=== PATIENT | female | born 1950 | race Caucasian/White ===

== ENCOUNTER 2017-03-11 16:59 | Inpatient (IN) ==
[2017-03-11] MEDS ORDERED: 0.9 % Sodium Chloride 1,000 ML IVC ONE ×3 (17:12→19:53)
--- NOTE | 2017-03-11 18:19 | Emergency Department Note ---
Disposition Clinical Impression: Neck pain, Elevated troponin I level Hypotension Qualifiers: Hypotension type: unspecified hypotension type Qualified Code(s): I95.9 - Hypotension, unspecified [id number] kidney injury Qualifiers: Acute renal failure type: unspecified Chronic kidney disease stage: unspecified stage Qualified Code(s): N17.9 - Acute kidney failure, unspecified; N18.9 - Chronic kidney disease, unspecified; N18.9 - Chronic kidney disease, unspecified Disposition: Admitted As Inpatient Condition: Serious Time of Disposition: 23:09 General Adult HPI - General Chief complaint: ED Altered Mental Status Stated complaint: vision changes Time Seen by Provider: 03/11/17 17:10 Source: EMS Nursing Notes Reviewed: Yes Vital Signs Reviewed: Yes - History of Present Illness HPI Narrative: 66-year-old female who presents after a presyncopal episode with bilateral blurry vision and generalized weakness. Patient also complains of exacerbation of her neck pain. Patient states she has chronic neck pain but it seems worse. Patient states she was driving at the time when her symptoms started. Patient denies any chest pain but is just weak all over. States neck pain is 10 /10 and denies headache. Patient denies any recent sick contacts. She has a history of [place] COPD, hypertension, hyperlipidemia, and renal disease but no history of CVA/TIA. Pain Scale: 4 - Related Data Home Medications Medication Instructions Recorded Confirmed Albuterol Sulfate [Albuterol 2 puff IH Q4H PRN 11/04/15 03/11/17 Inhaler] Fluticasone Propionate Nasal 2 spray NS BID 11/04/15 03/11/17 [Flonase] Zolpidem [Ambien] 10 mg PO HS PRN 11/04/15 03/11/17 Apixaban [Eliquis] 5 mg PO BID 03/11/17 03/11/17 Baclofen 20 mg PO TID 03/11/17 03/11/17 Metoprolol XL (24 HR) Succ [Toprol 50 mg PO DAILY 03/11/17 03/11/17 Xl] Nitroglycerin [Nitrostat] 0.4 mg SL Q5-6MIN PRN 03/11/17 03/11/17 Nystatin POWDER [Nystop] 1 appl TP BID 03/11/17 03/11/17 Oxycodone HCl/Acetaminophen 1 tab PO TID PRN MDD 3 03/11/17 03/11/17 [Percocet 7.5-325 mg Tablet] Spironolactone [Aldactone] 50 mg PO DAILY 03/11/17 03/11/17 Tizanidine HCl [Zanaflex] 4 mg PO Q8H PRN 03/11/17 03/11/17 Venlafaxine HCl [Venlafaxine HCl 75 mg PO QDPC 03/11/17 03/11/17 ER] Previous Rx's Medication Instructions Recorded Furosemide [Lasix] 40 mg PO BID #60 tablet 11/12/15 Lansoprazole [Prevacid] 30 mg PO DAILY #30 capsule. 11/12/15 Modafinil [Provigil] 200 mg PO BID #60 tablet 11/12/15 Pramipexole [Mirapex] 0.5 mg PO DAILY #30 tablet 11/12/15 RisperiDONE [Risperdal] 1 mg PO HS 30 Days tablet 11/12/15 Simvastatin [Zocor] 20 mg PO HS #30 tablet 11/12/15 Apixaban [Eliquis] 5 mg PO BID #60 tablet 05/27/16 Allergies Allergy/AdvReac Type Severity Reaction Status Date / Time aspirin Allergy Nausea Verified 03/23/16 21:09 adhesive tape AdvReac See Verified 03/23/16 21:09 Comments cephalexin [From Keflex] AdvReac See Verified 03/23/16 21:09 Comments codeine AdvReac Abdominal Verified 03/25/16 16:21 Pain Iodinated Contrast- Oral and AdvReac Hives Verified 03/23/16 21:09 IV Dye mannitol [From Reclast] AdvReac See Verified 03/23/16 21:09 Comments water for injection,sterile AdvReac See Verified 03/23/16 21:09 [From Reclast] Comments zoledronic acid AdvReac See Verified 03/23/16 21:09 [From Reclast] Comments All systems ED: reviewed and negative except as stated. Review of Systems: As Per HPI Constitutional: Reports: weakness. Denies: fever Eyes: Reports: vision change ENT ED: Denies: congestion Cardiovascular: Denies: chest pain, palpitations, dyspnea on exertion Respiratory: Denies: cough, dyspnea, wheezes, hemoptysis Gastrointestinal: Denies: abdominal pain, nausea, vomiting, diarrhea Genitourinary: Denies: urgency, dysuria Musculoskeletal: Reports: neck pain. Denies: back pain Integumentary: Denies: rash Neurological: Reports: weakness, confusion. Denies: headache, numbness, paresthesias Psychiatric: Reports: anxiety Endocrine: Reports: fatigue Past Medical History - Past Medical History Attestation: Yes The following information was validated with the patient. Source: patient Medical history: Reports: arthritis, COPD, DVT, GERD, hyperlipidemia, hypertension, migraine, myocardial infarction, RA, renal disease, other Surgical history: Reports: appendectomy, colectomy, orthopedic, other, pacemaker /AICD, other Psychiatric history: Reports: no psych history CHAIN CARRIER history: Reports: no CHAIN CARRIER history - Social History Smoking Status: Never smoker Smokeless Tobacco Status: No Alcohol use: Reports: none Drug use: Reports: none Physical Exam Vital Signs Temperature 97.6 F 03/11/17 17:08 Pulse Rate 107 03/11/17 17:08 Respiratory Rate 16 03/11/17 17:08 Blood Pressure 51/32 03/11/17 17:08 O2 Sat by Pulse Oximetry 92 03/11/17 17:08 Temperature 98.0 F 03/11/17 21:15 Pulse Rate 65 03/11/17 22:00 Respiratory Rate 18 03/11/17 22:00 Blood Pressure 82/63 03/11/17 22:00 O2 Sat by Pulse Oximetry 100 03/11/17 22:00 Oxygen Delivery Oxygen Delivery Nasal Cannula 66-year-old female who is alert and oriented 3 and GCS of 15 but appears pale and is generally weak all over and lethargic. Patient has no loss of sensation to the extremities. Patient has strength that equally at 3/5 bilaterally upper and lower extremities. Patient has no pronator drift. Patient has no facial droop or slurring of words. Patient presented hypotensive at 51/32 and is actively having any chest pain or shortness of breath. - General Limitations: physical limitation General appearance: alert, lethargic - Head Head exam: atraumatic, normocephalic, normal inspection - Eye Eye exam: Present: normal appearance, PERRL, EOMI - ENT ENT exam: normal exam, normal oropharynx, mucous membranes dry - Neck Neck exam: Present: normal inspection, full ROM, trachea midline, tenderness - Chest Chest inspection: Present: normal inspection, symmetric chest wall rise - Respiratory Respiratory exam: Present: normal lung sounds bilaterally. Absent: respiratory distress, wheezes - Cardiovascular Cardiovascular exam: Present: normal rhythm, irregular rhythm, normal heart sounds - Abdominal Exam Abdominal exam: Present: soft, Non-Tender. Absent: tenderness, distention, guarding, rebound, rigidity - Extremities Exam Extremities exam: Present: normal inspection, full ROM. Absent: tenderness, pedal edema Course - Consultations Consultation #1: Troponin 0.04 called by the lab Time: 18:46 Vital Signs Temperature 97.6 F 03/11/17 17:08 Pulse Rate 107 03/11/17 17:08 Respiratory Rate 16 03/11/17 17:08 Blood Pressure 51/32 03/11/17 17:08 O2 Sat by Pulse Oximetry 92 03/11/17 17:08 Temperature 98.0 F 03/11/17 21:15 Pulse Rate 65 03/11/17 22:00 Respiratory Rate 18 03/11/17 22:00 Blood Pressure 82/63 03/11/17 22:00 O2 Sat by Pulse Oximetry 100 03/11/17 22:00 Oxygen Delivery Oxygen Delivery Nasal Cannula Medical Decision Making - [facility] Narrative Medical decision making narrative: Patient presents with generalized weakness and hypertension and neck pain is concerning for carotid dissection/vertebrobasilar dissection, CVA/TIA, heart failure, ACS/ND, PE. Patient had negative or logic focal deficits, no chest pain or signs of ischemia on her EKG, pulses equal bilaterally. Tests a d-dimer which came back negative and patient is not symptomatically short of breath simply generally weak. Patient is anemic chronically and is around her baseline. Patient has one kidney and has slight worsening of BUN and creatinine which was already elevated and the rest of patient's chemistries show no abnormalities. Troponin mildly elevated at 0.04 which may be reactionary to the patient's hypotension. Patient is responding to fluid boluses and is currently on her third with a blood pressure 77/55. Patient's is no longer lethargic. Patient will receive another liter. Central line was placed in right IJ by Dr. Farris emergency medicine resident and patient tolerated the procedure well. Post chest x-ray shows proper placement and no pneumothorax. Patient now has vascular access in case she needs pressors to sustain her blood pressure. CT of head and neck were negative for any abnormalities. Chest x-ray showed no abnormalities. Current plans the patient to continue treatment and evaluation in ICU. After 4 L IV normal saline patient has a blood pressure systolic greater than 100. Patient was accepted to the ICU by Dr. Daniels. - Lab Data Lab results reviewed: Yes I reviewed the patient's lab results. Lab results narrative: Short CBC 03/11/17 Range/Units 18:09 WBC 6.3 (4.3-11.1) K/mcL Hgb 10.1 L (11.5-15.4) g/dL Hct 32.7 L (35.3-44.9) % Plt Count 184 (140-400) K/mcL Neutrophils # 4.0 (1.6-8.9) K/mcL BMP 03/11/17 Range/Units 18:03 Sodium 141 (136-145) mEq/L Potassium 4.5 (3.5-4.5) mEq/L Chloride 109 (98-109) mEq/L Carbon Dioxide 23 (19-29) mEq/L BUN 35 H (7-20) mg/dL Creatinine 1.77 H (0.57-1.11) mg/dL Glucose 80 (70-99) mg/dL Calcium 8.2 L (8.6-10.8) mg/dL Cardiac Enzymes 03/11/17 Range/Units 18:09 Troponin I 0.04 H* (0-0.03) ng/mL Liver Function 03/11/17 Range/Units 18:03 Total Bilirubin 0.4 (0.2-1.2) mg/dL Direct Bilirubin 0.2 (0.0-0.5) mg/dL AST 22 (5-34) Units/L ALT 12 (0-55) Units/L Alkaline Phosphatase 88 (38-126) Units/L Albumin 3.0 L (3.5-5.0) g/dL Urine 03/11/17 Range/Units 18:22 Urine Color Yellow (Yellow) Urine Clarity Clear (Clear) Urine pH 6.0 (5.0-8.0) pH Units Ur Specific [place] 1.015 (1.010-1.025) Urine Protein Negative (Neg-Trace) mg/dL Urine Glucose (UA) Normal (Normal) mg/dL Result diagrams: 03/11/17 18:09 12/14/17 18:03 Lab Results 03/11/17 03/11/17 03/11/17 Range/Units 18:03 18:03 18:09 WBC 6.3 (4.3-11.1) K/mcL RBC 3.49 L (3.82-4.97) M/mcL Hgb 10.1 L (11.5-15.4) g/dL Hct 32.7 L (35.3-44.9) % MCV 93.7 (83.0-100.0) fL MCH 28.9 (28.0-33.3) pg MCHC 30.9 L (31.6-35.5) g/dL RDW 15.9 H (11.5-14.5) % Plt Count 184 (140-400) K/mcL MPV 10.6 (9.4-12.4) fL Immature Gran % 0.5 (0-4) % Seg Neutrophils % 62.9 % Lymphocytes % 23.8 % Monocytes % 11.5 % Eosinophils % 0.8 % Basophils % 0.5 % Neutrophils # 4.0 (1.6-8.9) K/mcL Lymphocytes # 1.5 (0.6-4.6) K/mcL Monocytes # 0.7 (0.0-1.3) K/mcL Eosinophils # 0.1 (0.0-0.6) K/mcL Basophils # 0.0 (0.0-0.2) K/mcL APTT (26.0-36.0) Seconds D-Dimer (0-500) ng/mLFEU Sodium 141 (136-145) mEq/L Potassium 4.5 (3.5-4.5) mEq/L Chloride 109 (98-109) mEq/L Carbon Dioxide 23 (19-29) mEq/L BUN 35 H (7-20) mg/dL Creatinine 1.77 H (0.57-1.11) mg/dL Est GFR ( Amer) 35 L (> 60) Est GFR (Non-Af Amer) 29 L (> 60) BUN/Creatinine Ratio 20 (6-26) Glucose 80 (70-99) mg/dL Calculated Osmolality 299 (280-300) Lactic Acid (0.5-2.2) mmol/L Calcium 8.2 L (8.6-10.8) mg/dL Total Bilirubin 0.4 (0.2-1.2) mg/dL Direct Bilirubin 0.2 (0.0-0.5) mg/dL Indirect Bilirubin 0.2 (0.0-1.2) mg/dL AST 22 (5-34) Units/L ALT 12 (0-55) Units/L Alkaline Phosphatase 88 (38-126) Units/L Troponin I (0-0.03) ng/mL B-Natriuretic Peptide (0-100) pg/mL Serum Total Protein 6.4 (6.0-8.3) g/dL Albumin 3.0 L (3.5-5.0) g/dL Globulin 3.4 (2.4-3.5) g/dL Albumin/Globulin Ratio 0.9 L (1.1-2.2) Lipase 14 (8-78) Units/L Random Cortisol 10.3 mcg/dl Urine Color (Yellow) Urine Clarity (Clear) Urine pH (5.0-8.0) pH Units Ur Specific [place] (1.010-1.025) Urine Protein (Neg-Trace) mg/dL Urine Glucose (UA) (Normal) mg/dL Urine Ketones (Negative) mg/dL Urine Blood (Negative) Urine Nitrite (Negative) Urine Bilirubin (Negative) Urine Urobilinogen (Normal) mg/dL Ur Leukocyte Esterase (Negative) Ur Culture Indicated? (NO) Blood Type Antibody Screen 03/11/17 03/11/17 03/11/17 Range/Units 18:09 18:09 18:09 WBC (4.3-11.1) K/mcL RBC (3.82-4.97) M/mcL Hgb (11.5-15.4) g/dL Hct (35.3-44.9) % MCV (83.0-100.0) fL MCH (28.0-33.3) pg MCHC (31.6-35.5) g/dL RDW (11.5-14.5) % Plt Count (140-400) K/mcL MPV (9.4-12.4) fL Immature Gran % (0-4) % Seg Neutrophils % % Lymphocytes % % Monocytes % % Eosinophils % % Basophils % % Neutrophils # (1.6-8.9) K/mcL Lymphocytes # (0.6-4.6) K/mcL Monocytes # (0.0-1.3) K/mcL Eosinophils # (0.0-0.6) K/mcL Basophils # (0.0-0.2) K/mcL APTT 21.5 L (26.0-36.0) Seconds D-Dimer 358 (0-500) ng/mLFEU Sodium (136-145) mEq/L Potassium (3.5-4.5) mEq/L Chloride (98-109) mEq/L Carbon Dioxide (19-29) mEq/L BUN (7-20) mg/dL Creatinine (0.57-1.11) mg/dL Est GFR ( Amer) (> 60) Est GFR (Non-Af Amer) (> 60) BUN/Creatinine Ratio (6-26) Glucose (70-99) mg/dL Calculated Osmolality (280-300) Lactic Acid 1.6 (0.5-2.2) mmol/L Calcium (8.6-10.8) mg/dL Total Bilirubin (0.2-1.2) mg/dL Direct Bilirubin (0.0-0.5) mg/dL Indirect Bilirubin (0.0-1.2) mg/dL AST (5-34) Units/L ALT (0-55) Units/L Alkaline Phosphatase (38-126) Units/L Troponin I 0.04 H* (0-0.03) ng/mL B-Natriuretic Peptide (0-100) pg/mL Serum Total Protein (6.0-8.3) g/dL Albumin (3.5-5.0) g/dL Globulin (2.4-3.5) g/dL Albumin/Globulin Ratio (1.1-2.2) Lipase (8-78) Units/L Random Cortisol mcg/dl Urine Color (Yellow) Urine Clarity (Clear) Urine pH (5.0-8.0) pH Units Ur Specific [place] (1.010-1.025) Urine Protein (Neg-Trace) mg/dL Urine Glucose (UA) (Normal) mg/dL Urine Ketones (Negative) mg/dL Urine Blood (Negative) Urine Nitrite (Negative) Urine Bilirubin (Negative) Urine Urobilinogen (Normal) mg/dL Ur Leukocyte Esterase (Negative) Ur Culture Indicated? (NO) Blood Type Antibody Screen 03/11/17 03/11/17 03/11/17 Range/Units 18:09 18:09 18:22 WBC (4.3-11.1) K/mcL RBC (3.82-4.97) M/mcL Hgb (11.5-15.4) g/dL Hct (35.3-44.9) % MCV (83.0-100.0) fL MCH (28.0-33.3) pg MCHC (31.6-35.5) g/dL RDW (11.5-14.5) % Plt Count (140-400) K/mcL MPV (9.4-12.4) fL Immature Gran % (0-4) % Seg Neutrophils % % Lymphocytes % % Monocytes % % Eosinophils % % Basophils % % Neutrophils # (1.6-8.9) K/mcL Lymphocytes # (0.6-4.6) K/mcL Monocytes # (0.0-1.3) K/mcL Eosinophils # (0.0-0.6) K/mcL Basophils # (0.0-0.2) K/mcL APTT (26.0-36.0) Seconds D-Dimer (0-500) ng/mLFEU Sodium (136-145) mEq/L Potassium (3.5-4.5) mEq/L Chloride (98-109) mEq/L Carbon Dioxide (19-29) mEq/L BUN (7-20) mg/dL Creatinine (0.57-1.11) mg/dL Est GFR ( Amer) (> 60) Est GFR (Non-Af Amer) (> 60) BUN/Creatinine Ratio (6-26) Glucose (70-99) mg/dL Calculated Osmolality (280-300) Lactic Acid (0.5-2.2) mmol/L Calcium (8.6-10.8) mg/dL Total Bilirubin (0.2-1.2) mg/dL Direct Bilirubin (0.0-0.5) mg/dL Indirect Bilirubin (0.0-1.2) mg/dL AST (5-34) Units/L ALT (0-55) Units/L Alkaline Phosphatase (38-126) Units/L Troponin I (0-0.03) ng/mL B-Natriuretic Peptide 184 H (0-100) pg/mL Serum Total Protein (6.0-8.3) g/dL Albumin (3.5-5.0) g/dL Globulin (2.4-3.5) g/dL Albumin/Globulin Ratio (1.1-2.2) Lipase (8-78) Units/L Random Cortisol mcg/dl Urine Color Yellow (Yellow) Urine Clarity Clear (Clear) Urine pH 6.0 (5.0-8.0) pH Units Ur Specific [place] 1.015 (1.010-1.025) Urine Protein Negative (Neg-Trace) mg/dL Urine Glucose (UA) Normal (Normal) mg/dL Urine Ketones Negative (Negative) mg/dL Urine Blood Negative (Negative) Urine Nitrite Negative (Negative) Urine Bilirubin Negative (Negative) Urine Urobilinogen Normal (Normal) mg/dL Ur Leukocyte Esterase Negative (Negative) Ur Culture Indicated? NO (NO) Blood Type O POSITIVE Antibody Screen NEGATIVE - Radiology Data Radiology results reviewed: Yes I reviewed the patient's radiology results. Head CT 03/11/17 17:15 IMPRESSION: No acute intracranial abnormality. D/ / Marce Dumont Cha, MD / Marce Dumont Cha, MD Interpreting Provider: Marce Dumont Cha, MD Cervical Spine CT 03/11/17 19:24 IMPRESSION: No acute abnormality of the cervical spine. D/ / Marce Dumont Cha, MD / Marce Dumont Cha, MD Interpreting Provider: Marce Dumont Cha, MD Chest X-Ray 03/11/17 20:24 IMPRESSION: Line placement without complicating feature. D/ / Ti Pal MD / Ti Pal MD Interpreting Provider: Ti Pal MD - EKG Data EKG #1 EKG attestation: Yes I reviewed and interpreted this EKG. EKG results narrative: EKG taken 03/11/2017 at 1701 hrs. shows A. fib at a rate of [address] elevation or depressions noted. Slight QT prolongation. His EKG for comparison taken 05/27/2016 shows a ventricular paced rhythm at 65 beats a minute.
[2017-03-11 18:20] LABS: Basophils % 0.5 %; Eosinophils # 0.1 K/mcL (0.0-0.6); Eosinophils % 0.8 %; Hematocrit 32.7 % (35.3-44.9); Hemoglobin 10.1 g/dL (11.5-15.4); Immature Granulocytes % 0.5 % (0-4); Lymphocytes # 1.5 K/mcL (0.6-4.6); Lymphocytes % 23.8 %; Mean Corpuscular HGB Conc 30.9 g/dL (31.6-35.5); Mean Corpuscular Hemoglobin 28.9 pg (28.0-33.3); Mean Corpuscular Volume 93.7 fL (83.0-100.0); Mean Platelet Volume 10.6 fL (9.4-12.4); Monocytes # 0.7 K/mcL (0.0-1.3); Monocytes % 11.5 %; Platelet Count 184 K/mcL (140-400); Red Blood Count 3.49 M/mcL (3.82-4.97); Red Cell Distribution Width 15.9 % (11.5-14.5); Segmented Neutrophils % 62.9 %
[2017-03-11 18:29] LABS: Activated Partial Thrombo Time 21.5 Seconds (26.0-36.0)
[2017-03-11 18:35] LABS: Albumin/Globulin Ratio 0.9 (1.1-2.2); Bilirubin,Direct 0.2 mg/dL (0.0-0.5); Bilirubin,Indirect 0.2 mg/dL (0.0-1.2); Bilirubin,Total 0.4 mg/dL (0.2-1.2); Calcium 8.2 mg/dL (8.6-10.8); Globulin 3.4 g/dL (2.4-3.5); Potassium 4.5 mEq/L (3.5-4.5); Total Protein 6.4 g/dL (6.0-8.3)
[2017-03-11 19:10] LABS: Bilirubin,Urine Negative (Negative); Blood,Urine Negative (Negative); Clarity,Urine Clear (Clear); Color,Urine Yellow (Yellow); Glucose,Urine (UA) Normal (Normal); Ketones,Urine Negative (Negative); Leukocyte Esterase,Urine Negative (Negative); Nitrite,Urine Negative (Negative); Protein,Urine Negative (Neg-Trace); Specific Gravity,Urine 1.015 (1.010-1.025); Urobilinogen,Urine Normal (Normal)
[2017-03-11] MEDS ORDERED: *HR* LORazepam 2 MG/ML VIAL IVP ONE (19:53)
--- NOTE | 2017-03-11 20:37 | Emergency Department Note ---
Disposition Clinical Impression: Hypotension Qualifiers: Hypotension type: unspecified hypotension type Qualified Code(s): I95.9 - Hypotension, unspecified Disposition: Admitted As Inpatient Condition: Fair Referrals: Addy Fraire MD [Primary Care Provider] - Forms: ED Satisfaction Letter General Adult HPI - General Chief complaint: ED Neuro Symptoms/Deficit Stated complaint: vision changes Time Seen by Provider: 03/11/17 17:10 Source: EMS - History of Present Illness HPI Narrative: This note is just on for procedure note for central line please refer to Dr. Morris note for full history and physical. Pain Scale: 7 - Related Data Home Medications Medication Instructions Recorded Confirmed Albuterol Sulfate [Albuterol 2 puff IH Q4H PRN 11/04/15 03/23/16 Inhaler] Fluticasone Propionate Nasal 2 spray NS BID 11/04/15 03/23/16 [Flonase] Interferon Beta-1A/Albumin [Rebif 0.5 ml IM QWEEK 11/04/15 03/23/16 44 Mcg/0.5 ml Syringe] Zolpidem [Ambien] 5 mg PO HS PRN 11/04/15 03/23/16 Acetaminophen [Tylenol] 500 mg PO Q6HR PRN 11/11/15 03/23/16 PredniSONE [Albin] 10 mg PO Q48H 03/23/16 03/23/16 Previous Rx's Medication Instructions Recorded Furosemide [Lasix] 40 mg PO BID #60 tablet 11/12/15 Lansoprazole [Prevacid] 30 mg PO DAILY #30 capsule. 11/12/15 Lisinopril [Zestril] 20 mg PO BID #30 tablet 11/12/15 Metoprolol Succinate 100 mg PO DAILY 30 Days tab.er.24h 11/12/15 Modafinil [Provigil] 200 mg PO BID #60 tablet 11/12/15 Pramipexole [Mirapex] 0.5 mg PO DAILY #30 tablet 11/12/15 RisperiDONE [Risperdal] 1 mg PO HS 30 Days tablet 11/12/15 Simvastatin [Zocor] 20 mg PO HS #30 tablet 11/12/15 amLODIPine [Norvasc] 5 mg PO DAILY 30 Days tablet 11/12/15 Apixaban [Eliquis] 5 mg PO BID #60 tablet 03/26/16 Metoprolol XL (24 HR) Succ [Toprol 100 mg PO DAILY tab.er.24h 03/26/16 Xl] Apixaban [Eliquis] 5 mg PO BID #60 tablet 05/27/16 Allergies Allergy/AdvReac Type Severity Reaction Status Date / Time aspirin Allergy Nausea Verified 03/23/16 21:09 adhesive tape AdvReac See Verified 03/23/16 21:09 Comments cephalexin [From Keflex] AdvReac See Verified 03/23/16 21:09 Comments codeine AdvReac Abdominal Verified 03/25/16 16:21 Pain Iodinated Contrast- Oral and AdvReac Hives Verified 03/23/16 21:09 IV Dye mannitol [From Reclast] AdvReac See Verified 03/23/16 21:09 Comments water for injection,sterile AdvReac See Verified 03/23/16 21:09 [From Reclast] Comments zoledronic acid AdvReac See Verified 03/23/16 21:09 [From Reclast] Comments Past Medical History - Past Medical History Medical history: Reports: arthritis, COPD, DVT, GERD, hyperlipidemia, hypertension, migraine, myocardial infarction, RA, renal disease, other Surgical history: Reports: appendectomy, colectomy, orthopedic, other, pacemaker /AICD, other Psychiatric history: Reports: no psych history PATIENT RELATIONS COORDINATOR history: Reports: no PATIENT RELATIONS COORDINATOR history - Social History Smoking Status: Never smoker Smokeless Tobacco Status: No Alcohol use: Reports: none Drug use: Reports: none Physical Exam - General General appearance: lethargic Course Vital Signs Temperature 97.6 F 03/11/17 17:08 Pulse Rate 107 03/11/17 17:08 Respiratory Rate 16 03/11/17 17:08 Blood Pressure 51/32 03/11/17 17:08 O2 Sat by Pulse Oximetry 92 03/11/17 17:08 Temperature 97.6 F 03/11/17 17:08 Pulse Rate 65 03/11/17 18:58 Respiratory Rate 12 03/11/17 18:58 Blood Pressure 77/55 03/11/17 18:58 O2 Sat by Pulse Oximetry 89 03/11/17 18:58 Oxygen Delivery Oxygen Delivery Nasal Cannula Procedures - Central Line Placement Right IJ Central Line Inserted*: Yes Central Line Catheter Replacement*: Yes Central Line Insertion: elective Consent Obtained: written consent Procedural Pause: verify patient name and date of , timeout performed per policy, davon and assess the site, assemble equipment and verify supplies, perform hand hygiene Patient Placed on Monitor/Pulse Ox: Yes During the Procedure: clinician is wearing sterile gloves, cap, mask,& gown during insertion, sterile field and sterile technique are maintained, patient's face is covered with drape or mask and wearing a cap, everyone in room is wearing a mask Central Line Prep: Chlorhexidine scrub Prep the Procedure Site: apply chloraprep to the skin using a back and forth scrubbing motion, apply chloraprep for 30 seconds (upper body), 1-2 min ( femoral sites), allow prep to dry, drape the patient with a full body drape Local Anesthetic: lidocaine 1% Amount of anesthesia used (mL): 3 Ultrasound Used for Placement: Yes Central Line Lumen Inserted: triple Post Procedure: sutured in place, good blood return, all ports aspirated, flushed, capped, sterile dressing applied, guide wire removed and visualized Post Procedure X-Ray: tip of catheter in good position, no pneumothorax seen Patient Tolerated Procedure: well, no complications Complications: none Name of Clinician Inserting Central Line: Dr. Celso Farris Clinician Assisting/Completing Checklist: Dr. Ross Enrique Date: 03/11/17 Time: 20:38 Medical Decision Making - MDM Narrative Medical decision making narrative: This note is just on for procedure note for central line please refer to Dr. Morris note for full history and physical. - Lab Data Result diagrams: 03/11/17 18:09 03/11/17 18:03 Lab Results 03/11/17 03/11/17 03/11/17 Range/Units 18:03 18:09 18:09 WBC 6.3 (4.3-11.1) K/mcL RBC 3.49 L (3.82-4.97) M/mcL Hgb 10.1 L (11.5-15.4) g/dL Hct 32.7 L (35.3-44.9) % MCV 93.7 (83.0-100.0) fL MCH 28.9 (28.0-33.3) pg MCHC 30.9 L (31.6-35.5) g/dL RDW 15.9 H (11.5-14.5) % Plt Count 184 (140-400) K/mcL MPV 10.6 (9.4-12.4) fL Immature Gran % 0.5 (0-4) % Seg Neutrophils % 62.9 % Lymphocytes % 23.8 % Monocytes % 11.5 % Eosinophils % 0.8 % Basophils % 0.5 % Neutrophils # 4.0 (1.6-8.9) K/mcL Lymphocytes # 1.5 (0.6-4.6) K/mcL Monocytes # 0.7 (0.0-1.3) K/mcL Eosinophils # 0.1 (0.0-0.6) K/mcL Basophils # 0.0 (0.0-0.2) K/mcL APTT 21.5 L (26.0-36.0) Seconds D-Dimer 358 (0-500) ng/mLFEU Sodium 141 (136-145) mEq/L Potassium 4.5 (3.5-4.5) mEq/L Chloride 109 (98-109) mEq/L Carbon Dioxide 23 (19-29) mEq/L BUN 35 H (7-20) mg/dL Creatinine 1.77 H (0.57-1.11) mg/dL Est GFR ( Amer) 35 L (> 60) Est GFR (Non-Af Amer) 29 L (> 60) BUN/Creatinine Ratio 20 (6-26) Glucose 80 (70-99) mg/dL Calculated Osmolality 299 (280-300) Lactic Acid (0.5-2.2) mmol/L Calcium 8.2 L (8.6-10.8) mg/dL Total Bilirubin 0.4 (0.2-1.2) mg/dL Direct Bilirubin 0.2 (0.0-0.5) mg/dL Indirect Bilirubin 0.2 (0.0-1.2) mg/dL AST 22 (5-34) Units/L ALT 12 (0-55) Units/L Alkaline Phosphatase 88 (38-126) Units/L Troponin I (0-0.03) ng/mL B-Natriuretic Peptide (0-100) pg/mL Serum Total Protein 6.4 (6.0-8.3) g/dL Albumin 3.0 L (3.5-5.0) g/dL Globulin 3.4 (2.4-3.5) g/dL Albumin/Globulin Ratio 0.9 L (1.1-2.2) Lipase 14 (8-78) Units/L Urine Color (Yellow) Urine Clarity (Clear) Urine pH (5.0-8.0) pH Units Ur Specific [place] (1.010-1.025) Urine Protein (Neg-Trace) mg/dL Urine Glucose (UA) (Normal) mg/dL Urine Ketones (Negative) mg/dL Urine Blood (Negative) Urine Nitrite (Negative) Urine Bilirubin (Negative) Urine Urobilinogen (Normal) mg/dL Ur Leukocyte Esterase (Negative) Ur Culture Indicated? (NO) Blood Type Antibody Screen 03/11/17 03/11/17 03/11/17 Range/Units 18:09 18:09 18:09 WBC (4.3-11.1) K/mcL RBC (3.82-4.97) M/mcL Hgb (11.5-15.4) g/dL Hct (35.3-44.9) % MCV (83.0-100.0) fL MCH (28.0-33.3) pg MCHC (31.6-35.5) g/dL RDW (11.5-14.5) % Plt Count (140-400) K/mcL MPV (9.4-12.4) fL Immature Gran % (0-4) % Seg Neutrophils % % Lymphocytes % % Monocytes % % Eosinophils % % Basophils % % Neutrophils # (1.6-8.9) K/mcL Lymphocytes # (0.6-4.6) K/mcL Monocytes # (0.0-1.3) K/mcL Eosinophils # (0.0-0.6) K/mcL Basophils # (0.0-0.2) K/mcL APTT (26.0-36.0) Seconds D-Dimer (0-500) ng/mLFEU Sodium (136-145) mEq/L Potassium (3.5-4.5) mEq/L Chloride (98-109) mEq/L Carbon Dioxide (19-29) mEq/L BUN (7-20) mg/dL Creatinine (0.57-1.11) mg/dL Est GFR ( Amer) (> 60) Est GFR (Non-Af Amer) (> 60) BUN/Creatinine Ratio (6-26) Glucose (70-99) mg/dL Calculated Osmolality (280-300) Lactic Acid 1.6 (0.5-2.2) mmol/L Calcium (8.6-10.8) mg/dL Total Bilirubin (0.2-1.2) mg/dL Direct Bilirubin (0.0-0.5) mg/dL Indirect Bilirubin (0.0-1.2) mg/dL AST (5-34) Units/L ALT (0-55) Units/L Alkaline Phosphatase (38-126) Units/L Troponin I 0.04 H* (0-0.03) ng/mL B-Natriuretic Peptide 184 H (0-100) pg/mL Serum Total Protein (6.0-8.3) g/dL Albumin (3.5-5.0) g/dL Globulin (2.4-3.5) g/dL Albumin/Globulin Ratio (1.1-2.2) Lipase (8-78) Units/L Urine Color (Yellow) Urine Clarity (Clear) Urine pH (5.0-8.0) pH Units Ur Specific [place] (1.010-1.025) Urine Protein (Neg-Trace) mg/dL Urine Glucose (UA) (Normal) mg/dL Urine Ketones (Negative) mg/dL Urine Blood (Negative) Urine Nitrite (Negative) Urine Bilirubin (Negative) Urine Urobilinogen (Normal) mg/dL Ur Leukocyte Esterase (Negative) Ur Culture Indicated? (NO) Blood Type Antibody Screen 03/11/17 03/11/17 Range/Units 18:09 18:22 WBC (4.3-11.1) K/mcL RBC (3.82-4.97) M/mcL Hgb (11.5-15.4) g/dL Hct (35.3-44.9) % MCV (83.0-100.0) fL MCH (28.0-33.3) pg MCHC (31.6-35.5) g/dL RDW (11.5-14.5) % Plt Count (140-400) K/mcL MPV (9.4-12.4) fL Immature Gran % (0-4) % Seg Neutrophils % % Lymphocytes % % Monocytes % % Eosinophils % % Basophils % % Neutrophils # (1.6-8.9) K/mcL Lymphocytes # (0.6-4.6) K/mcL Monocytes # (0.0-1.3) K/mcL Eosinophils # (0.0-0.6) K/mcL Basophils # (0.0-0.2) K/mcL APTT (26.0-36.0) Seconds D-Dimer (0-500) ng/mLFEU Sodium (136-145) mEq/L Potassium (3.5-4.5) mEq/L Chloride (98-109) mEq/L Carbon Dioxide (19-29) mEq/L BUN (7-20) mg/dL Creatinine (0.57-1.11) mg/dL Est GFR ( Amer) (> 60) Est GFR (Non-Af Amer) (> 60) BUN/Creatinine Ratio (6-26) Glucose (70-99) mg/dL Calculated Osmolality (280-300) Lactic Acid (0.5-2.2) mmol/L Calcium (8.6-10.8) mg/dL Total Bilirubin (0.2-1.2) mg/dL Direct Bilirubin (0.0-0.5) mg/dL Indirect Bilirubin (0.0-1.2) mg/dL AST (5-34) Units/L ALT (0-55) Units/L Alkaline Phosphatase (38-126) Units/L Troponin I (0-0.03) ng/mL B-Natriuretic Peptide (0-100) pg/mL Serum Total Protein (6.0-8.3) g/dL Albumin (3.5-5.0) g/dL Globulin (2.4-3.5) g/dL Albumin/Globulin Ratio (1.1-2.2) Lipase (8-78) Units/L Urine Color Yellow (Yellow) Urine Clarity Clear (Clear) Urine pH 6.0 (5.0-8.0) pH Units Ur Specific [place] 1.015 (1.010-1.025) Urine Protein Negative (Neg-Trace) mg/dL Urine Glucose (UA) Normal (Normal) mg/dL Urine Ketones Negative (Negative) mg/dL Urine Blood Negative (Negative) Urine Nitrite Negative (Negative) Urine Bilirubin Negative (Negative) Urine Urobilinogen Normal (Normal) mg/dL Ur Leukocyte Esterase Negative (Negative) Ur Culture Indicated? NO (NO) Blood Type O POSITIVE Antibody Screen NEGATIVE
--- NOTE | 2017-03-11 20:48 | Emergency Department Note ---
START Narrative - START START: I examined this patient and my medical decision-making was reviewed with the Resident Physician. I agree with the documented findings, disposition and treatment plan as described except to the extent set forth below. 66-year-old female presents emergency room for weakness as well as neck pain and upper back and shoulder pain. She got up this morning and states she felt fine and then was going to her doctor's appointment for a scheduled routine visit. She started feeling weak on the way N when she thought she was losing her vision. She was leaving to go home and was sent over to the ER as she began to feel more weak and was hypotensive. Upon arrival patient was 42/20 to use as with her blood pressure. She denies any vomiting or diarrhea. She did eat today. No cough or sputum production. No chest pain. She does feel slightly short of breath. Workup in the ER did not reveal any significant lab abnormalities other than a slightly elevated creatinine. She does only have one kidney. We did a CT of her head due to her weakness and that was negative. She is complaining of diffuse neck pain. She states she has chronic neck pain but felt worse today. I elected to do a CT of the cervical spine to rule out any pathological fractures. That was interpreted by radiology as negative. Chest x-ray was unchanged from previous. Patient received a couple liters of fluid and she was still hypotensive. We then placed a right internal jugular central line without any complications. This was done by Dr. Farris. Follow-up chest x-ray revealed the line to be in appropriate position without any abnormalities. We spoke with the hospitalist. Patient will be admitted to the ICU. Critical care time was 50 minutes spent in medical management of hypotensive issues as well as workup of the neck pain.
[2017-03-11] MEDS ORDERED: 0.9 % Sodium Chloride 1,000 ML IVC SCH (22:30)
[2017-03-11] MEDS ORDERED: *HR* OxyCODONE/APAP 7.5/325 TABLET PO PRN (22:50)
[2017-03-11] MEDS ORDERED: tiZANidine 4 MG TABLET PO PRN (22:50)
[2017-03-11] MEDS ORDERED: Baclofen 10 MG TABLET PO SCH (23:00)
--- NOTE | 2017-03-12 | Internal Med History&Physical ---
<Lewis Mary - Last Filed: 03/12/17 01:24> Date of Encounter: 03/12/17 Time of Encounter: 20:30 Assessment and Plan (1) Hypovolemic shock Current visit: Yes Status: Acute Patient has a known history of CHF, however clinically she did not seem like she was fluid overload and her last echocardiogram (2015) shows an EF of 60-65% . She only admitted to two bouts of loose stools and denied any vomiting. She denies any chest pain. EKG on arrival showed no ST-elevations or sings of ischemia. Original EKG did show signs of A-fib, but repeat EKG showed a paced rhythm. No recent illness, fever, or suspected source of infection. WBC count was normal. Her low blood pressure seems likely to be due to a combination of dehydration, given that her creatinine is above her baseline, and the fact that she was taking her antihypertensive medications while she was dehydrated. Patient was given 3 L of NS bolus in the ER. Her BP afterwards was 89/70. MAP is currently 65. - maintenance IV fluids. - Monitor MAP. Keep above 55. IV fluid bolus as needed. - Echocardiogram. - Hold BP medications. (2) Fcuwn-oh-itycihm kidney injury Current visit: Yes Status: Acute Baseline 0.8 to 0.9. Creatinine currently at 1.77. Likely secondary to dehydration. - IV fluids. Qualifiers: Acute renal failure type: unspecified Chronic kidney disease stage: unspecified stage Qualified Code(s): N17.9 - Acute kidney failure, unspecified ; N18.9 - Chronic kidney disease, unspecified; N18.9 - Chronic kidney disease, unspecified (3) History of DVT (deep vein thrombosis) Current visit: Yes Status: Acute - On eliquis. (4) Elevated troponin I level Current visit: Yes Status: Acute Troponin level at 0.04. Likely due to tachycardia and demand ischemia. -Continue to trend troponin. (5) GERD (gastroesophageal reflux disease) Current visit: Yes Status: Acute - On lansoprazole. Qualifiers: Esophagitis presence: esophagitis presence not specified Qualified Code(s) : K21.9 - Gastro-esophageal reflux disease without esophagitis (6) History of nephrectomy, unilateral Current visit: Yes Status: Acute (7) History of hyperlipidemia Current visit: Yes Status: Acute - On simvistatin. (8) COPD (chronic obstructive pulmonary disease) Current visit: Yes Status: Acute - Albuterol PRN. Qualifiers: COPD type: chronic bronchitis Chronic bronchitis type: unspecified Qualified Code(s): J42 - Unspecified chronic bronchitis (9) History of CHF (congestive heart failure) Current visit: Yes Status: Acute Last echocardiogram in 2016 shows EF of 60-65%. - Repeat echocardiogram. (10) DVT prophylaxis Current visit: Yes Status: Acute -On eliquis. Internal Medicine - H&P: HPI Chief complaint: SOB, blurry vision, weakeness Admitted From: Emergency Dept History of present illness: Ms. Roberts is a 66 year old female with a PMHx of CKD, COPD, HTN, and ND with a PSHx of R nephrectomy, colectomy, and pacemaker/AICD that presents for SOB, vision blurriness, and weakness. Patient says that she has been SOB for the past 3 weeks and it has come about while at rest and with exertion. She says that she started feeling light-headed and SOB when she was driving to her doctor 's appointment this afternoon. After her appointment when she went to last picker her prescriptions, she started experiencing blurry vision and even more weakness. Shortly afterwards she was brought to the ED. She denies any LOC, fall or recent trauma. She denies fever or any recent illness. She does admit to a clear productive cough for the past 2 weeks. She denies any chest pain, but does admit to heart palpitations today. She admits to nausea for the past week, but denies any vomiting or abdominal pain. She admits to some mild diarrhea for the past 2 days. She denies any melena or hematochezia. She admits to hematuria for the past 3 weeks, but she says she oftens gets this due to her CKD She has been able to void normally and denies any dysuria. Past Med Surg Social Fam HX - Past Medical History Medical history: arthritis, COPD, DVT, GERD, hyperlipidemia, hypertension, migraine, myocardial infarction, RA, renal disease, other Psychiatric history: no psych history - Past Surgical History Surgical History: appendectomy, colectomy, orthopedic, other, pacemaker/AICD, other - Social History Smoking Status: Never smoker Smokeless Tobacco Status: No Alcohol use: none Drug use: none - Family History Father Hx Family Cancer: Yes Internal Medicine - H&P: Meds Albuterol Sulfate [Albuterol Inhaler] 2 puff IH Q4H PRN 11/04/15 [History] Fluticasone Propionate Nasal [Flonase] 2 spray NS BID 11/04/15 [History] Zolpidem [Ambien] 10 mg PO HS PRN 11/04/15 [History] Furosemide [Lasix] 40 mg PO BID #60 tablet 11/12/15 [Rx] Lansoprazole [Prevacid] 30 mg PO DAILY #30 capsule. 11/12/15 [Rx] Modafinil [Provigil] 200 mg PO BID #60 tablet 11/12/15 [Rx] Pramipexole [Mirapex] 0.5 mg PO DAILY #30 tablet 11/12/15 [Rx] RisperiDONE [Risperdal] 1 mg PO HS 30 Days tablet 11/12/15 [Rx] Simvastatin [Zocor] 20 mg PO HS #30 tablet 11/12/15 [Rx] Apixaban [Eliquis] 5 mg PO BID #60 tablet 05/27/16 [Rx] Apixaban [Eliquis] 5 mg PO BID 03/11/17 [History] Baclofen 20 mg PO TID 03/11/17 [History] Metoprolol XL (24 HR) Succ [Toprol Xl] 50 mg PO DAILY 03/11/17 [History] Nitroglycerin [Nitrostat] 0.4 mg SL Q5-6MIN PRN 03/11/17 [History] Nystatin POWDER [Nystop] 1 appl TP BID 03/11/17 [History] Oxycodone HCl/Acetaminophen [Percocet 7.5-325 mg Tablet] 1 tab PO TID PRN MDD 3 03/11/17 [History] Spironolactone [Aldactone] 50 mg PO DAILY 03/11/17 [History] Tizanidine HCl [Zanaflex] 4 mg PO Q8H PRN 03/11/17 [History] Venlafaxine HCl [Venlafaxine HCl ER] 75 mg PO QDPC 03/11/17 [History] 3 Allergy/AdvReac Type Severity Reaction Status Date / Time aspirin Allergy Nausea Verified 03/23/16 21:09 adhesive tape AdvReac See Verified 03/23/16 21:09 Comments cephalexin [From Keflex] AdvReac See Verified 03/23/16 21:09 Comments codeine AdvReac Abdominal Verified 03/25/16 16:21 Pain Iodinated Contrast- Oral and AdvReac Hives Verified 03/23/16 21:09 IV Dye mannitol [From Reclast] AdvReac See Verified 03/23/16 21:09 Comments water for injection,sterile AdvReac See Verified 03/23/16 21:09 [From Reclast] Comments zoledronic acid AdvReac See Verified 03/23/16 21:09 [From Reclast] Comments All Systems PM: A 10-system review of systems was performed and is negative for pertinent findings except as documented above in the HPI. Review of systems: As per HPI. - Constitutional Vitals: Temp Pulse Resp BP Pulse Ox 98.0 F 65 100 100/48 16 03/11/17 21:15 03/11/17 23:21 03/11/17 23:00 03/11/17 23:00 03/11/17 23:00 General appearance: Present: A&O X 3, pleasant, obese, answers questions appropriately - Eye Eye exam: Present: EOMI, PERRL Pupils: Present: PERRL - Respiratory Respiratory exam: Present: rales, wheezes (Minor wheezing in left lower posteior lung field. ) - Cardiovascular Cardiovascular exam: Present: RRR, +S1, +S2 - GI/Abdominal GI/Abdominal exam: Present: normal bowel sounds, soft. Absent: guarding, rebound, tenderness - Extremities Exam Extremities exam: Present: full ROM, normal capillary refill, radial pulses palpable and symmetrical. Absent: calf tenderness, pedal edema Additional comments: Pedal pulses intact and symmetrical bilaterally. Both feet were cool to otuch. Toes were slightly bluish in color bilaterally. - Neurological Exam Neurological exam: Present: alert, CN II-XII intact, oriented X3, reflexes normal, no focal deficits, strengths equal and symetr throughout. Absent: facial droop, speech deficit Internal Med - H&P Results - Labs CBC & Chem 7: 03/11/17 18:09 03/11/17 18:03 <Jeremiah Brenner - Last Filed: 03/12/17 03:16> Date of Encounter: 03/11/17 Internal Medicine - H&P: HPI History of present illness: Ms. Roberts is a 66 year old female All Systems PM: A 10-system review of systems was performed and is negative for pertinent findings except as documented above in the HPI. - Constitutional Vitals: Temp Pulse Resp BP Pulse Ox 98.0 F 65 12 84/52 100 03/11/17 21:15 03/12/17 02:00 03/12/17 02:00 03/12/17 02:00 03/12/17 02:00 Internal Med - H&P Results - Labs CBC & Chem 7: 03/11/17 18:09 03/11/17 18:03 - Attending Attestation I examined this patient and my medical decision-making was reviewed with the Resident Physician Dr. Guy. I agree with the documented findings, disposition and treatment plan as described except to the extent set forth below. Ms. Roberts is a 66 year old female with a PMHx of Diastolic CHF, COPD, HTN, Tachy elham syndrome s/p Pacemaker and ND with a PSHx of R nephrectomy, colectomy, pt presented to ER with generalized weakness and blurry vision. She happened to have severe hypotension with out any signs of infection. She denied any CP / SOB. Feels weak and lethargic. Her blurry vision improved now with IV hydration. Gen: A, A, O x 3 Chest: Diminished BS b/l, no crackles, No rales Heart : S1 S2 ++ RRR No murmurs Abd: Soft, NT A/P 1. Shock / Severe hypotension Mostly due to dehydration and BP medication side effect Held all her BP meds Aggressive IV hydration trend on troponins no signs of infection 2D Echo in AM 2. ADE with ?? CKD She does have prerenal ADE mostly due to dehdyration cont aggressive IV hydration avoid nephrotoxic meds
[2017-03-12] MEDS: Fluticasone Propionate Nasal 50 MCG/SPRAY BOTTLE NS SCH ×3 (02:51→20:38)
[2017-03-12] MEDS: Apixaban 5 MG TABLET PO SCH ×3 (02:51→20:37)
[2017-03-12] MEDS: Nystatin POWDER 30 GM BOTTLE TP SCH ×3 (02:52→20:39)
[2017-03-12] MEDS: 0.9 % Sodium Chloride 1,000 ML IVC SCH ×3 (02:52→16:24)
[2017-03-12] MEDS ORDERED: Venlafaxine XR (24 HR) 75 MG CAP.ER.24H PO SCH (09:00)
--- NOTE | 2017-03-12 09:10 | Internal Med Progress Note ---
<Denny Lowe - Last Filed: 03/12/17 09:07> Date of Encounter: 03/12/17 Time of Encounter: 09:07 - Assessment and plan (1) Hypovolemic shock Current Visit: Yes Status: Acute Assessment and plan: Patient presented with initial blood pressure 51/32. Patient also had taken blood pressure medications including metoprolol and spironolactone. Patient has received 3000 mL's normal saline with improvement of blood pressure to currently 93/71. MAP: 78. Patient has IJ and right neck. -Continue to monitor blood pressures - continue IV fluids and monitor for other sources. - Continue normal saline at a rate of 100 mL's per hour - Echocardiogram - Continue cardiac monitoring - Continue to hold BP medications - Flu swab (2) Ljsvw-fy-qjtbeun kidney injury Current Visit: Yes Status: Acute Assessment and plan: History of CKD stage III, baseline GFR in the upper 50s. Current GFR 29, creatinine 1.77. Likely secondary to hypovolemic shock. We will repeat renal function this morning. Plan: - Strict intake and output monitoring - Continue IV rehydration - Continue avoid nephrotoxic medications and renally dose antibiotics. Qualifiers: Acute renal failure type: unspecified Chronic kidney disease stage: unspecified stage Qualified Code(s): N17.9 - Acute kidney failure, unspecified ; N18.9 - Chronic kidney disease, unspecified; N18.9 - Chronic kidney disease, unspecified (3) History of DVT (deep vein thrombosis) Current Visit: Yes Status: Acute Assessment and plan: Patient has a history of right lower extremity DVT. - Continue Eliquis (4) GERD (gastroesophageal reflux disease) Current Visit: Yes Status: Acute Assessment and plan: Symptoms stable. Continue omeprazole 20 mg by mouth daily Qualifiers: Esophagitis presence: esophagitis presence not specified Qualified Code(s) : K21.9 - Gastro-esophageal reflux disease without esophagitis (5) History of CHF (congestive heart failure) Current Visit: Yes Status: Acute Assessment and plan: Echocardiogram from February 2016 demonstrates normal left ventricular systolic function with an LVEF of 6065%. Normal right ventricular structure and function. Mild asymmetric left ventricular septal hypertrophy. - Patient 100% ventricular paced. -Continue to hold beta raza, spironolactone - Hold simvastatin with recent hypovolemic shock for potential hepato- insufficiency - Echocardiogram repeated today. - Continue cardiac monitoring (6) Elevated troponin Current Visit: No Status: Resolved Assessment and plan: Patient has elevated troponins which are currently trending down. Troponin 0.04 , 0.47, 0.35. Elevation likely secondary to hypovolemic shock. Patient's blood pressure is improving. No current signs of active infection to meet sepsis criteria. Plan: - Repeat EKG. - Continue to monitor symptoms (7) Multiple sclerosis Current Visit: No Status: Chronic Assessment and plan: Patient is a history of MS diagnosed in 1980s. Continue current management. Autonomic dysfunction may be continuing to poor response to hypovolemic shock. (8) DVT prophylaxis Current Visit: Yes Status: Acute Assessment and plan: Subcutaneous heparin every 8 hours - Subjective Interval history: Mrs. Roberts 66-year-old female seen and evaluated patient bedside this morning. Patient is tired but answers questions appropriately on examination. She denies any pains, discomforts only feeling of tiredness and nasal congestion. She states at home that she had chills but denies any fevers, diaphoresis, weight loss. She did have nausea but denies vomiting or diarrhea. She did receive a flu shot yesterday. She denies any other discomforts at this time. She did take her blood pressure medications yesterday. - Constitutional Vitals: Temp Pulse Resp BP Pulse Ox 98.2 F 65 14 77/51 95 03/12/17 08:28 03/12/17 08:00 03/12/17 08:00 03/12/17 08:00 03/12/17 08:00 General appearance: Present: A&O X 3, pleasant, obese, answers questions appropriately Exam: General: Patient alert, awake, oriented 3, interactive, in no acute distress HEENT: Normocephalic, atraumatic, pupils equal reactive to light, bilateral swollen turbinates and erythematous mucosa, oral mucosa moist, neck supple trachea midline no palpable lymphadenopathy, no thyromegaly. Chest: Symmetric bilateral correlating with respiratory effort, effort nonlabored. Cardiac: Regular rate and rhythm, positive S1 and S2. no bruits appreciated bilateral carotids, Radial pulses 2+ bilateral, posterior tibial and dorsal pedal pulses 2+ bilateral. Respiratory: Clear to auscultation all lung frias Abdomen: Soft, nontender, positive bowel sounds, no palpable masses appreciated on examination Extremities: Symmetric bilateral, right hand demonstrates erythema and edema more so around the joints. Left hand has mild edema but right hand greater than left. moving all 4 extremities spontaneously. Neurologic: No focal deficits appreciated on examination. Face symmetric, muscle strength symmetric bilateral upper and lower extremities. Internal Medicine: Result - Labs CBC & Chem 7: 03/11/17 18:09 03/11/17 18:03 Labs: Cardiac Enzymes 03/12/17 03/12/17 Range/Units 02:45 08:24 Troponin I 0.47 H* 0.35 H* (0-0.03) ng/mL - ABG Interpretation ABG results: PT/INR, D-dimer D-Dimer 358 ng/mLFEU (0-500) 03/11/17 18:09 Consult Discharge Plan - Plan Referrals: Addy Fraire MD [Primary Care Provider] - <Serjio Ferguson - Last Filed: 03/12/17 15:57> Date of Encounter: 03/12/17 - Assessment and plan (1) Hypotension Current Visit: No Status: Resolved Qualifiers: Hypotension type: orthostatic hypotension Qualified Code(s): I95.1 - Orthostatic hypotension (2) Hypovolemic shock Current Visit: Yes Status: Acute (3) PAF (paroxysmal atrial fibrillation) Current Visit: No Status: Chronic (4) Multiple sclerosis Current Visit: No Status: Chronic (5) CAD (coronary artery disease) Current Visit: No Status: Chronic Qualifiers: Coronary Disease-Associated Artery/Lesion type: [place] artery [place] vs. transplanted heart: [place] heart Associated angina: without angina Qualified Code(s): I25.10 - Atherosclerotic heart disease of [place] coronary artery without angina pectoris (6) GERD (gastroesophageal reflux disease) Current Visit: Yes Status: Acute Qualifiers: Esophagitis presence: esophagitis presence not specified Qualified Code(s) : K21.9 - Gastro-esophageal reflux disease without esophagitis (7) Chronic diastolic (congestive) heart failure Current Visit: Yes Status: Chronic - Constitutional Vitals: Temp Pulse Resp BP Pulse Ox 98.6 F 65 16 100/54 100 03/12/17 12:10 03/12/17 14:00 03/12/17 14:00 03/12/17 14:00 03/12/17 14:00 Internal Medicine: Result - Labs CBC & Chem 7: 03/12/17 10:31 03/12/17 08:24 Labs: Short CBC 03/12/17 Range/Units 10:31 WBC 3.4 L (4.3-11.1) K/mcL Hgb 8.9 L (11.5-15.4) g/dL Hct 29.6 L (35.3-44.9) % Plt Count 130 L (140-400) K/mcL Neutrophils # 1.9 (1.6-8.9) K/mcL BMP 03/12/17 08:24 Sodium 142 Potassium 4.4 Chloride 112 H Carbon Dioxide 23 BUN 26 H Creatinine 1.12 H Glucose 86 Calcium 8.7 Cardiac Enzymes 03/12/17 03/12/17 Range/Units 02:45 08:24 Troponin I 0.47 H* 0.35 H* (0-0.03) ng/mL - ABG Interpretation ABG results: PT/INR, D-dimer D-Dimer 358 ng/mLFEU (0-500) 03/11/17 18:09 - Impressions Impressions Hand X-Ray 03/12/17 09:22 IMPRESSION: Questionable mild soft tissue edema about the wrist. No acute finding in the right hand. D/ / Marty Mcneil MD / Marty Mcneil MD Interpreting Provider: Marty Mcneil MD Echocardiogram 03/12/17 23:42 Impressions: LVEF 60-65%. Moderate left ventricular diastolic dysfunction. Asymmetric basal septal hypertrophy. No LVOT obstruction. Normal right ventricular structure and function. Mild tricuspid regurgitation. Mild pulmonary hypertension. Left Ventricular Wall Motion: Rest Echo Findings The mid inferior lateral and basal inferior lateral narayanan were not visualized. All other wall segments showed normal motion. Findings: Study Quality * Technically adequate exam. ECG Findings * Normal sinus rhythm. Left Ventricle * Moderate left ventricular diastolic dysfunction. * LVEF 60-65%. * Asymmetric basal septal hypertrophy. No LVOTO. Right Ventricle * Normal right ventricular structure and function. Left Atrium * Moderately dilated left atrium. Right Atrium * Normal right atrial size. Aortic Valve * No aortic regurgitation. * Trileaflet aortic valve. * No aortic stenosis. Mitral Valve * Normal mitral valve structure. * No mitral stenosis. * Trace mitral regurgitation. Tricuspid Valve * Tricuspid valve not well visualized. * Mild tricuspid regurgitation. * Estimated RA pressure is 8 mmHg. * Estimated RVSP is 39 mmHg. * Mild pulmonary hypertension. Pulmonic Valve * Pulmonic valve is not well visualized. * No pulmonic stenosis. * No pulmonic regurgitation. Pulmonary Artery * Pulmonary artery not well visualized. Aorta * Normally sized aortic root. Pericardium * There is no pericardial effusion present. Interatrial Septum * Interatrial septum not well evaluated. IVC * The IVC is not dilated. * < 50% respiratory change. Device lead * A device lead was visualized in the right atrium and right ventricle. - Attending Attestation I examined this patient and my medical decision-making was reviewed with the Resident Physician on 03/12/17. I agree with the documented findings, disposition and treatment plan as described except to the extent set forth below. Ms Roberts is currently admitted for acute hypovolemic shock. She has hx of MS. Her BP has improved some during the day with fluid resuscitation. Her R wrist/hand is swollen. She remains high risk due to potential for worsening blood pressure and clinical status. Ms Roberts feels a little better. Her BP was still low this AM and has been slowly improving. Her R hand is swollen and painful. No fever or chills. No diarrhea, chest pain or other symptoms. Exam Alert. Comfortable. Mucus membranes dry Heart reg No wheeze Abd soft R hand/wrist with some edema. Warm. Mild erythema. BP improving slowly with IV fluids. I/P 1. Hypovolemic shock 2. R hand pain 3. MS Further diagnoses and plan as above.
[2017-03-12 10:29] LABS: Calcium 8.7 mg/dL (8.6-10.8); Potassium 4.4 mEq/L (3.5-4.5)
[2017-03-12 10:49] LABS: Basophils % 0.6 %; Eosinophils # 0.1 K/mcL (0.0-0.6); Eosinophils % 1.5 %; Hematocrit 29.6 % (35.3-44.9); Hemoglobin 8.9 g/dL (11.5-15.4); Immature Granulocytes % 0.6 % (0-4); Lymphocytes # 1.1 K/mcL (0.6-4.6); Lymphocytes % 31.3 %; Mean Corpuscular HGB Conc 30.1 g/dL (31.6-35.5); Mean Corpuscular Hemoglobin 28.3 pg (28.0-33.3); Mean Corpuscular Volume 94.3 fL (83.0-100.0); Monocytes # 0.4 K/mcL (0.0-1.3); Monocytes % 11.1 %; Neutrophils # 1.9 K/mcL (1.6-8.9); Nucleated Red Blood Cells 0.6 /100 WBC (0); Platelet Count 130 K/mcL (140-400); Red Blood Count 3.14 M/mcL (3.82-4.97); Segmented Neutrophils % 54.9 %
[2017-03-12] MEDS ORDERED: *HR* Heparin 5,000 UNIT/ML VIAL SQ SCH (14:00)
--- NOTE | 2017-03-12 17:09 | Electrocardiograph Report ---
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
--- NOTE | 2017-03-12 17:16 | Electrocardiograph Report ---
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
[2017-03-12] MEDS: *HR* OxyCODONE/APAP 5/325 TABLET PO PRN (20:37)
[2017-03-13] MEDS: 0.9 % Sodium Chloride 1,000 ML IVC SCH ×3 (01:06→16:03)
[2017-03-13 06:33] LABS: Basophils % 0.6 %; Eosinophils # 0.1 K/mcL (0.0-0.6); Eosinophils % 1.7 %; Hematocrit 29.5 % (35.3-44.9); Immature Granulocytes % 0.3 % (0-4); Lymphocytes # 1.1 K/mcL (0.6-4.6); Lymphocytes % 29.9 %; Mean Corpuscular HGB Conc 30.5 g/dL (31.6-35.5); Mean Corpuscular Volume 95.2 fL (83.0-100.0); Monocytes # 0.4 K/mcL (0.0-1.3); Monocytes % 10.5 %; Neutrophils # 2.1 K/mcL (1.6-8.9); Platelet Count 121 K/mcL (140-400); Red Cell Distribution Width 16.2 % (11.5-14.5)
[2017-03-13] MEDS: Venlafaxine XR (24 HR) 75 MG CAP.ER.24H PO SCH (08:05)
[2017-03-13] MEDS: Apixaban 5 MG TABLET PO SCH ×2 (08:05→20:58)
[2017-03-13] MEDS: Fluticasone Propionate Nasal 50 MCG/SPRAY BOTTLE NS SCH ×2 (08:06→21:00)
[2017-03-13] MEDS: Nystatin POWDER 30 GM BOTTLE TP SCH ×2 (08:07→21:00)
[2017-03-13 08:35] LABS: Alanine Aminotransferase 9 Units/L (0-55); Albumin 2.7 g/dL (3.5-5.0); Albumin/Globulin Ratio 0.9 (1.1-2.2); Alkaline Phosphatase 85 Units/L (38-126); Aspartate Amino Transferase 17 Units/L (5-34); BUN/Creatinine Ratio 19 (6-26); Bilirubin,Total 0.4 mg/dL (0.2-1.2); Blood Urea Nitrogen 17 mg/dL (7-20); Calcium 8.5 mg/dL (8.6-10.8); Carbon Dioxide 22 mEq/L (19-29); Chloride 113 mEq/L (98-109); Glucose 98 mg/dL (70-99); Osmolality,Calculated 294 (280-300); Potassium 4.4 mEq/L (3.5-4.5); Sodium 141 mEq/L (136-145); Total Protein 5.7 g/dL (6.0-8.3); eGFR For African Americans > 60 (> 60); eGFR For Non-African Americans > 60 (> 60)
--- NOTE | 2017-03-13 11:48 | Internal Med Progress Note ---
<Denny Lowe - Last Filed: 03/13/17 14:44> Date of Encounter: 03/13/17 Time of Encounter: 11:48 - Assessment and plan (1) Hypovolemic shock Current Visit: Yes Status: Acute Assessment and plan: Stable, blood pressure has remained appropriate without hypotensive episodes or blood pressure support. She continues to be off her blood pressure medications at this time. No need to initiate BP medications. -Patient presented with initial blood pressure 51/32. Patient also had taken blood pressure medications including metoprolol and spironolactone. Patient has received 3000 mL's normal saline with improvement of blood pressure to currently 93/71. MAP: 78. Patient has IJ and right neck. -Flu swab negative - Echocardiogram LVEF of 65% no significant changes compared to previous. - Hypovolemic shock likely cause of patient's elevated troponins. Troponin level is trending down after correction of blood pressure. Patient denies any chest pain, chest pressure. Plan: - Continue cardiac monitoring - Continue to hold BP medications - Flu swab (2) Wjrwp-ep-aelbnwj kidney injury Current Visit: Yes Status: Acute Assessment and plan: History of CKD stage III, baseline GFR in the upper 50s. Acute kidney injury resolved. Plan: - Strict intake and output monitoring - Continue avoid nephrotoxic medications and renally dose antibiotics. Qualifiers: Acute renal failure type: unspecified Chronic kidney disease stage: unspecified stage Qualified Code(s): N17.9 - Acute kidney failure, unspecified ; N18.9 - Chronic kidney disease, unspecified; N18.9 - Chronic kidney disease, unspecified (3) History of DVT (deep vein thrombosis) Current Visit: Yes Status: Acute Assessment and plan: Patient has a history of right lower extremity DVT. - Continue Eliquis (4) GERD (gastroesophageal reflux disease) Current Visit: Yes Status: Acute Assessment and plan: Symptoms stable. Continue omeprazole 20 mg by mouth daily Qualifiers: Esophagitis presence: esophagitis presence not specified Qualified Code(s) : K21.9 - Gastro-esophageal reflux disease without esophagitis (5) History of CHF (congestive heart failure) Current Visit: Yes Status: Acute Assessment and plan: Echocardiogram from February 2016 demonstrates normal left ventricular systolic function with an LVEF of 6065%. Normal right ventricular structure and function. Mild asymmetric left ventricular septal hypertrophy. - Patient 100% ventricular paced. -Continue to hold beta raza, spironolactone - Restart simvastatin. - Continue cardiac monitoring (6) Multiple sclerosis Current Visit: No Status: Chronic Assessment and plan: Patient is a history of MS diagnosed in 1980s. Continue current management. Autonomic dysfunction may be continuing to poor response to hypovolemic shock. (7) DVT prophylaxis Current Visit: Yes Status: Acute Assessment and plan: Subcutaneous heparin every 8 hours - Subjective Interval history: Mrs. Roberts 66-year-old female seen and evaluated patient bedside this morning. She states that she is feeling much better since admission. She is still continuously having shakes and her extremities but says this is her baseline with her MS. She feels that the swelling in bilateral hands has improved greatly but she still has some trace edema denies any pain in any of her joints. Denies any fevers, chills, diaphoresis, chest pain, palpitations, shortness of breath abdominal pain nausea or vomiting. - Constitutional Vitals: Temp Pulse Resp BP Pulse Ox 98.5 F 68 18 116/68 95 03/13/17 09:28 03/13/17 09:28 03/13/17 09:28 03/13/17 09:28 03/13/17 09:28 General appearance: Present: A&O X 3, pleasant, obese, answers questions appropriately Exam: General: Patient alert, awake, oriented 3, interactive, in no acute distress HEENT: Normocephalic, atraumatic, pupils equal reactive to light, bilateral swollen turbinates and erythematous mucosa, oral mucosa moist, neck supple trachea midline no palpable lymphadenopathy, no thyromegaly. Chest: Symmetric bilateral correlating with respiratory effort, effort nonlabored. Cardiac: Regular rate and rhythm, positive S1 and S2. no bruits appreciated bilateral carotids, Radial pulses 2+ bilateral, posterior tibial and dorsal pedal pulses 2+ bilateral. Respiratory: Clear to auscultation all lung frias Abdomen: Soft, nontender, positive bowel sounds, no palpable masses appreciated on examination Extremities: Symmetric bilateral, Trace edema symmetric in bilateral hands. moving all 4 extremities spontaneously. Neurologic: No focal deficits appreciated on examination. Face symmetric, muscle strength symmetric bilateral upper and lower extremities. Internal Medicine: Result - Labs CBC & Chem 7: 03/13/17 05:45 03/13/17 08:10 Labs: Short CBC 12/16/17 Range/Units 05:45 WBC 3.6 L (4.3-11.1) K/mcL Hgb 9.0 L (11.5-15.4) g/dL Hct 29.5 L (35.3-44.9) % Plt Count 121 L (140-400) K/mcL Neutrophils # 2.1 (1.6-8.9) K/mcL BMP 03/13/17 08:10 Sodium 141 Potassium 4.4 Chloride 113 H Carbon Dioxide 22 BUN 17 Creatinine 0.91 Glucose 98 Calcium 8.5 L Liver Function 03/13/17 Range/Units 08:10 Total Bilirubin 0.4 (0.2-1.2) mg/dL AST 17 (5-34) Units/L ALT 9 (0-55) Units/L Alkaline Phosphatase 85 (38-126) Units/L Albumin 2.7 L (3.5-5.0) g/dL - ABG Interpretation ABG results: PT/INR, D-dimer D-Dimer 358 ng/mLFEU (0-500) 03/11/17 18:09 - Impressions Impressions Hand X-Ray 03/12/17 09:22 IMPRESSION: Questionable mild soft tissue edema about the wrist. No acute finding in the right hand. D/ / Marty Mcneil MD / Marty Mcneil MD Interpreting Provider: Marty Mcneil MD Echocardiogram 03/12/17 23:42 Impressions: LVEF 60-65%. Moderate left ventricular diastolic dysfunction. Asymmetric basal septal hypertrophy. No LVOT obstruction. Normal right ventricular structure and function. Mild tricuspid regurgitation. Mild pulmonary hypertension. Left Ventricular Wall Motion: Rest Echo Findings The mid inferior lateral and basal inferior lateral narayanan were not visualized. All other wall segments showed normal motion. Findings: Study Quality * Technically adequate exam. ECG Findings * Normal sinus rhythm. Left Ventricle * Moderate left ventricular diastolic dysfunction. * LVEF 60-65%. * Asymmetric basal septal hypertrophy. No LVOTO. Right Ventricle * Normal right ventricular structure and function. Left Atrium * Moderately dilated left atrium. Right Atrium * Normal right atrial size. Aortic Valve * No aortic regurgitation. * Trileaflet aortic valve. * No aortic stenosis. Mitral Valve * Normal mitral valve structure. * No mitral stenosis. * Trace mitral regurgitation. Tricuspid Valve * Tricuspid valve not well visualized. * Mild tricuspid regurgitation. * Estimated RA pressure is 8 mmHg. * Estimated RVSP is 39 mmHg. * Mild pulmonary hypertension. Pulmonic Valve * Pulmonic valve is not well visualized. * No pulmonic stenosis. * No pulmonic regurgitation. Pulmonary Artery * Pulmonary artery not well visualized. Aorta * Normally sized aortic root. Pericardium * There is no pericardial effusion present. Interatrial Septum * Interatrial septum not well evaluated. IVC * The IVC is not dilated. * < 50% respiratory change. Device lead * A device lead was visualized in the right atrium and right ventricle. Consult Discharge Plan - Plan Referrals: Addy Fraire MD [Primary Care Provider] - <Serjio Ferguson - Last Filed: 03/13/17 18:09> Date of Encounter: 03/13/17 - Assessment and plan (1) Hypotension Current Visit: No Status: Resolved Qualifiers: Hypotension type: orthostatic hypotension Qualified Code(s): I95.1 - Orthostatic hypotension (2) Hypovolemic shock Current Visit: Yes Status: Resolved (3) PAF (paroxysmal atrial fibrillation) Current Visit: No Status: Chronic (4) Multiple sclerosis Current Visit: No Status: Chronic (5) CAD (coronary artery disease) Current Visit: No Status: Chronic Qualifiers: Coronary Disease-Associated Artery/Lesion type: [place] artery [place] vs. transplanted heart: [place] heart Associated angina: without angina Qualified Code(s): I25.10 - Atherosclerotic heart disease of [place] coronary artery without angina pectoris (6) GERD (gastroesophageal reflux disease) Current Visit: Yes Status: Acute Qualifiers: Esophagitis presence: esophagitis presence not specified Qualified Code(s) : K21.9 - Gastro-esophageal reflux disease without esophagitis (7) Chronic diastolic (congestive) heart failure Current Visit: Yes Status: Chronic (8) COPD (chronic obstructive pulmonary disease) Current Visit: Yes Status: Chronic Qualifiers: COPD type: chronic bronchitis Chronic bronchitis type: simple Qualified Code(s): J41.0 - Simple chronic bronchitis (9) Gout Current Visit: Yes Status: Acute Qualifiers: Gout site: multiple sites Gout etiology: idiopathic Chronicity: chronic Presence of tophus: without tophus Qualified Code(s): M1A.09X0 - Idiopathic chronic gout, multiple sites, without tophus (tophi) - Constitutional Vitals: Temp Pulse Resp BP Pulse Ox 98.6 F 65 16 103/68 97 03/13/17 15:34 03/13/17 15:34 03/13/17 15:34 03/13/17 15:34 03/13/17 15:34 Internal Medicine: Result - Labs CBC & Chem 7: 03/13/17 05:45 03/13/17 08:10 Labs: Short CBC 03/13/17 Range/Units 05:45 WBC 3.6 L (4.3-11.1) K/mcL Hgb 9.0 L (11.5-15.4) g/dL Hct 29.5 L (35.3-44.9) % Plt Count 121 L (140-400) K/mcL Neutrophils # 2.1 (1.6-8.9) K/mcL BMP 03/13/17 08:10 Sodium 141 Potassium 4.4 Chloride 113 H Carbon Dioxide 22 BUN 17 Creatinine 0.91 Glucose 98 Calcium 8.5 L Liver Function 03/13/17 Range/Units 08:10 Total Bilirubin 0.4 (0.2-1.2) mg/dL AST 17 (5-34) Units/L ALT 9 (0-55) Units/L Alkaline Phosphatase 85 (38-126) Units/L Albumin 2.7 L (3.5-5.0) g/dL - ABG Interpretation ABG results: PT/INR, D-dimer D-Dimer 358 ng/mLFEU (0-500) 03/11/17 18:09 - Attending Attestation I examined this patient and my medical decision-making was reviewed with the Resident Physician on 03/13/17. I agree with the documented findings, disposition and treatment plan as described except to the extent set forth below. Ms Roberts is currently admitted for hypovolemic shock. She remains moderate to high risk due to potential for worsening clinical status. Ms Roberts is doing OK. Her BP overall has been increasing. All BP meds remain on hold. No fever or chills. Hand seems better. Uric acid high. Exam Alert. Comfortable Mucus membranes dry Heart reg No wheeze No edema I/P 1. Hypovolemic shock 2. Hypotension 3. Gout Further diagnoses and plan as above.
[2017-03-13] MEDS: *HR* OxyCODONE/APAP 5/325 TABLET PO PRN ×2 (13:22→20:58)
[2017-03-14 03:44] LABS: Basophils % 0.6 %; Eosinophils # 0.1 K/mcL (0.0-0.6); Eosinophils % 1.8 %; Hematocrit 28.2 % (35.3-44.9); Hemoglobin 8.7 g/dL (11.5-15.4); Immature Granulocytes % 0.3 % (0-4); Lymphocytes # 1.1 K/mcL (0.6-4.6); Lymphocytes % 33.9 %; Mean Corpuscular HGB Conc 30.9 g/dL (31.6-35.5); Mean Corpuscular Hemoglobin 29.1 pg (28.0-33.3); Mean Corpuscular Volume 94.3 fL (83.0-100.0); Mean Platelet Volume 10.5 fL (9.4-12.4); Monocytes # 0.4 K/mcL (0.0-1.3); Monocytes % 10.4 %; Neutrophils # 1.8 K/mcL (1.6-8.9); Platelet Count 108 K/mcL (140-400); Red Blood Count 2.99 M/mcL (3.82-4.97); Red Cell Distribution Width 15.9 % (11.5-14.5)
[2017-03-14 03:56] LABS: Alanine Aminotransferase 10 Units/L (0-55); Albumin 2.7 g/dL (3.5-5.0); Albumin/Globulin Ratio 0.9 (1.1-2.2); Alkaline Phosphatase 81 Units/L (38-126); Aspartate Amino Transferase 17 Units/L (5-34); BUN/Creatinine Ratio 13 (6-26); Bilirubin,Total 0.4 mg/dL (0.2-1.2); Blood Urea Nitrogen 11 mg/dL (7-20); Calcium 8.8 mg/dL (8.6-10.8); Carbon Dioxide 22 mEq/L (19-29); Chloride 110 mEq/L (98-109); Globulin 3.1 g/dL (2.4-3.5); Glucose 84 mg/dL (70-99); Osmolality,Calculated 287 (280-300); Potassium 4.1 mEq/L (3.5-4.5); Sodium 139 mEq/L (136-145); Total Protein 5.8 g/dL (6.0-8.3); eGFR For African Americans > 60 (> 60); eGFR For Non-African Americans > 60 (> 60)
--- NOTE | 2017-03-14 08:40 | Discharge Summary ---
<Denny Lowe - Last Filed: 03/14/17 16:53> Date of Encounter: 03/14/17 Time of Encounter: 08:38 - Discharge Diagnosis (1) Hypovolemic shock Priority: Primary Status: Resolved (2) Kdeul-or-hmluusk kidney injury Priority: Secondary Status: Acute Qualifiers: Acute renal failure type: unspecified Chronic kidney disease stage: unspecified stage Qualified Code(s): N17.9 - Acute kidney failure, unspecified ; N18.9 - Chronic kidney disease, unspecified; N18.9 - Chronic kidney disease, unspecified (3) History of DVT (deep vein thrombosis) Priority: Secondary Status: Acute (4) GERD (gastroesophageal reflux disease) Priority: Secondary Status: Acute Qualifiers: Esophagitis presence: esophagitis presence not specified Qualified Code(s) : K21.9 - Gastro-esophageal reflux disease without esophagitis (5) History of CHF (congestive heart failure) Priority: Secondary Status: Acute (6) Multiple sclerosis Priority: Secondary Status: Chronic (7) DVT prophylaxis Priority: Secondary Status: Acute - Discharge Medications Home Medications: Albuterol Sulfate [Albuterol Inhaler] 2 puff IH Q4H PRN 11/04/15 [History] Fluticasone Propionate Nasal [Flonase] 2 spray NS BID 11/04/15 [History] Zolpidem [Ambien] 10 mg PO HS PRN 11/04/15 [History] Lansoprazole [Prevacid] 30 mg PO DAILY #30 capsule. 11/12/15 [Rx] Modafinil [Provigil] 200 mg PO BID #60 tablet 11/12/15 [Rx] Pramipexole [Mirapex] 0.5 mg PO DAILY #30 tablet 11/12/15 [Rx] Simvastatin [Zocor] 20 mg PO HS #30 tablet 11/12/15 [Rx] Apixaban [Eliquis] 5 mg PO BID 03/11/17 [History] Nitroglycerin [Nitrostat] 0.4 mg SL Q5-6MIN PRN 03/11/17 [History] Nystatin POWDER [Nystop] 1 appl TP BID 03/11/17 [History] Oxycodone HCl/Acetaminophen [Percocet 7.5-325 mg Tablet] 1 tab PO TID PRN MDD 3 03/11/17 [History] Tizanidine HCl [Zanaflex] 4 mg PO Q8H PRN 03/11/17 [History] Venlafaxine HCl [Venlafaxine HCl ER] 75 mg PO QDPC 03/11/17 [History] Allergies/Adverse Reactions: 3 Allergy/AdvReac Type Severity Reaction Status Date / Time mannitol [From Reclast] Allergy Hives Verified 03/12/17 09:04 zoledronic acid Allergy Hives Verified 03/12/17 09:04 [From Reclast] adhesive tape AdvReac Rash Verified 03/12/17 09:04 aspirin AdvReac Nausea Verified 03/12/17 09:04 cephalexin [From Keflex] AdvReac STOMACH Verified 03/12/17 09:04 UPSET codeine AdvReac Abdominal Verified 03/12/17 09:04 Pain Iodinated Contrast- Oral and AdvReac Hives AND Verified 03/12/17 09:04 IV Dye BREATHING ISSUES Procedures/tests Complete & Pending: Procedures Performed prior 72 hours Category Date Time Status ECG 12 lead ECG [ECG] Routine Y 03/11/17 21:44 Completed EV echocardiogram Routine Y 03/12/17 23:42 Completed EV venous imaging UE RT Routine Y 03/12/17 09:06 Completed Date of admission: 03/11/17 20:44 Primary care physician: Addy Fraire MD Discharging clinician: Denny Lowe Anticipated date of discharge: 03/14/17 - Patient Status Disposition: Home, Self-Care Condition: Serious Functional capacity at discharge: independent ambulation Overall status at discharge: patient is progressing back to baseline - Discharge Instructions Follow Up With: Addy Fraire MD [Primary Care Provider] - Low Judd CNP [Advanced Practice Nurse] - Additional Instructions: 1. Follow-up with your primary care provider in the next 3-5 days 2. Take all prescriptions as prescribed, any concerns or questions contact her primary care provider. 3. Follow up with cardiology for Stress test and evaluation. - Diet and Activity Activity: increase activity as tolerated Diet: advance to your usual diet Interval History: Ms. Roberts is a 66 year old female with a PMHx of MS, Diastolic CHF, COPD, HTN , Tachy elham syndrome s/p Pacemaker and IL with a PSHx of R nephrectomy, colectomy, pt presented to ER with generalized weakness and blurry vision she was found to have a blood pressure of 50/32 and received emergent intervention with IV fluids which resulted improvement in her blood pressure. She happened to have severe hypotension with out any signs of infection. Nasal swab was negative for influenza. Imaging studies including chest x-ray, head CT, cervical spine CT WITHOUT significant findings. She received intrajugular line. She is admitted to the ICU for continued care and potential further interventions. While in the ICU she maintained blood pressures around 80-90 systolically. All blood pressure medications were held. She was evaluated following morning found that she had bilateral hand edema with nonpainful joints. Laboratory results demonstrated a uric acid of 7, patient admits to history of gout but no current joint pain or discomfort. Right upper extremity venous ultrasound negative for DVT. Her blood pressures remain stable for over 24 hours and she was transferred to the general medical floor for continued care and management. She continued therapy and underwent echocardiogram that demonstrated left ventricular ejection fraction 6065%, moderate left ventricular diastolic dysfunction, asymmetric basal septal hypertrophy, normal right ventricular structure and function. Mild tricuspid regurgitation. Mild pulmonary hypertension. Her blood pressures remained on the lower end of normal , no findings of infectious cause. On 03/14/2017 she was seen and evaluated denies any chest pain throughout her inpatient stay, EKGs without any significant findings, feels back to her normal self. She is seen and evaluated and underwent orthostatic blood pressures which were appropriate on 03/14/2017 and deemed stable for discharge home with follow-up with her primary care provider and cardiology. Recommend cardiology follow-up as upon initial evaluation she did have a slight elevation in her troponins, history of cardiac disease and was told prior that she was going to be scheduled for a outpatient stress test. The patient agreed with this plan. Hospital course: Ms. Roberts is a 66 year old female - Time Spent with Patient Total time spent providing and/or coordinating discharge services: - Constitutional Vitals: Temp Pulse Resp BP Pulse Ox 98.4 F 93 16 104/65 98 03/14/17 06:49 03/14/17 06:49 03/14/17 06:49 03/14/17 06:49 03/14/17 06:49 General appearance: Present: A&O X 3, pleasant, obese, answers questions appropriately - Head Head exam: Present: atraumatic, normocephalic - Eye Eye exam: Present: PERRL, conjuntiva pink, sclera anicteric Pupils: Present: PERRL - Neck Neck exam general surgery: Present: supple, trachea midline. Absent: lymphadenopathy - Respiratory Respiratory exam: Present: CTAB. Absent: accessory muscle use, rales, rhonchi, wheezes - Cardiovascular Cardiovascular exam: Present: RRR, +S1, +S2. Absent: diastolic murmur, gallop, rubs, systolic murmur - GI/Abdominal GI/Abdominal exam: Present: normal bowel sounds, soft, no peritoneal signs. Absent: distended, tenderness - Extremities Exam Extremities exam: Present: warm, radial pulses palpable and symmetrical. Absent : calf tenderness, cyanotic, pedal edema - Neurological Exam Neurological exam: Present: CN II-XII intact, oriented X3, no focal deficits. Absent: pronater drift, facial droop, speech deficit - Skin Skin exam: Present: dry, intact <Serjio Ferguson - Last Filed: 03/14/17 17:43> Date of Encounter: 03/14/17 - Discharge Diagnosis (1) Hypotension Priority: Primary Status: Resolved Qualifiers: Hypotension type: orthostatic hypotension Qualified Code(s): I95.1 - Orthostatic hypotension (2) Hypovolemic shock Status: Resolved (3) PAF (paroxysmal atrial fibrillation) Priority: Secondary Status: Chronic (4) Multiple sclerosis Status: Chronic (5) CAD (coronary artery disease) Priority: Secondary Status: Chronic Qualifiers: Coronary Disease-Associated Artery/Lesion type: [place] artery Crow vs. transplanted heart: atka heart Associated angina: without angina Qualified Code(s): I25.10 - Atherosclerotic heart disease of [place] coronary artery without angina pectoris (6) GERD (gastroesophageal reflux disease) Status: Acute Qualifiers: Esophagitis presence: esophagitis presence not specified Qualified Code(s) : K21.9 - Gastro-esophageal reflux disease without esophagitis (7) Chronic diastolic (congestive) heart failure Priority: Secondary Status: Chronic (8) COPD (chronic obstructive pulmonary disease) Priority: Secondary Status: Chronic Qualifiers: COPD type: chronic bronchitis Chronic bronchitis type: simple Qualified Code(s): J41.0 - Simple chronic bronchitis (9) Gout Priority: Secondary Status: Chronic Qualifiers: Gout site: multiple sites Gout etiology: idiopathic Chronicity: chronic Presence of tophus: without tophus Qualified Code(s): M1A.09X0 - Idiopathic chronic gout, multiple sites, without tophus (tophi) Procedures/tests Complete & Pending: Procedures Performed prior 72 hours Category Date Time Status ECG 12 lead ECG [ECG] Routine Y 03/11/17 21:44 Completed EV echocardiogram Routine Y 03/12/17 23:42 Completed EV venous imaging UE RT Routine Y 03/12/17 09:06 Completed Date of admission: 03/11/17 20:44 Primary care physician: Addy Fraire MD Hospital course: Ms. Roberts is a 66 year old female - Time Spent with Patient Total time spent providing and/or coordinating discharge services: 37min - Constitutional Vitals: Temp Pulse Resp BP Pulse Ox 98.4 F 93 16 117/67 98 03/14/17 06:49 03/14/17 06:49 03/14/17 06:49 03/14/17 09:44 03/14/17 06:49 - Attending Attestation I examined this patient and my medical decision-making was reviewed with the Resident Physician on 03/14/17. I agree with the documented findings, disposition and treatment plan as described except to the extent set forth below. Ms. Roberts has been admitted for hypovolemic shock. She has improved with fluids and holding meds. She is now afebrile with stable vitals and is ready for discharge home. Exam Alert. Comfortable Mucus membranes moist Heart reg No wheeze Plan D/C home Follow up with PCP. Hold BP meds till seen in office.
[2017-03-14 09:45] VITALS: BP 117/67
[2017-03-14] MEDS: Apixaban 5 MG TABLET PO SCH (13:37)
[2017-03-14] MEDS: Venlafaxine XR (24 HR) 75 MG CAP.ER.24H PO SCH (13:39)
[2017-03-14] MEDS: Fluticasone Propionate Nasal 50 MCG/SPRAY BOTTLE NS SCH (13:39)
[2017-03-14] MEDS: Nystatin POWDER 30 GM BOTTLE TP SCH (13:39)
== END 2017-03-14 15:00 | disposition home or self-care (01) | DRG 314 ==
LOC: EMEROO 16:59 → SUATTDRO 20:44 → ICNU 20:44 → 2ANU 03-13 09:24
PROVIDERS: ADMIT Family Medicine; ATTEND Internal Medicine

== ENCOUNTER 2017-03-17 14:21 | Inpatient (IN) ==
[2017-03-17] MEDS ORDERED: methylPREDNISolone 125 MG/2 ML VIAL IVP ONE (14:43)
[2017-03-17] MEDS ORDERED: Ipratropium/Albuterol Neb 3 ML IH ONE (14:43)
--- NOTE | 2017-03-17 14:43 | Emergency Department Note ---
Disposition Clinical Impression: Elevated troponin I level, Atrial fibrillation with RVR, Tachy-elham syndrome, Hypoxia Disposition: Admitted As Inpatient Condition: Fair Referrals: Addy Fraire MD [Primary Care Provider] - Forms: ED Satisfaction Letter Time of Disposition: 18:46 SOB HPI - General Chief Complaint: ED Shortness of Breath/Dyspnea Stated Complaint: sandra Time Seen by Provider: 03/17/17 14:42 Source: patient, EMS Limitations: no limitations Nursing Notes Reviewed: Yes Vital Signs Reviewed: Yes - History of Present Illness 66-year-old female history of atrial fibrillation on Eliquis tachybradycardia syndrome, pacemaker, recent admission for hypovolemic shock, presents with shortness of breath from home. Patient was just doing minimal exertion and she felt very short of breath. She stated that she was having trouble catching her breath, they placed oxygen on her and the ambulance and she felt better. She felt like her heart was racing the 130s. She normally is rate controlled but she does not have medication for rate and rhythm, she is on Eliquis anticoagulated for paroxysmal A. fib but normally she is paced. Patient reports mild chest discomfort and pressure, she has been having these symptoms for the last few days ever since she left the hospital on the . Patient reports that she is having worsening conversational dyspnea, and paroxysmal nocturnal dyspnea Pt Subjective Complaint: shortness of breath Onset (ago): day(s) Context: occurred during exertion Severity: moderate Consistency/Duration: intermittent Improves with: oxygen Worsens with: lying flat, exertion, coughing Known history of: asthma, congestive heart failure Associated symptoms: Reports: chest pain, wheezing. Denies: pain with inspiration, fever, cough, sputum production, orthopnea, polydipsia, parasthesias, hemoptysis Treatment prior to arrival: oxygen Cough present: Yes Cough Description: Voluntary Cough Frequency: Intermittent - Related Data Home Medications Medication Instructions Recorded Confirmed Albuterol Sulfate [Albuterol 2 puff IH Q4H PRN 11/04/15 03/17/17 Inhaler] Fluticasone Propionate Nasal 2 spray NS BID 11/04/15 03/17/17 [Flonase] Zolpidem [Ambien] 10 mg PO HS PRN 11/04/15 03/17/17 Apixaban [Eliquis] 5 mg PO BID 03/11/17 03/17/17 Nitroglycerin [Nitrostat] 0.4 mg SL Q5-6MIN PRN 03/11/17 03/17/17 Nystatin POWDER [Nystop] 1 appl TP BID 03/11/17 03/17/17 Oxycodone HCl/Acetaminophen 1 tab PO TID PRN MDD 3 03/11/17 03/17/17 [Percocet 7.5-325 mg Tablet] Acetaminophen [Tylenol] 325 mg PO Q6HR PRN 03/17/17 03/17/17 Metoprolol XL (24 HR) Succ [Toprol 50 mg PO DAILY 03/17/17 03/17/17 XL] Previous Rx's Medication Instructions Recorded Lansoprazole [Prevacid] 30 mg PO DAILY #30 capsule. 11/12/15 Modafinil [Provigil] 200 mg PO BID #60 tablet 11/12/15 Pramipexole [Mirapex] 0.5 mg PO DAILY #30 tablet 11/12/15 Simvastatin [Zocor] 20 mg PO HS #30 tablet 11/12/15 Allergies Allergy/AdvReac Type Severity Reaction Status Date / Time mannitol [From Reclast] Allergy Hives Verified 03/12/17 09:04 zoledronic acid Allergy Hives Verified 03/12/17 09:04 [From Reclast] adhesive tape AdvReac Rash Verified 03/12/17 09:04 aspirin AdvReac Nausea Verified 03/12/17 09:04 cephalexin [From Keflex] AdvReac STOMACH Verified 03/12/17 09:04 UPSET codeine AdvReac Abdominal Verified 03/12/17 09:04 Pain Iodinated Contrast- Oral and AdvReac Hives AND Verified 03/12/17 09:04 IV Dye BREATHING ISSUES All systems ED: reviewed and negative except as stated. Review of Systems: As Per HPI Constitutional: Denies: fever, chills Eyes: Denies: eye pain, eye discharge ENT ED: Denies: ear pain Cardiovascular: Reports: as per HPI, chest pain Respiratory: Reports: as per HPI, cough, dyspnea, wheezes. Denies: hemoptysis, sputum production Gastrointestinal: Denies: abdominal pain Genitourinary: Denies: urgency, dysuria Musculoskeletal: Denies: back pain Integumentary: Denies: rash, abrasion Past Medical History - Past Medical History Attestation: Yes The following information was validated with the patient. 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 Extremity: +2 bilateral radial and posterial tibial pulses, no pedal edema GI: normal inspection, Soft, NTND, no peritoneal signs, no palpable abdominal aortic aneurysm Back: normal inspection, no tenderness to palpation Neuro: A&O3, no gross motor or sensory deficits bilaterally MSK: normal inspection, bilateral UE and LE with normal ROM Skin: No rashes, skin warm, dry, intact - General Limitations: no limitations General appearance: alert, in no apparent distress Course Course Narrative: Mixed acute on chronic respiratory failure, not hypoxic at baseline normally does not need oxygen but she is hypoxic now, mixed CHF and COPD exacerbation in addition patient has some chest pain, and is having atrial fibrillation, she is already anti-coagulated, she was intermittently into paced rhythm and back into atrial fibrillation. We will try IV Lopressor, basic lab work and reassess. - Reevaluation(s) Reevaluation #1: I spoke with store shopper, will admit to the medicine service, her troponin was elevated at 0.19 no recommendation for heparin given that she is anticoagulated already, also patient will be placed on a Cardizem drip Reevaluation #2: Prior to going to floor Cardizem drip just arrived to the ER and the patient was back in a paced rhythm, at 74 without any respiratory distress, Cardizem was held at this time. - Consultations Consultation #1: Spoke with radha Arteaga for Cardizem drip, will see as inpatient. Time: 16:02 Vital Signs Temperature 98.2 F 03/17/17 14:23 Pulse Rate 65 03/17/17 14:23 Respiratory Rate 14 03/17/17 14:23 Blood Pressure 132/87 03/17/17 14:23 O2 Sat by Pulse Oximetry 99 03/17/17 14:23 Temperature 98.2 F 03/17/17 14:23 Pulse Rate 65 03/17/17 14:23 Respiratory Rate 20 03/17/17 15:18 Blood Pressure 132/87 03/17/17 14:23 O2 Sat by Pulse Oximetry 99 03/17/17 15:41 Oxygen Delivery Oxygen Delivery Nasal Cannula Shortness of Breath/Dyspnea - Differential Diagnosis Likely: acute exacerbation of chronic obstructive airways disease, congestive heart failure, pneumonia - Medical Records Medical records reviewed: Yes I reviewed the patient's medical records. - Lab Data Lab results reviewed: Yes I reviewed the patient's lab results. Result diagrams: 03/17/17 15:04 03/17/17 15:04 Lab Results 03/17/17 03/17/17 03/17/17 Range/Units 13:04 15:04 15:04 WBC 5.8 D (4.3-11.1) K/mcL RBC 3.44 L (3.82-4.97) M/mcL Hgb 10.1 L (11.5-15.4) g/dL Hct 32.0 L (35.3-44.9) % MCV 93.0 (83.0-100.0) fL MCH 29.4 (28.0-33.3) pg MCHC 31.6 (31.6-35.5) g/dL RDW 16.2 H (11.5-14.5) % Plt Count 156 (140-400) K/mcL MPV 10.7 (9.4-12.4) fL Immature Gran % 0.3 (0-4) % Seg Neutrophils % 72.1 % Lymphocytes % 17.0 % Monocytes % 8.7 % Eosinophils % 1.2 % Basophils % 0.7 % Neutrophils # 4.2 (1.6-8.9) K/mcL Lymphocytes # 1.0 (0.6-4.6) K/mcL Monocytes # 0.5 (0.0-1.3) K/mcL Eosinophils # 0.1 (0.0-0.6) K/mcL Basophils # 0.0 (0.0-0.2) K/mcL PT 14.7 H (9.4-12.1) Seconds INR 1.4 APTT 31.9 (26.0-36.0) Seconds Sodium 142 (136-145) mEq/L Potassium 3.6 (3.5-5.1) mEq/L Chloride 109 H (98-107) mEq/L Carbon Dioxide 25 (23-29) mEq/L BUN 12 (8-23) mg/dL Creatinine 1.00 (0.60-1.20) mg/dL Est GFR ( Amer) > 60 (> 60) Est GFR (Non-Af Amer) 55 L (> 60) BUN/Creatinine Ratio 12 (6-26) Glucose 95 (70-105) mg/dL POC Glucose (58-89) Calculated Osmolality 294 (280-300) Lactic Acid (0.5-2.2) mmol/L Calcium 9.3 (8.6-10.3) mg/dL Troponin I (< 0.04) ng/mL B-Natriuretic Peptide (Less than 100) pg/mL 03/17/17 03/17/17 03/17/17 Range/Units 15:04 15:04 15:04 WBC (4.3-11.1) K/mcL RBC (3.82-4.97) M/mcL Hgb (11.5-15.4) g/dL Hct (35.3-44.9) % MCV (83.0-100.0) fL MCH (28.0-33.3) pg MCHC (31.6-35.5) g/dL RDW (11.5-14.5) % Plt Count (140-400) K/mcL MPV (9.4-12.4) fL Immature Gran % (0-4) % Seg Neutrophils % % Lymphocytes % % Monocytes % % Eosinophils % % Basophils % % Neutrophils # (1.6-8.9) K/mcL Lymphocytes # (0.6-4.6) K/mcL Monocytes # (0.0-1.3) K/mcL Eosinophils # (0.0-0.6) K/mcL Basophils # (0.0-0.2) K/mcL PT (9.4-12.1) Seconds INR APTT (26.0-36.0) Seconds Sodium (136-145) mEq/L Potassium (3.5-5.1) mEq/L Chloride (98-107) mEq/L Carbon Dioxide (23-29) mEq/L BUN (8-23) mg/dL Creatinine (0.60-1.20) mg/dL Est GFR ( Amer) (> 60) Est GFR (Non-Af Amer) (> 60) BUN/Creatinine Ratio (6-26) Glucose (70-105) mg/dL POC Glucose (58-89) Calculated Osmolality (280-300) Lactic Acid 1.3 (0.5-2.2) mmol/L Calcium (8.6-10.3) mg/dL Troponin I 0.11 H* (< 0.04) ng/mL B-Natriuretic Peptide 1067 H (Less than 100) pg/mL 03/17/17 Range/Units 15:42 WBC (4.3-11.1) K/mcL RBC (3.82-4.97) M/mcL Hgb (11.5-15.4) g/dL Hct (35.3-44.9) % MCV (83.0-100.0) fL MCH (28.0-33.3) pg MCHC (31.6-35.5) g/dL RDW (11.5-14.5) % Plt Count (140-400) K/mcL MPV (9.4-12.4) fL Immature Gran % (0-4) % Seg Neutrophils % % Lymphocytes % % Monocytes % % Eosinophils % % Basophils % % Neutrophils # (1.6-8.9) K/mcL Lymphocytes # (0.6-4.6) K/mcL Monocytes # (0.0-1.3) K/mcL Eosinophils # (0.0-0.6) K/mcL Basophils # (0.0-0.2) K/mcL PT (9.4-12.1) Seconds INR APTT (26.0-36.0) Seconds Sodium (136-145) mEq/L Potassium (3.5-5.1) mEq/L Chloride (98-107) mEq/L Carbon Dioxide (23-29) mEq/L BUN (8-23) mg/dL Creatinine (0.60-1.20) mg/dL Est GFR ( Amer) (> 60) Est GFR (Non-Af Amer) (> 60) BUN/Creatinine Ratio (6-26) Glucose (70-105) mg/dL POC Glucose 102 H (58-89) Calculated Osmolality (280-300) Lactic Acid (0.5-2.2) mmol/L Calcium (8.6-10.3) mg/dL Troponin I (< 0.04) ng/mL B-Natriuretic Peptide (Less than 100) pg/mL - Radiology Data Radiology results reviewed: Yes I reviewed the patient's radiology results. Chest X-Ray 03/17/17 14:43 IMPRESSION: 1. Cardiomegaly without overt failure. D/ / Jorge Callejas MD / Jorge Callejas MD Interpreting Provider: Jorge Callejas MD - EKG Data EKG attestation: Yes I reviewed and interpreted this EKG. EKG shows normal: Reports: sinus rhythm Rate: Reports: tachycardia Rhythm: Reports: A.Fib (1 20 bpm QRS [address] segment depressions antique flipped T waves in V3 V4 V5 V6) When compared to previous EKG there are: other (EKG shows electrical ventricularly paced rhythm with a rate of 65 at 1443no ischemic changes appreciated)
[2017-03-17] MEDS ORDERED: Aspirin 81 MG TAB.CHEW PO ONE (15:03)
[2017-03-17 15:13] LABS: Basophils % 0.7 %; Eosinophils # 0.1 K/mcL (0.0-0.6); Eosinophils % 1.2 %; Hemoglobin 10.1 g/dL (11.5-15.4); Immature Granulocytes % 0.3 % (0-4); Mean Corpuscular HGB Conc 31.6 g/dL (31.6-35.5); Mean Corpuscular Hemoglobin 29.4 pg (28.0-33.3); Mean Platelet Volume 10.7 fL (9.4-12.4); Monocytes # 0.5 K/mcL (0.0-1.3); Monocytes % 8.7 %; Neutrophils # 4.2 K/mcL (1.6-8.9); Platelet Count 156 K/mcL (140-400); Red Blood Count 3.44 M/mcL (3.82-4.97); Red Cell Distribution Width 16.2 % (11.5-14.5); Segmented Neutrophils % 72.1 %
[2017-03-17 15:27] LABS: BUN/Creatinine Ratio 12 (6-26); Blood Urea Nitrogen 12 mg/dL (8-23); Calcium 9.3 mg/dL (8.6-10.3); Carbon Dioxide 25 mEq/L (23-29); Chloride 109 mEq/L (98-107); Glucose 95 mg/dL (70-105); Osmolality,Calculated 294 (280-300); Potassium 3.6 mEq/L (3.5-5.1); Sodium 142 mEq/L (136-145); eGFR For African Americans > 60 (> 60); eGFR For Non-African Americans 55 (> 60)
[2017-03-17] MEDS ORDERED: *HR* Metoprolol 5 MG/5 ML VIAL IVP ONE (15:42)
--- NOTE | 2017-03-17 15:44 | Emergency Department Note ---
START Narrative - START START: I examined this patient and my medical decision-making was reviewed with the Resident Physician. I agree with the documented findings, disposition and treatment plan as described except to the extent set forth below. 66-year-old female presented to the ER for shortness of breath. Patient has been in a tachyarrhythmia that, at times seems like she goes into A. fib with RVR and then goes back into a paced rhythm. Her troponins are elevated. Patient was seen here by myself last week for symptomatic hypotension and underwent central line placements and fluids and pressors. Patient still has an elevated troponin again today. She symptomatic with the tachycardia. Patient will need to be admitted. We will consult with cardiology as well.
[2017-03-17 16:09] LABS: INR 1.4; Prothrombin Time 14.7 Seconds (9.4-12.1)
[2017-03-17 16:12] LABS: Activated Partial Thrombo Time 31.9 Seconds (26.0-36.0)
[2017-03-17] MEDS ORDERED: 0.9 % Sodium Chloride 500 ML ONE (17:32)
[2017-03-17] MEDS: dilTIAZem HCl 100 MG in D5% in Water 50 ML IVC SCH (18:39)
--- NOTE | 2017-03-17 21:25 | Internal Med History&Physical ---
Date of Encounter: 03/17/17 Time of Encounter: 21:06 Assessment and Plan (1) Atrial fibrillation with RVR Current visit: Yes Status: Acute Continue Cardizem drip, Toprol XL, Eliquis. Appreciate Cardiology recs if modafinil should be continued. She states that she was told to stop taking this medication. (2) Elevated troponin Current visit: No Status: Resolved Cardiology consulted, recommendations appreciated. Continue Elquisis, cycle troponin. Nitro prn. (3) Hypertension Current visit: Yes Status: Acute Toprol XL and cardizem drip. Avoid any prn hydralazine for now because of potential for rebound tachycardia. Qualifiers: Hypertension type: essential hypertension Qualified Code(s): I10 - Essential (primary) hypertension (4) Chronic diastolic (congestive) heart failure Current visit: No Status: Chronic Continue current treatment, cardiac diet, Echocardiogram reviewed from previous admission. (5) Gout Current visit: No Status: Chronic Qualifiers: Gout site: multiple sites Gout etiology: idiopathic Chronicity: chronic Presence of tophus: without tophus Qualified Code(s): M1A.09X0 - Idiopathic chronic gout, multiple sites, without tophus (tophi) (6) Multiple sclerosis Current visit: No Status: Chronic (7) History of deep venous thrombosis (DVT) of distal vein of right lower extremity Current visit: No Status: Chronic (8) CAD (coronary artery disease) Current visit: No Status: Chronic Qualifiers: Coronary Disease-Associated Artery/Lesion type: [place] artery [place] vs. transplanted heart: [place] heart Associated angina: without angina Qualified Code(s): I25.10 - Atherosclerotic heart disease of [place] coronary artery without angina pectoris (9) COPD (chronic obstructive pulmonary disease) Current visit: No Status: Chronic If she needs aerosol therapy, should do ipratrorium alone to avoid tachycardia side effects of albuterol. Qualifiers: COPD type: chronic bronchitis Chronic bronchitis type: simple Qualified Code(s): J41.0 - Simple chronic bronchitis (10) Chronic kidney disease, stage 3 Current visit: Yes Status: Acute GFR 55, creatinine wnl Internal Medicine - H&P: HPI History of present illness: Ms. Roberts is a 66 year old female with history of atrial fibrillation on Eliquis and Toprol XL, tachy/elham syndrome s/p pacemaker and OR, recent hypovolemic shock, DVT presented for dyspnea and palpitations with heavy chest feelings\\. She was recently discharged 3 days ago for hypovolemic shock. She had echocardiogram done LVEF 60-65%, mod left ventricular diastolic dysfuntion, asymmetric basal septal hypertrophy, normal right ventricular structure and function. Also admits to conversational dyspnea and PND. She denies diaphoresis, numbness/tingling, radiation, n/v, fevers/chills. She was started Cardizem drip, HR now in 70s, dyspnea improving. Troponin 0.11, BNP elevated at 1067. Cardiology consulted in ED, per ED note no recommednations for heparin drip since she is already on Eliquis. She had edema yesterday and gave herself a dose of her Lasix though she was supposed to hold this because of her BP was low during prior hospital admission. Past Med Surg Social Fam HX - Past Medical History Medical history: arthritis, COPD, DVT, GERD, hyperlipidemia, hypertension, migraine, myocardial infarction, RA, renal disease, other Psychiatric history: no psych history - Past Surgical History Surgical History: appendectomy, colectomy, orthopedic, other, pacemaker/AICD, other - Social History Smoking Status: Never smoker Smokeless Tobacco Status: No Alcohol use: none Drug use: none - Family History Father Cause of : cancer Hx Family Cardiac Disorders: Yes Hx Family Respiratory Disorders: No Hx Family Cancer: No Hx Family GI Disorders: No Hx Family Genitourinary Disorders: No Hx Family Endocrine Disorder: No Hx Family Musculoskeletal Disorders: No Hx Family Neuromuscular Disorders: No Hx Family Neurologic Disorders: No Hx Family HEENT Disorders: No Hx Family Autoimmune Disorders: No Hx Family Reproductive Disorders: No Hx Family Psychosocial Disorders: No Hx Family Medical Disorders: No Internal Medicine - H&P: Meds Albuterol Sulfate [Albuterol Inhaler] 2 puff IH Q4H PRN 11/04/15 [History] Fluticasone Propionate Nasal [Flonase] 2 spray NS BID 11/04/15 [History] Zolpidem [Ambien] 10 mg PO HS PRN 11/04/15 [History] Lansoprazole [Prevacid] 30 mg PO DAILY #30 capsule.dr 11/12/15 [Rx] Modafinil [Provigil] 200 mg PO BID #60 tablet 08/16/16 [Rx] Pramipexole [Mirapex] 0.5 mg PO DAILY #30 tablet 11/12/15 [Rx] Simvastatin [Zocor] 20 mg PO HS #30 tablet 11/12/15 [Rx] Apixaban [Eliquis] 5 mg PO BID 03/11/17 [History] Nitroglycerin [Nitrostat] 0.4 mg SL Q5-6MIN PRN 03/11/17 [History] Nystatin POWDER [Nystop] 1 appl TP BID 03/11/17 [History] Oxycodone HCl/Acetaminophen [Percocet 7.5-325 mg Tablet] 1 tab PO TID PRN MDD 3 03/11/17 [History] Acetaminophen [Tylenol] 325 mg PO Q6HR PRN 03/17/17 [History] Metoprolol XL (24 HR) Succ [Toprol XL] 50 mg PO DAILY 03/17/17 [History] 3 Allergy/AdvReac Type Severity Reaction Status Date / Time mannitol [From Reclast] Allergy Hives Verified 03/12/17 09:04 zoledronic acid Allergy Hives Verified 03/12/17 09:04 [From Reclast] adhesive tape AdvReac Rash Verified 03/12/17 09:04 aspirin AdvReac Nausea Verified 03/12/17 09:04 cephalexin [From Keflex] AdvReac STOMACH Verified 03/12/17 09:04 UPSET codeine AdvReac Abdominal Verified 03/12/17 09:04 Pain Iodinated Contrast- Oral and AdvReac Hives AND Verified 03/12/17 09:04 IV Dye BREATHING ISSUES All Systems PM: A 10-system review of systems was performed and is negative for pertinent findings except as documented above in the HPI. - Constitutional Constitutional: no chills, no fever(s), no night sweats - EENT Eyes: no change in vision, no discharge, no pain, no photophobia Nose, mouth and throat: no dysphagia, no nasal discharge, no neck pain, no sore throat - Cardiovascular Cardiovascular ROS IM: chest pain ("discomfort"), dyspnea, edema, palpitations, paroxysmal nocturnal dyspnea, no diaphoresis, no lightheadedness, no orthopnea, no syncope, no other - Respiratory Respiratory: dyspnea, dyspnea on exertion, no wheezing, no stridor, no pain on inspiration, no excessive phlegm production - Gastrointestinal Gastrointestinal: no abdominal pain, no diarrhea, no hematemesis, no hematochezia, no melena, no nausea, no vomiting - Musculoskeletal Musculoskeletal ROS IM: no joint swelling, no numbness, no tingling - Constitutional Vitals: Temp Pulse Resp BP Pulse Ox 98.2 F 119 17 148/72 95 03/17/17 19:02 03/17/17 19:02 03/17/17 19:02 03/17/17 19:11 03/17/17 19:02 General appearance: Present: A&O X 3, no acute distress, answers questions appropriately - Head Head exam: Present: atraumatic, normocephalic - Respiratory Respiratory exam: Present: decreased breath sounds, CTAB. Absent: accessory muscle use, chest wall tenderness, prolonged expiratory phase, rales, respiratory distress - Cardiovascular Cardiovascular exam: Present: RRR, +S1, +S2. Absent: diastolic murmur, gallop, rubs, systolic murmur - Extremities Exam Extremities exam: Present: warm, radial pulses palpable and symmetrical. Absent : calf tenderness, cyanotic, pedal edema Internal Med - H&P Results - Labs CBC & Chem 7: 03/17/17 15:04 03/17/17 15:04
[2017-03-17] MEDS ORDERED: Nitroglycerin 0.4 MG TAB.SUBL SL PRN (21:30)
[2017-03-17] MEDS ORDERED: *HR* OxyCODONE/APAP 7.5/325 TABLET PO PRN (21:30)
[2017-03-17] MEDS ORDERED: Acetaminophen 325 MG TABLET PO PRN (21:30)
[2017-03-17] MEDS ORDERED: Naloxone 0.4 MG/ML INJ IVP PRN (21:37)
[2017-03-17] MEDS ORDERED: Ondansetron 4 MG/2 ML VIAL IVP PRN (21:37)
[2017-03-18] MEDS ORDERED: *HR* Metoprolol 5 MG/5 ML VIAL IVP PRN (00:30)
[2017-03-18 03:48] LABS: Hematocrit 30.3 % (35.3-44.9); Hemoglobin 9.4 g/dL (11.5-15.4); Immature Granulocytes % 0.8 % (0-4); Lymphocytes # 0.3 K/mcL (0.6-4.6); Lymphocytes % 9.9 %; Mean Corpuscular Volume 93.5 fL (83.0-100.0); Mean Platelet Volume 11.9 fL (9.4-12.4); Monocytes # 0.1 K/mcL (0.0-1.3); Monocytes % 3.4 %; Platelet Count 155 K/mcL (140-400); Red Blood Count 3.24 M/mcL (3.82-4.97); Red Cell Distribution Width 16.2 % (11.5-14.5); Segmented Neutrophils % 85.9 %
[2017-03-18 03:54] LABS: Neutrophils # 2.2 K/mcL (1.6-8.9)
[2017-03-18 04:14] LABS: BUN/Creatinine Ratio 19 (6-26); Blood Urea Nitrogen 18 mg/dL (8-23); Calcium 8.7 mg/dL (8.6-10.3); Carbon Dioxide 21 mEq/L (23-29); Chloride 110 mEq/L (98-107); Glucose 177 mg/dL (70-105); Osmolality,Calculated 304 (280-300); Potassium 3.9 mEq/L (3.5-5.1); Sodium 144 mEq/L (136-145); eGFR For African Americans > 60 (> 60); eGFR For Non-African Americans 57 (> 60)
[2017-03-18] MEDS: dilTIAZem HCl 100 MG in D5% in Water 50 ML IVC SCH (07:00)
[2017-03-18] MEDS ORDERED: Acetaminophen 325 MG TABLET PO PRN (07:58)
[2017-03-18] MEDS: APIXABAN 5 MG TABLET PO SCH ×2 (08:27→20:09)
[2017-03-18] MEDS: Fluticasone Propionate Nasal 50 MCG/SPRAY BOTTLE NS SCH (08:28)
[2017-03-18] MEDS: Nystatin POWDER 30 GM BOTTLE TP SCH ×2 (08:28→22:56)
[2017-03-18] MEDS ORDERED: Metoprolol XL (24 HR) Succ 50 MG TAB.ER.24H PO SCH (09:00)
--- NOTE | 2017-03-18 10:45 | Internal Med Progress Note ---
<TrooHusam - Last Filed: 03/18/17 11:02> Date of Encounter: 03/18/17 Time of Encounter: 09:00 - Assessment and plan (1) Atrial fibrillation with RVR Current Visit: Yes Status: Acute Assessment and plan: On cardizem drip, between 2.5 and 5.0. Has flipped back and forth between normal sinus and RVR a few times. Continue toprol and eliquis. Cardiology following. (2) Elevated troponin Current Visit: Yes Status: Acute Assessment and plan: Cardiology consulted. Troponin 0.11 > 0.08. Nitroglycerin as needed. (3) Hypertension Current Visit: Yes Status: Acute Assessment and plan: Controlled. Continue toprol and cardizem. Qualifiers: Hypertension type: essential hypertension Qualified Code(s): I10 - Essential (primary) hypertension (4) Chronic diastolic (congestive) heart failure Current Visit: No Status: Chronic Assessment and plan: Cardiac diet. Continue current treatment. (5) CAD (coronary artery disease) Current Visit: No Status: Chronic Qualifiers: Coronary Disease-Associated Artery/Lesion type: [place] artery [place] vs. transplanted heart: [place] heart Associated angina: without angina Qualified Code(s): I25.10 - Atherosclerotic heart disease of [place] coronary artery without angina pectoris (6) Gout Current Visit: No Status: Chronic Assessment and plan: Controlled. Qualifiers: Gout site: multiple sites Gout etiology: idiopathic Chronicity: chronic Presence of tophus: without tophus Qualified Code(s): M1A.09X0 - Idiopathic chronic gout, multiple sites, without tophus (tophi) (7) Chronic kidney disease, stage 3 Current Visit: Yes Status: Acute Assessment and plan: No elevation of Cr currently (8) COPD (chronic obstructive pulmonary disease) Current Visit: No Status: Chronic Assessment and plan: Albuterol changed from scheduled to as needed to reduce tachycardia effects Qualifiers: COPD type: chronic bronchitis Chronic bronchitis type: simple Qualified Code(s): J41.0 - Simple chronic bronchitis - Subjective Interval history: Patient states that she is feeling somewhat better since admission, but she still complains of chest heaviness, palpitations, and "feeling winded. She has switched from afib RVR to sinus rhythm and back several times. - Constitutional Vitals: Temp Pulse Resp BP Pulse Ox 98.2 F 65 18 111/69 97 12/21/17 06:42 03/18/17 06:42 03/18/17 06:42 03/18/17 06:42 03/18/17 06:42 General appearance: Present: A&O X 3, no acute distress, answers questions appropriately - Head Head exam: Present: atraumatic, normal inspection, normocephalic - ENT ENT exam: Present: mucous membranes moist - Neck Neck exam general surgery: Present: trachea midline - Respiratory Respiratory exam: Present: decreased breath sounds, CTAB. Absent: accessory muscle use, respiratory distress - Cardiovascular Cardiovascular exam: Present: RRR, +S1, +S2 - GI/Abdominal GI/Abdominal exam: Present: normal bowel sounds, soft, no peritoneal signs. Absent: tenderness - Neurological Exam Neurological exam: Present: alert, oriented X3 - Psychiatric Psychiatric exam: Present: normal affect, normal mood - Skin Skin exam: Present: dry, warm. Absent: diaphoretic Internal Medicine: Result - Labs CBC & Chem 7: 03/18/17 02:59 03/18/17 02:59 Labs: Short CBC 03/18/17 Range/Units 02:59 WBC 2.6 L D (4.3-11.1) K/mcL Hgb 9.4 L (11.5-15.4) g/dL Hct 30.3 L (35.3-44.9) % Plt Count 155 (140-400) K/mcL Neutrophils # 2.2 (1.6-8.9) K/mcL BMP 03/18/17 02:59 Sodium 144 Potassium 3.9 Chloride 110 H Carbon Dioxide 21 L BUN 18 Creatinine 0.97 Glucose 177 H Calcium 8.7 Cardiac Enzymes 03/17/17 Range/Units 21:53 Troponin I 0.08 H* (< 0.04) ng/mL - ABG Interpretation ABG results: PT/INR, D-dimer PT 14.7 Seconds (9.4-12.1) H 03/17/17 13:04 Consult Discharge Plan - Plan Referrals: Addy Fraire MD [Primary Care Provider] - (waiting on d/c needs) <Alfredito-Rg Thomason - Last Filed: 03/18/17 13:45> Date of Encounter: 03/18/17 - Constitutional Vitals: Temp Pulse Resp BP Pulse Ox 97.4 F L 65 18 119/75 97 03/18/17 10:45 03/18/17 10:45 03/18/17 10:45 03/18/17 10:45 03/18/17 10:45 Internal Medicine: Result - Labs CBC & Chem 7: 03/18/17 02:59 03/18/17 02:59 Labs: Short CBC 03/18/17 Range/Units 02:59 WBC 2.6 L D (4.3-11.1) K/mcL Hgb 9.4 L (11.5-15.4) g/dL Hct 30.3 L (35.3-44.9) % Plt Count 155 (140-400) K/mcL Neutrophils # 2.2 (1.6-8.9) K/mcL BMP 03/18/17 02:59 Sodium 144 Potassium 3.9 Chloride 110 H Carbon Dioxide 21 L BUN 18 Creatinine 0.97 Glucose 177 H Calcium 8.7 Cardiac Enzymes 03/17/17 Range/Units 21:53 Troponin I 0.08 H* (< 0.04) ng/mL - ABG Interpretation ABG results: PT/INR, D-dimer PT 14.7 Seconds (9.4-12.1) H 03/17/17 13:04 - Attending Attestation I examined this patient and my medical decision-making was reviewed with the Resident Physician. I agree with the documented findings, disposition and treatment plan as described except to the extent set forth below. I have seen and examined the patient. Patient has past medical history of COPD , DVT, atrial fibrillation, hypertension and hyperlipidemia. Admitted last night for A. fib with RVR. She was started on Cardizem drip and continued on Toprol-XL. Patient is on Eliquis for anticoagulation. Cardiology has evaluated the patient today. Advised to discontinue Cardizem drip. Patient has been started on Cardizem by mouth. On examination patient is awake and alert. Not in any distress. Denies chest pain or shortness of breath. No other acute events or complaints at this time.
[2017-03-18] MEDS: *HR* OxyCODONE/APAP 7.5/325 TABLET PO PRN ×2 (11:56→20:08)
--- NOTE | 2017-03-18 12:34 | Electrophysiology Consult Note ---
<Mervat Montalvo - Last Filed: 03/18/17 12:39> Date of Encounter: 03/18/17 Time of Encounter: 09:00 Assessment and Plan (1) Atrial fibrillation with RVR Current Visit: Yes Status: Acute Per cardiology: -Admitted with a.fib RVR. -Known history of PAF. -Was on cardizem drip at 2.5mg/hour. On beta raza -Had previously been on beta raza, however was stopped during last admission for hypotension. -Per review of outpaient records, pateint was seen by Dr.John Skinner who recommended patient stop beta raza and start low dose cardizem. However, patient did not follow these changes. -Currently SR. Average HR previous 12 hours noted to be 78. -On eliquis for anticoagulation. -Will stop beta blcoker and cardizem drip. -Will start cardizem CD 120gm daily tomorrow. (2) Pacemaker Current Visit: No Status: Chronic Per cardiology: -Know medtronic dual chamber pacemaker for tachybrady syndrome. -Of note, patient has no showed to her device checks. -Last known device check 08/2015. -Device checked inpatient and noted to have met MIGUEL ANGEL 02/2016. -Will discuss and review device check with Dr.John Skinner. (3) Elevated troponin Current Visit: No Status: Acute Per cardiology: -Troponin 0.11, 0.08 in the setting of a.fib RVR. -Denies chest pain. -ECG with no acute ischemic changes. -Recent TTE 03/12/17 with LVEF 60-65%, moderate diastolic dysufnction, no segmental wall motion abnormalities. -Stress 2013 negative for ischemia or infarct. -On statin. Not on asa due to allergy. -Troponins flat and adynamic in the setting of a.fib RVR. Do not suspect NSTEMI , suspect demand ischmia. NO cardiac rehab warranted at this time. Discussion w patient/family: The assessment and plan as outlined above was discussed with the patient who expressed understanding and agreement. All questions were answered. Thank you for involving us in the care of your patient. Please call with any questions. Discussed and reviewed with Dr.John Skinner. History of Present Illness Consult date: 03/17/17 Requesting physician: Christopher Case Consult reason: a.fib rvr Chief complaint: shortness of breath History of present illness: Ms. Roberts is a 66 year old female with a relevant past medical history of MS, narcolepsy, tachybrady syndrome s/p pacemaker, DVT, hyperlipidemia, CAD, [place], anemia, GERD, HTN, COPD, CVA, PAF. Patient presented to [facility] with complaints of increased shortness of breath. Patient reports associated palpitations and fluttering. Patient denies chest pain. Patient reports recent hospital admission for dehydration and hypotension and was discharged without her beta raza. Patient denies current palpitations or fluttering. States is still somewhat short of breath, however states is much improved. Past Med Surg Social Fam HX - Past Medical History Attestation: Yes The following information was validated with the patient. Source: patient, old records reviewed Medical history: arthritis, atrial fibrillation, CHF, COPD, coronary artery disease, CVA, DVT, GERD, hyperlipidemia, hypertension, migraine, myocardial infarction, RA, renal disease, other Psychiatric history: no psych history - Past Surgical History Surgical History: appendectomy, colectomy, orthopedic, other, pacemaker/AICD, other - Social History Smoking Status: Never smoker Smokeless Tobacco Status: No Alcohol use: none Drug use: none - Family History Father Cause of : cancer Hx Family Cardiac Disorders: Yes Hx Family Respiratory Disorders: No Hx Family Cancer: No Hx Family GI Disorders: No Hx Family Genitourinary Disorders: No Hx Family Endocrine Disorder: No Hx Family Musculoskeletal Disorders: No Hx Family Neuromuscular Disorders: No Hx Family Neurologic Disorders: No Hx Family HEENT Disorders: No Hx Family Autoimmune Disorders: No Hx Family Reproductive Disorders: No Hx Family Psychosocial Disorders: No Hx Family Medical Disorders: No Medications and Allergies Albuterol Sulfate [Albuterol Inhaler] 2 puff IH Q4H PRN 11/04/15 [History] Fluticasone Propionate Nasal [Flonase] 2 spray NS BID 11/04/15 [History] Zolpidem [Ambien] 10 mg PO HS PRN 11/04/15 [History] Lansoprazole [Prevacid] 30 mg PO DAILY #30 capsule. 11/12/15 [Rx] Modafinil [Provigil] 200 mg PO BID #60 tablet 11/12/15 [Rx] Pramipexole [Mirapex] 0.5 mg PO DAILY #30 tablet 11/12/15 [Rx] Simvastatin [Zocor] 20 mg PO HS #30 tablet 11/12/15 [Rx] Apixaban [Eliquis] 5 mg PO BID 03/11/17 [History] Nitroglycerin [Nitrostat] 0.4 mg SL Q5-6MIN PRN 03/11/17 [History] Nystatin POWDER [Nystop] 1 appl TP BID 03/11/17 [History] Oxycodone HCl/Acetaminophen [Percocet 7.5-325 mg Tablet] 1 tab PO TID PRN MDD 3 03/11/17 [History] Acetaminophen [Tylenol] 325 mg PO Q6HR PRN 03/17/17 [History] Metoprolol XL (24 HR) Succ [Toprol XL] 50 mg PO DAILY 03/17/17 [History] 3 Allergy/AdvReac Type Severity Reaction Status Date / Time mannitol [From Reclast] Allergy Hives Verified 03/12/17 09:04 zoledronic acid Allergy Hives Verified 03/12/17 09:04 [From Reclast] adhesive tape AdvReac Rash Verified 03/12/17 09:04 aspirin AdvReac Nausea Verified 03/12/17 09:04 cephalexin [From Keflex] AdvReac STOMACH Verified 03/12/17 09:04 UPSET codeine AdvReac Abdominal Verified 03/12/17 09:04 Pain Iodinated Contrast- Oral and AdvReac Hives AND Verified 03/12/17 09:04 IV Dye BREATHING ISSUES All Systems Review: A 10-system review of systems was performed and is negative for pertinent findings except as documented above in the HPI. - Cardiovascular Cardiovascular: as per HPI, dyspnea on exertion, palpitations, rapid heart rate Physical Examination Vital Signs, Last 4 Hours Temp Pulse Resp BP Pulse Ox 03/18/17 10:45 97.4 F L 65 18 119/75 97 General: Conversant, No Apparent Distress HEENT: Atraumatic, Normocephaly, Mucus Membranes Moist Neck: No JVD, Normal carotid pulses Cardiac: Reg Rate and Rhythm, Normal S1 and S2, No Murmur Lungs: Normal Breath Sounds, No Wheeze, Rales, Rhonchi Neuro: Alert and responsive, No focal deficits noted Abdomen: Soft, Non-Tender Skin: No rashes noted on visualized skin Musculoskeletal: No Chest Wall Tenderness Extremities: No Clubbing, No Cyanosis, Normal Pulses, Other (Mild bilateral pedal edema noted, non-pitting. ) Results 03/18/17 02:59 03/18/17 02:59 Lab Results Impressions Chest X-Ray 03/17/17 14:43 IMPRESSION: 1. Cardiomegaly without overt failure. D/ / Jorge Callejas MD / Jorge Callejas MD Interpreting Provider: Jorge Callejas MD Active Medications Acetaminophen (Tylenol) 325 mg PO Q6HR PRN PRN Reason: Mild Pain Stop: 09/16/17 21:31 Albuterol Sulfate (Albuterol Inhaler) 2 puff IH [id number] PRN PRN Reason: Shortness Of Breath/Wheezing Stop: 09/17/17 00:01 Apixaban (Eliquis) 5 mg PO BID [facility] Stop: 09/17/17 09:01 Last Admin: 03/18/17 08:27 Dose: 5 mg Diltiazem HCl (Cardizem Cd) 120 mg PO DAILY [facility] Stop: 09/18/17 09:01 Fluticasone Propionate (Flonase) 100 mcg NS BID [facility] PRN Reason: Protocol Stop: 09/17/17 09:01 Last Admin: 03/18/17 08:28 Dose: 100 mcg Metoprolol Tartrate (Lopressor) 5 mg IVP Q6HR PRN PRN Reason: HR>110 Stop: 09/17/17 00:31 Naloxone HCl (Narcan) 0.4 mg IVP Q2MIN PRN PRN Reason: Opioid Reversal Stop: 09/16/17 21:38 Nitroglycerin (Nitroglycerin) 0.4 mg SL Q5MIN PRN PRN Reason: CHEST PAIN Stop: 09/16/17 21:31 Nystatin (Nystop) 1 appl TP BID [facility] Stop: 09/17/17 09:01 Last Admin: 03/18/17 08:28 Dose: 1 appl Omeprazole (Prilosec) 20 mg PO DAILY [facility] PRN Reason: Protocol Stop: 09/17/17 09:01 Last Admin: 03/18/17 08:27 Dose: 20 mg Ondansetron HCl (Zofran) 4 mg IVP Q8HR PRN PRN Reason: Nausea And Vomiting Stop: 09/16/17 21:38 Oxycodone/Acetaminophen (Percocet 7.5/325) 1 each PO TID PRN PRN Reason: Moderate to Severe Pain Stop: 09/16/17 21:31 Last Admin: 03/18/17 11:56 Dose: 1 each Pramipexole Dihydrochloride (Mirapex) 0.5 mg PO DAILY [facility] Stop: 09/17/17 09:01 Last Admin: 03/18/17 08:27 Dose: 0.5 mg Simvastatin (Zocor) 20 mg PO HS [facility] PRN Reason: Protocol Stop: 09/17/17 21:01 Zolpidem Tartrate (Ambien) 10 mg PO HS PRN; Protocol PRN Reason: Insomnia Stop: 09/16/17 21:31 Last Admin: 03/17/17 22:14 Dose: 10 mg Laboratory Tests 03/17/17 03/17/17 03/18/17 15:04 21:53 02:59 WBC 2.6 L D Hgb 9.4 L Creatinine Troponin I 0.11 H* 0.08 H* 03/18/17 02:59 WBC Hgb Creatinine 0.97 Troponin I - Imaging and Cardiology Chest Xray: report reviewed Stress Test: report reviewed Echo: report reviewed - EKG Interpretation EKG results cardiology: personally reviewed (ECG with atrial fibrillation with RVR, HR 128.), other (Telemetry reviewed with average HR previous 12 hours noted to be 78. Intermittent SR, intermittent paced rhythm, intermittent atrial fibrillation. PVCS noted.) Consult Discharge Plan - Plan Referrals: Addy Fraire MD [Primary Care Provider] - (waiting on d/c needs) <Garland Skinner - Last Filed: 03/18/17 15:02> Date of Encounter: 03/18/17 - Attending Attestation I have personally performed a face to face evaluation on this patient. I have reviewed and agree with the care plan. History and Exam by me shows: Device is well past recommended replacement time due to pt. noncompliance. Also RV lead is likely fractured. Needs RV lead replacement and generator change arranged as outpt. She does not require pacemaker support. Assessment and Plan Discussion w patient/family: The assessment and plan as outlined above was discussed with the patient and/or family members who expressed understanding and agreement. All questions were answered. Thank you for involving us in the care of your patient. Please call with any questions. History of Present Illness History of present illness: Ms. Roberts is a 66 year old female All Systems Review: A 10-system review of systems was performed and is negative for pertinent findings except as documented above in the HPI. Physical Examination Vital Signs, Last 4 Hours Temp Pulse Resp BP Pulse Ox 03/18/17 14:52 97.5 F L 64 18 116/82 96 Results 03/18/17 02:59 03/18/17 02:59 Lab Results 03/17/17 03/18/17 03/18/17 21:53 02:59 02:59 WBC 2.6 L D Hgb 9.4 L Hct 30.3 L Plt Count 155 Sodium 144 Potassium 3.9 Chloride 110 H Carbon Dioxide 21 L BUN 18 Creatinine 0.97 Glucose 177 H Calcium 8.7 Troponin I 0.08 H*
--- NOTE | 2017-03-18 16:34 | Electrocardiograph Report ---
[address] [place], [place] [address] Test Date: 2017-03-17 Pat Name: Rocío Roberts Department: 103 Room: 2A13 Gender: F Office Support Associate: CHRIST : 1950 Requested By: Christopher Case Order Number: [id number] Reading MD: Grey Castellano MD Measurements Intervals [place] Rate: 128 P: FL: 0 QRS: 19 QRSD: 90 T: 244 QT: 380 QTc: 456 Interpretive Statements ATRIAL FIBRILLATION WITH RAPID VENTRICULAR RESPONSE MODERATE T-WAVE ABNORMALITY, CONSIDER ANTEROLATERAL ISCHEMIA Electronically Signed On 03-18-2017 16:33:00 EST by Grey Castellano MD
--- NOTE | 2017-03-18 16:35 | Electrocardiograph Report ---
[address] [place] [address] Test Date: 2017-03-17 Pat Name: Rocío Roberts Department: 103 Room: 2A13 Gender: F Radio Interference Supervisor: CHRIST : 1950 Requested By: Dilshad Mckeon Order Number: [id number] Reading MD: Grey Castellano MD Measurements Intervals [place] Rate: 65 P: SD: 0 QRS: -73 QRSD: 157 T: 81 QT: 499 QTc: 510 Interpretive Statements ELECTRONIC VENTRICULAR PACEMAKER Electronically Signed On 03-18-2017 16:34:04 EST by Grey Castellano MD
--- NOTE | 2017-03-18 18:30 | Electrocardiograph Report ---
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
[2017-03-19 04:29] LABS: Hematocrit 29.5 % (35.3-44.9); Mean Corpuscular HGB Conc 30.5 g/dL (31.6-35.5); Mean Corpuscular Hemoglobin 29.3 pg (28.0-33.3); Mean Corpuscular Volume 96.1 fL (83.0-100.0); Mean Platelet Volume 11.5 fL (9.4-12.4); Platelet Count 157 K/mcL (140-400); Red Blood Count 3.07 M/mcL (3.82-4.97); Red Cell Distribution Width 17.1 % (11.5-14.5)
[2017-03-19 04:42] LABS: BUN/Creatinine Ratio 22 (6-26); Blood Urea Nitrogen 24 mg/dL (8-23); Calcium 8.9 mg/dL (8.6-10.3); Carbon Dioxide 26 mEq/L (23-29); Chloride 109 mEq/L (98-107); Glucose 88 mg/dL (70-105); Osmolality,Calculated 297 (280-300); Potassium 3.7 mEq/L (3.5-5.1); Sodium 142 mEq/L (136-145); eGFR For African Americans > 60 (> 60); eGFR For Non-African Americans 51 (> 60)
--- NOTE | 2017-03-19 08:58 | Internal Med Progress Note ---
<Husam Engel - Last Filed: 03/19/17 08:53> Date of Encounter: 03/19/17 Time of Encounter: 08:55 - Assessment and plan (1) Atrial fibrillation with RVR Current Visit: Yes Status: Acute Assessment and plan: Appreciate electrophysiology consult. Rate controlled on oral cardizem and metoprolol. Sinus rhythm since midnight. Continue eliquis. Will monitor. (2) Elevated troponin Current Visit: Yes Status: Acute Assessment and plan: Demand ischemia. Continue statin. No aspirin due to allergy. (3) Hypertension Current Visit: Yes Status: Acute Assessment and plan: Controlled. Continue metoprolol and cardizem. Qualifiers: Hypertension type: essential hypertension Qualified Code(s): I10 - Essential (primary) hypertension (4) Chronic diastolic (congestive) heart failure Current Visit: No Status: Chronic Assessment and plan: Cardiac diet, fluid restriction. Continue current treatment. (5) CAD (coronary artery disease) Current Visit: No Status: Chronic Qualifiers: Coronary Disease-Associated Artery/Lesion type: [place] artery [place] vs. transplanted heart: [place] heart Associated angina: without angina Qualified Code(s): I25.10 - Atherosclerotic heart disease of [place] coronary artery without angina pectoris (6) Gout Current Visit: No Status: Chronic Assessment and plan: Controlled. Qualifiers: Gout site: multiple sites Gout etiology: idiopathic Chronicity: chronic Presence of tophus: without tophus Qualified Code(s): M1A.09X0 - Idiopathic chronic gout, multiple sites, without tophus (tophi) (7) Chronic kidney disease, stage 3 Current Visit: Yes Status: Chronic Assessment and plan: Mild elevation in BUN, 24 < 18 Otherwise stable (8) COPD (chronic obstructive pulmonary disease) Current Visit: Yes Status: Chronic Assessment and plan: Albuterol changed from scheduled to as needed to reduce tachycardia effects Qualifiers: COPD type: chronic bronchitis Chronic bronchitis type: simple Qualified Code(s): J41.0 - Simple chronic bronchitis - Subjective Interval history: Patient states that symptoms are continually improving, though she still does have some of the chest heaviness. She has maintained sinus rhythm since at least midnight. - Constitutional Vitals: Temp Pulse Resp BP Pulse Ox 97.7 F 65 18 118/78 96 03/19/17 06:51 03/19/17 06:51 03/19/17 06:51 03/19/17 06:51 03/19/17 06:51 General appearance: Present: A&O X 3, no acute distress, answers questions appropriately - Head Head exam: Present: atraumatic, normal inspection, normocephalic - ENT ENT exam: Present: mucous membranes moist - Neck Neck exam general surgery: Present: trachea midline - Respiratory Respiratory exam: Present: CTAB - Cardiovascular Cardiovascular exam: Present: RRR, +S1, +S2 - GI/Abdominal GI/Abdominal exam: Present: normal bowel sounds, soft, no peritoneal signs. Absent: tenderness - Neurological Exam Neurological exam: Present: alert, oriented X3 - Skin Skin exam: Present: dry, warm Internal Medicine: Result - Labs CBC & Chem 7: 03/19/17 03:32 03/19/17 03:32 Labs: Short CBC 03/19/17 Range/Units 03:32 WBC 5.1 D (4.3-11.1) K/mcL Hgb 9.0 L (11.5-15.4) g/dL Hct 29.5 L (35.3-44.9) % Plt Count 157 (140-400) K/mcL BMP 03/19/17 03:32 Sodium 142 Potassium 3.7 Chloride 109 H Carbon Dioxide 26 BUN 24 H Creatinine 1.08 Glucose 88 Calcium 8.9 - ABG Interpretation ABG results: PT/INR, D-dimer PT 14.7 Seconds (9.4-12.1) H 03/17/17 13:04 Consult Discharge Plan - Plan Referrals: Addy Fraire MD [Primary Care Provider] - (waiting on d/c needs) <Rg Randhawa - Last Filed: 03/19/17 10:45> Date of Encounter: 03/19/17 - Constitutional Vitals: Temp Pulse Resp BP Pulse Ox 97.7 F 65 18 118/78 96 03/19/17 06:51 03/19/17 06:51 03/19/17 06:51 03/19/17 06:51 03/19/17 06:51 Internal Medicine: Result - Labs CBC & Chem 7: 03/19/17 03:32 03/19/17 03:32 Labs: Short CBC 03/19/17 Range/Units 03:32 WBC 5.1 D (4.3-11.1) K/mcL Hgb 9.0 L (11.5-15.4) g/dL Hct 29.5 L (35.3-44.9) % Plt Count 157 (140-400) K/mcL [facility] 03/19/17 03:32 Sodium 142 Potassium 3.7 Chloride 109 H Carbon Dioxide 26 BUN 24 H Creatinine 1.08 Glucose 88 Calcium 8.9 - ABG Interpretation ABG results: PT/INR, D-dimer PT 14.7 Seconds (9.4-12.1) H 03/17/17 13:04 - Attending Attestation I examined this patient and my medical decision-making was reviewed with the Resident Physician. I agree with the documented findings, disposition and treatment plan as described except to the extent set forth below. I have seen and examined the patient. Patient is awake and alert. Not in any distress. Denies chest pain or shortness of breath. Heart rate is currently well-controlled on Cardizem. Cardiology is following patient. No new events or complaints. Heart S1-S2 positive. Lungs bilateral good entry no wheezes or crackles.
[2017-03-19] MEDS: Fluticasone Propionate Nasal 50 MCG/SPRAY BOTTLE NS SCH ×3 (09:19→20:15)
[2017-03-19] MEDS: Diltiazem CD (24hr) 120 MG CAPSULE PO SCH (09:22)
[2017-03-19] MEDS: Nystatin POWDER 30 GM BOTTLE TP SCH ×2 (09:22→20:11)
[2017-03-19] MEDS: APIXABAN 5 MG TABLET PO SCH ×2 (09:22→20:11)
[2017-03-19] MEDS: *HR* OxyCODONE/APAP 7.5/325 TABLET PO PRN ×2 (15:59→20:15)
[2017-03-20 04:23] LABS: Hematocrit 30.4 % (35.3-44.9); Hemoglobin 9.3 g/dL (11.5-15.4); Mean Corpuscular HGB Conc 30.6 g/dL (31.6-35.5); Mean Corpuscular Hemoglobin 29.2 pg (28.0-33.3); Mean Corpuscular Volume 95.3 fL (83.0-100.0); Platelet Count 163 K/mcL (140-400); Red Blood Count 3.19 M/mcL (3.82-4.97); Red Cell Distribution Width 16.7 % (11.5-14.5)
[2017-03-20 04:37] LABS: BUN/Creatinine Ratio 20 (6-26); Blood Urea Nitrogen 20 mg/dL (8-23); Calcium 8.7 mg/dL (8.6-10.3); Carbon Dioxide 26 mEq/L (23-29); Chloride 107 mEq/L (98-107); Glucose 100 mg/dL (70-105); Osmolality,Calculated 289 (280-300); Potassium 4.2 mEq/L (3.5-5.1); Sodium 138 mEq/L (136-145); eGFR For African Americans > 60 (> 60); eGFR For Non-African Americans 54 (> 60)
[2017-03-20] MEDS ORDERED: Furosemide 20 MG/2 ML VIAL IVP ONE (08:43)
[2017-03-20] MEDS: Diltiazem CD (24hr) 120 MG CAPSULE PO SCH (09:45)
[2017-03-20] MEDS: APIXABAN 5 MG TABLET PO SCH (09:45)
[2017-03-20] MEDS: Fluticasone Propionate Nasal 50 MCG/SPRAY BOTTLE NS SCH (09:46)
[2017-03-20] MEDS: Nystatin POWDER 30 GM BOTTLE TP SCH (09:46)
--- NOTE | 2017-03-20 10:06 | Discharge Summary ---
<Charles Lieberman - Last Filed: 03/20/17 10:00> Date of Encounter: 03/20/17 Time of Encounter: 10:00 - Discharge Diagnosis (1) Atrial fibrillation with RVR Priority: Primary Status: Acute (2) CAD (coronary artery disease) Priority: Secondary Status: Chronic Qualifiers: Coronary Disease-Associated Artery/Lesion type: [place] artery [place] vs. transplanted heart: [place] heart Associated angina: without angina Qualified Code(s): I25.10 - Atherosclerotic heart disease of [place] coronary artery without angina pectoris (3) Chronic diastolic (congestive) heart failure Priority: Secondary Status: Chronic (4) Chronic kidney disease, stage 3 Priority: Secondary Status: Chronic (5) COPD (chronic obstructive pulmonary disease) Priority: Secondary Status: Chronic Qualifiers: COPD type: chronic bronchitis Chronic bronchitis type: simple Qualified Code(s): J41.0 - Simple chronic bronchitis (6) Elevated troponin Priority: Secondary Status: Acute (7) Gout Priority: Secondary Status: Chronic Qualifiers: Gout site: multiple sites Gout etiology: idiopathic Chronicity: chronic Presence of tophus: without tophus Qualified Code(s): M1A.09X0 - Idiopathic chronic gout, multiple sites, without tophus (tophi) (8) Hypertension Priority: Secondary Status: Acute Qualifiers: Hypertension type: essential hypertension Qualified Code(s): I10 - Essential (primary) hypertension - Discharge Medications Prescriptions: RX: Diltiazem CD (24hr) [Cardizem CD] 120 mg PO DAILY #30 cap.er.24h Furosemide [Lasix] 20 mg PO DAILY PRN #30 tablet PRN Reason: fluid overload Home Medications: RX: Albuterol Sulfate [Albuterol Inhaler] 2 puff IH Q4H PRN 11/04/15 [History] RX: Fluticasone Propionate Nasal [Flonase] 2 spray NS BID 11/04/15 [History] RX: Zolpidem [Ambien] 10 mg PO HS PRN 11/04/15 [History] RX: Lansoprazole [Prevacid] 30 mg PO DAILY #30 capsule.dr 11/12/15 [Rx] RX: Modafinil [Provigil] 200 mg PO BID #60 tablet 11/12/15 [Rx] RX: Pramipexole [Mirapex] 0.5 mg PO DAILY #30 tablet 11/12/15 [Rx] RX: Simvastatin [Zocor] 20 mg PO HS #30 tablet 11/12/15 [Rx] RX: Apixaban [Eliquis] 5 mg PO BID 03/11/17 [History] RX: Nitroglycerin [Nitrostat] 0.4 mg SL Q5-6MIN PRN 03/11/17 [History] RX: Nystatin POWDER [Nystop] 1 appl TP BID 03/11/17 [History] RX: Oxycodone HCl/Acetaminophen [Percocet 7.5-325 mg Tablet] 1 tab PO TID PRN MDD 3 03/11/17 [History] RX: Acetaminophen [Tylenol] 325 mg PO Q6HR PRN 03/17/17 [History] Furosemide [Lasix] 20 mg PO DAILY PRN #30 tablet 03/20/17 [Rx] RX: Diltiazem CD (24hr) [Cardizem CD] 120 mg PO DAILY #30 cap.er.24h 03/20/17 [ Rx] Allergies/Adverse Reactions: 3 Allergy/AdvReac Type Severity Reaction Status Date / Time mannitol [From Reclast] Allergy Hives Verified 03/12/17 09:04 zoledronic acid Allergy Hives Verified 03/12/17 09:04 [From Reclast] adhesive tape AdvReac Rash Verified 03/12/17 09:04 aspirin AdvReac Nausea Verified 03/12/17 09:04 cephalexin [From Keflex] AdvReac STOMACH Verified 03/12/17 09:04 UPSET codeine AdvReac Abdominal Verified 03/12/17 09:04 Pain Iodinated Contrast- Oral and AdvReac Hives AND Verified 03/12/17 09:04 IV Dye BREATHING ISSUES Procedures/tests Complete & Pending: Procedures Performed prior 72 hours Category Date Time Status ECG 12 lead ECG [ECG] Routine Y 03/18/17 00:18 Completed Date of admission: 03/17/17 21:37 Primary care physician: Addy Fraire MD Consults: 03/18/17 12:51 Consult to Electrophysiology (EP) [CONS] Routine Consulting Provider: Electrophysiology Pina Reason for Consult: PPM MIGUEL ANGEL Call Completed: Yes Discharging clinician: Charles Lieberman Anticipated date of discharge: 03/20/17 - Patient Status Disposition: Home, Self-Care Condition: Good Functional capacity at discharge: independent ambulation Overall status at discharge: patient is progressing back to baseline - Discharge Instructions Instructions: Atrial Fibrillation (DC), Chronic Obstructive Pulmonary Disease ( DC), Chronic Hypertension (DC) Follow Up With: Addy Fraire MD [Primary Care Provider] - (Please follow up with pcp) - Diet and Activity Activity: as per physical therapy Diet: low fat, low cholesterol, low salt diet Hospital course: Ms. Roberts is a 66 year old female resented chief complaint shortness of breath. Patient was found to have A. fib RVR, elevated troponin. She was started on Cardizem drip and her home metoprolol was continued initially. Cardiology was consulted and beta raza was discontinued and patient was transitioned to by mouth Cardizem. Patient's A. fib RVR converted to sinus rhythm and her respirations improved. Patient is anticoagulated with liquids. 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 Only secondary to demand ischemia. Patient is able to tolerate diet, ambulate independently. Plan: Continue Cardizem outpatient. Discontinue metoprolol. Continue eliquis. Follow-up with cardiology outpatient. - Time Spent with Patient Total time spent providing and/or coordinating discharge services: - Constitutional Vitals: Temp Pulse Resp BP Pulse Ox 98.1 F 68 16 97/66 98 03/20/17 08:30 03/20/17 08:30 03/20/17 08:30 03/20/17 08:30 03/20/17 08:30 General appearance: Present: A&O X 3, no acute distress, answers questions appropriately - Other Additional findings: General: Pleasant without distress HEENT: Head atraumatic, normocephalic, EOMI, PERRL, neck nontender to palpation , absent lymphadenopathy, Moist Mucous Membranes, Heart: Regular rate and rhythm with no murmur Lungs: Mild right basilar crackles otherwise clear Abdomen: Soft nontender, nondistended positive bowel sounds Skin: warm and dry Extremities: Absent pedal edema, Neuro: Cranial nerves II through XII intact, UE and LE sensation equal bilaterally, UE and LEstrength 5/5, alert oriented 3, able to ambulate independently Vascular: Pedal and radial pulses 2 out of 4 <Glaser-Bezwada,Rg - Last Filed: 03/20/17 17:03> Date of Encounter: 03/20/17 Procedures/tests Complete & Pending: Procedures Performed prior 72 hours Category Date Time Status ECG 12 lead ECG [ECG] Routine Y 03/18/17 00:18 Completed Date of admission: 03/17/17 21:37 Primary care physician: Addy Fraire MD Consults: 03/18/17 12:51 Consult to Electrophysiology (EP) [CONS] Routine Consulting Provider: Electrophysiology [place] Reason for Consult: PPM MIGUEL ANGEL Call Completed: Yes Hospital course: Ms. Roberts is a 66 year old female - Time Spent with Patient Total time spent providing and/or coordinating discharge services: - Constitutional Vitals: Temp Pulse Resp BP Pulse Ox 98.0 F 65 17 137/77 99 03/20/17 12:30 03/20/17 12:30 03/20/17 12:30 03/20/17 12:30 03/20/17 12:30 - Attending Attestation I examined this patient and my medical decision-making was reviewed with the Resident Physician. I agree with the documented findings, disposition and treatment plan as described except to the extent set forth below. I have seen and examined the patient. Patient is awake and alert. Not in any distress. Denies chest pain or shortness of breath. States she feels better and wants to go home. No other acute events or complaints. Stable for discharge. Follow up with cardiology as outpatient. Heart - S1S+. Lungs - b/l good air entry, no wheezing, crackles. Abdomen - soft , non-tender, non-distended. Neuro - no deficits, awake and alert.
[2017-03-20 13:58] VITALS: BP 137/77
== END 2017-03-20 14:00 | disposition home or self-care (01) | DRG 308 ==
LOC: EMEROO 14:21 → 2ANU 14:21
PROVIDERS: ADMIT Internal Medicine; ATTEND Internal Medicine

== ENCOUNTER 2017-04-20 08:56 | Inpatient (IN) ==
[2017-04-20] MEDS ORDERED: Vancomycin 1,500 MG in D5% in Water 250 ML IVPB ONE (09:01)
[2017-04-20] MEDS ORDERED: Cefepime HCl 2,000 MG in Water for inj. (sterile) 20 ML IVP ONE (09:01)
[2017-04-20] MEDS ORDERED: Norepinephrine 4 MG in D5% in Water 250 ML IVC SCH (09:15)
[2017-04-20] MEDS ORDERED: 0.9 % Sodium Chloride 1,000 ML ONE ×2 (09:26→22:19)
[2017-04-20] MEDS ORDERED: Vancomycin 1,250 MG in D5% in Water 250 ML IVPB ONE (09:38)
[2017-04-20] MEDS ORDERED: Lidocaine 2% Syringe 100 MG/5 ML ONE (10:17)
[2017-04-20 10:59] LABS: Basophils % 0.7 %; Eosinophils # 0.1 K/mcL (0.0-0.6); Eosinophils % 1.3 %; Hematocrit 34.9 % (35.3-44.9); Hemoglobin 10.6 g/dL (11.5-15.4); Immature Granulocytes % 0.2 % (0-4); Lymphocytes # 1.2 K/mcL (0.6-4.6); Lymphocytes % 19.5 %; Mean Corpuscular HGB Conc 30.4 g/dL (31.6-35.5); Mean Corpuscular Hemoglobin 27.8 pg (28.0-33.3); Mean Corpuscular Volume 91.6 fL (83.0-100.0); Mean Platelet Volume 10.2 fL (9.4-12.4); Monocytes # 0.4 K/mcL (0.0-1.3); Monocytes % 7.2 %; Neutrophils # 4.4 K/mcL (1.6-8.9); Platelet Count 214 K/mcL (140-400); Red Blood Count 3.81 M/mcL (3.82-4.97); Segmented Neutrophils % 71.1 %
[2017-04-20 11:10] LABS: INR 0.9; Prothrombin Time 9.5 Seconds (9.4-12.1)
[2017-04-20 11:11] LABS: Albumin 3.9 g/dL (3.5-5.7); Albumin/Globulin Ratio 1.4 (1.1-2.2); Bilirubin,Indirect 0.4 mg/dL (0.0-1.2); Bilirubin,Total 0.4 mg/dL (0.3-1.0); Calcium 9.2 mg/dL (8.6-10.3); Globulin 2.8 g/dL (2.4-3.5); Magnesium 1.9 mg/dL (1.6-2.6); Phosphorous 3.4 mg/dL (2.7-4.5); Potassium 3.9 mEq/L (3.5-5.1); Total Protein 6.7 g/dL (6.4-8.9)
[2017-04-20 11:13] LABS: Activated Partial Thrombo Time 27.4 Seconds (26.0-36.0)
[2017-04-20] MEDS ORDERED: *HR* HYDROmorphone (PF) 1 MG/ML SYRINGE IVP ONE (11:21)
[2017-04-20] MEDS: 0.9 % Sodium Chloride 1,000 ML IVC SCH ×3 (11:30→22:31)
[2017-04-20] MEDS ORDERED: Hydrocortisone Sodium Succ 100 MG/2 ML VIAL IVP ONE ×2 (11:39→22:58)
[2017-04-20 11:45] LABS: Bilirubin,Urine Negative (Negative); Blood,Urine Negative (Negative); Clarity,Urine Cloudy (Clear); Color,Urine Dark Yellow (Yellow); Glucose,Urine (UA) Normal (Normal); Ketones,Urine Negative (Negative); Leukocyte Esterase,Urine Small (Negative); Nitrite,Urine Negative (Negative); PH,Urine 5.5 pH Units (5.0-8.0); Protein,Urine Negative (Neg-Trace); Specific Gravity,Urine 1.017 (1.010-1.025); Urobilinogen,Urine Normal (Normal)
[2017-04-20 11:46] LABS: Bacteria,Urine None Seen per hpf (None-Few); RBC,Urine 0-3 per hpf (0-3); Squamous Epithelial Cell,Urine Many per lpf (None-Few)
[2017-04-20 12:00] LABS: Hyaline Casts,Urine Few per lpf (None-Few)
--- NOTE | 2017-04-20 13:23 | Pulmonology History & Physical ---
<Sandro Ramirez - Last Filed: 04/20/17 16:39> Date of Encounter: 04/20/17 Time of Encounter: 13:23 Assessment and Plan (1) Hypotension Current visit: Yes Status: Acute Patient was noted to have a systolic of 50 and arrival to the ED 2 L bolus of NS and 100 mg of hydrocortisone were administered in the emergency department with great response in blood pressure with MAP above 65 Blood pressure is now 109/99 heart rate is 70 Patient is currently taking all medications as prescribed She does admit to adequate oral intake Patient does have bilateral peripheral IVs may discontinue left intraosseous access Differential includes cardiogenic versus hypovolemic versus adrenal versus infectious At this time, we are leaning towards hypovolemic combined with possible adrenal insufficiency Pressures discontinued Infectious - Blood cultures sent, ordered resp panel and stool culture Patient did receive 1 dose of vancomycin and cefepime in the ER; we will continue Flagyl and Cefepime with recent diarrhea as well Cardiac monitoring Patient will be high risk and we will continue to monitor throughout the night. 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 Skinner in outpatient Patient was noted to have a right ventricle lead that needs to be replaced and has a generator change scheduled for 04/26/17 Cardiology was consulted for further recommendations (4) Acute kidney injury Current visit: No Status: Acute Creatinine was 1.51 on admission and previously at 1 or below Likely due to hypotension Given 2L NS in ED Encourage fluid intake Avoid nephrotoxins Continue to trend creatinine in the morning (5) Chronic diastolic (congestive) heart failure Current visit: No Status: Chronic Echocardiogram on 03/12/17 demonstrating EF 60-65% with moderate LV diastolic dysfunction with asymmetric basal septal hypertrophy. Mild TR and pulmonary hypertension. Not all narayanan were visualized but otherwise no other abnormalities No evidence of acute exacerbation Patient was previously taking Lasix when necessary 20 mg at home for edema Holding Lasix at this time (6) COPD (chronic obstructive pulmonary disease) Current visit: No Status: Chronic Patient is not oxygen dependent and is only using albuterol inhaler at home Patient is satting well on percent on room air and no respiratory distress Lungs were clear to station bilaterally with no wheezing, crackles or rales Add on DuoNeb's as needed every 8 hours Qualifiers: COPD type: chronic bronchitis Chronic bronchitis type: simple Qualified Code(s): J41.0 - Simple chronic bronchitis (7) PAF (paroxysmal atrial fibrillation) Current visit: No Status: Chronic Patient was seen on Cardizem 120 CD with Elliquis EKG reviewed and noted to have a ventricular paced rhythm, heart rate in the 60s Cardiology consultation - appreciate recommendations Given her hypotension, we will hold her cardizem for now (8) Hypertension Current visit: No Status: Acute Qualifiers: Hypertension type: essential hypertension Qualified Code(s): I10 - Essential (primary) hypertension (9) GERD (gastroesophageal reflux disease) Current visit: No Status: Acute PPI therapy Qualifiers: Esophagitis presence: esophagitis presence not specified Qualified Code(s) : K21.9 - Gastro-esophageal reflux disease without esophagitis (10) CAD (coronary artery disease) Current visit: No Status: Chronic Qualifiers: Coronary Disease-Associated Artery/Lesion type: [place] artery [place] vs. transplanted heart: creek heart Associated angina: without angina Qualified Code(s): I25.10 - Atherosclerotic heart disease of creek coronary artery without angina pectoris (11) Multiple sclerosis Current visit: No Status: Chronic Patient apparently was previously weaned off steroids regimen. Suspecting tertiary adrenal insufficiency as patient responded to hydrocortisone and fluids (12) Gout Current visit: No Status: Chronic Well-controlled at this time Qualifiers: Gout site: multiple sites Gout etiology: idiopathic Chronicity: chronic Presence of tophus: without tophus Qualified Code(s): M1A.09X0 - Idiopathic chronic gout, multiple sites, without tophus (tophi) (13) DVT prophylaxis Current visit: No Status: Acute Holding Elliquis History of Present Illness HPI: Ms. Roberts is a very pleasant 66 year old female with a past medical history of multiple sclerosis, paroxysmal atrial fibrillation, tachybradycardia syndrome status post pacemaker, obstructive coronary artery disease, hyperlipidemia, anemia, GERD, COPD, CVA, gout, hypertension and chronic diastolic congestive heart failure who presents to the [facility] emergency emergency department with a chief complaint of hypotension and lethargy. Patient reports that earlier today she attempted to walk to the bathroom for bowel movement but became profoundly lightheaded return back to her bed to lie down. At the time, patient reports that she is going was incontinent of stool after lying down. Patient then placed a blood pressure cuff so that the reading kept saying error or low. She goes on to state that she is a chronic steroid user due to her multiple sclerosis and recently was weaned. Throughout this time, she denies any chest pain, limitations, headache , loss of vision, abdominal pain, nausea, vomiting or hematochezia or melena. No recent sick contacts. Paramedics were called and found her lethargic but no appreciable blood pressure on arrival. On route to the ED, her systolic blood pressure was 50 and multiple attempts for IV access. Ultrasound were unsuccessful and ultimately required left interosseous line access. 2 L of normal saline were given along with norepinephrine. PICC line was emergency consulted for placement and after the fluid bolus, bilateral 220-gauge midline catheters were inserted with subsequent norepinephrine infusion of low-dose. Central line placement was deferred due to body habitus and improvement of her perfusion. Hydrocortisone 100 mg was administered and her map remained over 65 after administration. Initial blood work demonstrates no leukocytosis, hemoglobin 10.6 and is above baseline, coags normal, no I abdomen allergies, creatinine 1.51 previously 1.02 on 03/20/17 with lactic acid 1.4. Urine negative. Chest x-ray demonstrated mild cardiomegaly with no acute process. Given the patient's hypotension and requirement for pressor support, pulmonary/ critical care team was consulted for admission to the intensive care unit. On evaluation, blood pressure is 109/99 and patient is in no acute distress with 99 % on room air. Pressure support was discontinued. Patient was recently admitted to [facility] for atrial fibrillation with RVR and elevated troponin. Patient was discharged on 03/20/17. Cardiology was consulted and saw patient at bedside. Most recent echocardiogram was on demonstrating EF 60-65% with moderate LV diastolic dysfunction with asymmetric basal septal hypertrophy. Mild TR and pulmonary hypertension. Not all narayanan were visualized but otherwise no other abnormalities. We will admit patient to the intensive care unit for hypotension and monitor closely throughout the night. Past Med Surg Social Fam HX - Past Medical History Medical history: arthritis, atrial fibrillation, CHF, COPD, coronary artery disease, CVA, DVT, GERD, hyperlipidemia, hypertension, migraine, myocardial infarction, RA, renal disease, other Psychiatric history: no psych history - Past Surgical History Surgical History: appendectomy, colectomy, orthopedic, other, pacemaker/AICD, other - Social History Smoking Status: Never smoker Smokeless Tobacco Status: No Alcohol use: none Drug use: none - Family History Father Hx Family Cardiac Disorders: Yes Hx Family Respiratory Disorders: No Hx Family Cancer: No Hx Family GI Disorders: No Hx Family Endocrine Disorder: No Hx Family Neuromuscular Disorders: No Hx Family Neurologic Disorders: No Hx Family HEENT Disorders: No Hx Family Autoimmune Disorders: No Medications and Allergies Albuterol Sulfate [Albuterol Inhaler] 2 puff IH Q4H PRN 11/04/15 [History] Fluticasone Propionate Nasal [Flonase] 2 spray NS BID 11/04/15 [History] Lansoprazole [Prevacid] 30 mg PO DAILY #30 capsule.dr 11/12/15 [Rx] Modafinil [Provigil] 200 mg PO BID #60 tablet 11/12/15 [Rx] Pramipexole [Mirapex] 0.5 mg PO DAILY #30 tablet 11/12/15 [Rx] Simvastatin [Zocor] 20 mg PO HS #30 tablet 11/12/15 [Rx] Apixaban [Eliquis] 5 mg PO BID 03/11/17 [History] Nitroglycerin [Nitrostat] 0.4 mg SL Q5-6MIN PRN 03/11/17 [History] Oxycodone HCl/Acetaminophen [Percocet 7.5-325 mg Tablet] 1 tab PO TID PRN MDD 3 03/11/17 [History] Acetaminophen [Tylenol] 325 mg PO Q6HR PRN 03/17/17 [History] Diltiazem CD (24hr) [Cardizem CD] 120 mg PO DAILY #30 cap.er.24h 03/20/17 [Rx] Furosemide [Lasix] 20 mg PO DAILY PRN #30 tablet 03/20/17 [Rx] Baclofen [Baclofen] 1 tab PO TID PRN 04/20/17 [History] Interferon Beta-1A/Albumin [Rebif 44 Mcg/0.5 ml Syringe] 1 each IJ AD 04/20/17 [ History] Tizanidine HCl [Tizanidine HCl] 2 tab PO BID 04/20/17 [History] 3 Allergy/AdvReac Type Severity Reaction Status Date / Time mannitol [From Reclast] Allergy Hives Verified 04/20/17 11:48 zoledronic acid Allergy Hives Verified 04/20/17 11:48 [From Reclast] adhesive tape AdvReac Rash Verified 04/20/17 11:48 aspirin AdvReac Nausea Verified 04/20/17 11:48 cephalexin [From Keflex] AdvReac STOMACH Verified 04/20/17 11:48 UPSET codeine AdvReac Abdominal Verified 04/20/17 11:48 Pain Iodinated Contrast- Oral and AdvReac Hives AND Verified 04/20/17 11:48 IV Dye BREATHING ISSUES All Systems: A 10-system review of systems was performed and is negative for pertinent findings except as documented above in the HPI. - Constitutional Constitutional: no fever(s) - EENT Nose, mouth and throat: no headache(s) - Cardiovascular Cardiovascular: as per HPI, lightheadedness, no chest pain, no palpitations - Respiratory Respiratory: no cough - Gastrointestinal Gastrointestinal: no abdominal pain - Genitourinary Genitourinary: no dysuria - Integumentary Integumentary: no rash - Neurological Neurological: no confusion - Endocrine Endocrine: no palpitations Physical Examination Vital Signs: Vital Signs, Last 4 Hours Pulse Resp BP Pulse Ox 04/20/17 12:50 70 12 109/99 99 04/20/17 11:34 65 18 94/63 99 04/20/17 11:01 64 18 79/25 98 General appearance: no acute distress Eyes: nonicteric ENT: oropharynx moist Neck: supple Cardiovascular: other (ventricular paced rhythm) Gastrointestinal: normoactive bowel sounds, non-distended Integumentary: normal Extremities: no cyanosis, no edema, no clubbing Musculoskeletal: no deformities normal mental status, non-focal exam mood appropriate, affect normal Results - Laboratory Findings CBC and BMP: 04/20/17 10:46 04/20/17 10:46 PT/INR, D-dimer PT 9.5 Seconds (9.4-12.1) 04/20/17 10:46 Abnormal lab findings: Abnormal lab results RBC 3.81 M/mcL (3.82-4.97) L 04/20/17 10:46 Hgb 10.6 g/dL (11.5-15.4) L 04/20/17 10:46 Hct 34.9 % (35.3-44.9) L 04/20/17 10:46 MCH 27.8 pg (28.0-33.3) L 04/20/17 10:46 MCHC 30.4 g/dL (31.6-35.5) L 04/20/17 10:46 RDW 16.0 % (11.5-14.5) H 04/20/17 10:46 BUN 28 mg/dL (8-23) H 04/20/17 10:46 Creatinine 1.51 mg/dL (0.60-1.20) H 04/20/17 10:46 Est GFR ( Amer) 42 (> 60) L 04/20/17 10:46 Est GFR (Non-Af Amer) 34 (> 60) L 04/20/17 10:46 B-Natriuretic Peptide 122 pg/mL (Less than 100) H 04/20/17 10:46 Lipase 7 Units/L (11-82) L 04/20/17 10:46 Urine Clarity Cloudy (Clear) A 04/20/17 11:35 Ur Leukocyte Esterase Small (Negative) H 04/20/17 11:35 Urine Microscopic WBC 5-15 per hpf (0-3) H 04/20/17 11:35 Ur Squamous Epith Cells Many per lpf (None-Few) H 04/20/17 11:35 <Glenn Farrell W - Last Filed: 04/20/17 17:18> Date of Encounter: 04/20/17 History of Present Illness HPI: Ms. Roberts is a 66 year old female All Systems: A 10-system review of systems was performed and is negative for pertinent findings except as documented above in the HPI. Physical Examination Vital Signs: Vital Signs, Last 4 Hours Pulse Resp BP Pulse Ox 04/20/17 16:14 90 15 94/58 97 Results - Laboratory Findings CBC and BMP: 04/20/17 10:46 04/20/17 10:46 PT/INR, D-dimer PT 9.5 Seconds (9.4-12.1) 04/20/17 10:46 Abnormal lab findings: Abnormal lab results RBC 3.81 M/mcL (3.82-4.97) L 04/20/17 10:46 Hgb 10.6 g/dL (11.5-15.4) L 04/20/17 10:46 Hct 34.9 % (35.3-44.9) L 04/20/17 10:46 MCH 27.8 pg (28.0-33.3) L 04/20/17 10:46 MCHC 30.4 g/dL (31.6-35.5) L 04/20/17 10:46 RDW 16.0 % (11.5-14.5) H 04/20/17 10:46 BUN 28 mg/dL (8-23) H 04/20/17 10:46 Creatinine 1.51 mg/dL (0.60-1.20) H 04/20/17 10:46 Est GFR ( Amer) 42 (> 60) L 04/20/17 10:46 Est GFR (Non-Af Amer) 34 (> 60) L 04/20/17 10:46 B-Natriuretic Peptide 122 pg/mL (Less than 100) H 04/20/17 10:46 Lipase 7 Units/L (11-82) L 04/20/17 10:46 Urine Clarity Cloudy (Clear) A 04/20/17 11:35 Ur Leukocyte Esterase Small (Negative) H 04/20/17 11:35 Urine Microscopic WBC 5-15 per hpf (0-3) H 04/20/17 11:35 Ur Squamous Epith Cells Many per lpf (None-Few) H 04/20/17 11:35 - Attending Attestation I examined this patient and my medical decision-making was reviewed with the Resident Physician. I agree with the documented findings, disposition and treatment plan as described except to the extent set forth below. We independently had [id number] contact with the patient Patient seen and examined at bedside Labs, radiology, chart personally reviewed. Management was reviewed during multidisciplinary critical care rounds. DRIVE IN WAITER/WAITRESS: Awake and alert no distress Pulm: excellent oxygenation on room air Cards: Hypotension Chronotropic insuff vs vsHypovolemia possible s adrenal insuff with acute infection. History of CHF and tachy/elham syndrome with [facility] cardiology to evaluate. Hypotension has improved with IV fluids FEN-GI: ADAT monitor for diarrhea/stool sample for infection Renal: Mild ADE likely prerenal ID: cultures obtained empiric abx for abdominal source given with plan to deescalate. Heme/Onc: DVT prophylaxis given Endo: Glucose Monitored Integ/MSK: Skin Care per routine ICU Nursing Protocol to prevent ulcers. Lines: All lines examined without evidence of infection : Dispo: ICU for close monitoring given hypotension in ED requiring Vasopressors CODE: Full.
--- NOTE | 2017-04-20 13:24 | Emergency Department Note ---
Disposition Clinical Impression: Hypotension Qualifiers: Hypotension type: unspecified hypotension type Qualified Code(s): I95.9 - Hypotension, unspecified Disposition: Admitted As Inpatient Condition: Good Referrals: Addy Fraire MD [Primary Care Provider] - General Adult HPI - General Chief complaint: ED General Medical Stated complaint: hypotension Time Seen by Provider: 04/20/17 09:00 Source: patient Limitations: no limitations Nursing Notes Reviewed: Yes Vital Signs Reviewed: Yes - History of Present Illness HPI Narrative: This is a 66-year-old female with a history of A. fib and multiple sclerosis who presents with lethargy and hypotension. The paramedics found her at her house profoundly lethargic with no appreciable blood pressure. They attempted various means of obtaining a blood pressure and they could not obtain one. They were unable to get an IV on arrival. She admits that she was admitted in the past for hypotension however I cannot find records of profound hypotension only mildly soft blood pressures as low as 97 systolic at time of discharge. She has no pain in her chest, abdomen, no recent urinary symptoms. She denies nausea, vomiting, diarrhea. She has no sick or ill contacts. She is pale and lethargic. Medical decision making Profound hypotension. Systolic blood pressure of 50 on arrival. We attempted multiple IV attempts utilizing IV ultrasound. This was unsuccessful. She has no discernible extra jugular vein for cannulation. Myself and my physician anesthetic assistant attempted placement of a right femoral line but due to body habitus in patient's discomfort we cannot advance the guidewire. Subsequent attempts left IJ were made. Her right IJ was not accessible and she is contracted to the right. Her left IJ is torturous and a guidewire will not pass although I do obtain sufficient venous return on cannulation. 2 attempts were made but due to patient thrashing around in the bed and grabbing at equipment we cannot pass the guidewire. We did abort the procedure and given her refractory hypotension and lack of intravenous access and after obtaining informed consent we placed a left interosseous line. We did provide fluid bolus at this time. 2 L of normal saline were given. Norepinephrine was administered. Basic laboratory analyses were drawn after the PICC line was emergently consult for placement. After she was adequately volume resuscitated we were able to get 220 -gauge midline catheters in her arms bilaterally. We did start norepinephrine through the midline catheters which is an approved administration site at low dose. It would twice a day L to obtain central access but given habitus as well as occult impasse in the guidewire I would defer this to inpatient team. The patient has functioning access at this time Her blood pressures ultimately increased. Her mean arterial blood pressure has stabilized. Her perfusion has improved. She is mentating now appropriately. she is on chronic steroids and recently had steroids weaned. I was concerned about possible adrenal insufficiency given her chronicity of steroid use. I did administer hydrocortisone 100 mg with subsequent increase in blood pressure. Her mean arterial blood pressures are still over 65 after menstruation of hydrocortisone. I will wean the norepinephrine at this time. I discussed the case with the sustain engineer team who is requesting a cardiology consult. I will place this consult. The cardiology nurse practitioner's available at the bedside for consultation. Her EKG shows a paced rhythm with nonspecific ST segment changes. She is due for pacemaker replacement. I do not suspect her pacemaker is the cause of her hypotension. I do not suspect an infectious source at this time however her urinalysis is still pending. Her chest x-ray shows no acute findings. She has no metabolic derangements identified. CBC shows no significant leukocytosis. Lactate was checked and was normal. I would proceed with admission to the intensive care unit for possible hypotension related to adrenal insufficiency versus cardiogenic causes versus infectious causes. Discussed case with intensive care unit team. Pain Scale: 10 - Related Data Home Medications Medication Instructions Recorded Confirmed Albuterol Sulfate [Albuterol 2 puff IH Q4H PRN 11/04/15 04/20/17 Inhaler] Fluticasone Propionate Nasal 2 spray NS BID 11/04/15 04/20/17 [Flonase] Apixaban [Eliquis] 5 mg PO BID 03/11/17 04/20/17 Nitroglycerin [Nitrostat] 0.4 mg SL Q5-6MIN PRN 03/11/17 04/20/17 Oxycodone HCl/Acetaminophen 1 tab PO TID PRN MDD 3 03/11/17 04/20/17 [Percocet 7.5-325 mg Tablet] Acetaminophen [Tylenol] 325 mg PO Q6HR PRN 03/17/17 04/20/17 Baclofen [Baclofen] 1 tab PO TID PRN 04/20/17 04/20/17 Interferon Beta-1A/Albumin [Rebif 1 each IJ AD 04/20/17 04/20/17 44 Mcg/0.5 ml Syringe] Tizanidine HCl [Tizanidine HCl] 2 tab PO BID 04/20/17 04/20/17 Previous Rx's Medication Instructions Recorded Lansoprazole [Prevacid] 30 mg PO DAILY #30 capsule. 11/12/15 Modafinil [Provigil] 200 mg PO BID #60 tablet 11/12/15 Pramipexole [Mirapex] 0.5 mg PO DAILY #30 tablet 11/12/15 Simvastatin [Zocor] 20 mg PO HS #30 tablet 11/12/15 Diltiazem CD (24hr) [Cardizem CD] 120 mg PO DAILY #30 cap.er.24h 03/20/17 Furosemide [Lasix] 20 mg PO DAILY PRN #30 tablet 03/20/17 Allergies Allergy/AdvReac Type Severity Reaction Status Date / Time mannitol [From Reclast] Allergy Hives Verified 04/20/17 11:48 zoledronic acid Allergy Hives Verified 04/20/17 11:48 [From Reclast] adhesive tape AdvReac Rash Verified 04/20/17 11:48 aspirin AdvReac Nausea Verified 04/20/17 11:48 cephalexin [From Keflex] AdvReac STOMACH Verified 04/20/17 11:48 UPSET codeine AdvReac Abdominal Verified 04/20/17 11:48 Pain Iodinated Contrast- Oral and AdvReac Hives AND Verified 04/20/17 11:48 IV Dye BREATHING ISSUES All systems ED: reviewed and negative except as stated. Review of Systems: As Per HPI Past Medical History - Past Medical History Medical history: Reports: arthritis, atrial fibrillation, CHF, COPD, coronary artery disease, CVA, DVT, GERD, hyperlipidemia, hypertension, migraine, myocardial infarction, RA, renal disease, other Surgical history: Reports: appendectomy, colectomy, orthopedic, other, pacemaker /AICD, other Psychiatric history: Reports: no psych history VIDEO GAME ENGINEER history: Reports: no VIDEO GAME ENGINEER history - Social History Smoking Status: Never smoker Smokeless Tobacco Status: No Alcohol use: Reports: none Drug use: Reports: none Physical Exam - General Limitations: no limitations General appearance: alert, in no apparent distress - Head Head exam: atraumatic - Eye Eye exam: Present: normal appearance - ENT ENT exam: normal exam, normal oropharynx - Neck Neck exam: Present: normal inspection, full ROM - Other Other exam information: Exam shows pale and dry skin, Neck shows flat and vessels, no jugular venous distention Thorax is pale, lungs are clear bilaterally but diminished Cardiovascular rhythm is paced Abdomen is soft and nontender Extremities are pale, no palpable peripheral pulses Neurologic exam shows movement of all extremities, sensation is intact, reflexes checked and normal Course Vital Signs Temperature 97.8 F 04/20/17 08:58 Pulse Rate 56 04/20/17 08:58 Respiratory Rate 20 04/20/17 08:58 Blood Pressure 86/54 04/20/17 08:58 O2 Sat by Pulse Oximetry 99 04/20/17 08:58 Temperature 97.8 F 04/20/17 08:58 Pulse Rate 70 04/20/17 12:50 Respiratory Rate 12 04/20/17 12:50 Blood Pressure 109/99 04/20/17 12:50 O2 Sat by Pulse Oximetry 99 04/20/17 12:50 Oxygen Delivery Oxygen Delivery Room Air Medical Decision Making - Medical Records Medical records reviewed: Yes I reviewed the patient's medical records. - Lab Data Lab results reviewed: Yes I reviewed the patient's lab results. Result diagrams: 04/20/17 10:46 04/20/17 10:46 Lab Results 04/20/17 04/20/17 04/20/17 Range/Units 10:46 10:46 10:46 WBC 6.1 (4.3-11.1) K/mcL RBC 3.81 L (3.82-4.97) M/mcL Hgb 10.6 L (11.5-15.4) g/dL Hct 34.9 L (35.3-44.9) % MCV 91.6 (83.0-100.0) fL MCH 27.8 L (28.0-33.3) pg MCHC 30.4 L (31.6-35.5) g/dL RDW 16.0 H (11.5-14.5) % Plt Count 214 (140-400) K/mcL MPV 10.2 (9.4-12.4) fL Immature Gran % 0.2 (0-4) % Seg Neutrophils % 71.1 % Lymphocytes % 19.5 % Monocytes % 7.2 % Eosinophils % 1.3 % Basophils % 0.7 % Neutrophils # 4.4 (1.6-8.9) K/mcL Lymphocytes # 1.2 (0.6-4.6) K/mcL Monocytes # 0.4 (0.0-1.3) K/mcL Eosinophils # 0.1 (0.0-0.6) K/mcL Basophils # 0.0 (0.0-0.2) K/mcL PT 9.5 (9.4-12.1) Seconds INR 0.9 APTT 27.4 (26.0-36.0) Seconds Sodium 139 (136-145) mEq/L Potassium 3.9 (3.5-5.1) mEq/L Chloride 104 (98-107) mEq/L Carbon Dioxide 28 (23-29) mEq/L BUN 28 H (8-23) mg/dL Creatinine 1.51 H (0.60-1.20) mg/dL Est GFR ( Amer) 42 L (> 60) Est GFR (Non-Af Amer) 34 L (> 60) BUN/Creatinine Ratio 19 (6-26) Glucose 94 (70-105) mg/dL Calculated Osmolality 293 (280-300) Lactic Acid (0.5-2.2) mmol/L Calcium 9.2 (8.6-10.3) mg/dL Phosphorus 3.4 (2.7-4.5) mg/dL Magnesium 1.9 (1.6-2.6) mg/dL Total Bilirubin 0.4 (0.3-1.0) mg/dL Direct Bilirubin 0.0 (0.0-0.2) mg/dL Indirect Bilirubin 0.4 (0.0-1.2) mg/dL AST 18 (13-39) Units/L ALT 11 (7-52) Units/L Alkaline Phosphatase 100 (34-104) Units/L Troponin I (< 0.04) ng/mL B-Natriuretic Peptide (Less than 100) pg/mL Serum Total Protein 6.7 (6.4-8.9) g/dL Albumin 3.9 (3.5-5.7) g/dL Globulin 2.8 (2.4-3.5) g/dL Albumin/Globulin Ratio 1.4 (1.1-2.2) Lipase 7 L (11-82) Units/L Urine Color (Yellow) Urine Clarity (Clear) Urine pH (5.0-8.0) pH Units Ur Specific [place] (1.010-1.025) Urine Protein (Neg-Trace) mg/dL Urine Glucose (UA) (Normal) mg/dL Urine Ketones (Negative) mg/dL Urine Blood (Negative) Urine Nitrite (Negative) Urine Bilirubin (Negative) Urine Urobilinogen (Normal) mg/dL Ur Leukocyte Esterase (Negative) Urine Microscopic RBC (0-3) per hpf Urine Microscopic WBC (0-3) per hpf Ur Squamous Epith Cells (None-Few) per lpf Urine Bacteria (None-Few) per hpf Hyaline Casts (None-Few) per lpf Ur Culture Indicated? (NO) 04/20/17 04/20/17 04/20/17 Range/Units 10:46 10:46 10:46 WBC (4.3-11.1) K/mcL RBC (3.82-4.97) M/mcL Hgb (11.5-15.4) g/dL Hct (35.3-44.9) % MCV (83.0-100.0) fL MCH (28.0-33.3) pg MCHC (31.6-35.5) g/dL RDW (11.5-14.5) % Plt Count (140-400) K/mcL MPV (9.4-12.4) fL Immature Gran % (0-4) % Seg Neutrophils % % Lymphocytes % % Monocytes % % Eosinophils % % Basophils % % Neutrophils # (1.6-8.9) K/mcL Lymphocytes # (0.6-4.6) K/mcL Monocytes # (0.0-1.3) K/mcL Eosinophils # (0.0-0.6) K/mcL Basophils # (0.0-0.2) K/mcL PT (9.4-12.1) Seconds INR APTT (26.0-36.0) Seconds Sodium (136-145) mEq/L Potassium (3.5-5.1) mEq/L Chloride (98-107) mEq/L Carbon Dioxide (23-29) mEq/L BUN (8-23) mg/dL Creatinine (0.60-1.20) mg/dL Est GFR ( Amer) (> 60) Est GFR (Non-Af Amer) (> 60) BUN/Creatinine Ratio (6-26) Glucose (70-105) mg/dL Calculated Osmolality (280-300) Lactic Acid 1.4 (0.5-2.2) mmol/L Calcium (8.6-10.3) mg/dL Phosphorus (2.7-4.5) mg/dL Magnesium (1.6-2.6) mg/dL Total Bilirubin (0.3-1.0) mg/dL Direct Bilirubin (0.0-0.2) mg/dL Indirect Bilirubin (0.0-1.2) mg/dL AST (13-39) Units/L ALT (7-52) Units/L Alkaline Phosphatase (34-104) Units/L Troponin I < 0.03 (< 0.04) ng/mL B-Natriuretic Peptide 122 H (Less than 100) pg/mL Serum Total Protein (6.4-8.9) g/dL Albumin (3.5-5.7) g/dL Globulin (2.4-3.5) g/dL Albumin/Globulin Ratio (1.1-2.2) Lipase (11-82) Units/L Urine Color (Yellow) Urine Clarity (Clear) Urine pH (5.0-8.0) pH Units Ur Specific [place] (1.010-1.025) Urine Protein (Neg-Trace) mg/dL Urine Glucose (UA) (Normal) mg/dL Urine Ketones (Negative) mg/dL Urine Blood (Negative) Urine Nitrite (Negative) Urine Bilirubin (Negative) Urine Urobilinogen (Normal) mg/dL Ur Leukocyte Esterase (Negative) Urine Microscopic RBC (0-3) per hpf Urine Microscopic WBC (0-3) per hpf Ur Squamous Epith Cells (None-Few) per lpf Urine Bacteria (None-Few) per hpf Hyaline Casts (None-Few) per lpf Ur Culture Indicated? (NO) 04/20/17 Range/Units 11:35 WBC (4.3-11.1) K/mcL RBC (3.82-4.97) M/mcL Hgb (11.5-15.4) g/dL Hct (35.3-44.9) % MCV (83.0-100.0) fL MCH (28.0-33.3) pg MCHC (31.6-35.5) g/dL RDW (11.5-14.5) % Plt Count (140-400) K/mcL MPV (9.4-12.4) fL Immature Gran % (0-4) % Seg Neutrophils % % Lymphocytes % % Monocytes % % Eosinophils % % Basophils % % Neutrophils # (1.6-8.9) K/mcL Lymphocytes # (0.6-4.6) K/mcL Monocytes # (0.0-1.3) K/mcL Eosinophils # (0.0-0.6) K/mcL Basophils # (0.0-0.2) K/mcL PT (9.4-12.1) Seconds INR APTT (26.0-36.0) Seconds Sodium (136-145) mEq/L Potassium (3.5-5.1) mEq/L Chloride (98-107) mEq/L Carbon Dioxide (23-29) mEq/L BUN (8-23) mg/dL Creatinine (0.60-1.20) mg/dL Est GFR ( Amer) (> 60) Est GFR (Non-Af Amer) (> 60) BUN/Creatinine Ratio (6-26) Glucose (70-105) mg/dL Calculated Osmolality (280-300) Lactic Acid (0.5-2.2) mmol/L Calcium (8.6-10.3) mg/dL Phosphorus (2.7-4.5) mg/dL Magnesium (1.6-2.6) mg/dL Total Bilirubin (0.3-1.0) mg/dL Direct Bilirubin (0.0-0.2) mg/dL Indirect Bilirubin (0.0-1.2) mg/dL AST (13-39) Units/L ALT (7-52) Units/L Alkaline Phosphatase (34-104) Units/L Troponin I (< 0.04) ng/mL B-Natriuretic Peptide (Less than 100) pg/mL Serum Total Protein (6.4-8.9) g/dL Albumin (3.5-5.7) g/dL Globulin (2.4-3.5) g/dL Albumin/Globulin Ratio (1.1-2.2) Lipase (11-82) Units/L Urine Color Dark Yellow (Yellow) Urine Clarity Cloudy A (Clear) Urine pH 5.5 (5.0-8.0) pH Units Ur Specific [place] 1.017 (1.010-1.025) Urine Protein Negative (Neg-Trace) mg/dL Urine Glucose (UA) Normal (Normal) mg/dL Urine Ketones Negative (Negative) mg/dL Urine Blood Negative (Negative) Urine Nitrite Negative (Negative) Urine Bilirubin Negative (Negative) Urine Urobilinogen Normal (Normal) mg/dL Ur Leukocyte Esterase Small H (Negative) Urine Microscopic RBC 0-3 (0-3) per hpf Urine Microscopic WBC 5-15 H (0-3) per hpf Ur Squamous Epith Cells Many H (None-Few) per lpf Urine Bacteria None Seen (None-Few) per hpf Hyaline Casts Few (None-Few) per lpf Ur Culture Indicated? NO. (NO)
--- NOTE | 2017-04-20 13:32 | Cardiology Consult Note ---
<Mervat Montalvo - Last Filed: 04/20/17 15:32> Date of Encounter: 04/20/17 Time of Encounter: 13:00 Assessment and Plan (1) Hypotension Current Visit: No Status: Acute Per cardiology: -Admitted with profound hypotension. -BP currently 100s systolic. -Off pressors now, after IV steroid given. -DO not suspect cardiac cause of hypotension. -Management per primary service. Qualifiers: Hypotension type: unspecified hypotension type Qualified Code(s): I95.9 - Hypotension, unspecified (2) PAF (paroxysmal atrial fibrillation) Current Visit: No Status: Chronic Per cardiology: -Known history of PAF. -was on cardizem in outpatient setting. -On eliquis in outpatient setting. -Currently paced rhythm, HR 60s. -TTE 02/2017 with LVEF 60-65%, moderate diastolic dysfunction, asymmetric septal hypertrophy, mild TR, mild PH, no segmental wall motion abnormalities. -Recommend continuing home anticoagulation. Discussed with , ok to continue with gen change scheduled. (3) Pacemaker Current Visit: No Status: Chronic Per cardiology: -Known pacemaker for tachybrady syndrome. -Per previous EP notes, met [facility] 02/2016, also has RV lead that needs replaced. -Of note, patient is not pacemaker dependent. -Has generator change schedule 04/26/17. -I did discuss with Dr.John Skinner, who recommends work up for hypotension and then proceed with gen change and lead replacement as outpatient as scheduled. -Anticipate cardiology sign off after evaluation by . Proceed with outpatient generator change as scheduled. Discussion w patient/family: The assessment and plan as outlined above was discussed with the patient who expressed understanding and agreement. All questions were answered. Thank you for involving us in the care of your patient. Please call with any questions. Discussed and reviewed with and Dr.John Skinner. History of Present Illness Consult date: 04/20/17 Requesting physician: Glenn Farrell Consult reason: needs pacemaker gen change Chief complaint: "out of focus" History of present illness: Ms. Roberts is a 66 year old female with a relevant past medical history of multiple sclerosis, atrial fibrillation, tachybrady syndrome s/p pacemaker, non- obstructive CAD, diastolic CHF, hyperlipidemia, anemia, GERD, COPD, CVA, gastric ulcers. Patient presents to [facility] with complaints of feeling "out of focus." Patient states she was dizzy and her vision was not normal. States she attempted to take her BP at home and it kept reading "low." Patient then called 911. Per ER note, upon EMS arrival, they were also unable to obtain a BP. Per ER records, pateint was lethargic and profoundly hypotensive on arrival. Patient was given IV hydrocortisone, IV fluids, and vasopressors. Upon my assessment, patient is awake, alert, and oriented. Denies any current symptoms. Patient denies chest pain or shortness of breath. Past Med Surg Social Fam HX - Past Medical History Attestation: Yes The following information was validated with the patient. Source: patient, old records reviewed Medical history: arthritis, atrial fibrillation, CHF, COPD, coronary artery disease, CVA, DVT, GERD, hyperlipidemia, hypertension, migraine, myocardial infarction, RA, renal disease, other Psychiatric history: no psych history - Past Surgical History Surgical History: appendectomy, colectomy, orthopedic, other, pacemaker/AICD, other - Social History Smoking Status: Never smoker Smokeless Tobacco Status: No Alcohol use: none Drug use: none - Family History Father Hx Family Cardiac Disorders: Yes Hx Family Respiratory Disorders: No Hx Family Cancer: No Hx Family GI Disorders: No Hx Family Endocrine Disorder: No Hx Family Neuromuscular Disorders: No Hx Family Neurologic Disorders: No Hx Family HEENT Disorders: No Hx Family Autoimmune Disorders: No Medications and Allergies Albuterol Sulfate [Albuterol Inhaler] 2 puff IH Q4H PRN 11/04/15 [History] Fluticasone Propionate Nasal [Flonase] 2 spray NS BID 11/04/15 [History] Lansoprazole [Prevacid] 30 mg PO DAILY #30 capsule. 11/12/15 [Rx] Modafinil [Provigil] 200 mg PO BID #60 tablet 11/12/15 [Rx] Pramipexole [Mirapex] 0.5 mg PO DAILY #30 tablet 11/12/15 [Rx] Simvastatin [Zocor] 20 mg PO HS #30 tablet 11/12/15 [Rx] Apixaban [Eliquis] 5 mg PO BID 03/11/17 [History] Nitroglycerin [Nitrostat] 0.4 mg SL Q5-6MIN PRN 03/11/17 [History] Oxycodone HCl/Acetaminophen [Percocet 7.5-325 mg Tablet] 1 tab PO TID PRN MDD 3 03/11/17 [History] Acetaminophen [Tylenol] 325 mg PO Q6HR PRN 03/17/17 [History] Diltiazem CD (24hr) [Cardizem CD] 120 mg PO DAILY #30 cap.er.24h 03/20/17 [Rx] Furosemide [Lasix] 20 mg PO DAILY PRN #30 tablet 03/20/17 [Rx] Baclofen [Baclofen] 1 tab PO TID PRN 04/20/17 [History] Interferon Beta-1A/Albumin [Rebif 44 Mcg/0.5 ml Syringe] 1 each IJ AD 04/20/17 [ History] Tizanidine HCl [Tizanidine HCl] 2 tab PO BID 04/20/17 [History] 3 Allergy/AdvReac Type Severity Reaction Status Date / Time mannitol [From Reclast] Allergy Hives Verified 04/20/17 11:48 zoledronic acid Allergy Hives Verified 04/20/17 11:48 [From Reclast] adhesive tape AdvReac Rash Verified 04/20/17 11:48 aspirin AdvReac Nausea Verified 04/20/17 11:48 cephalexin [From Keflex] AdvReac STOMACH Verified 04/20/17 11:48 UPSET codeine AdvReac Abdominal Verified 04/20/17 11:48 Pain Iodinated Contrast- Oral and AdvReac Hives AND Verified 04/20/17 11:48 IV Dye BREATHING ISSUES All Systems Review: A 10-system review of systems was performed and is negative for pertinent findings except as documented above in the HPI. - Constitutional Constitutional: lethargy - Cardiovascular Cardiovascular: as per HPI - Neurological Neurological: dizziness Physical Examination Vital Signs, Last 4 Hours Pulse Resp BP Pulse Ox 04/20/17 12:50 70 12 109/99 99 04/20/17 11:34 65 18 94/63 99 04/20/17 11:01 64 18 79/25 98 General: Conversant, No Apparent Distress HEENT: Atraumatic, Normocephaly, Mucus Membranes Moist Neck: No JVD, Normal carotid pulses Cardiac: Reg Rate and Rhythm, Normal S1 and S2, No Murmur Lungs: Normal Breath Sounds, No Wheeze, Rales, Rhonchi Neuro: Alert and responsive, No focal deficits noted Abdomen: Soft, Non-Tender Skin: No rashes noted on visualized skin Musculoskeletal: No Chest Wall Tenderness Extremities: No Clubbing, No Cyanosis, No Edema, Normal Pulses Results 04/20/17 10:46 04/20/17 10:46 Lab Results Impressions Chest X-Ray 04/20/17 09:01 IMPRESSION: Mild cardiomegaly. No acute cardiopulmonary process. D/ / 04/20/2017 12:12:02 Dell Joy MD / [facility] Interpreting Provider: Dell Joy MD Active Medications Norepinephrine Bitartrate 4 mg (/ Dextrose) 254 mls @ 7.62 mls/hr IVC .CONT ZORAN PRN Reason: 2 MCG/MIN Stop: 10/20/17 09:16 Last Infusion: 04/20/17 13:09 Dose: 0 mcg/min, 0 mls/hr Laboratory Tests 04/12/17 04/15/17 04/20/17 12:18 15:19 10:46 Hgb 10.6 L Potassium Creatinine 1.49 H 1.11 Magnesium Troponin I 04/20/17 04/20/17 10:46 10:46 Hgb Potassium 3.9 Creatinine 1.51 H Magnesium 1.9 Troponin I < 0.03 - Imaging and Cardiology Chest Xray: report reviewed Echo: report reviewed - EKG Interpretation EKG results cardiology: personally reviewed (ECG with paced rhythm.), other Consult Discharge Plan - Plan Referrals: Addy Fraire MD [Primary Care Provider] - <Fritz Barrios - Last Filed: 04/22/17 15:55> Date of Encounter: 04/20/17 Time of Encounter: 21:00 - Attending Attestation I have personally performed a face to face evaluation on this patient. I have reviewed and agree with the care plan. History and Exam by me shows: CC: fatigue, near syncope Pt admitted with fatigue, low blood pressure, dizziness. PT initially evaluated by squad, unable to get systolic blood pressure, with history of sudden discontinuation of oral steroids, responding to IV steriods and fluid boluses. She is now awake, alert, orientated x 3, in no apparent distress. She denies chest pain, pressure, palpitations and shortness of breath. She is compfortable at rest. PE: REviewed above, agreee with findingsl IMP: 1. Adrenal crisis with sudden steroid withdrawl, has responded to IV steroid replacement. 2. Hypotension has resolved 3. Sick sinus syndrome with permenent pacemaker 4. PAF, in NSR today Rec: Resume home meds, will be available if needed. Assessment and Plan Discussion w patient/family: The assessment and plan as outlined above was discussed with the patient and/or family members who expressed understanding and agreement. All questions were answered. Thank you for involving us in the care of your patient. Please call with any questions. History of Present Illness History of present illness: Ms. Roberts is a 66 year old female All Systems Review: A 10-system review of systems was performed and is negative for pertinent findings except as documented above in the HPI. Physical Examination Vital Signs, Last 4 Hours Temp Pulse Resp BP Pulse Ox 04/22/17 15:30 98.9 F 80 16 158/95 98 04/22/17 15:00 78 04/22/17 14:00 75 16 137/86 100 04/22/17 12:00 68 18 145/98 98 Results 04/22/17 05:30 04/22/17 05:30 Lab Results 04/22/17 04/22/17 05:30 05:30 WBC 3.8 L Hgb 8.5 L Hct 28.0 L Plt Count 146 Sodium 138 Potassium 4.2 Chloride 111 H Carbon Dioxide 22 L BUN 25 H Creatinine 1.04 Glucose 168 H Calcium 8.5 L Magnesium 1.9
[2017-04-20] MEDS ORDERED: Naloxone 0.4 MG/ML INJ IVP PRN (14:31)
[2017-04-20] MEDS ORDERED: Acetaminophen 325 MG TABLET PO PRN (14:47)
[2017-04-20] MEDS ORDERED: Ipratropium/Albuterol Neb 3 ML IH PRN (15:09)
[2017-04-20] MEDS ORDERED: INTERFERON BETA SQ SCH (15:30)
[2017-04-20] MEDS ORDERED: ALBUMIN SQ SCH (15:30)
[2017-04-20] MEDS ORDERED: *HR* OxyCODONE/APAP 5/325 TABLET PO ONE (17:20)
[2017-04-20] MEDS: tiZANidine 4 MG TABLET PO SCH (20:49)
[2017-04-20] MEDS ORDERED: Apixaban 5 MG TABLET PO SCH (21:00)
[2017-04-20] MEDS: Cefepime HCl 2,000 MG in Water for inj. (sterile) 20 ML 20 ML IVP SCH (22:06)
[2017-04-20] MEDS ORDERED: 0.9 % Sodium Chloride 500 ML IVC ONE (22:14)
[2017-04-20] MEDS: MetroNIDAZOLE 500 MG/100 ML 500 MG/100 ML BAG IVPB SCH (23:15)
[2017-04-21] MEDS: 0.9 % Sodium Chloride 1,000 ML IVC SCH ×3 (00:01→09:49)
[2017-04-21 03:20] LABS: Basophils % 0.3 %; Hematocrit 29.1 % (35.3-44.9); Immature Granulocytes % 0.3 % (0-4); Lymphocytes # 0.5 K/mcL (0.6-4.6); Lymphocytes % 12.6 %; Mean Corpuscular HGB Conc 29.9 g/dL (31.6-35.5); Mean Corpuscular Hemoglobin 27.4 pg (28.0-33.3); Mean Corpuscular Volume 91.8 fL (83.0-100.0); Mean Platelet Volume 10.2 fL (9.4-12.4); Monocytes # 0.1 K/mcL (0.0-1.3); Monocytes % 2.5 %; Neutrophils # 3.4 K/mcL (1.6-8.9); Platelet Count 144 K/mcL (140-400); Red Blood Count 3.17 M/mcL (3.82-4.97); Red Cell Distribution Width 15.9 % (11.5-14.5); Segmented Neutrophils % 84.3 %
[2017-04-21 03:23] LABS: Hemoglobin 8.7 g/dL (11.5-15.4)
[2017-04-21 04:09] LABS: Calcium 8.5 mg/dL (8.6-10.3); Magnesium 1.7 mg/dL (1.6-2.6)
[2017-04-21] MEDS: Hydrocortisone Sodium Succ 100 MG/2 ML VIAL IVP SCH ×2 (06:04→14:19)
[2017-04-21] MEDS ORDERED: Potassium Phosphate 44 MEQ in 0.9 % Sodium Chloride 250 ML IVPB PRN ×2 (06:04→16:30)
--- NOTE | 2017-04-21 07:29 | Pulmonology Progress Note ---
<JamiGlenn W - Last Filed: 04/21/17 10:34> Date of Encounter: 04/21/17 Objective PUL Vital signs: Last Vital Signs Temp 98.0 F 04/21/17 07:54 Pulse 77 04/21/17 08:00 Resp 11 04/21/17 08:00 BP 122/85 04/21/17 08:00 Pulse Ox 96 04/21/17 08:00 Results - Laboratory Findings CBC and BMP: 04/21/17 03:10 04/21/17 03:10 PT/INR, D-dimer PT 9.5 Seconds (9.4-12.1) 04/20/17 10:46 Abnormal lab findings: Abnormal lab results WBC 4.0 K/mcL (4.3-11.1) L 04/21/17 03:10 RBC 3.17 M/mcL (3.82-4.97) L 04/21/17 03:10 Hgb 8.7 g/dL (11.5-15.4) L D 04/21/17 03:10 Hct 29.1 % (35.3-44.9) L 04/21/17 03:10 MCH 27.4 pg (28.0-33.3) L 04/21/17 03:10 MCHC 29.9 g/dL (31.6-35.5) L 04/21/17 03:10 RDW 15.9 % (11.5-14.5) H 04/21/17 03:10 Lymphocytes # 0.5 K/mcL (0.6-4.6) L 04/21/17 03:10 Chloride 111 mEq/L (98-107) H 04/21/17 03:10 Carbon Dioxide 22 mEq/L (23-29) L 04/21/17 03:10 BUN 27 mg/dL (8-23) H 04/21/17 03:10 Creatinine 1.44 mg/dL (0.60-1.20) H 04/21/17 03:10 Est GFR ( Amer) 44 (> 60) L 04/21/17 03:10 Est GFR (Non-Af Amer) 36 (> 60) L 04/21/17 03:10 Glucose 129 mg/dL (70-105) H 04/21/17 03:10 POC Glucose 200 (58-89) H 04/20/17 17:54 Calcium 8.5 mg/dL (8.6-10.3) L 04/21/17 03:10 B-Natriuretic Peptide 122 pg/mL (Less than 100) H 04/20/17 10:46 Lipase 7 Units/L (11-82) L 04/20/17 10:46 Urine Clarity Cloudy (Clear) A 04/20/17 11:35 Ur Leukocyte Esterase Small (Negative) H 04/20/17 11:35 Urine Microscopic WBC 5-15 per hpf (0-3) H 04/20/17 11:35 Ur Squamous Epith Cells Many per lpf (None-Few) H 04/20/17 11:35 - Clinical Findings Intake & Output: Intake & Output 04/20/17 04/21/17 04/21/17 23:59 07:59 15:59 Intake Total 340 / 340 100 / 100 240 / 240 Output Total 300 / 300 500 / 500 Balance 40 / 40 -400 / -400 240 / 240 Weight 93.1 kg Consult Discharge Plan - Plan Referrals: Addy Fraire MD [Primary Care Provider] - - Attending Attestation I examined this patient and my medical decision-making was reviewed with the Resident Physician. I agree with the documented findings, disposition and treatment plan as described except to the extent set forth below. We independently had [id number] contact with the patient Patient seen and examined at bedside Labs, radiology, chart personally reviewed. Management was reviewed during multidisciplinary critical care rounds. [employer]ATE [employer] PROGRAM COORDINATOR: No focal deficit. History of MS Pulm: Excellent oxygenation on room air Cards: Hypotension ?Adrenal insuff History of Tach/elham syndrome. Holding CCB. Cardiology has seen patient and sign/off. FEN-GI:ADAT Renal: UOP monitored ID: ON empiric ABx with plan to Stop ABx as no clear evidence of infection once prelim micro results Heme/Onc:restart NOAC for Afib Endo: Glucose Monitored cont stress dose hydrocortisone Integ/MSK: Skin Care per routine ICU Nursing Protocol to prevent ulcers. Lines: All lines examined without evidence of infection : Dispo: Stable CODE: DNAR/DNI <Sandro Ramirez - Last Filed: 04/21/17 10:44> Date of Encounter: 04/21/17 Time of Encounter: 07:28 Assessment and Plan (1) Hypotension Current Visit: Yes Status: Acute Patient was noted to have a systolic of 50 and arrival to the ED 2 L bolus of NS and 100 mg of hydrocortisone were administered in the emergency department with great response in blood pressure with MAP above 65 Patient is currently taking all medications as prescribed She does admit to adequate oral intake TSH 0.6 - June 2016 However, last night she again was found to be hypotensive with systolic 60/MAP of 45 and was given 1 L bolus and 1 dose of Solu-Cortef 100 mg with increase of systolic to the 110s. Maintenance fluids were started at 1.5. At this time, I believe the etiology is towards hypovolemic combined with possible adrenal insufficiency Infectious - Blood cultures sent, ordered resp panel and stool culture - results pending Patient did receive 1 dose of vancomycin and cefepime in the ER; continue Flagyl and Cefepime (day 2) until cultures result Cardiac monitoring Solu-Cortef 100 mg 3 times a day and titrate down over the next 24 hours back down to her by mouth regimen. D/c maintenance fluids. 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 She goes on to state that about 6 or 7 years ago, she transitioned to 4 times a week and has never stop taking this medication. See above (3) Pacemaker Current Visit: No Status: Chronic Patient had a pacemaker placed for tachybrady syndrome She follows Dr. Skinner in outpatient Patient was noted to have a right ventricle lead that needs to be replaced and has a generator change scheduled for 04/26/17 Cardiology was consulted who recommended no acute intervention but to keep outpatient appointment (4) Nckqf-uw-ejuisdl kidney injury Current Visit: No Status: Acute Creatinine 1.51 with GFR 34 on admission History of a right nephrectomy and CKD Creatinine down to 1.44 Likely due to hypotension Encourage fluid intake Avoid nephrotoxins D/c patel UA neg Continue to trend creatinine in the morning Qualifiers: Acute renal failure type: unspecified Chronic kidney disease stage: stage 3 (moderate) Qualified Code(s): N17.9 - Acute kidney failure, unspecified; N18.3 - Chronic kidney disease, stage 3 (moderate); N18.3 - Chronic kidney disease, stage 3 (moderate) (5) Chronic diastolic (congestive) heart failure Current Visit: No Status: Chronic Echocardiogram on 03/12/17 demonstrating EF 60-65% with moderate LV diastolic dysfunction with asymmetric basal septal hypertrophy. Mild TR and pulmonary hypertension. Not all narayanan were visualized but otherwise no other abnormalities No evidence of acute exacerbation and chronically complains of orthopnea and PND Patient was previously taking Lasix when necessary 20 mg at home for edema Holding Lasix at this time due to hypotension (6) COPD (chronic obstructive pulmonary disease) Current Visit: No Status: Chronic Patient is not oxygen dependent and is only using albuterol inhaler at home Patient is satting well on percent on room air and no respiratory distress Lungs were clear to station bilaterally with no wheezing, crackles or rales Add on DuoNeb's as needed every 8 hours Qualifiers: COPD type: chronic bronchitis Chronic bronchitis type: simple Qualified Code(s): J41.0 - Simple chronic bronchitis (7) PAF (paroxysmal atrial fibrillation) Current Visit: No Status: Chronic Patient was seen on Cardizem 120 CD with Ell[facility] Cardiology consultation - signed off and recommend outpatient follow-up for gen change on 04/26/17 Given her hypotension, we will hold her cardizem for now Restarting Elliquis today (8) Hypertension Current Visit: No Status: Acute Qualifiers: Hypertension type: essential hypertension Qualified Code(s): I10 - Essential (primary) hypertension (9) GERD (gastroesophageal reflux disease) Current Visit: No Status: Acute PPI therapy Qualifiers: Esophagitis presence: esophagitis presence not specified Qualified Code(s) : K21.9 - Gastro-esophageal reflux disease without esophagitis (10) CAD (coronary artery disease) Current Visit: No Status: Chronic Qualifiers: Coronary Disease-Associated Artery/Lesion type: [place] artery [place] vs. transplanted heart: [place] heart Associated angina: without angina Qualified Code(s): I25.10 - Atherosclerotic heart disease of [place] coronary artery without angina pectoris (11) Multiple sclerosis Current Visit: No Status: Chronic On admission, there was a suspicion of tertiary adrenal insufficiency as patient responded to hydrocortisone and fluids on further questioning, patient reports roughly a decade of prednisone use 20 mg per day and previously was taking it 7 days a week. She was on a state that about 6 or 7 years ago she transitioned to 4 times a week is never stop taking this medication. She additionally takes baclofen twice per day and Rebif 3 times a week. (12) Gout Current Visit: No Status: Chronic Well-controlled at this time Qualifiers: Gout site: multiple sites Gout etiology: idiopathic Chronicity: chronic Presence of tophus: without tophus Qualified Code(s): M1A.09X0 - Idiopathic chronic gout, multiple sites, without tophus (tophi) (13) History of nephrectomy, unilateral Current Visit: No Status: Chronic (14) DVT prophylaxis Current Visit: No Status: Acute Restarting Elliquis today Subjective Interval history: Patient was admitted for hypotension secondary to hypovolemia with possible adrenal insufficiency Patient is resting comfortably this morning Patient was found to be hypotensive with systolic 60/MAP of 45 and was given 1 L bolus and 1 dose of Solu-Cortef 100 mg with increase of systolic to the 110s No new complaints this morning but she is concerned about her pacemaker Chronically complains of orthopnea and PND but denies any new lower extremities edema Denies any chest pain, palpitations, nausea, vomiting, abdominal pain or GI issues Objective PUL Vital signs: Last Vital Signs Temp 97.3 F L 04/21/17 03:00 Pulse 64 04/21/17 06:01 Resp 16 04/21/17 06:01 BP 116/86 04/21/17 06:01 Pulse Ox 98 04/21/17 06:01 General appearance: no acute distress Eyes: nonicteric ENT: oropharynx moist Neck: supple Effort: normal Auscultation: bilateral: clear Cardiovascular: other (paced rhythm) Gastrointestinal: normoactive bowel sounds, non-distended Integumentary: normal Extremities: no cyanosis, no edema, no clubbing Musculoskeletal: no deformities, ROM normal normal mental status, non-focal exam mood appropriate, affect normal Results - Laboratory Findings CBC and BMP: 04/21/17 03:10 04/21/17 03:10 PT/INR, D-dimer PT 9.5 Seconds (9.4-12.1) 04/20/17 10:46 Abnormal lab findings: Abnormal lab results WBC 4.0 K/mcL (4.3-11.1) L 04/21/17 03:10 RBC 3.17 M/mcL (3.82-4.97) L 04/21/17 03:10 Hgb 8.7 g/dL (11.5-15.4) L D 04/21/17 03:10 Hct 29.1 % (35.3-44.9) L 04/21/17 03:10 MCH 27.4 pg (28.0-33.3) L 04/21/17 03:10 MCHC 29.9 g/dL (31.6-35.5) L 04/21/17 03:10 RDW 15.9 % (11.5-14.5) H 04/21/17 03:10 Lymphocytes # 0.5 K/mcL (0.6-4.6) L 04/21/17 03:10 Chloride 111 mEq/L (98-107) H 04/21/17 03:10 Carbon Dioxide 22 mEq/L (23-29) L 04/21/17 03:10 BUN 27 mg/dL (8-23) H 04/21/17 03:10 Creatinine 1.44 mg/dL (0.60-1.20) H 04/21/17 03:10 Est GFR ( Amer) 44 (> 60) L 04/21/17 03:10 Est GFR (Non-Af Amer) 36 (> 60) L 04/21/17 03:10 Glucose 129 mg/dL (70-105) H 04/21/17 03:10 POC Glucose 200 (58-89) H 04/20/17 17:54 Calcium 8.5 mg/dL (8.6-10.3) L 04/21/17 03:10 B-Natriuretic Peptide 122 pg/mL (Less than 100) H 04/20/17 10:46 Lipase 7 Units/L (11-82) L 04/20/17 10:46 Urine Clarity Cloudy (Clear) A 04/20/17 11:35 Ur Leukocyte Esterase Small (Negative) H 04/20/17 11:35 Urine Microscopic WBC 5-15 per hpf (0-3) H 04/20/17 11:35 Ur Squamous Epith Cells Many per lpf (None-Few) H 04/20/17 11:35 - Clinical Findings Intake & Output: Intake & Output 04/20/17 04/20/17 04/21/17 15:59 23:59 07:59 Intake Total 340 / 340 100 / 100 Output Total 300 / 300 250 / 250 Balance 40 / 40 -150 / -150 Weight 93.1 kg
[2017-04-21] MEDS: tiZANidine 4 MG TABLET PO SCH ×2 (07:40→20:40)
[2017-04-21] MEDS: MetroNIDAZOLE 500 MG/100 ML 500 MG/100 ML BAG IVPB SCH ×2 (07:40→15:18)
--- NOTE | 2017-04-21 08:22 | Electrocardiograph Report ---
[address] [place] [address] Test Date: 2017-04-20 Pat Name: Rocío Roberts Department: 104 Room: 11 Gender: F [employer] Investigator: TIERA : 1950 Requested By: Christopher Siegel Order Number: [id number] Reading MD: Grey Castellano MD Measurements Intervals [place] Rate: 65 P: [place]: 0 QRS: -76 QRSD: 150 T: 90 QT: 496 QTc: 507 Interpretive Statements ELECTRONIC VENTRICULAR PACEMAKER Electronically Signed On 04-21-2017 8:20:43 EST by Grey Castellano MD
[2017-04-21] MEDS ORDERED: Apixaban 5 MG TABLET PO SCH (10:45)
[2017-04-21] MEDS: Cefepime HCl 2,000 MG in Water for inj. (sterile) 20 ML 20 ML IVP SCH (10:50)
[2017-04-21] MEDS ORDERED: *HR* OxyCODONE/APAP 5/325 TABLET PO ONE (15:48)
[2017-04-21] MEDS ORDERED: Hydrocortisone Sodium Succ 100 MG/2 ML VIAL IVP SCH (16:11)
[2017-04-21] MEDS ORDERED: Ipratropium/Albuterol Neb 3 ML IH PRN (16:30)
[2017-04-21] MEDS ORDERED: Naloxone 0.4 MG/ML INJ IVP PRN (16:30)
[2017-04-21] MEDS ORDERED: Acetaminophen 325 MG TABLET PO PRN (16:30)
[2017-04-21] MEDS: Apixaban 5 MG TABLET PO SCH (20:40)
[2017-04-21] MEDS ORDERED: Cefepime HCl 2,000 MG in Water for inj. (sterile) 20 ML 20 ML IVP SCH (23:00)
[2017-04-22] MEDS ORDERED: MetroNIDAZOLE 500 MG/100 ML 500 MG/100 ML BAG IVPB SCH
[2017-04-22] MEDS ORDERED: Hydrocortisone Sodium Succ 100 MG/2 ML VIAL IVP SCH ×2 (00:11→07:10)
[2017-04-22] MEDS: *HR* OxyCODONE/APAP 7.5/325 TABLET PO PRN ×3 (02:33→20:23)
[2017-04-22 05:40] LABS: Basophils % 0.3 %; Hemoglobin 8.5 g/dL (11.5-15.4); Lymphocytes # 0.5 K/mcL (0.6-4.6); Lymphocytes % 13.2 %; Mean Corpuscular HGB Conc 30.4 g/dL (31.6-35.5); Mean Corpuscular Hemoglobin 27.3 pg (28.0-33.3); Mean Platelet Volume 10.1 fL (9.4-12.4); Monocytes # 0.1 K/mcL (0.0-1.3); Monocytes % 3.7 %; Neutrophils # 3.1 K/mcL (1.6-8.9); Platelet Count 146 K/mcL (140-400); Red Blood Count 3.11 M/mcL (3.82-4.97); Red Cell Distribution Width 16.1 % (11.5-14.5); Segmented Neutrophils % 82.8 %
[2017-04-22 06:05] LABS: BUN/Creatinine Ratio 24 (6-26); Blood Urea Nitrogen 25 mg/dL (8-23); Calcium 8.5 mg/dL (8.6-10.3); Carbon Dioxide 22 mEq/L (23-29); Chloride 111 mEq/L (98-107); Glucose 168 mg/dL (70-105); Magnesium 1.9 mg/dL (1.6-2.6); Osmolality,Calculated 294 (280-300); Potassium 4.2 mEq/L (3.5-5.1); Sodium 138 mEq/L (136-145); eGFR For African Americans > 60 (> 60); eGFR For Non-African Americans 53 (> 60)
--- NOTE | 2017-04-22 07:22 | Pulmonology Progress Note ---
<AnnaalyxGlenn W - Last Filed: 04/22/17 10:29> Date of Encounter: 04/22/17 Objective PUL Vital signs: Last Vital Signs Temp 98.8 F 04/22/17 08:37 Pulse 83 04/22/17 08:00 Resp 18 04/22/17 08:00 BP 167/97 04/22/17 08:00 Pulse Ox 98 04/22/17 08:00 Results - Laboratory Findings CBC and BMP: 04/22/17 05:30 04/22/17 05:30 PT/INR, D-dimer PT 9.5 Seconds (9.4-12.1) 04/20/17 10:46 Abnormal lab findings: Abnormal lab results WBC 3.8 K/mcL (4.3-11.1) L 04/22/17 05:30 RBC 3.11 M/mcL (3.82-4.97) L 04/22/17 05:30 Hgb 8.5 g/dL (11.5-15.4) L 04/22/17 05:30 Hct 28.0 % (35.3-44.9) L 04/22/17 05:30 MCH 27.3 pg (28.0-33.3) L 04/22/17 05:30 MCHC 30.4 g/dL (31.6-35.5) L 04/22/17 05:30 RDW 16.1 % (11.5-14.5) H 04/22/17 05:30 Lymphocytes # 0.5 K/mcL (0.6-4.6) L 04/22/17 05:30 Chloride 111 mEq/L (98-107) H 04/22/17 05:30 Carbon Dioxide 22 mEq/L (23-29) L 04/22/17 05:30 BUN 25 mg/dL (8-23) H 04/22/17 05:30 Est GFR (Non-Af Amer) 53 (> 60) L 04/22/17 05:30 Glucose 168 mg/dL (70-105) H 04/22/17 05:30 POC Glucose 270 (58-89) H 04/21/17 11:46 Calcium 8.5 mg/dL (8.6-10.3) L 04/22/17 05:30 B-Natriuretic Peptide 122 pg/mL (Less than 100) H 04/20/17 10:46 Lipase 7 Units/L (11-82) L 04/20/17 10:46 Urine Clarity Cloudy (Clear) A 04/20/17 11:35 Ur Leukocyte Esterase Small (Negative) H 04/20/17 11:35 Urine Microscopic WBC 5-15 per hpf (0-3) H 04/20/17 11:35 Ur Squamous Epith Cells Many per lpf (None-Few) H 04/20/17 11:35 - Clinical Findings Intake & Output: Intake & Output 04/21/17 04/22/17 04/22/17 23:59 07:59 15:59 Intake Total 320 / 320 480 / 480 720 / 720 Output Total 300 / 300 Balance 320 / 320 480 / 480 420 / 420 Weight 95.7 kg 96 kg Consult Discharge Plan - Plan Referrals: Addy Fraire MD [Primary Care Provider] - - Attending Attestation I examined this patient and my medical decision-making was reviewed with the Resident Physician. I agree with the documented findings, disposition and treatment plan as described except to the extent set forth below. We independently had [id number] contact with the patient Patient seen and examined at bedside Labs, radiology, chart personally reviewed. Management was reviewed during multidisciplinary critical care rounds. BP stable.restart lower dose of CCB Resume home prednisone Stop ABx. Cont NOAC for Afib. PT/OT Delirium Precautions. Pending Tele Bed. <JamesSandro - Last Filed: 04/22/17 11:13> Date of Encounter: 04/22/17 Time of Encounter: 07:19 Assessment and Plan (1) Hypotension Current Visit: Yes Status: Acute Blood pressures have been stable over the last 24 hours At this time, I believe the etiology is towards hypovolemic combined with possible adrenal insufficiency Infectious - Blood cultures negative; discontinuing Flagyl and cefepime today Rest heart panel and stool cultures pending Cardiac monitoring Solu-Cortef down to 25 mg today and will transition to prednisone 20 mg per day Transfer to telemetry bed has been ordered, pending availability Qualifiers: Hypotension type: unspecified hypotension type Qualified Code(s): I95.9 - Hypotension, unspecified (2) Adrenal insufficiency due to steroid withdrawal Current Visit: Yes Status: Suspected Patient has a history of multiple sclerosis On admission, there was a suspicion of tertiary adrenal insufficiency as patient responded to hydrocortisone and fluids on further questioning, patient reports roughly a decade of prednisone use 20 mg per day and previously was taking it 7 days a week. She goes on to state that about 6 or 7 years ago, she transitioned to 4 times a week and has never stop taking this medication. See above (3) Pacemaker Current Visit: No Status: Chronic Patient had a pacemaker placed for tachybrady syndrome She follows Dr. Skinner in outpatient Patient was noted to have a right ventricle lead that needs to be replaced and has a generator change scheduled for 04/26/17 Cardiology was consulted who recommended no acute intervention but to keep outpatient appointment (4) Wjsjd-fz-mseienn kidney injury Current Visit: No Status: Acute Creatinine 1.51 with GFR 34 on admission History of a right nephrectomy and CKD Creatinine down to 1.04 Encourage fluid intake Avoid nephrotoxins Continue to trend creatinine in the morning Qualifiers: Acute renal failure type: unspecified Chronic kidney disease stage: stage 3 (moderate) Qualified Code(s): N17.9 - Acute kidney failure, unspecified; N18.3 - Chronic kidney disease, stage 3 (moderate); N18.3 - Chronic kidney disease, stage 3 (moderate) (5) Chronic diastolic (congestive) heart failure Current Visit: No Status: Chronic Echocardiogram on 03/12/17 demonstrating EF 60-65% with moderate LV diastolic dysfunction with asymmetric basal septal hypertrophy. Mild TR and pulmonary hypertension. Not all narayanan were visualized but otherwise no other abnormalities No evidence of acute exacerbation and chronically complains of orthopnea and PND Restarting Lasix 20 mg qd per home dosing for edema (6) COPD (chronic obstructive pulmonary disease) Current Visit: No Status: Chronic Patient is not oxygen dependent and is only using albuterol inhaler at home Patient is satting well on percent on room air and no respiratory distress Lungs were clear to station bilaterally with no wheezing, crackles or rales Add on DuoNeb's as needed every 8 hours Qualifiers: COPD type: chronic bronchitis Chronic bronchitis type: simple Qualified Code(s): J41.0 - Simple chronic bronchitis (7) PAF (paroxysmal atrial fibrillation) Current Visit: No Status: Chronic Home regimen - Cardizem 120 CD with [facility] Cardiology consultation - signed off and recommend outpatient follow-up for gen change on 04/26/17 Continue elliquis and will challenge with low dose cardizem today (8) Hypertension Current Visit: No Status: Acute Trial CCB back today. BP stable Qualifiers: Hypertension type: essential hypertension Qualified Code(s): I10 - Essential (primary) hypertension (9) GERD (gastroesophageal reflux disease) Current Visit: No Status: Acute PPI therapy Qualifiers: Esophagitis presence: esophagitis presence not specified Qualified Code(s) : K21.9 - Gastro-esophageal reflux disease without esophagitis (10) CAD (coronary artery disease) Current Visit: No Status: Chronic Qualifiers: Coronary Disease-Associated Artery/Lesion type: [place] artery [place] vs. transplanted heart: [place] heart Associated angina: without angina Qualified Code(s): I25.10 - Atherosclerotic heart disease of [place] coronary artery without angina pectoris (11) Multiple sclerosis Current Visit: No Status: Chronic On admission, there was a suspicion of tertiary adrenal insufficiency as patient responded to hydrocortisone and fluids on further questioning, patient reports roughly a decade of prednisone use 20 mg per day and previously was taking it 7 days a week. She was on a state that about 6 or 7 years ago she transitioned to 4 times a week is never stop taking this medication. She additionally takes baclofen twice per day and Rebif 3 times a week. (12) Gout Current Visit: No Status: Chronic Well-controlled at this time Qualifiers: Gout site: multiple sites Gout etiology: idiopathic Chronicity: chronic Presence of tophus: without tophus Qualified Code(s): M1A.09X0 - Idiopathic chronic gout, multiple sites, without tophus (tophi) (13) History of nephrectomy, unilateral Current Visit: No Status: Chronic (14) DVT prophylaxis Current Visit: No Status: Acute [facility] Subjective Interval history: Patient was admitted for hypotension secondary to hypovolemia with possible adrenal insufficiency Patient is resting comfortably this morning Blood pressure was stable overnight No new complaints this morning Denies any chest pain, palpitations, nausea, vomiting, abdominal pain or GI issues Objective PUL Vital signs: Last Vital Signs Temp 98.5 F 04/22/17 05:04 Pulse 73 04/22/17 06:00 Resp 12 04/22/17 06:00 BP 115/71 04/22/17 04:00 Pulse Ox 98 04/22/17 06:00 General appearance: no acute distress Eyes: nonicteric ENT: oropharynx moist Neck: supple Effort: normal Auscultation: bilateral: clear Cardiovascular: regular rate and rhythm Gastrointestinal: normoactive bowel sounds, non-distended Integumentary: normal Extremities: no cyanosis, no edema, no clubbing Musculoskeletal: no deformities, ROM normal normal mental status, non-focal exam mood appropriate, affect normal Results - Laboratory Findings CBC and BMP: 04/22/17 05:30 04/22/17 05:30 PT/INR, D-dimer PT 9.5 Seconds (9.4-12.1) 04/20/17 10:46 Abnormal lab findings: Abnormal lab results WBC 3.8 K/mcL (4.3-11.1) L 04/22/17 05:30 RBC 3.11 M/mcL (3.82-4.97) L 04/22/17 05:30 Hgb 8.5 g/dL (11.5-15.4) L 04/22/17 05:30 Hct 28.0 % (35.3-44.9) L 04/22/17 05:30 MCH 27.3 pg (28.0-33.3) L 04/22/17 05:30 MCHC 30.4 g/dL (31.6-35.5) L 04/22/17 05:30 RDW 16.1 % (11.5-14.5) H 04/22/17 05:30 Lymphocytes # 0.5 K/mcL (0.6-4.6) L 04/22/17 05:30 Chloride 111 mEq/L (98-107) H 04/22/17 05:30 Carbon Dioxide 22 mEq/L (23-29) L 04/22/17 05:30 BUN 25 mg/dL (8-23) H 04/22/17 05:30 Est GFR (Non-Af Amer) 53 (> 60) L 04/22/17 05:30 Glucose 168 mg/dL (70-105) H 04/22/17 05:30 POC Glucose 270 (58-89) H 04/21/17 11:46 Calcium 8.5 mg/dL (8.6-10.3) L 04/22/17 05:30 B-Natriuretic Peptide 122 pg/mL (Less than 100) H 04/20/17 10:46 Lipase 7 Units/L (11-82) L 04/20/17 10:46 Urine Clarity Cloudy (Clear) A 04/20/17 11:35 Ur Leukocyte Esterase Small (Negative) H 04/20/17 11:35 Urine Microscopic WBC 5-15 per hpf (0-3) H 04/20/17 11:35 Ur Squamous Epith Cells Many per lpf (None-Few) H 04/20/17 11:35 - Clinical Findings Intake & Output: Intake & Output 04/21/17 04/21/17 04/22/17 15:59 23:59 07:59 Intake Total 360 / 360 320 / 320 480 / 480 Output Total 300 / 300 Balance 60 / 60 320 / 320 480 / 480 Weight 93.1 kg 95.7 kg
[2017-04-22] MEDS: tiZANidine 4 MG TABLET PO SCH ×2 (08:02→20:26)
[2017-04-22] MEDS: Apixaban 5 MG TABLET PO SCH ×2 (08:02→20:24)
[2017-04-22] MEDS: Furosemide 20 MG TABLET PO SCH ×2 (08:29→08:32)
[2017-04-22] MEDS: predniSONE 20 MG TABLET PO SCH (11:13)
[2017-04-23] MEDS: *HR* OxyCODONE/APAP 7.5/325 TABLET PO PRN ×3 (08:44→20:29)
[2017-04-23] MEDS: tiZANidine 4 MG TABLET PO SCH ×2 (08:44→20:30)
[2017-04-23] MEDS: Furosemide 20 MG TABLET PO SCH (08:45)
[2017-04-23] MEDS: predniSONE 20 MG TABLET PO SCH (08:45)
[2017-04-23] MEDS: Apixaban 5 MG TABLET PO SCH ×2 (08:45→20:30)
[2017-04-23] MEDS ORDERED: predniSONE 20 MG TABLET PO SCH (09:00)
--- NOTE | 2017-04-23 17:01 | Internal Med Progress Note ---
Date of Encounter: 04/23/17 Time of Encounter: 16:56 - Assessment and plan (1) Hypotension Current Visit: No Status: Acute Assessment and plan: Due to adrenal insufficiency resolved cont tapering steroids currently on Prednisone 20mg PO daily cont close monitoring Pt is still high risk for shock , need close monitoring..Cont on tele for now Qualifiers: Hypotension type: unspecified hypotension type Qualified Code(s): I95.9 - Hypotension, unspecified (2) Adrenal insufficiency due to steroid withdrawal Current Visit: Yes Status: Suspected (3) Bbvee-wf-vqwvrap kidney injury Current Visit: No Status: Acute Assessment and plan: due to hypotension / hypovolemia improved Qualifiers: Acute renal failure type: unspecified Chronic kidney disease stage: stage 3 (moderate) Qualified Code(s): N17.9 - Acute kidney failure, unspecified; N18.3 - Chronic kidney disease, stage 3 (moderate); N18.3 - Chronic kidney disease, stage 3 (moderate) (4) PAF (paroxysmal atrial fibrillation) Current Visit: No Status: Chronic Assessment and plan: Rate controlled with Cardizem on Elliquis for anti coag (5) GERD (gastroesophageal reflux disease) Current Visit: No Status: Acute Assessment and plan: on ppi Qualifiers: Esophagitis presence: esophagitis presence not specified Qualified Code(s) : K21.9 - Gastro-esophageal reflux disease without esophagitis (6) COPD (chronic obstructive pulmonary disease) Current Visit: No Status: Chronic Assessment and plan: not in exacerbation cont duoneb + O2 Qualifiers: COPD type: chronic bronchitis Chronic bronchitis type: simple Qualified Code(s): J41.0 - Simple chronic bronchitis (7) Chronic diastolic (congestive) heart failure Current Visit: No Status: Chronic Assessment and plan: not in exacerbation Will cont Lasix PO + Statin (8) Tachy-elham syndrome Current Visit: No Status: Acute Assessment and plan: s/p Pacemaker Patient was noted to have a right ventricle lead that needs to be replaced and has a generator change scheduled for 04/26/17 Cardiology on board.. scheduled for the procedure on Wednesday (9) Chronic kidney disease, stage 3 Current Visit: No Status: Chronic - Subjective Interval history: Ms. Roberts is a 66 year old female with a relevant past medical history of multiple sclerosis, atrial fibrillation, tachybrady syndrome s/p pacemaker, non- obstructive CAD, diastolic CHF, hyperlipidemia, anemia, GERD, COPD, CVA, gastric ulcers. Patient presents to [facility] with complaints of feeling "out of focus." Patient states she was dizzy and her vision was not normal. States she attempted to take her BP at home and it kept reading "low." Patient then called 911. Per ER note, upon EMS arrival, they were also unable to obtain a BP. Per ER records, pateint was lethargic and profoundly hypotensive on arrival. Patient was admitted into ICU and started her on high dose IV hydrocortisone, IV fluids, and vasopressors. Now her vitals imporved, pt was transferred to [facility] for further care. Pt was seen and examined at bed side, denied any CP, does c/o feeling windy, SOB and mild BEAR. She is alert, awake and O x 3 - Constitutional Vitals: Temp Pulse Resp BP Pulse Ox 97.9 F 80 16 167/103 95 04/23/17 16:05 04/23/17 16:05 04/23/17 16:05 04/23/17 16:05 04/23/17 16:05 General appearance: Present: A&O X 3, no acute distress, answers questions appropriately - Head Head exam: Present: atraumatic, normal inspection - Neck Neck exam general surgery: Present: supple - Respiratory Respiratory exam: Present: decreased breath sounds, wheezes (mild). Absent: rales, respiratory distress, rhonchi - Cardiovascular Cardiovascular exam: Present: +S1, +S2. Absent: systolic murmur, tachycardia - GI/Abdominal GI/Abdominal exam: Present: normal bowel sounds, soft. Absent: rebound, rigid, tenderness - Extremities Exam Extremities exam: Present: pedal edema (trace). Absent: calf tenderness, tenderness - Back Exam Back exam: Absent: CVA tenderness (L), CVA tenderness (R) - Neurological Exam Neurological exam: Present: alert, oriented X3 - Psychiatric Psychiatric exam: Present: normal affect, normal mood Internal Medicine: Result - Labs CBC & Chem 7: 04/22/17 05:30 04/22/17 05:30 - ABG Interpretation ABG results: PT/INR, D-dimer PT 9.5 Seconds (9.4-12.1) 04/20/17 10:46 Consult Discharge Plan - Plan Referrals: Addy Fraire MD [Primary Care Provider] -
[2017-04-24] MEDS: *HR* OxyCODONE/APAP 7.5/325 TABLET PO PRN ×2 (05:56→18:31)
[2017-04-24 06:46] LABS: BUN/Creatinine Ratio 22 (6-26); Blood Urea Nitrogen 21 mg/dL (8-23); Calcium 8.9 mg/dL (8.6-10.3); Carbon Dioxide 27 mEq/L (23-29); Chloride 106 mEq/L (98-107); Glucose 99 mg/dL (70-105); Magnesium 1.8 mg/dL (1.6-2.6); Osmolality,Calculated 293 (280-300); Potassium 3.8 mEq/L (3.5-5.1); Sodium 140 mEq/L (136-145); eGFR For African Americans > 60 (> 60); eGFR For Non-African Americans 57 (> 60)
[2017-04-24] MEDS: predniSONE 20 MG TABLET PO SCH (09:37)
[2017-04-24] MEDS: tiZANidine 4 MG TABLET PO SCH ×3 (09:37→21:52)
[2017-04-24] MEDS: Furosemide 20 MG TABLET PO SCH (09:38)
[2017-04-24] MEDS: Apixaban 5 MG TABLET PO SCH (09:38)
--- NOTE | 2017-04-24 13:44 | Internal Med Progress Note ---
Date of Encounter: 04/24/17 Time of Encounter: 11:00 - Assessment and plan (1) Hypotension Current Visit: No Status: Acute Assessment and plan: Due to adrenal insufficiency resolved cont tapering steroids currently on Prednisone 20mg PO daily cont close monitoring Pt is still high risk for shock..Her BP still keep fluctuating, this morning BP went down to 81/59 . Need close monitoring..Cont on tele for now Qualifiers: Hypotension type: unspecified hypotension type Qualified Code(s): I95.9 - Hypotension, unspecified (2) Adrenal insufficiency due to steroid withdrawal Current Visit: Yes Status: Suspected (3) Kkiox-jr-eykptpr kidney injury Current Visit: No Status: Acute Assessment and plan: due to hypotension / hypovolemia improved Qualifiers: Acute renal failure type: unspecified Chronic kidney disease stage: stage 2 (mild) Qualified Code(s): N17.9 - Acute kidney failure, unspecified; N18.2 - Chronic kidney disease, stage 2 (mild); N18.2 - Chronic kidney disease, stage 2 (mild) (4) PAF (paroxysmal atrial fibrillation) Current Visit: No Status: Chronic Assessment and plan: Rate controlled with Cardizem on Elliquis for anti coag Will hold her Eliquis in AM due to her Pacemaker surgery on Wednesday (5) GERD (gastroesophageal reflux disease) Current Visit: No Status: Acute Assessment and plan: on ppi Qualifiers: Esophagitis presence: esophagitis presence not specified Qualified Code(s) : K21.9 - Gastro-esophageal reflux disease without esophagitis (6) COPD (chronic obstructive pulmonary disease) Current Visit: No Status: Chronic Assessment and plan: not in exacerbation cont duoneb + O2 Qualifiers: COPD type: chronic bronchitis Chronic bronchitis type: simple Qualified Code(s): J41.0 - Simple chronic bronchitis (7) Chronic diastolic (congestive) heart failure Current Visit: No Status: Chronic Assessment and plan: not in exacerbation Will cont Lasix PO + Statin (8) Tachy-elham syndrome Current Visit: No Status: Acute Assessment and plan: s/p Pacemaker Patient was noted to have a right ventricle lead that needs to be replaced and has a generator change scheduled for 04/26/17 Cardiology on board.. scheduled for the procedure on Wednesday Will hold Eliquis from tomorrow (9) Chronic kidney disease, stage 3 Current Visit: No Status: Chronic - Subjective Interval history: Ms. Roberts is a 66 year old female with a relevant past medical history of multiple sclerosis, atrial fibrillation, tachybrady syndrome s/p pacemaker, non- obstructive CAD, diastolic CHF, hyperlipidemia, anemia, GERD, COPD, CVA, gastric ulcers. Patient presents to [facility] with complaints of feeling "out of focus." Patient states she was dizzy and her vision was not normal. States she attempted to take her BP at home and it kept reading "low." Patient then called 911. Per ER note, upon EMS arrival, they were also unable to obtain a BP. Per ER records, pateint was lethargic and profoundly hypotensive on arrival. Patient was admitted into ICU and started her on high dose IV hydrocortisone, IV fluids, and vasopressors. Now her vitals imporved, pt was transferred to [facility] for further care. Pt was seen and examined at bed side. She denied any new complaints. She denied any CP , her SOB also better today. She is alert, awake and O x 3 - Constitutional Vitals: Temp Pulse Resp BP Pulse Ox 98.1 F 65 16 119/87 97 04/24/17 11:05 04/24/17 11:05 04/24/17 11:05 04/24/17 13:02 04/24/17 11:05 General appearance: Present: A&O X 3, no acute distress, answers questions appropriately - Head Head exam: Present: atraumatic, normal inspection - Neck Neck exam general surgery: Present: supple - Respiratory Respiratory exam: Present: decreased breath sounds. Absent: rales, respiratory distress, rhonchi, wheezes - Cardiovascular Cardiovascular exam: Present: RRR, +S1, +S2. Absent: tachycardia - GI/Abdominal GI/Abdominal exam: Present: normal bowel sounds, soft. Absent: rebound, rigid, tenderness - Extremities Exam Extremities exam: Absent: calf tenderness, pedal edema, tenderness - Back Exam Back exam: Absent: CVA tenderness (L), CVA tenderness (R) Internal Medicine: Result - Labs CBC & Chem 7: 04/22/17 05:30 04/24/17 06:08 Labs: BMP 04/24/17 06:08 Sodium 140 Potassium 3.8 Chloride 106 Carbon Dioxide 27 BUN 21 Creatinine 0.97 Glucose 99 Calcium 8.9 - ABG Interpretation ABG results: PT/INR, D-dimer PT 9.5 Seconds (9.4-12.1) 04/20/17 10:46 Consult Discharge Plan - Plan Referrals: Addy Fraire MD [Primary Care Provider] -
[2017-04-25] MEDS: *HR* OxyCODONE/APAP 7.5/325 TABLET PO PRN ×3 (00:16→21:43)
[2017-04-25] MEDS: Furosemide 20 MG TABLET PO SCH (10:13)
[2017-04-25] MEDS: tiZANidine 4 MG TABLET PO SCH ×2 (10:13→21:43)
[2017-04-25] MEDS: predniSONE 20 MG TABLET PO SCH (10:13)
--- NOTE | 2017-04-25 10:58 | Internal Med Progress Note ---
Date of Encounter: 04/25/17 Time of Encounter: 10:30 - Assessment and plan (1) Hypotension Current Visit: No Status: Acute Assessment and plan: Due to adrenal insufficiency resolved cont tapering steroids.. Prednisone 10mg in AM cont close monitoring Pt is still high risk for shock..Her BP / HR still keep fluctuating, needed iV Cardizem x 1 dose this morning. Cont close monitoring..Cont on tele for now Qualifiers: Hypotension type: unspecified hypotension type Qualified Code(s): I95.9 - Hypotension, unspecified (2) Tachy-elham syndrome Current Visit: No Status: Acute Assessment and plan: s/p Pacemaker Patient was noted to have a right ventricle lead that needs to be replaced and has a generator change scheduled for 04/26/17 Cardiology on board.. scheduled for the procedure on Wednesday Will hold Eliquis from tomorrow (3) Adrenal insufficiency due to steroid withdrawal Current Visit: Yes Status: Suspected (4) Eolcp-gk-ltumaph kidney injury Current Visit: No Status: Acute Assessment and plan: due to hypotension / hypovolemia improved Qualifiers: Acute renal failure type: unspecified Chronic kidney disease stage: stage 2 (mild) Qualified Code(s): N17.9 - Acute kidney failure, unspecified; N18.2 - Chronic kidney disease, stage 2 (mild); N18.2 - Chronic kidney disease, stage 2 (mild) (5) PAF (paroxysmal atrial fibrillation) Current Visit: No Status: Chronic Assessment and plan: Rate controlled with Cardizem now will use Cardizem IV PRN if she develops RVR Held Elliquis for Pacemaker surgery in AM (6) GERD (gastroesophageal reflux disease) Current Visit: No Status: Acute Assessment and plan: on ppi Qualifiers: Esophagitis presence: esophagitis presence not specified Qualified Code(s) : K21.9 - Gastro-esophageal reflux disease without esophagitis (7) COPD (chronic obstructive pulmonary disease) Current Visit: No Status: Chronic Assessment and plan: not in exacerbation cont duoneb + O2 Qualifiers: COPD type: chronic bronchitis Chronic bronchitis type: simple Qualified Code(s): J41.0 - Simple chronic bronchitis (8) Chronic diastolic (congestive) heart failure Current Visit: No Status: Chronic Assessment and plan: not in exacerbation will hold Lasix in AM since she is going to be NPO tonight (9) Chronic kidney disease, stage 3 Current Visit: No Status: Chronic - Subjective Interval history: Ms. Roberts is a 66 year old female with a relevant past medical history of multiple sclerosis, atrial fibrillation, tachybrady syndrome s/p pacemaker, non- obstructive CAD, diastolic CHF, hyperlipidemia, anemia, GERD, COPD, CVA, gastric ulcers. Patient presents to [facility] with complaints of feeling "out of focus." Patient states she was dizzy and her vision was not normal. States she attempted to take her BP at home and it kept reading "low." Patient then called 911. Per ER note, upon EMS arrival, they were also unable to obtain a BP. Per ER records, pateint was lethargic and profoundly hypotensive on arrival. Patient was admitted into ICU and started her on high dose IV hydrocortisone, IV fluids, and vasopressors. Now her vitals imporved, pt was transferred to [facility] for further care. Pt was seen and examined at bed side. She denied any new complaints. She denied any CP , her SOB also better today. She is alert, awake and O x 3. Pt still having fluctuations in her HR..she went into A fib with RVR this morning, after 1 dose of Cardizem 10 IV, now her HR well controlled. - Constitutional Vitals: Temp Pulse Resp BP Pulse Ox 97.8 F 66 17 145/67 96 04/25/17 07:09 04/25/17 10:19 04/25/17 07:09 04/25/17 10:19 04/25/17 07:09 General appearance: Present: A&O X 3, no acute distress, answers questions appropriately - Head Head exam: Present: atraumatic, normal inspection - Neck Neck exam general surgery: Present: supple - Respiratory Respiratory exam: Present: decreased breath sounds. Absent: rales, respiratory distress, rhonchi, wheezes - Cardiovascular Cardiovascular exam: Present: irregular rhythm, +S1, +S2. Absent: systolic murmur, tachycardia - GI/Abdominal GI/Abdominal exam: Present: normal bowel sounds, soft. Absent: rebound, rigid, tenderness - Extremities Exam Extremities exam: Absent: calf tenderness, pedal edema, tenderness - Back Exam Back exam: Absent: CVA tenderness (L), CVA tenderness (R) - Neurological Exam Neurological exam: Present: alert, oriented X3 Internal Medicine: Result - Labs CBC & Chem 7: 04/22/17 05:30 04/24/17 06:08 - ABG Interpretation ABG results: PT/INR, D-dimer PT 9.5 Seconds (9.4-12.1) 04/20/17 10:46 Consult Discharge Plan - Plan Referrals: Addy Fraire MD [Primary Care Provider] -
[2017-04-25 12:23] LABS: Basophils % 0.5 %; Eosinophils # 0.1 K/mcL (0.0-0.6); Eosinophils % 0.7 %; Hematocrit 29.1 % (35.3-44.9); Hemoglobin 8.9 g/dL (11.5-15.4); Immature Granulocytes % 0.2 % (0-4); Lymphocytes # 0.7 K/mcL (0.6-4.6); Lymphocytes % 8.5 %; Mean Corpuscular HGB Conc 30.6 g/dL (31.6-35.5); Mean Corpuscular Hemoglobin 27.7 pg (28.0-33.3); Mean Corpuscular Volume 90.7 fL (83.0-100.0); Mean Platelet Volume 10.3 fL (9.4-12.4); Monocytes # 0.4 K/mcL (0.0-1.3); Monocytes % 4.2 %; Platelet Count 161 K/mcL (140-400); Red Blood Count 3.21 M/mcL (3.82-4.97); Red Cell Distribution Width 16.4 % (11.5-14.5); Segmented Neutrophils % 85.9 %
[2017-04-25 12:25] LABS: Neutrophils # 7.1 K/mcL (1.6-8.9)
[2017-04-26] MEDS ORDERED: 0.9 % Sodium Chloride 500 ML ONE (09:08)
[2017-04-26] MEDS ORDERED: *HR* Midazolam HCl 2 MG/2 ML VIAL ONE (09:08)
[2017-04-26] MEDS ORDERED: *HR* FentaNYL (PF) 100 MCG/2 ML VIAL ONE (09:08)
[2017-04-26] MEDS ORDERED: methylPREDNISolone 125 MG/2 ML VIAL ONE (09:09)
[2017-04-26] MEDS ORDERED: Clindamycin 600 MG/50 ML 1,200 MG/100 ML IV.SOLN IVPB ONE (09:09)
[2017-04-26] MEDS ORDERED: 0.9 % Sodium Chloride 1,000 ML ONE (09:09)
--- NOTE | 2017-04-26 09:12 | Internal Med Progress Note ---
Date of Encounter: 04/26/17 Time of Encounter: 07:30 - Assessment and plan (1) Hypotension Current Visit: No Status: Acute Assessment and plan: Due to adrenal insufficiency resolved cont tapering steroids.. Prednisone 10mg daily now.. May need to continue Prednisone 10mg daily.. and f/u with her neurologist for further dosing due to her MS cont close monitoring Qualifiers: Hypotension type: unspecified hypotension type Qualified Code(s): I95.9 - Hypotension, unspecified (2) Tachy-elham syndrome Current Visit: No Status: Acute Assessment and plan: s/p Pacemaker Patient was noted to have a right ventricle lead that needs to be replaced and has a generator change scheduled for 04/26/17 Cardiology on board.. scheduled for pacemaker reapir today Will hold Eliquis for now (3) Multiple sclerosis Current Visit: No Status: Chronic Assessment and plan: Currently on Prednisone 10mg will continue that for now.. need to f/u with Neuro as an out pt (4) Adrenal insufficiency due to steroid withdrawal Current Visit: Yes Status: Suspected Assessment and plan: improved (5) Peufc-ij-symgfsg kidney injury Current Visit: No Status: Acute Assessment and plan: due to hypotension / hypovolemia improved Qualifiers: Acute renal failure type: unspecified Chronic kidney disease stage: stage 2 (mild) Qualified Code(s): N17.9 - Acute kidney failure, unspecified; N18.2 - Chronic kidney disease, stage 2 (mild); N18.2 - Chronic kidney disease, stage 2 (mild) (6) PAF (paroxysmal atrial fibrillation) Current Visit: No Status: Chronic Assessment and plan: Rate controlled with Cardizem now will use Cardizem IV PRN if she develops RVR Held Elliquis for Pacemaker surgery in AM (7) GERD (gastroesophageal reflux disease) Current Visit: No Status: Acute Assessment and plan: on ppi Qualifiers: Esophagitis presence: esophagitis presence not specified Qualified Code(s) : K21.9 - Gastro-esophageal reflux disease without esophagitis (8) COPD (chronic obstructive pulmonary disease) Current Visit: No Status: Chronic Assessment and plan: not in exacerbation cont duoneb + O2 Qualifiers: COPD type: chronic bronchitis Chronic bronchitis type: simple Qualified Code(s): J41.0 - Simple chronic bronchitis (9) Chronic diastolic (congestive) heart failure Current Visit: No Status: Chronic Assessment and plan: not in exacerbation resume lasix in AM (10) Chronic kidney disease, stage 3 Current Visit: No Status: Chronic - Subjective Interval history: Ms. Roberts is a 66 year old female with a relevant past medical history of multiple sclerosis, atrial fibrillation, tachybrady syndrome s/p pacemaker, non- obstructive CAD, diastolic CHF, hyperlipidemia, anemia, GERD, COPD, CVA, gastric ulcers. Patient presents to [facility] with complaints of feeling "out of focus." Patient states she was dizzy and her vision was not normal. States she attempted to take her BP at home and it kept reading "low." Patient then called 911. Per ER note, upon EMS arrival, they were also unable to obtain a BP. Per ER records, pateint was lethargic and profoundly hypotensive on arrival. Patient was admitted into ICU and started her on high dose IV hydrocortisone, IV fluids, and vasopressors. Now her vitals imporved, pt was transferred to [facility] for further care. Pt was seen and examined at bed side. She denied any new complaints. She denied any CP , her SOB also better today. She is alert, awake and O x 3. Her HR well controlled now. She does c/o some anxiety. Pt is scheduled for pacemaker repair this morning. - Constitutional Vitals: Temp Pulse Resp BP Pulse Ox 98.2 F 79 12 155/89 95 04/26/17 07:29 04/26/17 07:29 04/26/17 07:29 04/26/17 07:29 04/26/17 07:29 General appearance: Present: A&O X 3, no acute distress, answers questions appropriately - Head Head exam: Present: atraumatic, normal inspection - Neck Neck exam general surgery: Present: supple - Respiratory Respiratory exam: Present: decreased breath sounds. Absent: rales, respiratory distress, rhonchi, wheezes - Cardiovascular Cardiovascular exam: Present: RRR, +S1, +S2. Absent: tachycardia - GI/Abdominal GI/Abdominal exam: Present: normal bowel sounds, soft. Absent: rebound, rigid, tenderness - Extremities Exam Extremities exam: Absent: calf tenderness, pedal edema, tenderness - Back Exam Back exam: Absent: CVA tenderness (L), CVA tenderness (R) - Psychiatric Psychiatric exam: Present: anxious Internal Medicine: Result - Labs CBC & Chem 7: 04/25/17 12:19 04/24/17 06:08 Labs: Short CBC 04/25/17 Range/Units 12:19 WBC 8.3 D (4.3-11.1) K/mcL Hgb 8.9 L (11.5-15.4) g/dL Hct 29.1 L (35.3-44.9) % Plt Count 161 (140-400) K/mcL Neutrophils # 7.1 (1.6-8.9) K/mcL - ABG Interpretation ABG results: PT/INR, D-dimer PT 9.5 Seconds (9.4-12.1) 04/20/17 10:46 Consult Discharge Plan - Plan Referrals: Addy Fraire MD [Primary Care Provider] -
--- NOTE | 2017-04-26 09:15 | Pre-Sedation Evaluation ---
Pre-sedation evaluation - Pre-sedation checklist Date of procedure: 04/26/17 Procedure: Pacemaker gen change Recent Vitals: Last Vital Signs Temp 98.2 F 04/26/17 07:29 Pulse 79 04/26/17 07:29 Resp 12 04/26/17 07:29 BP 155/89 04/26/17 07:29 Pulse Ox 95 04/26/17 07:29 H&P (including ROS) documented in medical record: No Previous reaction to sedatives/anesthetics: No Dietary Status: NPO after Midnight Airway Assessment: Patient can open mouth completely, TMJ function normal Dentition: No loose teeth or bridges Possible difficult airway: No ASA Classification *see protocol: CLASS II-Mild systemic disease Plan of Care: Pt appropriate candidate for procedure/moderate/conscious sedation , Risks/benefits of procedure/sedation discussed w/ patient/family
[2017-04-26] MEDS: predniSONE 10 MG TABLET PO SCH (10:54)
[2017-04-26] MEDS: tiZANidine 4 MG TABLET PO SCH ×2 (10:54→19:55)
[2017-04-26] MEDS: *HR* OxyCODONE/APAP 7.5/325 TABLET PO PRN ×2 (10:54→19:55)
[2017-04-26] MEDS: CeFAZolin Premix DUPLEX 2,000 MG/50 ML BAG IVPB SCH (15:49)
[2017-04-27] MEDS: CeFAZolin Premix DUPLEX 2,000 MG/50 ML BAG IVPB SCH (00:08)
[2017-04-27] MEDS: *HR* OxyCODONE/APAP 7.5/325 TABLET PO PRN (04:12)
[2017-04-27 06:44] VITALS: BP 138/70
[2017-04-27] MEDS: tiZANidine 4 MG TABLET PO SCH (08:01)
[2017-04-27] MEDS: predniSONE 10 MG TABLET PO SCH (08:01)
--- NOTE | 2017-04-27 10:27 | Discharge Summary ---
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 Priority: Primary Status: Suspected (2) Acute kidney injury Priority: Primary Status: Acute (3) Multiple sclerosis Priority: Secondary Status: Chronic (4) Chronic diastolic (congestive) heart failure Priority: Secondary Status: Chronic (5) Gout Priority: Secondary Status: Chronic Qualifiers: Gout site: multiple sites Gout etiology: idiopathic Chronicity: chronic Presence of tophus: without tophus Qualified Code(s): M1A.09X0 - Idiopathic chronic gout, multiple sites, without tophus (tophi) (6) Tachy-elham syndrome Priority: Secondary Status: Acute (7) Hypertension Priority: Secondary Status: Acute Qualifiers: Hypertension type: essential hypertension Qualified Code(s): I10 - Essential (primary) hypertension - Discharge Medications Prescriptions: predniSONE [PredniSONE] 10 mg PO DAILY #30 tablet Home Medications: Albuterol Sulfate [Albuterol Inhaler] 2 puff IH Q4H PRN 11/04/15 [History] Fluticasone Propionate Nasal [Flonase] 2 spray NS BID 11/04/15 [History] Lansoprazole [Prevacid] 30 mg PO DAILY #30 capsule.dr 11/12/15 [Rx] Modafinil [Provigil] 200 mg PO BID #60 tablet 11/12/15 [Rx] Pramipexole [Mirapex] 0.5 mg PO DAILY #30 tablet 11/12/15 [Rx] Simvastatin [Zocor] 20 mg PO HS #30 tablet 11/12/15 [Rx] Apixaban [Eliquis] 5 mg PO BID 03/11/17 [History] Nitroglycerin [Nitrostat] 0.4 mg SL Q5-6MIN PRN 03/11/17 [History] Oxycodone HCl/Acetaminophen [Percocet 7.5-325 mg Tablet] 1 tab PO TID PRN MDD 3 03/11/17 [History] Acetaminophen [Tylenol] 325 mg PO Q6HR PRN 03/17/17 [History] Diltiazem CD (24hr) [Cardizem CD] 120 mg PO DAILY #30 cap.er.24h 03/20/17 [Rx] Furosemide [Lasix] 20 mg PO DAILY PRN #30 tablet 03/20/17 [Rx] Baclofen 1 tab PO TID PRN 04/20/17 [History] Interferon Beta-1A/Albumin [Rebif 44 Mcg/0.5 ml Syringe] 1 each IJ AD 04/20/17 [ History] Tizanidine HCl 2 tab PO BID 04/20/17 [History] predniSONE [PredniSONE] 10 mg PO DAILY #30 tablet 04/27/17 [Rx] Allergies/Adverse Reactions: 3 Allergy/AdvReac Type Severity Reaction Status Date / Time mannitol [From Reclast] Allergy Hives Verified 04/20/17 11:48 zoledronic acid Allergy Hives Verified 04/20/17 11:48 [From Reclast] adhesive tape AdvReac Rash Verified 04/20/17 11:48 aspirin AdvReac Nausea Verified 04/20/17 11:48 cephalexin [From Keflex] AdvReac STOMACH Verified 04/20/17 11:48 UPSET codeine AdvReac Abdominal Verified 04/20/17 11:48 Pain Iodinated Contrast- Oral and AdvReac Hives AND Verified 04/20/17 11:48 IV Dye BREATHING ISSUES Procedures/tests Complete & Pending: Procedures Performed prior 72 hours Category Date Time Status CL Generator Remove Replace [CL] Routine Headhunter 04/26/17 08:29 Ordered Date of admission: 04/20/17 15:23 Primary care physician: Addy Fraire MD Consults: 04/22/17 11:24 Consult to Occupational Therapy [CONS] Routine Comment: Evaluate, develop and implement POC Reason for Consult: weakness on transfer Consult to Physical Therapy [CONS] Routine Comment: Evaluate, develop and implement POC Reason for Consult: weakness on transfer - Patient Status Disposition: Home, Self-Care Condition: Fair Overall status at discharge: patient is progressing back to baseline - Discharge Instructions Instructions: Pacemaker (GEN), Syncope (GEN) Follow Up With: Addy Fraire MD [Primary Care Provider] - 05/03/17 11:30 am Additional Instructions: You should try to see your PCP and neurologist within a week. Take 10 mg of prednisone daily until you are seen by either one of them and they will taper you down to what you were on before if needed or they may just keep you on the 10 mg daily. - Diet and Activity Activity: increase activity as tolerated Diet: regular diet Hospital course: Ms. Roberts is a 66 year old female with a past medical history of multiple sclerosis, paroxysmal atrial fibrillation, tachybradycardia syndrome status post pacemaker, obstructive coronary artery disease, hyperlipidemia, anemia, GERD, COPD, CVA, gout, hypertension and chronic diastolic congestive heart failure who presented to the [facility] emergency emergency department with a chief complaint of hypotension and lethargy. Patient reported that she attempted to walk to the bathroom for bowel movement but became profoundly lightheaded. Patient then placed a blood pressure cuff and the reading kept saying error or low. She stated, per documentation, that she is a chronic steroid user due to her multiple sclerosis and recently was weaned. On route to the ED, her systolic blood pressure was 50 and multiple attempts for IV access were unsuccessful and ultimately required left interosseous line access. She was admitted to the ICU. PICC line was placed and a central line was deferred as per time she had arrived to our facility. She was actually acceptable. She was aggressively hydrated. She was given stress dose steroids. Eventually her blood pressure stayed at a reasonable range. She was transferred out of the ICU off pressors. We weaned down her steroids and eventually was able to switch her to oral steroids. Put on prednisone and were able to put on 10 mg of prednisone daily at discharge. Advised patient to continue on the 10 mg of prednisone daily and to seek follow- up with primary care physician as well as her neurologist to see what is best for her MS. We believe that most of her symptoms were thought secondary to adrenal insufficiency from chronic steroids. - Time Spent with Patient Total time spent providing and/or coordinating discharge services: - Constitutional Vitals: Temp Pulse Resp BP Pulse Ox 97.9 F 75 17 138/70 98 04/27/17 06:42 04/27/17 06:42 04/27/17 06:42 04/27/17 06:42 04/27/17 06:42 General appearance: Present: A&O X 3, no acute distress, answers questions appropriately Exam: GEN: NAD CVS: RRR. S1, S2, No m/r/g RESP: CTAB ABD: Soft, NT, ND, +BS EXT: No edema. 2+ DP. No rashes NEURO: Nonfocal
== END 2017-04-27 13:00 | disposition home or self-care (01) | DRG 644 ==
LOC: EMEROO 08:56 → ICNU 15:23 → 2ANU 04-22 17:42
PROVIDERS: ADMIT Internal Medicine Hospice and Palliative Medicine; ATTEND Family Medicine

== ENCOUNTER 2017-10-01 00:13 | Observation (INO) ==
[2017-10-01] MEDS ORDERED: *HR* LORazepam 1 MG TABLET PO ONE (02:57)
--- NOTE | 2017-10-01 02:59 | Emergency Department Note ---
Disposition Clinical Impression: Delirium due to general medical condition Urinary tract infection Qualifiers: Urinary tract infection type: acute cystitis Hematuria presence: without hematuria Qualified Code(s): N30.00 - Acute cystitis without hematuria Disposition: Admitted As Inpatient Condition: Good Referrals: Addy Fraire MD [Primary Care Provider] - Forms: ED Satisfaction Letter Time of Disposition: 07:49 General Adult HPI - General Chief complaint: ED Altered Mental Status Stated complaint: altered mental status Time Seen by Provider: 10/01/17 02:56 Source: family, EMS Limitations: altered mental status Nursing Notes Reviewed: Yes Vital Signs Reviewed: Yes - History of Present Illness HPI Narrative: Neck pain back pain that just happened recently. Patient has rhythmic motion. Came in by EMS. Alert and oriented for me however nursing states that she was complaining of having blood scrolling on her earlier and there were no bugs on her. Pain Scale: 7 - Related Data Home Medications Medication Instructions Recorded Confirmed Albuterol Sulfate [Albuterol 2 puff IH Q4H PRN 11/04/15 04/20/17 Inhaler] Fluticasone Propionate Nasal 2 spray NS BID 11/04/15 04/20/17 [Flonase] Apixaban [Eliquis] 5 mg PO BID 03/11/17 04/20/17 Nitroglycerin [Nitrostat] 0.4 mg SL Q5-6MIN PRN 03/11/17 04/20/17 Oxycodone HCl/Acetaminophen 1 tab PO TID PRN MDD 3 03/11/17 04/20/17 [Percocet 7.5-325 mg Tablet] Acetaminophen [Tylenol] 325 mg PO Q6HR PRN 03/17/17 04/20/17 Baclofen 1 tab PO TID PRN 04/20/17 04/20/17 Interferon Beta-1A/Albumin [Rebif 1 each IJ AD 04/20/17 04/20/17 44 Mcg/0.5 ml Syringe] Tizanidine HCl 2 tab PO BID 04/20/17 04/20/17 Previous Rx's Medication Instructions Recorded Lansoprazole [Prevacid] 30 mg PO DAILY #30 capsule. 11/12/15 Modafinil [Provigil] 200 mg PO BID #60 tablet 11/12/15 Pramipexole [Mirapex] 0.5 mg PO DAILY #30 tablet 11/12/15 Simvastatin [Zocor] 20 mg PO HS #30 tablet 11/12/15 Diltiazem CD (24hr) [Cardizem CD] 120 mg PO DAILY #30 cap.er.24h 03/20/17 Furosemide [Lasix] 20 mg PO DAILY PRN #30 tablet 03/20/17 predniSONE [PredniSONE] 10 mg PO DAILY #30 tablet 04/27/17 Allergies Allergy/AdvReac Type Severity Reaction Status Date / Time mannitol [From Reclast] Allergy Hives Verified 04/20/17 11:48 zoledronic acid Allergy Hives Verified 04/20/17 11:48 [From Reclast] adhesive tape AdvReac Rash Verified 04/20/17 11:48 aspirin AdvReac Nausea Verified 04/20/17 11:48 cephalexin [From Keflex] AdvReac STOMACH Verified 04/20/17 11:48 UPSET codeine AdvReac Abdominal Verified 04/20/17 11:48 Pain Iodinated Contrast- Oral and AdvReac Hives AND Verified 04/20/17 11:48 IV Dye BREATHING ISSUES All systems ED: reviewed and negative except as stated. Constitutional: Denies: fever ENT ED: Denies: congestion Cardiovascular: Denies: chest pain Respiratory: Denies: cough, dyspnea Gastrointestinal: Denies: abdominal pain, nausea, vomiting, diarrhea Genitourinary: Denies: urgency, dysuria, frequency Musculoskeletal: Reports: back pain, neck pain Integumentary: Denies: rash Past Medical History - Past Medical History Attestation: Yes The following information was validated with the patient. Source: patient Medical history: Reports: arthritis, atrial fibrillation, CHF, COPD, coronary artery disease, CVA, DVT, GERD, hyperlipidemia, hypertension, migraine, myocardial infarction, RA, renal disease, other Surgical history: Reports: appendectomy, colectomy, orthopedic, other, pacemaker /AICD, other Psychiatric history: Reports: no psych history [employer]PER[employer] history: Reports: no [employer] SUPER[employer]OR history - Social History Smoking Status: Never smoker Smokeless Tobacco Status: No Alcohol use: Reports: none Drug use: Reports: none Physical Exam - General Limitations: altered mental status General appearance: appears intoxicated, obese - Head Head exam: atraumatic, normocephalic, normal inspection - Eye Eye exam: Present: normal appearance, PERRL, EOMI - ENT ENT exam: normal exam, normal oropharynx, mucous membranes moist - Neck Neck exam: Present: normal inspection, full ROM, trachea midline - Chest Chest inspection: Present: normal inspection, symmetric chest wall rise - Respiratory Respiratory exam: Present: normal lung sounds bilaterally. Absent: respiratory distress, accessory muscle use - Cardiovascular Cardiovascular exam: Present: regular rate, normal rhythm, normal heart sounds - Abdominal Exam Abdominal exam: Present: soft, Non-Tender. Absent: tenderness, distention, guarding, rebound, rigidity, organomegaly - Extremities Exam Extremities exam: Present: normal inspection, full ROM, normal capillary refill. Absent: tenderness, pedal edema - Back Exam Back exam: Present: normal inspection, full ROM, tenderness (To palpation of rhomboid area.) - Neurological Exam Neurological exam: Present: alert, oriented X3 - Psychiatric Psychiatric exam: Present: anxious, manic - Skin Skin exam: Present: warm, dry, intact, normal color Course Course Narrative: Female patient brought in by EMS. Patient complaining of neck and upper back pain. She denies any trauma. She states she chronically has back pain and generally takes baclofen however she has not gotten relief from her back pain with that. Patient had odd behaviors. She is rhythmically writhing in the bed. She states that this is normal for her as she has MS. Patient is alert and oriented 3 however she frequently is giggling through the exam. We will get a UA and basic lab workup on patient. We will provide her with Ativan and Benadryl at this time. - Reevaluation(s) Reevaluation #1: Patient has a UTI. We will start patient on Rocephin. Nursing staff advised that the patient was having hallucinations earlier. She thought she had bugs on her. She responded appropriately to the Ativan and Benadryl. She has been sleeping. She is easily arousable however. Head CT was negative. Urine tox was negative. Does have a mildly elevated creatinine. We will admit patient to the hospital for altered mental status as well as UTI. Time: 05:07 Reevaluation #2: Pt is sleeping. She is arousable. She complains of abdominal pain at this time. We have started her on antibiotics for her UTI. We will admit patient to the hospital. I did a chart search and do not find any discussion about rhythmic motions for her. She does have MS however this is not documented about the rhythmic motions. She does not have them this morning however. Time: 07:45 Vital Signs Temperature 0 F L 10/01/17 00:17 Pulse Rate 0 10/01/17 00:17 Respiratory Rate 0 10/01/17 00:17 Blood Pressure 0/0 10/01/17 00:17 O2 Sat by Pulse Oximetry 0 10/01/17 00:17 Temperature 98.0 F 10/01/17 05:25 Pulse Rate 66 10/01/17 05:25 Respiratory Rate 18 10/01/17 05:25 Blood Pressure 129/76 10/01/17 05:25 O2 Sat by Pulse Oximetry 99 10/01/17 05:25 Oxygen Delivery Oxygen Delivery Room Air Medical Decision Making - Medical Records Medical records reviewed: Yes I reviewed the patient's medical records. - Lab Data Lab results reviewed: Yes I reviewed the patient's lab results. Result diagrams: 10/01/17 01:12 10/01/17 01:12 Lab Results 10/01/17 10/01/17 10/01/17 Range/Units 00:21 01:12 01:12 WBC 6.3 (4.3-11.1) K/mcL RBC 4.22 (3.82-4.97) M/mcL Hgb 10.8 L (11.5-15.4) g/dL Hct 35.4 (35.3-44.9) % MCV 83.9 (83.0-100.0) fL MCH 25.6 L (28.0-33.3) pg MCHC 30.5 L (31.6-35.5) g/dL RDW 18.7 H (11.5-14.5) % Plt Count 179 (140-400) K/mcL MPV 10.7 (9.4-12.4) fL Immature Gran % 0.3 (0-4) % Seg Neutrophils % 65.5 % Lymphocytes % 22.7 % Monocytes % 9.9 % Eosinophils % 1.0 % Basophils % 0.6 % Neutrophils # 4.1 (1.6-8.9) K/mcL Lymphocytes # 1.4 (0.6-4.6) K/mcL Monocytes # 0.6 (0.0-1.3) K/mcL Eosinophils # 0.1 (0.0-0.6) K/mcL Basophils # 0.0 (0.0-0.2) K/mcL Immature Plt Fraction 4.2 (1.1-6.1) % Sodium 142 (136-145) mEq/L Potassium 3.5 (3.5-5.1) mEq/L Chloride 106 (98-107) mEq/L Carbon Dioxide 19 L (23-29) mEq/L BUN 34 H (8-23) mg/dL Creatinine 1.81 H (0.60-1.20) mg/dL Est GFR ( Amer) 34 L (> 60) Est GFR (Non-Af Amer) 28 L (> 60) BUN/Creatinine Ratio 19 (6-26) Glucose 93 (70-105) mg/dL POC Glucose 92 (70-99) mg/dL Calculated Osmolality 301 H (280-300) Lactic Acid (0.5-2.2) mmol/L Calcium 9.9 (8.6-10.3) mg/dL Total Bilirubin 0.6 (0.3-1.0) mg/dL Direct Bilirubin 0.1 (0.0-0.2) mg/dL Indirect Bilirubin 0.5 (0.0-1.2) mg/dL AST 39 (13-39) Units/L ALT 19 (7-52) Units/L Alkaline Phosphatase 103 (34-104) Units/L Troponin I < 0.03 (< 0.04) ng/mL Serum Total Protein 7.5 (6.4-8.9) g/dL Albumin 4.6 (3.5-5.7) g/dL Globulin 2.9 (2.4-3.5) g/dL Albumin/Globulin Ratio 1.6 (1.1-2.2) Urine Color (Yellow) Urine Clarity (Clear) Urine pH (5.0-8.0) pH Units Ur Specific Yeso (1.010-1.025) Urine Protein (Neg-Trace) mg/dL Urine Glucose (UA) (Normal) mg/dL Urine Ketones (Negative) mg/dL Urine Blood (Negative) Urine Nitrite (Negative) Urine Bilirubin (Negative) Urine Urobilinogen (Normal) mg/dL Ur Leukocyte Esterase (Negative) Urine Microscopic RBC (0-3) per hpf Urine Microscopic WBC (0-3) per hpf Ur Squamous Epith Cells (None-Few) per lpf Ur Renal Epithelial Cell (None-Few) per hpf Urine Bacteria (None-Few) per hpf Ur Culture Indicated? (NO) Salicylates (15.0-30.0) mg/dL Urine Opiates Screen (Xtjzmq=806) ng/mL Acetaminophen (10-20) mcg/mL Ur Barbiturates Screen (Troivi=693) ng/mL Ur Phencyclidine Scrn (Cutoff=25) ng/mL Ur Amphetamines Screen (Gycudw=8166) ng/mL U Benzodiazepines Scrn (Ieeiiz=745) ng/mL Urine Cocaine Screen (Cutoff= 300) ng/mL U Marijuana (THC) Screen (Cutoff = 50) ng/mL Ur Drug Screen Interp Ethyl Alcohol < 10 (Less than 10) mg/dL 10/01/17 10/01/17 10/01/17 Range/Units 01:12 04:36 04:36 WBC (4.3-11.1) K/mcL RBC (3.82-4.97) M/mcL Hgb (11.5-15.4) g/dL Hct (35.3-44.9) % MCV (83.0-100.0) fL MCH (28.0-33.3) pg MCHC (31.6-35.5) g/dL RDW (11.5-14.5) % Plt Count (140-400) K/mcL MPV (9.4-12.4) fL Immature Gran % (0-4) % Seg Neutrophils % % Lymphocytes % % Monocytes % % Eosinophils % % Basophils % % Neutrophils # (1.6-8.9) K/mcL Lymphocytes # (0.6-4.6) K/mcL Monocytes # (0.0-1.3) K/mcL Eosinophils # (0.0-0.6) K/mcL Basophils # (0.0-0.2) K/mcL Immature Plt Fraction (1.1-6.1) % Sodium (136-145) mEq/L Potassium (3.5-5.1) mEq/L Chloride (98-107) mEq/L Carbon Dioxide (23-29) mEq/L BUN (8-23) mg/dL Creatinine (0.60-1.20) mg/dL Est GFR ( Amer) (> 60) Est GFR (Non-Af Amer) (> 60) BUN/Creatinine Ratio (6-26) Glucose (70-105) mg/dL POC Glucose (70-99) mg/dL Calculated Osmolality (280-300) Lactic Acid (0.5-2.2) mmol/L Calcium (8.6-10.3) mg/dL Total Bilirubin (0.3-1.0) mg/dL Direct Bilirubin (0.0-0.2) mg/dL Indirect Bilirubin (0.0-1.2) mg/dL AST (13-39) Units/L ALT (7-52) Units/L Alkaline Phosphatase (34-104) Units/L Troponin I (< 0.04) ng/mL Serum Total Protein (6.4-8.9) g/dL Albumin (3.5-5.7) g/dL Globulin (2.4-3.5) g/dL Albumin/Globulin Ratio (1.1-2.2) Urine Color Yellow (Yellow) Urine Clarity Cloudy A (Clear) Urine pH 5.0 (5.0-8.0) pH Units Ur Specific Yeso 1.020 (1.010-1.025) Urine Protein Negative (Neg-Trace) mg/dL Urine Glucose (UA) Normal (Normal) mg/dL Urine Ketones Trace H (Negative) mg/dL Urine Blood Negative (Negative) Urine Nitrite Negative (Negative) Urine Bilirubin Small H (Negative) Urine Urobilinogen Normal (Normal) mg/dL Ur Leukocyte Esterase Large H (Negative) Urine Microscopic RBC 0-3 (0-3) per hpf Urine Microscopic WBC 15-30 H (0-3) per hpf Ur Squamous Epith Cells Many H (None-Few) per lpf Ur Renal Epithelial Cell Few (None-Few) per hpf Urine Bacteria Moderate H (None-Few) per hpf Ur Culture Indicated? NO. A (NO) Salicylates < 2.5 L (15.0-30.0) mg/dL Urine Opiates Screen Negative (Wxnzzv=115) ng/mL Acetaminophen < 10 L (10-20) mcg/mL Ur Barbiturates Screen Negative (Mnjwtb=252) ng/mL Ur Phencyclidine Scrn Negative (Cutoff=25) ng/mL Ur Amphetamines Screen Negative (Tdofsw=1754) ng/mL U Benzodiazepines Scrn Negative (Xfubsx=264) ng/mL Urine Cocaine Screen Negative (Cutoff= 300) ng/mL U Marijuana (THC) Screen Negative (Cutoff = 50) ng/mL Ur Drug Screen Interp See Below Ethyl Alcohol (Less than 10) mg/dL 10/01/17 Range/Units 06:13 WBC (4.3-11.1) K/mcL RBC (3.82-4.97) M/mcL Hgb (11.5-15.4) g/dL Hct (35.3-44.9) % MCV (83.0-100.0) fL MCH (28.0-33.3) pg MCHC (31.6-35.5) g/dL RDW (11.5-14.5) % Plt Count (140-400) K/mcL MPV (9.4-12.4) fL Immature Gran % (0-4) % Seg Neutrophils % % Lymphocytes % % Monocytes % % Eosinophils % % Basophils % % Neutrophils # (1.6-8.9) K/mcL Lymphocytes # (0.6-4.6) K/mcL Monocytes # (0.0-1.3) K/mcL Eosinophils # (0.0-0.6) K/mcL Basophils # (0.0-0.2) K/mcL Immature Plt Fraction (1.1-6.1) % Sodium (136-145) mEq/L Potassium (3.5-5.1) mEq/L Chloride (98-107) mEq/L Carbon Dioxide (23-29) mEq/L BUN (8-23) mg/dL Creatinine (0.60-1.20) mg/dL Est GFR ( Amer) (> 60) Est GFR (Non-Af Amer) (> 60) BUN/Creatinine Ratio (6-26) Glucose (70-105) mg/dL POC Glucose (70-99) mg/dL Calculated Osmolality (280-300) Lactic Acid 0.9 (0.5-2.2) mmol/L Calcium (8.6-10.3) mg/dL Total Bilirubin (0.3-1.0) mg/dL Direct Bilirubin (0.0-0.2) mg/dL Indirect Bilirubin (0.0-1.2) mg/dL AST (13-39) Units/L ALT (7-52) Units/L Alkaline Phosphatase (34-104) Units/L Troponin I (< 0.04) ng/mL Serum Total Protein (6.4-8.9) g/dL Albumin (3.5-5.7) g/dL Globulin (2.4-3.5) g/dL Albumin/Globulin Ratio (1.1-2.2) Urine Color (Yellow) Urine Clarity (Clear) Urine pH (5.0-8.0) pH Units Ur Specific Yeso (1.010-1.025) Urine Protein (Neg-Trace) mg/dL Urine Glucose (UA) (Normal) mg/dL Urine Ketones (Negative) mg/dL Urine Blood (Negative) Urine Nitrite (Negative) Urine Bilirubin (Negative) Urine Urobilinogen (Normal) mg/dL Ur Leukocyte Esterase (Negative) Urine Microscopic RBC (0-3) per hpf Urine Microscopic WBC (0-3) per hpf Ur Squamous Epith Cells (None-Few) per lpf Ur Renal Epithelial Cell (None-Few) per hpf Urine Bacteria (None-Few) per hpf Ur Culture Indicated? (NO) Salicylates (15.0-30.0) mg/dL Urine Opiates Screen (Nfdfdd=515) ng/mL Acetaminophen (10-20) mcg/mL Ur Barbiturates Screen (Uyitsc=782) ng/mL Ur Phencyclidine Scrn (Cutoff=25) ng/mL Ur Amphetamines Screen (Ghpsor=7531) ng/mL U Benzodiazepines Scrn (Yfcrll=667) ng/mL Urine Cocaine Screen (Cutoff= 300) ng/mL U Marijuana (THC) Screen (Cutoff = 50) ng/mL Ur Drug Screen Interp Ethyl Alcohol (Less than 10) mg/dL - Radiology Data Radiology results reviewed: Yes I reviewed the patient's radiology results. Chest X-Ray 10/01/17 02:56 IMPRESSION: No acute cardiopulmonary findings on this exam limited by patient positioning. Large hiatal hernia. D/ / Dontae Vanessa / Dontae Vanessa Interpreting Provider: Dontae Vanessa Head CT 10/01/17 03:47 IMPRESSION: No acute intracranial abnormality. D/ / Dontae Vanessa / Dontae Vanessa Interpreting Provider: Dontae Vanessa - EKG Data EKG #1 EKG attestation: Yes I reviewed and interpreted this EKG. EKG results narrative: Normal sinus rhythm at a rate of 79. MN interval is 177. QRS duration is 99. QT is 49. QTC is 443. No signs of acute ischemia. No previous EKG to compare to.
[2017-10-01 03:28] LABS: Basophils % 0.6 %; Eosinophils # 0.1 K/mcL (0.0-0.6); Hematocrit 35.4 % (35.3-44.9); Hemoglobin 10.8 g/dL (11.5-15.4); Immature Granulocytes % 0.3 % (0-4); Immature Platelets 4.2 % (1.1-6.1); Lymphocytes # 1.4 K/mcL (0.6-4.6); Lymphocytes % 22.7 %; Mean Corpuscular HGB Conc 30.5 g/dL (31.6-35.5); Mean Corpuscular Hemoglobin 25.6 pg (28.0-33.3); Mean Corpuscular Volume 83.9 fL (83.0-100.0); Mean Platelet Volume 10.7 fL (9.4-12.4); Monocytes # 0.6 K/mcL (0.0-1.3); Monocytes % 9.9 %; Neutrophils # 4.1 K/mcL (1.6-8.9); Platelet Count 179 K/mcL (140-400); Red Blood Count 4.22 M/mcL (3.82-4.97); Red Cell Distribution Width 18.7 % (11.5-14.5); Segmented Neutrophils % 65.5 %
[2017-10-01 03:39] LABS: Alanine Aminotransferase 19 Units/L (7-52); Albumin 4.6 g/dL (3.5-5.7); Albumin/Globulin Ratio 1.6 (1.1-2.2); Alkaline Phosphatase 103 Units/L (34-104); Aspartate Amino Transferase 39 Units/L (13-39); BUN/Creatinine Ratio 19 (6-26); Bilirubin,Direct 0.1 mg/dL (0.0-0.2); Bilirubin,Indirect 0.5 mg/dL (0.0-1.2); Bilirubin,Total 0.6 mg/dL (0.3-1.0); Blood Urea Nitrogen 34 mg/dL (8-23); Calcium 9.9 mg/dL (8.6-10.3); Carbon Dioxide 19 mEq/L (23-29); Chloride 106 mEq/L (98-107); Ethanol < 10 mg/dL (Less than 10); Globulin 2.9 g/dL (2.4-3.5); Glucose 93 mg/dL (70-105); Osmolality,Calculated 301 (280-300); Potassium 3.5 mEq/L (3.5-5.1); Sodium 142 mEq/L (136-145); Total Protein 7.5 g/dL (6.4-8.9); Troponin I < 0.03 ng/mL (< 0.04); eGFR For African Americans 34 (> 60); eGFR For Non-African Americans 28 (> 60)
[2017-10-01 04:53] LABS: Bilirubin,Urine Small (Negative); Blood,Urine Negative (Negative); Clarity,Urine Cloudy (Clear); Color,Urine Yellow (Yellow); Glucose,Urine (UA) Normal (Normal); Ketones,Urine Trace mg/dL (Negative); Leukocyte Esterase,Urine Large (Negative); Nitrite,Urine Negative (Negative); Protein,Urine Negative (Neg-Trace); Urobilinogen,Urine Normal (Normal)
[2017-10-01 04:56] LABS: RBC,Urine 0-3 per hpf (0-3); Squamous Epithelial Cell,Urine Many per lpf (None-Few); WBC,Urine 15-30 per hpf (0-3)
[2017-10-01 05:00] LABS: Acetaminophen < 10 mcg/mL (10-20); Salicylate < 2.5 mg/dL (15.0-30.0)
[2017-10-01 05:03] LABS: Bacteria,Urine Moderate per hpf (None-Few); Renal Epithelial Cells,Urine Few per hpf (None-Few)
[2017-10-01] MEDS ORDERED: cefTRIAXone 1,000 MG in Water for inj. (sterile) 20 ML 10 ML IVP ONE (05:06)
[2017-10-01] MEDS ORDERED: 0.9 % Sodium Chloride 500 ML IVC ONE (05:08)
[2017-10-01 05:11] LABS: Amphetamine Screen,Urine Negative ng/mL (Cutoff=1000); Barbiturate Screen,Urine Negative ng/mL (Cutoff=200); Benzodiazepines Screen,Urine Negative ng/mL (Cutoff=200); Cannabinoid Screen,Urine Negative ng/mL (Cutoff = 50); Cocaine Screen,Urine Negative ng/mL (Cutoff= 300); Opiate Screen,Urine Negative ng/mL (Cutoff=300); Phencyclidine Screen,Urine Negative ng/mL (Cutoff=25)
--- NOTE | 2017-10-01 07:49 | Emergency Department Note ---
Disposition Clinical Impression: Delirium due to general medical condition Urinary tract infection Qualifiers: Urinary tract infection type: acute cystitis Hematuria presence: without hematuria Qualified Code(s): N30.00 - Acute cystitis without hematuria Disposition: Admitted As Inpatient Condition: Good Referrals: Addy Fraire MD [Primary Care Provider] - Forms: ED Satisfaction Letter General Adult HPI - General Chief complaint: ED Altered Mental Status Stated complaint: altered mental status Time Seen by Provider: 10/01/17 02:56 Source: family, EMS Limitations: altered mental status Nursing Notes Reviewed: Yes Vital Signs Reviewed: Yes - History of Present Illness Pain Scale: 7 - Related Data Home Medications Medication Instructions Recorded Confirmed Albuterol Sulfate [Albuterol 2 puff IH Q4H PRN 11/04/15 04/20/17 Inhaler] Fluticasone Propionate Nasal 2 spray NS BID 11/04/15 04/20/17 [Flonase] Apixaban [Eliquis] 5 mg PO BID 03/11/17 04/20/17 Nitroglycerin [Nitrostat] 0.4 mg SL Q5-6MIN PRN 03/11/17 04/20/17 Oxycodone HCl/Acetaminophen 1 tab PO TID PRN MDD 3 03/11/17 04/20/17 [Percocet 7.5-325 mg Tablet] Acetaminophen [Tylenol] 325 mg PO Q6HR PRN 03/17/17 04/20/17 Baclofen 1 tab PO TID PRN 04/20/17 04/20/17 Interferon Beta-1A/Albumin [Rebif 1 each IJ AD 04/20/17 04/20/17 44 Mcg/0.5 ml Syringe] Tizanidine HCl 2 tab PO BID 04/20/17 04/20/17 Previous Rx's Medication Instructions Recorded Lansoprazole [Prevacid] 30 mg PO DAILY #30 capsule. 11/12/15 Modafinil [Provigil] 200 mg PO BID #60 tablet 11/12/15 Pramipexole [Mirapex] 0.5 mg PO DAILY #30 tablet 11/12/15 Simvastatin [Zocor] 20 mg PO HS #30 tablet 11/12/15 Diltiazem CD (24hr) [Cardizem CD] 120 mg PO DAILY #30 cap.er.24h 03/20/17 Furosemide [Lasix] 20 mg PO DAILY PRN #30 tablet 03/20/17 predniSONE [PredniSONE] 10 mg PO DAILY #30 tablet 04/27/17 Allergies Allergy/AdvReac Type Severity Reaction Status Date / Time mannitol [From Reclast] Allergy Hives Verified 04/20/17 11:48 zoledronic acid Allergy Hives Verified 04/20/17 11:48 [From Reclast] adhesive tape AdvReac Rash Verified 04/20/17 11:48 aspirin AdvReac Nausea Verified 04/20/17 11:48 cephalexin [From Keflex] AdvReac STOMACH Verified 04/20/17 11:48 UPSET codeine AdvReac Abdominal Verified 04/20/17 11:48 Pain Iodinated Contrast- Oral and AdvReac Hives AND Verified 04/20/17 11:48 IV Dye BREATHING ISSUES Past Medical History - Past Medical History Medical history: Reports: arthritis, atrial fibrillation, CHF, COPD, coronary artery disease, CVA, DVT, GERD, hyperlipidemia, hypertension, migraine, myocardial infarction, RA, renal disease, other Surgical history: Reports: appendectomy, colectomy, orthopedic, other, pacemaker /AICD, other Psychiatric history: Reports: no psych history [employer] IN[employer] history: Reports: no [employer] history - Social History Smoking Status: Never smoker Smokeless Tobacco Status: No Alcohol use: Reports: none Drug use: Reports: none Physical Exam - General Limitations: altered mental status General appearance: appears intoxicated, obese Course Vital Signs Temperature 0 F L 10/01/17 00:17 Pulse Rate 0 10/01/17 00:17 Respiratory Rate 0 10/01/17 00:17 Blood Pressure 0/0 10/01/17 00:17 O2 Sat by Pulse Oximetry 0 10/01/17 00:17 Temperature 98.0 F 10/01/17 05:25 Pulse Rate 123 10/01/17 07:47 Respiratory Rate 18 10/01/17 07:47 Blood Pressure 108/75 10/01/17 07:47 O2 Sat by Pulse Oximetry 98 10/01/17 07:47 Oxygen Delivery Oxygen Delivery Room Air Medical Decision Making - Lab Data Result diagrams: 10/01/17 01:12 10/01/17 01:12 Lab Results 10/01/17 10/01/17 10/01/17 Range/Units 00:21 01:12 01:12 WBC 6.3 (4.3-11.1) K/mcL RBC 4.22 (3.82-4.97) M/mcL Hgb 10.8 L (11.5-15.4) g/dL Hct 35.4 (35.3-44.9) % MCV 83.9 (83.0-100.0) fL MCH 25.6 L (28.0-33.3) pg MCHC 30.5 L (31.6-35.5) g/dL RDW 18.7 H (11.5-14.5) % Plt Count 179 (140-400) K/mcL MPV 10.7 (9.4-12.4) fL Immature Gran % 0.3 (0-4) % Seg Neutrophils % 65.5 % Lymphocytes % 22.7 % Monocytes % 9.9 % Eosinophils % 1.0 % Basophils % 0.6 % Neutrophils # 4.1 (1.6-8.9) K/mcL Lymphocytes # 1.4 (0.6-4.6) K/mcL Monocytes # 0.6 (0.0-1.3) K/mcL Eosinophils # 0.1 (0.0-0.6) K/mcL Basophils # 0.0 (0.0-0.2) K/mcL Immature Plt Fraction 4.2 (1.1-6.1) % Sodium 142 (136-145) mEq/L Potassium 3.5 (3.5-5.1) mEq/L Chloride 106 (98-107) mEq/L Carbon Dioxide 19 L (23-29) mEq/L BUN 34 H (8-23) mg/dL Creatinine 1.81 H (0.60-1.20) mg/dL Est GFR ( Amer) 34 L (> 60) Est GFR (Non-Af Amer) 28 L (> 60) BUN/Creatinine Ratio 19 (6-26) Glucose 93 (70-105) mg/dL POC Glucose 92 (70-99) mg/dL Calculated Osmolality 301 H (280-300) Lactic Acid (0.5-2.2) mmol/L Calcium 9.9 (8.6-10.3) mg/dL Total Bilirubin 0.6 (0.3-1.0) mg/dL Direct Bilirubin 0.1 (0.0-0.2) mg/dL Indirect Bilirubin 0.5 (0.0-1.2) mg/dL AST 39 (13-39) Units/L ALT 19 (7-52) Units/L Alkaline Phosphatase 103 (34-104) Units/L Troponin I < 0.03 (< 0.04) ng/mL Serum Total Protein 7.5 (6.4-8.9) g/dL Albumin 4.6 (3.5-5.7) g/dL Globulin 2.9 (2.4-3.5) g/dL Albumin/Globulin Ratio 1.6 (1.1-2.2) Urine Color (Yellow) Urine Clarity (Clear) Urine pH (5.0-8.0) pH Units Ur Specific [place] (1.010-1.025) Urine Protein (Neg-Trace) mg/dL Urine Glucose (UA) (Normal) mg/dL Urine Ketones (Negative) mg/dL Urine Blood (Negative) Urine Nitrite (Negative) Urine Bilirubin (Negative) Urine Urobilinogen (Normal) mg/dL Ur Leukocyte Esterase (Negative) Urine Microscopic RBC (0-3) per hpf Urine Microscopic WBC (0-3) per hpf Ur Squamous Epith Cells (None-Few) per lpf Ur Renal Epithelial Cell (None-Few) per hpf Urine Bacteria (None-Few) per hpf Ur Culture Indicated? (NO) Salicylates (15.0-30.0) mg/dL Urine Opiates Screen (Qwvzjf=885) ng/mL Acetaminophen (10-20) mcg/mL Ur Barbiturates Screen (Hrjyku=256) ng/mL Ur Phencyclidine Scrn (Cutoff=25) ng/mL Ur Amphetamines Screen (Fxphci=9725) ng/mL U Benzodiazepines Scrn (Lpbzcb=539) ng/mL Urine Cocaine Screen (Cutoff= 300) ng/mL U Marijuana (THC) Screen (Cutoff = 50) ng/mL Ur Drug Screen Interp Ethyl Alcohol < 10 (Less than 10) mg/dL 10/01/17 10/01/17 10/01/17 Range/Units 01:12 04:36 04:36 WBC (4.3-11.1) K/mcL RBC (3.82-4.97) M/mcL Hgb (11.5-15.4) g/dL Hct (35.3-44.9) % MCV (83.0-100.0) fL MCH (28.0-33.3) pg MCHC (31.6-35.5) g/dL RDW (11.5-14.5) % Plt Count (140-400) K/mcL MPV (9.4-12.4) fL Immature Gran % (0-4) % Seg Neutrophils % % Lymphocytes % % Monocytes % % Eosinophils % % Basophils % % Neutrophils # (1.6-8.9) K/mcL Lymphocytes # (0.6-4.6) K/mcL Monocytes # (0.0-1.3) K/mcL Eosinophils # (0.0-0.6) K/mcL Basophils # (0.0-0.2) K/mcL Immature Plt Fraction (1.1-6.1) % Sodium (136-145) mEq/L Potassium (3.5-5.1) mEq/L Chloride (98-107) mEq/L Carbon Dioxide (23-29) mEq/L BUN (8-23) mg/dL Creatinine (0.60-1.20) mg/dL Est GFR ( Amer) (> 60) Est GFR (Non-Af Amer) (> 60) BUN/Creatinine Ratio (6-26) Glucose (70-105) mg/dL POC Glucose (70-99) mg/dL Calculated Osmolality (280-300) Lactic Acid (0.5-2.2) mmol/L Calcium (8.6-10.3) mg/dL Total Bilirubin (0.3-1.0) mg/dL Direct Bilirubin (0.0-0.2) mg/dL Indirect Bilirubin (0.0-1.2) mg/dL AST (13-39) Units/L ALT (7-52) Units/L Alkaline Phosphatase (34-104) Units/L Troponin I (< 0.04) ng/mL Serum Total Protein (6.4-8.9) g/dL Albumin (3.5-5.7) g/dL Globulin (2.4-3.5) g/dL Albumin/Globulin Ratio (1.1-2.2) Urine Color Yellow (Yellow) Urine Clarity Cloudy A (Clear) Urine pH 5.0 (5.0-8.0) pH Units Ur Specific [place] 1.020 (1.010-1.025) Urine Protein Negative (Neg-Trace) mg/dL Urine Glucose (UA) Normal (Normal) mg/dL Urine Ketones Trace H (Negative) mg/dL Urine Blood Negative (Negative) Urine Nitrite Negative (Negative) Urine Bilirubin Small H (Negative) Urine Urobilinogen Normal (Normal) mg/dL Ur Leukocyte Esterase Large H (Negative) Urine Microscopic RBC 0-3 (0-3) per hpf Urine Microscopic WBC 15-30 H (0-3) per hpf Ur Squamous Epith Cells Many H (None-Few) per lpf Ur Renal Epithelial Cell Few (None-Few) per hpf Urine Bacteria Moderate H (None-Few) per hpf Ur Culture Indicated? NO. A (NO) Salicylates < 2.5 L (15.0-30.0) mg/dL Urine Opiates Screen Negative (Sbrbqf=321) ng/mL Acetaminophen < 10 L (10-20) mcg/mL Ur Barbiturates Screen Negative (Mblxmi=317) ng/mL Ur Phencyclidine Scrn Negative (Cutoff=25) ng/mL Ur Amphetamines Screen Negative (Zphixk=3672) ng/mL U Benzodiazepines Scrn Negative (Ojnpmv=664) ng/mL Urine Cocaine Screen Negative (Cutoff= 300) ng/mL U Marijuana (THC) Screen Negative (Cutoff = 50) ng/mL Ur Drug Screen Interp See Below Ethyl Alcohol (Less than 10) mg/dL 10/01/17 Range/Units 06:13 WBC (4.3-11.1) K/mcL RBC (3.82-4.97) M/mcL Hgb (11.5-15.4) g/dL Hct (35.3-44.9) % MCV (83.0-100.0) fL MCH (28.0-33.3) pg MCHC (31.6-35.5) g/dL RDW (11.5-14.5) % Plt Count (140-400) K/mcL MPV (9.4-12.4) fL Immature Gran % (0-4) % Seg Neutrophils % % Lymphocytes % % Monocytes % % Eosinophils % % Basophils % % Neutrophils # (1.6-8.9) K/mcL Lymphocytes # (0.6-4.6) K/mcL Monocytes # (0.0-1.3) K/mcL Eosinophils # (0.0-0.6) K/mcL Basophils # (0.0-0.2) K/mcL Immature Plt Fraction (1.1-6.1) % Sodium (136-145) mEq/L Potassium (3.5-5.1) mEq/L Chloride (98-107) mEq/L Carbon Dioxide (23-29) mEq/L BUN (8-23) mg/dL Creatinine (0.60-1.20) mg/dL Est GFR ( Amer) (> 60) Est GFR (Non-Af Amer) (> 60) BUN/Creatinine Ratio (6-26) Glucose (70-105) mg/dL POC Glucose (70-99) mg/dL Calculated Osmolality (280-300) Lactic Acid 0.9 (0.5-2.2) mmol/L Calcium (8.6-10.3) mg/dL Total Bilirubin (0.3-1.0) mg/dL Direct Bilirubin (0.0-0.2) mg/dL Indirect Bilirubin (0.0-1.2) mg/dL AST (13-39) Units/L ALT (7-52) Units/L Alkaline Phosphatase (34-104) Units/L Troponin I (< 0.04) ng/mL Serum Total Protein (6.4-8.9) g/dL Albumin (3.5-5.7) g/dL Globulin (2.4-3.5) g/dL Albumin/Globulin Ratio (1.1-2.2) Urine Color (Yellow) Urine Clarity (Clear) Urine pH (5.0-8.0) pH Units Ur Specific [place] (1.010-1.025) Urine Protein (Neg-Trace) mg/dL Urine Glucose (UA) (Normal) mg/dL Urine Ketones (Negative) mg/dL Urine Blood (Negative) Urine Nitrite (Negative) Urine Bilirubin (Negative) Urine Urobilinogen (Normal) mg/dL Ur Leukocyte Esterase (Negative) Urine Microscopic RBC (0-3) per hpf Urine Microscopic WBC (0-3) per hpf Ur Squamous Epith Cells (None-Few) per lpf Ur Renal Epithelial Cell (None-Few) per hpf Urine Bacteria (None-Few) per hpf Ur Culture Indicated? (NO) Salicylates (15.0-30.0) mg/dL Urine Opiates Screen (Vquoqs=997) ng/mL Acetaminophen (10-20) mcg/mL Ur Barbiturates Screen (Ffizkk=885) ng/mL Ur Phencyclidine Scrn (Cutoff=25) ng/mL Ur Amphetamines Screen (Qqfslz=3023) ng/mL U Benzodiazepines Scrn (Vkwotn=374) ng/mL Urine Cocaine Screen (Cutoff= 300) ng/mL U Marijuana (THC) Screen (Cutoff = 50) ng/mL Ur Drug Screen Interp Ethyl Alcohol (Less than 10) mg/dL Attestation Statement - Attestation Attestation: I, Kameron Lopes MD, personally evaluated this patient and discussed their management with the resident physician. I reviewed the resident's note and agree with the documented findings, medical decision making, and plan of care. 66-year-old female presents to the emergency department with a complaint of neck and upper back pain. She also apparently has been exhibiting some bizarre behavior and appears to have altered mental status. She has a history of MS. Patient having writhing movements which she states is typical for her from her MS. Patient however also complained of having bugs and spiders crawling on her and apparently hallucinating. Patient received Ativan and Benadryl in the emergency department. She became very sedated from these medications. She was observed throughout the night. On examination patient is well-developed well-nourished elderly female in no acute distress. There is no cyanosis or diaphoresis. Breath sounds are clear and equal bilaterally. Heart regular rate and rhythm. Abdomen soft and nontender with normal bowel sounds. Labs reviewed. UTI noted. Chest x-ray negative. Head CT negative. The hospitalist was consulted and accepted admission of the patient.
[2017-10-01] MEDS ORDERED: Naloxone 0.4 MG/ML INJ IVP PRN (08:18)
[2017-10-01] MEDS ORDERED: Baclofen 10 MG TABLET PO PRN (08:20)
[2017-10-01] MEDS ORDERED: Acetaminophen 325 MG TABLET PO PRN (08:20)
[2017-10-01] MEDS ORDERED: tiZANidine 4 MG TABLET PO SCH (09:00)
--- NOTE | 2017-10-01 09:49 | Internal Med History&Physical ---
Date of Encounter: 10/02/17 Time of Encounter: 09:30 Internal Medicine - H&P: HPI Chief complaint: Neck pain and urinary urgency History of present illness: Ms. Roberts is a 66 year old female with pmh of multiple sclerosis per patient, atrial fibrillation, GERD presenting with complaints of of neck has been hurting , upper back pain, urinary urgency and hasn't slept in 2 days. Patient also admits to occasional fevers and chills. Patient is easily distracted and is unable to focus long enough to provide a detailed history. she has rhythmic movements of her upper extremities and continues to use the bed sheet to wipe her mouth which she says is full of saliva. In the ER, urine was positive for leeukocyte esterase and she was started on rocephin for UTI Past Med Surg Social Fam HX - Past Medical History Medical history: arthritis, atrial fibrillation, CHF, COPD, coronary artery disease, CVA, DVT, GERD, hyperlipidemia, hypertension, migraine, myocardial infarction, RA, renal disease, other Additional medical history: Multiple sclerosis Psychiatric history: no psych history - Past Surgical History Surgical History: appendectomy, colectomy, orthopedic, other, pacemaker/AICD, other Additional surgical history: NECK SURGERY, shoulder sx - Social History Smoking Status: Never smoker Smokeless Tobacco Status: No Alcohol use: none Drug use: none - Family History Father Hx Family Cardiac Disorders: Yes Hx Family Respiratory Disorders: No Hx Family Cancer: No Hx Family GI Disorders: No Hx Family Endocrine Disorder: No Hx Family Neuromuscular Disorders: No Hx Family Neurologic Disorders: No Hx Family HEENT Disorders: No Hx Family Autoimmune Disorders: No Internal Medicine - H&P: Meds Albuterol Sulfate [Albuterol Inhaler] 2 puff IH Q4H PRN 11/04/15 [History] Fluticasone Propionate Nasal [Flonase] 2 spray NS BID 11/04/15 [History] Lansoprazole [Prevacid] 30 mg PO DAILY #30 capsule. 11/12/15 [Rx] Pramipexole [Mirapex] 0.5 mg PO DAILY #30 tablet 11/12/15 [Rx] Simvastatin [Zocor] 20 mg PO HS #30 tablet 11/12/15 [Rx] Apixaban [Eliquis] 5 mg PO BID 03/11/17 [History] Nitroglycerin [Nitrostat] 0.4 mg SL Q5-6MIN PRN 03/11/17 [History] Oxycodone HCl/Acetaminophen [Percocet 7.5-325 mg Tablet] 1 tab PO TID PRN MDD 3 03/11/17 [History] Acetaminophen [Tylenol] 325 mg PO Q6HR PRN 03/17/17 [History] Diltiazem CD (24hr) [Cardizem CD] 120 mg PO DAILY #30 cap.er.24h 03/20/17 [Rx] Furosemide [Lasix] 20 mg PO DAILY PRN #30 tablet 03/20/17 [Rx] Baclofen 20 mg PO TID PRN 04/20/17 [History] Interferon Beta-1A/Albumin [Rebif 44 Mcg/0.5 ml Syringe] 1 each IJ AD 04/20/17 [ History] Tizanidine HCl 4 mg PO BID 04/20/17 [History] predniSONE [PredniSONE] 10 mg PO DAILY #30 tablet 04/27/17 [Rx] Metoprolol Succinate [Toprol Xl] 50 mg PO DAILY 10/01/17 [History] Modafinil [Provigil] 200 mg PO TID 10/01/17 [History] Pantoprazole Sodium [Protonix] 40 mg PO DAILY 10/01/17 [History] Spironolactone [Aldactone] 50 mg PO DAILY 10/01/17 [History] 3 Allergy/AdvReac Type Severity Reaction Status Date / Time mannitol [From Reclast] Allergy Hives Verified 04/20/17 11:48 zoledronic acid Allergy Hives Verified 04/20/17 11:48 [From Reclast] adhesive tape AdvReac Rash Verified 04/20/17 11:48 aspirin AdvReac Nausea Verified 04/20/17 11:48 cephalexin [From Keflex] AdvReac STOMACH Verified 04/20/17 11:48 UPSET codeine AdvReac Abdominal Verified 04/20/17 11:48 Pain Iodinated Contrast- Oral and AdvReac Hives AND Verified 04/20/17 11:48 IV Dye BREATHING ISSUES All Systems PM: A 10-system review of systems was performed and is negative for pertinent findings except as documented above in the HPI. - Constitutional Constitutional: fever(s), no chills, no night sweats - EENT Eyes: no change in vision, no discharge, no pain, no photophobia Ears: no ear discharge, no ear pain, no tinnitus Nose, mouth and throat: no dysphagia, no nasal discharge, no neck pain, no sore throat - Cardiovascular Cardiovascular ROS IM: no chest pain, no diaphoresis, no dyspnea, no lightheadedness, no palpitations, no syncope - Respiratory Respiratory: no cough, no dyspnea, no wheezing, no excessive phlegm production - Gastrointestinal Gastrointestinal: no abdominal pain, no diarrhea, no hematemesis, no hematochezia, no melena, no nausea, no vomiting - Genitourinary Genitourinary: urinary urgency, no change in urinary stream, no dysuria, no flank pain, no hematuria - Musculoskeletal Musculoskeletal ROS IM: no numbness, no tingling - Integumentary Integumentary IM: no rash, no unusual bruising - Neurological Neurological ROS: no confusion, no convulsions, no focal weakness, no numbness, no tingling, no tremor(s) - Hematologic/Lymphatic Hematologic/Lymphatic: no easy bruising - Constitutional Vitals: Temp Pulse Resp BP Pulse Ox 98.1 F 123 18 108/75 98 10/01/17 08:02 10/01/17 07:47 10/01/17 07:47 10/01/17 07:47 10/01/17 07:47 Exam: Easily distracted, uncoordinated movements of upper extremity - Head Head exam: Present: atraumatic, normocephalic - Eye Eye exam: Present: PERRL, conjuntiva pink, sclera anicteric Pupils: Present: PERRL - Neck Neck exam general surgery: Present: supple, trachea midline. Absent: lymphadenopathy - Respiratory Respiratory exam: Present: CTAB. Absent: accessory muscle use, rales, rhonchi, wheezes - Cardiovascular Cardiovascular exam: Present: RRR, +S1, +S2. Absent: diastolic murmur, gallop, rubs, systolic murmur - GI/Abdominal GI/Abdominal exam: Present: normal bowel sounds, soft, no peritoneal signs. Absent: distended, tenderness - Extremities Exam Extremities exam: Present: warm, radial pulses palpable and symmetrical. Absent : calf tenderness, cyanotic, pedal edema - Neurological Exam Neurological exam: Present: CN II-XII intact, oriented X3, no focal deficits. Absent: pronater drift, facial droop, speech deficit - Skin Skin exam: Present: dry, intact Internal Med - H&P Results - Labs CBC & Chem 7: 10/02/17 05:24 10/02/17 05:24 - Assessment and plan (1) Acute kidney injury Current Visit: No Status: Acute Assessment and plan: baseline creatinie is 0.9. Creatinine was 1.8 today. Will give IV fluids (2) Urinary tract infection Current Visit: Yes Status: Acute Assessment and plan: Start on IV ceftriaxone , IV fluids. Follow up cultures Qualifiers: Urinary tract infection type: acute cystitis Hematuria presence: without hematuria Qualified Code(s): N30.00 - Acute cystitis without hematuria (3) Multiple sclerosis Current Visit: Yes Status: Acute Assessment and plan: Query MS flare. Unclear if her movement disorder with uncoordination is related to an MS flare. Neurology has been consulted. Will hold off on MRI brain and Iv steroids pending neuro recs (4) Atrial fibrillation Current Visit: Yes Status: Acute Assessment and plan: Continue diltiazem and apixaban Qualifiers: Qualified Code(s): I48.91 - Unspecified atrial fibrillation (5) DVT prophylaxis Current Visit: No Status: Acute Assessment and plan: heparin sc (6) Dyslipidemia Current Visit: Yes Status: Acute Assessment and plan: Continue simvastatin - Time Spent With Patient Total time spent is greater than 50% in coordination of care (as documented) at patient's floor/unit and/or counseling patient:
[2017-10-01] MEDS: Apixaban 5 MG TABLET PO SCH ×2 (10:23→20:14)
[2017-10-01] MEDS: predniSONE 10 MG TABLET PO SCH (10:23)
[2017-10-01] MEDS: Diltiazem CD (24hr) 120 MG CAPSULE PO SCH (10:23)
[2017-10-01] MEDS: Fluticasone Propionate Nasal 50 MCG/SPRAY BOTTLE NS SCH ×2 (10:23→20:15)
[2017-10-01] MEDS: 0.9 % Sodium Chloride 1,000 ML IVC SCH ×3 (10:25→20:19)
--- NOTE | 2017-10-01 10:38 | Neurology - Consult Note ---
<John Aguilar R - Last Filed: 10/01/17 10:31> Date of Encounter: 10/01/17 Time of Encounter: 10:31 History of Present Illness HPI: Ms. Roberts is a 66 year old female presented overnight from home by EMS for neck and back pain. In the ED she was found to have altered mental status and rhythmic extremity movements. Per patient, she has a 30 year history of MS, her neurologist is Dr. Ken in [place]. Patient states she has been compliant with her treatment. Subjectively she feels that these extremity movements are normal for her and a result of MS. She does admit to feeling generalized weakness, worse than baseline. Past Med Surg Social Fam HX - Past Medical History Medical history: arthritis, atrial fibrillation, CHF, COPD, coronary artery disease, CVA, DVT, GERD, hyperlipidemia, hypertension, migraine, myocardial infarction, RA, renal disease, other Additional medical history: Multiple sclerosis Psychiatric history: no psych history - Past Surgical History Surgical History: appendectomy, colectomy, orthopedic, other, pacemaker/AICD, other Additional surgical history: NECK SURGERY, shoulder sx - Social History Smoking Status: Never smoker Smokeless Tobacco Status: No Alcohol use: none Drug use: none - Family History Father Hx Family Cardiac Disorders: Yes Hx Family Respiratory Disorders: No Hx Family Cancer: No Hx Family GI Disorders: No Hx Family Endocrine Disorder: No Hx Family Neuromuscular Disorders: No Hx Family Neurologic Disorders: No Hx Family HEENT Disorders: No Hx Family Autoimmune Disorders: No Medications and Allergies Albuterol Sulfate [Albuterol Inhaler] 2 puff IH Q4H PRN 11/04/15 [History] Fluticasone Propionate Nasal [Flonase] 2 spray NS BID 11/04/15 [History] Lansoprazole [Prevacid] 30 mg PO DAILY #30 capsule. 11/12/15 [Rx] Modafinil [Provigil] 200 mg PO BID #60 tablet 11/12/15 [Rx] Pramipexole [Mirapex] 0.5 mg PO DAILY #30 tablet 11/12/15 [Rx] Simvastatin [Zocor] 20 mg PO HS #30 tablet 11/12/15 [Rx] Apixaban [Eliquis] 5 mg PO BID 03/11/17 [History] Nitroglycerin [Nitrostat] 0.4 mg SL Q5-6MIN PRN 03/11/17 [History] Oxycodone HCl/Acetaminophen [Percocet 7.5-325 mg Tablet] 1 tab PO TID PRN MDD 3 03/11/17 [History] Acetaminophen [Tylenol] 325 mg PO Q6HR PRN 03/17/17 [History] Diltiazem CD (24hr) [Cardizem CD] 120 mg PO DAILY #30 cap.er.24h 03/20/17 [Rx] Furosemide [Lasix] 20 mg PO DAILY PRN #30 tablet 03/20/17 [Rx] Baclofen 1 tab PO TID PRN 04/20/17 [History] Interferon Beta-1A/Albumin [Rebif 44 Mcg/0.5 ml Syringe] 1 each IJ AD 04/20/17 [ History] Tizanidine HCl 2 tab PO BID 04/20/17 [History] predniSONE [PredniSONE] 10 mg PO DAILY #30 tablet 04/27/17 [Rx] 3 Allergy/AdvReac Type Severity Reaction Status Date / Time mannitol [From Reclast] Allergy Hives Verified 04/20/17 11:48 zoledronic acid Allergy Hives Verified 04/20/17 11:48 [From Reclast] adhesive tape AdvReac Rash Verified 04/20/17 11:48 aspirin AdvReac Nausea Verified 04/20/17 11:48 cephalexin [From Keflex] AdvReac STOMACH Verified 04/20/17 11:48 UPSET codeine AdvReac Abdominal Verified 04/20/17 11:48 Pain Iodinated Contrast- Oral and AdvReac Hives AND Verified 04/20/17 11:48 IV Dye BREATHING ISSUES All Systems: The remainder of the systems were reviewed and are negative Review of Systems: ROS positive for generalized weakness, neck and back pain, blurry vision, and fatigue Physical Examination - Vital Signs Vital Signs: Initial Vital Signs Temp Pulse Resp BP Pulse Ox 0 F L 0 0 0/0 0 10/01/17 00:17 10/01/17 00:17 10/01/17 00:17 10/01/17 00:17 10/01/17 00:17 - Exam Exam: General: Patient is sleeping in bed, no extremity movement while asleep. Difficult to arouse but alert once awake. Mental Status: Patient is awake, alert, and oriented to person, place, and time. Mental processes appear slow, able to follow commands but she is easily distracted requiring frequent redirection. Cranial Nerves: CN II-VII are grossly intact bilaterally. Motor Exam: Generalized weakness. 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 Bilateral lower extremities 4/5 strength in hip flexors, quadriceps, hamstrings, gastrocnemius, tibialis anterior. Restless movement of the upper and lower extremities frequently observed. Cerebellar exam: With significant prompting patient is able to complete finger- nose and rapid alternative movement tests. Results - Laboratory Findings CBC and BMP: 10/01/17 01:12 10/01/17 01:12 Abnormal lab findings: Abnormal lab results Hgb 10.8 g/dL (11.5-15.4) L 10/01/17 01:12 MCH 25.6 pg (28.0-33.3) L 10/01/17 01:12 MCHC 30.5 g/dL (31.6-35.5) L 10/01/17 01:12 RDW 18.7 % (11.5-14.5) H 10/01/17 01:12 Carbon Dioxide 19 mEq/L (23-29) L 10/01/17 01:12 BUN 34 mg/dL (8-23) H 10/01/17 01:12 Creatinine 1.81 mg/dL (0.60-1.20) H 10/01/17 01:12 Est GFR ( Amer) 34 (> 60) L 10/01/17 01:12 Est GFR (Non-Af Amer) 28 (> 60) L 10/01/17 01:12 Calculated Osmolality 301 (280-300) H 10/01/17 01:12 Urine Clarity Cloudy (Clear) A 10/01/17 04:36 Urine Ketones Trace mg/dL (Negative) H 10/01/17 04:36 Urine Bilirubin Small (Negative) H 10/01/17 04:36 Ur Leukocyte Esterase Large (Negative) H 10/01/17 04:36 Urine Microscopic WBC 15-30 per hpf (0-3) H 10/01/17 04:36 Ur Squamous Epith Cells Many per lpf (None-Few) H 10/01/17 04:36 Urine Bacteria Moderate per hpf (None-Few) H 10/01/17 04:36 Ur Culture Indicated? NO. (NO) A 10/01/17 04:36 Salicylates < 2.5 mg/dL (15.0-30.0) L 10/01/17 01:12 Acetaminophen < 10 mcg/mL (10-20) L 10/01/17 01:12 Consult Discharge Plan - Plan Referrals: Addy Fraire MD [Primary Care Provider] - <Paulette Hernandez I - Last Filed: 10/01/17 12:20> Date of Encounter: 10/01/17 Assessment and Plan (1) Altered mental status Current Visit: No Status: Resolved This patient who has an history of advanced multiple sclerosis along with multiple other medical conditions admitted with UTI but noted to have significant hallucinations and mental status changes and confusion. Patient also noted to have significant akathisia on neurological examination. Her mental status changes and hallucinations are likely combination of UTI but strongly suspect suspect that symptoms could be related to medication overuse or at the same time could be due to withdrawal she does acknowledges that she is been a lot of pain medication. Next line according to the family though she did have a nurse who medication in but she takes all her medication by herself and would not allow anyone else in the family to look into it they have noticed that she is been having these for recurrent hallucinations and also these abnormal movements for off and on for some time at the same time patient also get upset and confused quite easily and there are times that she could be very aggressive. Considering overall symptoms suspect that these are likely due to underlying infection and medications especially if she is on narcotics high risk for the withdrawal. She need to be watched for any withdrawal symptoms on the other hand suggest continue on antibiotics for underlying infection we will check for other metabolic dysfunction Though there is a concern that her symptoms could be related to MS exacerbation but overall I really doubt that these symptoms are related to MS exacerbation as is no focal motor weakness no cranial nerve involvement and symptoms are more of acute delirium that anything else could do an MRI of the brain to look for any new lesions she is allergic to IV contrast would not be able to give contrast I would recommend avoiding any steroids at this time as would likely make her mental status changes worse probably would make her more delirious and aggressive Especially when clinically suspicious off MS exacerbation is less . Qualifiers: Altered mental status type: delirium Qualified Code(s): R41.0 - Disorientation, unspecified (2) Multiple sclerosis Current Visit: No Status: Chronic Pt was seen and examined, my medical decision was reviewed with the Resident Physician, I agree with the documented findings, disposition and treatment plas as described except to the extent set forth below Patient is a long history of multiple sclerosis followed up by neurology, Considering current symptoms less likely it is an MS exacerbation can do an MRI of the brain to exclude any other new lesions.syeda Hernandez MD History of Present Illness HPI: Ms. Roberts is a 66 year old female All Systems: The remainder of the systems were reviewed and are negative Physical Examination - Vital Signs Vital Signs: Initial Vital Signs Temp Pulse Resp BP Pulse Ox 0 F L 0 0 0/0 0 10/01/17 00:17 10/01/17 00:17 10/01/17 00:17 10/01/17 00:17 10/01/17 00:17 Results - Laboratory Findings CBC and BMP: 10/01/17 01:12 10/01/17 01:12 Abnormal lab findings: Abnormal lab results Hgb 10.8 g/dL (11.5-15.4) L 10/01/17 01:12 MCH 25.6 pg (28.0-33.3) L 10/01/17 01:12 MCHC 30.5 g/dL (31.6-35.5) L 10/01/17 01:12 RDW 18.7 % (11.5-14.5) H 10/01/17 01:12 Carbon Dioxide 19 mEq/L (23-29) L 10/01/17 01:12 BUN 34 mg/dL (8-23) H 10/01/17 01:12 Creatinine 1.81 mg/dL (0.60-1.20) H 10/01/17 01:12 Est GFR ( Amer) 34 (> 60) L 10/01/17 01:12 Est GFR (Non-Af Amer) 28 (> 60) L 10/01/17 01:12 Calculated Osmolality 301 (280-300) H 10/01/17 01:12 Urine Clarity Cloudy (Clear) A 10/01/17 04:36 Urine Ketones Trace mg/dL (Negative) H 10/01/17 04:36 Urine Bilirubin Small (Negative) H 10/01/17 04:36 Ur Leukocyte Esterase Large (Negative) H 10/01/17 04:36 Urine Microscopic WBC 15-30 per hpf (0-3) H 10/01/17 04:36 Ur Squamous Epith Cells Many per lpf (None-Few) H 10/01/17 04:36 Urine Bacteria Moderate per hpf (None-Few) H 10/01/17 04:36 Ur Culture Indicated? NO. (NO) A 10/01/17 04:36 Salicylates < 2.5 mg/dL (15.0-30.0) L 10/01/17 01:12 Acetaminophen < 10 mcg/mL (10-20) L 10/01/17 01:12
[2017-10-01 13:43] LABS: Folate 16.6 ng/mL (3.0-16.0)
--- NOTE | 2017-10-01 13:45 | Event Note ---
Date of Encounter: 10/01/17 Time of Encounter: 13:40 A review by [facility] and a member of the utilization review committee has determined the status is to be changed to observation using condition code 44. I Malena Miller MD am in agreement that the status be changed to observation.
[2017-10-01] MEDS: tiZANidine 4 MG TABLET PO SCH ×2 (15:27→20:14)
--- NOTE | 2017-10-01 17:46 | Electrocardiograph Report ---
[address] [place] [address] Test Date: 2017-10-01 Pat Name: Rocío Roberts Department: 104 Room: 3B45 Gender: F Director Epidemiology: : 1950 Requested By: Joaquina Marquez Order Number: [id number] Reading MD: Orlando Kramer Measurements Intervals [place] Rate: 79 P: 39 NC: 177 QRS: 10 QRSD: 99 T: 51 QT: 409 QTc: 443 Interpretive Statements SINUS RHYTHM POSSIBLE LATERAL MYOCARDIAL INFARCTION, PROBABLY OLD Electronically Signed On 10-01-2017 17:44:10 EDT by Orlando Kramer
[2017-10-02 06:06] LABS: Basophils % 0.9 %; Eosinophils % 1.2 %; Hematocrit 29.3 % (35.3-44.9); Hemoglobin 9.2 g/dL (11.5-15.4); Immature Granulocytes % 0.3 % (0-4); Lymphocytes # 1.4 K/mcL (0.6-4.6); Lymphocytes % 42.9 %; Mean Corpuscular HGB Conc 31.4 g/dL (31.6-35.5); Mean Corpuscular Hemoglobin 26.9 pg (28.0-33.3); Mean Corpuscular Volume 85.7 fL (83.0-100.0); Mean Platelet Volume 10.9 fL (9.4-12.4); Monocytes # 0.3 K/mcL (0.0-1.3); Monocytes % 10.6 %; Neutrophils # 1.4 K/mcL (1.6-8.9); Platelet Count 120 K/mcL (140-400); Red Blood Count 3.42 M/mcL (3.82-4.97); Red Cell Distribution Width 18.8 % (11.5-14.5); Segmented Neutrophils % 44.1 %
[2017-10-02 06:17] LABS: Calcium 8.7 mg/dL (8.6-10.3); Phosphorous 3.1 mg/dL (2.7-4.5); Potassium 2.9 mEq/L (3.5-5.1)
[2017-10-02] MEDS ORDERED: Potassium Effervescent 25 MEQ TABLET.EFF PO ONE (06:41)
[2017-10-02] MEDS: Diltiazem CD (24hr) 120 MG CAPSULE PO SCH (08:05)
[2017-10-02] MEDS: Apixaban 5 MG TABLET PO SCH ×2 (08:05→20:55)
[2017-10-02] MEDS: predniSONE 10 MG TABLET PO SCH (08:05)
[2017-10-02] MEDS: tiZANidine 4 MG TABLET PO SCH ×3 (08:06→20:56)
[2017-10-02] MEDS: Fluticasone Propionate Nasal 50 MCG/SPRAY BOTTLE NS SCH ×2 (08:06→20:56)
[2017-10-02] MEDS ORDERED: Cyanocobalamin (B-12) 1,000 MCG/ML VIAL IM ONE (14:57)
--- NOTE | 2017-10-02 14:57 | Neurology Progress Note ---
Date of Encounter: 10/02/17 Time of Encounter: 14:55 Assessment and Plan (1) Altered mental status Current Visit: No Status: Resolved Patient mental status changes has resolved she seems to be back to her baseline look like completely different person. Her movement that she been having it earlier seems to have resolved. Her labs did shows abnormal TSH at the same time low vitamin B12. As far as MS is concerned as mentioned earlier I really doubt that it is an MS exacerbation it was likely related to underlying UTI as well as the medication side effect. Suggest to avoid narcotics as possible at the same time her home nurse may need to look into her medication that what she is been taking on a regular basis as likely the main contributing factor for her mental status changes. Replaced B12 perhaps a may need adjustment and medication for her thyroid dysfunction. On the other hand if she remains a stable could be discharged to home with follow-up with her neurologist for MS. Qualifiers: Altered mental status type: delirium Qualified Code(s): R41.0 - Disorientation, unspecified (2) Multiple sclerosis Current Visit: No Status: Chronic Objective - Constitutional Vitals: Temp Pulse Resp BP Pulse Ox 97.7 F 95 16 124/74 95 10/02/17 11:40 10/02/17 11:40 10/02/17 11:40 10/02/17 11:40 10/02/17 11:40 - Neurological Exam Motor Examination: Present: grossly full strength in all extremities Sensation intact: Present: intact Reflex and gait examination: intact Reflexes: Biceps: 2+, Triceps: 2+, Brachioradialis: 2+, Patella: 1+, Achilles: 1 + Mental Status Examination: Present: awake, alert, oriented to person, oriented to place, oriented to time, follows commands appropriately, answers questions appropriately Cranial nerve examination: Present: PERRL, EOMI, visual frias intact, no facial asymmetry is present Results - Laboratory Findings CBC and BMP: 10/02/17 05:24 10/02/17 05:24 Abnormal lab findings: Abnormal lab results WBC 3.2 K/mcL (4.3-11.1) L 10/02/17 05:24 RBC 3.42 M/mcL (3.82-4.97) L 10/02/17 05:24 Hgb 9.2 g/dL (11.5-15.4) L D 10/02/17 05:24 Hct 29.3 % (35.3-44.9) L 10/02/17 05:24 MCH 26.9 pg (28.0-33.3) L 10/02/17 05:24 MCHC 31.4 g/dL (31.6-35.5) L 10/02/17 05:24 RDW 18.8 % (11.5-14.5) H 10/02/17 05:24 Plt Count 120 K/mcL (140-400) L 10/02/17 05:24 Neutrophils # 1.4 K/mcL (1.6-8.9) L 10/02/17 05:24 Potassium 2.9 mEq/L (3.5-5.1) L 10/02/17 05:24 Chloride 111 mEq/L (98-107) H 10/02/17 05:24 Carbon Dioxide 19 mEq/L (23-29) L 10/02/17 05:24 Est GFR ( Amer) 59 (> 60) L 10/02/17 05:24 Est GFR (Non-Af Amer) 49 (> 60) L 10/02/17 05:24 Vitamin B12 245 pg/mL (250-1100) L 10/01/17 12:37 Folate 16.6 ng/mL (3.0-16.0) H 10/01/17 12:37 TSH 0.307 mcIU/mL (0.340-5.600) L 10/01/17 12:37 Urine Clarity Cloudy (Clear) A 10/01/17 04:36 Urine Ketones Trace mg/dL (Negative) H 10/01/17 04:36 Urine Bilirubin Small (Negative) H 10/01/17 04:36 Ur Leukocyte Esterase Large (Negative) H 10/01/17 04:36 Urine Microscopic WBC 15-30 per hpf (0-3) H 10/01/17 04:36 Ur Squamous Epith Cells Many per lpf (None-Few) H 10/01/17 04:36 Urine Bacteria Moderate per hpf (None-Few) H 10/01/17 04:36 Ur Culture Indicated? NO. (NO) A 10/01/17 04:36 Salicylates < 2.5 mg/dL (15.0-30.0) L 10/01/17 01:12 Acetaminophen < 10 mcg/mL (10-20) L 10/01/17 01:12 Consult Discharge Plan - Plan Referrals: Addy Fraire MD [Primary Care Provider] -
[2017-10-02] MEDS: Cyanocobalamin (B-12) 1,000 MCG TABLET PO SCH (15:13)
[2017-10-02] MEDS: *HR* OxyCODONE/APAP 7.5/325 TABLET PO PRN (15:49)
--- NOTE | 2017-10-02 18:55 | Internal Med Progress Note ---
Date of Encounter: 10/02/17 Time of Encounter: 10:10 - Assessment and plan (1) Acute kidney injury Current Visit: Yes Status: Acute Assessment and plan: Improving. Sr Cr 1.11, GFR 49 Avoid nephrotoxins Gentle IVF hydration. (2) Urinary tract infection Current Visit: Yes Status: Acute Assessment and plan: Urine indicative of UTI. Continue IV Rocephin. Urine culture ordered and pending , follow and adjust antibiotics as needed. Qualifiers: Urinary tract infection type: acute cystitis Hematuria presence: without hematuria Qualified Code(s): N30.00 - Acute cystitis without hematuria (3) DVT prophylaxis Current Visit: Yes Status: Acute Assessment and plan: SCDs ordered. (4) Multiple sclerosis Current Visit: Yes Status: Acute Assessment and plan: Likely not MS flare, Pt has been seen by neurology and agrees that symptoms most likely are related to infection and/or overmedication. Recommend that pt have nursing/home health /family set up medications and monitor useage. Monitor and limit narcotic pain medications. (5) Atrial fibrillation Current Visit: Yes Status: Acute Assessment and plan: Continue diltiazem and apixaban Continue telemetry Qualifiers: Atrial fibrillation type: chronic Qualified Code(s): I48.2 - Chronic atrial fibrillation (6) Dyslipidemia Current Visit: Yes Status: Acute Assessment and plan: Chronic. Continue home medications. - Time Spent With Patient Total time spent is greater than 50% in coordination of care (as documented) at patient's floor/unit and/or counseling patient: less than 15 minutes - Subjective Interval history: Pt was seen and assessed at bedside at 1010. Pt is alert and awake, answers questions appropriately. She denies pain, chest pain, SOB, n/v/d, diaphoresis, headache, or vision changes. Pt states that she is feeling better and has returned to baseline. - Constitutional Vitals: Temp Pulse Resp BP Pulse Ox 97.7 F 69 14 131/81 96 10/02/17 15:39 10/02/17 15:39 10/02/17 15:39 10/02/17 15:39 10/02/17 15:39 General appearance: Present: cooperative, A&O X 3, pleasant, no acute distress, answers questions appropriately - Head Head exam: Present: atraumatic, normal inspection, normocephalic - Eye Eye exam: Present: normal appearance, conjuntiva pink, sclera anicteric - Neck Neck exam general surgery: Present: supple, trachea midline. Absent: lymphadenopathy, tenderness - Respiratory Respiratory exam: Present: CTAB. Absent: accessory muscle use, rales, rhonchi, wheezes - Cardiovascular Cardiovascular exam: Present: RRR, +S1, +S2. Absent: diastolic murmur, gallop, rubs, systolic murmur - GI/Abdominal GI/Abdominal exam: Present: normal bowel sounds, soft. Absent: distended, hepatomegaly, tenderness - Extremities Exam Extremities exam: Present: warm, radial pulses palpable and symmetrical. Absent : calf tenderness, cyanotic, pedal edema, tenderness - Neurological Exam Neurological exam: Present: alert, oriented X3, no focal deficits. Absent: facial droop, speech deficit - Skin Skin exam: Present: dry, intact, warm. Absent: rash Internal Medicine: Result - Labs CBC & Chem 7: 10/02/17 05:24 10/02/17 05:24 Labs: Short CBC 10/02/17 Range/Units 05:24 WBC 3.2 L (4.3-11.1) K/mcL Hgb 9.2 L D (11.5-15.4) g/dL Hct 29.3 L (35.3-44.9) % Plt Count 120 L (140-400) K/mcL Neutrophils # 1.4 L (1.6-8.9) K/mcL BMP 10/02/17 05:24 Sodium 140 Potassium 2.9 L Chloride 111 H Carbon Dioxide 19 L BUN 22 Creatinine 1.11 Glucose 104 Calcium 8.7 Consult Discharge Plan - Plan Referrals: Addy Fraire MD [Primary Care Provider] -
[2017-10-02] MEDS: Baclofen 10 MG TABLET PO PRN (21:09)
[2017-10-02] MEDS ORDERED: Melatonin 3 MG TABLET PO PRN (21:27)
[2017-10-03 06:26] LABS: Basophils % 0.6 %; Eosinophils # 0.1 K/mcL (0.0-0.6); Eosinophils % 1.7 %; Hematocrit 28.1 % (35.3-44.9); Hemoglobin 8.6 g/dL (11.5-15.4); Immature Granulocytes % 0.3 % (0-4); Lymphocytes # 1.3 K/mcL (0.6-4.6); Lymphocytes % 37.6 %; Mean Corpuscular HGB Conc 30.6 g/dL (31.6-35.5); Mean Corpuscular Hemoglobin 26.6 pg (28.0-33.3); Mean Platelet Volume 10.3 fL (9.4-12.4); Monocytes # 0.3 K/mcL (0.0-1.3); Monocytes % 9.1 %; Neutrophils # 1.8 K/mcL (1.6-8.9); Platelet Count 118 K/mcL (140-400); Red Blood Count 3.23 M/mcL (3.82-4.97); Red Cell Distribution Width 19.3 % (11.5-14.5); Segmented Neutrophils % 50.7 %
[2017-10-03 06:41] LABS: BUN/Creatinine Ratio 18 (6-26); Blood Urea Nitrogen 19 mg/dL (8-23); Carbon Dioxide 24 mEq/L (23-29); Chloride 111 mEq/L (98-107); Glucose 118 mg/dL (70-105); Osmolality,Calculated 295 (280-300); Potassium 3.7 mEq/L (3.5-5.1); Sodium 141 mEq/L (136-145); eGFR For African Americans > 60 (> 60); eGFR For Non-African Americans 53 (> 60)
[2017-10-03] MEDS: Fluticasone Propionate Nasal 50 MCG/SPRAY BOTTLE NS SCH (08:16)
[2017-10-03] MEDS: Cyanocobalamin (B-12) 1,000 MCG TABLET PO SCH (08:19)
[2017-10-03] MEDS: Diltiazem CD (24hr) 120 MG CAPSULE PO SCH (08:19)
[2017-10-03] MEDS: Apixaban 5 MG TABLET PO SCH (08:19)
[2017-10-03] MEDS: tiZANidine 4 MG TABLET PO SCH ×2 (08:19→14:35)
[2017-10-03] MEDS: predniSONE 10 MG TABLET PO SCH (08:19)
[2017-10-03] MEDS: Baclofen 10 MG TABLET PO PRN (08:19)
[2017-10-03 08:31] LABS: Ferritin 11 ng/mL (10-120); Transferrin 299 mg/dL (203-362)
[2017-10-03 08:45] LABS: Iron < 10 mcg/dL (50-170)
[2017-10-03] MEDS ORDERED: Metoprolol XL (24 HR) Succ 50 MG TAB.ER.24H PO SCH (09:00)
[2017-10-03] MEDS: *HR* OxyCODONE/APAP 7.5/325 TABLET PO PRN (12:02)
[2017-10-03 12:05] VITALS: BP 109/71
[2017-10-03] MEDS ORDERED: Iron Sucrose Complex 400 MG in 0.9 % Sodium Chloride 250 ML IVPB ONE (12:39)
--- NOTE | 2017-10-03 12:44 | Discharge Summary ---
- NOTES TO OUTPATIENT PROVIDER Notes to Outpatient Provider: Patient with iron deficiency anemia and thrombocytopenia. IV Venofer given inpatient monitor CBC in 3-5 days. Orders not resulted at time of discharge: Pending orders 10/04/17 04:00 Basic Metabolic Panel AM 0400 Complete Blood Count [HEME] AM 0400 Date of Encounter: 10/03/17 Time of Encounter: 09:55 - Discharge Diagnosis (1) Acute kidney injury Priority: Secondary Status: Resolved Assessment and Plan: Resolved. Renal function has returned to baseline. Creatinine 0.8424 160. Likely secondary to poor by mouth intake and confusion. (2) Urinary tract infection Priority: Secondary Status: Ruled-out Assessment and Plan: Urine indicative of UTI. Pt was treated with Rocephin IV. Urine culture negative for growth, IV antibiotics stopped. Qualifiers: Urinary tract infection type: acute cystitis Hematuria presence: without hematuria Qualified Code(s): N30.00 - Acute cystitis without hematuria (3) DVT prophylaxis Priority: Secondary Status: Acute Assessment and Plan: SCDs ordered. (4) Multiple sclerosis Priority: Secondary Status: Chronic Assessment and Plan: Likely not MS flare, Pt has been seen by neurology and agrees that symptoms most likely are related to infection and/or overmedication. Recommend that pt have nursing/home health /family set up medications and monitor useage. Monitor and limit narcotic pain medications. Pt has returned to her baseline. (5) Atrial fibrillation Priority: Secondary Status: Chronic Assessment and Plan: Continue home medications. Pt denies chst pain. Rate controlled. Qualifiers: Atrial fibrillation type: chronic Qualified Code(s): I48.2 - Chronic atrial fibrillation (6) Dyslipidemia Priority: Secondary Status: Chronic Assessment and Plan: Chronic. Continue home medications. (7) Iron deficiency anemia Priority: Secondary Status: Chronic Assessment and Plan: Hgb 8.6 today, steadily declining since admission. Mildy decreased Vitamin B12. Iron < 10, % sat not performed, ferritin 11, low normal. Pt reports prior history of VINICIO with supplementation. Venofer 400mg IV given prior to discharge Ferrous Sulfate 325mg po BID Qualifiers: Iron deficiency anemia type: unspecified iron deficiency Qualified Code(s) : D50.9 - Iron deficiency anemia, unspecified Hospital course: Ms. Roberts is a 66 year old female with past medical history of MS, A. fib, GERD, hypertension. Patient presented to the emergency department with complains of upper neck, upper back pain, urinary urgency and insomnia for 2 days. Family reports some confusion, patient also noted to have rhythmic movements of upper extremities and was wiping her mouth inappropriately removed with the bed sheets say her mouth was full of saliva. The emergency department , urine was thought to be indicative of UTI and patient was treated with Rocephin, urine culture was negative. Antibiotics have been stopped. Patient also has history of iron deficiency anemia and was found to have an iron of less than 10 with ferritin being low level of normal. Patient received Venofer infusion prior to discharge, she will continue with ferrous sulfate 325 mg by mouth daily after discharge. Patient has returned to baseline, shaking has stopped. He suspected the patient perhaps was having some altered mental status from too much medication at home. Recommended family monitor medication set up an usage daily. Labs and vitals are stable and within normal limits. Patient is appropriate for discharge Discharge discussed with: patient, family, nurse - Time Spent with Patient Total time spent providing and/or coordinating discharge services: Less than 30 minutes - Discharge Medications Prescriptions: Cyanocobalamin (B-12) [Vitamin B12] 1,000 mcg PO DAILY #20 tablet Ferrous Sulfate 325 mg PO BIDWM #40 tablet Home Medications: Albuterol Sulfate [Albuterol Inhaler] 2 puff IH Q4H PRN 11/04/15 [History] Fluticasone Propionate Nasal [Flonase] 2 spray NS BID 11/04/15 [History] Pramipexole [Mirapex] 0.5 mg PO DAILY #30 tablet 11/12/15 [Rx] Simvastatin [Zocor] 20 mg PO HS #30 tablet 11/12/15 [Rx] Apixaban [Eliquis] 5 mg PO BID 03/11/17 [History] Nitroglycerin [Nitrostat] 0.4 mg SL Q5-6MIN PRN 03/11/17 [History] Oxycodone HCl/Acetaminophen [Percocet 7.5-325 mg Tablet] 1 tab PO TID PRN MDD 3 03/11/17 [History] Acetaminophen [Tylenol] 325 mg PO Q6HR PRN 03/17/17 [History] Diltiazem CD (24hr) [Cardizem CD] 120 mg PO DAILY #30 cap.er.24h 03/20/17 [Rx] Furosemide [Lasix] 20 mg PO DAILY PRN #30 tablet 03/20/17 [Rx] Baclofen 20 mg PO TID PRN 04/20/17 [History] Interferon Beta-1A/Albumin [Rebif 44 Mcg/0.5 ml Syringe] 1 each IJ AD 04/20/17 [ History] Tizanidine HCl 4 mg PO BID PRN 04/20/17 [History] predniSONE [PredniSONE] 10 mg PO DAILY #30 tablet 04/27/17 [Rx] Metoprolol Succinate [Toprol Xl] 50 mg PO DAILY 10/01/17 [History] Modafinil [Provigil] 200 mg PO TID 10/01/17 [History] Pantoprazole Sodium [Protonix] 40 mg PO DAILY 10/01/17 [History] Spironolactone [Aldactone] 50 mg PO DAILY 10/01/17 [History] Cyanocobalamin (B-12) [Vitamin B12] 1,000 mcg PO DAILY #20 tablet 10/03/17 [Rx] Ferrous Sulfate 325 mg PO BIDWM #40 tablet 10/03/17 [Rx] Allergies/Adverse Reactions: 3 Allergy/AdvReac Type Severity Reaction Status Date / Time mannitol [From Reclast] Allergy Hives Verified 04/20/17 11:48 zoledronic acid Allergy Hives Verified 04/20/17 11:48 [From Reclast] adhesive tape AdvReac Rash Verified 04/20/17 11:48 aspirin AdvReac Nausea Verified 04/20/17 11:48 cephalexin [From Keflex] AdvReac STOMACH Verified 04/20/17 11:48 UPSET codeine AdvReac Abdominal Verified 04/20/17 11:48 Pain Iodinated Contrast- Oral and AdvReac Hives AND Verified 04/20/17 11:48 IV Dye BREATHING ISSUES Date of admission: 10/01/17 08:18 Primary care physician: Addy Fraire MD Consults: 10/01/17 14:50 Consult to Hvac Service Tech [CONS] Routine Reason for SW Consult: Discharge planning 10/01/17 18:17 Consult to Nutrition [CONS] Routine Comment: Consulting Provider: NUTRITION Reason for Dietary Consult: MST Score Consult to Pastoral Services [CONS] Routine Comment: Discharging clinician: Keely Muhammad Anticipated date of discharge: 10/03/17 - Constitutional Vitals: Temp Pulse Resp BP Pulse Ox 97.6 F 60 14 109/71 99 10/03/17 12:04 10/03/17 12:04 10/03/17 12:04 10/03/17 12:04 10/03/17 12:04 General appearance: Present: cooperative, A&O X 3, pleasant, no acute distress, answers questions appropriately - Head Head exam: Present: atraumatic, normal inspection, normocephalic - Eye Eye exam: Present: normal appearance, conjuntiva pink, sclera anicteric - Neck Neck exam general surgery: Present: supple, trachea midline. Absent: lymphadenopathy, tenderness, thyromegaly - Respiratory Respiratory exam: Present: CTAB. Absent: accessory muscle use, decreased breath sounds, rales, respiratory distress, rhonchi, wheezes - Cardiovascular Cardiovascular exam: Present: RRR, +S1, +S2. Absent: bradycardia, diastolic murmur, gallop, rubs, systolic murmur, tachycardia - GI/Abdominal GI/Abdominal exam: Present: normal bowel sounds, soft, no peritoneal signs. Absent: diminished bowel sounds, distended, hepatomegaly, tenderness - Extremities Exam Extremities exam: Present: normal capillary refill, normal inspection, warm, radial pulses palpable and symmetrical. Absent: calf tenderness, cyanotic, pedal edema, tenderness - Neurological Exam Neurological exam: Present: alert, oriented X3, no focal deficits. Absent: facial droop, speech deficit - Skin Skin exam: Present: dry, intact, normal color, warm. Absent: rash - Patient Status Disposition: Home, Self-Care Condition: Good Functional capacity at discharge: independent ambulation Overall status at discharge: patient is back to baseline - Discharge Instructions Follow Up With: Addy Fraire MD [Primary Care Provider] - (Please call the office and make a follow up appt.) Additional Instructions: Please take your medications as directed. Follow with your PCP in the next 5-7 days for a recheck. You will need to have your labs redrawn in 3-4 days. Return to your normal diet and activities as tolerated. Return to the ER as needed for any other problems or concerns or if your symptoms return or worsen. - Diet and Activity Activity: increase activity as tolerated Diet: advance to your usual diet
--- NOTE | 2017-10-03 13:37 | Neurology Progress Note ---
Date of Encounter: 10/03/17 Time of Encounter: 09:10 Assessment and Plan (1) Multiple sclerosis Current Visit: No Status: Chronic Stable no evidence of any new focal abnormality. MS zamora she is a stable. Symptoms were likely related to medication side effect or could be due to underlying UTI she is doing better she could be discharged from neurology standpoint with follow-up with neurology as an outpatient Subjective Interval history: Patient seems to be doing better denies any other new symptoms or any other new problems she is able to ambulate Objective - Constitutional Vitals: Temp Pulse Resp BP Pulse Ox 97.6 F 60 14 109/71 99 10/03/17 12:04 10/03/17 12:04 10/03/17 12:04 10/03/17 12:04 10/03/17 12:04 - Neurological Exam Motor Examination: Present: grossly full strength in all extremities Sensation intact: Present: intact Reflex and gait examination: intact Mental Status Examination: Present: awake, alert, oriented to person, oriented to place, oriented to time, follows commands appropriately, answers questions appropriately Cranial nerve examination: Present: PERRL, EOMI, visual frias intact, no facial asymmetry is present Results - Laboratory Findings CBC and BMP: 10/03/17 05:03 10/03/17 05:03 Abnormal lab findings: Abnormal lab results WBC 3.5 K/mcL (4.3-11.1) L 10/03/17 05:03 RBC 3.23 M/mcL (3.82-4.97) L 10/03/17 05:03 Hgb 8.6 g/dL (11.5-15.4) L 10/03/17 05:03 Hct 28.1 % (35.3-44.9) L 10/03/17 05:03 MCH 26.6 pg (28.0-33.3) L 10/03/17 05:03 MCHC 30.6 g/dL (31.6-35.5) L 10/03/17 05:03 RDW 19.3 % (11.5-14.5) H 10/03/17 05:03 Plt Count 118 K/mcL (140-400) L 10/03/17 05:03 Chloride 111 mEq/L (98-107) H 10/03/17 05:03 Est GFR (Non-Af Amer) 53 (> 60) L 10/03/17 05:03 Glucose 118 mg/dL (70-105) H 10/03/17 05:03 Iron < 10 mcg/dL (50-170) L 10/03/17 05:03 Vitamin B12 245 pg/mL (250-1100) L 10/01/17 12:37 Folate 16.6 ng/mL (3.0-16.0) H 10/01/17 12:37 TSH 0.307 mcIU/mL (0.340-5.600) L 10/01/17 12:37 Urine Clarity Cloudy (Clear) A 10/01/17 04:36 Urine Ketones Trace mg/dL (Negative) H 10/01/17 04:36 Urine Bilirubin Small (Negative) H 10/01/17 04:36 Ur Leukocyte Esterase Large (Negative) H 10/01/17 04:36 Urine Microscopic WBC 15-30 per hpf (0-3) H 10/01/17 04:36 Ur Squamous Epith Cells Many per lpf (None-Few) H 10/01/17 04:36 Urine Bacteria Moderate per hpf (None-Few) H 10/01/17 04:36 Ur Culture Indicated? NO. (NO) A 10/01/17 04:36 Salicylates < 2.5 mg/dL (15.0-30.0) L 10/01/17 01:12 Acetaminophen < 10 mcg/mL (10-20) L 10/01/17 01:12 Consult Discharge Plan - Plan Referrals: Addy Fraire MD [Primary Care Provider] - (Please call the office and make a follow up appt.) Prescriptions: Cyanocobalamin (B-12) [Vitamin B12] 1,000 mcg PO DAILY #20 tablet
== END 2017-10-03 17:44 | disposition home or self-care (01) ==
LOC: 3BNU 00:13 → EMEROO 00:13 → 3BNU 08:56
PROVIDERS: ADMIT Student in an Organized Health Care Education/Training Program; ATTEND Student in an Organized Health Care Education/Training Program

== ENCOUNTER 2018-05-22 18:29 | Inpatient (IN) ==
--- NOTE | 2018-05-22 18:36 | Emergency Department Note ---
Disposition Clinical Impression: ADE (acute kidney injury), Hypotension Disposition: Admitted As Inpatient Condition: Good General Adult HPI - General Chief complaint: ED Weakness Stated complaint: Hypotension Time Seen by Provider: 05/22/18 18:35 - Related Data Home Medications Medication Instructions Recorded Confirmed Albuterol Sulfate [Albuterol 2 puff IH Q4H PRN 11/04/15 05/22/18 Inhaler] Nitroglycerin [Nitrostat] 0.4 mg SL Q5-6MIN PRN 03/11/17 05/22/18 Oxycodone HCl/Acetaminophen 1 tab PO TID PRN MDD 3 03/11/17 05/22/18 [Percocet 7.5-325 mg Tablet] Baclofen 20 mg PO TID 04/20/17 05/22/18 Tizanidine HCl 4 mg PO Q8H PRN 04/20/17 05/22/18 Metoprolol Succinate [Toprol Xl] 50 mg PO HS 10/01/17 05/22/18 Pantoprazole Sodium [Protonix] 40 mg PO DAILY 10/01/17 05/22/18 Spironolactone [Aldactone] 50 mg PO DAILY 10/01/17 05/22/18 Armodafinil 200 mg PO DAILY 04/11/18 05/22/18 Cholecalciferol (D-3) [Vitamin D] 1,000 unit PO DAILY 04/11/18 05/22/18 Atorvastatin Calcium [Lipitor] 20 mg PO DAILY 05/22/18 05/22/18 Furosemide [Lasix] 40 mg PO DAILY 05/22/18 05/22/18 Previous Rx's Medication Instructions Recorded Pramipexole [Mirapex] 0.5 mg PO DAILY #30 tablet 11/12/15 Cyanocobalamin (B-12) [Vitamin B12] 1,000 mcg PO DAILY #20 tablet 10/03/17 Ferrous Sulfate 325 mg PO BIDWM #40 tablet 10/03/17 Allergies Allergy/AdvReac Type Severity Reaction Status Date / Time mannitol [From Reclast] Allergy Hives Verified 04/20/17 11:48 zoledronic acid Allergy Hives Verified 04/20/17 11:48 [From Reclast] adhesive tape AdvReac Rash Verified 04/20/17 11:48 aspirin AdvReac Nausea Verified 04/20/17 11:48 cephalexin [From Keflex] AdvReac STOMACH Verified 04/20/17 11:48 UPSET codeine AdvReac Abdominal Verified 04/20/17 11:48 Pain Iodinated Contrast- Oral and AdvReac Hives AND Verified 04/20/17 11:48 IV Dye BREATHING ISSUES Past Medical History - Past Medical History Medical history: Reports: arthritis, atrial fibrillation, CHF, COPD, coronary artery disease, DVT, GERD, hyperlipidemia, hypertension, migraine, myocardial infarction, RA, renal disease, other (MS) Surgical history: Reports: appendectomy, colectomy (Partial), orthopedic, other, pacemaker/AICD, other Psychiatric history: Reports: no psych history CREDENTIALER history: Reports: no CREDENTIALER history - Social History Smoking Status: Never smoker Smokeless Tobacco Status: No Alcohol use: Reports: none Drug use: Reports: none Course Vital Signs Temperature 98.3 F 05/22/18 18:33 Pulse Rate 83 05/22/18 18:33 Respiratory Rate 18 05/22/18 18:33 Blood Pressure 72/56 05/22/18 18:33 O2 Sat by Pulse Oximetry 97 05/22/18 18:33 Temperature 98.3 F 05/22/18 18:33 Pulse Rate 70 05/22/18 20:13 Respiratory Rate 16 05/22/18 20:13 Blood Pressure 78/62 05/22/18 20:13 O2 Sat by Pulse Oximetry 99 05/22/18 20:13 Oxygen Delivery Oxygen Delivery Room Air Medical Decision Making - Lab Data Result diagrams: 05/22/18 19:19 05/22/18 19:19 Lab Results 05/22/18 05/22/18 05/22/18 Range/Units 19:19 19:19 19:19 WBC 6.0 (4.3-11.1) K/mcL RBC 3.62 L (3.82-4.97) M/mcL Hgb 12.0 (11.5-15.4) g/dL Hct 37.3 (35.3-44.9) % MCV 103.0 H (83.0-100.0) fL MCH 33.1 (28.0-33.3) pg MCHC 32.2 (31.6-35.5) g/dL RDW 12.9 (11.5-14.5) % Plt Count 100 L (140-400) K/mcL MPV 11.1 (9.4-12.4) fL Immature Gran % 0.2 (0-4) % Seg Neutrophils % 74.1 % Lymphocytes % 15.9 % Monocytes % 8.8 % Eosinophils % 0.5 % Basophils % 0.5 % Neutrophils # 4.4 (1.6-8.9) K/mcL Lymphocytes # 1.0 (0.6-4.6) K/mcL Monocytes # 0.5 (0.0-1.3) K/mcL Eosinophils # 0.0 (0.0-0.6) K/mcL Basophils # 0.0 (0.0-0.2) K/mcL PT 12.2 H (9.4-12.1) Seconds INR 1.1 Sodium 142 (136-145) mEq/L Potassium 4.6 (3.5-5.1) mEq/L Chloride 108 H (98-107) mEq/L Carbon Dioxide 22 L (23-29) mEq/L BUN 39 H (8-23) mg/dL Creatinine 2.15 H (0.60-1.20) mg/dL Est GFR ( Amer) 28 L (> 60) Est GFR (Non-Af Amer) 23 L (> 60) BUN/Creatinine Ratio 18 (6-26) Glucose 97 (70-105) mg/dL Calculated Osmolality 303 H (280-300) Lactic Acid (0.5-2.2) mmol/L Calcium 8.8 (8.6-10.3) mg/dL Phosphorus 3.7 (2.7-4.5) mg/dL Magnesium 1.7 (1.6-2.6) mg/dL Total Bilirubin 0.6 (0.3-1.0) mg/dL Direct Bilirubin 0.2 (0.0-0.2) mg/dL Indirect Bilirubin 0.4 (0.0-1.2) mg/dL AST 22 (13-39) Units/L ALT 15 (7-52) Units/L Alkaline Phosphatase 81 (34-104) Units/L Troponin I 0.03 (< 0.04) ng/mL Serum Total Protein 6.1 L (6.4-8.9) g/dL Albumin 3.7 (3.5-5.7) g/dL Globulin 2.4 (2.4-3.5) g/dL Albumin/Globulin Ratio 1.5 (1.1-2.2) Urine Color (Yellow) Urine Clarity (Clear) Urine pH (5.0-8.0) pH Units Ur Specific [place] (1.010-1.025) Urine Protein (Neg-Trace) mg/dL Urine Glucose (UA) (Normal) mg/dL Urine Ketones (Negative) mg/dL Urine Blood (Negative) Urine Nitrite (Negative) Urine Bilirubin (Negative) Urine Urobilinogen (Normal) mg/dL Ur Leukocyte Esterase (Negative) Urine Microscopic RBC (0-3) per hpf Urine Microscopic WBC (0-3) per hpf Ur Squamous Epith Cells (None-Few) per lpf Urine Bacteria (None-Few) per hpf Hyaline Casts (None-Few) per lpf Ur Culture Indicated? (NO) 05/22/18 05/22/18 Range/Units 19:19 19:55 WBC (4.3-11.1) K/mcL RBC (3.82-4.97) M/mcL Hgb (11.5-15.4) g/dL Hct (35.3-44.9) % MCV (83.0-100.0) fL MCH (28.0-33.3) pg MCHC (31.6-35.5) g/dL RDW (11.5-14.5) % Plt Count (140-400) K/mcL MPV (9.4-12.4) fL Immature Gran % (0-4) % Seg Neutrophils % % Lymphocytes % % Monocytes % % Eosinophils % % Basophils % % Neutrophils # (1.6-8.9) K/mcL Lymphocytes # (0.6-4.6) K/mcL Monocytes # (0.0-1.3) K/mcL Eosinophils # (0.0-0.6) K/mcL Basophils # (0.0-0.2) K/mcL PT (9.4-12.1) Seconds INR Sodium (136-145) mEq/L Potassium (3.5-5.1) mEq/L Chloride (98-107) mEq/L Carbon Dioxide (23-29) mEq/L BUN (8-23) mg/dL Creatinine (0.60-1.20) mg/dL Est GFR ( Amer) (> 60) Est GFR (Non-Af Amer) (> 60) BUN/Creatinine Ratio (6-26) Glucose (70-105) mg/dL Calculated Osmolality (280-300) Lactic Acid 1.8 (0.5-2.2) mmol/L Calcium (8.6-10.3) mg/dL Phosphorus (2.7-4.5) mg/dL Magnesium (1.6-2.6) mg/dL Total Bilirubin (0.3-1.0) mg/dL Direct Bilirubin (0.0-0.2) mg/dL Indirect Bilirubin (0.0-1.2) mg/dL AST (13-39) Units/L ALT (7-52) Units/L Alkaline Phosphatase (34-104) Units/L Troponin I (< 0.04) ng/mL Serum Total Protein (6.4-8.9) g/dL Albumin (3.5-5.7) g/dL Globulin (2.4-3.5) g/dL Albumin/Globulin Ratio (1.1-2.2) Urine Color Dark Yellow (Yellow) Urine Clarity Cloudy A (Clear) Urine pH 5.5 (5.0-8.0) pH Units Ur Specific [place] 1.014 (1.010-1.025) Urine Protein 30 H (Neg-Trace) mg/dL Urine Glucose (UA) Normal (Normal) mg/dL Urine Ketones Trace H (Negative) mg/dL Urine Blood Negative (Negative) Urine Nitrite Negative (Negative) Urine Bilirubin Small H (Negative) Urine Urobilinogen Normal (Normal) mg/dL Ur Leukocyte Esterase Small H (Negative) Urine Microscopic RBC 5-15 H (0-3) per hpf Urine Microscopic WBC 5-15 H (0-3) per hpf Ur Squamous Epith Cells Many H (None-Few) per lpf Urine Bacteria None Seen (None-Few) per hpf Hyaline Casts Moderate H (None-Few) per lpf Ur Culture Indicated? NO. A (NO) Critical Care Time Critical Care Time: Yes Total Critical Care Time: 30 Attestation: The high probability of a clinically significant, sudden or life threatening deterioration of the [] system(s) required my full and direct attention, intervention and personal management. The aggregate critical care time was [] minutes. This time is in addition to time spent performing reported procedures but includes the following: [] Data Review and interpretation [] Patient assessment and monitoring of vital signs [] Documentation [] Medication orders and management Attestation Statement - Attestation Attestation: I examined this patient and my medical decision-making was reviewed with the Resident Physician. I agree with the documented findings, disposition and treatment plan as described except to the extent set forth below. [id number] time provided Patient arrives by EMS from home. She was noted to be "lethargic" with generalized weakness and hypotension. She is alert and lucid and normotensive upon arrival. She does have a history of MS and was recently admitted for an exacerbation thereof 20:15: The patient remains hypotensive but she appears stable. She is alert and mentating appropriately. Her lactate is normal. Currently her systolic blood pressure is 82 mm Hg. she was advised and offered the placement of a triple lumen central venous catheter in case ongoing IV fluids and future pressor support is indicated but she refused 21:37: Patient agreed to receive a central line. Procedure supervised by me.
[2018-05-22] MEDS ORDERED: 0.9 % Sodium Chloride 1,000 ML IVC ONE (18:43)
--- NOTE | 2018-05-22 18:47 | Emergency Department Note ---
Disposition Clinical Impression: ADE (acute kidney injury) Hypotension Qualifiers: Hypotension type: unspecified hypotension type Qualified Code(s): I95.9 - Hypotension, unspecified Disposition: Admitted As Inpatient Condition: Good Referrals: NONE,PCP [Primary Care Provider] - Forms: ED Satisfaction Letter Time of Disposition: 20:46 General Adult HPI - General Chief complaint: ED Weakness Stated complaint: Hypotension Time Seen by Provider: 05/22/18 18:35 Source: patient, EMS Mode of arrival: EMS Limitations: no limitations Nursing Notes Reviewed: Yes Vital Signs Reviewed: Yes - History of Present Illness HPI Narrative: Patient is a 67-year-old female that presents the emergency department via EMS for report of hypotension and lethargy. EMS states that they were called to the patient's home due to unresponsiveness. When they got there they stated that they had a blood pressure of 40 over 20s. States that she was lethargic. They stated that this started 2 IVs and started to give her fluids. Stated that she then became much more responsive and was conversive. Patient states that she has not having any chest pain, shortness of breath nausea or vomiting. Patient states that she is unsure exactly what happened. Patient states that this is happened one other time when she has an MS flare. Patient denies feeling like her heart has been racing or any other symptoms. Patient states that right now she is not feeling lightheaded or dizzy. Patient states that she feels pretty normal at this time. Pain Scale: 0 - Related Data Home Medications Medication Instructions Recorded Confirmed Albuterol Sulfate [Albuterol 2 puff IH Q4H PRN 11/04/15 04/11/18 Inhaler] Nitroglycerin [Nitrostat] 0.4 mg SL Q5-6MIN PRN 03/11/17 04/11/18 Oxycodone HCl/Acetaminophen 1 tab PO TID PRN MDD 3 03/11/17 04/11/18 [Percocet 7.5-325 mg Tablet] Baclofen 20 mg PO TID PRN 04/20/17 04/11/18 Tizanidine HCl 4 mg PO BID PRN 04/20/17 04/11/18 Metoprolol Succinate [Toprol Xl] 50 mg PO DAILY 10/01/17 04/11/18 Pantoprazole Sodium [Protonix] 40 mg PO DAILY 10/01/17 04/11/18 Spironolactone [Aldactone] 50 mg PO DAILY 10/01/17 04/11/18 Armodafinil 200 mg PO DAILY 04/11/18 04/11/18 Cholecalciferol (D-3) [Vitamin D] 1,000 unit PO DAILY 04/11/18 04/11/18 Atorvastatin Calcium [Lipitor] 20 mg PO DAILY 05/22/18 05/22/18 Furosemide [Lasix] 40 mg PO DAILY 05/22/18 05/22/18 Previous Rx's Medication Instructions Recorded Pramipexole [Mirapex] 0.5 mg PO DAILY #30 tablet 11/12/15 Cyanocobalamin (B-12) [Vitamin B12] 1,000 mcg PO DAILY #20 tablet 10/03/17 Ferrous Sulfate 325 mg PO BIDWM #40 tablet 10/03/17 Allergies Allergy/AdvReac Type Severity Reaction Status Date / Time mannitol [From Reclast] Allergy Hives Verified 04/20/17 11:48 zoledronic acid Allergy Hives Verified 04/20/17 11:48 [From Reclast] adhesive tape AdvReac Rash Verified 04/20/17 11:48 aspirin AdvReac Nausea Verified 04/20/17 11:48 cephalexin [From Keflex] AdvReac STOMACH Verified 04/20/17 11:48 UPSET codeine AdvReac Abdominal Verified 04/20/17 11:48 Pain Iodinated Contrast- Oral and AdvReac Hives AND Verified 04/20/17 11:48 IV Dye BREATHING ISSUES All systems ED: reviewed and negative except as stated. Constitutional: Denies: fever Cardiovascular: Denies: chest pain Respiratory: Denies: dyspnea Gastrointestinal: Denies: abdominal pain Musculoskeletal: Reports: neck pain (Chronic ) Neurological: Denies: headache, weakness, numbness, paresthesias Past Medical History - Past Medical History Medical history: Reports: arthritis, atrial fibrillation, CHF, COPD, coronary artery disease, DVT, GERD, hyperlipidemia, hypertension, migraine, myocardial infarction, RA, renal disease, other (MS) Surgical history: Reports: appendectomy, colectomy (Partial), orthopedic, other, pacemaker/AICD, other Psychiatric history: Reports: no psych history ELECTRICIAN ASSISTANT history: Reports: no ELECTRICIAN ASSISTANT history - Social History Smoking Status: Never smoker Smokeless Tobacco Status: No Alcohol use: Reports: none Drug use: Reports: none Physical Exam - General Limitations: no limitations General appearance: alert, in no apparent distress - Head Head exam: atraumatic, normocephalic - Eye Eye exam: Present: normal appearance, EOMI - Neck Neck exam: Present: normal inspection, full ROM, trachea midline - Respiratory Respiratory exam: Present: normal lung sounds bilaterally. Absent: respiratory distress, wheezes - Cardiovascular Cardiovascular exam: Present: regular rate, normal rhythm, normal heart sounds, +S1, +S2 - Abdominal Exam Abdominal exam: Present: soft, Non-Tender, normal bowel sounds - Neurological Exam Neurological exam: Present: alert, oriented X3 - Expanded Neurological Exam Speech: Present: fluid speech Cranial nerves: EOM function (II, III, IV, ): Normal, facial sensation (V): Normal, facial palsy (VII): Normal, gag reflex (IX): Normal, spinal accessory function (XI): Normal, tongue deviation (XII): Normal Motor strength - LUE: 5/5 Motor strength - RUE: 5/5 Motor strength - LLE: 5/5 Motor strength - RLE: 5/5 Sensory exam upper extremity: light touch: Normal Sensory exam lower extremity: light touch: Normal Coma Scale Eye Opening: Spontaneous Coma Scale Motor Response: Obeys Commands Coma Scale Verbal Response: Oriented Coma Scale Total: 15 - Psychiatric Psychiatric exam: Present: normal affect, normal mood - Skin Skin exam: Present: warm, dry, intact Course Vital Signs Temperature 98.3 F 05/22/18 18:33 Pulse Rate 83 05/22/18 18:33 Respiratory Rate 18 05/22/18 18:33 Blood Pressure 72/56 05/22/18 18:33 O2 Sat by Pulse Oximetry 97 05/22/18 18:33 Temperature 98.3 F 05/22/18 18:33 Pulse Rate 70 05/22/18 20:13 Respiratory Rate 16 05/22/18 20:13 Blood Pressure 78/62 05/22/18 20:13 O2 Sat by Pulse Oximetry 99 05/22/18 20:13 Oxygen Delivery Oxygen Delivery Room Air Medical Decision Making - MDM Narrative Medical decision making narrative: The patient presenting to the emergency department with reports of hypotension and lethargy we will obtain a septic workup. Patient had 2 L of IV fluids started by EMS upon arrival she had had one of those liters completed. We will add an additional liter here in the emergency department. Patient does take multiple blood pressure medications at home. Patient's EKG was obtained shows AV dual pacing. It is reported that the patient is also been Eliquis however has not filled her prescription recently so has not been anticoagulated for a couple of months. 2017 patient was offered a central line however she did decline at this time. The risks and benefits were discussed. Informed the patient that due to her being hypotensive with a blood pressure that is primarily been in the 70s here in the emergency department. Beneficial for her to have a central line in the event that she would require vasopressors in the future. The patient expressed understanding that without the central line she may not be able to have these medications. She stated that she would prefer to wait and states that usually her blood pressure will recover. Patient was informed that she may need a central line later in her hospital stay for blood pressure gets worse. Patient is in agreement with potentially having one at a future time. Patient's laboratory testing shows acute kidney injury with a creatinine of 2.15 which is up from her baseline of approximately 1.4. Patient has no active chest pain or shortness of breath at this time. Patient did receive 3 L of fluids between EMS and here in the emergency department. Her blood pressure on reevaluation was 82/51. At this time vasopressors will not be started. Patient has been maintaining her blood pressure. Based on the patient's hypotension and acute kidney injury feel it is most appropriate for her to be admitted to the hospital for further evaluation and management. I called and spoke the admitting hospitalist Dr. Felipe and he has accepted the patient to their service. Patient be admitted to the hospital this time for further evaluation and management. - Medical Records Medical records reviewed: Yes I reviewed the patient's medical records. - Lab Data Lab results reviewed: Yes I reviewed the patient's lab results. Result diagrams: 05/22/18 19:19 05/22/18 19: Lab Results 05/22/18 05/22/18 05/22/18 Range/Units 19:19 19:19 19:19 WBC 6.0 (4.3-11.1) K/mcL RBC 3.62 L (3.82-4.97) M/mcL Hgb 12.0 (11.5-15.4) g/dL Hct 37.3 (35.3-44.9) % MCV 103.0 H (83.0-100.0) fL MCH 33.1 (28.0-33.3) pg MCHC 32.2 (31.6-35.5) g/dL RDW 12.9 (11.5-14.5) % Plt Count 100 L (140-400) K/mcL MPV 11.1 (9.4-12.4) fL Immature Gran % 0.2 (0-4) % Seg Neutrophils % 74.1 % Lymphocytes % 15.9 % Monocytes % 8.8 % Eosinophils % 0.5 % Basophils % 0.5 % Neutrophils # 4.4 (1.6-8.9) K/mcL Lymphocytes # 1.0 (0.6-4.6) K/mcL Monocytes # 0.5 (0.0-1.3) K/mcL Eosinophils # 0.0 (0.0-0.6) K/mcL Basophils # 0.0 (0.0-0.2) K/mcL PT 12.2 H (9.4-12.1) Seconds INR 1.1 Sodium 142 (136-145) mEq/L Potassium 4.6 (3.5-5.1) mEq/L Chloride 108 H (98-107) mEq/L Carbon Dioxide 22 L (23-29) mEq/L BUN 39 H (8-23) mg/dL Creatinine 2.15 H (0.60-1.20) mg/dL Est GFR ( Amer) 28 L (> 60) Est GFR (Non-Af Amer) 23 L (> 60) BUN/Creatinine Ratio 18 (6-26) Glucose 97 (70-105) mg/dL Calculated Osmolality 303 H (280-300) Lactic Acid (0.5-2.2) mmol/L Calcium 8.8 (8.6-10.3) mg/dL Phosphorus 3.7 (2.7-4.5) mg/dL Magnesium 1.7 (1.6-2.6) mg/dL Total Bilirubin 0.6 (0.3-1.0) mg/dL Direct Bilirubin 0.2 (0.0-0.2) mg/dL Indirect Bilirubin 0.4 (0.0-1.2) mg/dL AST 22 (13-39) Units/L ALT 15 (7-52) Units/L Alkaline Phosphatase 81 (34-104) Units/L Troponin I 0.03 (< 0.04) ng/mL Serum Total Protein 6.1 L (6.4-8.9) g/dL Albumin 3.7 (3.5-5.7) g/dL Globulin 2.4 (2.4-3.5) g/dL Albumin/Globulin Ratio 1.5 (1.1-2.2) Urine Color (Yellow) Urine Clarity (Clear) Urine pH (5.0-8.0) pH Units Ur Specific [place] (1.010-1.025) Urine Protein (Neg-Trace) mg/dL Urine Glucose (UA) (Normal) mg/dL Urine Ketones (Negative) mg/dL Urine Blood (Negative) Urine Nitrite (Negative) Urine Bilirubin (Negative) Urine Urobilinogen (Normal) mg/dL Ur Leukocyte Esterase (Negative) Urine Microscopic RBC (0-3) per hpf Urine Microscopic WBC (0-3) per hpf Ur Squamous Epith Cells (None-Few) per lpf Urine Bacteria (None-Few) per hpf Hyaline Casts (None-Few) per lpf Ur Culture Indicated? (NO) 05/22/18 05/22/18 Range/Units 19:19 19:55 WBC (4.3-11.1) K/mcL RBC (3.82-4.97) M/mcL Hgb (11.5-15.4) g/dL Hct (35.3-44.9) % MCV (83.0-100.0) fL MCH (28.0-33.3) pg MCHC (31.6-35.5) g/dL RDW (11.5-14.5) % Plt Count (140-400) K/mcL MPV (9.4-12.4) fL Immature Gran % (0-4) % Seg Neutrophils % % Lymphocytes % % Monocytes % % Eosinophils % % Basophils % % Neutrophils # (1.6-8.9) K/mcL Lymphocytes # (0.6-4.6) K/mcL Monocytes # (0.0-1.3) K/mcL Eosinophils # (0.0-0.6) K/mcL Basophils # (0.0-0.2) K/mcL PT (9.4-12.1) Seconds INR Sodium (136-145) mEq/L Potassium (3.5-5.1) mEq/L Chloride (98-107) mEq/L Carbon Dioxide (23-29) mEq/L BUN (8-23) mg/dL Creatinine (0.60-1.20) mg/dL Est GFR ( Amer) (> 60) Est GFR (Non-Af Amer) (> 60) BUN/Creatinine Ratio (6-26) Glucose (70-105) mg/dL Calculated Osmolality (280-300) Lactic Acid 1.8 (0.5-2.2) mmol/L Calcium (8.6-10.3) mg/dL Phosphorus (2.7-4.5) mg/dL Magnesium (1.6-2.6) mg/dL Total Bilirubin (0.3-1.0) mg/dL Direct Bilirubin (0.0-0.2) mg/dL Indirect Bilirubin (0.0-1.2) mg/dL AST (13-39) Units/L ALT (7-52) Units/L Alkaline Phosphatase (34-104) Units/L Troponin I (< 0.04) ng/mL Serum Total Protein (6.4-8.9) g/dL Albumin (3.5-5.7) g/dL Globulin (2.4-3.5) g/dL Albumin/Globulin Ratio (1.1-2.2) Urine Color Dark Yellow (Yellow) Urine Clarity Cloudy A (Clear) Urine pH 5.5 (5.0-8.0) pH Units Ur Specific [place] 1.014 (1.010-1.025) Urine Protein 30 H (Neg-Trace) mg/dL Urine Glucose (UA) Normal (Normal) mg/dL Urine Ketones Trace H (Negative) mg/dL Urine Blood Negative (Negative) Urine Nitrite Negative (Negative) Urine Bilirubin Small H (Negative) Urine Urobilinogen Normal (Normal) mg/dL Ur Leukocyte Esterase Small H (Negative) Urine Microscopic RBC 5-15 H (0-3) per hpf Urine Microscopic WBC 5-15 H (0-3) per hpf Ur Squamous Epith Cells Many H (None-Few) per lpf Urine Bacteria None Seen (None-Few) per hpf Hyaline Casts Moderate H (None-Few) per lpf Ur Culture Indicated? NO. A (NO) - Radiology Data Radiology results reviewed: Yes I reviewed the patient's radiology results. Chest X-Ray 05/22/18 19:24 IMPRESSION: 1. No acute cardiopulmonary process 2. Moderate hiatal hernia D/ / 05/22/2018 20:08:20 Dell Joy MD / [facility] Interpreting Provider: Dell Joy MD - EKG Data EKG #1 EKG attestation: Yes I reviewed and interpreted this EKG. EKG results narrative: EKG shows an AV paced rhythm at a rate of 82 bpm, IA interval of 198, QRS duration of 117, QTc of 569. There is no evidence of STEMI and EKG.
[2018-05-22 19:31] LABS: Basophils % 0.5 %; Eosinophils % 0.5 %; Hematocrit 37.3 % (35.3-44.9); Immature Granulocytes % 0.2 % (0-4); Lymphocytes % 15.9 %; Mean Corpuscular HGB Conc 32.2 g/dL (31.6-35.5); Mean Corpuscular Hemoglobin 33.1 pg (28.0-33.3); Mean Platelet Volume 11.1 fL (9.4-12.4); Monocytes # 0.5 K/mcL (0.0-1.3); Monocytes % 8.8 %; Neutrophils # 4.4 K/mcL (1.6-8.9); Platelet Count 100 K/mcL (140-400); Red Blood Count 3.62 M/mcL (3.82-4.97); Red Cell Distribution Width 12.9 % (11.5-14.5); Segmented Neutrophils % 74.1 %
[2018-05-22 19:39] LABS: INR 1.1; Prothrombin Time 12.2 Seconds (9.4-12.1)
[2018-05-22 19:51] LABS: Albumin 3.7 g/dL (3.5-5.7); Albumin/Globulin Ratio 1.5 (1.1-2.2); Bilirubin,Direct 0.2 mg/dL (0.0-0.2); Bilirubin,Indirect 0.4 mg/dL (0.0-1.2); Bilirubin,Total 0.6 mg/dL (0.3-1.0); Calcium 8.8 mg/dL (8.6-10.3); Globulin 2.4 g/dL (2.4-3.5); Magnesium 1.7 mg/dL (1.6-2.6); Phosphorous 3.7 mg/dL (2.7-4.5); Potassium 4.6 mEq/L (3.5-5.1); Total Protein 6.1 g/dL (6.4-8.9); Troponin I 0.03 ng/mL (< 0.04)
[2018-05-22 20:10] LABS: Bilirubin,Urine Small (Negative); Blood,Urine Negative (Negative); Clarity,Urine Cloudy (Clear); Color,Urine Dark Yellow (Yellow); Glucose,Urine (UA) Normal (Normal); Ketones,Urine Trace mg/dL (Negative); Leukocyte Esterase,Urine Small (Negative); Nitrite,Urine Negative (Negative); PH,Urine 5.5 pH Units (5.0-8.0); Protein,Urine 30 mg/dL (Neg-Trace); Specific Gravity,Urine 1.014 (1.010-1.025); Urobilinogen,Urine Normal (Normal)
[2018-05-22 20:11] LABS: Bacteria,Urine None Seen per hpf (None-Few); Squamous Epithelial Cell,Urine Many per lpf (None-Few)
[2018-05-22 20:19] LABS: Hyaline Casts,Urine Moderate per lpf (None-Few)
--- NOTE | 2018-05-22 21:50 | Emergency Department Note ---
Disposition Clinical Impression: ADE (acute kidney injury) Hypotension Qualifiers: Hypotension type: unspecified hypotension type Qualified Code(s): I95.9 - Hypotension, unspecified Disposition: Admitted As Inpatient Condition: Good General Adult HPI - General Chief complaint: ED Weakness Stated complaint: Hypotension Time Seen by Provider: 05/22/18 18:35 Source: patient, EMS Mode of arrival: EMS Limitations: no limitations - History of Present Illness Pain Scale: 0 - Related Data Home Medications Medication Instructions Recorded Confirmed Albuterol Sulfate [Albuterol 2 puff IH Q4H PRN 11/04/15 05/22/18 Inhaler] Nitroglycerin [Nitrostat] 0.4 mg SL Q5-6MIN PRN 03/11/17 05/22/18 Oxycodone HCl/Acetaminophen 1 tab PO TID PRN MDD 3 03/11/17 05/22/18 [Percocet 7.5-325 mg Tablet] Baclofen 20 mg PO TID 04/20/17 05/22/18 Tizanidine HCl 4 mg PO Q8H PRN 04/20/17 05/22/18 Metoprolol Succinate [Toprol Xl] 50 mg PO HS 10/01/17 05/22/18 Pantoprazole Sodium [Protonix] 40 mg PO DAILY 10/01/17 05/22/18 Spironolactone [Aldactone] 50 mg PO DAILY 10/01/17 05/22/18 Armodafinil 200 mg PO DAILY 04/11/18 05/22/18 Cholecalciferol (D-3) [Vitamin D] 1,000 unit PO DAILY 04/11/18 05/22/18 Atorvastatin Calcium [Lipitor] 20 mg PO DAILY 05/22/18 05/22/18 Furosemide [Lasix] 40 mg PO DAILY 05/22/18 05/22/18 Previous Rx's Medication Instructions Recorded Pramipexole [Mirapex] 0.5 mg PO DAILY #30 tablet 11/12/15 Cyanocobalamin (B-12) [Vitamin B12] 1,000 mcg PO DAILY #20 tablet 10/03/17 Ferrous Sulfate 325 mg PO BIDWM #40 tablet 10/03/17 Allergies Allergy/AdvReac Type Severity Reaction Status Date / Time mannitol [From Reclast] Allergy Hives Verified 04/20/17 11:48 zoledronic acid Allergy Hives Verified 04/20/17 11:48 [From Reclast] adhesive tape AdvReac Rash Verified 04/20/17 11:48 aspirin AdvReac Nausea Verified 04/20/17 11:48 cephalexin [From Keflex] AdvReac STOMACH Verified 04/20/17 11:48 UPSET codeine AdvReac Abdominal Verified 04/20/17 11:48 Pain Iodinated Contrast- Oral and AdvReac Hives AND Verified 04/20/17 11:48 IV Dye BREATHING ISSUES Constitutional: Denies: fever Cardiovascular: Denies: chest pain Respiratory: Denies: dyspnea Gastrointestinal: Denies: abdominal pain Musculoskeletal: Reports: neck pain (Chronic ) Neurological: Denies: headache, weakness, numbness, paresthesias Past Medical History - Past Medical History Medical history: Reports: arthritis, atrial fibrillation, CHF, COPD, coronary artery disease, DVT, GERD, hyperlipidemia, hypertension, migraine, myocardial infarction, RA, renal disease, other (MS) Surgical history: Reports: appendectomy, colectomy (Partial), orthopedic, other, pacemaker/AICD, other Psychiatric history: Reports: no psych history COMPANY SECRETARY history: Reports: no COMPANY SECRETARY history - Social History Smoking Status: Never smoker Smokeless Tobacco Status: No Alcohol use: Reports: none Drug use: Reports: none Physical Exam - General Limitations: no limitations General appearance: alert, in no apparent distress Course Vital Signs Temperature 98.3 F 05/22/18 18:33 Pulse Rate 83 05/22/18 18:33 Respiratory Rate 18 05/22/18 18:33 Blood Pressure 72/56 05/22/18 18:33 O2 Sat by Pulse Oximetry 97 05/22/18 18:33 Temperature 98 F 05/22/18 22:51 Pulse Rate 82 05/22/18 23:00 Respiratory Rate 12 05/22/18 23:00 Blood Pressure 101/74 05/22/18 23:00 O2 Sat by Pulse Oximetry 98 05/22/18 23:00 Oxygen Delivery Oxygen Delivery Room Air Procedures - Central Line Placement Right IJ Central Line Inserted*: Yes Central Line Catheter Replacement*: No Central Line Insertion: emergent Consent Obtained: written consent Procedural Pause: verify patient name and date of , timeout performed per policy, davon and assess the site, assemble equipment and verify supplies, perform hand hygiene Patient Placed on Monitor/Pulse Ox: Yes During the Procedure: clinician is wearing sterile gloves, cap, mask,& gown during insertion, sterile field and sterile technique are maintained, patient's face is covered with drape or mask and wearing a cap, everyone in room is wearing a mask Central Line Prep: Chlorhexidine scrub Prep the Procedure Site: apply chloraprep to the skin using a back and forth scrubbing motion, apply chloraprep for 30 seconds (upper body), 1-2 min (femoral sites), allow prep to dry, drape the patient with a full body drape Local Anesthetic: lidocaine 1% Amount of anesthesia used (mL): 2 Ultrasound Used for Placement: Yes Central Line Lumen Inserted: triple Post Procedure: sutured in place, good blood return, all ports aspirated, flushed, capped, sterile dressing applied, guide wire removed and visualized Post Procedure X-Ray: tip of catheter in good position, no pneumothorax seen Patient Tolerated Procedure: well, no complications Complications: none Name of Clinician Inserting Central Line: Jonas Johnson DO Clinician Assisting/Completing Checklist: Anjum Fournier MD Medical Decision Making - [facility] Narrative Medical decision making narrative: This is a procedure note for central line that was placed. After the patient had been admitted the patient decided that she was okay with having a central line put in for her hypotension. Patient was consented and central line was placed by myself the supervision of the attending Dr. Fournier. - Lab Data Result diagrams: 05/22/18 19:19 05/22/18 19:19 Lab Results 05/22/18 05/22/18 05/22/18 Range/Units 19:19 19:19 19:19 WBC 6.0 (4.3-11.1) K/mcL RBC 3.62 L (3.82-4.97) M/mcL Hgb 12.0 (11.5-15.4) g/dL Hct 37.3 (35.3-44.9) % MCV 103.0 H (83.0-100.0) fL MCH 33.1 (28.0-33.3) pg MCHC 32.2 (31.6-35.5) g/dL RDW 12.9 (11.5-14.5) % Plt Count 100 L (140-400) K/mcL MPV 11.1 (9.4-12.4) fL Immature Gran % 0.2 (0-4) % Seg Neutrophils % 74.1 % Lymphocytes % 15.9 % Monocytes % 8.8 % Eosinophils % 0.5 % Basophils % 0.5 % Neutrophils # 4.4 (1.6-8.9) K/mcL Lymphocytes # 1.0 (0.6-4.6) K/mcL Monocytes # 0.5 (0.0-1.3) K/mcL Eosinophils # 0.0 (0.0-0.6) K/mcL Basophils # 0.0 (0.0-0.2) K/mcL PT 12.2 H (9.4-12.1) Seconds INR 1.1 Sodium 142 (136-145) mEq/L Potassium 4.6 (3.5-5.1) mEq/L Chloride 108 H (98-107) mEq/L Carbon Dioxide 22 L (23-29) mEq/L BUN 39 H (8-23) mg/dL Creatinine 2.15 H (0.60-1.20) mg/dL Est GFR ( Amer) 28 L (> 60) Est GFR (Non-Af Amer) 23 L (> 60) BUN/Creatinine Ratio 18 (6-26) Glucose 97 (70-105) mg/dL Calculated Osmolality 303 H (280-300) Lactic Acid (0.5-2.2) mmol/L Calcium 8.8 (8.6-10.3) mg/dL Phosphorus 3.7 (2.7-4.5) mg/dL Magnesium 1.7 (1.6-2.6) mg/dL Total Bilirubin 0.6 (0.3-1.0) mg/dL Direct Bilirubin 0.2 (0.0-0.2) mg/dL Indirect Bilirubin 0.4 (0.0-1.2) mg/dL AST 22 (13-39) Units/L ALT 15 (7-52) Units/L Alkaline Phosphatase 81 (34-104) Units/L Troponin I 0.03 (< 0.04) ng/mL Serum Total Protein 6.1 L (6.4-8.9) g/dL Albumin 3.7 (3.5-5.7) g/dL Globulin 2.4 (2.4-3.5) g/dL Albumin/Globulin Ratio 1.5 (1.1-2.2) Urine Color (Yellow) Urine Clarity (Clear) Urine pH (5.0-8.0) pH Units Ur Specific [place] (1.010-1.025) Urine Protein (Neg-Trace) mg/dL Urine Glucose (UA) (Normal) mg/dL Urine Ketones (Negative) mg/dL Urine Blood (Negative) Urine Nitrite (Negative) Urine Bilirubin (Negative) Urine Urobilinogen (Normal) mg/dL Ur Leukocyte Esterase (Negative) Urine Microscopic RBC (0-3) per hpf Urine Microscopic WBC (0-3) per hpf Ur Squamous Epith Cells (None-Few) per lpf Urine Bacteria (None-Few) per hpf Hyaline Casts (None-Few) per lpf Ur Culture Indicated? (NO) 05/22/18 05/22/18 Range/Units 19:19 19:55 WBC (4.3-11.1) K/mcL RBC (3.82-4.97) M/mcL Hgb (11.5-15.4) g/dL Hct (35.3-44.9) % MCV (83.0-100.0) fL MCH (28.0-33.3) pg MCHC (31.6-35.5) g/dL RDW (11.5-14.5) % Plt Count (140-400) K/mcL MPV (9.4-12.4) fL Immature Gran % (0-4) % Seg Neutrophils % % Lymphocytes % % Monocytes % % Eosinophils % % Basophils % % Neutrophils # (1.6-8.9) K/mcL Lymphocytes # (0.6-4.6) K/mcL Monocytes # (0.0-1.3) K/mcL Eosinophils # (0.0-0.6) K/mcL Basophils # (0.0-0.2) K/mcL PT (9.4-12.1) Seconds INR Sodium (136-145) mEq/L Potassium (3.5-5.1) mEq/L Chloride (98-107) mEq/L Carbon Dioxide (23-29) mEq/L BUN (8-23) mg/dL Creatinine (0.60-1.20) mg/dL Est GFR ( Amer) (> 60) Est GFR (Non-Af Amer) (> 60) BUN/Creatinine Ratio (6-26) Glucose (70-105) mg/dL Calculated Osmolality (280-300) Lactic Acid 1.8 (0.5-2.2) mmol/L Calcium (8.6-10.3) mg/dL Phosphorus (2.7-4.5) mg/dL Magnesium (1.6-2.6) mg/dL Total Bilirubin (0.3-1.0) mg/dL Direct Bilirubin (0.0-0.2) mg/dL Indirect Bilirubin (0.0-1.2) mg/dL AST (13-39) Units/L ALT (7-52) Units/L Alkaline Phosphatase (34-104) Units/L Troponin I (< 0.04) ng/mL Serum Total Protein (6.4-8.9) g/dL Albumin (3.5-5.7) g/dL Globulin (2.4-3.5) g/dL Albumin/Globulin Ratio (1.1-2.2) Urine Color Dark Yellow (Yellow) Urine Clarity Cloudy A (Clear) Urine pH 5.5 (5.0-8.0) pH Units Ur Specific [place] 1.014 (1.010-1.025) Urine Protein 30 H (Neg-Trace) mg/dL Urine Glucose (UA) Normal (Normal) mg/dL Urine Ketones Trace H (Negative) mg/dL Urine Blood Negative (Negative) Urine Nitrite Negative (Negative) Urine Bilirubin Small H (Negative) Urine Urobilinogen Normal (Normal) mg/dL Ur Leukocyte Esterase Small H (Negative) Urine Microscopic RBC 5-15 H (0-3) per hpf Urine Microscopic WBC 5-15 H (0-3) per hpf Ur Squamous Epith Cells Many H (None-Few) per lpf Urine Bacteria None Seen (None-Few) per hpf Hyaline Casts Moderate H (None-Few) per lpf Ur Culture Indicated? NO. A (NO)
[2018-05-22] MEDS ORDERED: Hydrocortisone Sodium Succ 100 MG/2 ML VIAL IVP ONE (23:02)
[2018-05-22] MEDS ORDERED: Water for inj. (sterile) 20 ML 20 ML IV ONE (23:43)
[2018-05-22] MEDS: cefTRIAXone 1,000 MG in Water for inj. (sterile) 20 ML 10 ML IVP SCH (23:43)
--- NOTE | 2018-05-22 23:54 | Internal Med History&Physical ---
<Josefina Márquezd - Last Filed: 05/23/18 01:52> Date of Encounter: 05/23/18 Time of Encounter: 22:00 Internal Medicine - H&P: HPI Chief complaint: low blood pressure, decreased responsiveness Admitted From: Emergency Dept History of present illness: Ms. Roberts is a 67 year old female who was brought to the emergency department by EMS after concerns that her son thought she had decreased responsiveness at home. Patient was found to have a blood pressure in the 40s over 20s. EMS placed 2 IVs and administered fluids. Reported that patient became more responsive and conversive at that time. Reports from family that patient has not been sleeping over the last few nights. Was patient got to the emergency department, blood pressures were still soft. She received 2 L of fluids by EMS. Central line was placed. She was not started on any pressors as patient's blood pressure responded to an additional liter of fluids in the emergency department, totaling 3 L. Reported that patient had a creatinine of 2.15. There is also concern from emergency department team that patient is on a lot of medications, most notably oxycodone, diuretics, stimulants. Patient reported that she is feeling fine right now, denying any lightheadedness or dizziness, numbness or tingling in the arms or legs. Past Med Surg Social Fam HX - Past Medical History Medical history: arthritis, atrial fibrillation, CHF, COPD, coronary artery disease, DVT, GERD, hyperlipidemia, hypertension, migraine, myocardial infarction, RA, renal disease, other (MS) Additional medical history: Multiple sclerosis, narcolepsy, osteoporosis, scoliosis, status post nephrectomy, mass on right side of brain, adenomatous colon polyp Psychiatric history: no psych history - Past Surgical History Surgical History: appendectomy, colectomy (Partial), orthopedic, other, pacemaker/AICD, other Additional surgical history: Right nephrectomy, neck fusion 3, shoulder sx - Social History Smoking Status: Never smoker Smokeless Tobacco Status: No Alcohol use: none Drug use: none - Family History Mother Living Status: Hx Family Cardiac Disorders: Yes (Hypertension) Hx Family Cancer: Yes (Breast) Hx Family Endocrine Disorder: Yes (Diabetes) Father Living Status: Hx Family Cardiac Disorders: Yes (Hypertension) Hx Family Respiratory Disorders: No Hx Family Cancer: Yes (Colon cancer) Hx Family GI Disorders: No Hx Family Endocrine Disorder: Yes (Diabetes) Hx Family Neuromuscular Disorders: No Hx Family Neurologic Disorders: No Hx Family HEENT Disorders: No Hx Family Autoimmune Disorders: No Internal Medicine - H&P: Meds Albuterol Sulfate [Albuterol Inhaler] 2 puff IH Q4H PRN 11/04/15 [History] Pramipexole [Mirapex] 0.5 mg PO DAILY #30 tablet 11/12/15 [Rx] Nitroglycerin [Nitrostat] 0.4 mg SL Q5-6MIN PRN 03/11/17 [History] Oxycodone HCl/Acetaminophen [Percocet 7.5-325 mg Tablet] 1 tab PO TID PRN MDD 3 03/11/17 [History] Baclofen 20 mg PO TID 04/20/17 [History] Tizanidine HCl 4 mg PO Q8H PRN 04/20/17 [History] Metoprolol Succinate [Toprol Xl] 50 mg PO HS 10/01/17 [History] Pantoprazole Sodium [Protonix] 40 mg PO DAILY 10/01/17 [History] Spironolactone [Aldactone] 50 mg PO DAILY 10/01/17 [History] Cyanocobalamin (B-12) [Vitamin B12] 1,000 mcg PO DAILY #20 tablet 10/03/17 [Rx] Ferrous Sulfate 325 mg PO BIDWM #40 tablet 10/03/17 [Rx] Armodafinil 200 mg PO DAILY 04/11/18 [History] Cholecalciferol (D-3) [Vitamin D] 1,000 unit PO DAILY 04/11/18 [History] Atorvastatin Calcium [Lipitor] 20 mg PO DAILY 05/22/18 [History] Furosemide [Lasix] 40 mg PO DAILY 05/22/18 [History] Allergy/AdvReac Type Severity Reaction Status Date / Time mannitol [From Reclast] Allergy Hives Verified 04/20/17 11:48 zoledronic acid Allergy Hives Verified 04/20/17 11:48 [From Reclast] adhesive tape AdvReac Rash Verified 04/20/17 11:48 aspirin AdvReac Nausea Verified 04/20/17 11:48 cephalexin [From Keflex] AdvReac STOMACH Verified 04/20/17 11:48 UPSET codeine AdvReac Abdominal Verified 04/20/17 11:48 Pain Iodinated Contrast- Oral and AdvReac Hives AND Verified 04/20/17 11:48 IV Dye BREATHING ISSUES All Systems PM: A 10-system review of systems was performed and is negative for pertinent findings except as documented above in the HPI. - Constitutional Constitutional: lethargy - Cardiovascular Cardiovascular ROS IM: no chest pain - Respiratory Respiratory: no cough - Gastrointestinal Gastrointestinal: diarrhea - Genitourinary Genitourinary: dysuria - Neurological Neurological ROS: no dizziness, no focal weakness - Psychiatric Psychiatric: abnormal sleep pattern - Constitutional Vitals: Temp Pulse Resp BP Pulse Ox 98 F 82 12 101/74 98 05/22/18 22:51 05/22/18 23:00 05/22/18 23:00 05/22/18 23:00 05/22/18 23:00 General appearance: Present: A&O X 3, no acute distress Exam: General: Well Appearing, in no acute distress Head: autraumatic, EOMI, no conjuncitval pallor, no scleral icterus, Neck: neck soft, trachea midline Chest:: Equal chest wall rise Lungs: Normal lungs sounds bilaterally, no wheezes, no respiratory distress Heart: normal heart sounds, normal rhythm, Abdomen: soft, non-tender, no rigidity, no guarding, no rebdound tenderness Integumentary: Skin cool in the distal extremities dry, and intact Neuro: Alert and oriented 3, no focal neurologic deficits Psych: Flat affect Internal Med - H&P Results - Labs CBC & Chem 7: 05/22/18 19:19 05/22/18 19:19 Labs: Short CBC 05/22/18 Range/Units 19:19 WBC 6.0 (4.3-11.1) K/mcL Hgb 12.0 (11.5-15.4) g/dL Hct 37.3 (35.3-44.9) % Plt Count 100 L (140-400) K/mcL Neutrophils # 4.4 (1.6-8.9) K/mcL BMP 05/22/18 19:19 Sodium 142 Potassium 4.6 Chloride 108 H Carbon Dioxide 22 L BUN 39 H Creatinine 2.15 H Glucose 97 Calcium 8.8 Cardiac Enzymes 05/22/18 Range/Units 19:19 Troponin I 0.03 (< 0.04) ng/mL Liver Function 02/24/19 Range/Units 19:19 Total Bilirubin 0.6 (0.3-1.0) mg/dL Direct Bilirubin 0.2 (0.0-0.2) mg/dL AST 22 (13-39) Units/L ALT 15 (7-52) Units/L Alkaline Phosphatase 81 (34-104) Units/L Albumin 3.7 (3.5-5.7) g/dL Urine 05/22/18 Range/Units 19:55 Urine Color Dark Yellow (Yellow) Urine Clarity Cloudy A (Clear) Urine pH 5.5 (5.0-8.0) pH Units Ur Specific [place] 1.014 (1.010-1.025) Urine Protein 30 H (Neg-Trace) mg/dL Urine Glucose (UA) Normal (Normal) mg/dL - Impressions ITS Impressions Chest X-Ray 05/22/18 19:24 IMPRESSION: 1. No acute cardiopulmonary process 2. Moderate hiatal hernia D/ / 05/22/2018 20:08:20 Dell Joy MD / [facility] Interpreting Provider: Dell Joy MD Chest X-Ray 05/22/18 21:43 IMPRESSION: No radiographic evidence of acute cardiopulmonary disease. Left basilar relaxation atelectasis is demonstrated adjacent to hiatal hernia. Interval right IJ CVC placement, tip overlying the superior cavoatrial junction level. No pneumothorax. D/ / Jean Carlos Willis / Jean Carlos Willis Interpreting Provider: Jean Carlos Willis - Assessment and plan (1) Hypotension Current Visit: Yes Status: Acute Assessment and plan: Most likely multifactorial in nature. Patient was dehydrated and was fluid responsive, on antihypertensive medications in the setting of an acute kidney injury, and reports that patient has not been taking her steroids that she is chronically prescribed for her multiple sclerosis. -Patient received 3 L of fluid in the emergency department, continue fluids at 100 per hour normal saline, patient on full diet, hydration should help renal function -We will start stress dose steroids as patient has not been taking her medications as prescribed, 100 mg IV push of hydrocortisone followed by 50 mg IV every 6 hours -Urinalysis did not reveal Qualifiers: Hypotension type: unspecified hypotension type Qualified Code(s): I95.9 - Hypotension, unspecified (2) Adrenal insufficiency Current Visit: Yes Status: Acute Assessment and plan: Patient on chronic steroids secondary to multiple sclerosis. Concern for adrenal insufficiency as patient reports not taking them. Stress dose steroids as mentioned above (3) Acute kidney injury Current Visit: Yes Status: Resolved Assessment and plan: Creatinine of 2.15. It has been higher. Continue treatment as mentioned above as patient significantly dehydrated. -Hold all diuretics at this time (4) UTI (urinary tract infection) Current Visit: Yes Status: Acute Assessment and plan: Patient with reported dysuria. Urinalysis reveals evidence of leukocyte Estrace, white blood cells, blood. In setting of hypotension, ADE, with patient only having one kidney, we will be aggressive about treating a possible urinary tract infection -1 g of Rocephin IV -Urine sent for culture Qualifiers: Urinary tract infection type: acute cystitis Hematuria presence: with hematuria Qualified Code(s): N30.01 - Acute cystitis with hematuria (5) At risk for polypharmacy Current Visit: Yes Status: Acute Assessment and plan: Patient on multiple medications that can be contributing to her altered mental status as well as concern from family that she has been up for the last 3 nights -Stop baclofen, tizanidine, pramipexole, armodafinil for now -Was blood pressure stabilizes, start back her oxycodone for pain. (6) DVT prophylaxis Current Visit: No Status: Acute Assessment and plan: heparin 5000 units subq every 12 hours (7) Full code status Current Visit: Yes Status: Acute - Time Spent With Patient Total time spent is greater than 50% in coordination of care (as documented) at patient's floor/unit and/or counseling patient: <VereniceRuddy rogers - Last Filed: 05/23/18 03:49> Date of Encounter: 05/22/18 Time of Encounter: 23:10 - Constitutional Constitutional: lethargy, no chills, no fever(s), no night sweats - EENT Eyes: no change in vision Ears: no ear pain, no tinnitus Nose, mouth and throat: no nasal congestion, no sore throat - Cardiovascular Cardiovascular ROS IM: lightheadedness, syncope, no chest pain, no dyspnea - Respiratory Respiratory: no cough, no hemoptysis, no chest congestion, no excessive phlegm production, no change in phlegm color - Gastrointestinal Gastrointestinal: diarrhea, nausea, vomiting, no abdominal pain, no hematemesis, no hematochezia, no melena - Genitourinary Genitourinary: dysuria, no flank pain, no hematuria - Integumentary Integumentary IM: no rash, no jaundice - Neurological Neurological ROS: dizziness, no convulsions, no focal weakness, no frequent falls - Psychiatric Psychiatric: abnormal sleep pattern, behavioral changes - Allergic/Immunologic Allergic/Immunologic: GI upset with certain foods - Constitutional Vitals: Temp Pulse Resp BP Pulse Ox 98 F 65 22 102/59 98 05/22/18 22:51 05/23/18 03:00 05/23/18 03:00 05/23/18 03:00 05/23/18 03:00 General appearance: Present: A&O X 3, no acute distress - Head Head exam: Present: atraumatic, normal inspection - Eye Eye exam: Present: PERRL. Absent: scleral icterus - ENT ENT exam: Present: mucous membranes dry - Neck Neck exam general surgery: Present: supple, trachea midline. Absent: lymphadenopathy, tenderness - Respiratory Respiratory exam: Present: CTAB. Absent: chest wall tenderness, rales, rhonchi, wheezes - Cardiovascular Cardiovascular exam: Present: RRR, +S1, +S2. Absent: diastolic murmur, systolic murmur - GI/Abdominal GI/Abdominal exam: Present: normal bowel sounds, soft. Absent: hepatomegaly, mass, splenomegaly, tenderness - Extremities Exam Extremities exam: Absent: calf tenderness, joint swelling, normal capillary refill (delayed at 4 seconds), pedal edema, tenderness, warm (cool) - Neurological Exam Neurological exam: Present: alert, CN II-XII intact, oriented X3, no focal deficits - Skin Skin exam: Present: dry, intact, warm (centrally; cool peripherally) Internal Med - H&P Results - Labs CBC & Chem 7: 05/22/18 19:19 05/22/18 19:19 Labs: Short CBC 05/22/18 Range/Units 19:19 WBC 6.0 (4.3-11.1) K/mcL Hgb 12.0 (11.5-15.4) g/dL Hct 37.3 (35.3-44.9) % Plt Count 100 L (140-400) K/mcL Neutrophils # 4.4 (1.6-8.9) K/mcL BMP 05/22/18 19:19 Sodium 142 Potassium 4.6 Chloride 108 H Carbon Dioxide 22 L BUN 39 H Creatinine 2.15 H Glucose 97 Calcium 8.8 Cardiac Enzymes 05/22/18 Range/Units 19:19 Troponin I 0.03 (< 0.04) ng/mL Liver Function 05/22/18 Range/Units 19:19 Total Bilirubin 0.6 (0.3-1.0) mg/dL Direct Bilirubin 0.2 (0.0-0.2) mg/dL AST 22 (13-39) Units/L ALT 15 (7-52) Units/L Alkaline Phosphatase 81 (34-104) Units/L Albumin 3.7 (3.5-5.7) g/dL Urine 05/22/18 Range/Units 19:55 Urine Color Dark Yellow (Yellow) Urine Clarity Cloudy A (Clear) Urine pH 5.5 (5.0-8.0) pH Units Ur Specific [place] 1.014 (1.010-1.025) Urine Protein 30 H (Neg-Trace) mg/dL Urine Glucose (UA) Normal (Normal) mg/dL - Impressions ITS Impressions Chest X-Ray 05/22/18 19:24 IMPRESSION: 1. No acute cardiopulmonary process 2. Moderate hiatal hernia D/ / 05/22/2018 20:08:20 Dell Joy MD / [facility] Interpreting Provider: Dell Joy MD Chest X-Ray 05/22/18 21:43 IMPRESSION: No radiographic evidence of acute cardiopulmonary disease. Left basilar relaxation atelectasis is demonstrated adjacent to hiatal hernia. Interval right IJ CVC placement, tip overlying the superior cavoatrial junction level. No pneumothorax. D/ / Jean Carlos Willis / Jean Carlos Willis Interpreting Provider: Jean Carlos Willis - Time Spent With Patient Total time spent is greater than 50% in coordination of care (as documented) at patient's floor/unit and/or counseling patient: - Attending Attestation I discussed the patient [place], past medical history, review of systems, lab data, imaging data, and exam findings with Dr. Martinez. I then saw and examined patient independently in the ICU. She does not recall much of the events and states that her grandson woke her up. She was feeling relatively weak all day. She was unresponsive until EMS arrived and noted her blood pressure was critically low. She was fluid resuscitated by EMS and again in the ER. Her blood pressure responded to fluid boluses, and she was admitted to the intensive care unit for ongoing supportive measures. Upon further history in ICU as I interviewed patient, she discloses that she has been taking prednisone chronically for her multiple sclerosis. However, she states she has also been intentionally skipping several days worth of prednisone because it makes her face feel puffy. She states she normally takes 20 mg a day every day as prescribed by her neurologist at [facility] in [place]. She would miss several doses in a row purposely and then get back on her prednisone. I am quite concerned about possible adrenal crisis causing her shock. I therefore asked Dr. Martinez to give her stress dose steroids and start her on scheduled steroids for now. Clinically, she does not appear to be septic, but her urinalysis and urine symptoms suggest possible UTI. Therefore, we will start her on ceftriaxone and monitor cultures. She is also on multiple medications which could affect [employer] and cognitive capabilities. We will minimize her medications for now and monitor closely. Additionally, she is on 2 different diuretics which can lead to further volume depletion. Other than my comments above noted exam findings, I agree with Dr. Martinez's assessment and plan.
[2018-05-23] MEDS: 0.9 % Sodium Chloride 1,000 ML IVC SCH ×3 (00:27→21:33)
[2018-05-23] MEDS: *HR* OxyCODONE/APAP 7.5/325 TABLET PO PRN ×3 (03:33→21:32)
[2018-05-23] MEDS: Hydrocortisone Sodium Succ 100 MG/2 ML VIAL IVP SCH ×4 (05:52→23:47)
[2018-05-23] MEDS ORDERED: *HR* Heparin 5,000 UNIT/ML VIAL SQ SCH (06:00)
--- NOTE | 2018-05-23 18:11 | Internal Med Progress Note ---
Hospitalist Progress Note - Encounter Date of Encounter: 05/23/18 Time of Encounter: 18:08 - Subjective Interval History: Pt states she has history of DVT. She admits to non compliance with her home medications. She denies chest pain or SOB. She denies fever, chills, N/V or diarrhea. - Exam Vitals: Temp Pulse Resp BP Pulse Ox 99.3 F 82 18 125/67 99 05/23/18 14:57 05/23/18 14:57 05/23/18 14:57 05/23/18 14:57 05/23/18 07:15 Exam: General: Well Appearing, in no acute distress Head: autraumatic, EOMI, no conjuncitval pallor, no scleral icterus, Neck: neck soft, trachea midline Chest:: Equal chest wall rise Lungs: Normal lungs sounds bilaterally, no wheezes, no respiratory distress Heart: normal heart sounds, normal rhythm, Abdomen: soft, non-tender, no rigidity, no guarding, no rebdound tenderness Integumentary: Skin cool in the distal extremities dry, and intact Neuro: Alert and oriented 3, no focal neurologic deficits Psych: Flat affect - Assessment and Plan (1) Hypotension Current Visit: Yes Status: Acute Assessment and Plan: Multi-factorial due to non compliance with steroids and dehydration from UTI. Pt started back on steroid therapy. (2) Acute cystitis without hematuria Current Visit: Yes Status: Acute Assessment and Plan: Rocephin. Urine culture incubating (3) Acute kidney injury Current Visit: Yes Status: Resolved Assessment and Plan: Given IVF and will re assess in am. (4) Adrenal insufficiency Current Visit: Yes Status: Acute Assessment and Plan: Patient on chronic steroids secondary to multiple sclerosis. Concern for adrenal insufficiency as patient reports not taking them. Stress dose steroids given and will resume PO steroids. Pt admist to medical non-compliance with her steroids. She states they make her bloated. so she stopped taking them. (5) At risk for polypharmacy Current Visit: Yes Status: Acute Assessment and Plan: Patient on multiple medications that can be contributing to her altered mental status as well as concern from family that she has been up for the last 3 nights -On admission held baclofen, tizanidine, pramipexole, armodafinil for now. -Was blood pressure stabilizes, start back her oxycodone for pain. (6) History of DVT (deep vein thrombosis) Current Visit: No Status: Chronic Assessment and Plan: According to SW pt's PCP states pt had been on Coumadin twice in the past but is very non-compliant. She was then switched to Eliquis. Pt states she had not been taking the Eliuis because she could not afford it, however she did not make her PCP aware of this. PCP apparently had also been considering pradaxa. Will start her on Pradaxa and pharmacy to find out cost to the pt. (7) Medical non-compliance Current Visit: Yes Status: Acute Assessment and Plan: Pt admts to not taking her home medications. DVT Prophylaxis: Was on heparin. Will DC heparin and start on Pradaxa - Summary of Assessment and Plan Summary of Assessment and Plan: History of present illness: Dr. melendez/Logan Márquez Ms. Roberts is a 67 year old female who was brought to the emergency department by EMS after concerns that her son thought she had decreased responsiveness at home. Patient was found to have a blood pressure in the 40s over 20s. EMS placed 2 IVs and administered fluids. Reported that patient became more responsive and conversive at that time. Reports from family that patient has not been sleeping over the last few nights. Was patient got to the emergency department, blood pressures were still soft. She received 2 L of fluids by EMS. Central line was placed. She was not started on any pressors as patient's blood pressure responded to an additional liter of fluids in the emergency department, totaling 3 L. Reported that patient had a creatinine of 2.15. There is also concern from emergency department team that patient is on a lot of medications, most notably oxycodone, diuretics, stimulants. Patient reported that she is feeling fine right now, denying any lightheadedness or dizziness, numbness or tingling in the arms or legs. - Time Spent with Patient Total time spent is greater than 50% in coordination of care (as documented) at patient's floor/unit and/or counseling patient: less than 15 minutes Plan of Care Discussed with: patient Internal Medicine: Result - Labs CBC & Chem 7: 05/22/18 19:19 05/22/18 19:19 Labs: Short CBC 05/22/18 Range/Units 19:19 WBC 6.0 (4.3-11.1) K/mcL Hgb 12.0 (11.5-15.4) g/dL Hct 37.3 (35.3-44.9) % Plt Count 100 L (140-400) K/mcL Neutrophils # 4.4 (1.6-8.9) K/mcL BMP 05/22/18 19:19 Sodium 142 Potassium 4.6 Chloride 108 H Carbon Dioxide 22 L BUN 39 H Creatinine 2.15 H Glucose 97 Calcium 8.8 Cardiac Enzymes 05/22/18 Range/Units 19:19 Troponin I 0.03 (< 0.04) ng/mL Liver Function 05/22/18 Range/Units 19:19 Total Bilirubin 0.6 (0.3-1.0) mg/dL Direct Bilirubin 0.2 (0.0-0.2) mg/dL AST 22 (13-39) Units/L ALT 15 (7-52) Units/L Alkaline Phosphatase 81 (34-104) Units/L Albumin 3.7 (3.5-5.7) g/dL Urine 05/22/18 Range/Units 19:55 Urine Color Dark Yellow (Yellow) Urine Clarity Cloudy A (Clear) Urine pH 5.5 (5.0-8.0) pH Units Ur Specific [place] 1.014 (1.010-1.025) Urine Protein 30 H (Neg-Trace) mg/dL Urine Glucose (UA) Normal (Normal) mg/dL - ABG Interpretation ABG results: PT/INR, D-dimer PT 12.2 Seconds (9.4-12.1) H 05/22/18 19:19 - Impressions Impressions Chest X-Ray 05/22/18 19:24 IMPRESSION: 1. No acute cardiopulmonary process 2. Moderate hiatal hernia D/ / 05/22/2018 20:08:20 Dell Joy MD / [facility] Interpreting Provider: Dell Joy MD Chest X-Ray 05/22/18 21:43 IMPRESSION: No radiographic evidence of acute cardiopulmonary disease. Left basilar relaxation atelectasis is demonstrated adjacent to hiatal hernia. Interval right IJ CVC placement, tip overlying the superior cavoatrial junction level. No pneumothorax. D/ / Jean Carlos Willis / Jean Carlos Willis Interpreting Provider: Jean Carlos Willis Consult Discharge Plan - Plan Referrals: NONE,PCP [Primary Care Provider] - (1) Hypotension Qualifiers: Hypotension type: unspecified hypotension type Qualified Code(s): I95.9 - Hypotension, unspecified
[2018-05-23] MEDS ORDERED: *HR* Dabigatran 75 MG CAPSULE PO SCH (21:00)
[2018-05-23] MEDS: cefTRIAXone 1,000 MG in Water for inj. (sterile) 20 ML 10 ML IVP SCH (23:05)
[2018-05-23] MEDS: Melatonin 3 MG TABLET PO PRN (23:05)
[2018-05-23] MEDS: Fluticasone Propionate Nasal 50 MCG/SPRAY BOTTLE NS SCH (23:09)
[2018-05-24] MEDS ORDERED: *HR* LORazepam 2 MG/ML VIAL IVP PRN ×3 (01:22)
[2018-05-24] MEDS ORDERED: MVI, adult with vitamin K 10 ML in 0.9 % Sodium Chloride 1,000 ML IVC ONE (02:00)
--- NOTE | 2018-05-24 02:05 | Event Note ---
Date of Encounter: 05/24/18 Time of Encounter: 02:01 Received call from nurse as patient was complaining of a crawling sensation over her body. This was associated with visual hallucinations as she noted "things floating over her bed" that when she tried to grab "were not there". She also had tremors and was diaphoretic. CIWA check was assessed and found to be elevated at 13. Patient was evaluated by me personally and was found to be diaphoretic and have shaking of the upper extremities bilaterally. Patient was awake and alert. She described seeing visual spots floating above her bed. No acute focal neurological deficits, no confabulation, speech fluent. Patient denies any consistent alcohol intake at home, but admits to taking Ativan twice a day at home. Lab workup does reveal mild elevation in her MCV. Will start the patient on the CIWA protocol. We will also check vitamin B12 and folate levels. We will also give patient a banana bag.
[2018-05-24 03:30] LABS: Folate 4.1 ng/mL (3.0-16.0)
[2018-05-24] MEDS: Hydrocortisone Sodium Succ 100 MG/2 ML VIAL IVP SCH ×3 (06:06→17:41)
--- NOTE | 2018-05-24 08:20 | Electrocardiograph Report ---
[place] [facility] Test Date: 2018-05-22 Pat Name: Rocío Roberts Department: [id number] Room: 2NE19 Gender: F Mat Cutter: : 1950 Requested By: Jonas Johnson Order Number: [id number] Reading MD: Saravanan Toure Measurements Intervals [place] Rate: 82 P: 79 ME: 198 QRS: 45 QRSD: 117 T: 62 QT: 404 QTc: 569 Interpretive Statements Atrial-ventricular dual-paced complexes No further analysis attempted due to paced rhythm Baseline wander in lead(s) V2 V3 V4 V5 V6 Electronically Signed On 05-24-2018 8:18:39 EST by Saravanan Toure
[2018-05-24] MEDS: Fluticasone Propionate Nasal 50 MCG/SPRAY BOTTLE NS SCH (09:59)
--- NOTE | 2018-05-24 11:35 | Internal Med Progress Note ---
Hospitalist Progress Note - Encounter Date of Encounter: 05/24/18 Time of Encounter: 11:32 - Subjective Interval History: Pt denies chest pain or SOB. Pt denies fever, chills, N/V or diarrhea. She was having some confusion and hallucination last night but she is more alert today. - Exam Vitals: Temp Pulse Resp BP Pulse Ox 99 F 73 16 139/92 98 05/24/18 11:14 05/24/18 11:14 05/24/18 11:14 05/24/18 11:14 05/24/18 11:14 Exam: General: Well Appearing, in no acute distress Head: autraumatic, EOMI, no conjuncitval pallor, no scleral icterus, Neck: neck soft, trachea midline Chest:: Equal chest wall rise Lungs: Normal lungs sounds bilaterally, no wheezes, no respiratory distress Heart: normal heart sounds, normal rhythm, Abdomen: soft, non-tender, no rigidity, no guarding, no rebdound tenderness Integumentary: Skin cool in the distal extremities dry, and intact Neuro: Alert and oriented 3, no focal neurologic deficits Psych: Flat affect - Assessment and Plan (1) Hypotension Current Visit: Yes Status: Acute Assessment and Plan: Multi-factorial due to non compliance with steroids and dehydration from UTI. Pt started back on steroid therapy. (2) Acute cystitis without hematuria Current Visit: Yes Status: Acute Assessment and Plan: Rocephin. Urine culture shows no growth. UTI ruled out (3) Acute kidney injury Current Visit: Yes Status: Resolved Assessment and Plan: Given IVF and will re assess renal function. (4) Adrenal insufficiency Current Visit: Yes Status: Acute Assessment and Plan: Patient on chronic steroids secondary to multiple sclerosis. Concern for adrenal insufficiency as patient reports not taking them. Stress dose steroids given and will resume PO steroids. Pt admits to medical non-compliance with her steroids but may be unintentional and due to confusion. She states they make her bloated. so she stopped taking them. (5) At risk for polypharmacy Current Visit: Yes Status: Acute Assessment and Plan: Patient on multiple medications that can be contributing to her altered mental status as well as concern from family that she has been up for the last 3 nights -On admission held baclofen, tizanidine, pramipexole, armodafinil for now. -Was blood pressure stabilizes, start back her oxycodone for pain. (6) History of DVT (deep vein thrombosis) Current Visit: No Status: Chronic Assessment and Plan: According to SW pt's PCP states pt had been on Coumadin twice in the past but is very non-compliant. She was then switched to Eliquis. Pt states she had not been taking the Eliuis because she could not afford it, however she did not make her PCP aware of this. PCP apparently had also been considering pradaxa. Started on Pradaxa 05/23/18 but upon further investigation by pharmacy, eliquis is actually cheaper than pradaxa. Will resume pt back on Eliquis. (7) Medical non-compliance Current Visit: Yes Status: Acute Assessment and Plan: This appears to be unintentional. Per family pt gets confused and appears to be taking her meds more frequently than she needs to. See explanation below (8) Altered mental status Current Visit: No Status: Resolved Assessment and Plan: checking non-contrast CT head. Will consult psych to see due to polypharmacy. Family reports that pt wakes up confused at around 2 am (thinks its a new) and takes her meds, then wakes up again at 8 am (thinks it's a new day again) and takes her meds again. (9) Multiple sclerosis Current Visit: No Status: Chronic Assessment and Plan: May or may not be contributing to confusion. Will check non-contrast head CT and if negative will follow with MRI brain with and without contrast. DVT Prophylaxis: Was on heparin. Will DC heparin and start on Pradaxa - Summary of Assessment and Plan Summary of Assessment and Plan: History of present illness: Dr. melendez/Logan Márquez Ms. Roberts is a 67 year old female who was brought to the emergency department by EMS after concerns that her son thought she had decreased responsiveness at home. Patient was found to have a blood pressure in the 40s over 20s. EMS placed 2 IVs and administered fluids. Reported that patient became more responsive and conversive at that time. Reports from family that patient has not been sleeping over the last few nights. Was patient got to the emergency department, blood pressures were still soft. She received 2 L of fluids by EMS. Central line was placed. She was not started on any pressors as patient's blood pressure responded to an additional liter of fluids in the emergency de partment, totaling 3 L. Reported that patient had a creatinine of 2.15. There is also concern from emergency department team that patient is on a lot of medications, most notably oxycodone, diuretics, stimulants. Patient reported that she is feeling fine right now, denying any lightheadedness or dizziness, numbness or tingling in the arms or legs. - Time Spent with Patient Total time spent is greater than 50% in coordination of care (as documented) at patient's floor/unit and/or counseling patient: less than 15 minutes Plan of Care Discussed with: patient Internal Medicine: Result - Labs CBC & Chem 7: 05/22/18 19:19 05/22/18 19:19 - ABG Interpretation ABG results: PT/INR, D-dimer PT 12.2 Seconds (9.4-12.1) H 05/22/18 19:19 Consult Discharge Plan - Plan Referrals: NONE,PCP [Primary Care Provider] - (1) Hypotension Qualifiers: Hypotension type: unspecified hypotension type Qualified Code(s): I95.9 - Hypotension, unspecified (8) Altered mental status Qualifiers: Altered mental status type: delirium Qualified Code(s): R41.0 - Disorientation, unspecified
[2018-05-24 12:25] LABS: Basophils % 0.2 %; Immature Granulocytes % 0.2 % (0-4)
[2018-05-24 12:27] LABS: Hematocrit 34.1 % (35.3-44.9); Immature Platelets 3.8 % (1.1-6.1); Lymphocytes # 0.5 K/mcL (0.6-4.6); Mean Corpuscular HGB Conc 32.3 g/dL (31.6-35.5); Mean Corpuscular Volume 102.4 fL (83.0-100.0); Mean Platelet Volume 10.9 fL (9.4-12.4); Monocytes # 0.2 K/mcL (0.0-1.3); Monocytes % 5.8 %; Neutrophils # 3.3 K/mcL (1.6-8.9); Red Blood Count 3.33 M/mcL (3.82-4.97); Red Cell Distribution Width 13.2 % (11.5-14.5); Segmented Neutrophils % 80.8 %
[2018-05-24 12:35] LABS: BUN/Creatinine Ratio 27 (6-26); Blood Urea Nitrogen 29 mg/dL (8-23); Calcium 8.8 mg/dL (8.6-10.3); Carbon Dioxide 20 mEq/L (23-29); Chloride 115 mEq/L (98-107); Glucose 114 mg/dL (70-105); Osmolality,Calculated 301 (280-300); Platelet Count 93 K/mcL (140-400); Platelet Estimate Decreased (Normal); Potassium 4.4 mEq/L (3.5-5.1); Sodium 142 mEq/L (136-145); eGFR For Non-African Americans 50 (> 60)
--- NOTE | 2018-05-24 12:58 | Consult Note ---
Date of Encounter: 05/25/18 Time of Encounter: 12:45 Assessment & Recommendation (1) Altered mental status Current visit: No Status: Resolved Assessment & Recommendation: There could be several causes to the patient's recent confusion and hallucinations. Of note, patient takes several sedating nighttime medications, including baclofen and oxycodone while inpatient, that she may not be adhering to normally. Thus, the confusion seen may be secondary to over medication at that time. Although patient stated at the time of confusion that she takes Ativan, it is unknown if she actually takes this medication. She does not appear to be in withdrawal; thus, it is not thought that that is contributing factor. In addition, with her age, she may have reduced cognitive reserve that may cause confusion at times, especially at night. In addition, she has not slept reportedly in 3 days, which may also cause confusion. -Recommend continuing medications at this time without change unless there is further confusion -If there is continued confusion at night, recommend starting low-dose haloperidol 2 mg by mouth every 8 hours when necessary for agitation if hallucinations become severe Recommend against using benzodiazepines for agitation as these medications can further confuse the patient Recommend assistance with medication organization and administration outpatient, as it appears patient does not always remember when she takes her medications and may not be taking them as prescribed -Recommend continuing with CT head scan which is pending Will continue to follow remotely in case any additional confusion occurs. Please call with any further questions. Thank you for the consult. Qualifiers: Altered mental status type: disorientation Qualified Code(s): R41.0 - Disorientation, unspecified History of Present Illness Patient: new to practice Requesting Physician: Todd Benitez MD Reason for consult: Visual hallucinations and confusion History of present illness: Ms. Roberts is a 67 year old female with no significant past psychiatric history but with a past medical history of multiple sclerosis being admitted on 05/22/18 for hypotension and lethargy with acute ADE space in being consulted for visual hallucinations. Reports, last night patient became confused, stating that there were "things floating over her bed" and feeling crawling sensations on her person. She told providers that she takes Ativan twice a day and was started on CIWA protocol. Nursing staff denies that she has had any other confusion since and has since been taken off CIWA protocol because she later said she does not take Ativan. Notes report that family states she does take medication infrequently at home and not completely as prescribed, stating that sometimes she will double her dose in the morning, not knowing she had taken her medica tions. When speaking with the patient today, she reports that last night she was "claustrophobic, hot, and had not slept in 3 days." She does admit that she had recently taken an oxycodone at the time of her hallucinations. Also reports that she was just waking up when both happen and was in the middle of sleep. She denies knowing why she has not slept but reports being tired at this time she reports working "hard" couple of days in her home because she felt physically able to. She reports that she was working about 10 hours a day. She denies that she has ever had visual or auditory hallucinations and does not know why she had done last night. She denies current depression and a history of depression or any other psychiatric disorder. She reports that she "sometimes" has anxiety that is within normal limits. She denies issues with appetite. She reports finding ping in life. She does deny that she takes Ativan at home. She denies suicidal and homicidal ideation. She denies overtaking her medication. She denies history of tobacco, alcohol, and illicit drug use. CC: Todd Benitez MD Past Med Surg Social [facility] HX - Past Medical History Source: patient Medical history: arthritis, atrial fibrillation, CHF, COPD, coronary artery disease, DVT, GERD, hyperlipidemia, hypertension, migraine, myocardial infarction, RA, renal disease, other (MS) - Past Psychiatric History Psychiatric history: Reports: no psych history Family psychiatric history: Unknown Family History of Suicide: Unknown - Past Surgical History Surgical History: appendectomy, colectomy (Partial), orthopedic, other, pacemaker/AICD, other - Social History Smoking Status: Never smoker Smokeless Tobacco Status: No Alcohol use: none Drug use: none Occupational status: disabled Current living situation: Home Activity Level: Other - Family History Mother Living Status: Hx Family Cardiac Disorders: Yes (Hypertension) Hx Family Cancer: Yes (Breast) Hx Family Endocrine Disorder: Yes (Diabetes) Father Living Status: Hx Family Cardiac Disorders: Yes (Hypertension) Hx Family Respiratory Disorders: No Hx Family Cancer: Yes (Colon cancer) Hx Family GI Disorders: No Hx Family Endocrine Disorder: Yes (Diabetes) Hx Family Neuromuscular Disorders: No Hx Family Neurologic Disorders: No Hx Family HEENT Disorders: No Hx Family Autoimmune Disorders: No Medications & Allergies Albuterol Sulfate [Albuterol Inhaler] 2 puff IH Q4H PRN 11/04/15 [History] Pramipexole [Mirapex] 0.5 mg PO DAILY #30 tablet 11/12/15 [Rx] Nitroglycerin [Nitrostat] 0.4 mg SL Q5-6MIN PRN 03/11/17 [History] Oxycodone HCl/Acetaminophen [Percocet 7.5-325 mg Tablet] 1 tab PO TID PRN MDD 3 03/11/17 [History] Baclofen 20 mg PO TID 04/20/17 [History] Tizanidine HCl 4 mg PO Q8H PRN 04/20/17 [History] Metoprolol Succinate [Toprol Xl] 50 mg PO HS 10/01/17 [History] Pantoprazole Sodium [Protonix] 40 mg PO DAILY 10/01/17 [History] Spironolactone [Aldactone] 50 mg PO DAILY 10/01/17 [History] Cyanocobalamin (B-12) [Vitamin B12] 1,000 mcg PO DAILY #20 tablet 10/03/17 [Rx] Ferrous Sulfate 325 mg PO BIDWM #40 tablet 10/03/17 [Rx] Armodafinil 200 mg PO DAILY 04/11/18 [History] Cholecalciferol (D-3) [Vitamin D] 1,000 unit PO DAILY 04/11/18 [History] Atorvastatin Calcium [Lipitor] 20 mg PO DAILY 05/22/18 [History] Furosemide [Lasix] 40 mg PO DAILY 05/22/18 [History] PredniSONE [Albin] 7.5 mg PO DAILY 05/25/18 [History] Allergy/AdvReac Type Severity Reaction Status Date / Time mannitol [From Reclast] Allergy Hives Verified 04/20/17 11:48 zoledronic acid Allergy Hives Verified 04/20/17 11:48 [From Reclast] adhesive tape AdvReac Rash Verified 04/20/17 11:48 aspirin AdvReac Nausea Verified 04/20/17 11:48 cephalexin [From Keflex] AdvReac STOMACH Verified 04/20/17 11:48 UPSET codeine AdvReac Abdominal Verified 04/20/17 11:48 Pain Iodinated Contrast- Oral and AdvReac Hives AND Verified 04/20/17 11:48 IV Dye BREATHING ISSUES Review of Systems Neurological: Reports: weakness Psychiatric: Reports: abnormal sleep pattern. Denies: depression, anxiety, suicidal ideation, change in appetite, homicidal ideation, auditory hallucinations, visual hallucinations, anhedonia Psychiatry Exam - Constitutional Vitals: Temp Pulse Resp BP Pulse Ox 99 F 73 16 139/92 98 05/24/18 11:14 05/24/18 11:14 05/24/18 11:14 05/24/18 11:14 05/24/18 11:14 General appearance: age & developmentally appropriate, well-groomed, well- nourished, obese - Musculoskeletal Gait: other (Not assessed) Station: relaxed Strength & Tone: normal for patient - Psychiatric Patient Orientation: Yes Person (Grossly), Yes Time, Yes Place, Yes Circumstance Level of alertness: Alert, Follows commands Behavior: calm, cooperative Psychomotor activity: Normal Eye Contact: Maintains Eye Contact Mood Description: Euthymic/stable Patient description of mood: "Okay" Affect description: congruent with mood, full range Speech Volume: Normal Speech pattern: normal rate, normal rhythm, normal tone, fluent, spontaneous Language & Vocabulary: consistent with education Thought Process: Logical, Linear, Goal Oriented Thought Content: No Suicidal ideation, No Homicidal ideation, No Overt delusions Perceptual Disturbances: No Reacting to internal stimuli, No Auditory hallucinations, No Visual hallucinations Attention Span Ability: Capable of Focused Attention Memory Description: Grossly Intact Patient Reliability: Questionable Historian Fund of knowledge: Yes abstraction ability, Yes aware of current events Intelligence Estimate: Average Judgment: Fair Insight: Partial Results - Drug Levels and Toxicology Drug Levels and Toxicology: None noted this a.m. - Labs Labs: Laboratory Last Values WBC 4.1 K/mcL (4.3-11.1) L 05/24/18 11:57 RBC 3.33 M/mcL (3.82-4.97) L 05/24/18 11:57 Hgb 11.0 g/dL (11.5-15.4) L 05/24/18 11:57 Hct 34.1 % (35.3-44.9) L 05/24/18 11:57 MCV 102.4 fL (83.0-100.0) H 05/24/18 11:57 MCH 33.0 pg (28.0-33.3) 05/24/18 11:57 MCHC 32.3 g/dL (31.6-35.5) 05/24/18 11:57 RDW 13.2 % (11.5-14.5) 05/24/18 11:57 Plt Count 93 K/mcL (140-400) L 05/24/18 11:57 MPV 10.9 fL (9.4-12.4) 05/24/18 11:57 Immature Gran % 0.2 % (0-4) 05/24/18 11:57 Seg Neutrophils % 80.8 % 05/24/18 11:57 Lymphocytes % 13.0 % 05/24/18 11:57 Monocytes % 5.8 % 05/24/18 11:57 Eosinophils % 0.0 % 05/24/18 11:57 Basophils % 0.2 % 05/24/18 11:57 Neutrophils # 3.3 K/mcL (1.6-8.9) 05/24/18 11:57 Lymphocytes # 0.5 K/mcL (0.6-4.6) L 05/24/18 11:57 Monocytes # 0.2 K/mcL (0.0-1.3) 05/24/18 11:57 Eosinophils # 0.0 K/mcL (0.0-0.6) 05/24/18 11:57 Basophils # 0.0 K/mcL (0.0-0.2) 05/24/18 11:57 Platelet Estimate Decreased (Normal) L 05/24/18 11:57 Immature Plt Fraction 3.8 % (1.1-6.1) 05/24/18 11:57 PT 12.2 Seconds (9.4-12.1) H 05/22/18 19:19 INR 1.1 05/22/18 19:19 Sodium 142 mEq/L (136-145) 05/24/18 11:57 Potassium 4.4 mEq/L (3.5-5.1) 05/24/18 11:57 Chloride 115 mEq/L (98-107) H 05/24/18 11:57 Carbon Dioxide 20 mEq/L (23-29) L 05/24/18 11:57 BUN 29 mg/dL (8-23) H 05/24/18 11:57 Creatinine 1.09 mg/dL (0.60-1.20) 05/24/18 11:57 Est GFR ( Amer) > 60 (> 60) 05/24/18 11:57 Est GFR (Non-Af Amer) 50 (> 60) L 05/24/18 11:57 BUN/Creatinine Ratio 27 (6-26) H 05/24/18 11:57 Glucose 114 mg/dL (70-105) H 05/24/18 11:57 POC Glucose 93 mg/dL (70-99) 05/22/18 22:38 Calculated Osmolality 301 (280-300) H 05/24/18 11:57 Lactic Acid 0.4 mmol/L (0.5-2.2) L 05/22/18 23:05 Calcium 8.8 mg/dL (8.6-10.3) 05/24/18 11:57 Phosphorus 3.7 mg/dL (2.7-4.5) 05/22/18 19:19 Magnesium 1.7 mg/dL (1.6-2.6) 05/22/18 19:19 Total Bilirubin 0.6 mg/dL (0.3-1.0) 05/22/18 19:19 Direct Bilirubin 0.2 mg/dL (0.0-0.2) 05/22/18 19:19 Indirect Bilirubin 0.4 mg/dL (0.0-1.2) 05/22/18 19:19 AST 22 Units/L (13-39) 05/22/18 19:19 ALT 15 Units/L (7-52) 05/22/18 19:19 Alkaline Phosphatase 81 Units/L (34-104) 05/22/18 19:19 Troponin I 0.03 ng/mL (< 0.04) 05/22/18 19:19 Serum Total Protein 6.1 g/dL (6.4-8.9) L 05/22/18 19:19 Albumin 3.7 g/dL (3.5-5.7) 05/22/18 19:19 Globulin 2.4 g/dL (2.4-3.5) 05/22/18 19:19 Albumin/Globulin Ratio 1.5 (1.1-2.2) 02/24/19 19:19 Vitamin B12 508 pg/mL (250-1100) 05/24/18 02:13 Folate 4.1 ng/mL (3.0-16.0) 05/24/18 02:13 Urine Color Dark Yellow (Yellow) 05/22/18 19:55 Urine Clarity Cloudy (Clear) A 05/22/18 19:55 Urine pH 5.5 pH Units (5.0-8.0) 05/22/18 19:55 Ur Specific [place] 1.014 (1.010-1.025) 05/22/18 19:55 Urine Protein 30 mg/dL (Neg-Trace) H 05/22/18 19:55 Urine Glucose (UA) Normal mg/dL (Normal) 05/22/18 19:55 Urine Ketones Trace mg/dL (Negative) H 05/22/18 19:55 Urine Blood Negative (Negative) 05/22/18 19:55 Urine Nitrite Negative (Negative) 05/22/18 19:55 Urine Bilirubin Small (Negative) H 05/22/18 19:55 Urine Urobilinogen Normal mg/dL (Normal) 05/22/18 19:55 Ur Leukocyte Esterase Small (Negative) H 05/22/18 19:55 Urine Microscopic RBC 5-15 per hpf (0-3) H 05/22/18 19:55 Urine Microscopic WBC 5-15 per hpf (0-3) H 05/22/18 19:55 Ur Squamous Epith Cells Many per lpf (None-Few) H 05/22/18 19:55 Urine Bacteria None Seen per hpf (None-Few) 05/22/18 19:55 Hyaline Casts Moderate per lpf (None-Few) H 05/22/18 19:55 Ur Culture Indicated? NO. (NO) A 05/22/18 19:55 - Impressions CT head pending Consult Discharge Plan - Plan Referrals: NONE,PCP [Primary Care Provider] - - Attending Attestation I examined this patient and my medical decision-making was reviewed with the Resident Physician. I agree with the documented findings, disposition and treatment plan as described except to the extent described below. On eval today client is alert and oriented. She denies further hallucinations. Delirium appears to have resolved. She does take multiple medications at home that could have contributed to her clinical picture including Tizanidine, Baclofen, and Oxycodone. Client admits she may not always take her meds correctly. If she gets confused and under and overdoses herself she could easily precipitate a delirium. She really needs help managing her medications. She seems to be doing fine on her current doses here in the hospital. Provided she has assistance with maintaining this regimen at home suspect she will be fine. Will sign off for now. Call if any questions.
[2018-05-24] MEDS: ARMODAFINIL 200 MG PO SCH (16:25)
[2018-05-24] MEDS ORDERED: tiZANidine 4 MG TABLET PO PRN (16:27)
[2018-05-24] MEDS: Baclofen 10 MG TABLET PO SCH ×2 (16:28→20:08)
[2018-05-24] MEDS: *HR* OxyCODONE/APAP 7.5/325 TABLET PO PRN (17:50)
[2018-05-24] MEDS: Apixaban 5 MG TABLET PO SCH (20:08)
[2018-05-25] MEDS: cefTRIAXone 1,000 MG in Water for inj. (sterile) 20 ML 10 ML IVP SCH (00:03)
[2018-05-25] MEDS: Hydrocortisone Sodium Succ 100 MG/2 ML VIAL IVP SCH ×3 (00:04→11:37)
[2018-05-25] MEDS: *HR* OxyCODONE/APAP 7.5/325 TABLET PO PRN ×3 (00:11→20:01)
[2018-05-25 04:39] LABS: Albumin 3.4 g/dL (3.5-5.7); Calcium 8.8 mg/dL (8.6-10.3); Phosphorous 3.4 mg/dL (2.7-4.5); Potassium 4.2 mEq/L (3.5-5.1)
--- NOTE | 2018-05-25 08:54 | Internal Med Progress Note ---
Hospitalist Progress Note - Encounter Date of Encounter: 05/25/18 Time of Encounter: 11:00 - Subjective Interval History: Patient to go for nuclear medicine stress tests - Exam Vitals: Temp Pulse Resp BP Pulse Ox 97.9 F 59 14 142/93 97 05/25/18 06:46 05/25/18 06:46 05/25/18 06:46 05/25/18 06:46 05/25/18 06:46 Exam: Gen.: Nonacute distress, alert and oriented 3 ENT: Mucosal membranes moist Respiratory: Lungs are clear to auscultation bilaterally without any wheezing rhonchi or rales Cardiovascular: Normal S1 and S2 regular rate rhythm no murmurs rubs or gallops Abdomen: Soft, nontender and nondistended with positive bowel sounds Extremities: No lower extremity edema Skin: Normal color - Assessment and Plan (1) Altered mental status Current Visit: No Status: Resolved Assessment and Plan: Head CT negative for any acute findings. Psychiatry has been consulted with recommendations for adjustments to medical management of several sedating medications (2) At risk for polypharmacy Current Visit: Yes Status: Acute Assessment and Plan: Patient on multiple medications that can be contributing to her altered mental status as well as concern from family that she has been up for the last 3 nights On admission held baclofen, tizanidine, pramipexole, armodafinil for now. (3) Adrenal insufficiency Current Visit: Yes Status: Acute Assessment and Plan: Patient on chronic steroids secondary to multiple sclerosis. Concern for adrenal insufficiency as patient reports not taking them. Continuing stress dose steroids before resuming PO steroids. (4) Acute kidney injury Current Visit: Yes Status: Resolved Assessment and Plan: Resolved; continue to monitor (5) Multiple sclerosis Current Visit: No Status: Chronic Assessment and Plan: Continuing Solu-Cortef (6) Hypotension Current Visit: Yes Status: Acute Assessment and Plan: Resolved; continue to monitor (7) History of DVT (deep vein thrombosis) Current Visit: No Status: Chronic Assessment and Plan: According to SW pt's PCP states pt had been on Coumadin twice in the past but is very non-compliant. She was then switched to Eliquis. Pt states she had not been taking the Eliuis because she could not afford it, however she did not make her PCP aware of this. PCP apparently had also been considering pradaxa. Started on Pradaxa 05/23/18 but upon further investigation by pharmacy, eliquis is actually cheaper than pradaxa. Continue Eliquis. (8) Acute cystitis without hematuria Current Visit: Yes Status: Acute Assessment and Plan: Urine culture shows no growth. UTI ruled out Will discontinue IV antibiotic DVT Prophylaxis: On Eliquis - Time Spent with Patient Total time spent is greater than 50% in coordination of care (as documented) at patient's floor/unit and/or counseling patient: Internal Medicine: Result - Labs CBC & Chem 7: 05/24/18 11:57 05/25/18 03:47 Labs: Short CBC 05/24/18 Range/Units 11:57 WBC 4.1 L (4.3-11.1) K/mcL Hgb 11.0 L (11.5-15.4) g/dL Hct 34.1 L (35.3-44.9) % Plt Count 93 L (140-400) K/mcL Neutrophils # 3.3 (1.6-8.9) K/mcL BMP 05/24/18 05/25/18 11:57 03:47 Sodium 142 142 Potassium 4.4 4.2 Chloride 115 H 114 H Carbon Dioxide 20 L 21 L BUN 29 H 30 H Creatinine 1.09 1.10 Glucose 114 H 102 Calcium 8.8 8.8 Liver Function 05/25/18 Range/Units 03:47 Albumin 3.4 L (3.5-5.7) g/dL - ABG Interpretation ABG results: PT/INR, D-dimer PT 12.2 Seconds (9.4-12.1) H 05/22/18 19:19 - Impressions Impressions Chest X-Ray 05/22/18 19:24 IMPRESSION: 1. No acute cardiopulmonary process 2. Moderate hiatal hernia D/ / 05/22/2018 20:08:20 Dell Joy MD / mone Interpreting Provider: Dell Joy MD Head CT 05/24/18 11:30 IMPRESSION: No acute intracranial abnormality. D/ / Ray Saldana MD / Ray Saldana MD Interpreting Provider: Ray Saldana MD Consult Discharge Plan - Plan Referrals: NONE,PCP [Primary Care Provider] - (1) Altered mental status Qualifiers: Altered mental status type: disorientation Qualified Code(s): R41.0 - Disorientation, unspecified (6) Hypotension Qualifiers: Hypotension type: unspecified hypotension type Qualified Code(s): I95.9 - Hypotension, unspecified
[2018-05-25] MEDS: Apixaban 5 MG TABLET PO SCH ×2 (10:17→20:01)
[2018-05-25] MEDS: Baclofen 10 MG TABLET PO SCH ×3 (10:17→20:01)
[2018-05-25] MEDS: Fluticasone Propionate Nasal 50 MCG/SPRAY BOTTLE NS SCH (10:27)
[2018-05-25] MEDS: ARMODAFINIL 200 MG PO SCH (10:27)
[2018-05-25] MEDS: Furosemide 40 MG TABLET PO SCH (15:23)
[2018-05-25] MEDS: predniSONE 10 MG TABLET PO SCH (16:38)
[2018-05-25] MEDS ORDERED: Metoprolol XL (24 HR) Succ 50 MG TAB.ER.24H PO SCH (21:00)
[2018-05-25] MEDS: Melatonin 3 MG TABLET PO PRN (22:41)
[2018-05-26 04:51] LABS: Albumin 3.3 g/dL (3.5-5.7); Calcium 8.9 mg/dL (8.6-10.3); Phosphorous 3.3 mg/dL (2.7-4.5); Potassium 3.8 mEq/L (3.5-5.1)
[2018-05-26] MEDS: *HR* OxyCODONE/APAP 7.5/325 TABLET PO PRN ×2 (06:47→16:50)
[2018-05-26 06:49] VITALS: BP 150/96
[2018-05-26] MEDS: ARMODAFINIL 200 MG PO SCH (07:41)
[2018-05-26] MEDS: predniSONE 10 MG TABLET PO SCH (07:48)
[2018-05-26] MEDS: Fluticasone Propionate Nasal 50 MCG/SPRAY BOTTLE NS SCH (07:48)
[2018-05-26] MEDS: Baclofen 10 MG TABLET PO SCH ×2 (07:48→15:43)
[2018-05-26] MEDS: Furosemide 40 MG TABLET PO SCH (07:48)
[2018-05-26] MEDS: Apixaban 5 MG TABLET PO SCH (07:48)
[2018-05-26] MEDS ORDERED: hydrOXYzine pamoate 25 MG CAPSULE PO ONE (12:31)
--- NOTE | 2018-05-26 15:42 | Discharge Summary ---
- NOTES TO OUTPATIENT PROVIDER Notes to Outpatient Provider: Follow-up with primary care provider Orders not resulted at time of discharge: Pending orders 05/22/18 19:19 Culture,Blood [BC] Stat 05/27/18 04:00 Renal Function Panel AM 0400 Date of Encounter: 05/26/18 Time of Encounter: 11:00 - Discharge Diagnosis (1) Altered mental status Priority: Primary Status: Resolved Qualifiers: Altered mental status type: disorientation Qualified Code(s): R41.0 - Disorientation, unspecified (2) At risk for polypharmacy Priority: Primary Status: Acute (3) Adrenal insufficiency Priority: Primary Status: Acute (4) Acute kidney injury Priority: Primary Status: Resolved (5) Multiple sclerosis Priority: Secondary Status: Chronic (6) Hypotension Priority: Primary Status: Acute Qualifiers: Hypotension type: unspecified hypotension type Qualified Code(s): I95.9 - Hypotension, unspecified (7) History of DVT (deep vein thrombosis) Priority: Secondary Status: Chronic (8) Acute cystitis without hematuria Priority: Secondary Status: Acute Hospital course: Patient is a 67-year-old female with past medical history significant for atrial fibrillation, CHF, COPD, coronary artery disease, DVT, GERD, hyperlipidemia, hypertension, migraine, myocardial infarction, RA and renal disease who presented due to altered mental status. Son thought patient was unresponsive at home therefore, EMS to bring patient into the hospital for evaluation. The patients hospital stay she was also found to be hypotensive and was treated for adrenal insufficiency with Solu-Cortef. She is hypertension resolved and her mental status improved. Patient thinks that she had lack of sleep which contributed to her altered mental status. Inspected that patient missed managed her medications and might have overdosed. Offered patient assistance with pillbox at home but declines. Patient will be discharged with home health and to follow up with primary care provider. - Time Spent with Patient Total time spent providing and/or coordinating discharge services: Time spent: Less than 30 minutes - Discharge Medications Prescriptions: New Apixaban [Eliquis] 5 mg PO BID #60 tablet predniSONE [PredniSONE] 10 mg PO DAILY 30 Days #30 tablet Continue Albuterol Sulfate [Albuterol Inhaler] 2 puff IH Q4H PRN PRN Reason: Shortness Of Breath Pramipexole [Mirapex] 0.5 mg PO DAILY #30 tablet Nitroglycerin [Nitrostat] 0.4 mg SL Q5-6MIN PRN PRN Reason: Chest Pain Oxycodone HCl/Acetaminophen [Percocet 7.5-325 mg Tablet] 1 tab PO TID PRN MDD 3 PRN Reason: Pain Baclofen 20 mg PO TID Tizanidine HCl 4 mg PO Q8H PRN PRN Reason: Muscle Spasm Metoprolol Succinate [Toprol Xl] 50 mg PO HS Pantoprazole Sodium [Protonix] 40 mg PO DAILY Spironolactone [Aldactone] 50 mg PO DAILY Cyanocobalamin (B-12) [Vitamin B12] 1,000 mcg PO DAILY #20 tablet Ferrous Sulfate 325 mg PO BIDWM #40 tablet Armodafinil 200 mg PO DAILY Cholecalciferol (D-3) [Vitamin D] 1,000 unit PO DAILY Atorvastatin Calcium [Lipitor] 20 mg PO DAILY Furosemide [Lasix] 40 mg PO DAILY Discontinued PredniSONE [Albin] 7.5 mg PO DAILY Home Medications: Albuterol Sulfate [Albuterol Inhaler] 2 puff IH Q4H PRN 11/04/15 [History] Pramipexole [Mirapex] 0.5 mg PO DAILY #30 tablet 11/12/15 [Rx] Nitroglycerin [Nitrostat] 0.4 mg SL Q5-6MIN PRN 03/11/17 [History] Oxycodone HCl/Acetaminophen [Percocet 7.5-325 mg Tablet] 1 tab PO TID PRN MDD 3 03/11/17 [History] Baclofen 20 mg PO TID 04/20/17 [History] Tizanidine HCl 4 mg PO Q8H PRN 04/20/17 [History] Metoprolol Succinate [Toprol Xl] 50 mg PO HS 10/01/17 [History] Pantoprazole Sodium [Protonix] 40 mg PO DAILY 10/01/17 [History] Spironolactone [Aldactone] 50 mg PO DAILY 10/01/17 [History] Cyanocobalamin (B-12) [Vitamin B12] 1,000 mcg PO DAILY #20 tablet 10/03/17 [Rx] Ferrous Sulfate 325 mg PO BIDWM #40 tablet 10/03/17 [Rx] Armodafinil 200 mg PO DAILY 04/11/18 [History] Cholecalciferol (D-3) [Vitamin D] 1,000 unit PO DAILY 04/11/18 [History] Atorvastatin Calcium [Lipitor] 20 mg PO DAILY 05/22/18 [History] Furosemide [Lasix] 40 mg PO DAILY 05/22/18 [History] Apixaban [Eliquis] 5 mg PO BID #60 tablet 05/26/18 [Rx] predniSONE [PredniSONE] 10 mg PO DAILY 30 Days #30 tablet 05/26/18 [Rx] Allergies/Adverse Reactions: Allergy/AdvReac Type Severity Reaction Status Date / Time mannitol [From Reclast] Allergy Hives Verified 04/20/17 11:48 zoledronic acid Allergy Hives Verified 04/20/17 11:48 [From Reclast] adhesive tape AdvReac Rash Verified 04/20/17 11:48 aspirin AdvReac Nausea Verified 04/20/17 11:48 cephalexin [From Keflex] AdvReac STOMACH Verified 04/20/17 11:48 UPSET codeine AdvReac Abdominal Verified 04/20/17 11:48 Pain Iodinated Contrast- Oral and AdvReac Hives AND Verified 04/20/17 11:48 IV Dye BREATHING ISSUES Date of admission: 05/22/18 23:50 Primary care physician: PCP NONE Consults: 05/22/18 23:51 Consult to Guard Entrance Registrar [CONS] Routine Reason for SW Consult: patient with polypharmacy, concern for mental health as well 05/24/18 11:38 Consult to Psychiatry [CONS] Routine Consulting Provider: Psychiat[facility] [place] Reason consult: Altered mental status Other reason and/or additional details: Hallucinations - Constitutional Vitals: Temp Pulse Resp BP Pulse Ox 98.0 F 59 14 150/96 97 05/26/18 06:00 05/26/18 06:00 05/26/18 06:00 05/26/18 06:00 05/26/18 06:00 General appearance: Present: A&O X 3, no acute distress Exam: Gen.: Nonacute distress, alert and oriented 3 Skin: Normal color - Patient Status Disposition: Home, Self-Care Condition: Good - Discharge Instructions Instructions: Prednisone (By mouth), Apixaban (By mouth) Follow Up With: Addy Fraire MD [Non-Partnered Physician] - 06/01/18 2:15 pm NONE,PCP [Primary Care Provider] -
--- NOTE | 2018-05-26 16:23 | Physician Discharge Referral ---
Home Health/Hosp Referral Info Transfer to: Home Health - Diagnosis (1) Altered mental status Status: Resolved (2) At risk for polypharmacy Status: Acute (3) Adrenal insufficiency Status: Acute (4) Acute kidney injury Status: Resolved (5) Multiple sclerosis Status: Chronic (6) Hypotension Status: Acute (7) History of DVT (deep vein thrombosis) Status: Chronic (8) Acute cystitis without hematuria Status: Acute - Respiratory Orders Smoking Cessation: Smoking cessation has been advised. For more information, call the [place] Tobacco Quit Line at 2-868-GPBU-NOW. - Services Needed Following services are medically necessary services: Nursing - Transfer Medications Prescriptions: Apixaban [Eliquis] 5 mg PO BID #60 tablet predniSONE [PredniSONE] 10 mg PO DAILY 30 Days #30 tablet Home Medications: Albuterol Sulfate [Albuterol Inhaler] 2 puff IH Q4H PRN 11/04/15 [History] Pramipexole [Mirapex] 0.5 mg PO DAILY #30 tablet 11/12/15 [Rx] Nitroglycerin [Nitrostat] 0.4 mg SL Q5-6MIN PRN 03/11/17 [History] Oxycodone HCl/Acetaminophen [Percocet 7.5-325 mg Tablet] 1 tab PO TID PRN MDD 3 03/11/17 [History] Baclofen 20 mg PO TID 04/20/17 [History] Tizanidine HCl 4 mg PO Q8H PRN 04/20/17 [History] Metoprolol Succinate [Toprol Xl] 50 mg PO HS 10/01/17 [History] Pantoprazole Sodium [Protonix] 40 mg PO DAILY 10/01/17 [History] Spironolactone [Aldactone] 50 mg PO DAILY 10/01/17 [History] Cyanocobalamin (B-12) [Vitamin B12] 1,000 mcg PO DAILY #20 tablet 10/03/17 [Rx] Ferrous Sulfate 325 mg PO BIDWM #40 tablet 10/03/17 [Rx] Armodafinil 200 mg PO DAILY 04/11/18 [History] Cholecalciferol (D-3) [Vitamin D] 1,000 unit PO DAILY 04/11/18 [History] Atorvastatin Calcium [Lipitor] 20 mg PO DAILY 05/22/18 [History] Furosemide [Lasix] 40 mg PO DAILY 05/22/18 [History] Apixaban [Eliquis] 5 mg PO BID #60 tablet 05/26/18 [Rx] predniSONE [PredniSONE] 10 mg PO DAILY 30 Days #30 tablet 05/26/18 [Rx] Allergies/Adverse Reactions: Allergy/AdvReac Type Severity Reaction Status Date / Time mannitol [From Reclast] Allergy Hives Verified 04/20/17 11:48 zoledronic acid Allergy Hives Verified 04/20/17 11:48 [From Reclast] adhesive tape AdvReac Rash Verified 04/20/17 11:48 aspirin AdvReac Nausea Verified 04/20/17 11:48 cephalexin [From Keflex] AdvReac STOMACH Verified 04/20/17 11:48 UPSET codeine AdvReac Abdominal Verified 04/20/17 11:48 Pain Iodinated Contrast- Oral and AdvReac Hives AND Verified 04/20/17 11:48 IV Dye BREATHING ISSUES Certification: Further, I certify that my clinical findings support that this patient is homebound (i.e. absences from home require considerable and taxing effort and are for medical reasons or [facility] services or infrequently or short duration when for other reasons) because: Homebound Reason: Patient requires assistance of a person or device to safely leave home Attestation: My signature below is to certify that this patient is under my care and that I, or nurse practitioner, or a physician's ict sales assistant working with me, has a [id number] encounter with this patient.
== END 2018-05-26 17:24 | disposition home or self-care (01) | DRG 918 ==
LOC: ICNU 18:29 → EMEROOARM 18:29 → ICNU 22:30 → SUATTDRO 23:50 → 2NENU 05-23 05:40
PROVIDERS: ADMIT Family Medicine; ATTEND Hospitalist

== ENCOUNTER 2018-06-23 05:50 | Inpatient (IN) ==
[2018-06-23] MEDS ORDERED: 0.9 % Sodium Chloride 1,000 ML IVC ONE (05:55)
[2018-06-23] MEDS ORDERED: *HR* LORazepam 2 MG/ML VIAL IVP ONE (05:56)
--- NOTE | 2018-06-23 06:04 | Emergency Department Note ---
Disposition Clinical Impression: Confusion, Combative behavior Disposition: Still a Patient Condition: Undetermined General Adult HPI - General Stated complaint: altered Time Seen by Provider: 06/23/18 05:54 Nursing Notes Reviewed: Yes Vital Signs Reviewed: Yes - History of Present Illness HPI Narrative: 59-year-old female presents from home via EMS for evaluation of altered behavior. Family provided history to EMS who conveys his history to me. Family states for the last day or so, patient has been scooting herself along the floor trying to kick people. Family told EMS she was like this one time before but they never sought treatment because it stopped on its own. EMS notes that the patient's house was dark and had electrical interns throughout the place. Patient's electricity had been off for some time. Patient is altered and unable to provide any history. No family is at bedside. Family told EMS they will, "be here eventually." PMH: athritis, atrial fibrillation, CHF, COPD, coronary artery disease, DVT, GERD, hyperlipidemia, hypertension, migraine, myocardial infarction, RA, renal disease, other (MS) Review systems not possible secondary to patient's medical condition. - Related Data Home Medications Medication Instructions Recorded Confirmed Albuterol Sulfate [Albuterol 2 puff IH Q4H PRN 11/04/15 05/22/18 Inhaler] Nitroglycerin [Nitrostat] 0.4 mg SL Q5-6MIN PRN 03/11/17 05/22/18 Oxycodone HCl/Acetaminophen 1 tab PO TID PRN MDD 3 03/11/17 05/22/18 [Percocet 7.5-325 mg Tablet] Baclofen 20 mg PO TID 04/20/17 05/22/18 Tizanidine HCl 4 mg PO Q8H PRN 04/20/17 05/22/18 Metoprolol Succinate [Toprol Xl] 50 mg PO HS 10/01/17 05/22/18 Pantoprazole Sodium [Protonix] 40 mg PO DAILY 10/01/17 05/22/18 Spironolactone [Aldactone] 50 mg PO DAILY 10/01/17 05/22/18 Armodafinil 200 mg PO DAILY 04/11/18 05/22/18 Cholecalciferol (D-3) [Vitamin D] 1,000 unit PO DAILY 04/11/18 05/22/18 Atorvastatin Calcium [Lipitor] 20 mg PO DAILY 05/22/18 05/22/18 Furosemide [Lasix] 40 mg PO DAILY 05/22/18 05/22/18 Previous Rx's Medication Instructions Recorded Pramipexole [Mirapex] 0.5 mg PO DAILY #30 tablet 11/12/15 Cyanocobalamin (B-12) [Vitamin B12] 1,000 mcg PO DAILY #20 tablet 10/03/17 Ferrous Sulfate 325 mg PO BIDWM #40 tablet 10/03/17 Apixaban [Eliquis] 5 mg PO BID #60 tablet 05/26/18 predniSONE [PredniSONE] 10 mg PO DAILY 30 Days #30 tablet 05/26/18 Allergies Allergy/AdvReac Type Severity Reaction Status Date / Time mannitol [From Reclast] Allergy Hives Verified 04/20/17 11:48 zoledronic acid Allergy Hives Verified 04/20/17 11:48 [From Reclast] adhesive tape AdvReac Rash Verified 04/20/17 11:48 aspirin AdvReac Nausea Verified 04/20/17 11:48 cephalexin [From Keflex] AdvReac STOMACH Verified 04/20/17 11:48 UPSET codeine AdvReac Abdominal Verified 04/20/17 11:48 Pain Iodinated Contrast- Oral and AdvReac Hives AND Verified 04/20/17 11:48 IV Dye BREATHING ISSUES All systems ED: reviewed and negative except as stated. Review of Systems: As Per HPI Past Medical History - Past Medical History Medical history: Reports: arthritis, atrial fibrillation, CHF, COPD, coronary artery disease, DVT, GERD, hyperlipidemia, hypertension, migraine, myocardial infarction, RA, renal disease, other (MS) Surgical history: Reports: appendectomy, colectomy (Partial), orthopedic, other, pacemaker/AICD, other Psychiatric history: Reports: no psych history [employer]CH[employer] history: Reports: no [employer] history - Social History Smoking Status: Never smoker Smokeless Tobacco Status: No Alcohol use: Reports: none Drug use: Reports: none Physical Exam Vital Signs Reviewed General: Patient is alert, not oriented. She is moaning in pain and occasionally laughing. Head: normocephalic. Ecchymosis to left forehead. Eye: normal appearance, PERRL, no scleral icterus, no conjunctival injection ENT: mucous membranes moist, normal external ear exam Neck: normal inspection, trachea midline, full ROM Chest: normal inspection, symmetric chest rise Respiratory: Good respiratory effort. Bilateral breath sounds are clear without wheezing, crackles, or rhonchi. Cardiovascular: Regular rate and rhythm. No clicks, rubs, gallops, or murmors. Normal heart sounds. Bilateral radial pulses 2/4 equal. Feet are cold to the touch. Left great toe has chilblains. Abdomen: Bowel sounds present normoactive. Abdomen is soft, nondistended. No guarding or rebound. Unable to assess tenderness secondary to patient's mental status. Musculoskeletal: Spontaneously moving all extremities. Skin: Dry, intact. Neuro: GCS 10 (E4, V2, M4). She is spontaneously moving all extremities. Strength 5/5 and equal bilateral lower extremities. Unable to assess appropriate neurologic status secondary to lack of patient compliance. Psych: Patient's affect is appropriate for situation. Course Course Narrative: IM Ativan 1 mg as patient is preventing IV placement and unable to follow commands. Chart check shows patient was admitted to this facility approximately 1 month ago. Chief complaint was decreased responsiveness and confusion. CT had at that time showed no acute abnormalities. Stress dose steroids provided; 100 mg hydrocortisone. Patient is on chronic steroids for multiple sclerosis. EKG dated 06/24/19 1906:12 interpreted as atrial paced at a rate of 66. MI 188, QRS 101, QTC 453. Nonspecific ST-T changes. Compared to previous dated 05/22/2018 showing no acute ischemic changes or comparison. 06:45 Patient's son and son's girlfriend are now bedside. Attempted to obtain additional history from them. They are poor historians. They were provided the patient does have a lock box for her medication that dispenses patient's doses per day schedule. The last time the son saw her normal was Wednesday evening; approximate 1.5 days prior to arrival. He was not with her this entire time. He states the patient had not been kicking people rather, she was kicking her heels into the ground and hitting her head on the ground. This is different from her previous presentation for confusion. At that time, she was confused but not violent. At this time, she is both confused and combative. Differential for the patient's presentation includes polypharmacy, accidental overdose, intracranial vascular event, infection 06:55 Patient is difficult peripheral IV access. Staff attempting to obtain IV access with ultrasound guidance. Patient will be signed out to the day physician. Pending: CT head, chest x-ray, all laboratory work including urinalysis Recommended disposition: Admission Vital Signs Temperature 97.6 F 06/23/18 05:54 Pulse Rate 82 06/23/18 05:54 Respiratory Rate 22 06/23/18 05:54 Blood Pressure 117/42 06/23/18 05:54 O2 Sat by Pulse Oximetry 99 06/23/18 05:54 Temperature 97.6 F 06/23/18 05:54 Pulse Rate 61 06/23/18 06:44 Respiratory Rate 17 06/23/18 06:44 Blood Pressure 86/62 06/23/18 06:44 O2 Sat by Pulse Oximetry 100 06/23/18 06:44 Oxygen Delivery Oxygen Delivery Room Air
[2018-06-23] MEDS ORDERED: *HR* LORazepam 2 MG/ML VIAL IM STA (06:07)
--- NOTE | 2018-06-23 06:07 | Emergency Department Note ---
Disposition Clinical Impression: Confusion, Combative behavior, Altered mental status Disposition: Still a Patient Condition: Undetermined General Adult HPI - General Stated complaint: altered Time Seen by Provider: 06/23/18 05:54 Nursing Notes Reviewed: Yes Vital Signs Reviewed: Yes - Related Data Home Medications Medication Instructions Recorded Confirmed Albuterol Sulfate [Albuterol 2 puff IH Q4H PRN 11/04/15 05/22/18 Inhaler] Nitroglycerin [Nitrostat] 0.4 mg SL Q5-6MIN PRN 03/11/17 05/22/18 Oxycodone HCl/Acetaminophen 1 tab PO TID PRN MDD 3 03/11/17 05/22/18 [Percocet 7.5-325 mg Tablet] Baclofen 20 mg PO TID 04/20/17 05/22/18 Tizanidine HCl 4 mg PO Q8H PRN 04/20/17 05/22/18 Metoprolol Succinate [Toprol Xl] 50 mg PO HS 10/01/17 05/22/18 Pantoprazole Sodium [Protonix] 40 mg PO DAILY 10/01/17 05/22/18 Spironolactone [Aldactone] 50 mg PO DAILY 10/01/17 05/22/18 Armodafinil 200 mg PO DAILY 04/11/18 05/22/18 Cholecalciferol (D-3) [Vitamin D] 1,000 unit PO DAILY 04/11/18 05/22/18 Atorvastatin Calcium [Lipitor] 20 mg PO DAILY 05/22/18 05/22/18 Furosemide [Lasix] 40 mg PO DAILY 05/22/18 05/22/18 Previous Rx's Medication Instructions Recorded Pramipexole [Mirapex] 0.5 mg PO DAILY #30 tablet 11/12/15 Cyanocobalamin (B-12) [Vitamin B12] 1,000 mcg PO DAILY #20 tablet 10/03/17 Ferrous Sulfate 325 mg PO BIDWM #40 tablet 10/03/17 Apixaban [Eliquis] 5 mg PO BID #60 tablet 05/26/18 predniSONE [PredniSONE] 10 mg PO DAILY 30 Days #30 tablet 05/26/18 Allergies Allergy/AdvReac Type Severity Reaction Status Date / Time mannitol [From Reclast] Allergy Hives Verified 04/20/17 11:48 zoledronic acid Allergy Hives Verified 04/20/17 11:48 [From Reclast] adhesive tape AdvReac Rash Verified 04/20/17 11:48 aspirin AdvReac Nausea Verified 04/20/17 11:48 cephalexin [From Keflex] AdvReac STOMACH Verified 04/20/17 11:48 UPSET codeine AdvReac Abdominal Verified 04/20/17 11:48 Pain Iodinated Contrast- Oral and AdvReac Hives AND Verified 04/20/17 11:48 IV Dye BREATHING ISSUES Past Medical History - Past Medical History Medical history: Reports: arthritis, atrial fibrillation, CHF, COPD, coronary artery disease, DVT, GERD, hyperlipidemia, hypertension, migraine, myocardial infarction, RA, renal disease, other (MS) Surgical history: Reports: appendectomy, colectomy (Partial), orthopedic, other, pacemaker/AICD, other Psychiatric history: Reports: 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 - Social History Smoking Status: Never smoker Smokeless Tobacco Status: No Alcohol use: Reports: none Drug use: Reports: none Course Vital Signs Temperature 97.6 F 06/23/18 05:54 Pulse Rate 82 06/23/18 05:54 Respiratory Rate 22 06/23/18 05:54 Blood Pressure 117/42 06/23/18 05:54 O2 Sat by Pulse Oximetry 99 06/23/18 05:54 Temperature 97.6 F 06/23/18 05:54 Pulse Rate 61 06/23/18 06:44 Respiratory Rate 17 06/23/18 06:44 Blood Pressure 86/62 06/23/18 06:44 O2 Sat by Pulse Oximetry 100 06/23/18 06:44 Oxygen Delivery Oxygen Delivery Room Air Medical Decision Making - MDM Narrative Medical decision making narrative: 700 hours: Waiting on labs IV CT. Family has come in but not very good historians. Son similar to previous episodes in the past. Waiting to sign her out to the day physician Dr. Roth for further management disposition. Attestation Statement - Attestation Attestation: This documentation is done with the assistance of Dragon dictation. Despite efforts made to ensure accuracy, there may be inaccuracies in technical asst or spelling and typographical errors. I examined this patient and my medical decision-making was reviewed with the Resident Physician. I agree with the documented findings, disposition and treatment plan as described except to the extent set forth below. Patient seen and evaluated by Dr. Walker myself, I agree with his evaluation management plan, supervise care the patient outstay. Patient is brought in by squad family said they had not seen her in a day or so. They said the house was cold she was moving around on the floor was grunting but nonverbal agitated medics noted that she had a bruise on her forehead and some scrapes on her arm. She is making nonsensical sounds here. She is protecting her airway she is awake. She seems to lean more to the right side. She has no deviation of pupils. Looked in her old chart and she has had a history of similar in the past with what sounds like a psychiatric break. Were going to place an IV in her check a rectal temp is she appears cold. Give her warm fluids. Check labs CT of her head neck and she will need admission.
[2018-06-23] MEDS ORDERED: Hydrocortisone Sodium Succ 100 MG/2 ML VIAL IVP ONE (06:16)
--- NOTE | 2018-06-23 07:15 | Emergency Department Note ---
Disposition Clinical Impression: Confusion, Combative behavior, Altered mental status Disposition: Still a Patient Condition: Undetermined General Adult HPI - General Chief complaint: ED Altered Mental Status Stated complaint: altered Time Seen by Provider: 06/23/18 05:54 Source: patient - History of Present Illness HPI Narrative: Patient is signed out to myself by the overnight resident katharine goldstein. See his note for detailed hpi, ros, exam, and initial course. Briefly patient is a 67 year old female presenting for evaluation of altered mental status. Pain Scale: 0 - Related Data Home Medications Medication Instructions Recorded Confirmed Albuterol Sulfate [Albuterol 2 puff IH Q4H PRN 11/04/15 05/22/18 Inhaler] Nitroglycerin [Nitrostat] 0.4 mg SL Q5-6MIN PRN 03/11/17 05/22/18 Oxycodone HCl/Acetaminophen 1 tab PO TID PRN MDD 3 03/11/17 05/22/18 [Percocet 7.5-325 mg Tablet] Baclofen 20 mg PO TID 04/20/17 05/22/18 Tizanidine HCl 4 mg PO Q8H PRN 04/20/17 05/22/18 Metoprolol Succinate [Toprol Xl] 50 mg PO HS 10/01/17 05/22/18 Pantoprazole Sodium [Protonix] 40 mg PO DAILY 10/01/17 05/22/18 Spironolactone [Aldactone] 50 mg PO DAILY 10/01/17 05/22/18 Armodafinil 200 mg PO DAILY 04/11/18 05/22/18 Cholecalciferol (D-3) [Vitamin D] 1,000 unit PO DAILY 04/11/18 05/22/18 Atorvastatin Calcium [Lipitor] 20 mg PO DAILY 05/22/18 05/22/18 Furosemide [Lasix] 40 mg PO DAILY 05/22/18 05/22/18 Previous Rx's Medication Instructions Recorded Pramipexole [Mirapex] 0.5 mg PO DAILY #30 tablet 11/12/15 Cyanocobalamin (B-12) [Vitamin B12] 1,000 mcg PO DAILY #20 tablet 10/03/17 Ferrous Sulfate 325 mg PO BIDWM #40 tablet 10/03/17 Apixaban [Eliquis] 5 mg PO BID #60 tablet 05/26/18 predniSONE [PredniSONE] 10 mg PO DAILY 30 Days #30 tablet 05/26/18 Allergies Allergy/AdvReac Type Severity Reaction Status Date / Time mannitol [From Reclast] Allergy Hives Verified 04/20/17 11:48 zoledronic acid Allergy Hives Verified 04/20/17 11:48 [From Reclast] adhesive tape AdvReac Rash Verified 04/20/17 11:48 aspirin AdvReac Nausea Verified 04/20/17 11:48 cephalexin [From Keflex] AdvReac STOMACH Verified 04/20/17 11:48 UPSET codeine AdvReac Abdominal Verified 04/20/17 11:48 Pain Iodinated Contrast- Oral and AdvReac Hives AND Verified 04/20/17 11:48 IV Dye BREATHING ISSUES Past Medical History - Past Medical History Medical history: Reports: arthritis, atrial fibrillation, CHF, COPD, coronary artery disease, DVT, GERD, hyperlipidemia, hypertension, migraine, myocardial infarction, RA, renal disease, other (MS) Surgical history: Reports: appendectomy, colectomy (Partial), orthopedic, other, pacemaker/AICD, other Psychiatric history: Reports: no psych history 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
[2018-06-23 07:25] LABS: Bilirubin,Urine Small (Negative); Blood,Urine Negative (Negative); Clarity,Urine Clear (Clear); Color,Urine Yellow (Yellow); Glucose,Urine (UA) Normal (Normal); Ketones,Urine Trace mg/dL (Negative); Leukocyte Esterase,Urine Trace (Negative); Nitrite,Urine Negative (Negative); PH,Urine 5.5 pH Units (5.0-8.0); Protein,Urine Trace mg/dL (Neg-Trace); Specific Gravity,Urine 1.016 (1.010-1.025); Urobilinogen,Urine Normal (Normal)
[2018-06-23 07:27] LABS: Bacteria,Urine None Seen per hpf (None-Few); Hyaline Casts,Urine None Seen per lpf (None-Few); RBC,Urine 0-3 per hpf (0-3); Squamous Epithelial Cell,Urine Many per lpf (None-Few); WBC,Urine 0-3 per hpf (0-3)
--- NOTE | 2018-06-23 07:39 | Emergency Department Note ---
Disposition Clinical Impression: Confusion, Combative behavior, Hypokalemia Altered mental status Qualifiers: Altered mental status type: unspecified Qualified Code(s): R41.82 - Altered mental status, unspecified Disposition: Admitted As Inpatient Condition: Fair Referrals: Addy Fraire MD [Primary Care Provider] - Forms: ED Satisfaction Letter Time of Disposition: 09:54 General Adult HPI - General Chief complaint: ED Altered Mental Status Stated complaint: altered Time Seen by Provider: 06/23/18 05:54 Source: patient - History of Present Illness Pain Scale: 0 - Related Data Home Medications Medication Instructions Recorded Confirmed Albuterol Sulfate [Albuterol 2 puff IH Q4H PRN 11/04/15 05/22/18 Inhaler] Nitroglycerin [Nitrostat] 0.4 mg SL Q5-6MIN PRN 03/11/17 05/22/18 Oxycodone HCl/Acetaminophen 1 tab PO TID PRN MDD 3 03/11/17 05/22/18 [Percocet 7.5-325 mg Tablet] Baclofen 20 mg PO TID 04/20/17 05/22/18 Tizanidine HCl 4 mg PO Q8H PRN 04/20/17 05/22/18 Metoprolol Succinate [Toprol Xl] 50 mg PO HS 10/01/17 05/22/18 Pantoprazole Sodium [Protonix] 40 mg PO DAILY 10/01/17 05/22/18 Spironolactone [Aldactone] 50 mg PO DAILY 10/01/17 05/22/18 Armodafinil 200 mg PO DAILY 04/11/18 05/22/18 Cholecalciferol (D-3) [Vitamin D] 1,000 unit PO DAILY 04/11/18 05/22/18 Atorvastatin Calcium [Lipitor] 20 mg PO DAILY 05/22/18 05/22/18 Furosemide [Lasix] 40 mg PO DAILY 05/22/18 05/22/18 Previous Rx's Medication Instructions Recorded Pramipexole [Mirapex] 0.5 mg PO DAILY #30 tablet 11/12/15 Cyanocobalamin (B-12) [Vitamin B12] 1,000 mcg PO DAILY #20 tablet 10/03/17 Ferrous Sulfate 325 mg PO BIDWM #40 tablet 10/03/17 Apixaban [Eliquis] 5 mg PO BID #60 tablet 05/26/18 predniSONE [PredniSONE] 10 mg PO DAILY 30 Days #30 tablet 05/26/18 Allergies Allergy/AdvReac Type Severity Reaction Status Date / Time mannitol [From Reclast] Allergy Hives Verified 04/20/17 11:48 zoledronic acid Allergy Hives Verified 04/20/17 11:48 [From Reclast] adhesive tape AdvReac Rash Verified 04/20/17 11:48 aspirin AdvReac Nausea Verified 04/20/17 11:48 cephalexin [From Keflex] AdvReac STOMACH Verified 04/20/17 11:48 UPSET codeine AdvReac Abdominal Verified 04/20/17 11:48 Pain Iodinated Contrast- Oral and AdvReac Hives AND Verified 04/20/17 11:48 IV Dye BREATHING ISSUES Past Medical History - Past Medical History Medical history: Reports: arthritis, atrial fibrillation, CHF, COPD, coronary artery disease, DVT, GERD, hyperlipidemia, hypertension, migraine, myocardial infarction, RA, renal disease, other (MS) Surgical history: Reports: appendectomy, colectomy (Partial), orthopedic, other, pacemaker/AICD, other Psychiatric history: Reports: no psych history [employer] history: Reports: no [employer] history - Social History Smoking Status: Never smoker Smokeless Tobacco Status: No Alcohol use: Reports: none Drug use: Reports: none Physical Exam - General General appearance: alert Course Vital Signs Temperature 97.6 F 06/23/18 05:54 Pulse Rate 82 06/23/18 05:54 Respiratory Rate 22 06/23/18 05:54 Blood Pressure 117/42 06/23/18 05:54 O2 Sat by Pulse Oximetry 99 06/23/18 05:54 Temperature 97.6 F 06/23/18 05:54 Pulse Rate 61 06/23/18 08:09 Respiratory Rate 12 06/23/18 08:09 Blood Pressure 103/72 06/23/18 08:09 O2 Sat by Pulse Oximetry 95 06/23/18 08:09 Oxygen Delivery Oxygen Delivery Room Air Medical Decision Making - Lab Data Result diagrams: 06/23/18 08:05 06/23/18 08:05 Lab Results 06/23/18 06/23/18 06/23/18 Range/Units 07:14 07:14 08:05 WBC 6.1 (4.3-11.1) K/mcL RBC 3.71 L (3.82-4.97) M/mcL Hgb 12.4 (11.5-15.4) g/dL Hct 37.3 (35.3-44.9) % MCV 100.5 H (83.0-100.0) fL MCH 33.4 H (28.0-33.3) pg MCHC 33.2 (31.6-35.5) g/dL RDW 12.5 (11.5-14.5) % Plt Count 101 L (140-400) K/mcL MPV 10.6 (9.4-12.4) fL Immature Gran % 0.3 (0-4) % Seg Neutrophils % 76.5 % Lymphocytes % 16.0 % Monocytes % 6.8 % Eosinophils % 0.2 % Basophils % 0.2 % Neutrophils # 4.7 (1.6-8.9) K/mcL Lymphocytes # 1.0 (0.6-4.6) K/mcL Monocytes # 0.4 (0.0-1.3) K/mcL Eosinophils # 0.0 (0.0-0.6) K/mcL Basophils # 0.0 (0.0-0.2) K/mcL PT (9.4-12.1) Seconds INR Sodium (136-145) mEq/L Potassium (3.5-5.1) mEq/L Chloride (98-107) mEq/L Carbon Dioxide (23-29) mEq/L BUN (8-23) mg/dL Creatinine (0.60-1.20) mg/dL Est GFR ( Amer) (> 60) Est GFR (Non-Af Amer) (> 60) BUN/Creatinine Ratio (6-26) Glucose (70-105) mg/dL Calculated Osmolality (280-300) Lactic Acid (0.5-2.2) mmol/L Calcium (8.6-10.3) mg/dL Total Bilirubin (0.3-1.0) mg/dL AST (13-39) Units/L ALT (7-52) Units/L Alkaline Phosphatase (34-104) Units/L Ammonia (16-53) mcmol/L Troponin I (< 0.04) ng/mL Serum Total Protein (6.4-8.9) g/dL Albumin (3.5-5.7) g/dL Globulin (2.4-3.5) g/dL Albumin/Globulin Ratio (1.1-2.2) Random Cortisol mcg/dl Urine Color Yellow (Yellow) Urine Clarity Clear (Clear) Urine pH 5.5 (5.0-8.0) pH Units Ur Specific [place] 1.016 (1.010-1.025) Urine Protein Trace (Neg-Trace) mg/dL Urine Glucose (UA) Normal (Normal) mg/dL Urine Ketones Trace H (Negative) mg/dL Urine Blood Negative (Negative) Urine Nitrite Negative (Negative) Urine Bilirubin Small H (Negative) Urine Urobilinogen Normal (Normal) mg/dL Ur Leukocyte Esterase Trace H (Negative) Urine Microscopic RBC 0-3 (0-3) per hpf Urine Microscopic WBC 0-3 (0-3) per hpf Ur Squamous Epith Cells Many H (None-Few) per lpf Urine Bacteria None Seen (None-Few) per hpf Hyaline Casts None Seen (None-Few) per lpf Ur Culture Indicated? NO. A (NO) Salicylates (15.0-30.0) mg/dL Acetaminophen (10-20) mcg/mL Ur Drug Screen Interp See Below Ethyl Alcohol (Less than 10) mg/dL 06/23/18 06/23/18 06/23/18 Range/Units 08:05 08:05 08:05 WBC (4.3-11.1) K/mcL RBC (3.82-4.97) M/mcL Hgb (11.5-15.4) g/dL Hct (35.3-44.9) % MCV (83.0-100.0) fL MCH (28.0-33.3) pg MCHC (31.6-35.5) g/dL RDW (11.5-14.5) % Plt Count (140-400) K/mcL MPV (9.4-12.4) fL Immature Gran % (0-4) % Seg Neutrophils % % Lymphocytes % % Monocytes % % Eosinophils % % Basophils % % Neutrophils # (1.6-8.9) K/mcL Lymphocytes # (0.6-4.6) K/mcL Monocytes # (0.0-1.3) K/mcL Eosinophils # (0.0-0.6) K/mcL Basophils # (0.0-0.2) K/mcL PT 14.4 H (9.4-12.1) Seconds INR 1.3 Sodium 141 (136-145) mEq/L Potassium 3.0 L (3.5-5.1) mEq/L Chloride 107 (98-107) mEq/L Carbon Dioxide 20 L (23-29) mEq/L BUN 40 H (8-23) mg/dL Creatinine 1.84 H (0.60-1.20) mg/dL Est GFR ( Amer) 33 L (> 60) Est GFR (Non-Af Amer) 27 L (> 60) BUN/Creatinine Ratio 22 (6-26) Glucose 79 (70-105) mg/dL Calculated Osmolality 301 H (280-300) Lactic Acid 1.6 (0.5-2.2) mmol/L Calcium 9.0 (8.6-10.3) mg/dL Total Bilirubin 0.7 (0.3-1.0) mg/dL AST 26 (13-39) Units/L ALT 13 (7-52) Units/L Alkaline Phosphatase 75 (34-104) Units/L Ammonia (16-53) mcmol/L Troponin I 0.03 (< 0.04) ng/mL Serum Total Protein 5.9 L (6.4-8.9) g/dL Albumin 3.8 (3.5-5.7) g/dL Globulin 2.1 L (2.4-3.5) g/dL Albumin/Globulin Ratio 1.8 (1.1-2.2) Random Cortisol mcg/dl Urine Color (Yellow) Urine Clarity (Clear) Urine pH (5.0-8.0) pH Units Ur Specific [place] (1.010-1.025) Urine Protein (Neg-Trace) mg/dL Urine Glucose (UA) (Normal) mg/dL Urine Ketones (Negative) mg/dL Urine Blood (Negative) Urine Nitrite (Negative) Urine Bilirubin (Negative) Urine Urobilinogen (Normal) mg/dL Ur Leukocyte Esterase (Negative) Urine Microscopic RBC (0-3) per hpf Urine Microscopic WBC (0-3) per hpf Ur Squamous Epith Cells (None-Few) per lpf Urine Bacteria (None-Few) per hpf Hyaline Casts (None-Few) per lpf Ur Culture Indicated? (NO) Salicylates < 2.5 L (15.0-30.0) mg/dL Acetaminophen < 10 L (10-20) mcg/mL Ur Drug Screen Interp Ethyl Alcohol < 10 (Less than 10) mg/dL 06/23/18 06/23/18 Range/Units 08:05 08:05 WBC (4.3-11.1) K/mcL RBC (3.82-4.97) M/mcL Hgb (11.5-15.4) g/dL Hct (35.3-44.9) % MCV (83.0-100.0) fL MCH (28.0-33.3) pg MCHC (31.6-35.5) g/dL RDW (11.5-14.5) % Plt Count (140-400) K/mcL MPV (9.4-12.4) fL Immature Gran % (0-4) % Seg Neutrophils % % Lymphocytes % % Monocytes % % Eosinophils % % Basophils % % Neutrophils # (1.6-8.9) K/mcL Lymphocytes # (0.6-4.6) K/mcL Monocytes # (0.0-1.3) K/mcL Eosinophils # (0.0-0.6) K/mcL Basophils # (0.0-0.2) K/mcL PT (9.4-12.1) Seconds INR Sodium (136-145) mEq/L Potassium (3.5-5.1) mEq/L Chloride (98-107) mEq/L Carbon Dioxide (23-29) mEq/L BUN (8-23) mg/dL Creatinine (0.60-1.20) mg/dL Est GFR ( Amer) (> 60) Est GFR (Non-Af Amer) (> 60) BUN/Creatinine Ratio (6-26) Glucose (70-105) mg/dL Calculated Osmolality (280-300) Lactic Acid (0.5-2.2) mmol/L Calcium (8.6-10.3) mg/dL Total Bilirubin (0.3-1.0) mg/dL AST (13-39) Units/L ALT (7-52) Units/L Alkaline Phosphatase (34-104) Units/L Ammonia 41 (16-53) mcmol/L Troponin I (< 0.04) ng/mL Serum Total Protein (6.4-8.9) g/dL Albumin (3.5-5.7) g/dL Globulin (2.4-3.5) g/dL Albumin/Globulin Ratio (1.1-2.2) Random Cortisol > 60.0 mcg/dl Urine Color (Yellow) Urine Clarity (Clear) Urine pH (5.0-8.0) pH Units Ur Specific [place] (1.010-1.025) Urine Protein (Neg-Trace) mg/dL Urine Glucose (UA) (Normal) mg/dL Urine Ketones (Negative) mg/dL Urine Blood (Negative) Urine Nitrite (Negative) Urine Bilirubin (Negative) Urine Urobilinogen (Normal) mg/dL Ur Leukocyte Esterase (Negative) Urine Microscopic RBC (0-3) per hpf Urine Microscopic WBC (0-3) per hpf Ur Squamous Epith Cells (None-Few) per lpf Urine Bacteria (None-Few) per hpf Hyaline Casts (None-Few) per lpf Ur Culture Indicated? (NO) Salicylates (15.0-30.0) mg/dL Acetaminophen (10-20) mcg/mL Ur Drug Screen Interp Ethyl Alcohol (Less than 10) mg/dL Critical Care Time Critical Care Time: Yes Total Critical Care Time: 30 Attestation: 30 minutes of critical care time were spent with the patient with altered level of consciousness, review of labs and CT findings, reassessment, discussion with hospitalist Attestation Statement - Attestation Attestation: I did see the patient is spoke with her and examined her and reviewed the record. This point she is minimally responsive to tactile stimulation but does not respond verbally. I spoke with the grandsonin law and his girlfriend who stated the patient is normally mentally fine however has had 5 or 6 of these episodes over the last year. She normally drives but has had episodes with depression in the past. She has a dog that she cares for home. She does have a lock box for her medicines that would dispense 1 days worth of medicines at a time and this was done because she had been taking too many medicines and a day in the past. The grandson in law lives with her at times. CT brain and neck are pending, she does have a small bruise in the left forehead, pupils are equally round. [id number] Guerin who except the patient for admission. I did review CT scan findings as well as lab findings without acute abnormality. I did speak with the lab about adding on the toxicology screen on the urine. [id number]
[2018-06-23 08:13] LABS: Basophils % 0.2 %; Eosinophils % 0.2 %; Hematocrit 37.3 % (35.3-44.9); Hemoglobin 12.4 g/dL (11.5-15.4); Immature Granulocytes % 0.3 % (0-4); Mean Corpuscular HGB Conc 33.2 g/dL (31.6-35.5); Mean Corpuscular Hemoglobin 33.4 pg (28.0-33.3); Mean Corpuscular Volume 100.5 fL (83.0-100.0); Mean Platelet Volume 10.6 fL (9.4-12.4); Monocytes # 0.4 K/mcL (0.0-1.3); Monocytes % 6.8 %; Neutrophils # 4.7 K/mcL (1.6-8.9); Platelet Count 101 K/mcL (140-400); Red Blood Count 3.71 M/mcL (3.82-4.97); Red Cell Distribution Width 12.5 % (11.5-14.5); Segmented Neutrophils % 76.5 %
[2018-06-23 08:23] LABS: INR 1.3; Prothrombin Time 14.4 Seconds (9.4-12.1)
[2018-06-23 08:39] LABS: Troponin I 0.03 ng/mL (< 0.04)
[2018-06-23 09:02] LABS: Acetaminophen < 10 mcg/mL (10-20); Alanine Aminotransferase 13 Units/L (7-52); Albumin 3.8 g/dL (3.5-5.7); Albumin/Globulin Ratio 1.8 (1.1-2.2); Alkaline Phosphatase 75 Units/L (34-104); Aspartate Amino Transferase 26 Units/L (13-39); BUN/Creatinine Ratio 22 (6-26); Bilirubin,Total 0.7 mg/dL (0.3-1.0); Blood Urea Nitrogen 40 mg/dL (8-23); Carbon Dioxide 20 mEq/L (23-29); Chloride 107 mEq/L (98-107); Ethanol < 10 mg/dL (Less than 10); Globulin 2.1 g/dL (2.4-3.5); Glucose 79 mg/dL (70-105); Osmolality,Calculated 301 (280-300); Salicylate < 2.5 mg/dL (15.0-30.0); Sodium 141 mEq/L (136-145); Total Protein 5.9 g/dL (6.4-8.9); eGFR For Non-African Americans 27 (> 60)
[2018-06-23 10:06] LABS: Amphetamine Screen,Urine Negative ng/mL (Cutoff=1000); Barbiturate Screen,Urine Negative ng/mL (Cutoff=200); Benzodiazepines Screen,Urine Positive ng/mL (Cutoff=200); Cannabinoid Screen,Urine Negative ng/mL (Cutoff = 50); Cocaine Screen,Urine Negative ng/mL (Cutoff= 300); Opiate Screen,Urine Negative ng/mL (Cutoff=300); Phencyclidine Screen,Urine Negative ng/mL (Cutoff=25)
[2018-06-23] MEDS ORDERED: Naloxone 0.4 MG/ML INJ IVP PRN (10:25)
[2018-06-23] MEDS: 0.9 % Sodium Chloride w KCl 20 MEQ/1,000 ML MLS IVC SCH (16:58)
[2018-06-23] MEDS: *HR* LORazepam 2 MG/ML VIAL IVP PRN (17:38)
[2018-06-23] MEDS ORDERED: Ipratropium/Albuterol Neb 3 ML IH PRN (17:41)
[2018-06-23] MEDS ORDERED: Haloperidol Lactate 5 MG/ML VIAL IVP ONE (20:42)
--- NOTE | 2018-06-23 21:09 | Internal Med History&Physical ---
Date of Encounter: 06/23/18 Time of Encounter: 19:00 Internal Medicine - H&P: HPI Chief complaint: AGITATION Admitted From: Home Plans for Post Hospital Care: Home History of present illness: The patient is a 67-year-old woman. She was brought to our emergency room by ambulance today morning around 5:50 AM. Evidently, this patient showed quite a bit of agitation and lack of control in her behavior in the last several hours preceding this admission. She did not seem to be dangerous for herself or others. However, she seemed to be uncomfortable. Eventually, her family called for EMS. The patient got IV/IM Ativan in the emergency department. I found her unresponsive to verbal stimuli, when I examined her in the morning. I met her and her family later in the afternoon. I was able to get her alert rubbing her sternal area. She talked to me and followed my commands. She knew her name. She knew, where she is. She could not tell us, what has happened to her recently. According to the family, the patient has had 5 or 6 episodes, as described above in the last 1 year he. They lasted for less than 24 hours. She always refused coming to the emergency department. This time she agreed for evaluation in our hospital. Sometime later in the afternoon she became agitated again. She was moving her upper extremities continuously. I found her crying at times. She did not calm down, when I asked her to do that. I decided to give her low dose of IV Ativan. I decided to start her on Zyprexa Zydis. When she was alert and talking to me, she did negative for any psychiatric evaluation. PAST MEDICAL HX: She has been treated for coronary artery disease, chronic diastolic heart failure, hypertension, hyperlipidemia, GERD and COPD. She takes Percocet, baclofen and when necessary tizanidine for low back pain. She takes armodafinil for sleep disorder. She is to have atrial fibrillation in the past. Currently, she has a paced rhythm/rate. There is also questionable history of rheumatoid arthritis and multiple sclerosis. PAST FAMILY HX: Not obtainable from the patient. PAST SOCIAL HX: As per her family, there is no history of alcohol, tobacco or illicit drug use for this patient. REVIEW OF SYSTEMS: All 14 organ systems were reviewed by me with the patients family. Positive and pertinent negative findings are listed above. The rest of organ systems is negative. PHYSICAL EXAM: Skin: Free of rash and discoloration. Eyes: Sclera is white. There is no discharge from eyes. ENMT: Oral/pharyngeal mucosa is normal in appearance. There is no discharge from nose or ears. Respiratory: Normal breath sounds with no crackles and wheezes bilaterally. CV: Heart is regular with no gallop or murmur. GI: Abdomen is flat and soft with no palpable mass or visceromegaly. : There is no tenderness in patient's flanks bilaterally. Neuro exam: He has good strength in upper and lower extremities. He has normal eye movements. Psychiatric: He has normal exam, when she was alert/not agitated. ADDITIONAL DATA: CT of head showed age-related changes. CT of cervical spine did not show any significant abnormalities. Chest x-ray showed normal findings. CBC shows hemoglobin of 12.4 with normal WBC. Platelet count is 101,000. 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 Potassium is 3.0; the rest of electrolytes is normal. Creatinine is 1.84; was 1.09 in April. Liver function tests are normal. UA is normal. She has normal levels of salicylates, acetaminophen and ethanol alcohol. Urine drug screen is positive for benzodiazepines (received Ativan in the emergency department). Otherwise, is negative. A/P: Altered mental status. It may be secondary to multiple stronger medications she takes. It may be also withdrawal reaction to Percocet. I will try to keep her medications at that the very minimum. The dose of Percocet will be decreased. Interestingly, urine drug screen he is not showing opiates. She may also have dementia with psychotic featuresshowing times. We may need to present her to psychiatry, when medically stable. Acute kidney injury/hypokalemia. She will benefit from IV normal saline with addition of potassium chloride. Her other problems are mentioned in past medical history. They seem to be stable at this time. Past Med Surg Social Fam HX - Past Medical History Medical history: arthritis, atrial fibrillation, CHF, COPD, coronary artery disease, DVT, GERD, hyperlipidemia, hypertension, migraine, myocardial infarction, osteoporosis, RA, renal disease, other Additional medical history: MS, narcolepsy, scoliosis, right brain mass, colon polyps Psychiatric history: no psych history - Past Surgical History Surgical History: appendectomy, colectomy, orthopedic, other, pacemaker/AICD, other Additional surgical history: nephrectomy - Social History Smoking Status: Never smoker Smokeless Tobacco Status: No Alcohol use: none Drug use: none - Family History Mother History Unknown: Yes Living Status: Hx Family Cardiac Disorders: Yes (Hypertension) Hx Family Cancer: Yes (Breast) Hx Family Endocrine Disorder: Yes (Diabetes) Father History Unknown: Yes Living Status: Hx Family Cardiac Disorders: Yes (Hypertension) Hx Family Respiratory Disorders: No Hx Family Cancer: Yes (Colon cancer) Hx Family GI Disorders: No Hx Family Endocrine Disorder: Yes (Diabetes) Hx Family Neuromuscular Disorders: No Hx Family Neurologic Disorders: No Hx Family HEENT Disorders: No Hx Family Autoimmune Disorders: No Internal Medicine - H&P: Meds Albuterol Sulfate [Albuterol Inhaler] 2 puff IH Q4H PRN 11/04/15 [History] Pramipexole [Mirapex] 0.5 mg PO DAILY #30 tablet 11/12/15 [Rx] Nitroglycerin [Nitrostat] 0.4 mg SL Q5-6MIN PRN 03/11/17 [History] Oxycodone HCl/Acetaminophen [Percocet 7.5-325 mg Tablet] 1 tab PO TID PRN MDD 3 03/11/17 [History] Baclofen 20 mg PO TID 04/20/17 [History] Tizanidine HCl 4 mg PO Q8H PRN 04/20/17 [History] Metoprolol Succinate [Toprol Xl] 50 mg PO HS 10/01/17 [History] Pantoprazole Sodium [Protonix] 40 mg PO DAILY 10/01/17 [History] Spironolactone [Aldactone] 50 mg PO DAILY 10/01/17 [History] Cyanocobalamin (B-12) [Vitamin B12] 1,000 mcg PO DAILY #20 tablet 10/03/17 [Rx] Ferrous Sulfate 325 mg PO BIDWM #40 tablet 10/03/17 [Rx] Armodafinil 200 mg PO DAILY 04/11/18 [History] Cholecalciferol (D-3) [Vitamin D] 1,000 unit PO DAILY 04/11/18 [History] Atorvastatin Calcium [Lipitor] 20 mg PO DAILY 05/22/18 [History] Furosemide [Lasix] 40 mg PO DAILY 05/22/18 [History] Apixaban [Eliquis] 5 mg PO BID #60 tablet 05/26/18 [Rx] predniSONE [PredniSONE] 10 mg PO DAILY 30 Days #30 tablet 05/26/18 [Rx] Allergy/AdvReac Type Severity Reaction Status Date / Time mannitol [From Reclast] Allergy Hives Verified 04/20/17 11:48 zoledronic acid Allergy Hives Verified 04/20/17 11:48 [From Reclast] adhesive tape AdvReac Rash Verified 04/20/17 11:48 aspirin AdvReac Nausea Verified 04/20/17 11:48 cephalexin [From Keflex] AdvReac STOMACH Verified 04/20/17 11:48 UPSET codeine AdvReac Abdominal Verified 04/20/17 11:48 Pain Iodinated Contrast- Oral and AdvReac Hives AND Verified 04/20/17 11:48 IV Dye BREATHING ISSUES - Constitutional Vitals: Temp Pulse Resp BP Pulse Ox 97.5 F L 93 16 123/71 95 06/23/18 17:13 06/23/18 17:13 06/23/18 17:13 06/23/18 17:13 06/23/18 17:13 General appearance: Present: A&O X 3, no acute distress, answers questions appropriately Exam: WHEN SHE WAS ALERT AND TALKING TO ME... Internal Med - H&P Results - Labs CBC & Chem 7: 06/23/18 08:05 06/23/18 08:05 Labs: Short CBC 06/23/18 Range/Units 08:05 WBC 6.1 (4.3-11.1) K/mcL Hgb 12.4 (11.5-15.4) g/dL Hct 37.3 (35.3-44.9) % Plt Count 101 L (140-400) K/mcL Neutrophils # 4.7 (1.6-8.9) K/mcL BMP 06/23/18 08:05 Sodium 141 Potassium 3.0 L Chloride 107 Carbon Dioxide 20 L BUN 40 H Creatinine 1.84 H Glucose 79 Calcium 9.0 Cardiac Enzymes 06/23/18 Range/Units 08:05 Troponin I 0.03 (< 0.04) ng/mL Liver Function 06/23/18 Range/Units 08:05 Total Bilirubin 0.7 (0.3-1.0) mg/dL AST 26 (13-39) Units/L ALT 13 (7-52) Units/L Alkaline Phosphatase 75 (34-104) Units/L Albumin 3.8 (3.5-5.7) g/dL Urine 06/23/18 Range/Units 07:14 Urine Color Yellow (Yellow) Urine Clarity Clear (Clear) Urine pH 5.5 (5.0-8.0) pH Units Ur Specific [place] 1.016 (1.010-1.025) Urine Protein Trace (Neg-Trace) mg/dL Urine Glucose (UA) Normal (Normal) mg/dL - Impressions ITS Impressions Cervical Spine CT 06/23/18 05:54 IMPRESSION: No acute fracture of the cervical spine. Anterior fusion C3-C5. Moderate degenerative changes. Stable. D/ / Fritz Garrett MD / Fritz Garrett MD Interpreting Provider: Fritz Garrett MD Head CT 06/23/18 05:54 IMPRESSION: No acute intracranial abnormality. D/ / 06/23/2018 08:41:51 eDll Joy MD / [facility] Interpreting Provider: Dell Joy MD Chest X-Ray 06/23/18 05:55 IMPRESSION: No acute disease. D/ / Scooter Butler MD / Scooter Butler MD Interpreting Provider: Scooter Butler MD - Assessment and Plan (1) Altered mental status Current Visit: Yes Status: Acute Qualifiers: Altered mental status type: transient alteration of awareness Qualified Code(s): R40.4 - Transient alteration of awareness (2) Acute kidney injury Current Visit: Yes Status: Acute (3) Hypokalemia Current Visit: Yes Status: Acute - Time Spent With Patient Total time spent is greater than 50% in coordination of care (as documented) at patient's floor/unit and/or counseling patient: 25 - 35 minutes
[2018-06-23] MEDS: Apixaban 5 MG TABLET PO SCH (21:11)
[2018-06-23] MEDS: Metoprolol XL (24 HR) Succ 50 MG TAB.ER.24H PO SCH (21:12)
[2018-06-23] MEDS ORDERED: OLANZapine 5 MG TAB.RAPDIS PO SCH (21:15)
[2018-06-24 02:22] LABS: Basophils % 0.6 %; Eosinophils % 0.8 %; Hematocrit 36.1 % (35.3-44.9); Hemoglobin 11.8 g/dL (11.5-15.4); Immature Granulocytes % 0.4 % (0-4); Lymphocytes # 1.7 K/mcL (0.6-4.6); Lymphocytes % 32.4 %; Mean Corpuscular HGB Conc 32.7 g/dL (31.6-35.5); Mean Corpuscular Hemoglobin 33.1 pg (28.0-33.3); Mean Corpuscular Volume 101.4 fL (83.0-100.0); Mean Platelet Volume 11.1 fL (9.4-12.4); Monocytes # 0.5 K/mcL (0.0-1.3); Monocytes % 9.5 %; Platelet Count 100 K/mcL (140-400); Red Blood Count 3.56 M/mcL (3.82-4.97); Red Cell Distribution Width 12.9 % (11.5-14.5); Segmented Neutrophils % 56.3 %
[2018-06-24 02:40] LABS: Calcium 8.8 mg/dL (8.6-10.3); Magnesium 2.1 mg/dL (1.6-2.6); Potassium 3.7 mEq/L (3.5-5.1)
[2018-06-24] MEDS: 0.9 % Sodium Chloride w KCl 20 MEQ/1,000 ML MLS IVC SCH ×2 (03:18→09:30)
[2018-06-24] MEDS: predniSONE 10 MG TABLET PO SCH (09:29)
[2018-06-24] MEDS: Apixaban 5 MG TABLET PO SCH ×2 (09:29→19:47)
[2018-06-24] MEDS: *HR* LORazepam 2 MG/ML VIAL IVP PRN (09:29)
[2018-06-24] MEDS: ARMODAFINIL 200 MG PO SCH (09:30)
--- NOTE | 2018-06-24 10:49 | Consult Note ---
Date of Encounter: 06/24/18 Time of Encounter: 10:44 Assessment & Recommendation (1) Altered mental status Current visit: Yes Status: Acute Assessment & Recommendation: Unable to arouse client to get any information from her and no family at bedside to provide collateral. No documented history of mental health problems that this technical proposal writer could fine. Takes multiple sedating meds at home and there is documentation of prior hospitalizations for mental status changes that were felt to be due to overmedication. Agree that the best plan for now would be to back off on some of her home medication doses to see if she becomes more alert and able to provide additional information. Agree that holding/reducing Percocet, Tizanidine, and Baclofen would be best place to start. Mirapex and Prednisone can cause altered mental status as well. Would not necessarily stop these meds but can look at changing them if mental status does not improve with reductions in Percocet, Tizanidine, and Baclofen. Qualifiers: Altered mental status type: transient alteration of awareness Qualified Code(s): R40.4 - Transient alteration of awareness History of Present Illness Requesting Physician: Jeremiah Brenner MD Reason for consult: AMS History of present illness: Ms. Roberts is a 67 year old female who presented to the hospital for AMS. According to notes she has been having "episodes" of confusion off and on for the past year. Normally does not come to the hospital and episodes resolve on their own. No documented history of mental health problems that this technical proposal writer could fine and no history of having been on 1A. However, there are past records of hospitalizations for mental status changes that were felt to be related to overmedication. On eval today client is unarousable. She will open her eyes briefly when this technical proposal writer shakes her but will immediately fall back to sleep. Unable to get any history from her at this time. No family at bedside. According to records she takes multiple sedating medications at home including Percocet, Tizanidine, and Baclofen. Also prescribed Mirapex and Prednisone which can cause confusion/altered mental status. Tox screen negative except for Benzos which she was given in the ER. CC: Jeremiah Brenner MD Past Med Surg Social Fam HX - Past Medical History Medical history: arthritis, atrial fibrillation, CHF, COPD, coronary artery disease, DVT, GERD, hyperlipidemia, hypertension, migraine, myocardial infarction, osteoporosis, RA, renal disease, other - Past Psychiatric History Psychiatric history: Reports: no psych history Family psychiatric history: Unknown Family History of Suicide: Unknown - Past Surgical History Surgical History: appendectomy, colectomy, orthopedic, other, pacemaker/AICD, other - Social History Smoking Status: Never smoker Smokeless Tobacco Status: No Alcohol use: none Drug use: none - Family History Mother History Unknown: Yes Living Status: Hx Family Cardiac Disorders: Yes (Hypertension) Hx Family Cancer: Yes (Breast) Hx Family Endocrine Disorder: Yes (Diabetes) Father History Unknown: Yes Living Status: Hx Family Cardiac Disorders: Yes (Hypertension) Hx Family Respiratory Disorders: No Hx Family Cancer: Yes (Colon cancer) Hx Family GI Disorders: No Hx Family Endocrine Disorder: Yes (Diabetes) Hx Family Neuromuscular Disorders: No Hx Family Neurologic Disorders: No Hx Family HEENT Disorders: No Hx Family Autoimmune Disorders: No Medications & Allergies Albuterol Sulfate [Albuterol Inhaler] 2 puff IH Q4H PRN 11/04/15 [History] Pramipexole [Mirapex] 0.5 mg PO DAILY #30 tablet 11/12/15 [Rx] Nitroglycerin [Nitrostat] 0.4 mg SL Q5-6MIN PRN 03/11/17 [History] Oxycodone HCl/Acetaminophen [Percocet 7.5-325 mg Tablet] 1 tab PO TID PRN MDD 3 03/11/17 [History] Baclofen 20 mg PO TID 04/20/17 [History] Tizanidine HCl 4 mg PO Q8H PRN 04/20/17 [History] Metoprolol Succinate [Toprol Xl] 50 mg PO HS 10/01/17 [History] Pantoprazole Sodium [Protonix] 40 mg PO DAILY 10/01/17 [History] Spironolactone [Aldactone] 50 mg PO DAILY 10/01/17 [History] Cyanocobalamin (B-12) [Vitamin B12] 1,000 mcg PO DAILY #20 tablet 10/03/17 [Rx] Ferrous Sulfate 325 mg PO BIDWM #40 tablet 10/03/17 [Rx] Armodafinil 200 mg PO DAILY 04/11/18 [History] Cholecalciferol (D-3) [Vitamin D] 1,000 unit PO DAILY 04/11/18 [History] Atorvastatin Calcium [Lipitor] 20 mg PO DAILY 05/22/18 [History] Furosemide [Lasix] 40 mg PO DAILY 05/22/18 [History] Apixaban [Eliquis] 5 mg PO BID #60 tablet 05/26/18 [Rx] predniSONE [PredniSONE] 10 mg PO DAILY 30 Days #30 tablet 05/26/18 [Rx] Allergy/AdvReac Type Severity Reaction Status Date / Time mannitol [From Reclast] Allergy Hives Verified 04/20/17 11:48 zoledronic acid Allergy Hives Verified 04/20/17 11:48 [From Reclast] adhesive tape AdvReac Rash Verified 04/20/17 11:48 aspirin AdvReac Nausea Verified 04/20/17 11:48 cephalexin [From Keflex] AdvReac STOMACH Verified 04/20/17 11:48 UPSET codeine AdvReac Abdominal Verified 04/20/17 11:48 Pain Iodinated Contrast- Oral and AdvReac Hives AND Verified 04/20/17 11:48 IV Dye BREATHING ISSUES Review of Systems Constitutional: Reports: other Eyes: Denies: eye pain, vision change Ears, Nose, Throat: Denies: ear pain, throat pain, dental pain, hearing loss, congestion Cardiovascular: Denies: chest pain, palpitations, dyspnea on exertion Respiratory: Denies: cough, dyspnea, wheezes Gastrointestinal: Denies: abdominal pain, nausea, vomiting, diarrhea, constipation Genitourinary female: Denies: urgency, dysuria, frequency, abnormal menses, dyspareunia Musculoskeletal: Denies: joint swelling, joint pain Integumentary: Denies: rash, lesions, pruritus Neurological: Reports: confusion, other Endocrine: Denies: fatigue, heat or cold intolerance Hematologic/Lymphatic: Denies: easy bruising, lymphadenopathy Allergic/Immunologic: Denies: urticaria, itchy eyes Psychiatry Exam - Constitutional Vitals: Temp Pulse Resp BP Pulse Ox 98.1 F 66 14 135/87 97 06/24/18 07:07 06/24/18 07:07 06/24/18 07:07 06/24/18 07:07 06/24/18 07:07 General appearance: age & developmentally appropriate - Musculoskeletal Gait: other Station: relaxed Strength & Tone: other - Psychiatric Patient Orientation: Yes Other Level of alertness: Sedated Behavior: other Psychomotor activity: Normal Eye Contact: Fleeting Contact Mood Description: Other Affect description: other Speech Volume: No speech Attention Span Ability: Unable to Focus, Unable to Sustain Attention Patient Reliability: Not Reliable Historian Results - Labs Labs: Laboratory Last Values WBC 5.2 K/mcL (4.3-11.1) 06/24/18 01:39 RBC 3.56 M/mcL (3.82-4.97) L 06/24/18 01:39 Hgb 11.8 g/dL (11.5-15.4) 06/24/18 01:39 Hct 36.1 % (35.3-44.9) 06/24/18 01:39 MCV 101.4 fL (83.0-100.0) H 06/24/18 01:39 MCH 33.1 pg (28.0-33.3) 06/24/18 01:39 MCHC 32.7 g/dL (31.6-35.5) 06/24/18 01:39 RDW 12.9 % (11.5-14.5) 06/24/18 01:39 Plt Count 100 K/mcL (140-400) L 06/24/18 01:39 MPV 11.1 fL (9.4-12.4) 06/24/18 01:39 Immature Gran % 0.4 % (0-4) 06/24/18 01:39 Seg Neutrophils % 56.3 % 06/24/18 01:39 Lymphocytes % 32.4 % 06/24/18 01:39 Monocytes % 9.5 % 06/24/18 01:39 Eosinophils % 0.8 % 06/24/18 01:39 Basophils % 0.6 % 06/24/18 01:39 Neutrophils # 3.0 K/mcL (1.6-8.9) 06/24/18 01:39 Lymphocytes # 1.7 K/mcL (0.6-4.6) 06/24/18 01:39 Monocytes # 0.5 K/mcL (0.0-1.3) 06/24/18 01:39 Eosinophils # 0.0 K/mcL (0.0-0.6) 06/24/18 01:39 Basophils # 0.0 K/mcL (0.0-0.2) 06/24/18 01:39 PT 14.4 Seconds (9.4-12.1) H 06/23/18 08:05 INR 1.3 06/23/18 08:05 Sodium 145 mEq/L (136-145) 06/24/18 01:39 Potassium 3.7 mEq/L (3.5-5.1) 06/24/18 01:39 Chloride 115 mEq/L (98-107) H 06/24/18 01:39 Carbon Dioxide 23 mEq/L (23-29) 06/24/18 01:39 BUN 33 mg/dL (8-23) H 06/24/18 01:39 Creatinine 1.46 mg/dL (0.60-1.20) H 06/24/18 01:39 Est GFR ( Amer) 43 (> 60) L 06/24/18 01:39 Est GFR (Non-Af Amer) 36 (> 60) L 06/24/18 01:39 BUN/Creatinine Ratio 23 (6-26) 06/24/18 01:39 Glucose 73 mg/dL (70-105) 06/24/18 01:39 POC Glucose 107 mg/dL (70-99) H 06/23/18 17:05 Calculated Osmolality 306 (280-300) H 06/24/18 01:39 Lactic Acid 1.6 mmol/L (0.5-2.2) 06/23/18 08:05 Calcium 8.8 mg/dL (8.6-10.3) 06/24/18 01:39 Magnesium 2.1 mg/dL (1.6-2.6) 06/24/18 01:39 Total Bilirubin 0.7 mg/dL (0.3-1.0) 06/23/18 08:05 AST 26 Units/L (13-39) 06/23/18 08:05 ALT 13 Units/L (7-52) 06/23/18 08:05 Alkaline Phosphatase 75 Units/L (34-104) 06/23/18 08:05 Ammonia 41 mcmol/L (16-53) 06/23/18 08:05 Troponin I 0.03 ng/mL (< 0.04) 06/23/18 08:05 Serum Total Protein 5.9 g/dL (6.4-8.9) L 06/23/18 08:05 Albumin 3.8 g/dL (3.5-5.7) 06/23/18 08:05 Globulin 2.1 g/dL (2.4-3.5) L 06/23/18 08:05 Albumin/Globulin Ratio 1.8 (1.1-2.2) 06/23/18 08:05 Random Cortisol > 60.0 mcg/dl 06/23/18 08:05 Urine Color Yellow (Yellow) 06/23/18 07:14 Urine Clarity Clear (Clear) 06/23/18 07:14 Urine pH 5.5 pH Units (5.0-8.0) 06/23/18 07:14 Ur Specific [place] 1.016 (1.010-1.025) 06/23/18 07:14 Urine Protein Trace mg/dL (Neg-Trace) 06/23/18 07:14 Urine Glucose (UA) Normal mg/dL (Normal) 06/23/18 07:14 Urine Ketones Trace mg/dL (Negative) H 06/23/18 07:14 Urine Blood Negative (Negative) 06/23/18 07:14 Urine Nitrite Negative (Negative) 06/23/18 07:14 Urine Bilirubin Small (Negative) H 06/23/18 07:14 Urine Urobilinogen Normal mg/dL (Normal) 06/23/18 07:14 Ur Leukocyte Esterase Trace (Negative) H 06/23/18 07:14 Urine Microscopic RBC 0-3 per hpf (0-3) 06/23/18 07:14 Urine Microscopic WBC 0-3 per hpf (0-3) 06/23/18 07:14 Ur Squamous Epith Cells Many per lpf (None-Few) H 06/23/18 07:14 Urine Bacteria None Seen per hpf (None-Few) 06/23/18 07:14 Hyaline Casts None Seen per lpf (None-Few) 06/23/18 07:14 Ur Culture Indicated? NO. (NO) A 06/23/18 07:14 Salicylates < 2.5 mg/dL (15.0-30.0) L 06/23/18 08:05 Urine Opiates Screen Negative ng/mL (Txlzzn=665) 06/23/18 07:14 Acetaminophen < 10 mcg/mL (10-20) L 06/23/18 08:05 Ur Barbiturates Screen Negative ng/mL (Iijkjh=438) 06/23/18 07:14 Ur Phencyclidine Scrn Negative ng/mL (Cutoff=25) 06/23/18 07:14 Ur Amphetamines Screen Negative ng/mL (Ekwqqr=9667) 06/23/18 07:14 U Benzodiazepines Scrn Positive ng/mL (Rkydix=112) H 06/23/18 07:14 Urine Cocaine Screen Negative ng/mL (Cutoff= 300) 06/23/18 07:14 U Marijuana (THC) Screen Negative ng/mL (Cutoff = 50) 06/23/18 07:14 Ur Drug Screen Interp See Below 06/23/18 07:14 Ethyl Alcohol < 10 mg/dL (Less than 10) 06/23/18 08:05 - Impressions Impressions Head CT 06/23/18 05:54 IMPRESSION: No acute intracranial abnormality. D/ / 06/23/2018 08:41:51 Dell Joy MD / [facility] Interpreting Provider: Dell Joy MD Consult Discharge Plan - Plan Referrals: Addy Fraire MD [Primary Care Provider] -
--- NOTE | 2018-06-24 14:32 | Internal Med Progress Note ---
Hospitalist Progress Note - Encounter Date of Encounter: 06/24/18 Time of Encounter: 14:28 - Subjective Interval History: Ms. Roberts is a 67 y/o F with known past medical history of coronary artery disease, chronic diastolic heart failure, hypertension, hyperlipidemia, GERD, COPD and chronic low back pain who is on multiple pain medication Percocet, ba clofen and tizanidine, also taked Armodafinil, Ambien, Mirapex and Effexor pt was brought into ER by family for altered mental status and delirium. She was admitted in the hospital and placed on chemist food. She was started on aggressive IV hydration. Also helps most of her psychiatric and pain medication. Today patient is little more alert, awake and O x 4. However she still looks sleepy. She did mention the reason why she came to the ER she has been having frequent falls at home. With recent fall she had injury to left great toe. - Exam Vitals: Temp Pulse Resp BP Pulse Ox 97.3 F L 69 14 94/60 96 06/24/18 11:01 06/24/18 11:01 06/24/18 11:01 06/24/18 11:01 06/24/18 11:01 Exam: Gen: Alert, awake, Oriented to time,place and person, sleepy Chest: Diminished breath sounds B/L, No wheezing, No crackles, No rales Heart: S1S2+ RRR No murmurs Abd: Soft, NT, BS +, No organomegaly Ext: No edema, pulses are palpable, No calf tenderness, bruise over left great toe - severe tenderness Neuro : No focal neuro deficits Psych: No suicidal ideation, no hallucinations / delusions Skin: No rash. - Assessment and Plan (1) Altered mental status Current Visit: Yes Status: Acute Assessment and Plan: Multi factorial mostly due to polypharmacy as well as metabolic encephalopathy due to dehydrat ion Improving cont holding her narcotic, pain meds and sedatives Will give Ativan PRN for withdrawal symptoms / agitation counseled the patient about polypharmacy (2) Injury of left great toe Current Visit: Yes Status: Acute Assessment and Plan: Will get X ray of Left foot on Tylenol PRN and low dose percocet for pain (3) Acute kidney injury Current Visit: Yes Status: Acute Assessment and Plan: Kaveh with CKD-2 Improving Cr came down to 1.46 gentle IV hydration avoid nephrotoxic medication (4) Hypokalemia Current Visit: Yes Status: Acute Assessment and Plan: improved (5) At risk for polypharmacy Current Visit: No Status: Acute (6) GERD (gastroesophageal reflux disease) Current Visit: No Status: Acute Assessment and Plan: on PPI (7) Weakness Current Visit: No Status: Acute Assessment and Plan: PT / OT eval (8) PAF (paroxysmal atrial fibrillation) Current Visit: No Status: Chronic Assessment and Plan: rate controlled with Metoprolol on Eliquis for anti coag (9) Adrenal insufficiency due to steroid withdrawal Current Visit: No Status: Suspected Assessment and Plan: cont home med Prednisone - Time Spent with Patient Total time spent is greater than 50% in coordination of care (as documented) at patient's floor/unit and/or counseling patient: Internal Medicine: Result - Labs CBC & Chem 7: 06/24/18 01:39 06/24/18 01:39 Labs: Short CBC 06/24/18 Range/Units 01:39 WBC 5.2 (4.3-11.1) K/mcL Hgb 11.8 (11.5-15.4) g/dL Hct 36.1 (35.3-44.9) % Plt Count 100 L (140-400) K/mcL Neutrophils # 3.0 (1.6-8.9) K/mcL BMP 06/24/18 01:39 Sodium 145 Potassium 3.7 Chloride 115 H Carbon Dioxide 23 BUN 33 H Creatinine 1.46 H Glucose 73 Calcium 8.8 - ABG Interpretation ABG results: PT/INR, D-dimer PT 14.4 Seconds (9.4-12.1) H 06/23/18 08:05 - Impressions Impressions Head CT 06/23/18 05:54 IMPRESSION: No acute intracranial abnormality. D/ / 06/23/2018 08:41:51 Dell Joy MD / [facility] Interpreting Provider: Dell Joy MD Consult Discharge Plan - Plan Referrals: Addy Fraire MD [Primary Care Provider] - (1) Altered mental status Qualifiers: Altered mental status type: transient alteration of awareness Qualified Code(s): R40.4 - Transient alteration of awareness (6) GERD (gastroesophageal reflux disease) Qualifiers: Esophagitis presence: esophagitis presence not specified Qualified Code(s): K21.9 - Gastro-esophageal reflux disease without esophagitis
[2018-06-24] MEDS: Metoprolol XL (24 HR) Succ 50 MG TAB.ER.24H PO SCH (19:47)
[2018-06-25] MEDS: *HR* OxyCODONE/APAP 5/325 TABLET PO PRN ×2 (01:12→20:04)
[2018-06-25 05:20] LABS: Basophils % 0.4 %; Eosinophils # 0.1 K/mcL (0.0-0.6); Eosinophils % 0.9 %; Hemoglobin 10.8 g/dL (11.5-15.4); Immature Granulocytes % 0.2 % (0-4); Lymphocytes # 1.5 K/mcL (0.6-4.6); Lymphocytes % 26.6 %; Mean Corpuscular HGB Conc 32.7 g/dL (31.6-35.5); Mean Corpuscular Hemoglobin 33.2 pg (28.0-33.3); Mean Corpuscular Volume 101.5 fL (83.0-100.0); Mean Platelet Volume 11.2 fL (9.4-12.4); Monocytes # 0.6 K/mcL (0.0-1.3); Neutrophils # 3.5 K/mcL (1.6-8.9); Platelet Count 103 K/mcL (140-400); Red Blood Count 3.25 M/mcL (3.82-4.97); Red Cell Distribution Width 13.1 % (11.5-14.5); Segmented Neutrophils % 61.9 %
[2018-06-25 05:39] LABS: BUN/Creatinine Ratio 22 (6-26); Blood Urea Nitrogen 22 mg/dL (8-23); Calcium 8.5 mg/dL (8.6-10.3); Carbon Dioxide 21 mEq/L (23-29); Chloride 112 mEq/L (98-107); Glucose 111 mg/dL (70-105); Osmolality,Calculated 294 (280-300); Potassium 3.9 mEq/L (3.5-5.1); Sodium 140 mEq/L (136-145); eGFR For Non-African Americans 56 (> 60)
[2018-06-25] MEDS: Apixaban 5 MG TABLET PO SCH ×2 (08:02→20:04)
[2018-06-25] MEDS: predniSONE 10 MG TABLET PO SCH (08:02)
[2018-06-25] MEDS: ARMODAFINIL 200 MG PO SCH (08:12)
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
--- NOTE | 2018-06-25 11:13 | Psychiatry Progress Note ---
Date of Encounter: 06/25/18 Time of Encounter: 11:10 Subjective Interval history: Client alert and oriented today. Sensorium seems clear. Pleasant. Denies SI, intent, or plan. Denies any history of SI or attempts. Denies any mental health issues. No longer feels confused. Wants to go home. Denies needing anything from mental health services. Review of Systems Constitutional: Denies: fever, chills, weakness, weight change Eyes: Denies: eye pain, vision change Ears, Nose, Throat: Denies: ear pain, throat pain, dental pain, hearing loss, congestion Cardiovascular: Denies: chest pain, palpitations, dyspnea on exertion Respiratory: Denies: cough, dyspnea, wheezes Gastrointestinal: Denies: abdominal pain, nausea, vomiting, diarrhea, constipation Musculoskeletal: Denies: joint swelling, joint pain Neurological: Denies: headache, weakness, numbness, memory loss Results - Vital Signs Vital Signs: Temp Pulse Resp BP Pulse Ox 98.3 F 64 16 121/84 95 06/25/18 10:44 06/25/18 10:44 06/25/18 10:44 06/25/18 10:44 06/25/18 10:44 - Labs Labs: Laboratory Results - last 24 hr 06/23/18 06/25/18 06/25/18 05:57 04:40 04:40 WBC 5.7 RBC 3.25 L Hgb 10.8 L Hct 33.0 L MCV 101.5 H MCH 33.2 MCHC 32.7 RDW 13.1 Plt Count 103 L MPV 11.2 Immature Gran % 0.2 Seg Neutrophils % 61.9 Lymphocytes % 26.6 Monocytes % 10.0 Eosinophils % 0.9 Basophils % 0.4 Neutrophils # 3.5 Lymphocytes # 1.5 Monocytes # 0.6 Eosinophils # 0.1 Basophils # 0.0 Sodium 140 Potassium 3.9 Chloride 112 H Carbon Dioxide 21 L BUN 22 Creatinine 0.98 Est GFR ( Amer) > 60 Est GFR (Non-Af Amer) 56 L BUN/Creatinine Ratio 22 Glucose 111 H POC Glucose 92 Calculated Osmolality 294 Calcium 8.5 L - Impressions ITS Impressions Cervical Spine CT 06/23/18 05:54 IMPRESSION: No acute fracture of the cervical spine. Anterior fusion C3-C5. Moderate degenerative changes. Stable. D/ / Fritz Garrett MD / Fritz Garrett MD Interpreting Provider: Fritz Garrett MD Head CT 06/23/18 05:54 IMPRESSION: No acute intracranial abnormality. D/ / 06/23/2018 08:41:51 Dell Joy MD / [facility] Interpreting Provider: Dell Joy MD Chest X-Ray 06/23/18 05:55 IMPRESSION: No acute disease. D/ / Scooter Butler MD / Scooter Butler MD Interpreting Provider: Scooter Butler MD Foot X-Ray 06/24/18 14:40 IMPRESSION: No acute abnormality identified. 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 Correlate with any history of chronic pain. Consider performing oblique radiograph of the foot (only an AP and lateral performed today), which may yield more information. D/ / Brian Mera MD / Brian Mera MD Interpreting Provider: Brian Mera MD Assessment and Plan (1) Altered mental status Current visit: Yes Status: Acute Additional Plan: No longer appears confused. No evidence of a major mood disturbance or thought disorder. Suspect presentation related to all the sedating meds she takes at home. Recommend discontinuing or weaning home doses of some of her more sedating meds. Client does not appear to need anything from mental health services at this time. Will sign off. Qualifiers: Altered mental status type: transient alteration of awareness Qualified Code(s): R40.4 - Transient alteration of awareness Consult Discharge Plan - Plan Referrals: Addy Fraire MD [Primary Care Provider] - Psychiatry Exam - Constitutional Vitals: Temp Pulse Resp BP Pulse Ox 98.3 F 64 16 121/84 95 06/25/18 10:44 06/25/18 10:44 06/25/18 10:44 06/25/18 10:44 06/25/18 10:44 General appearance: obese - Musculoskeletal Gait: other Station: relaxed Strength & Tone: normal for patient - Psychiatric Patient Orientation: Yes Person, Yes Time, Yes Place Level of alertness: Alert Behavior: calm, cooperative Psychomotor activity: Normal Eye Contact: Maintains Eye Contact Mood Description: Euthymic/stable Affect description: congruent with mood Speech Volume: Normal Speech pattern: normal rate, normal rhythm, normal tone, fluent, spontaneous Language & Vocabulary: consistent with education Thought Process: Linear, Goal Oriented Thought Content: No Suicidal ideation, No Homicidal ideation, No Overt delusions Perceptual Disturbances: No Auditory hallucinations, No Visual hallucinations Attention Span Ability: Capable of Focused Attention Memory Description: Immediate Intact, Recent Impaired, Remote Intact Patient Reliability: Reliable Historian Fund of knowledge: Yes abstraction ability Intelligence Estimate: Average Judgment: Limited Insight: Partial
--- NOTE | 2018-06-25 14:37 | Electrocardiograph Report ---
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
[2018-06-25] MEDS: Metoprolol XL (24 HR) Succ 50 MG TAB.ER.24H PO SCH (20:04)
[2018-06-26 07:06] LABS: Basophils % 0.6 %; Eosinophils # 0.1 K/mcL (0.0-0.6); Hemoglobin 11.7 g/dL (11.5-15.4); Immature Granulocytes % 0.2 % (0-4); Lymphocytes # 1.8 K/mcL (0.6-4.6); Lymphocytes % 34.8 %; Mean Corpuscular HGB Conc 32.5 g/dL (31.6-35.5); Mean Corpuscular Hemoglobin 33.1 pg (28.0-33.3); Mean Platelet Volume 11.5 fL (9.4-12.4); Monocytes # 0.5 K/mcL (0.0-1.3); Monocytes % 9.2 %; Neutrophils # 2.8 K/mcL (1.6-8.9); Platelet Count 122 K/mcL (140-400); Red Blood Count 3.53 M/mcL (3.82-4.97); Segmented Neutrophils % 54.2 %
[2018-06-26 07:24] LABS: BUN/Creatinine Ratio 17 (6-26); Blood Urea Nitrogen 16 mg/dL (8-23); Carbon Dioxide 22 mEq/L (23-29); Chloride 111 mEq/L (98-107); Glucose 101 mg/dL (70-105); Osmolality,Calculated 291 (280-300); Potassium 3.8 mEq/L (3.5-5.1); Sodium 140 mEq/L (136-145); eGFR For Non-African Americans 59 (> 60)
[2018-06-26] MEDS: ARMODAFINIL 200 MG PO SCH (07:59)
[2018-06-26] MEDS: predniSONE 10 MG TABLET PO SCH (07:59)
[2018-06-26] MEDS: Apixaban 5 MG TABLET PO SCH ×2 (07:59→20:28)
--- NOTE | 2018-06-26 12:25 | Internal Med Progress Note ---
Hospitalist Progress Note - Encounter Date of Encounter: 06/26/18 Time of Encounter: 12:25 - Subjective Interval History: Patient was seen and examined at bedside currently she is alert and oriented 3 nursing reports that patient reported that he hand bag on the shelf had mice feces in it and she thinks she has micefeces in her eyes ears and rectum. When I spoke with the patient she denies any visual or auditory hallucinations. Deneis any sucidal ideations . She expresses sadness concerning recent of her dog. She states that she has home health and APS follows up with patient at home , she manages her own medications. She lives with her son - Exam Vitals: Temp Pulse Resp BP Pulse Ox 97.9 F 65 15 147/92 96 06/26/18 10:51 06/26/18 10:51 06/26/18 10:51 06/26/18 10:51 06/26/18 10:51 Exam: Gen: Alert, awake, Oriented to time,place and person, Chest: Diminished breath sounds B/L, No wheezing, No crackles, No rales Heart: S1S2+ RRR No murmurs Abd: Soft, NT, BS +, No organomegaly Ext: No edema, pulses are palpable, No calf tenderness, bruise over left great toe - severe tenderness Neuro : No focal neuro deficits Psych: No suicidal ideation, no hallucinations / delusions Skin: No rash. - Assessment and Plan (1) Altered mental status Current Visit: Yes Status: Acute Assessment and Plan: Multi factorial mostly due to polypharmacy as well as metabolic encephalopathy due to dehydration Improving-currently awake and oriented 3 cont holding her narcotic, pain meds and sedatives-given low-dose Percocet for the pain Will give Ativan PRN for withdrawal symptoms / agitation counseled the patient about polypharmacy-social research assistant for discharge planning (2) Acute kidney injury Current Visit: Yes Status: Acute Assessment and Plan: Kaveh with CKD-2 Improving Cr came down to 0.94 Monitor intake and output avoid nephrotoxic medication (3) PAF (paroxysmal atrial fibrillation) Current Visit: No Status: Chronic Assessment and Plan: rate controlled with Metoprolol on Eliquis for anti coag (4) Weakness Current Visit: No Status: Acute Assessment and Plan: PT / OT eval (5) GERD (gastroesophageal reflux disease) Current Visit: No Status: Acute Assessment and Plan: on PPI (6) Adrenal insufficiency due to steroid withdrawal Current Visit: No Status: Suspected Assessment and Plan: cont home med Prednisone (7) At risk for polypharmacy Current Visit: No Status: Acute Assessment and Plan: 1 we will hold baclofen and Tinizidine (8) Hypokalemia Current Visit: Yes Status: Acute Assessment and Plan: improved-continue to monitor and replace as needed (9) Injury of left great toe Current Visit: Yes Status: Acute Assessment and Plan: X ray of Left foot-no acute fracture on Tylenol PRN and low dose percocet for pain - Time Spent with Patient Total time spent is greater than 50% in coordination of care (as documented) at patient's floor/unit and/or counseling patient: Internal Medicine: Result - Labs CBC & Chem 7: 06/26/18 04:38 06/26/18 04:38 Labs: Short CBC 06/26/18 Range/Units 04:38 WBC 5.2 (4.3-11.1) K/mcL Hgb 11.7 (11.5-15.4) g/dL Hct 36.0 (35.3-44.9) % Plt Count 122 L (140-400) K/mcL Neutrophils # 2.8 (1.6-8.9) K/mcL BMP 06/26/18 04:38 Sodium 140 Potassium 3.8 Chloride 111 H Carbon Dioxide 22 L BUN 16 Creatinine 0.94 Glucose 101 Calcium 9.0 - ABG Interpretation ABG results: PT/INR, D-dimer PT 14.4 Seconds (9.4-12.1) H 06/23/18 08:05 Consult Discharge Plan - Plan Referrals: Addy Fraire MD [Primary Care Provider] - (1) Altered mental status Qualifiers: Altered mental status type: transient alteration of awareness Qualified Code(s): R40.4 - Transient alteration of awareness (5) GERD (gastroesophageal reflux disease) Qualifiers: Esophagitis presence: esophagitis presence not specified Qualified Code(s): K21.9 - Gastro-esophageal reflux disease without esophagitis (9) Injury of left great toe Qualifiers: Encounter type: initial encounter Qualified Code(s): S99.922A - Unspecified injury of left foot, initial encounter
[2018-06-26] MEDS: *HR* OxyCODONE/APAP 5/325 TABLET PO PRN (20:28)
[2018-06-26] MEDS: Metoprolol XL (24 HR) Succ 50 MG TAB.ER.24H PO SCH (20:28)
[2018-06-27] MEDS: ARMODAFINIL 200 MG PO SCH (09:17)
[2018-06-27] MEDS: predniSONE 10 MG TABLET PO SCH (09:17)
[2018-06-27] MEDS: Apixaban 5 MG TABLET PO SCH ×2 (09:17→21:40)
--- NOTE | 2018-06-27 12:29 | Psychiatry Progress Note ---
Date of Encounter: 06/27/18 Time of Encounter: 12:00 Subjective Interval history: Patient was seen today in bed. She was oriented 3. She was logical and linear in thought process. She did demonstrate false beliefs with this provider today, stating that her dog had . She explains that, due to her power being out, she threw away food outside. She explains that her dog eat this food and was poisoned by it. When speaking with nursing staff later, they report that she mentioned as last night at the family was spoken to, who reports that the dog is alive and well. When speaking with the patient, she was relieved to hear this, though stating she does not know how it is possible, as the dog "laid outside 3 days and 3 nights." She also reports that this provider that her grandson is in the emergency department right now but does not know why. She was very calm about this thought. It is unknown if he is actually in the emergency department, but due to the fact that she did not know anything about it, there is question that the stories fact. She was questioned about the "mice poop" that she spoke to her medicine provider about. She explained that she eats in bed and had mice excrement in her bed with her, wondering if that caused her sudden illness. Besides the above, patient states that she is "fine." She mentions that she wants to go home. She denies issues with depression, anxiety, sleep, and appetite. She denies side effects to medications. She does mention mild neck pain which is chronic for her. She denies SI, HI, AH, and VH. Review of Systems Musculoskeletal: Reports: other (Chronic mild neck pain) Neurological: Reports: confusion Psychiatric: Reports: confusion. Denies: depression, anxiety, abnormal sleep pattern, suicidal ideation, change in appetite, homicidal ideation, auditory hallucinations, visual hallucinations Results - Vital Signs Vital Signs: Temp Pulse Resp BP Pulse Ox 98.0 F 61 16 146/92 96 06/27/18 10:55 06/27/18 10:55 06/27/18 10:55 06/27/18 10:55 06/27/18 10:55 - Drug Levels and Toxicology Drug Levels and Toxicology: None noted this a.m. - Labs Labs: None noted this a.m. - Impressions ITS Impressions Cervical Spine CT 06/23/18 05:54 IMPRESSION: No acute fracture of the cervical spine. Anterior fusion C3-C5. Moderate degenerative changes. Stable. D/ / Fritz Garrett MD / Fritz Garrett MD Interpreting Provider: Fritz Garrett MD Head CT 06/23/18 05:54 IMPRESSION: No acute intracranial abnormality. D/ / 06/23/2018 08:41:51 Dell Joy MD / lou Interpreting Provider: Dell Joy MD Chest X-Ray 06/23/18 05:55 IMPRESSION: No acute disease. D/ / Scooter Butler MD / Scooter Butler MD Interpreting Provider: Scooter Butler MD Foot X-Ray 06/24/18 14:40 IMPRESSION: No acute abnormality identified. 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 Correlate with any history of chronic pain. Consider performing oblique radiograph of the foot (only an AP and lateral performed today), which may yield more information. D/ / Brian Mera MD / Brian Mera MD Interpreting Provider: Brina Mera MD Assessment and Plan (1) Altered mental status Current visit: Yes Status: Acute Plan: Continue hospitalization, Close observation, Monitor sleep, Monitor appetite Additional Plan: -There appears to be continued confusion present, though improved upon admission. It is unknown the etiology of this confusion at this present time. She may be having mild confusion due to decreased cognitive reserve due to her age, which can be exacerbated upon changing of places, such as going to the hospital. However, with the confusion that she presented with, it is possible and more likely she is still experiencing effects of her presenting altered mental status. -Would recommend temporary addition of quetiapine 12.5 mg by mouth twice a day -Recommend continuing inpatient admission, as patient does appear to have continued confusion -Will continue to monitor Risks, benefits, side effects, alternatives discussed w/pt: Yes Patient agreeable to treatment: Yes Qualifiers: Altered mental status type: transient alteration of awareness Qualified Code(s): R40.4 - Transient alteration of awareness Consult Discharge Plan - Plan Referrals: Addy Fraire MD [Primary Care Provider] - 07/04/18 9:30 am Prescriptions: RX: Melatonin 3 mg PO HS #30 tablet - Attending Attestation I examined this patient and my medical decision-making was reviewed with the Resident Physician. I agree with the documented findings, disposition and treatment plan as described except to the extent set forth below. Psychiatry Exam - Constitutional Vitals: Temp Pulse Resp BP Pulse Ox 98.0 F 61 16 146/92 96 06/27/18 10:55 06/27/18 10:55 06/27/18 10:55 06/27/18 10:55 06/27/18 10:55 General appearance: age & developmentally appropriate, well-groomed, well- nourished, average - Musculoskeletal Gait: other (Not assessed) Station: relaxed Strength & Tone: normal for patient (Grossly) - Psychiatric Patient Orientation: Yes Person, Yes Time, Yes Place, Yes Other (Cannot remember the hair dresser name but could describe his appearance in could identify his name with a multiple-choice offer) Level of alertness: Alert, Follows commands Behavior: calm, cooperative Psychomotor activity: Normal Eye Contact: Maintains Eye Contact Mood Description: Euthymic/stable Patient description of mood: "Fine" Affect description: congruent with mood, full range Speech Volume: Normal Speech pattern: normal rate, normal rhythm, normal tone, fluent, spontaneous, appropriate, clear, coherent Language & Vocabulary: consistent with education Thought Process: Logical, Linear, Goal Oriented Thought Content: No Suicidal ideation, No Homicidal ideation, No Overt delusions Perceptual Disturbances: No Reacting to internal stimuli, No Auditory hallucinations, No Visual hallucinations Attention Span Ability: Capable of Focused Attention, Capable of Sustained Attention Memory Description: Immediate Intact, Recent Impaired (She had some deficits with mild confusion, stating that her dog had when he had not), Remote Intact Patient Reliability: Questionable Historian Fund of knowledge: Yes aware of current events Intelligence Estimate: Average Judgment: Fair Insight: Partial
--- NOTE | 2018-06-27 14:57 | Discharge Summary ---
- NOTES TO OUTPATIENT PROVIDER Notes to Outpatient Provider: f/u with PCP in one week. f/u with psychiatrist in 1-2 weeks. Please cut down on your pain medication and sleepding medicine doses. I did stop your Ambien. Please take Melatonin 3mg HS. For your psychosis we started you on Seroquel 12.5mg PO BID Date of Encounter: 06/28/18 Time of Encounter: 14:55 - Discharge Diagnosis (1) Altered mental status Priority: Primary Status: Acute Qualifiers: Altered mental status type: transient alteration of awareness Qualified Code(s): R40.4 - Transient alteration of awareness (2) Psychosis Priority: Primary Status: Acute Qualifiers: Psychosis type: delusional disorder Qualified Code(s): F22 - Delusional disorders (3) Acute kidney injury Priority: Primary Status: Acute (4) PAF (paroxysmal atrial fibrillation) Priority: Secondary Status: Chronic (5) Weakness Priority: Primary Status: Acute (6) GERD (gastroesophageal reflux disease) Priority: Secondary Status: Acute Qualifiers: Esophagitis presence: esophagitis presence not specified Qualified Code(s): K21.9 - Gastro-esophageal reflux disease without esophagitis (7) Adrenal insufficiency due to steroid withdrawal Priority: Secondary Status: Suspected (8) At risk for polypharmacy Priority: Secondary Status: Acute (9) Hypokalemia Priority: Secondary Status: Acute (10) Injury of left great toe Priority: Secondary Status: Acute Qualifiers: Encounter type: initial encounter Qualified Code(s): S99.922A - Unspecified injury of left foot, initial encounter Hospital course: Ms. Roberts is a 67 y/o F with known past medical history of coronary artery disease, chronic diastolic heart failure, hypertension, hyperlipidemia, GERD, COPD and chronic low back pain who is on multiple pain medication Percocet, baclofen and tizanidine, also takes Armodafinil, Ambien, Mirapex and Effexor pt was brought into ER by family for altered mental status and delirium. She was admitted in the hospital and placed on school bus monitor. She was started on aggressive IV hydration. Also stopped most of her psychiatric and pain medication. Her mentation improved slowly in over next 2 days. However she did have few episodes of psychosis / hallucinations. She was evaluated by psychiatrist who recommended to start her on Seroquel. Pt did well with seroquel. She is more alert, awake and O x 4. She wanted to go home today. I did talk to the pt's family over the ph and answered all her questions. - Time Spent with Patient Total time spent providing and/or coordinating discharge services: - Discharge Medications Prescriptions: New Melatonin 3 mg PO HS #30 tablet Quetiapine Fumarate [Seroquel] 12.5 mg PO BID #30 tablet Continue Albuterol Sulfate [Albuterol Inhaler] 2 puff IH Q4H PRN PRN Reason: Shortness Of Breath Pramipexole [Mirapex] 0.5 mg PO DAILY #30 tablet Nitroglycerin [Nitrostat] 0.4 mg SL Q5M PRN PRN Reason: Chest Pain Oxycodone HCl/Acetaminophen [Percocet 7.5-325 mg Tablet] 1 tab PO TID PRN MDD 3 PRN Reason: Pain Tizanidine HCl 4 mg PO Q8H PRN PRN Reason: Muscle Spasm Metoprolol Succinate [Toprol Xl] 50 mg PO DAILY Pantoprazole Sodium [Protonix] 40 mg PO DAILY Spironolactone [Aldactone] 50 mg PO DAILY Cyanocobalamin (B-12) [Vitamin B12] 1,000 mcg PO DAILY #20 tablet Armodafinil 200 mg PO DAILY Cholecalciferol (D-3) [Vitamin D] 1,000 unit PO DAILY Atorvastatin Calcium [Lipitor] 20 mg PO QPM Furosemide [Lasix] 40 mg PO DAILY Apixaban [Eliquis] 5 mg PO BID #60 tablet Ferrous Sulfate 325 mg PO BID Fluticasone Propionate Nasal [Flonase] 2 spray NS BID Lisinopril [Zestril] 20 mg PO BID predniSONE [PredniSONE] 10 mg PO DAILY Venlafaxine [Effexor] 75 mg PO DAILY Changed Baclofen 10 mg PO TID #0 Discontinued Zolpidem [Ambien] 10 mg PO HS PRN PRN Reason: SLEEP/ ANXIETY Home Medications: Albuterol Sulfate [Albuterol Inhaler] 2 puff IH Q4H PRN 11/04/15 [History] Pramipexole [Mirapex] 0.5 mg PO DAILY #30 tablet 11/12/15 [Rx] Nitroglycerin [Nitrostat] 0.4 mg SL Q5M PRN 03/11/17 [History] Oxycodone HCl/Acetaminophen [Percocet 7.5-325 mg Tablet] 1 tab PO TID PRN MDD 3 03/11/17 [History] Tizanidine HCl 4 mg PO Q8H PRN 04/20/17 [History] Metoprolol Succinate [Toprol Xl] 50 mg PO DAILY 10/01/17 [History] Pantoprazole Sodium [Protonix] 40 mg PO DAILY 10/01/17 [History] Spironolactone [Aldactone] 50 mg PO DAILY 10/01/17 [History] Cyanocobalamin (B-12) [Vitamin B12] 1,000 mcg PO DAILY #20 tablet 10/03/17 [Rx] Armodafinil 200 mg PO DAILY 04/11/18 [History] Cholecalciferol (D-3) [Vitamin D] 1,000 unit PO DAILY 04/11/18 [History] Atorvastatin Calcium [Lipitor] 20 mg PO QPM 05/22/18 [History] Furosemide [Lasix] 40 mg PO DAILY 05/22/18 [History] Apixaban [Eliquis] 5 mg PO BID #60 tablet 05/26/18 [Rx] Ferrous Sulfate 325 mg PO BID 06/24/18 [History] Fluticasone Propionate Nasal [Flonase] 2 spray NS BID 06/24/18 [History] Lisinopril [Zestril] 20 mg PO BID 06/24/18 [History] Venlafaxine [Effexor] 75 mg PO DAILY 06/24/18 [History] predniSONE [PredniSONE] 10 mg PO DAILY 06/24/18 [History] Baclofen 10 mg PO TID #0 06/27/18 [Rx] Melatonin 3 mg PO HS #30 tablet 06/27/18 [Rx] Quetiapine Fumarate [Seroquel] 12.5 mg PO BID #30 tablet 06/28/18 [Rx] Allergies/Adverse Reactions: Allergy/AdvReac Type Severity Reaction Status Date / Time mannitol [From Reclast] Allergy Hives Verified 04/20/17 11:48 zoledronic acid Allergy Hives Verified 04/20/17 11:48 [From Reclast] adhesive tape AdvReac Rash Verified 04/20/17 11:48 aspirin AdvReac Nausea Verified 04/20/17 11:48 cephalexin [From Keflex] AdvReac STOMACH Verified 04/20/17 11:48 UPSET codeine AdvReac Abdominal Verified 04/20/17 11:48 Pain Iodinated Contrast- Oral and AdvReac Hives AND Verified 04/20/17 11:48 IV Dye BREATHING ISSUES Date of admission: 06/23/18 12:11 Primary care physician: Addy Fraire MD Consults: 06/23/18 18:16 Consult to Adult Education Professional [CONS] Routine Reason for SW Consult: pt receives home health services, continuation of care 06/24/18 09:56 Consult to Psychiatry [CONS] Routine Consulting Provider: [facility] [place] Reason consult: Altered mental status Time Notified: 09:56 Call Completed: Yes 06/27/18 09:38 Consult to Psychiatry [CONS] Routine Consulting Provider: [facility] [place] Reason consult: Altered mental status Time Notified: 09:39 Call Completed: Yes - Constitutional Vitals: Temp Pulse Resp BP Pulse Ox 98.0 F 61 16 146/92 96 06/27/18 10:55 06/27/18 10:55 06/27/18 10:55 06/27/18 10:55 06/27/18 10:55 General appearance: Present: A&O X 3, no acute distress, answers questions appropriately Exam: Gen: Alert, awake, Oriented to time,place and person Chest: Diminished breath sounds B/L, No wheezing, No crackles, No rales Heart: S1S2+ RRR No murmurs Abd: Soft, NT, BS +, No organomegaly Ext: No edema, pulses are palpable, No calf tenderness Neuro : Benign findings Psych: No hallucinations, Alert, awake and O x 4. Denied any suicidal ideations Skin: No rash. - Patient Status Disposition: Home Health Service Condition: Good Overall status at discharge: patient is back to baseline - Discharge Instructions Follow Up With: Addy Fraire MD [Primary Care Provider] - 07/04/18 9:30 am - Diet and Activity Activity: increase activity as tolerated Diet: low salt diet
--- NOTE | 2018-06-27 15:03 | Internal Med Progress Note ---
Hospitalist Progress Note - Encounter Date of Encounter: 06/27/18 Time of Encounter: 15:00 - Subjective Interval History: Ms. Roberts is a 67 y/o F with known past medical history of coronary artery disease, chronic diastolic heart failure, hypertension, hyperlipidemia, GERD, COPD and chronic low back pain who is on multiple pain medication Percocet, ba clofen and tizanidine, also taked Armodafinil, Ambien, Mirapex and Effexor pt was brought into ER by family for altered mental status and delirium. She was admitted in the hospital and placed on chief executive officer. She was started on aggressive IV hydration. Also helps most of her psychiatric and pain medication. Today patient is little more alert, awake and O x 4. However she still looks very confused. She denied any CP / SOB. Pt did mention y/d she was seeing rat feces every where in the room. - Exam Vitals: Temp Pulse Resp BP Pulse Ox 98.0 F 61 16 146/92 96 06/27/18 10:55 06/27/18 10:55 06/27/18 10:55 06/27/18 10:55 06/27/18 10:55 Exam: Gen: Alert, awake, Oriented to time,place and person.. Still looks confused Chest: Diminished breath sounds B/L, No wheezing, No crackles, No rales Heart: S1S2+ RRR No murmurs Abd: Soft, NT, BS +, No organomegaly Ext: No edema, pulses are palpable, No calf tenderness, bruise over left great toe - severe tenderness Neuro : No focal neuro deficits, other than confusion Psych: No suicidal ideation,still having hallucinations / delusions Skin: No rash. - Assessment and Plan (1) Altered mental status Current Visit: Yes Status: Acute Assessment and Plan: Multi factorial mostly due to polypharmacy as well as metabolic encephalopathy due to dehydrat ion Also concerning from underline psychiatric problem cont holding most of pain meds cont Percocet 5/325 and Ativan PRN Pt was re evaluated psychiatric who recommended to start her on seroquel today continue close monitoring (2) Acute kidney injury Current Visit: Yes Status: Acute Assessment and Plan: ADE with CKD-2 Improved avoid nephrotoxic medication (3) PAF (paroxysmal atrial fibrillation) Current Visit: No Status: Chronic Assessment and Plan: rate controlled with Metoprolol on Eliquis for anti coag (4) Weakness Current Visit: No Status: Acute Assessment and Plan: PT / OT eval (5) GERD (gastroesophageal reflux disease) Current Visit: No Status: Acute Assessment and Plan: on PPI (6) Adrenal insufficiency due to steroid withdrawal Current Visit: No Status: Suspected Assessment and Plan: cont home med Prednisone (7) At risk for polypharmacy Current Visit: No Status: Acute Assessment and Plan: cont holding baclofen and Tizanidine (8) Hypokalemia Current Visit: Yes Status: Acute Assessment and Plan: improved-continue to monitor and replace as needed (9) Injury of left great toe Current Visit: Yes Status: Acute Assessment and Plan: X ray of Left foot-no acute fracture on Tylenol PRN and low dose percocet for pain - Time Spent with Patient Total time spent is greater than 50% in coordination of care (as documented) at patient's floor/unit and/or counseling patient: Internal Medicine: Result - Labs CBC & Chem 7: 06/26/18 04:38 06/26/18 04:38 - ABG Interpretation ABG results: PT/INR, D-dimer PT 14.4 Seconds (9.4-12.1) H 06/23/18 08:05 Consult Discharge Plan - Plan Referrals: Addy Fraire MD [Primary Care Provider] - 07/04/18 9:30 am Prescriptions: Melatonin 3 mg PO HS #30 tablet (1) Altered mental status Qualifiers: Altered mental status type: transient alteration of awareness Qualified Code(s): R40.4 - Transient alteration of awareness (5) GERD (gastroesophageal reflux disease) Qualifiers: Esophagitis presence: esophagitis presence not specified Qualified Code(s): K21.9 - Gastro-esophageal reflux disease without esophagitis (9) Injury of left great toe Qualifiers: Encounter type: initial encounter Qualified Code(s): S99.922A - Unspecified injury of left foot, initial encounter
[2018-06-27] MEDS: Metoprolol XL (24 HR) Succ 50 MG TAB.ER.24H PO SCH (21:40)
[2018-06-27] MEDS: *HR* OxyCODONE/APAP 5/325 TABLET PO PRN (22:59)
[2018-06-28] MEDS: ARMODAFINIL 200 MG PO SCH (09:32)
[2018-06-28] MEDS: Apixaban 5 MG TABLET PO SCH (09:32)
[2018-06-28] MEDS: predniSONE 10 MG TABLET PO SCH (09:35)
[2018-06-28 10:57] VITALS: BP 99/65
--- NOTE | 2018-06-28 15:19 | Physician Discharge Referral ---
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 For more information, call the [place] Tobacco Quit Line at 2-569-DUKQ-NOW. - Services Needed Following services are medically necessary services: Nursing, Home Health Aide, Physical Therapy, Occupational Therapy - Transfer Medications Prescriptions: Melatonin 3 mg PO HS #30 tablet Quetiapine Fumarate [Seroquel] 12.5 mg PO BID #30 tablet Home Medications: Albuterol Sulfate [Albuterol Inhaler] 2 puff IH Q4H PRN 11/04/15 [History] Pramipexole [Mirapex] 0.5 mg PO DAILY #30 tablet 11/12/15 [Rx] Nitroglycerin [Nitrostat] 0.4 mg SL Q5M PRN 03/11/17 [History] Oxycodone HCl/Acetaminophen [Percocet 7.5-325 mg Tablet] 1 tab PO TID PRN MDD 3 03/11/17 [History] Tizanidine HCl 4 mg PO Q8H PRN 04/20/17 [History] Metoprolol Succinate [Toprol Xl] 50 mg PO DAILY 10/01/17 [History] Pantoprazole Sodium [Protonix] 40 mg PO DAILY 10/01/17 [History] Spironolactone [Aldactone] 50 mg PO DAILY 10/01/17 [History] Cyanocobalamin (B-12) [Vitamin B12] 1,000 mcg PO DAILY #20 tablet 10/03/17 [Rx] Armodafinil 200 mg PO DAILY 04/11/18 [History] Cholecalciferol (D-3) [Vitamin D] 1,000 unit PO DAILY 04/11/18 [History] Atorvastatin Calcium [Lipitor] 20 mg PO QPM 05/22/18 [History] Furosemide [Lasix] 40 mg PO DAILY 05/22/18 [History] Apixaban [Eliquis] 5 mg PO BID #60 tablet 05/26/18 [Rx] Ferrous Sulfate 325 mg PO BID 06/24/18 [History] Fluticasone Propionate Nasal [Flonase] 2 spray NS BID 06/24/18 [History] Lisinopril [Zestril] 20 mg PO BID 06/24/18 [History] Venlafaxine [Effexor] 75 mg PO DAILY 06/24/18 [History] predniSONE [PredniSONE] 10 mg PO DAILY 06/24/18 [History] Baclofen 10 mg PO TID #0 06/27/18 [Rx] Melatonin 3 mg PO HS #30 tablet 06/27/18 [Rx] Quetiapine Fumarate [Seroquel] 12.5 mg PO BID #30 tablet 06/28/18 [Rx] Allergies/Adverse Reactions: Allergy/AdvReac Type Severity Reaction Status Date / Time mannitol [From Reclast] Allergy Hives Verified 04/20/17 11:48 zoledronic acid Allergy Hives Verified 04/20/17 11:48 [From Reclast] adhesive tape AdvReac Rash Verified 04/20/17 11:48 aspirin AdvReac Nausea Verified 04/20/17 11:48 cephalexin [From Keflex] AdvReac STOMACH Verified 04/20/17 11:48 UPSET codeine AdvReac Abdominal Verified 04/20/17 11:48 Pain Iodinated Contrast- Oral and AdvReac Hives AND Verified 04/20/17 11:48 IV Dye BREATHING ISSUES Certification: Further, I certify that my clinical findings support that this patient is homebound (i.e. absences from home require considerable and taxing effort and are for medical reasons or mu-ism services or infrequently or short duration when for other reasons) because: Homebound Reason: Patient requires assistance of a person or device to safely leave home Attestation: My signature below is to certify that this patient is under my care and that I, or nurse practitioner, or a physician's production assistant working with me, has a [id number] encounter with this patient.
--- NOTE | 2018-06-28 15:56 | Psychiatry Progress Note ---
Date of Encounter: 06/28/18 Time of Encounter: 11:15 Subjective Interval history: Patient was seen today in her room sleeping. She is easily arousable to verbal stimuli. Patient did not appear confused this a.m. She no longer thinks that her dog is . She does admit that she did not think that, but reports that she is safe and sound with her family. She is also able to tell this provider that her grandson actually went to the urgent care yesterday and went to the emergency department about last week for a stomach virus. She denies specific issues with depression, anxiety, and appetite. She does admit to poor sleep due to the ambient sounds of the hospital. She denies pain and side effects to medication. She denies HI, SI, and AVH. Review of Systems Musculoskeletal: Denies: back pain, joint swelling, joint pain, myalgia Psychiatric: Reports: abnormal sleep pattern (Due to ambient sounds in the hospital). Denies: depression, anxiety, suicidal ideation, change in appetite, homicidal ideation, auditory hallucinations, visual hallucinations, confusion Results - Vital Signs Vital Signs: Temp Pulse Resp BP Pulse Ox 98.0 F 70 16 99/65 97 06/28/18 10:43 06/28/18 10:43 06/28/18 10:43 06/28/18 10:43 06/28/18 10:43 - Drug Levels and Toxicology Drug Levels and Toxicology: None noted this a.m. - Labs Labs: None noted this a.m. - Impressions ITS Impressions Cervical Spine CT 06/23/18 05:54 IMPRESSION: No acute fracture of the cervical spine. Anterior fusion C3-C5. Moderate degenerative changes. Stable. D/ / Fritz Garrett MD / Fritz Garrett MD Interpreting Provider: Fritz Garrett MD Head CT 06/23/18 05:54 IMPRESSION: No acute intracranial abnormality. D/ / 06/23/2018 08:41:51 Dell Joy MD / lou Interpreting Provider: Dell Joy MD Chest X-Ray 06/23/18 05:55 IMPRESSION: No acute disease. D/ / Scooter Butler MD / Scooter Butler MD Interpreting Provider: Scooter Butler MD Foot X-Ray 06/24/18 14:40 IMPRESSION: No acute abnormality identified. 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 Correlate with any history of chronic pain. Consider performing oblique radiograph of the foot (only an AP and lateral performed today), which may yield more information. D/ / Brian Mera MD / Brian Mera MD Interpreting Provider: Brian Mera MD Assessment and Plan (1) Altered mental status Current visit: Yes Status: Acute Plan: Monitor sleep, Monitor appetite Additional Plan: -Patient mental status changes appear resolved. Patient does not appear to be confused this a.m. Yesterday, patient we will was mildly confused but altered mental status overall appears improved. Patient has sufficient help at home, with her grandson assisting. Due to improved confusion and appearance of baseline, patient does not seem to need a [facility] psych unit at this time and appears to be free to go home. -Recommend continuing quetiapine 12.5 mg by mouth twice a day. Recommend reevaluation from outpatient primary care if this medication is needed when patient follows up. -Recommend restarting venlafaxine 75 mg by mouth daily for mood -Recommend holding zolpidem at this time due to sedative effects -Recommend education to family that if patient is having further confusion or is not able to take care of herself that she should be brought back to the hospital for further assessment stabilization -Will sign off at this time. Please us if you have any other issues. Thank you for the consult. Risks, benefits, side effects, alternatives discussed w/pt: Yes Patient agreeable to treatment: Yes Qualifiers: Altered mental status type: transient alteration of awareness Qualified Code(s): R40.4 - Transient alteration of awareness Consult Discharge Plan - Plan Referrals: Addy Fraire MD [Primary Care Provider] - 07/04/18 9:30 am Prescriptions: Melatonin 3 mg PO HS #30 tablet Quetiapine Fumarate [Seroquel] 12.5 mg PO BID #30 tablet Psychiatry Exam - Constitutional Vitals: Temp Pulse Resp BP Pulse Ox 98.0 F 70 16 99/65 97 06/28/18 10:43 06/28/18 10:43 06/28/18 10:43 06/28/18 10:43 06/28/18 10:43 General appearance: age & developmentally appropriate, well-groomed, well- nourished, average - Musculoskeletal Gait: other (Not assessed) Station: relaxed Strength & Tone: normal for patient (Grossly) - Psychiatric Patient Orientation: Yes Person, Yes Time, Yes Place, Yes Circumstance Level of alertness: Alert, Follows commands Behavior: calm, cooperative Psychomotor activity: Normal Eye Contact: Maintains Eye Contact Mood Description: Euthymic/stable Patient description of mood: "Fine" Affect description: congruent with mood, full range Speech Volume: Normal Speech pattern: normal rate, normal rhythm, normal tone, fluent, spontaneous, appropriate, coherent Language & Vocabulary: consistent with education Thought Process: Logical, Linear, Goal Oriented Thought Content: No Suicidal ideation, No Homicidal ideation, No Overt delusions Perceptual Disturbances: No Reacting to internal stimuli, No Auditory hallucinations, No Visual hallucinations Attention Span Ability: Capable of Focused Attention Memory Description: Grossly Intact Patient Reliability: Reliable Historian Fund of knowledge: Yes abstraction ability, Yes aware of current events Intelligence Estimate: Average Judgment: Good Insight: Full
== END 2018-06-28 18:05 | disposition home health service (06) | DRG 640 ==
LOC: EMEROOARM 05:50 → 3BNU 05:50 → SUATTDRO 12:11
PROVIDERS: ADMIT Internal Medicine; ATTEND Family Medicine

== ENCOUNTER 2018-07-12 00:32 | Observation (INO) ==
[2018-07-12 01:17] LABS: Basophils # 0.1 K/mcL (0.0-0.2); Basophils % 0.6 %; Eosinophils % 0.4 %; Hematocrit 41.7 % (35.3-44.9); Hemoglobin 13.4 g/dL (11.5-15.4); Immature Granulocytes % 0.3 % (0-4); Lymphocytes # 0.9 K/mcL (0.6-4.6); Lymphocytes % 11.3 %; Mean Corpuscular HGB Conc 32.1 g/dL (31.6-35.5); Mean Corpuscular Hemoglobin 33.8 pg (28.0-33.3); Mean Platelet Volume 10.4 fL (9.4-12.4); Monocytes # 0.5 K/mcL (0.0-1.3); Monocytes % 6.4 %; Neutrophils # 6.5 K/mcL (1.6-8.9); Platelet Count 157 K/mcL (140-400); Red Blood Count 3.97 M/mcL (3.82-4.97); Red Cell Distribution Width 14.3 % (11.5-14.5)
[2018-07-12 01:39] LABS: Alanine Aminotransferase 18 Units/L (7-52); Albumin 4.4 g/dL (3.5-5.7); Albumin/Globulin Ratio 1.6 (1.1-2.2); Alkaline Phosphatase 78 Units/L (34-104); Aspartate Amino Transferase 25 Units/L (13-39); BUN/Creatinine Ratio 25 (6-26); Bilirubin,Total 0.7 mg/dL (0.3-1.0); Blood Urea Nitrogen 52 mg/dL (8-23); Calcium 9.8 mg/dL (8.6-10.3); Carbon Dioxide 24 mEq/L (23-29); Chloride 106 mEq/L (98-107); Globulin 2.7 g/dL (2.4-3.5); Glucose 105 mg/dL (70-105); Lipase 17 Units/L (11-82); Osmolality,Calculated 308 (280-300); Potassium 4.9 mEq/L (3.5-5.1); Sodium 142 mEq/L (136-145); Total Protein 7.1 g/dL (6.4-8.9); Troponin I < 0.03 ng/mL (< 0.04); eGFR For Non-African Americans 23 (> 60)
[2018-07-12] MEDS ORDERED: 0.9 % Sodium Chloride 1,000 ML IVC ONE (01:51)
[2018-07-12 01:59] LABS: Bilirubin,Urine Negative (Negative); Blood,Urine Negative (Negative); Clarity,Urine Clear (Clear); Color,Urine Yellow (Yellow); Glucose,Urine (UA) Normal (Normal); Ketones,Urine Negative (Negative); Leukocyte Esterase,Urine Small (Negative); Nitrite,Urine Negative (Negative); Protein,Urine Negative (Neg-Trace); Urobilinogen,Urine Normal (Normal)
[2018-07-12 02:00] LABS: Bacteria,Urine None Seen per hpf (None-Few); Hyaline Casts,Urine None Seen per lpf (None-Few); RBC,Urine 0-3 per hpf (0-3); Squamous Epithelial Cell,Urine Moderate per lpf (None-Few)
[2018-07-12 02:10] LABS: Amphetamine Screen,Urine Negative ng/mL (Cutoff=1000); Barbiturate Screen,Urine Negative ng/mL (Cutoff=200); Benzodiazepines Screen,Urine Negative ng/mL (Cutoff=200); Cannabinoid Screen,Urine Negative ng/mL (Cutoff = 50); Cocaine Screen,Urine Negative ng/mL (Cutoff= 300); Opiate Screen,Urine Negative ng/mL (Cutoff=300); Phencyclidine Screen,Urine Negative ng/mL (Cutoff=25)
--- NOTE | 2018-07-12 02:19 | Emergency Department Note ---
Overdose - [facility] Narrative Medical decision making narrative: Patient presented to the emergency department she was mildly responsive to pain. Pupils were pinpoint. This did seem to be like an opiate overdose we did give patient 2 mg of intranasal Narcan. She did not respond at that time we then got IV give 2 mg of IV Narcan patient responded. At that time she was able answer questions states that she did not take any of her medication that she knows of. Says she last took a hydrocodone at 2 PM. She says that her medications are locked up there is no chance that she took an extra. Patient does have history of nephrectomy. Otherwise is been no other complaints or symptoms leading up to this. Labs came back showing a uremia. Patient did seem to be dehydrated. There is a new elevated creatinine and due to patient having an nephrectomy and only one kidney we will go ahead and admit the patient for further evaluation. Did give patient 1 L of IV fluids. Urine drug screen was negative. All other labs were normal. This could be secondary to having poor kidney function and the renal clearance of the opiate was delayed causing the overdose. Patient was found at home she never did fall and hit her head there is very low likelihood of there being any intracranial abnormality so CT head was not done. Spoke with Dr. Correa who agreed to admit the patient to their service. Patient is admitted in stable condition. Chest X-Ray 07/12/18 00:50 IMPRESSION: No acute cardiopulmonary findings on this exam limited by shallow inspiratory effort. Hiatus hernia. D/ / Dontae Vanessa / Dontae Vanessa Interpreting Provider: Dontae Vanessa - Medical Records Medical records reviewed: Yes I reviewed the patient's medical records. - Lab Data Lab results reviewed: Yes I reviewed the patient's lab results. Result diagrams: 07/12/18 01:01 07/12/18 01:01 Lab Results 07/12/18 07/12/18 07/12/18 Range/Units 00:59 01:01 01:01 WBC 8.0 (4.3-11.1) K/mcL RBC 3.97 (3.82-4.97) M/mcL Hgb 13.4 (11.5-15.4) g/dL Hct 41.7 (35.3-44.9) % MCV 105.0 H (83.0-100.0) fL MCH 33.8 H (28.0-33.3) pg MCHC 32.1 (31.6-35.5) g/dL RDW 14.3 (11.5-14.5) % Plt Count 157 (140-400) K/mcL MPV 10.4 (9.4-12.4) fL Immature Gran % 0.3 (0-4) % Seg Neutrophils % 81.0 % Lymphocytes % 11.3 % Monocytes % 6.4 % Eosinophils % 0.4 % Basophils % 0.6 % Neutrophils # 6.5 (1.6-8.9) K/mcL Lymphocytes # 0.9 (0.6-4.6) K/mcL Monocytes # 0.5 (0.0-1.3) K/mcL Eosinophils # 0.0 (0.0-0.6) K/mcL Basophils # 0.1 (0.0-0.2) K/mcL Sodium 142 (136-145) mEq/L Potassium 4.9 (3.5-5.1) mEq/L Chloride 106 (98-107) mEq/L Carbon Dioxide 24 (23-29) mEq/L BUN 52 H (8-23) mg/dL Creatinine 2.10 H (0.60-1.20) mg/dL Est GFR ( Amer) 28 L (> 60) Est GFR (Non-Af Amer) 23 L (> 60) BUN/Creatinine Ratio 25 (6-26) Glucose 105 (70-105) mg/dL Calculated Osmolality 308 H (280-300) Lactic Acid 1.0 (0.5-2.2) mmol/L Calcium 9.8 (8.6-10.3) mg/dL Total Bilirubin 0.7 (0.3-1.0) mg/dL AST 25 (13-39) Units/L ALT 18 (7-52) Units/L Alkaline Phosphatase 78 (34-104) Units/L Troponin I < 0.03 (< 0.04) ng/mL Serum Total Protein 7.1 (6.4-8.9) g/dL Albumin 4.4 (3.5-5.7) g/dL Globulin 2.7 (2.4-3.5) g/dL Albumin/Globulin Ratio 1.6 (1.1-2.2) Lipase 17 (11-82) Units/L Urine Color (Yellow) Urine Clarity (Clear) Urine pH (5.0-8.0) pH Units Ur Specific [place] (1.010-1.025) Urine Protein (Neg-Trace) mg/dL Urine Glucose (UA) (Normal) mg/dL Urine Ketones (Negative) mg/dL Urine Blood (Negative) Urine Nitrite (Negative) Urine Bilirubin (Negative) Urine Urobilinogen (Normal) mg/dL Ur Leukocyte Esterase (Negative) Urine Microscopic RBC (0-3) per hpf Urine Microscopic WBC (0-3) per hpf Ur Squamous Epith Cells (None-Few) per lpf Urine Bacteria (None-Few) per hpf Hyaline Casts (None-Few) per lpf Ur Culture Indicated? (NO) Urine Opiates Screen (Fufezp=763) ng/mL Ur Barbiturates Screen (Xhgdnq=713) ng/mL Ur Phencyclidine Scrn (Cutoff=25) ng/mL Ur Amphetamines Screen (Fnmwpb=4723) ng/mL U Benzodiazepines Scrn (Mddioh=898) ng/mL Urine Cocaine Screen (Cutoff= 300) ng/mL U Marijuana (THC) Screen (Cutoff = 50) ng/mL Ur Drug Screen Interp 07/12/18 07/12/18 Range/Units 01:47 01:47 WBC (4.3-11.1) K/mcL RBC (3.82-4.97) M/mcL Hgb (11.5-15.4) g/dL Hct (35.3-44.9) % MCV (83.0-100.0) fL MCH (28.0-33.3) pg MCHC (31.6-35.5) g/dL RDW (11.5-14.5) % Plt Count (140-400) K/mcL MPV (9.4-12.4) fL Immature Gran % (0-4) % Seg Neutrophils % % Lymphocytes % % Monocytes % % Eosinophils % % Basophils % % Neutrophils # (1.6-8.9) K/mcL Lymphocytes # (0.6-4.6) K/mcL Monocytes # (0.0-1.3) K/mcL Eosinophils # (0.0-0.6) K/mcL Basophils # (0.0-0.2) K/mcL Sodium (136-145) mEq/L Potassium (3.5-5.1) mEq/L Chloride (98-107) mEq/L Carbon Dioxide (23-29) mEq/L BUN (8-23) mg/dL Creatinine (0.60-1.20) mg/dL Est GFR ( Amer) (> 60) Est GFR (Non-Af Amer) (> 60) BUN/Creatinine Ratio (6-26) Glucose (70-105) mg/dL Calculated Osmolality (280-300) Lactic Acid (0.5-2.2) mmol/L Calcium (8.6-10.3) mg/dL Total Bilirubin (0.3-1.0) mg/dL AST (13-39) Units/L ALT (7-52) Units/L Alkaline Phosphatase (34-104) Units/L Troponin I (< 0.04) ng/mL Serum Total Protein (6.4-8.9) g/dL Albumin (3.5-5.7) g/dL Globulin (2.4-3.5) g/dL Albumin/Globulin Ratio (1.1-2.2) Lipase (11-82) Units/L Urine Color Yellow (Yellow) Urine Clarity Clear (Clear) Urine pH 6.0 (5.0-8.0) pH Units Ur Specific [place] 1.010 (1.010-1.025) Urine Protein Negative (Neg-Trace) mg/dL Urine Glucose (UA) Normal (Normal) mg/dL Urine Ketones Negative (Negative) mg/dL Urine Blood Negative (Negative) Urine Nitrite Negative (Negative) Urine Bilirubin Negative (Negative) Urine Urobilinogen Normal (Normal) mg/dL Ur Leukocyte Esterase Small H (Negative) Urine Microscopic RBC 0-3 (0-3) per hpf Urine Microscopic WBC 5-15 H (0-3) per hpf Ur Squamous Epith Cells Moderate H (None-Few) per lpf Urine Bacteria None Seen (None-Few) per hpf Hyaline Casts None Seen (None-Few) per lpf Ur Culture Indicated? YES A (NO) Urine Opiates Screen Negative (Lxxbhy=840) ng/mL Ur Barbiturates Screen Negative (Oqohfn=783) ng/mL Ur Phencyclidine Scrn Negative (Cutoff=25) ng/mL Ur Amphetamines Screen Negative (Hqahgx=2449) ng/mL U Benzodiazepines Scrn Negative (Hebhue=908) ng/mL Urine Cocaine Screen Negative (Cutoff= 300) ng/mL U Marijuana (THC) Screen Negative (Cutoff = 50) ng/mL Ur Drug Screen Interp See Below - Radiology Data Radiology results reviewed: Yes I reviewed the patient's radiology results. - EKG Data EKG attestation: Yes I reviewed and interpreted this EKG. Overdose HPI - General Chief Complaint: ED Overdose Stated Complaint: Possible OD Time Seen by Provider: 07/12/18 00:50 Source: EMS Mode of arrival: ambulatory Limitations: other Nursing Notes Reviewed: Yes Vital Signs Reviewed: Yes - History of Present Illness HPI Narrative: 59-year-old female presents to the emergency department with altered mental status as well as hypoxia. According to EMS patient was hypoxic in the 70s placed on nonrebreather when up to the 90s. They said that she also was un responsive family states this has happened in the past with her not sure why. Patient does have history of taking pain medications but they do not believe that she could have taken any extra. It is difficult to get history from patient as she was altered and unable to wake up on sternal rub. Further history was difficult to get at this time. - Related Data Home Medications Medication Instructions Recorded Confirmed RX: Albuterol Sulfate [Albuterol 2 puff IH Q4H PRN 11/04/15 06/24/18 Inhaler] RX: Nitroglycerin [Nitrostat] 0.4 mg SL Q5M PRN 03/11/17 06/24/18 RX: Oxycodone HCl/Acetaminophen 1 tab PO TID PRN MDD 3 03/11/17 06/24/18 [Percocet 7.5-325 mg Tablet] RX: Tizanidine HCl 4 mg PO Q8H PRN 04/20/17 06/24/18 RX: Metoprolol Succinate [Toprol 50 mg PO DAILY 10/01/17 06/24/18 Xl] RX: Pantoprazole Sodium [Protonix] 40 mg PO DAILY 10/01/17 06/24/18 RX: Spironolactone [Aldactone] 50 mg PO DAILY 10/01/17 06/24/18 RX: Armodafinil 200 mg PO DAILY 04/11/18 06/24/18 RX: Cholecalciferol (D-3) [Vitamin 1,000 unit PO DAILY 04/11/18 05/22/18 D] RX: Atorvastatin Calcium [Lipitor] 20 mg PO QPM 05/22/18 06/24/18 RX: Furosemide [Lasix] 40 mg PO DAILY 05/22/18 06/24/18 RX: Ferrous Sulfate 325 mg PO BID 06/24/18 06/24/18 RX: Fluticasone Propionate Nasal 2 spray NS BID 06/24/18 06/24/18 [Flonase] RX: Lisinopril [Zestril] 20 mg PO BID 06/24/18 06/24/18 RX: Venlafaxine [Effexor] 75 mg PO DAILY 06/24/18 06/24/18 RX: predniSONE [PredniSONE] 10 mg PO DAILY 06/24/18 06/24/18 Previous Rx's Medication Instructions Recorded RX: Pramipexole [Mirapex] 0.5 mg PO DAILY #30 tablet 11/12/15 RX: Cyanocobalamin (B-12) [Vitamin 1,000 mcg PO DAILY #20 tablet 10/03/17 B12] RX: Apixaban [Eliquis] 5 mg PO BID #60 tablet 05/26/18 RX: Baclofen 10 mg PO TID #0 06/27/18 RX: Melatonin 3 mg PO HS #30 tablet 06/27/18 RX: Quetiapine Fumarate [Seroquel] 12.5 mg PO BID #30 tablet 06/28/18 Allergies Allergy/AdvReac Type Severity Reaction Status Date / Time mannitol [From Reclast] Allergy Hives Verified 04/20/17 11:48 zoledronic acid Allergy Hives Verified 04/20/17 11:48 [From Reclast] adhesive tape AdvReac Rash Verified 04/20/17 11:48 aspirin AdvReac Nausea Verified 04/20/17 11:48 cephalexin [From Keflex] AdvReac STOMACH Verified 04/20/17 11:48 UPSET codeine AdvReac Abdominal Verified 04/20/17 11:48 Pain Iodinated Contrast- Oral and AdvReac Hives AND Verified 04/20/17 11:48 IV Dye BREATHING ISSUES Limitations: ROS unobtainable due to patients medical condition Past Medical History - Past Medical History Source: old records reviewed Medical history: Reports: arthritis, atrial fibrillation, CHF, COPD, coronary artery disease, DVT, GERD, hyperlipidemia, hypertension, migraine, myocardial infarction, osteoporosis, RA, renal disease, other Surgical history: Reports: appendectomy, colectomy, orthopedic, other, pacemaker/AICD, other Psychiatric history: Reports: no psych history SOUND CONTROLLER history: Reports: no SOUND CONTROLLER history - Social History Smoking Status: Never smoker Smokeless Tobacco Status: No Alcohol use: Reports: none Drug use: Reports: none Physical Exam - General Limitations: other General appearance: in no apparent distress - Head Head exam: atraumatic, normocephalic, normal inspection - Eye Eye exam: Present: normal appearance, PERRL, EOMI - ENT ENT exam: normal exam, normal oropharynx, mucous membranes moist - Neck Neck exam: Present: normal inspection, full ROM, trachea midline - Chest Chest inspection: Present: normal inspection, symmetric chest wall rise - Respiratory Respiratory exam: Present: normal lung sounds bilaterally. Absent: respiratory distress - Cardiovascular Cardiovascular exam: Present: normal rhythm, bradycardia, normal heart sounds - Abdominal Exam Abdominal exam: Present: soft, Non-Tender, normal bowel sounds. Absent: tenderness, distention, guarding, rebound, rigidity - Extremities Exam Extremities exam: Present: normal inspection, full ROM. Absent: tenderness, pedal edema - Back Exam Back exam: Present: normal inspection, full ROM. Absent: tenderness - Expanded Neurological Exam Coma Scale Eye Opening: To Pain Coma Scale Motor Response: Withdraws to Pain Coma Scale Verbal Response: Inappropriate Coma Scale Total: 9 - Skin Skin exam: Present: warm, dry, intact, normal color Course Vital Signs Temperature 96.3 F L 07/12/18 00:33 Pulse Rate 79 07/12/18 00:33 Respiratory Rate 13 07/12/18 00:33 Blood Pressure 107/91 07/12/18 00:33 O2 Sat by Pulse Oximetry 100 07/12/18 00:33 Temperature 96.3 F L 07/12/18 00:33 Pulse Rate 102 07/12/18 02:15 Respiratory Rate 16 07/12/18 02:15 Blood Pressure 98/68 07/12/18 02:15 O2 Sat by Pulse Oximetry 99 07/12/18 02:15 Oxygen Delivery Oxygen Delivery Room Air Critical Care Time Critical Care Time: Yes Total Critical Care Time: 40 Attestation: Acute altered mental status and hypoxia. Acute opiate overdose. acute uremia acute dehydration Disposition Clinical Impression: Uremia, Single kidney Overdose Qualifiers: Encounter type: initial encounter Injury intent: undetermined intent Qualified Code(s): T50.904A - Poisoning by unspecified drugs, medicaments and biological substances, undetermined, initial encounter Disposition: Admitted As Inpatient Condition: Fair Time of Disposition: 02:41 Attestation Statement - Attestation Attestation: DR Carney note: Pt seen in conjunction w/ Resident Dr Celso Farris; please see his charting for complete documentation. I spent [id number] time with the patient and agree with the patient's treatment and disposition. Patient found seated at home with altered mental status and depressed LOC. Patient became alert en route after given Narcan in the ER. History of same. Uremia noted. Hypoxia resolved. Be admitted for further hydration and continue watches her altered mental status was apparently due to an obvious narcotic overdose. Which Patient denies
[2018-07-12] MEDS ORDERED: Naloxone 0.4 MG/ML INJ IVP PRN (04:03)
[2018-07-12] MEDS ORDERED: Pseudoephedrine Oral Soln 30 MG/5 ML UDC PO PRN (04:13)
--- NOTE | 2018-07-12 04:31 | Internal Med History&Physical ---
<Anu Velázquez - Last Filed: 07/12/18 05:53> Date of Encounter: 07/12/18 Time of Encounter: 03:30 Internal Medicine - H&P: HPI Chief complaint: AMS Admitted From: Emergency Dept History of present illness: Ms. Roberts is a 67 year old female with history of Afib, CHF, COPD, CAD/RI, DVT, HTN, HLD, GERD, right nephrectomy. Patient presents for altered mental status. Patient states this evening, she was walking the hallway, when she went blank. States this means she lost consciousness. Patient states it was her MS acting up. Prior to the episode, patient states she was sleeping all day. States this is normal for her MS. Family shakes their heads indicating this is not true. Home nurse reported patient kept falling asleep throughout the day. This evening, she was walking down the hallway when her grandson came home. She did not respond despite him calling after her multiple times. She sat in a chair and became unresponsive. EMS was called. In the ER, she had pinpoint pupils and only mild response to pain. It was suspected to be an opiate overdose and narcan was given. Patient responded to 2nd dose. Patient states she only took one Percocet this afternoon at 2pm. States she only takes one Percocet a day. They report she comes to the hospital once a month for the same issue. And patient will state that it was her MS and a UTI. Family states they were told at previous admission that she does not have MS. Family suspects that she abuses her medications. They state she passes out on the toilet all the time and slurs her speech. She recently got a locked box dispensary that dispenses the correct amount of meds. However, family states that shes a hoarder and suspect that she has secret stashes of meds. Whenever they even touch a pill bottle, she becomes very suspicious of them and confrontational. Whenever shes in the hospital, she asks for her purse, which they suspect contains meds as well. Additionally, family states that patient talks of spiders on her arms, wires coming out of her, strange people living in her home, talks about a boyfriend that doesnt exist, etc. States this has been going on for 9 years and has worsened. Family states that shell answer questions appropriately to the medical staff, but once they leave, onofre start talking like that again. Patient was discharged 2 weeks ago for altered mentation. It was suspected to be secondary to overmedication including Percocet, ambien, baclofen, and tizanidine. Additionally, patient had psych consult for psychosis. Seroquel was started and patient improved. However, family reports that once she got home, p magalie ripped up Seroquel prescription claiming shes not crazy and doesnt need psych meds. Past Med Surg Social Fam HX - Past Medical History Medical history: arthritis, atrial fibrillation, CHF, COPD, coronary artery d isease, DVT, GERD, hyperlipidemia, hypertension, migraine, myocardial infarction, osteoporosis, RA, renal disease, other Additional medical history: MS, narcolepsy, scoliosis, right brain mass, colon polyps Psychiatric history: no psych history - Past Surgical History Surgical History: appendectomy, colectomy, orthopedic, other, pacemaker/AICD, other Additional surgical history: nephrectomy - Social History Smoking Status: Never smoker Smokeless Tobacco Status: No Alcohol use: none Drug use: none - Family History Father Living Status: Hx Family Cardiac Disorders: Yes (Hypertension) Hx Family Respiratory Disorders: No Hx Family Cancer: Yes (Colon cancer) Hx Family GI Disorders: No Hx Family Endocrine Disorder: Yes (Diabetes) Hx Family Neuromuscular Disorders: No Hx Family Neurologic Disorders: No Hx Family HEENT Disorders: No Hx Family Autoimmune Disorders: No Mother Living Status: Hx Family Cardiac Disorders: Yes (Hypertension) Hx Family Cancer: Yes (Breast) Hx Family Endocrine Disorder: Yes (Diabetes) Internal Medicine - H&P: Meds RX: Albuterol Sulfate [Albuterol Inhaler] 2 puff IH Q4H PRN 11/04/15 [History] RX: Pramipexole [Mirapex] 0.5 mg PO DAILY #30 tablet 11/12/15 [Rx] RX: Nitroglycerin [Nitrostat] 0.4 mg SL Q5M PRN 03/11/17 [History] RX: Oxycodone HCl/Acetaminophen [Percocet 7.5-325 mg Tablet] 1 tab PO TID PRN MDD 3 03/11/17 [History] RX: Tizanidine HCl 4 mg PO Q8H PRN 04/20/17 [History] RX: Metoprolol Succinate [Toprol Xl] 50 mg PO DAILY 10/01/17 [History] RX: Pantoprazole Sodium [Protonix] 40 mg PO DAILY 10/01/17 [History] RX: Spironolactone [Aldactone] 50 mg PO DAILY 10/01/17 [History] RX: Cyanocobalamin (B-12) [Vitamin B12] 1,000 mcg PO DAILY #20 tablet 10/03/17 [Rx] RX: Armodafinil 200 mg PO DAILY 04/11/18 [History] RX: Cholecalciferol (D-3) [Vitamin D] 1,000 unit PO DAILY 04/11/18 [History] RX: Atorvastatin Calcium [Lipitor] 20 mg PO QPM 05/22/18 [History] RX: Furosemide [Lasix] 40 mg PO DAILY 05/22/18 [History] RX: Apixaban [Eliquis] 5 mg PO BID #60 tablet 05/26/18 [Rx] RX: Ferrous Sulfate 325 mg PO BID 06/24/18 [History] RX: Fluticasone Propionate Nasal [Flonase] 2 spray NS BID 06/24/18 [History] RX: Lisinopril [Zestril] 20 mg PO BID 06/24/18 [History] RX: Venlafaxine [Effexor] 75 mg PO DAILY 06/24/18 [History] RX: predniSONE [PredniSONE] 10 mg PO DAILY 06/24/18 [History] RX: Baclofen 10 mg PO TID #0 06/27/18 [Rx] RX: Melatonin 3 mg PO HS #30 tablet 06/27/18 [Rx] RX: Quetiapine Fumarate [Seroquel] 12.5 mg PO BID #30 tablet 06/28/18 [Rx] 3 Allergy/AdvReac Type Severity Reaction Status Date / Time mannitol [From Reclast] Allergy Hives Verified 04/20/17 11:48 zoledronic acid Allergy Hives Verified 04/20/17 11:48 [From Reclast] adhesive tape AdvReac Rash Verified 04/20/17 11:48 aspirin AdvReac Nausea Verified 04/20/17 11:48 cephalexin [From Keflex] AdvReac STOMACH Verified 04/20/17 11:48 UPSET codeine AdvReac Abdominal Verified 04/20/17 11:48 Pain Iodinated Contrast- Oral and AdvReac Hives AND Verified 04/20/17 11:48 IV Dye BREATHING ISSUES All Systems PM: A 10-system review of systems was performed and is negative for pertinent findings except as documented above in the HPI. - Constitutional Constitutional: no anorexia - EENT Eyes: no blurry vision Nose, mouth and throat: nasal congestion - Cardiovascular Cardiovascular ROS IM: no chest pain - Respiratory Respiratory: no wheezing - Gastrointestinal Gastrointestinal: no abdominal pain - Genitourinary Genitourinary: no flank pain - Integumentary Integumentary IM: no erythema - Neurological Neurological ROS: no focal weakness - Psychiatric Psychiatric: anxiety - Endocrine Endocrine IM: no cold intolerance - Hematologic/Lymphatic Hematologic/Lymphatic: no easy bleeding - Allergic/Immunologic Allergic/Immunologic: no uticaria - Constitutional Vitals: Temp Pulse Resp BP Pulse Ox 96.3 F L 102 16 114/98 99 07/12/18 00:33 07/12/18 02:15 07/12/18 03:55 07/12/18 03:55 07/12/18 02:15 General appearance: Present: A&O X 3 Exam: no acute distress - Head Head exam: Present: atraumatic, normal inspection, normocephalic - Eye Eye exam: Present: EOMI, normal appearance, PERRL, sclera anicteric - ENT ENT exam: Present: mucous membranes moist, normal oropharynx - Neck Neck exam general surgery: Present: normal inspection, supple - Respiratory Respiratory exam: Present: CTAB. Absent: respiratory distress, tachypnea - Cardiovascular Cardiovascular exam: Present: RRR, +S1, +S2. Absent: systolic murmur, tachycardia - GI/Abdominal GI/Abdominal exam: Present: normal bowel sounds, soft, tenderness (histrionic ex am ), no peritoneal signs - Extremities Exam Extremities exam: Present: normal inspection, warm. Absent: cyanotic, pedal edema, tenderness - Neurological Exam Neurological exam: Present: CN II-XII intact, no focal deficits - Psychiatric Psychiatric exam: Present: anxious Additional comments: emotionally labile - Skin Skin exam: Present: dry, intact, normal color, warm Internal Med - H&P Results - Labs CBC & Chem 7: 07/12/18 01:01 07/12/18 01:01 Labs: Short CBC 07/12/18 Range/Units 01:01 WBC 8.0 (4.3-11.1) K/mcL Hgb 13.4 (11.5-15.4) g/dL Hct 41.7 (35.3-44.9) % Plt Count 157 (140-400) K/mcL Neutrophils # 6.5 (1.6-8.9) K/mcL BMP 07/12/18 01:01 Sodium 142 Potassium 4.9 Chloride 106 Carbon Dioxide 24 BUN 52 H Creatinine 2.10 H Glucose 105 Calcium 9.8 Cardiac Enzymes 07/12/18 Range/Units 01:01 Troponin I < 0.03 (< 0.04) ng/mL Liver Function 07/12/18 Range/Units 01:01 Total Bilirubin 0.7 (0.3-1.0) mg/dL AST 25 (13-39) Units/L ALT 18 (7-52) Units/L Alkaline Phosphatase 78 (34-104) Units/L Albumin 4.4 (3.5-5.7) g/dL Urine 07/12/18 Range/Units 01:47 Urine Color Yellow (Yellow) Urine Clarity Clear (Clear) Urine pH 6.0 (5.0-8.0) pH Units Ur Specific [place] 1.010 (1.010-1.025) Urine Protein Negative (Neg-Trace) mg/dL Urine Glucose (UA) Normal (Normal) mg/dL - Impressions ITS Impressions Chest X-Ray 07/12/18 00:50 IMPRESSION: No acute cardiopulmonary findings on this exam limited by shallow inspiratory effort. Hiatus hernia. D/ / Dontae Vanessa / Dontae Vanessa Interpreting Provider: Dontae Vanessa - Assessment and Plan (1) Altered mental status Current Visit: No Status: Acute Assessment and plan: History of multiple episodes of altered mental status Responsive to Narcan Suspect overmedication on home opiates, muscle relaxers, and sleep meds Urine drug screen was negative Consult Psychiatry Hold opiates, muscle relaxers, sleep medications pending psych eval and med rec Qualifiers: Altered mental status type: transient alteration of awareness Qualified Code(s): R40.4 - Transient alteration of awareness (2) Acute kidney injury Current Visit: No Status: Acute Assessment and plan: History of right nephrectomy Cr of 2.10 A month ago, Cr of 0.94 Likely pre-renal IVF Monitor I&O Trend Cr (3) Psychosis Current Visit: No Status: Acute Assessment and plan: Family reports longstanding history of psychosis 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 Qualifiers: Psychosis type: delusional disorder Qualified Code(s): F22 - Delusional disorders (4) At risk for polypharmacy Current Visit: No Status: Acute (5) Single kidney Current Visit: Yes Status: Chronic Assessment and plan: History of right nephrectomy (6) DVT prophylaxis Current Visit: No Status: Acute Assessment and plan: Heparin SQ - Time Spent With Patient Total time spent is greater than 50% in coordination of care (as documented) at patient's floor/unit and/or counseling patient: Maribel Moran - Last Filed: 07/12/18 06:20> Date of Encounter: 07/12/18 All Systems PM: A 10-system review of systems was performed and is negative for pertinent findings except as documented above in the HPI. - Constitutional Vitals: Temp Pulse Resp BP Pulse Ox 97.5 F L 50 16 94/40 100 07/12/18 04:14 07/12/18 04:14 07/12/18 03:55 07/12/18 04:14 07/12/18 05:05 Internal Med - H&P Results - Labs CBC & Chem 7: 07/12/18 01:01 07/12/18 01:01 Labs: Short CBC 07/12/18 Range/Units 01:01 WBC 8.0 (4.3-11.1) K/mcL Hgb 13.4 (11.5-15.4) g/dL Hct 41.7 (35.3-44.9) % Plt Count 157 (140-400) K/mcL Neutrophils # 6.5 (1.6-8.9) K/mcL BMP 07/12/18 01:01 Sodium 142 Potassium 4.9 Chloride 106 Carbon Dioxide 24 BUN 52 H Creatinine 2.10 H Glucose 105 Calcium 9.8 Cardiac Enzymes 07/12/18 Range/Units 01:01 Troponin I < 0.03 (< 0.04) ng/mL Liver Function 07/12/18 Range/Units 01:01 Total Bilirubin 0.7 (0.3-1.0) mg/dL AST 25 (13-39) Units/L ALT 18 (7-52) Units/L Alkaline Phosphatase 78 (34-104) Units/L Albumin 4.4 (3.5-5.7) g/dL Urine 07/12/18 Range/Units 01:47 Urine Color Yellow (Yellow) Urine Clarity Clear (Clear) Urine pH 6.0 (5.0-8.0) pH Units Ur Specific [place] 1.010 (1.010-1.025) Urine Protein Negative (Neg-Trace) mg/dL Urine Glucose (UA) Normal (Normal) mg/dL - Impressions ITS Impressions Chest X-Ray 07/12/18 00:50 IMPRESSION: No acute cardiopulmonary findings on this exam limited by shallow inspiratory effort. Hiatus hernia. D/ / Dontae Vanessa / Dontae Vanessa Interpreting Provider: Dontae Vanessa - Time Spent With Patient Total time spent is greater than 50% in coordination of care (as documented) at patient's floor/unit and/or counseling patient: - Attending Attestation I performed a history and physical exam of the patient and discussed management with the resident. I reviewed the resident's note and agree with the documented findings and plan of care. 67 year old woman seemingly with underlying psychiatric issues who has transient episodes of altered mentation found unresponsive by family members and awoken when naloxone was given in the ER after observing pinpoint pupils and report of earlier ingestion of hydrocodone. Her UDS however is negative. Polypharmacy might be an issue seeing the plethora of neuroleptics she has been prescribed. Will rehydrate her for acute kidney injury which may have caused inadequate clearance of drug metabolites from her system as she has only 1 kidney and therefore led to this issue. Her behavior is somewhat labile, episodes of crying and notable anxiety, confabulating. She will benefit from psychiatric evaluation. JORY ESTEVES.
[2018-07-12] MEDS: 0.9 % Sodium Chloride 1,000 ML IVC SCH ×2 (04:38→17:12)
[2018-07-12] MEDS: Acetaminophen 325 MG TABLET PO PRN ×2 (05:17→22:30)
[2018-07-12] MEDS: *HR* Heparin 5,000 UNIT/ML VIAL SQ SCH ×2 (05:17→17:12)
[2018-07-12] MEDS: ALPRAZolam 0.5 MG TABLET PO PRN ×2 (06:00→22:30)
--- NOTE | 2018-07-12 10:35 | Consult Note ---
Date of Encounter: 07/12/18 Time of Encounter: 10:30 Assessment & Recommendation (1) Altered mental status Current visit: No Status: Acute Assessment & Recommendation: -Etiology of his altered mental status is unknown at this time. She is alert and oriented 4 but mentions obvious delusions of having that she does not have. Her kidney function has worsened acutely since discharge, which could be causing this confusion. In addition, patient's urinalysis appeared to possibly have infection. As such, it is possible that patient's confusion is due to continued altered mental status due to a medical etiology. However, family does report that patient has had some psychotic type symptoms for the past 9 years. As such, psychiatric illness cannot be excluded at this time. The psychiatric medication quetiapine assisted last time she was here, which she stopped taking after discharge. Would recommend restarting this medication at the discharge dose of 12.5 mg by mouth twice a day. -Recommend continuing alprazolam 0.5 mg by mouth every 8 hours when necessary as long as patient does not become increasingly confused, as can happen with benzodiazepines. -Will continue to monitor while inpatient Qualifiers: Altered mental status type: transient alteration of awareness Qualified Code(s): R40.4 - Transient alteration of awareness History of Present Illness Patient: known to practice within the last 3 years Requesting Physician: Maribel Correa MD Reason for consult: Altered mental status History of present illness: Ms. Roberts is a 67 year old female with no significant past psychiatric history known of who was admitted on 07/12/2018 and who was consulted to psychiatry today for altered mental status, coming in only mildly responsive to painful stimuli. Patient was recently seen by this consult service for similar altered mental status. She was placed on quetiapine 12.5 mg by mouth twice a day and improved. However, family reports that patient ripped up the prescription when she came home and did not take the medicine. Reports states that patient initially appeared as if she had an opioid overdose, responding to a second dose of Narcan. She was found to have poor kidney function, with increased BUN and Creatinine from baseline. Family reports that patient was seeing spiders on her arms, wires coming out of her, changes in her home, in speaking about her boyfriend that she does not have. They report that she has been having these symptoms for the past 9 years. In addition, they report that she reports that she has multiple sclerosis, but they were told by a doctor that she does not. When seeing the patient today, she appeared drowsy. She says that she is "just fine." She denies significant issues with depression and anxiety. She denies issues with sleep and appetite. She reports that she was confused at home but not currently. She believes that she was confused due to her multiple sclerosis, which she received a diagnosis of an [address] Ruiz. She reports that her family doctor is now in [place]. She reports that she stopped taking all psychiatric medication other than melatonin per her doctor's orders. In asking where she is today, she states "Lin." When asked where that was, she states that that is her boyfriend but now her . I asked if he had been in the hospital today which she explains that he has not because he is a "company tanker truck driver." She denies visual and auditory hallucinations, with this provider specifically asking if there were bugs in the room, which she denies. She denies suicidal and homicidal ideation as well as side effects of medic ations. She was Alert and oriented 4. CC: Maribel Correa MD Past Med Surg Social Fam HX - Past Medical History Source: patient Medical history: arthritis, atrial fibrillation, CHF, COPD, coronary artery disease, DVT, GERD, hyperlipidemia, hypertension, migraine, myocardial infarction, osteoporosis, RA, renal disease, other - Past Psychiatric History Psychiatric history: Reports: no psych history Family psychiatric history: Unknown Family History of Suicide: Unknown - Past Surgical History Surgical History: appendectomy, colectomy, orthopedic, other, pacemaker/AICD, o ther - Social History Smoking Status: Never smoker Smokeless Tobacco Status: No Alcohol use: none Drug use: none Occupational status: other Current living situation: Other Activity Level: Other Recent Out of Country Travel Within the Last 8 Weeks: No - Family History Father Living Status: Hx Family Cardiac Disorders: Yes (Hypertension) Hx Family Respiratory Disorders: No Hx Family Cancer: Yes (Colon cancer) Hx Family GI Disorders: No Hx Family Endocrine Disorder: Yes (Diabetes) Hx Family Neuromuscular Disorders: No Hx Family Neurologic Disorders: No Hx Family HEENT Disorders: No Hx Family Autoimmune Disorders: No Mother Living Status: Hx Family Cardiac Disorders: Yes (Hypertension) Hx Family Cancer: Yes (Breast) Hx Family Endocrine Disorder: Yes (Diabetes) Medications & Allergies RX: Albuterol Sulfate [Albuterol Inhaler] 2 puff IH Q4H PRN 11/04/15 [History] RX: Pramipexole [Mirapex] 0.5 mg PO DAILY #30 tablet 11/12/15 [Rx] RX: Nitroglycerin [Nitrostat] 0.4 mg SL Q5M PRN 03/11/17 [History] RX: Oxycodone HCl/Acetaminophen [Percocet 7.5-325 mg Tablet] 1 tab PO TID PRN MDD 3 03/11/17 [History] RX: Tizanidine HCl 4 mg PO Q8H PRN 04/20/17 [History] RX: Metoprolol Succinate [Toprol Xl] 50 mg PO DAILY 10/01/17 [History] RX: Pantoprazole Sodium [Protonix] 40 mg PO DAILY 10/01/17 [History] RX: Spironolactone [Aldactone] 50 mg PO DAILY 10/01/17 [History] RX: Cyanocobalamin (B-12) [Vitamin B12] 1,000 mcg PO DAILY #20 tablet 10/03/17 [Rx] RX: Armodafinil 200 mg PO DAILY 04/11/18 [History] RX: Cholecalciferol (D-3) [Vitamin D] 1,000 unit PO DAILY 04/11/18 [History] RX: Atorvastatin Calcium [Lipitor] 20 mg PO QPM 05/22/18 [History] RX: Furosemide [Lasix] 40 mg PO DAILY 05/22/18 [History] RX: Apixaban [Eliquis] 5 mg PO BID #60 tablet 05/26/18 [Rx] RX: Ferrous Sulfate 325 mg PO BID 06/24/18 [History] RX: Fluticasone Propionate Nasal [Flonase] 2 spray NS BID 06/24/18 [History] RX: Lisinopril [Zestril] 20 mg PO BID 06/24/18 [History] RX: Venlafaxine [Effexor] 75 mg PO DAILY 06/24/18 [History] RX: predniSONE [PredniSONE] 10 mg PO DAILY 06/24/18 [History] RX: Baclofen 10 mg PO TID #0 06/27/18 [Rx] RX: Melatonin 3 mg PO HS #30 tablet 06/27/18 [Rx] RX: Quetiapine Fumarate [Seroquel] 12.5 mg PO BID #30 tablet 06/28/18 [Rx] RX: ARIPiprazole [Abilify] 5 mg PO DAILY 07/12/18 [History] Allergy/AdvReac Type Severity Reaction Status Date / Time mannitol [From Reclast] Allergy Hives Verified 04/20/17 11:48 zoledronic acid Allergy Hives Verified 04/20/17 11:48 [From Reclast] adhesive tape AdvReac Rash Verified 04/20/17 11:48 aspirin AdvReac Nausea Verified 04/20/17 11:48 cephalexin [From Keflex] AdvReac STOMACH Verified 04/20/17 11:48 UPSET codeine AdvReac Abdominal Verified 04/20/17 11:48 Pain Iodinated Contrast- Oral and AdvReac Hives AND Verified 04/20/17 11:48 IV Dye BREATHING ISSUES Review of Systems Neurological: Reports: confusion Psychiatric: Reports: confusion. Denies: depression, anxiety, abnormal sleep pattern, suicidal ideation, change in appetite, homicidal ideation, auditory hallucinations, visual hallucinations Psychiatry Exam - Constitutional Vitals: Temp Pulse Resp BP Pulse Ox 96.0 F L 78 14 114/74 100 07/12/18 08:22 07/12/18 08:22 07/12/18 08:22 07/12/18 08:22 07/12/18 08:43 General appearance: age & developmentally appropriate, well-groomed, well- nourished, average - Musculoskeletal Gait: other (Not assessed) Station: relaxed Strength & Tone: normal for patient (Grossly) - Psychiatric Patient Orientation: Yes Person, Yes Time, Yes Place (Initially mentioned the name of her boyfriend, who does not exist), Yes Circumstance Level of alertness: Alert, Follows commands Behavior: calm, cooperative Psychomotor activity: Normal Eye Contact: Maintains Eye Contact Mood Description: Euthymic/stable Patient description of mood: "Just fine." Affect description: congruent with mood, full range Speech Volume: Normal Speech pattern: normal rate, normal rhythm, normal tone, fluent, spontaneous, appropriate, clear, coherent Language & Vocabulary: consistent with education Thought Process: Logical, Linear, Goal Oriented Thought Content: No Suicidal ideation, No Homicidal ideation, Yes Overt delusions (Reports that she has a or family states she does not have) Perceptual Disturbances: No Reacting to internal stimuli, No Auditory hallucinations, No Visual hallucinations Attention Span Ability: Capable of Focused Attention Memory Description: Grossly Intact Patient Reliability: Reliable Historian Fund of knowledge: Yes aware of current events Intelligence Estimate: Average Judgment: Limited Insight: Minimal Results - Drug Levels and Toxicology Drug Levels and Toxicology: Drug Levels and Toxicity 07/12/18 01:47 Urine Opiates Screen Negative Ur Barbiturates Screen Negative Ur Phencyclidine Scrn Negative Ur Amphetamines Screen Negative U Benzodiazepines Scrn Negative Urine Cocaine Screen Negative U Marijuana (THC) Screen Negative - Labs Labs: Laboratory Last Values WBC 8.0 K/mcL (4.3-11.1) 07/12/18 01:01 RBC 3.97 M/mcL (3.82-4.97) 07/12/18 01:01 Hgb 13.4 g/dL (11.5-15.4) 07/12/18 01:01 Hct 41.7 % (35.3-44.9) 07/12/18 01:01 MCV 105.0 fL (83.0-100.0) H 07/12/18 01:01 MCH 33.8 pg (28.0-33.3) H 07/12/18 01:01 MCHC 32.1 g/dL (31.6-35.5) 07/12/18 01:01 RDW 14.3 % (11.5-14.5) 07/12/18 01:01 Plt Count 157 K/mcL (140-400) 07/12/18 01:01 MPV 10.4 fL (9.4-12.4) 07/12/18 01:01 Immature Gran % 0.3 % (0-4) 07/12/18 01:01 Seg Neutrophils % 81.0 % 07/12/18 01:01 Lymphocytes % 11.3 % 07/12/18 01:01 Monocytes % 6.4 % 07/12/18 01:01 Eosinophils % 0.4 % 07/12/18 01:01 Basophils % 0.6 % 07/12/18 01:01 Neutrophils # 6.5 K/mcL (1.6-8.9) 07/12/18 01:01 Lymphocytes # 0.9 K/mcL (0.6-4.6) 07/12/18 01:01 Monocytes # 0.5 K/mcL (0.0-1.3) 07/12/18 01:01 Eosinophils # 0.0 K/mcL (0.0-0.6) 07/12/18 01:01 Basophils # 0.1 K/mcL (0.0-0.2) 07/12/18 01:01 Sodium 142 mEq/L (136-145) 07/12/18 01:01 Potassium 4.9 mEq/L (3.5-5.1) 07/12/18 01:01 Chloride 106 mEq/L (98-107) 07/12/18 01:01 Carbon Dioxide 24 mEq/L (23-29) 07/12/18 01:01 BUN 52 mg/dL (8-23) H 07/12/18 01:01 Creatinine 2.10 mg/dL (0.60-1.20) H 07/12/18 01:01 Est GFR ( Amer) 28 (> 60) L 07/12/18 01:01 Est GFR (Non-Af Amer) 23 (> 60) L 07/12/18 01:01 BUN/Creatinine Ratio 25 (6-26) 07/12/18 01:01 Glucose 105 mg/dL (70-105) 07/12/18 01:01 Calculated Osmolality 308 (280-300) H 07/12/18 01:01 Lactic Acid 1.0 mmol/L (0.5-2.2) 07/12/18 00:59 Calcium 9.8 mg/dL (8.6-10.3) 07/12/18 01:01 Total Bilirubin 0.7 mg/dL (0.3-1.0) 07/12/18 01:01 AST 25 Units/L (13-39) 07/12/18 01:01 ALT 18 Units/L (7-52) 07/12/18 01:01 Alkaline Phosphatase 78 Units/L (34-104) 07/12/18 01:01 Troponin I < 0.03 ng/mL (< 0.04) 07/12/18 01:01 Serum Total Protein 7.1 g/dL (6.4-8.9) 07/12/18 01:01 Albumin 4.4 g/dL (3.5-5.7) 07/12/18 01:01 Globulin 2.7 g/dL (2.4-3.5) 07/12/18 01:01 Albumin/Globulin Ratio 1.6 (1.1-2.2) 07/12/18 01:01 Lipase 17 Units/L (11-82) 07/12/18 01:01 Urine Color Yellow (Yellow) 07/12/18 01:47 Urine Clarity Clear (Clear) 07/12/18 01:47 Urine pH 6.0 pH Units (5.0-8.0) 07/12/18 01:47 Ur Specific [place] 1.010 (1.010-1.025) 07/12/18 01:47 Urine Protein Negative mg/dL (Neg-Trace) 07/12/18 01:47 Urine Glucose (UA) Normal mg/dL (Normal) 07/12/18 01:47 Urine Ketones Negative mg/dL (Negative) 07/12/18 01:47 Urine Blood Negative (Negative) 07/12/18 01:47 Urine Nitrite Negative (Negative) 07/12/18 01:47 Urine Bilirubin Negative (Negative) 07/12/18 01:47 Urine Urobilinogen Normal mg/dL (Normal) 07/12/18 01:47 Ur Leukocyte Esterase Small (Negative) H 07/12/18 01:47 Urine Microscopic RBC 0-3 per hpf (0-3) 07/12/18 01:47 Urine Microscopic WBC 5-15 per hpf (0-3) H 07/12/18 01:47 Ur Squamous Epith Cells Moderate per lpf (None-Few) H 07/12/18 01:47 Urine Bacteria None Seen per hpf (None-Few) 07/12/18 01:47 Hyaline Casts None Seen per lpf (None-Few) 07/12/18 01:47 Ur Culture Indicated? YES (NO) A 07/12/18 01:47 Urine Opiates Screen Negative ng/mL (Vttvji=618) 07/12/18 01:47 Ur Barbiturates Screen Negative ng/mL (Xdqugr=733) 07/12/18 01:47 Ur Phencyclidine Scrn Negative ng/mL (Cutoff=25) 07/12/18 01:47 Ur Amphetamines Screen Negative ng/mL (Ydtmxm=4900) 07/12/18 01:47 U Benzodiazepines Scrn Negative ng/mL (Qbbecm=557) 07/12/18 01:47 Urine Cocaine Screen Negative ng/mL (Cutoff= 300) 07/12/18 01:47 U Marijuana (THC) Screen Negative ng/mL (Cutoff = 50) 07/12/18 01:47 Ur Drug Screen Interp See Below 07/12/18 01:47 - Impressions Impressions Chest X-Ray 07/12/18 00:50 IMPRESSION: No acute cardiopulmonary findings on this exam limited by shallow inspiratory effort. Hiatus hernia. D/ / Dontae Vanessa / Dontae Vanessa Interpreting Provider: Dontae Vanessa Consult Discharge Plan - Plan Referrals: NONE,PCP [Primary Care Provider] - - Attending Attestation I examined this patient and my medical decision-making was reviewed with the Resident Physician. I agree with the documented findings, disposition and treatment plan as described except to the extent set forth below.
[2018-07-12 13:08] LABS: Basophils % 0.6 %; Eosinophils # 0.1 K/mcL (0.0-0.6); Eosinophils % 1.8 %; Hematocrit 38.1 % (35.3-44.9); Hemoglobin 12.1 g/dL (11.5-15.4); Immature Granulocytes % 0.2 % (0-4); Lymphocytes # 1.3 K/mcL (0.6-4.6); Lymphocytes % 25.4 %; Mean Corpuscular HGB Conc 31.8 g/dL (31.6-35.5); Mean Corpuscular Hemoglobin 33.4 pg (28.0-33.3); Mean Corpuscular Volume 105.2 fL (83.0-100.0); Mean Platelet Volume 10.4 fL (9.4-12.4); Monocytes # 0.5 K/mcL (0.0-1.3); Monocytes % 10.6 %; Neutrophils # 3.1 K/mcL (1.6-8.9); Platelet Count 135 K/mcL (140-400); Red Blood Count 3.62 M/mcL (3.82-4.97); Red Cell Distribution Width 14.2 % (11.5-14.5); Segmented Neutrophils % 61.4 %
[2018-07-12 13:21] LABS: Calcium 8.8 mg/dL (8.6-10.3); Potassium 4.5 mEq/L (3.5-5.1)
[2018-07-13] MEDS: 0.9 % Sodium Chloride 1,000 ML IVC SCH ×3 (00:27→17:13)
[2018-07-13] MEDS: Acetaminophen 325 MG TABLET PO PRN (05:29)
[2018-07-13] MEDS: *HR* Heparin 5,000 UNIT/ML VIAL SQ SCH (05:29)
--- NOTE | 2018-07-13 08:30 | Electrocardiograph Report ---
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
[2018-07-13] MEDS ORDERED: tiZANidine 4 MG TABLET PO PRN (09:34)
[2018-07-13] MEDS ORDERED: Nitroglycerin 0.4 MG TAB.SUBL SL PRN (09:34)
--- NOTE | 2018-07-13 09:55 | Psychiatry Progress Note ---
Date of Encounter: 07/13/18 Time of Encounter: 08:15 Subjective Interval history: Patient was seen today eating breakfast. She reports she is enjoying her breakfast. She was alert and oriented 4 today. She denies issues with appetite. She denies issues with depression and anxiety today as well as sleep, she reports not sleeping as well she does when she is home. She does explain that she does want to go home. She grossly does not exhibit any delusional or hallucinatory speech. However, when asked about her boyfriend, she reports that she has not spoke with him. She does admit that they were . She reports that her last name is "Riley." However, she says that she uses the name Alejandra has all her records are in that name. She stated that she has not spoke with her due to him being "on the road." She denies side effects to medication. She denies SI, HI, and AVH. Review of Systems Neurological: Reports: confusion Psychiatric: Reports: confusion, other (Delusions, thinking that she has hus band). Denies: depression, anxiety, abnormal sleep pattern, suicidal ideation, change in appetite, homicidal ideation, auditory hallucinations, visual hallucinations Results - Vital Signs Vital Signs: Temp Pulse Resp BP Pulse Ox 98.1 F 65 16 145/76 100 07/13/18 06:54 07/13/18 06:54 07/13/18 06:54 07/13/18 06:54 07/13/18 06:54 - Drug Levels and Toxicology Drug Levels and Toxicology: None noted this a.m. - Labs Labs: Laboratory Results - last 24 hr 07/12/18 07/12/18 12:49 12:49 WBC 5.1 RBC 3.62 L Hgb 12.1 Hct 38.1 MCV 105.2 H MCH 33.4 H MCHC 31.8 RDW 14.2 Plt Count 135 L MPV 10.4 Immature Gran % 0.2 Seg Neutrophils % 61.4 Lymphocytes % 25.4 Monocytes % 10.6 Eosinophils % 1.8 Basophils % 0.6 Neutrophils # 3.1 Lymphocytes # 1.3 Monocytes # 0.5 Eosinophils # 0.1 Basophils # 0.0 Sodium 141 Potassium 4.5 Chloride 110 H Carbon Dioxide 24 BUN 41 H Creatinine 1.30 H Est GFR ( Amer) 49 L Est GFR (Non-Af Amer) 41 L BUN/Creatinine Ratio 32 H Glucose 76 Calculated Osmolality 301 H Calcium 8.8 - Impressions ITS Impressions Chest X-Ray 07/12/18 00:50 IMPRESSION: No acute cardiopulmonary findings on this exam limited by shallow inspiratory effort. Hiatus hernia. D/ / Dontae Vanessa / Dontae Vanessa Interpreting Provider: Dontae Vanessa Assessment and Plan (1) Altered mental status Current visit: No Status: Acute Plan: Continue hospitalization, Monitor sleep, Monitor appetite Additional Plan: -Patient's family is worried that patient cannot take care of herself and that she does not have support at home to do so. There is a thought plan for patient to go to an ECF, which psychiatry agrees with. At this moment, we do not think patient has capacity to make the decision to go home at this time due to her confusion and her misunderstanding of her current medical situation. Note that if patient disagrees, guardianship may need to be sought. -Recommend restarting quetiapine 12.5 mg by mouth twice a day -Recommend continuing alprazolam 0.5 mg by mouth every 8 hours when necessary as long as patient does not become increasingly confused, as can happen with benzodiazepines. -Will continue to monitor while inpatient Risks, benefits, side effects, alternatives discussed w/pt: No (No changes made today) Patient agreeable to treatment: Yes Qualifiers: Altered mental status type: transient alteration of awareness Qualified Code(s): R40.4 - Transient alteration of awareness Consult Discharge Plan - Plan Referrals: Addy Fraire MD [Non-Partnered Physician] - 07/19/18 10:45 am Psychiatry Exam - Constitutional Vitals: Temp Pulse Resp BP Pulse Ox 98.1 F 65 16 145/76 100 07/13/18 06:54 07/13/18 06:54 07/13/18 06:54 07/13/18 06:54 07/13/18 06:54 General appearance: age & developmentally appropriate, well-groomed, well- nourished, average - Musculoskeletal Gait: other (Not assessed) Station: relaxed Strength & Tone: normal for patient (Grossly) - Psychiatric Patient Orientation: Yes Person, Yes Time, Yes Place, Yes Circumstance Level of alertness: Alert, Follows commands Behavior: calm, cooperative Psychomotor activity: Normal Eye Contact: Maintains Eye Contact Mood Description: Euthymic/stable Patient description of mood: "Good" Affect description: congruent with mood, full range Speech Volume: Normal Speech pattern: normal rate, normal rhythm, normal tone, fluent, spontaneous, appropriate, clear, coherent, garbled (Mild issue with voice, though was eating breakfast) Language & Vocabulary: consistent with education Thought Process: Logical, Linear, Goal Oriented Thought Content: No Suicidal ideation, No Homicidal ideation, Yes Overt delusions (Reports that she has a , which family reports she is not have) Perceptual Disturbances: No Reacting to internal stimuli, No Auditory hallucinations, No Visual hallucinations Attention Span Ability: Capable of Focused Attention Memory Description: Grossly Intact Patient Reliability: Questionable Historian Fund of knowledge: Yes aware of current events Intelligence Estimate: Average Judgment: Limited Insight: Minimal
[2018-07-13] MEDS: Cyanocobalamin (B-12) 1,000 MCG TABLET PO SCH (11:37)
[2018-07-13] MEDS: Cholecalciferol (D-3) 1,000 UNIT TABLET PO SCH (11:37)
[2018-07-13] MEDS: Metoprolol XL (24 HR) Succ 50 MG TAB.ER.24H PO SCH (11:37)
[2018-07-13] MEDS: Baclofen 10 MG TABLET PO SCH ×3 (11:37→21:48)
[2018-07-13] MEDS: Lisinopril 20 MG TABLET PO SCH ×2 (11:38→21:44)
[2018-07-13] MEDS: ARIPiprazole 5 MG TABLET PO SCH (11:38)
[2018-07-13] MEDS: ARMODAFINIL 200 MG PO SCH (11:38)
[2018-07-13] MEDS: predniSONE 10 MG TABLET PO SCH (11:47)
[2018-07-13] MEDS: *HR* OxyCODONE/APAP 7.5/325 TABLET PO PRN (11:47)
--- NOTE | 2018-07-13 16:01 | Internal Med Progress Note ---
Hospitalist Progress Note - Encounter Date of Encounter: 07/13/18 Time of Encounter: 15:58 - Subjective Interval History: Pt seen and examined. She seems more oriented this morning. - Exam Vitals: Temp Pulse Resp BP Pulse Ox 98.1 F 69 16 122/72 96 07/13/18 11:39 07/13/18 11:39 07/13/18 11:39 07/13/18 11:39 07/13/18 11:39 Exam: PHYSICAL EXAMINATION: GENERAL APPEARANCE: The patient is alert, oriented and in no acute distress. HEENT: Head is normocephalic. The sinuses are nontender. Pupils are equal and reactive. The nares are patent. Oropharynx clear without lesions. NECK: Supple without lymphadenopathy. HEART: Regular rate and rhythm. LUNGS: No crackles or wheezes are heard. ABDOMEN: Soft, nontender, nondistended with good bowel sounds heard. Inguinal area is normal. EXTREMITIES: Without cyanosis, clubbing or edema. NEUROLOGICAL: Gross nonfocal. SKIN: Warm and dry without any rash. - Assessment and Plan (1) Altered mental status Current Visit: Yes Status: Acute Assessment and Plan: History of multiple episodes of altered mental status Urine drug screen was negative Consult Psychiatry. ADE is likely the cause. resume home meds (2) Acute kidney injury Current Visit: No Status: Acute Assessment and Plan: History of right nephrectomy Cr of 2.10 -->1.2 today. continue IVF. (3) CAD (coronary artery disease) Current Visit: No Status: Chronic Assessment and Plan: No chest pain. (4) PAF (paroxysmal atrial fibrillation) Current Visit: No Status: Chronic Assessment and Plan: rate controlled, continue Eliquis. (5) DVT prophylaxis Current Visit: No Status: Acute Assessment and Plan: on Eliquis. - Time Spent with Patient Total time spent is greater than 50% in coordination of care (as documented) at patient's floor/unit and/or counseling patient: Greater than 35 minutes Plan of Care Discussed with: patient Internal Medicine: Result - Labs CBC & Chem 7: 07/12/18 12:49 07/12/18 12:49 Consult Discharge Plan - Plan Referrals: Addy Fraire MD [Non-Partnered Physician] - 07/19/18 10:45 am (1) Altered mental status Qualifiers: Altered mental status type: transient alteration of awareness Qualified Code(s): R40.4 - Transient alteration of awareness (3) CAD (coronary artery disease) Qualifiers: Coronary Disease-Associated Artery/Lesion type: [place] artery [place] vs. transplanted heart: jena heart Associated angina: without angina Qualified C ode(s): I25.10 - Atherosclerotic heart disease of [place] coronary artery without angina pectoris
[2018-07-13] MEDS: Apixaban 5 MG TABLET PO SCH (21:46)
[2018-07-13] MEDS: Melatonin 3 MG TABLET PO SCH (21:46)
[2018-07-13] MEDS: Fluticasone Propionate Nasal 50 MCG/SPRAY BOTTLE NS SCH (21:46)
[2018-07-14] MEDS: 0.9 % Sodium Chloride 1,000 ML IVC SCH ×2 (02:22→15:00)
[2018-07-14 04:39] LABS: Basophils % 0.3 %; Eosinophils # 0.1 K/mcL (0.0-0.6); Eosinophils % 0.9 %; Hematocrit 32.7 % (35.3-44.9); Immature Granulocytes % 0.2 % (0-4); Lymphocytes # 1.1 K/mcL (0.6-4.6); Lymphocytes % 17.9 %; Mean Corpuscular HGB Conc 31.2 g/dL (31.6-35.5); Mean Corpuscular Hemoglobin 33.9 pg (28.0-33.3); Mean Corpuscular Volume 108.6 fL (83.0-100.0); Mean Platelet Volume 10.5 fL (9.4-12.4); Monocytes # 0.5 K/mcL (0.0-1.3); Monocytes % 8.7 %; Neutrophils # 4.2 K/mcL (1.6-8.9); Platelet Count 119 K/mcL (140-400); Red Blood Count 3.01 M/mcL (3.82-4.97); Red Cell Distribution Width 14.2 % (11.5-14.5)
[2018-07-14 04:41] LABS: Hemoglobin 10.2 g/dL (11.5-15.4)
[2018-07-14 04:56] LABS: BUN/Creatinine Ratio 23 (6-26); Blood Urea Nitrogen 18 mg/dL (8-23); Calcium 8.4 mg/dL (8.6-10.3); Carbon Dioxide 23 mEq/L (23-29); Chloride 114 mEq/L (98-107); Glucose 87 mg/dL (70-105); Osmolality,Calculated 293 (280-300); Potassium 4.9 mEq/L (3.5-5.1); Sodium 141 mEq/L (136-145); eGFR For Non-African Americans > 60 (> 60)
[2018-07-14] MEDS: ARIPiprazole 5 MG TABLET PO SCH (09:45)
[2018-07-14] MEDS: Lisinopril 20 MG TABLET PO SCH (09:45)
[2018-07-14] MEDS: Cyanocobalamin (B-12) 1,000 MCG TABLET PO SCH (09:45)
[2018-07-14] MEDS: Cholecalciferol (D-3) 1,000 UNIT TABLET PO SCH (09:46)
[2018-07-14] MEDS: Apixaban 5 MG TABLET PO SCH ×2 (09:46→21:10)
[2018-07-14] MEDS: Fluticasone Propionate Nasal 50 MCG/SPRAY BOTTLE NS SCH ×2 (09:46→21:11)
[2018-07-14] MEDS: predniSONE 10 MG TABLET PO SCH (09:46)
[2018-07-14] MEDS: Baclofen 10 MG TABLET PO SCH ×3 (09:46→21:10)
[2018-07-14] MEDS: Metoprolol XL (24 HR) Succ 50 MG TAB.ER.24H PO SCH (09:46)
[2018-07-14] MEDS: *HR* OxyCODONE/APAP 7.5/325 TABLET PO PRN ×2 (09:52→21:10)
[2018-07-14] MEDS: ARMODAFINIL 200 MG PO SCH (09:54)
--- NOTE | 2018-07-14 13:08 | Internal Med Progress Note ---
Hospitalist Progress Note - Encounter Date of Encounter: 07/14/18 Time of Encounter: 13:05 - Subjective Interval History: Pt seen and examined in the room. Pt is alert and oriented today. She has no fever, chills, or night sweats. No chest pain, sob, or syncope. - Exam Vitals: Temp Pulse Resp BP Pulse Ox 98.4 F 60 18 91/58 94 07/14/18 12:03 07/14/18 12:03 07/14/18 12:03 07/14/18 12:03 07/14/18 12:03 Exam: PHYSICAL EXAMINATION: GENERAL APPEARANCE: The patient is alert, oriented and in no acute distress. HEENT: Head is normocephalic. The sinuses are nontender. Pupils are equal and reactive. The nares are patent. Oropharynx clear without lesions. NECK: Supple without lymphadenopathy. HEART: Regular rate and rhythm. LUNGS: No crackles or wheezes are heard. ABDOMEN: Soft, nontender, nondistended with good bowel sounds heard. Inguinal area is normal. EXTREMITIES: Without cyanosis, clubbing or edema. NEUROLOGICAL: Gross nonfocal. SKIN: Warm and dry without any rash. - Assessment and Plan (1) Altered mental status Current Visit: Yes Status: Acute Assessment and Plan: Improved, could be secondary to ADE. (2) Acute kidney injury Current Visit: No Status: Resolved Assessment and Plan: History of right nephrectomy Cr of 2.10 -->1.2 --> 0.8 today. DC IVF. (3) CAD (coronary artery disease) Current Visit: No Status: Chronic Assessment and Plan: No chest pain. (4) PAF (paroxysmal atrial fibrillation) Current Visit: No Status: Chronic Assessment and Plan: rate controlled, continue Eliquis. (5) Hypotension Current Visit: No Status: Acute Assessment and Plan: On several different BP meds, was found to have low BP upon arrival. Hx of CHF, euvolemic right now. Hold BP meds including Lasix and aldactone. (6) DVT prophylaxis Current Visit: No Status: Acute Assessment and Plan: on Eliquis. - Time Spent with Patient Total time spent is greater than 50% in coordination of care (as documented) at patient's floor/unit and/or counseling patient: Greater than 35 minutes Plan of Care Discussed with: patient Internal Medicine: Result - Labs CBC & Chem 7: 07/14/18 04:04 07/14/18 04:04 Labs: Short CBC 07/14/18 Range/Units 04:04 WBC 5.9 (4.3-11.1) K/mcL Hgb 10.2 L D (11.5-15.4) g/dL Hct 32.7 L (35.3-44.9) % Plt Count 119 L (140-400) K/mcL Neutrophils # 4.2 (1.6-8.9) K/mcL BMP 07/14/18 04:04 Sodium 141 Potassium 4.9 Chloride 114 H Carbon Dioxide 23 BUN 18 Creatinine 0.80 Glucose 87 Calcium 8.4 L Consult Discharge Plan - Plan Referrals: Addy Fraire MD [Non-Partnered Physician] - 07/19/18 10:45 am (1) Altered mental status Qualifiers: Altered mental status type: transient alteration of awareness Qualified Code(s): R40.4 - Transient alteration of awareness (3) CAD (coronary artery disease) Qualifiers: Coronary Disease-Associated Artery/Lesion type: [place] artery [place] vs. transplanted heart: [place] heart Associated angina: without angina Qualified Code(s): I25.10 - Atherosclerotic heart disease of [place] coronary artery without angina pectoris (5) Hypotension Qualifiers: Hypotension type: unspecified hypotension type Qualified Code(s): I95.9 - Hypotension, unspecified
[2018-07-14] MEDS: Melatonin 3 MG TABLET PO SCH (21:10)
[2018-07-15] MEDS: 0.9 % Sodium Chloride 1,000 ML IVC SCH (01:13)
[2018-07-15 05:21] LABS: Basophils % 0.6 %; Eosinophils % 0.8 %; Hematocrit 33.2 % (35.3-44.9); Hemoglobin 10.6 g/dL (11.5-15.4); Immature Granulocytes % 0.2 % (0-4); Lymphocytes # 1.2 K/mcL (0.6-4.6); Lymphocytes % 22.8 %; Mean Corpuscular HGB Conc 31.9 g/dL (31.6-35.5); Mean Corpuscular Volume 106.4 fL (83.0-100.0); Mean Platelet Volume 10.8 fL (9.4-12.4); Monocytes # 0.5 K/mcL (0.0-1.3); Monocytes % 8.7 %; Neutrophils # 3.5 K/mcL (1.6-8.9); Platelet Count 111 K/mcL (140-400); Red Blood Count 3.12 M/mcL (3.82-4.97); Red Cell Distribution Width 13.9 % (11.5-14.5); Segmented Neutrophils % 66.9 %
[2018-07-15 05:30] LABS: BUN/Creatinine Ratio 23 (6-26); Blood Urea Nitrogen 19 mg/dL (8-23); Calcium 8.7 mg/dL (8.6-10.3); Carbon Dioxide 22 mEq/L (23-29); Chloride 111 mEq/L (98-107); Glucose 74 mg/dL (70-105); Osmolality,Calculated 293 (280-300); Potassium 5.2 mEq/L (3.5-5.1); Sodium 141 mEq/L (136-145); eGFR For Non-African Americans > 60 (> 60)
[2018-07-15] MEDS: ARIPiprazole 5 MG TABLET PO SCH (09:36)
[2018-07-15] MEDS: *HR* OxyCODONE/APAP 7.5/325 TABLET PO PRN ×2 (09:36→20:06)
[2018-07-15] MEDS: Apixaban 5 MG TABLET PO SCH ×2 (09:36→20:06)
[2018-07-15] MEDS: Baclofen 10 MG TABLET PO SCH ×3 (09:36→20:06)
[2018-07-15] MEDS: Cyanocobalamin (B-12) 1,000 MCG TABLET PO SCH (09:36)
[2018-07-15] MEDS: Cholecalciferol (D-3) 1,000 UNIT TABLET PO SCH (09:36)
[2018-07-15] MEDS: predniSONE 10 MG TABLET PO SCH (09:36)
[2018-07-15] MEDS: Fluticasone Propionate Nasal 50 MCG/SPRAY BOTTLE NS SCH ×2 (09:37→20:06)
[2018-07-15] MEDS: ARMODAFINIL 200 MG PO SCH (09:37)
--- NOTE | 2018-07-15 10:57 | Internal Med Progress Note ---
Hospitalist Progress Note - Encounter Date of Encounter: 07/15/18 Time of Encounter: 10:55 - Subjective Interval History: Pt seen and examined in the room. She is alert and oriented. has no complaints at this time. - Exam Vitals: Temp Pulse Resp BP Pulse Ox 97.7 F 71 16 123/78 95 07/15/18 07:48 07/15/18 07:48 07/15/18 07:48 07/15/18 07:48 07/15/18 07:48 Exam: PHYSICAL EXAMINATION: GENERAL APPEARANCE: The patient is alert, oriented and in no acute distress. HEENT: Head is normocephalic. The sinuses are nontender. Pupils are equal and reactive. The nares are patent. Oropharynx clear without lesions. NECK: Supple without lymphadenopathy. HEART: Regular rate and rhythm. LUNGS: No crackles or wheezes are heard. ABDOMEN: Soft, nontender, nondistended with good bowel sounds heard. Inguinal area is normal. EXTREMITIES: Without cyanosis, clubbing or edema. NEUROLOGICAL: Gross nonfocal. SKIN: Warm and dry without any rash. - Assessment and Plan (1) Altered mental status Current Visit: Yes Status: Acute Assessment and Plan: Improved, could be secondary to ADE. (2) Acute kidney injury Current Visit: Yes Status: Resolved (3) CAD (coronary artery disease) Current Visit: No Status: Chronic Assessment and Plan: No chest pain. (4) PAF (paroxysmal atrial fibrillation) Current Visit: No Status: Chronic Assessment and Plan: rate controlled, continue Eliquis. (5) Hypotension Current Visit: No Status: Acute Assessment and Plan: On several different BP meds, was found to have low BP upon arrival. Hx of CHF, euvolemic right now. Hold BP meds including Lasix and aldactone. BP stable. (6) DVT prophylaxis Current Visit: No Status: Acute Assessment and Plan: on Eliquis. - Time Spent with Patient Total time spent is greater than 50% in coordination of care (as documented) at patient's floor/unit and/or counseling patient: Greater than 35 minutes Plan of Care Discussed with: patient Internal Medicine: Result - Labs CBC & Chem 7: 07/15/18 03:51 07/15/18 03:51 Labs: Short CBC 07/15/18 Range/Units 03:51 WBC 5.2 (4.3-11.1) K/mcL Hgb 10.6 L (11.5-15.4) g/dL Hct 33.2 L (35.3-44.9) % Plt Count 111 L (140-400) K/mcL Neutrophils # 3.5 (1.6-8.9) K/mcL [facility] 07/15/18 03:51 Sodium 141 Potassium 5.2 H Chloride 111 H Carbon Dioxide 22 L BUN 19 Creatinine 0.83 Glucose 74 Calcium 8.7 Consult Discharge Plan - Plan Referrals: Addy Fraire MD [Non-Partnered Physician] - 07/19/18 10:45 am (1) Altered mental status Qualifiers: Altered mental status type: transient alteration of awareness Qualified Code(s): R40.4 - Transient alteration of awareness (3) CAD (coronary artery disease) Qualifiers: Coronary Disease-Associated Artery/Lesion type: [place] artery [place] vs. transplanted heart: [place] heart Associated angina: without angina Qualified Code(s): I25.10 - Atherosclerotic heart disease of [place] coronary artery without angina pectoris (5) Hypotension Qualifiers: Hypotension type: unspecified hypotension type Qualified Code(s): I95.9 - Hypotension, unspecified
[2018-07-15] MEDS: ALPRAZolam 0.5 MG TABLET PO PRN (20:06)
[2018-07-15] MEDS: Melatonin 3 MG TABLET PO SCH (20:06)
[2018-07-16 03:13] LABS: Hematocrit 34.2 % (35.3-44.9); Hemoglobin 10.8 g/dL (11.5-15.4); Immature Platelets 2.9 % (1.1-6.1); Mean Corpuscular HGB Conc 31.6 g/dL (31.6-35.5); Mean Corpuscular Hemoglobin 33.8 pg (28.0-33.3); Mean Corpuscular Volume 106.9 fL (83.0-100.0); Mean Platelet Volume 10.6 fL (9.4-12.4); Red Blood Count 3.2 M/mcL (3.82-4.97); Red Cell Distribution Width 13.6 % (11.5-14.5)
[2018-07-16 03:31] LABS: BUN/Creatinine Ratio 17 (6-26); Blood Urea Nitrogen 15 mg/dL (8-23); Calcium 8.9 mg/dL (8.6-10.3); Carbon Dioxide 25 mEq/L (23-29); Chloride 111 mEq/L (98-107); Glucose 96 mg/dL (70-105); Osmolality,Calculated 293 (280-300); Potassium 4.9 mEq/L (3.5-5.1); Sodium 141 mEq/L (136-145); eGFR For Non-African Americans > 60 (> 60)
[2018-07-16] MEDS: *HR* OxyCODONE/APAP 7.5/325 TABLET PO PRN ×2 (09:40→21:21)
[2018-07-16] MEDS: Cholecalciferol (D-3) 1,000 UNIT TABLET PO SCH (09:40)
[2018-07-16] MEDS: Cyanocobalamin (B-12) 1,000 MCG TABLET PO SCH (09:40)
[2018-07-16] MEDS: Apixaban 5 MG TABLET PO SCH ×2 (09:40→21:21)
[2018-07-16] MEDS: predniSONE 10 MG TABLET PO SCH (09:40)
[2018-07-16] MEDS: Baclofen 10 MG TABLET PO SCH ×3 (09:41→21:21)
[2018-07-16] MEDS: ARMODAFINIL 200 MG PO SCH (09:41)
[2018-07-16] MEDS: Fluticasone Propionate Nasal 50 MCG/SPRAY BOTTLE NS SCH ×2 (09:41→21:22)
[2018-07-16] MEDS: ARIPiprazole 5 MG TABLET PO SCH (09:41)
--- NOTE | 2018-07-16 10:43 | Internal Med Progress Note ---
Hospitalist Progress Note - Encounter Date of Encounter: 07/16/18 Time of Encounter: 10:41 - Subjective Interval History: Patient seen and examined in the room, she has no complaints at this time. She denies suicidal ideation or hallucination. When discussed about the discharge destination, patient firmly refused ECF or rehabilitation. She stated that she has enough help at home. - Exam Vitals: Temp Pulse Resp BP Pulse Ox 98.0 F 82 16 111/79 97 07/16/18 07:25 07/16/18 07:25 07/16/18 07:25 07/16/18 07:25 07/16/18 07:25 Exam: PHYSICAL EXAMINATION: GENERAL APPEARANCE: The patient is alert, oriented and in no acute distress. HEENT: Head is normocephalic. The sinuses are nontender. Pupils are equal and reactive. The nares are patent. Oropharynx clear without lesions. NECK: Supple without lymphadenopathy. HEART: Regular rate and rhythm. LUNGS: No crackles or wheezes are heard. ABDOMEN: Soft, nontender, nondistended with good bowel sounds heard. Inguinal area is normal. EXTREMITIES: Without cyanosis, clubbing or edema. NEUROLOGICAL: Gross nonfocal. SKIN: Warm and dry without any rash. - Assessment and Plan (1) Altered mental status Current Visit: Yes Status: Acute Assessment and Plan: Improved, could be secondary to ADE. (2) Acute kidney injury Current Visit: Yes Status: Resolved (3) CAD (coronary artery disease) Current Visit: No Status: Chronic Assessment and Plan: No chest pain. (4) PAF (paroxysmal atrial fibrillation) Current Visit: No Status: Chronic Assessment and Plan: rate controlled, continue Eliquis. (5) Hypotension Current Visit: No Status: Acute Assessment and Plan: On several different BP meds, was found to have low BP upon arrival. Hx of CHF, euvolemic right now. Hold BP meds including Lasix and aldactone. BP stable. (6) DVT prophylaxis Current Visit: No Status: Acute Assessment and Plan: on Eliquis. - Time Spent with Patient Total time spent is greater than 50% in coordination of care (as documented) at patient's floor/unit and/or counseling patient: Greater than 35 minutes Plan of Care Discussed with: patient Internal Medicine: Result - Labs CBC & Chem 7: 07/16/18 02:59 07/16/18 02:59 Labs: Short CBC 07/16/18 Range/Units 02:59 WBC 4.1 L (4.3-11.1) K/mcL Hgb 10.8 L (11.5-15.4) g/dL Hct 34.2 L (35.3-44.9) % Plt Count 107 L (140-400) K/mcL BMP 07/16/18 02:59 Sodium 141 Potassium 4.9 Chloride 111 H Carbon Dioxide 25 BUN 15 Creatinine 0.90 Glucose 96 Calcium 8.9 Consult Discharge Plan - Plan Referrals: dAdy Fraire MD [Non-Partnered Physician] - 07/19/18 10:45 am (1) Altered mental status Qualifiers: Altered mental status type: transient alteration of awareness Qualified Code(s): R40.4 - Transient alteration of awareness (3) CAD (coronary artery disease) Qualifiers: Coronary Disease-Associated Artery/Lesion type: [place] artery [place] vs. transplanted heart: [place] heart Associated angina: without angina Qualified Code(s): I25.10 - Atherosclerotic heart disease of [place] coronary artery without angina pectoris (5) Hypotension Qualifiers: Hypotension type: unspecified hypotension type Qualified Code(s): I95.9 - Hypotension, unspecified
[2018-07-16] MEDS: Melatonin 3 MG TABLET PO SCH (21:21)
--- NOTE | 2018-07-17 07:59 | Psychiatry Progress Note ---
Date of Encounter: 07/17/18 Time of Encounter: 07:57 Subjective Interval history: Patient continues to have fixed delusions about having a boyfriend/ at home. She says that she has plenty of help at home to care for her however it is unclear if that is actually true or if this is related to her delusion of having a boyfriend/. She does have good understanding of the potential risks of what could happen being at home including falling and being able to get back up or having difficulty getting out of the house in case of a fire. She says her mood is good and denies suicidal or homicidal thoughts ideations or plans. She denies auditory or visual hallucinations. Review of Systems Psychiatric: Reports: confusion, other (Delusions, thinking that she has ). Denies: depression, anxiety, abnormal sleep pattern, suicidal ideati on, change in appetite, homicidal ideation, auditory hallucinations, visual hallucinations Results - Vital Signs Vital Signs: Temp Pulse Resp BP Pulse Ox 98 F 78 17 148/90 95 07/17/18 07:45 07/17/18 07:45 07/17/18 07:45 07/17/18 07:45 07/17/18 07:45 - Impressions ITS Impressions Chest X-Ray 07/12/18 00:50 IMPRESSION: No acute cardiopulmonary findings on this exam limited by shallow inspiratory effort. Hiatus hernia. D/ / Dontae Vanessa / Dontae Vanessa Interpreting Provider: Dontae Vanessa Assessment and Plan (1) Altered mental status Current visit: Yes Status: Acute Additional Plan: If her family feels comfortable taking her home and that they can provide the necessary support and this could be a viable option. However it is unclear to me at this time if her self reports of assistance at home are genuine or related to her delusional process. Related to her delusions then she would not have capacity to make the decision to return home. Risks, benefits, side effects, alternatives discussed w/pt: No (No changes made today) Patient agreeable to treatment: Yes Qualifiers: Altered mental status type: transient alteration of awareness Qualified Code(s): R40.4 - Transient alteration of awareness Consult Discharge Plan - Plan Referrals: Addy Fraire MD [Non-Partnered Physician] - 07/19/18 10:45 am Psychiatry Exam - Constitutional Vitals: Temp Pulse Resp BP Pulse Ox 98 F 78 17 148/90 95 07/17/18 07:45 07/17/18 07:45 07/17/18 07:45 07/17/18 07:45 07/17/18 07:45 General appearance: disheveled - Musculoskeletal Gait: other (In bed) Station: relaxed Strength & Tone: normal for patient - Psychiatric Patient Orientation: Yes Person, Yes Time, Yes Place Level of alertness: Alert Behavior: guarded Psychomotor activity: Slowed Eye Contact: Maintains Eye Contact Mood Description: Euthymic/stable Patient description of mood: "Okay" Affect description: congruent with mood Speech Volume: Normal Speech pattern: normal rate Language & Vocabulary: consistent with education Thought Process: Intact Thought Content: No Suicidal ideation, No Homicidal ideation, Yes Overt delusions, Yes Preoccupation Perceptual Disturbances: No Reacting to internal stimuli Attention Span Ability: Capable of Focused Attention, Capable of Sustained A ttention Memory Description: Grossly Intact Patient Reliability: Questionable Historian Fund of knowledge: Yes average Intelligence Estimate: Average Judgment: Fair Insight: Minimal
--- NOTE | 2018-07-17 09:50 | Internal Med Progress Note ---
Hospitalist Progress Note - Encounter Date of Encounter: 07/17/18 Time of Encounter: 09:45 - Subjective Interval History: Patient seen and examined in the room, she is alert and oriented today. She denies hallucination, or suicidal ideation. When discussed about the discharge planning, patient insisted in going home instead of going group home. She stated that she has plenty of help at home. - Exam Vitals: Temp Pulse Resp BP Pulse Ox 98 F 78 17 148/90 95 07/17/18 07:45 07/17/18 07:45 07/17/18 07:45 07/17/18 07:45 07/17/18 07:45 Exam: PHYSICAL EXAMINATION: GENERAL APPEARANCE: The patient is alert, oriented and in no acute distress. HEENT: Head is normocephalic. The sinuses are nontender. Pupils are equal and reactive. The nares are patent. Oropharynx clear without lesions. NECK: Supple without lymphadenopathy. HEART: Regular rate and rhythm. LUNGS: No crackles or wheezes are heard. ABDOMEN: Soft, nontender, nondistended with good bowel sounds heard. Inguinal area is normal. EXTREMITIES: Without cyanosis, clubbing or edema. NEUROLOGICAL: Gross nonfocal. SKIN: Warm and dry without any rash. - Assessment and Plan (1) Altered mental status Current Visit: Yes Status: Acute Assessment and Plan: Patient was admitted because of mental status change, she was found to have acute renal injury and the hypotension upon arrival. Her mental status has improved after daycare and hypotension were corrected. She is currently at her baseline, she has history of mental health issues, and was seen by psychiatry. Although she denies hallucination or delusion, psychiatry assessed pt and advised she is not competent in making any medical decisions. PT/OT recommended ECF. Plan to discharge to ECF next Wednesday. (2) Acute kidney injury Current Visit: Yes Status: Resolved (3) CAD (coronary artery disease) Current Visit: No Status: Chronic Assessment and Plan: No chest pain. (4) PAF (paroxysmal atrial fibrillation) Current Visit: No Status: Chronic Assessment and Plan: rate controlled, continue Eliquis. (5) Hypotension Current Visit: No Status: Resolved (6) DVT prophylaxis Current Visit: No Status: Acute Assessment and Plan: on Eliquis. - Time Spent with Patient Total time spent is greater than 50% in coordination of care (as documented) at patient's floor/unit and/or counseling patient: Greater than 35 minutes Plan of Care Discussed with: patient Internal Medicine: Result - Labs CBC & Chem 7: 07/16/18 02:59 07/16/18 02:59 Consult Discharge Plan - Plan Referrals: Addy Fraire MD [Non-Partnered Physician] - 07/19/18 10:45 am (1) Altered mental status Qualifiers: Altered mental status type: transient alteration of awareness Qualified Code(s): R40.4 - Transient alteration of awareness (3) CAD (coronary artery disease) Qualifiers: Coronary Disease-Associated Artery/Lesion type: [place] artery [place] vs. transplanted heart: [place] heart Associated angina: without angina Qualified Code(s): I25.10 - Atherosclerotic heart disease of [place] coronary artery without angina pectoris (5) Hypotension Qualifiers: Hypotension type: unspecified hypotension type Qualified Code(s): I95.9 - Hypotension, unspecified
[2018-07-17] MEDS: Apixaban 5 MG TABLET PO SCH ×2 (10:04→19:59)
[2018-07-17] MEDS: Cyanocobalamin (B-12) 1,000 MCG TABLET PO SCH (10:04)
[2018-07-17] MEDS: predniSONE 10 MG TABLET PO SCH (10:04)
[2018-07-17] MEDS: ARIPiprazole 5 MG TABLET PO SCH (10:04)
[2018-07-17] MEDS: Baclofen 10 MG TABLET PO SCH ×3 (10:04→19:59)
[2018-07-17] MEDS: Cholecalciferol (D-3) 1,000 UNIT TABLET PO SCH (10:04)
[2018-07-17] MEDS: ARMODAFINIL 200 MG PO SCH (10:05)
[2018-07-17] MEDS: Fluticasone Propionate Nasal 50 MCG/SPRAY BOTTLE NS SCH ×2 (10:05→20:00)
[2018-07-17] MEDS: *HR* OxyCODONE/APAP 7.5/325 TABLET PO PRN ×2 (10:07→19:58)
[2018-07-17] MEDS: Melatonin 3 MG TABLET PO SCH (19:59)
[2018-07-18 07:00] VITALS: BP 135/85
[2018-07-18] MEDS: Cholecalciferol (D-3) 1,000 UNIT TABLET PO SCH (09:10)
[2018-07-18] MEDS: Apixaban 5 MG TABLET PO SCH (09:10)
[2018-07-18] MEDS: ARIPiprazole 5 MG TABLET PO SCH (09:11)
[2018-07-18] MEDS: predniSONE 10 MG TABLET PO SCH (09:11)
[2018-07-18] MEDS: Baclofen 10 MG TABLET PO SCH (09:11)
[2018-07-18] MEDS: ARMODAFINIL 200 MG PO SCH (09:11)
[2018-07-18] MEDS: Cyanocobalamin (B-12) 1,000 MCG TABLET PO SCH (09:11)
[2018-07-18] MEDS: Acetaminophen 325 MG TABLET PO PRN (09:15)
--- NOTE | 2018-07-18 09:49 | Discharge Summary ---
- NOTES TO OUTPATIENT PROVIDER Notes to Outpatient Provider: f/u with psych within a week. f/u with PCP within 2 weeks. Date of Encounter: 07/18/18 Time of Encounter: 09:48 - Discharge Diagnosis (1) Altered mental status Priority: Primary Status: Acute Qualifiers: Altered mental status type: transient alteration of awareness Qualified Code(s): R40.4 - Transient alteration of awareness (2) Acute kidney injury Priority: Primary Status: Resolved (3) CAD (coronary artery disease) Priority: Secondary Status: Chronic Qualifiers: Coronary Disease-Associated Artery/Lesion type: [place] artery [place] vs. transplanted heart: [place] heart Associated angina: without angina Qualified Code(s): I25.10 - Atherosclerotic heart disease of [place] coronary artery without angina pectoris (4) PAF (paroxysmal atrial fibrillation) Priority: Secondary Status: Chronic (5) Hypotension Priority: Primary Status: Acute Qualifiers: Hypotension type: unspecified hypotension type Qualified Code(s): I95.9 - Hypotension, unspecified (6) DVT prophylaxis Priority: Primary Status: Acute Hospital course: Ms. Roberts is a 67 year old female with history of Afib, CHF, COPD, CAD/CA, DVT, HTN, HLD, GERD, right nephrectomy. Patient presents for altered mental status. Patient states this evening, she was walking the hallway, when she went blank. States this means she lost consciousness. Patient states it was her MS acting up. Prior to the episode, patient states she was sleeping all day. States this is normal for her MS. Family shakes their heads indicating this is not true. Home nurse reported patient kept falling asleep throughout the day. This evening, she was walking down the hallway when her grandson came home. She did not respond despite him calling after her multiple times. She sat in a chair and became unresponsive. EMS was called. In the ER, she had pinpoint pupils and only mild response to pain. It was suspected to be an opiate overdose and narcan was given. Patient responded to 2nd dose. Patient states she only took one Percocet this afternoon at 2pm. States she only takes one Percocet a day. They report she comes to the hospital once a month for the same issue. And p atient will state that it was her MS and a UTI. Family states they were told at previous admission that she does not have MS. Family suspects that she abuses her medications. They state she passes out on the toilet all the time and slurs her speech. She recently got a locked box dispensary that dispenses the correct amount of meds. However, family states that shes a hoarder and suspect that she has secret stashes of meds. Whenever they even touch a pill bottle, she becomes very suspicious of them and confrontational. Whenever shes in the hospital, she asks for her purse, which they suspect contains meds as well. Additionally, family states that patient talks of spiders on her arms, wires coming out of her, strange people living in her home, talks about a boyfriend that doesnt exist, etc. States this has been going on for 9 years and has worsened. Family states that shell answer questions appropriately to the medical staff, but once they leave, onofre start talking like that again. Patient was discharged 2 weeks ago for altered mentation. It was suspected to be secondary to overmedication including Percocet, ambien, baclofen, and tizanidine. Additionally, patient had psych consult for psychosis. Seroquel was started and patient improved. However, family reports that once she got home, patient ripped up Seroquel prescription claiming shes not crazy and doesnt need psych meds. Upon arrival, patient was notable for low blood pressure, labs showed acute renal injury. Her blood pressure medicine including diuretics was discontinued. ADE resolved. Psychiatry was consulted, patient home medication for ptosis/depression/anxiety was continued. While in the hospital, patient denies any hallucination, she also denies suicidal ideation or planning, although there is a concern that patient might be delusional. After discussion with patient, family, social sciences research scientist, and the psychiatry, patient will be discharged home with home health care. Patient has made a promise to he family that she will be compliant with her medications especially those for psychosis. Patient was instructed to continue follow-up with psychiatry and PCP as scheduled. Discharge discussed with: patient Time spent discussing smoking cessation with patient: more than 10 minutes - Time Spent with Patient Total time spent providing and/or coordinating discharge services: Time spent: Greater than 30 minutes - Discharge Medications Prescriptions: Continue Albuterol Sulfate [Albuterol Inhaler] 2 puff IH Q4H PRN PRN Reason: Shortness Of Breath Pramipexole [Mirapex] 0.5 mg PO DAILY #30 tablet Nitroglycerin [Nitrostat] 0.4 mg SL Q5M PRN PRN Reason: Chest Pain Oxycodone HCl/Acetaminophen [Percocet 7.5-325 mg Tablet] 1 tab PO TID PRN MDD 3 PRN Reason: Pain Tizanidine HCl 4 mg PO Q8H PRN PRN Reason: Muscle Spasm Pantoprazole Sodium [Protonix] 40 mg PO DAILY Cyanocobalamin (B-12) [Vitamin B12] 1,000 mcg PO DAILY #20 tablet Armodafinil 200 mg PO DAILY Cholecalciferol (D-3) [Vitamin D] 1,000 unit PO DAILY Atorvastatin Calcium [Lipitor] 20 mg PO QPM Apixaban [Eliquis] 5 mg PO BID #60 tablet Ferrous Sulfate 325 mg PO BID Fluticasone Propionate Nasal [Flonase] 2 spray NS BID predniSONE [PredniSONE] 10 mg PO DAILY Venlafaxine [Effexor] 75 mg PO DAILY Baclofen 10 mg PO TID #0 Melatonin 3 mg PO HS #30 tablet Quetiapine Fumarate [Seroquel] 12.5 mg PO BID #30 tablet ARIPiprazole [Abilify] 5 mg PO DAILY Discontinued Metoprolol Succinate [Toprol Xl] 50 mg PO DAILY Spironolactone [Aldactone] 50 mg PO DAILY Furosemide [Lasix] 40 mg PO DAILY Lisinopril [Zestril] 20 mg PO BID Home Medications: Albuterol Sulfate [Albuterol Inhaler] 2 puff IH Q4H PRN 11/04/15 [History] Pramipexole [Mirapex] 0.5 mg PO DAILY #30 tablet 11/12/15 [Rx] Nitroglycerin [Nitrostat] 0.4 mg SL Q5M PRN 03/11/17 [History] Oxycodone HCl/Acetaminophen [Percocet 7.5-325 mg Tablet] 1 tab PO TID PRN MDD 3 03/11/17 [History] Tizanidine HCl 4 mg PO Q8H PRN 04/20/17 [History] Pantoprazole Sodium [Protonix] 40 mg PO DAILY 10/01/17 [History] Cyanocobalamin (B-12) [Vitamin B12] 1,000 mcg PO DAILY #20 tablet 10/03/17 [Rx] Armodafinil 200 mg PO DAILY 04/11/18 [History] Cholecalciferol (D-3) [Vitamin D] 1,000 unit PO DAILY 04/11/18 [History] Atorvastatin Calcium [Lipitor] 20 mg PO QPM 05/22/18 [History] Apixaban [Eliquis] 5 mg PO BID #60 tablet 05/26/18 [Rx] Ferrous Sulfate 325 mg PO BID 06/24/18 [History] Fluticasone Propionate Nasal [Flonase] 2 spray NS BID 06/24/18 [History] Venlafaxine [Effexor] 75 mg PO DAILY 06/24/18 [History] predniSONE [PredniSONE] 10 mg PO DAILY 06/24/18 [History] Baclofen 10 mg PO TID #0 06/27/18 [Rx] Melatonin 3 mg PO HS #30 tablet 06/27/18 [Rx] Quetiapine Fumarate [Seroquel] 12.5 mg PO BID #30 tablet 06/28/18 [Rx] ARIPiprazole [Abilify] 5 mg PO DAILY 07/12/18 [History] Allergies/Adverse Reactions: Allergy/AdvReac Type Severity Reaction Status Date / Time mannitol [From Reclast] Allergy Hives Verified 04/20/17 11:48 zoledronic acid Allergy Hives Verified 04/20/17 11:48 [From Reclast] adhesive tape AdvReac Rash Verified 04/20/17 11:48 aspirin AdvReac Nausea Verified 04/20/17 11:48 cephalexin [From Keflex] AdvReac STOMACH Verified 04/20/17 11:48 UPSET codeine AdvReac Abdominal Verified 04/20/17 11:48 Pain Iodinated Contrast- Oral and AdvReac Hives AND Verified 04/20/17 11:48 IV Dye BREATHING ISSUES Date of admission: 07/12/18 03:37 Primary care physician: PCP NONE Consults: 07/12/18 04:31 Consult to Psychiatry [CONS] Routine Consulting Provider: Psychiat[facility] [place] Reason consult: Psychosis Consult to Rn Review [CONS] Routine Reason for SW Consult: suspected medication abuse 07/13/18 16:14 Consult to Occupational Therapy [CONS] Routine Comment: Evaluate, develop and implement POC Reason for Consult: PATIENT NEEDS PLACEMENT TO SNF. ALSO WILL NEED INSURANCE AUTH Does patient have active BEDREST order?: No Is patient medically & hemodynamically stable?: Yes Consult to Physical Therapy [CONS] Routine Comment: Evaluate, develop and implement POC Reason for Consult: PATIENT NEEDS PLACEMENT TO SNF. ALSO WILL NEED INSURANCE AUTH Does patient have active BEDREST order?: No Is patient medically & hemodynamically stable?: Yes Anticipated date of discharge: 07/18/18 - Constitutional Vitals: Temp Pulse Resp BP Pulse Ox 98.1 F 63 16 135/85 94 07/18/18 06:59 07/18/18 06:59 07/18/18 06:59 07/18/18 06:59 07/18/18 06:59 General appearance: Present: A&O X 3 Exam: PHYSICAL EXAMINATION: GENERAL APPEARANCE: The patient is alert, oriented and in no acute distress. HEENT: Head is normocephalic. The sinuses are nontender. Pupils are equal and reactive. The nares are patent. Oropharynx clear without lesions. NECK: Supple without lymphadenopathy. HEART: Regular rate and rhythm. LUNGS: No crackles or wheezes are heard. ABDOMEN: Soft, nontender, nondistended with good bowel sounds heard. Inguinal area is normal. EXTREMITIES: Without cyanosis, clubbing or edema. NEUROLOGICAL: Gross nonfocal. SKIN: Warm and dry without any rash. - Patient Status Disposition: Home Health Service Condition: Fair Functional capacity at discharge: independent ambulation Overall status at discharge: patient is progressing back to baseline - Discharge Instructions Follow Up With: Addy Fraire MD [Non-Partnered Physician] - 07/19/18 10:45 am () - Diet and Activity Activity: increase activity as tolerated Diet: advance to your usual diet
--- NOTE | 2018-07-18 10:07 | Physician Discharge Referral ---
Home Health/Hosp Referral Info Transfer to: Home Health Provider in Charge Post Discharge: PCP - Diagnosis (1) Altered mental status Priority: Primary Status: Acute (2) Acute kidney injury Priority: Primary Status: Resolved (3) CAD (coronary artery disease) Priority: Secondary Status: Chronic (4) PAF (paroxysmal atrial fibrillation) Priority: Secondary Status: Chronic (5) Hypotension Priority: Primary Status: Acute (6) DVT prophylaxis Priority: Primary Status: Acute - Respiratory Orders Smoking Cessation: Smoking cessation has been advised. For more information, call the [place] Tobacco Quit Line at 9-320-MSDQ-NOW. - Services Needed Following services are medically necessary services: Nursing, Home Health Aide, Physical Therapy, Occupational Therapy - Transfer Medications Home Medications: Albuterol Sulfate [Albuterol Inhaler] 2 puff IH Q4H PRN 11/04/15 [History] Pramipexole [Mirapex] 0.5 mg PO DAILY #30 tablet 11/12/15 [Rx] Nitroglycerin [Nitrostat] 0.4 mg SL Q5M PRN 03/11/17 [History] Oxycodone HCl/Acetaminophen [Percocet 7.5-325 mg Tablet] 1 tab PO TID PRN MDD 3 03/11/17 [History] Tizanidine HCl 4 mg PO Q8H PRN 04/20/17 [History] Pantoprazole Sodium [Protonix] 40 mg PO DAILY 10/01/17 [History] Cyanocobalamin (B-12) [Vitamin B12] 1,000 mcg PO DAILY #20 tablet 10/03/17 [Rx] Armodafinil 200 mg PO DAILY 04/11/18 [History] Cholecalciferol (D-3) [Vitamin D] 1,000 unit PO DAILY 04/11/18 [History] Atorvastatin Calcium [Lipitor] 20 mg PO QPM 05/22/18 [History] Apixaban [Eliquis] 5 mg PO BID #60 tablet 05/26/18 [Rx] Ferrous Sulfate 325 mg PO BID 06/24/18 [History] Fluticasone Propionate Nasal [Flonase] 2 spray NS BID 06/24/18 [History] Venlafaxine [Effexor] 75 mg PO DAILY 06/24/18 [History] predniSONE [PredniSONE] 10 mg PO DAILY 06/24/18 [History] Baclofen 10 mg PO TID #0 06/27/18 [Rx] Melatonin 3 mg PO HS #30 tablet 06/27/18 [Rx] Quetiapine Fumarate [Seroquel] 12.5 mg PO BID #30 tablet 06/28/18 [Rx] ARIPiprazole [Abilify] 5 mg PO DAILY 07/12/18 [History] Allergies/Adverse Reactions: Allergy/AdvReac Type Severity Reaction Status Date / Time mannitol [From Reclast] Allergy Hives Verified 04/20/17 11:48 zoledronic acid Allergy Hives Verified 04/20/17 11:48 [From Reclast] adhesive tape AdvReac Rash Verified 04/20/17 11:48 aspirin AdvReac Nausea Verified 04/20/17 11:48 cephalexin [From Keflex] AdvReac STOMACH Verified 04/20/17 11:48 UPSET codeine AdvReac Abdominal Verified 04/20/17 11:48 Pain Iodinated Contrast- Oral and AdvReac Hives AND Verified 04/20/17 11:48 IV Dye BREATHING ISSUES Certification: Further, I certify that my clinical findings support that this patient is homebound (i.e. absences from home require considerable and taxing effort and are for medical reasons or alevism services or infrequently or short duration when for other reasons) because: Homebound Reason: Patient requires assistance of a person or device to safely leave home Attestation: My signature below is to certify that this patient is under my care and that I, or nurse practitioner, or a physician's marketing operations assistant working with me, has a [id number] encounter with this patient.
--- NOTE | 2018-07-18 11:19 | Psychiatry Progress Note ---
Date of Encounter: 07/18/18 Time of Encounter: 09:00 Subjective Interval history: Patient was seen in her bed awake. She was accompanied by 2 of her brothers. She reports that she is "great." She explains that she does want to go home today. She reports that she does not need help when at home. However, last week, patient was deemed not to have capacity to make this decision. Family initially wanted patient to going to an ECF; however, as patient would like to go home and additional support is being set up for patient, including Passport and greater assistance from her grandson, patient's family believe she will be okay at home. This provider spoke with both brothers as well as a sister and another family member. They were concerned that another instance of this confusion may happen again. Patient and family were educated on the importance of continuing the medication outpatient, which the patient reports she understands. She initially was hesitant, stating "I do not have bipolar." However, it was explained that these medications are used for more illnesses than bipolar disorder. The brother's report that their sister looks "very good," stating that she is responding better and she is the "old [place]." Patient denies issues with depression or anxiety today. Patient does report poor sleep due to being anxious about going home. She denies issues of appetite. She reports "fuzziness" with the quetiapine. Patient does mention her , which family reports they do not know. She denies SI, HI, and AVH. She is alert and oriented 4. Review of Systems Psychiatric: Reports: abnormal sleep pattern, other (Delusions, thinking that she has ). Denies: depression, anxiety, suicidal ideation, change in appetite, homicidal ideation, auditory hallucinations, visual hallucinations, confusion Endocrine: Reports: fatigue (Possibly due to medications) Results - Vital Signs Vital Signs: Temp Pulse Resp BP Pulse Ox 98.1 F 63 16 135/85 94 07/18/18 06:59 07/18/18 06:59 07/18/18 06:59 07/18/18 06:59 07/18/18 06:59 - Drug Levels and Toxicology Drug Levels and Toxicology: None noted this a.m. - Labs Labs: None noted this a.m. - Impressions ITS Impressions Chest X-Ray 07/12/18 00:50 IMPRESSION: No acute cardiopulmonary findings on this exam limited by shallow inspiratory effort. Hiatus hernia. D/ / Dontae Vanessa / Dontae Vanessa Interpreting Provider: Dontae Vanessa Assessment and Plan (1) Altered mental status Status: Acute Plan: Monitor sleep, Monitor appetite Additional Plan: -Recommend changing quetiapine to 25 mg by mouth daily at bedtime due to patient's issues with fuzziness when taking the morning medication -Recommend continuing venlafaxine 25 mg by mouth daily for mood -Recommend continuing melatonin 3 mg by mouth daily at bedtime for mood -Recommend continuing aripiprazole 5 mg by mouth daily for mood. Note that it may be appropriate to optimize antipsychotic medications into single antipsychotic medication on outpatient when patient is more stable. -Recommend continuing alprazolam 0.5 mg by mouth every 8 hours when necessary -Recommend outpatient psychiatric care -Patient will be discharged today Risks, benefits, side effects, alternatives discussed w/pt: No (No changes made today) Patient agreeable to treatment: Yes Qualifiers: Altered mental status type: transient alteration of awareness Qualified Code(s): R40.4 - Transient alteration of awareness Consult Discharge Plan - Plan Instructions: Altered Mental Status (GEN), Hypoxia (GEN) Referrals: Addy Fraire MD [Non-Partnered Physician] - 07/19/18 10:45 am () - Attending Attestation I discussed this patient and my medical decision-making was reviewed with the Resident Physician. I agree with the documented findings, disposition and treatment plan as described. Psychiatry Exam - Constitutional Vitals: Temp Pulse Resp BP Pulse Ox 98.1 F 63 16 135/85 94 07/18/18 06:59 07/18/18 06:59 07/18/18 06:59 07/18/18 06:59 07/18/18 06:59 General appearance: age & developmentally appropriate, well-groomed, well- nourished, average - Musculoskeletal Gait: other (Not assessed) Station: relaxed Strength & Tone: normal for patient (Grossly) - Psychiatric Patient Orientation: Yes Person, Yes Time, Yes Place, Yes Circumstance Level of alertness: Alert, Follows commands Behavior: calm, cooperative Psychomotor activity: Normal Eye Contact: Maintains Eye Contact Mood Description: Euthymic/stable Patient description of mood: "Great" Affect description: congruent with mood, full range Speech Volume: Normal Speech pattern: normal rate, normal rhythm, normal tone, fluent, spontaneous, appropriate, clear, coherent Language & Vocabulary: consistent with education Thought Process: Logical, Linear, Goal Oriented Thought Content: No Suicidal ideation, No Homicidal ideation, Yes Overt delusions (Continues report that she has a who she has not heard from since admission who her family states does not exist) Perceptual Disturbances: No Reacting to internal stimuli, No Auditory hallucinations, No Visual hallucinations Attention Span Ability: Capable of Focused Attention Memory Description: Grossly Intact Patient Reliability: Reliable Historian Fund of knowledge: Yes abstraction ability, Yes aware of current events Intelligence Estimate: Average Judgment: Limited Insight: Partial
== END 2018-07-18 11:06 | disposition home health service (06) ==
LOC: 2SOUTHHOLD 00:32 → EMEROOARM 00:32 → 2SOUTHHOLD 04:08 → 3BNU 22:08
PROVIDERS: ADMIT Internal Medicine; ATTEND Student in an Organized Health Care Education/Training Program

== ENCOUNTER 2018-12-25 18:05 | Observation (INO) ==
--- NOTE | 2018-12-25 18:27 | Emergency Department Note ---
Disposition Clinical Impression: Unable to ambulate Sciatica Qualifiers: Laterality: left Qualified Code(s): M54.32 - Sciatica, left side Disposition: Admitted As Inpatient Condition: Good Referrals: Addy Fraire MD [Primary Care Provider] - Forms: ED Satisfaction Letter Time of Disposition: 23:03 Back Pain HPI - General Chief Complaint: ED Back Pain/Injury Stated Complaint: possible back pain Time Seen by Provider: 12/25/18 18:12 Source: patient, EMS Mode of arrival: EMS Limitations: no limitations Nursing Notes Reviewed: Yes Vital Signs Reviewed: Yes - History of Present Illness HPI Narrative: 59 with Pmhx MS that has had low back pain for two weeks and then within the last two days it got so bad that she cannot walk or get to the bathroom. She denies night sweats, personal hx of cancer, saddle anesthesia, loss of bowel/bladder control. Her pain is down the left leg all the way to her calf. She is on oxycontin 7.5mg BID for her chronic neck pain, and this has not helped with her back pain. She cannot take a lot of ibuprofen due to kidney issues. She is also on steroids for MS. She denies any recent falls. - Related Data Home Medications Medication Instructions Recorded Confirmed Albuterol Sulfate [Proventil 2 puff IH Q4H PRN 11/04/15 07/12/18 Inhaler] Nitroglycerin [Nitrostat] 0.4 mg SL Q5M PRN 03/11/17 07/12/18 Oxycodone HCl/Acetaminophen 1 tab PO TID PRN MDD 3 03/11/17 07/12/18 [Percocet 7.5-325 mg Tablet] Tizanidine HCl 4 mg PO Q8H PRN 04/20/17 07/12/18 Pantoprazole Sodium [Protonix] 40 mg PO DAILY 10/01/17 07/12/18 Armodafinil 200 mg PO DAILY 04/11/18 07/12/18 Cholecalciferol (D-3) [Vitamin D] 1,000 unit PO DAILY 04/11/18 07/12/18 Atorvastatin Calcium [Lipitor] 20 mg PO QPM 05/22/18 07/12/18 Ferrous Sulfate 325 mg PO BID 06/24/18 07/12/18 Fluticasone Propionate Nasal 2 spray NS BID 06/24/18 07/12/18 [Flonase] Venlafaxine [Effexor] 75 mg PO DAILY 06/24/18 07/12/18 predniSONE [PredniSONE] 10 mg PO DAILY 06/24/18 07/12/18 ARIPiprazole [Abilify] 5 mg PO DAILY 07/12/18 07/12/18 Previous Rx's Medication Instructions Recorded Pramipexole [Mirapex] 0.5 mg PO DAILY #30 tablet 11/12/15 Cyanocobalamin (B-12) [Vitamin B12] 1,000 mcg PO DAILY #20 tablet 10/03/17 Apixaban [Eliquis] 5 mg PO BID #60 tablet 05/26/18 Baclofen 10 mg PO TID #0 06/27/18 Melatonin 3 mg PO HS #30 tablet 06/27/18 Quetiapine Fumarate [Seroquel] 12.5 mg PO BID #30 tablet 06/28/18 Allergies Allergy/AdvReac Type Severity Reaction Status Date / Time mannitol [From Reclast] Allergy Hives Verified 04/20/17 11:48 zoledronic acid Allergy Hives Verified 04/20/17 11:48 [From Reclast] adhesive tape AdvReac Rash Verified 04/20/17 11:48 aspirin AdvReac Nausea Verified 04/20/17 11:48 cephalexin [From Keflex] AdvReac STOMACH Verified 04/20/17 11:48 UPSET codeine AdvReac Abdominal Verified 04/20/17 11:48 Pain Iodinated Contrast Media AdvReac Hives AND Verified 04/20/17 11:48 BREATHING ISSUES Review of Systems: In addition to that documented in the HPI above, the additional ROS was obtained: Constitutional: Denies fevers or chills Eyes: Denies vision changes ENMT: Denies sore throat CV: Denies chest pain Resp: Denies SOB GI: Denies vomiting or diarrhea : Denies painful urination MSK: Denies recent trauma Skin: Denies new rashes Neuro: Denies new numbness or tingling Reports new weakness and inability to ambulate due to pain Endocrine: Denies unexpected weight loss Heme: Denies bleeding disorders Past Medical History - Past Medical History Attestation: Yes The following information was validated with the patient. Medical history: Reports: arthritis, atrial fibrillation, CHF, COPD, coronary artery disease, DVT, GERD, hyperlipidemia, hypertension, migraine, myocardial infarction, osteoporosis, RA, renal disease, other Surgical history: Reports: appendectomy, colectomy, orthopedic, other, pa salome/TAVO, other Psychiatric history: Reports: no psych history CAN HANDLER history: Reports: no CAN HANDLER history - Social History Smoking Status: Never smoker Smokeless Tobacco Status: No Alcohol use: Reports: none Drug use: Reports: none Physical Exam General: A&O x 3. No acute distress. Appears uncomfortable. Well developed, well nourished. Head: atraumatic, normocephalic. ENT: No conjunctival injection, no scleral icterus. PERRLA. EOMI. Oropharynx non- erythematous. mucous membranes moist. Neuro: No focal deficits, no speech deficit, no facial droop, mentating well. BUE/BLE Str 5/5. Pulm: Lungs CTAB A/P. No wheezes, rales, ronchi. Cardio: RRR no m/r/g. Chest not tender to palpation. Abd: Soft, non-distended. Normoactive bowel sounds. Non-tender to palpation. No guarding. Non rigid. Back: Pt has tenderness to palpation of piriformis tender point. Extremities: Radial pulses 2+ trell, dorsalis pedis/posterior tibialis 2+ trell. No LE edema. No cyanosis, clubbing. Skin: warm, dry, intact. No rashes. Psych: Appropriate mood and affect. Answers questions appropriately. Cooperative with exam. - General Limitations: no limitations General appearance: alert, in no apparent distress Course Vital Signs Temperature 98.8 F 12/25/18 18:10 Pulse Rate 67 12/25/18 18:10 Respiratory Rate 20 12/25/18 18:10 Blood Pressure 141/99 12/25/18 18:10 O2 Sat by Pulse Oximetry 96 12/25/18 18:10 Temperature 98.8 F 12/25/18 18:10 Pulse Rate 60 12/25/18 20:41 Respiratory Rate 16 12/25/18 20:41 Blood Pressure 151/88 12/25/18 20:41 O2 Sat by Pulse Oximetry 96 12/25/18 20:41 Oxygen Delivery Oxygen Delivery Room Air Back Pain/Injury - MDM Narrative Medical decision making narrative: 8-year-old female with a past medical history of chronic back pain, multiple sclerosis, chronic neck pain, reports increasing back pain that radiates down her left leg all the way to her calf. Patient states she has been unable to ambulate over the last couple of days. She reports that she has been urinating on herself because she is unable to go to the bathroom. She states she has had to be admitted to the hospital before because she cannot longer walk. Patient states she takes 7.5 mg of oxycodone twice a day and this has not been helping. She reports she also tried taking an extra one last night which did not help. Patient states she came in today because she is unable to sit. I performed oh mL on the patient which did not seem to improve her symptoms significantly. We will give her Toradol, and apply lidocaine patch. After administration of medications we attempted to ambulate the patient she was unable to walk at all. She was able to stand up from her bed but could not take any steps. We will obtain some basic laboratory evaluation and get a x-ray of her lumbar spine and admitted to the hospitalist. 2304: Patient was admitted to the hospitalist Dr. Correa who agreed to accept the patient to his service after a lumbar CT. Lumbar CT did not show any acute findings it did show chronic lumbar degenerative joint disorder. She was stable at time of disposition. - Medical Records Medical records reviewed: Yes I reviewed the patient's medical records. - Lab Data Lab results reviewed: Yes I reviewed the patient's lab results. Result diagrams: 12/25/18 22:00 12/25/18 22:00 Lab Results 12/25/18 12/25/18 Range/Units 22:00 22:00 WBC 6.0 (4.3-11.1) K/mcL RBC 3.58 L (3.82-4.97) M/mcL Hgb 11.5 (11.5-15.4) g/dL Hct 37.1 (35.3-44.9) % MCV 103.6 H (83.0-100.0) fL MCH 32.1 (28.0-33.3) pg MCHC 31.0 L (31.6-35.5) g/dL RDW 13.6 (11.5-14.5) % Plt Count 169 (140-400) K/mcL MPV 10.2 (9.4-12.4) fL Immature Gran % 0.3 (0-4) % Seg Neutrophils % 65.5 % Lymphocytes % 21.3 % Monocytes % 10.7 % Eosinophils % 1.7 % Basophils % 0.5 % Neutrophils # 3.9 (1.6-8.9) K/mcL Lymphocytes # 1.3 (0.6-4.6) K/mcL Monocytes # 0.6 (0.0-1.3) K/mcL Eosinophils # 0.1 (0.0-0.6) K/mcL Basophils # 0.0 (0.0-0.2) K/mcL Sodium 142 (136-145) mEq/L Potassium 4.1 (3.5-5.1) mEq/L Chloride 111 H (98-107) mEq/L Carbon Dioxide 24 (23-29) mEq/L BUN 30 H (8-23) mg/dL Creatinine 1.34 H (0.60-1.20) mg/dL Est GFR ( Amer) 48 L (> 60) Est GFR (Non-Af Amer) 39 L (> 60) BUN/Creatinine Ratio 22 (6-26) Glucose 75 (70-105) mg/dL Calculated Osmolality 299 (280-300) Calcium 8.9 (8.6-10.3) mg/dL - Radiology Data Radiology results reviewed: Yes I reviewed the patient's radiology results. Lumbar Spine X-Ray 12/25/18 21:37 IMPRESSION: No change in the alignment. Multilevel degenerative change No acute osseous abnormality D/ / Stefan Green / Stefan Green Interpreting Provider: Stefan Green Lumbar Spine CT 12/25/18 22:31 IMPRESSION: 1. No acute lumbar spine abnormality 2. Chronic bilateral L5 pars defects and grade 1 anterolisthesis of L5 on S1. 3. Multilevel degenerative disc disease most pronounced at L3-4 and L5-S1 to a severe degree. D/ / Orlando Enrique MD / Orlando Enrique MD Interpreting Provider: Orlando Enrique MD Attestation Statement - Attestation Attestation: Patient was seen with resident physician. I reviewed the history, physical, assessment and plan, and agree with the findings. I also personally evaluated this patient and had [id number] time with this patient. 68-year-old female presents emergency Department with back pain and sciatica. Patient has history of same. No specific injury. Pains on the left side radiates down the left leg. She had difficult time ambulating so she contacted EMS and was brought to the emergency department for evaluation. Review systems as above remainder negative. Physical exam vital signs are stable. ENT is unremarkable. Heart regular rhythm and rate. Lungs clear. Abdomen is soft and nontender. Extremities unremarkable. Neurologically intact. loop tender palpation of the left lower l umbar area. ED course. Patient was given Toradol and a lidocaine patch. Tylenol and then was performed and that improved her symptoms. Hemodynamically she was stable throughout her stay. We attempted to ambulate to determine if she needed admitted. She failed ambulation. We called the hospitalist service and wanted a CT scan. This was performed and revealed DJD but otherwise no acute findings. They agreed to accept the patient from admission. She said she has continuation of pain. She will be admitted for control of pain PT and OT. Agree with the resident physician assessment and plan.
[2018-12-25] MEDS ORDERED: Ketorolac 15 MG/ML VIAL IM ONE (18:28)
[2018-12-25 22:11] LABS: Basophils % 0.5 %; Eosinophils # 0.1 K/mcL (0.0-0.6); Eosinophils % 1.7 %; Hematocrit 37.1 % (35.3-44.9); Hemoglobin 11.5 g/dL (11.5-15.4); Immature Granulocytes % 0.3 % (0-4); Lymphocytes # 1.3 K/mcL (0.6-4.6); Lymphocytes % 21.3 %; Mean Corpuscular Hemoglobin 32.1 pg (28.0-33.3); Mean Corpuscular Volume 103.6 fL (83.0-100.0); Mean Platelet Volume 10.2 fL (9.4-12.4); Monocytes # 0.6 K/mcL (0.0-1.3); Monocytes % 10.7 %; Neutrophils # 3.9 K/mcL (1.6-8.9); Platelet Count 169 K/mcL (140-400); Red Blood Count 3.58 M/mcL (3.82-4.97); Red Cell Distribution Width 13.6 % (11.5-14.5); Segmented Neutrophils % 65.5 %
[2018-12-25 22:36] LABS: Calcium 8.9 mg/dL (8.6-10.3); Potassium 4.1 mEq/L (3.5-5.1)
[2018-12-26] MEDS ORDERED: tiZANidine 4 MG TABLET PO PRN (01:22)
[2018-12-26] MEDS ORDERED: traMADol 50 MG TABLET PO PRN (01:23)
[2018-12-26] MEDS ORDERED: Acetaminophen 325 MG TABLET PO PRN (01:23)
[2018-12-26] MEDS ORDERED: Naloxone 0.4 MG/ML INJ IVP PRN (01:23)
[2018-12-26] MEDS ORDERED: Ondansetron 4 MG/2 ML VIAL IVP PRN (01:23)
--- NOTE | 2018-12-26 01:49 | Internal Med History&Physical ---
Date of Encounter: 12/26/18 Time of Encounter: 00:45 Internal Medicine - H&P: HPI Chief complaint: Bilateral Leg Weakness Admitted From: Emergency Dept Plans for Post Hospital Care: Home History of present illness: Ms. Roberts is a 68 year old female w/PMH of arthritis, Afib, osteoporosis, CHF, COPD, CAD, history of DVT 5 years ago, chronic neck pain, MS, GERD, HLD, hypotension, migraine, angina, and hx of one kidney presents from the ED w/CC of worsening bilateral LE weakness over the past two weeks. Patient has hx of MS and takes weekly injections. Last injection was one week ago in her back. Patient reports that she has lost bladder control d/t leg weakness. Patient also reports pain and numbness down her left leg to the calf. States she has never had these sx before. 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 Only left kidney remains. Patient denies recent illness, fever, chills, nausea, vomiting, headache, changes in vision, unusual bleeding, chest pain, shortness of breath, abdominal pain, constipation, diarrhea, dizziness, lightheadedness, pre-syncope, or syncope. Past Med Surg Social Fam HX - Past Medical History Source: patient, old records reviewed Medical history: arthritis, CHF, COPD, coronary artery disease, DVT, GERD, migraine, osteoporosis, RA, other Additional medical history: MS, sciatica, hypotension, angina Psychiatric history: no psych history - Past Surgical History Surgical History: appendectomy, colectomy, orthopedic, other, pacemaker/AICD, other Additional surgical history: nephrectomy (right) - Social History Smoking Status: Former smoker Packs per day: <1 PPD - Reports quitting 45 years ago Smokeless Tobacco Status: No Alcohol use: none Drug use: none Current living situation: Home Activity Level: Uses cane/walker Recent Out of Country Travel Within the Last 8 Weeks: No Exposure or Possible Exposure to Illness During Travel: No - Family History Mother Race: Family Member Ethnicity: Non- Living Status: Cause of : Suicide Hx Family Cardiac Disorders: Yes (Hypertension) Hx Family Cancer: Yes (Breast) Hx Family Endocrine Disorder: Yes (Diabetes) Father Race: Family Member Ethnicity: Non- Living Status: Age at : 72 Cause of : Cancer (Metastatic) Hx Family Cardiac Disorders: Yes (CAD) Hx Family Cancer: Yes (Colon cancer) Hx Family Endocrine Disorder: Yes (Diabetes) Brother Race: Family Member Ethnicity: Non- Living Status: Still Living Hx Family Cancer: Yes (Colon) Hx Family Endocrine Disorder: Yes (DM) Sister Race: Family Member Ethnicity: Non- Living Status: Still Living Hx Family Cardiac Disorders: Yes (CAD) Internal Medicine - H&P: Meds Albuterol Sulfate [Proventil Inhaler] 2 puff IH Q4H PRN 11/04/15 [History] Pramipexole [Mirapex] 0.5 mg PO DAILY #30 tablet 11/12/15 [Rx] Nitroglycerin [Nitrostat] 0.4 mg SL Q5M PRN 03/11/17 [History] Oxycodone HCl/Acetaminophen [Percocet 7.5-325 mg Tablet] 1 tab PO TID PRN MDD 3 03/11/17 [History] Tizanidine HCl 4 mg PO Q8H PRN 04/20/17 [History] Pantoprazole Sodium [Protonix] 40 mg PO DAILY 10/01/17 [History] Cyanocobalamin (B-12) [Vitamin B12] 1,000 mcg PO DAILY #20 tablet 10/03/17 [Rx] Armodafinil 200 mg PO DAILY 04/11/18 [History] Cholecalciferol (D-3) [Vitamin D] 1,000 unit PO DAILY 04/11/18 [History] Atorvastatin Calcium [Lipitor] 20 mg PO QPM 05/22/18 [History] Apixaban [Eliquis] 5 mg PO BID #60 tablet 05/26/18 [Rx] Ferrous Sulfate 325 mg PO BID 06/24/18 [History] Fluticasone Propionate Nasal [Flonase] 2 spray NS BID 06/24/18 [History] Venlafaxine [Effexor] 75 mg PO DAILY 06/24/18 [History] predniSONE [PredniSONE] 10 mg PO DAILY 06/24/18 [History] Baclofen 10 mg PO TID #0 06/27/18 [Rx] Melatonin 3 mg PO HS #30 tablet 06/27/18 [Rx] Quetiapine Fumarate [Seroquel] 12.5 mg PO BID #30 tablet 06/28/18 [Rx] ARIPiprazole [Abilify] 5 mg PO DAILY 07/12/18 [History] Allergy/AdvReac Type Severity Reaction Status Date / Time mannitol [From Reclast] Allergy Hives Verified 04/20/17 11:48 zoledronic acid Allergy Hives Verified 04/20/17 11:48 [From Reclast] adhesive tape AdvReac Rash Verified 04/20/17 11:48 aspirin AdvReac Nausea Verified 04/20/17 11:48 cephalexin [From Keflex] AdvReac STOMACH Verified 04/20/17 11:48 UPSET codeine AdvReac Abdominal Verified 04/20/17 11:48 Pain Iodinated Contrast Media AdvReac Hives AND Verified 04/20/17 11:48 BREATHING ISSUES All Systems PM: A 10-system review of systems was performed and is negative for pertinent findings except as documented above in the HPI. - Constitutional Constitutional: as per HPI, weakness (Bilateral LEs), no chills, no fever(s), no night sweats - EENT Eyes: no change in vision, no discharge, no pain, no photophobia Ears: no ear discharge, no ear pain, no tinnitus Nose, mouth and throat: no dysphagia, no nasal discharge, no neck pain, no sore throat - Breasts Breasts: as per HPI - Cardiovascular Cardiovascular ROS IM: no chest pain, no diaphoresis, no dyspnea, no lightheadedness, no palpitations, no syncope - Respiratory Respiratory: no cough, no dyspnea, no wheezing, no excessive phlegm production - Gastrointestinal Gastrointestinal: no abdominal pain, no diarrhea, no hematemesis, no hematochezia, no melena, no nausea, no vomiting - Genitourinary Genitourinary: no change in urinary stream, no dysuria, no flank pain, no hematuria Menstruation: as per HPI - Musculoskeletal Musculoskeletal ROS IM: as per HPI, neck pain, no numbness, no tingling - Integumentary Integumentary IM: no rash, no unusual bruising - Neurological Neurological ROS: as per HPI, weakness (Bilateral LEs), no confusion, no convulsions, no focal weakness, no numbness, no tingling, no tremor(s) - Psychiatric Psychiatric: as per HPI - Endocrine Endocrine IM: as per HPI - Hematologic/Lymphatic Hematologic/Lymphatic: no easy bruising - Allergic/Immunologic Allergic/Immunologic: as per HPI - Constitutional Vitals: Temp Pulse Resp BP Pulse Ox 98.1 F 63 16 131/91 98 12/26/18 00:25 12/26/18 00:25 12/26/18 00:25 12/26/18 00:12/26/18 00:25 General appearance: Present: cooperative, mild distress (LE pain and weakness), A&O X 3, pleasant, obese, answers questions appropriately Exam: Patient examined at bedside. Patient reports discomfort on left buttocks and left leg. Unable to left LLE off bed for very long. Able to raise RLE off bed. Pain w/pedal push exercise bilaterally. LLE cold w/weaker pulses when compared to RLE. Possible gout in RLE second toe. Patient denies any other sx or complaints on exam. VS: 98.1F temp, HR 63, RR 16, BP 131/91, SPO2 98% on room air. - Head Head exam: Present: atraumatic, normocephalic - Eye Eye exam: Present: PERRL, conjuntiva pink, sclera anicteric Pupils: Present: PERRL - ENT ENT exam: Present: normal exam - Neck Neck exam general surgery: Present: normal inspection, supple, trachea midline. Absent: lymphadenopathy - Respiratory Respiratory exam: Present: CTAB. Absent: accessory muscle use, rales, rhonchi, wheezes - Cardiovascular Cardiovascular exam: Present: RRR, +S1, +S2. Absent: diastolic murmur, gallop, rubs, systolic murmur - GI/Abdominal GI/Abdominal exam: Present: normal bowel sounds, soft, no peritoneal signs. Absent: distended, tenderness - Rectal Rectal exam: Present: deferred - Additional comments: exam deferred. - Extremities Exam Extremities exam: Present: tenderness (LEs), warm (RLE warm, LLE cold), radial pulses palpable and symmetrical (RLE pulses palpable, LLE pulses weak). Absent: calf tenderness, cyanotic, pedal edema - Back Exam Back exam: Present: normal inspection - Neurological Exam Neurological exam: Present: alert, CN II-XII intact, oriented X3, no focal deficits. Absent: pronater drift, facial droop, speech deficit - Psychiatric Psychiatric exam: Present: normal affect, normal mood - Skin Skin exam: Present: dry, intact Internal Med - H&P Results - Labs CBC & Chem 7: 12/25/18 22:00 12/25/18 22:00 Labs: Short CBC 12/25/18 Range/Units 22:00 WBC 6.0 (4.3-11.1) K/mcL Hgb 11.5 (11.5-15.4) g/dL Hct 37.1 (35.3-44.9) % Plt Count 169 (140-400) K/mcL Neutrophils # 3.9 (1.6-8.9) K/mcL BMP 12/25/18 22:00 Sodium 142 Potassium 4.1 Chloride 111 H Carbon Dioxide 24 BUN 30 H Creatinine 1.34 H Glucose 75 Calcium 8.9 - Impressions ITS Impressions Lumbar Spine X-Ray 12/25/18 21:37 IMPRESSION: No change in the alignment. Multilevel degenerative change No acute osseous abnormality D/ / Stefan Green / Stefan Green Interpreting Provider: Stefan Green Lumbar Spine CT 12/25/18 22:31 IMPRESSION: 1. No acute lumbar spine abnormality 2. Chronic bilateral L5 pars defects and grade 1 anterolisthesis of L5 on S1. 3. Multilevel degenerative disc disease most pronounced at L3-4 and L5-S1 to a severe degree. D/ / Orlando Enrique MD / Orlando Enrique MD Interpreting Provider: Orlando Enrique MD - Diagnostic Studies Other Images Additional comments: Impressions Lumbar Spine X-Ray 12/25/18 21:37 IMPRESSION: No change in the alignment. Multilevel degenerative change No acute osseous abnormality D/ / Stefan Green / Stefan Green Interpreting Provider: Stefan Green Lumbar Spine CT 12/25/18 22:31 IMPRESSION: 1. No acute lumbar spine abnormality 2. Chronic bilateral L5 pars defects and grade 1 anterolisthesis of L5 on S1. 3. Multilevel degenerative disc disease most pronounced at L3-4 and L5-S1 to a severe degree. D/ / Orlando Enrique MD / Orlando Enrique MD Interpreting Provider: Orlando Enrique MD - Assessment and Plan (1) Unable to ambulate Current Visit: Yes Status: Acute Assessment and plan: Acute inability to ambulate over the past two weeks. Patient has hx of MS and takes weekly injections. Last injection was one week ago in her back. Patient reports that she has lost bladder control d/t leg weakness. Patient also reports pain and numbness down her left leg to the calf. States she has never had these sx before. Suspected PAD and sciatica. Neurology consult ordered but not confirmed d/t time of night placed. Day Hospitalist to f/u and confirm consult. Falls/safety precautions. Up with assist only. Bed rest w/bedside commode. PT/OT consults. Pressure reduction mattress ordered. Patient is moderate risk for further morbidity and complications based on current inability to ambulate, suspected PAD and sciatica, hx of MS; and other risk factors and co-morbidities including atrial fibrillation, CHF, CAD, HLD, obesity, and current renal dysfunction. Observation. (2) PAD (peripheral artery disease) Current Visit: Yes Status: Acute Assessment and plan: Acute suspected PAD. LLE cool compared to RLE. KELLEY ordered. Hx of previous DVT. Continue pts. Eliquis. Bilateral Dopplers of LEs ordered. (3) Sciatica Current Visit: Yes Status: Acute Assessment and plan: Acute pain from lower back down the left leg to the calf. No previous dx of sciatica, however current sx suggest sciatica. Left leg is cool compared to right. KELLEY ordered. Falls/safety precautions and up with assist only. Pressure reduction mattress ordered. Neurology consulted but consult needs confirmed in a.m. d/t time placed overnight. Qualifiers: Laterality: left Qualified Code(s): M54.32 - Sciatica, left side (4) Afib Current Visit: Yes Status: Chronic Assessment and plan: Hx of chronic paroxysmal atrial fibrillation. Continuous cardiac telemetry. Continue pts. Eliquis. Qualifiers: Atrial fibrillation type: paroxysmal Qualified Code(s): I48.0 - Paroxysmal atrial fibrillation (5) Diastolic CHF, chronic Current Visit: Yes Status: Chronic Assessment and plan: Hx of chronic diastolic CHF. Currently stable. 1.5L daily fluid restriction. Monitor I&O and daily weight. Continuous cardiac telemetry. (6) Multiple sclerosis Current Visit: Yes Status: Chronic Assessment and plan: Hx of chronic MS. Patient received weekly injections. Last injection was last week. Neurology consult ordered but not confirmed d/t time of night placed. Day Hospitalist to f/u and confirm consult. Falls/safety precautions. Up with assist only. Bed rest w/bedside commode. PT/OT consults. (7) CAD (coronary artery disease) Current Visit: Yes Status: Chronic Assessment and plan: Hx of chronic CAD. Continuous cardiac telemetry. Continue pts. HLD medications. Monitor HTN. Continue pts. Eliquis. Qualifiers: Coronary Disease-Associated Artery/Lesion type: [place] artery [place] vs. transplanted heart: [place] heart Associated angina: without angina Qualified Code(s): I25.10 - Atherosclerotic heart disease of [place] coronary artery without angina pectoris (8) COPD (chronic obstructive pulmonary disease) Current Visit: Yes Status: Chronic Assessment and plan: Hx of chronic COPD. Stable. Supplemental O2 with titration and SPO2 monitoring. Will add DuoNebs PRN if pt. becomes symptomatic. Qualifiers: COPD type: chronic bronchitis Chronic bronchitis type: simple Qualified Code(s): J41.0 - Simple chronic bronchitis (9) GERD (gastroesophageal reflux disease) Current Visit: Yes Status: Chronic Assessment and plan: Hx of chronic GERD. Continue pts. PO Protonix. Qualifiers: Esophagitis presence: esophagitis presence not specified Qualified Code(s): K21.9 - Gastro-esophageal reflux disease without esophagitis (10) Gout Current Visit: Yes Status: Chronic Assessment and plan: Hx of chronic gout. Painful second toe on LLE. Uric acid level ordered. Qualifiers: Gout site: multiple sites Gout etiology: idiopathic Chronicity: chronic Presence of tophus: without tophus Qualified Code(s): M1A.09X0 - Idiopathic chronic gout, multiple sites, without tophus (tophi) (11) History of nephrectomy, unilateral Current Visit: Yes Status: Chronic Assessment and plan: Hx of nephrectomy. 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 Only left kidney remains. Will use IV fluids judiciously and avoid nephrotoxins. Monitor I&O. (12) History of DVT (deep vein thrombosis) Current Visit: Yes Status: Resolved Assessment and plan: Hx of previous DVT. Continue pts. Eliquis. (13) DVT prophylaxis Current Visit: Yes Status: Acute Assessment and plan: Continue pts. Eliquis for DVT prophylaxis. Monitor pt. for signs of bleeding. - Time Spent With Patient Total time spent is greater than 50% in coordination of care (as documented) at patient's floor/unit and/or counseling patient: Greater than 35 minutes
[2018-12-26 06:29] LABS: Hemoglobin 10.4 g/dL (11.5-15.4); Mean Corpuscular HGB Conc 31.5 g/dL (31.6-35.5); Mean Corpuscular Hemoglobin 32.4 pg (28.0-33.3); Mean Corpuscular Volume 102.8 fL (83.0-100.0); Mean Platelet Volume 10.5 fL (9.4-12.4); Platelet Count 154 K/mcL (140-400); Red Blood Count 3.21 M/mcL (3.82-4.97); Red Cell Distribution Width 13.8 % (11.5-14.5); White Blood Count 4.5 K/mcL (4.3-11.1)
[2018-12-26 06:51] LABS: Calcium 8.9 mg/dL (8.6-10.3); Chol/HDL Ratio 2.4 (0-4.9); Magnesium 2.1 mg/dL (1.6-2.6); Potassium 4.3 mEq/L (3.5-5.1)
[2018-12-26] MEDS ORDERED: Apixaban 5 MG TABLET PO SCH (09:00)
--- NOTE | 2018-12-26 09:07 | Neurology - Consult Note ---
<Mike Bey J - Last Filed: 12/26/18 16:26> Date of Encounter: 12/26/18 Time of Encounter: 09:00 Assessment and Plan (1) Sciatica Current Visit: Yes Status: Acute Patient with known history of sciatica Multilevel degenerative disc disease demonstrated on lumbar spine CT; most pronounced at L3-4 and L5-S1 to severe degree Presents with a 2-week h/o lower back and left leg pain getting progressively worse; reporting left leg pain causing ambulatory difficulty but denies any leg weakness The patient denies any saddle anesthesia and/or fecal/urinary incontinence; does admits to loss of urine d/t inability to ambulate to bathroom in time but she is able to feel the urge to urinate. low suspicion for cauda equina as cause of weakness The etiology of her symptoms is most likely due to sciatica with radiculopathic presentation of low back pain with radiation to left leg and the sharp nature of the pain exacerbated by weight bearing and ROM Plan: c/w current pain management measures with opiates and muscle relaxants Rec PT/OT evaluation Self care measures discussed with alternating ice and heat Qualifiers: Laterality: left Qualified Code(s): M54.32 - Sciatica, left side (2) Ambulatory dysfunction Current Visit: Yes Status: Acute History of Present Illness Chief complaint: Left leg weakness HPI: Ms. Roberts is a 68 year old female with a PMH of arthritis, A. fib, CHF, COPD, CAD, DVT, GERD, HLD, HTN, migraines, previous MA, osteoporosis, RA, chronic kidney disease and reported MS diagnosed in 1984. She presents with concerns f or low back pain and left leg pain getting progressively worse over the last 2 weeks. She notes that approximately 48-72 hours ago she began having difficulty ambulating due to back and leg pain. She states "my left leg does not really feel that weak but I cannot put any weight on it or move it very well due to the pain". She denies any sensory loss including saddle anesthesia, fecal or urinary incontinence, focal weakness, dizziness, chest pain, dyspnea, palpitations, nausea/vomiting/diarrhea, weight loss, night sweats, fatigue. She denies any recent falls or traumas. She states that she was diagnosed with MS in [address] Ruiz but she is unsure of how her MS is being managed or by whom currently. I reviewed past records and found an MRI of the head from 2017 which did not appear to show any MS plaques. Since admission given low back pain she has had a CT of the lumbar spine which was negative for acute lumbar spine abnormalities but did show chronic bilateral L5 pars defects and grade 1 anterior listhesis of L5 on S1 and multilevel degenerative disc disease most pronounced at L3-4 and L5-S1-1 severe degree. Vital signs are stable and can injury panel revealed stable CKD. Past Med Surg Social Fam HX - Past Medical History Medical history: arthritis, CHF, COPD, coronary artery disease, DVT, GERD, migraine, osteoporosis, RA, other Additional medical history: MS, sciatica, hypotension, angina Psychiatric history: no psych history - Past Surgical History Surgical History: appendectomy, colectomy, orthopedic, other, pacemaker/AICD, other Additional surgical history: nephrectomy (right) - Social History Smoking Status: Former smoker Packs per day: <1 PPD - Reports quitting 45 years ago Smokeless Tobacco Status: No Alcohol use: none Drug use: none - Family History Mother Race: Family Member Ethnicity: Non- Living Status: Cause of : Suicide Hx Family Cardiac Disorders: Yes (Hypertension) Hx Family Cancer: Yes (Breast) Hx Family Endocrine Disorder: Yes (Diabetes) Brother Race: Family Member Ethnicity: Non- Living Status: Still Living Hx Family Cancer: Yes (Colon) Hx Family Endocrine Disorder: Yes (DM) Sister Race: Family Member Ethnicity: Non- Living Status: Still Living Hx Family Cardiac Disorders: Yes (CAD) Father Race: Family Member Ethnicity: Non- Living Status: Age at : 72 Cause of : Cancer (Metastatic) Hx Family Cardiac Disorders: Yes (CAD) Hx Family Respiratory Disorders: No Hx Family Cancer: Yes (Colon cancer) Hx Family GI Disorders: No Hx Family Endocrine Disorder: Yes (Diabetes) Hx Family Neuromuscular Disorders: No Hx Family Neurologic Disorders: No Hx Family HEENT Disorders: No Hx Family Autoimmune Disorders: No Medications and Allergies Albuterol Sulfate [Proventil Inhaler] 2 puff IH Q4H PRN 11/04/15 [History] Pramipexole [Mirapex] 0.5 mg PO DAILY #30 tablet 11/12/15 [Rx] Nitroglycerin [Nitrostat] 0.4 mg SL Q5M PRN 03/11/17 [History] Oxycodone HCl/Acetaminophen [Percocet 7.5-325 mg Tablet] 1 tab PO TID PRN MDD 3 03/11/17 [History] Tizanidine HCl 4 mg PO Q8H PRN 04/20/17 [History] Pantoprazole Sodium [Protonix] 40 mg PO DAILY 10/01/17 [History] Cyanocobalamin (B-12) [Vitamin B12] 1,000 mcg PO DAILY #20 tablet 10/03/17 [Rx] Armodafinil 200 mg PO DAILY 04/11/18 [History] Cholecalciferol (D-3) [Vitamin D] 1,000 unit PO DAILY 04/11/18 [History] Atorvastatin Calcium [Lipitor] 20 mg PO QPM 05/22/18 [History] Apixaban [Eliquis] 5 mg PO BID #60 tablet 05/26/18 [Rx] Ferrous Sulfate 325 mg PO BID 06/24/18 [History] Fluticasone Propionate Nasal [Flonase] 2 spray NS BID 06/24/18 [History] Venlafaxine [Effexor] 75 mg PO DAILY 06/24/18 [History] predniSONE [PredniSONE] 10 mg PO DAILY 06/24/18 [History] Baclofen 10 mg PO TID #0 06/27/18 [Rx] Melatonin 3 mg PO HS #30 tablet 06/27/18 [Rx] Quetiapine Fumarate [Seroquel] 12.5 mg PO BID #30 tablet 06/28/18 [Rx] ARIPiprazole [Abilify] 5 mg PO DAILY 07/12/18 [History] Allergy/AdvReac Type Severity Reaction Status Date / Time mannitol [From Reclast] Allergy Hives Verified 04/20/17 11:48 zoledronic acid Allergy Hives Verified 04/20/17 11:48 [From Reclast] adhesive tape AdvReac Rash Verified 04/20/17 11:48 aspirin AdvReac Nausea Verified 04/20/17 11:48 cephalexin [From Keflex] AdvReac STOMACH Verified 04/20/17 11:48 UPSET codeine AdvReac Abdominal Verified 04/20/17 11:48 Pain Iodinated Contrast Media AdvReac Hives AND Verified 04/20/17 11:48 BREATHING ISSUES All Systems: The remainder of the systems were reviewed and are negative Review of Systems: REVIEW OF SYSTEMS GENERAL: Negative for any nausea, vomiting, fevers, chills, or weight loss, fatigue NEUROLOGIC: Negative for any blurry vision, blind spots, double vision, facial asymmetry, dysphagia, dysarthria, hemiparesis, hemisensory deficits, vertigo, tingling, numbness, unilateral weakness or numbness/tingling Positive-ambulatory dysfunction CARDIAC: Negative for any chest pain, dyspnea, palpitations GASTROINTESTINAL: Negative for any abdominal pain, nausea, vomiting, diarrhea or fecal incontinence GENITOURINARY: Negative for any dysuria, hematuria, or urinary incontinence. MUSCULOSKELETAL: Positive-lower back pain greater on the left side with pain radiating into the left leg exacerbated by activity and weightbearing The remainder of the review of systems reviewed and found to be negative Physical Examination - Vital Signs Vital Signs: Initial Vital Signs Temp Pulse Resp BP Pulse Ox 98.8 F 67 20 141/99 96 12/25/18 18:10 12/25/18 18:10 12/25/18 18:10 12/25/18 18:10 12/25/18 18:10 - Exam Exam: Examination: General Examination: *CONSTITUTIONAL: Alert and oriented x3, no acute distress *GENERAL APPEARANCE OF PATIENT appears healthy and well groomed *EYES: pupils equal, round, reactive to light and accommodation, conjunctiva clear without masses or ulcerations, fundi normal. *CARDIOVASCULAR: no peripheral edema, distal temperature normal, dorsalis pedis pulses normal. Refer to vital signs * MUSCULOSKELETAL: *GAIT AND STATION: Deferred *ASSESSMENT OF MUSCLE STRENGTH IN THE UPPER AND LOWER EXTREMITIES bila teral deltoid, bicep, tricep, animal care taker strength, hip flexors ,anterior tibialis, dorsoflexion of the foot 4/5 *MUSCLE TONE IN THE UPPER AND LOWER EXTREMITIES normal. No abnormal movements, fasciculations or atrophy identified. Neurological: *ORIENTATION to person, situation, time and place *LANGUAGE AND FUNCTION no significant aphasia or dysarthia was noted. *ATTENTION AND CONCENTRATION are normal *LANGUAGE FUNCTION no significant aphasia or dysarthia was noted. *FUND OF KNOWLEDGE aware of current events, past history, vocabulary *MENTAL attention span and concentration normal. *CN II optic fundi were normal, no papilledema noted. *CN III,IV, PERRLA extraocular eye movements were full, no nystagmus and no ptosis noted. *CN V shows normal sensation and jaw opens symmetrically. *CN VII shows normal facial movement symmetrically, upper and lower bilaterally. *CN VIII shows no significant hearing loss on exam *CN IX-X palate elevated symmetrically *CN XI normal strength in the sternocleidomastoid muscles, symmetrical shoulder shrugging. *CN XII tongue protruded in the midline, with normal strength and movement. *SENSORY EXAMINATION light touch intact *REFLEXES: deep tendon reflexes were normal and symmetrical , grade 1/4 diffusely, no pathological reflexes were noted. *CEREBELLAR TESTING normal finger to nose *PAIN LEVEL 5/10 Results - Laboratory Findings CBC and BMP: 12/26/18 05:17 12/26/18 05:17 Abnormal lab findings: Abnormal lab results RBC 3.21 M/mcL (3.82-4.97) L 12/26/18 05:17 Hgb 10.4 g/dL (11.5-15.4) L 12/26/18 05:17 Hct 33.0 % (35.3-44.9) L 12/26/18 05:17 MCV 102.8 fL (83.0-100.0) H 12/26/18 05:17 MCHC 31.5 g/dL (31.6-35.5) L 12/26/18 05:17 Chloride 111 mEq/L (98-107) H 12/26/18 05:17 BUN 29 mg/dL (8-23) H 12/26/18 05:17 Creatinine 1.23 mg/dL (0.60-1.20) H 12/26/18 05:17 Est GFR ( Amer) 52 (> 60) L 12/26/18 05:17 Est GFR (Non-Af Amer) 43 (> 60) L 12/26/18 05:17 - Diagnostic Findings Additional findings: CT/CT lumbar spine wo con IMPRESSION: 1. No acute lumbar spine abnormality 2. Chronic bilateral L5 pars defects and grade 1 anterolisthesis of L5 on S1. 3. Multilevel degenerative disc disease most pronounced at L3-4 and L5-S1 to a severe degree. Consult Discharge Plan - Plan Referrals: Addy Fraire MD [Primary Care Provider] - <Don Nguyễn - Last Filed: 12/26/18 16:44> Date of Encounter: 12/26/18 Assessment and Plan (1) Sciatica Current Visit: Yes Status: Acute I have personally performed a [id number] assessment of the patient and have reviewed the PA/SENIOR BUDGET ANALYST note. My impressions are as follows: I agree with the assessment and plan as stated above by the FAMILY HELPER. Her symptoms seem to be more radicular than anything else and lateralized to the left. Seems reasonable that she could have L4-L5 or L5-S1 radiculopathy. We anticipate CT myelogram with further recommendations to follow. Qualifiers: Laterality: left Qualified Code(s): M54.32 - Sciatica, left side (2) Ambulatory dysfunction Current Visit: Yes Status: Acute History of Present Illness HPI: Chart was reviewed, patient was seen and examined along with FAMILY HELPER. I agree with his documentation of the history of present illness as outlined above. Patient does have radicular symptoms involved left back radiating into the left hip posterior thigh and left gastroc. At this time I am unable to reaffirm her diagnosis of multiple sclerosis. However I believe it is unrelated to this case in any regard and can be done as an outpatient. All Systems: The remainder of the systems were reviewed and are negative Review of Systems: The balance of the systems review is negative. Physical Examination - Vital Signs Vital Signs: Initial Vital Signs Temp Pulse Resp BP Pulse Ox 98.8 F 67 20 141/99 96 12/25/18 18:10 12/25/18 18:10 12/25/18 18:10 12/25/18 18:10 12/25/18 18:10 - Exam Exam: I have personally performed a [id number] assessment of the patient and have reviewed the PA/SENIOR BUDGET ANALYST note. My impressions are as follows: Patient does have positive straight leg raising on the left. She also has giveaway weakness of the muscles on the left above the knee. She has some give way weakness of the left tibialis anterior. I will she has a fentanyl weakness of the left gastroc. Otherwise she has normal strength of the right lower extremity and both upper extremities. I agree with the findings outlined above in the neurologic exam. Results - Laboratory Findings CBC and BMP: 12/26/18 05:17 12/26/18 05:17 Abnormal lab findings: Abnormal lab results RBC 3.21 M/mcL (3.82-4.97) L 12/26/18 05:17 Hgb 10.4 g/dL (11.5-15.4) L 12/26/18 05:17 Hct 33.0 % (35.3-44.9) L 12/26/18 05:17 MCV 102.8 fL (83.0-100.0) H 12/26/18 05:17 MCHC 31.5 g/dL (31.6-35.5) L 12/26/18 05:17 Chloride 111 mEq/L (98-107) H 12/26/18 05:17 BUN 29 mg/dL (8-23) H 12/26/18 05:17 Creatinine 1.23 mg/dL (0.60-1.20) H 12/26/18 05:17 Est GFR ( Amer) 52 (> 60) L 12/26/18 05:17 Est GFR (Non-Af Amer) 43 (> 60) L 12/26/18 05:17
[2018-12-26] MEDS: *HR* HYDROcodone/Acet 5/325 mg TABLET PO PRN ×2 (09:32→16:31)
--- NOTE | 2018-12-26 10:05 | Electrocardiograph Report ---
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
[2018-12-26] MEDS: *HR* OxyCODONE Immed Rel 5 MG TABLET PO PRN ×2 (10:36→21:16)
[2018-12-26] MEDS: Gabapentin 300 MG CAPSULE PO SCH ×2 (14:07→21:16)
[2018-12-26] MEDS: predniSONE 5 MG TABLET PO SCH (14:07)
--- NOTE | 2018-12-26 14:22 | Internal Med Progress Note ---
Hospitalist Progress Note - Encounter Date of Encounter: 12/26/18 Time of Encounter: 14:20 - Subjective Interval History: Patient seen and examined. No acute events overnight. Patient says legs still hurt but better. She clarifies that her urinary trouble is not incontinence but inability to walk to bathroom. Unable to get MRI due to pacemaker. - Exam Vitals: Temp Pulse Resp BP Pulse Ox 98.1 F 61 16 124/80 97 12/26/18 11:42 12/26/18 11:42 12/26/18 11:42 12/26/18 11:42 12/26/18 11:42 Exam: GENERAL APPEARANCE: Well developed, well nourished, alert and cooperative, and appears to be in no acute distress. HEENT: Normocephalic/atraumatic, PERRLA. NECK: Supple, nontender without lymphadenopathy. CARDIOVASCULAR: Normal S1, S2; regular rate and rhythm; no murmurs. RESPIRATORY: Clear to auscultation bilaterally; no rales, rhonchi or wheezing. ABDOMEN: Soft, nondistended, nontender; bowel sounds present. MUSKULOSKELETAL: No limitations in range of motion. EXTREMITIES: No edema, clubbing. NEUROLOGICAL: Lower extremity weakness bilaterlally; no dysarthira; no numbness SKIN: Skin normal color, texture and turgor with no lesions or eruptions. PSYCHIATRIC: Judgment and reasoning; no hallucinations; normal affect. - Assessment and Plan (1) Unable to ambulate Current Visit: Yes Status: Acute Assessment and Plan: Baseline, pt can ambulate History of MS on outpatient treatment with interferon weekly No acute abnormalities on CT Unable to obtain MRI due to pacemaker Plan: f/u neuro recs (2) PAD (peripheral artery disease) Current Visit: Yes Status: Acute Assessment and Plan: Acute suspected PAD. LLE cool compared to RLE. KELLEY ordered. Hx of previous DVT. Continue pts. Eliquis. Bilateral Dopplers of LEs ordered. (3) Sciatica Current Visit: Yes Status: Acute Assessment and Plan: Acute pain from lower back down the left leg to the calf. No previous dx of sciatica, however current sx suggest sciatica. Left leg is cool compared to right. KELLEY ordered. Falls/safety precautions and up with assist only. Pressure reduction mattress ordered. Plan: Neurology on board (4) Afib Current Visit: Yes Status: Chronic Assessment and Plan: Hx of chronic paroxysmal atrial fibrillation. Continuous cardiac telemetry. Continue pts. Eliquis. (5) Diastolic CHF, chronic Current Visit: Yes Status: Chronic (6) Multiple sclerosis Current Visit: Yes Status: Chronic Assessment and Plan: See above (7) CAD (coronary artery disease) Current Visit: Yes Status: Chronic Assessment and Plan: Hx of chronic CAD. Continuous cardiac telemetry. Continue pts. HLD medications. Monitor HTN. Continue pts. Eliquis. (8) COPD (chronic obstructive pulmonary disease) Current Visit: Yes Status: Chronic Assessment and Plan: Hx of chronic COPD. Stable. Supplemental O2 with titration and SPO2 monitoring. Will add DuoNebs PRN if pt. becomes symptomatic. (9) History of nephrectomy, unilateral Current Visit: Yes Status: Chronic Assessment and Plan: Hx of nephrectomy. 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 Only left kidney remains. Will use IV fluids judiciously and avoid nephrotoxins. Monitor I&O. (10) History of DVT (deep vein thrombosis) Current Visit: Yes Status: Resolved Assessment and Plan: Hx of previous DVT. Continue pts. Eliquis. (11) DVT prophylaxis Current Visit: Yes Status: Acute Assessment and Plan: Continue pts. Eliquis for DVT prophylaxis. Monitor pt. for signs of bleeding. - Time Spent with Patient Total time spent is greater than 50% in coordination of care (as documented) at patient's floor/unit and/or counseling patient: 35 minutes Internal Medicine: Result - Labs CBC & Chem 7: 12/26/18 05:17 12/26/18 05:17 Labs: Short CBC 12/25/18 12/26/18 Range/Units 22:00 05:17 WBC 6.0 4.5 (4.3-11.1) K/mcL Hgb 11.5 10.4 L (11.5-15.4) g/dL Hct 37.1 33.0 L (35.3-44.9) % Plt Count 169 154 (140-400) K/mcL Neutrophils # 3.9 (1.6-8.9) K/mcL BMP 12/25/18 12/26/18 22:00 05:17 Sodium 142 142 Potassium 4.1 4.3 Chloride 111 H 111 H Carbon Dioxide 24 26 BUN 30 H 29 H Creatinine 1.34 H 1.23 H Glucose 75 87 Calcium 8.9 8.9 - Impressions Impressions Lumbar Spine X-Ray 12/25/18 21:37 IMPRESSION: No change in the alignment. Multilevel degenerative change No acute osseous abnormality D/ / Stefan Green / Stefan Green Interpreting Provider: Stefan Green Lumbar Spine CT 12/25/18 22:31 IMPRESSION: 1. No acute lumbar spine abnormality 2. Chronic bilateral L5 pars defects and grade 1 anterolisthesis of L5 on S1. 3. Multilevel degenerative disc disease most pronounced at L3-4 and L5-S1 to a severe degree. D/ / Orlando Enrique MD / Orlando Enrique MD Interpreting Provider: Orlando Enrique MD Consult Discharge Plan - Plan Referrals: Addy Fraire MD [Primary Care Provider] - (3) Sciatica Qualifiers: Laterality: left Qualified Code(s): M54.32 - Sciatica, left side (4) Afib Qualifiers: Atrial fibrillation type: paroxysmal Qualified Code(s): I48.0 - Paroxysmal atrial fibrillation (7) CAD (coronary artery disease) Qualifiers: Coronary Disease-Associated Artery/Lesion type: [place] artery [place] vs. transplanted heart: [place] heart Associated angina: without angina Qualified Code(s): I25.10 - Atherosclerotic heart disease of [place] coronary artery without angina pectoris (8) COPD (chronic obstructive pulmonary disease) Qualifiers: COPD type: chronic bronchitis Chronic bronchitis type: simple Qualified Code(s): J41.0 - Simple chronic bronchitis
[2018-12-26] MEDS ORDERED: *HR* Heparin 5,000 UNIT/ML VIAL IVP PRN ×2 (18:47)
[2018-12-26] MEDS ORDERED: *HR* Heparin 5,000 UNIT/ML VIAL IVP ONE (18:47)
[2018-12-26 20:02] LABS: Hematocrit 36.2 % (35.3-44.9); Hemoglobin 11.4 g/dL (11.5-15.4); Mean Corpuscular HGB Conc 31.5 g/dL (31.6-35.5); Mean Corpuscular Volume 101.7 fL (83.0-100.0); Mean Platelet Volume 10.5 fL (9.4-12.4); Platelet Count 169 K/mcL (140-400); Red Blood Count 3.56 M/mcL (3.82-4.97); Red Cell Distribution Width 13.5 % (11.5-14.5); White Blood Count 5.4 K/mcL (4.3-11.1)
[2018-12-26 20:13] LABS: Heparin anti-factor XA UFH 0.54 IU/mL (0.30-0.70); Prothrombin Time 11.8 Seconds (9.4-12.1)
[2018-12-26] MEDS: Melatonin 3 MG TABLET PO PRN (21:17)
[2018-12-26] MEDS: ARIPiprazole 5 MG TABLET PO SCH (21:22)
[2018-12-26] MEDS ORDERED: 0.9 % Sodium Chloride 500 ML ONE (22:43)
[2018-12-26] MEDS: Heparin 25,000 UNIT/250 ML D5W 25,000 UNIT/250 ML IV.SOLN IVC SCH (22:48)
[2018-12-27 05:34] LABS: Hematocrit 35.1 % (35.3-44.9); Hemoglobin 11.2 g/dL (11.5-15.4); Mean Corpuscular HGB Conc 31.9 g/dL (31.6-35.5); Mean Corpuscular Hemoglobin 32.4 pg (28.0-33.3); Mean Corpuscular Volume 101.4 fL (83.0-100.0); Mean Platelet Volume 10.1 fL (9.4-12.4); Platelet Count 156 K/mcL (140-400); Red Blood Count 3.46 M/mcL (3.82-4.97); Red Cell Distribution Width 13.5 % (11.5-14.5); White Blood Count 5.5 K/mcL (4.3-11.1)
[2018-12-27 05:54] LABS: BUN/Creatinine Ratio 31 (6-26); Blood Urea Nitrogen 30 mg/dL (8-23); Calcium 9.1 mg/dL (8.6-10.3); Carbon Dioxide 25 mEq/L (23-29); Chloride 107 mEq/L (98-107); Glucose 93 mg/dL (70-105); Osmolality,Calculated 292 (280-300); Potassium 4.3 mEq/L (3.5-5.1); Sodium 138 mEq/L (136-145); eGFR For African Americans > 60 (> 60); eGFR For Non-African Americans 57 (> 60)
[2018-12-27] MEDS: *HR* HYDROcodone/Acet 5/325 mg TABLET PO PRN (06:12)
[2018-12-27] MEDS ORDERED: Nitroglycerin 0.4 MG TAB.SUBL SL PRN (08:00)
--- NOTE | 2018-12-27 08:44 | Vascular/Endovasc Consult Note ---
Date of Encounter: 12/27/18 Time of Encounter: 08:42 Assessment and Plan (1) Multiple sclerosis Current Visit: Yes Status: Chronic Patient has multiple sclerosis. Patient's left lower extremity pain may be in relation to this. Neurology workup is in progress. (2) Morbid obesity with BMI of 40.0-44.9, adult Current Visit: No Status: Chronic Patient is morbidly obese. (3) DVT (deep venous thrombosis) Current Visit: Yes Status: Acute Patient has incidental finding of bilateral popliteal vein DVT. Patient does not have any obvious etiology for this. This is an unusual finding in light of the fact that the patient states that she has been taking her anticoagulation medicine. Patient has been converted at least temporarily to intravenous heparin. The coolness of the left lower extremity at the foot level is still not totally explain despite the fact that she has a palpable dorsalis pedis pulse. Theref ore recommended that an arterial duplex scan of left lower extremity be performed. Qualifiers: DVT location: lower extremity Affected thrombotic vein of extremity: popliteal Chronicity: acute Laterality: bilateral Qualified Code(s): I82.433 - Acute embolism and thrombosis of popliteal vein, bilateral - History of Present Illness Consult date: 12/27/18 Consult reason: Left leg pain Chief complaint: Left leg pain History of present illness: Ms. Roberts is a 68 year old female Who is admitted to the hospital a few days ago because of left leg pain. She is undergoing workup from a neurologic standpoint. He was noted yesterday afternoon that she had coolness to the left foot. Ankle-brachial index was ordered. This was not able to be obtained because upon evaluation of the leg she was noted to have bilateral acute popliteal vein DVT. Therefore application of the blood pressure cuffs is contraindicated and so an ankle-brachial index could not be measured. Vascular surgery was asked to see the patient. The patient states that beginning about 2 weeks ago she began having significant abrupt onset of left lower extremity pain. The patient states that she went to bed feeling well when she woke up in the morning the pain was present. She describes the pain as beginning at the lower back area and radiating down to the calf and foot. This is primarily on the posterior aspect of the left leg. She denies any right lower extremity symptoms. She denies any previous similar symptoms. She denies any change in her habits or prolonged car travel. She has no past history of trauma to the left lower extremity. She has no past history of arterial manipulation of the left lower extremity. Patient has a somewhat vague history of a clot in the right leg that she states was treated with medication. It is unclear whether this was arterial or venous. Of note the patient is on anticoagulation for chronic atrial fibrillation. Past Med Surg Social Fam HX - Past Medical History Medical history: arthritis, CHF, COPD, coronary artery disease, DVT, GERD, migraine, osteoporosis, RA, other Additional medical history: MS, sciatica, hypotension, angina Psychiatric history: no psych history - Past Surgical History Surgical History: appendectomy, colectomy, orthopedic, other, pacemaker/AICD, other Additional surgical history: nephrectomy (right) - Social History Smoking Status: Former smoker Packs per day: <1 PPD - Reports quitting 45 years ago Smokeless Tobacco Status: No Alcohol use: none Drug use: none - Family History Mother Race: Family Member Ethnicity: Non- Living Status: Cause of : Suicide Hx Family Cardiac Disorders: Yes (Hypertension) Hx Family Cancer: Yes (Breast) Hx Family Endocrine Disorder: Yes (Diabetes) Brother Race: Family Member Ethnicity: Non- Living Status: Still Living Hx Family Cancer: Yes (Colon) Hx Family Endocrine Disorder: Yes (DM) Sister Race: Family Member Ethnicity: Non- Living Status: Still Living Hx Family Cardiac Disorders: Yes (CAD) Father Race: Family Member Ethnicity: Non- Living Status: Age at : 72 Cause of : Cancer (Metastatic) Hx Family Cardiac Disorders: Yes (CAD) Hx Family Respiratory Disorders: No Hx Family Cancer: Yes (Colon cancer) Hx Family GI Disorders: No Hx Family Endocrine Disorder: Yes (Diabetes) Hx Family Neuromuscular Disorders: No Hx Family Neurologic Disorders: No Hx Family HEENT Disorders: No Hx Family Autoimmune Disorders: No Medications and Allergies Albuterol Sulfate [Proventil Inhaler] 2 puff IH Q4H PRN 11/04/15 [History] Pramipexole [Mirapex] 0.5 mg PO DAILY #30 tablet 11/12/15 [Rx] Nitroglycerin [Nitrostat] 0.4 mg SL Q5M PRN 03/11/17 [History] Oxycodone HCl/Acetaminophen [Percocet 7.5-325 mg Tablet] 1 tab PO BID PRN 12/14/17 [History] Tizanidine HCl 4 mg PO Q8H PRN 04/20/17 [History] Pantoprazole Sodium [Protonix] 40 mg PO DAILY 10/01/17 [History] Cyanocobalamin (B-12) [Vitamin B12] 1,000 mcg PO DAILY #20 tablet 10/03/17 [Rx] Armodafinil 200 mg PO DAILY 04/11/18 [History] Cholecalciferol (D-3) [Vitamin D] 1,000 unit PO DAILY 04/11/18 [History] Atorvastatin Calcium [Lipitor] 20 mg PO HS 05/22/18 [History] Apixaban [Eliquis] 5 mg PO BID #60 tablet 05/26/18 [Rx] Fluticasone Propionate Nasal [Flonase] 2 spray NS BID 06/24/18 [History] Venlafaxine [Effexor] 75 mg PO DAILY 06/24/18 [History] Baclofen 10 mg PO TID #0 06/27/18 [Rx] Melatonin 3 mg PO HS #30 tablet 06/27/18 [Rx] ARIPiprazole [Abilify] 5 mg PO HS 07/12/18 [History] Gabapentin [Neurontin] 300 mg PO HS 12/26/18 [History] predniSONE [PredniSONE] 5 mg PO DAILY 12/26/18 [History] Allergy/AdvReac Type Severity Reaction Status Date / Time mannitol [From Reclast] Allergy Hives Verified 12/26/18 21:19 zoledronic acid Allergy Hives Verified 12/26/18 21:19 [From Reclast] adhesive tape AdvReac Rash Verified 12/26/18 21:19 aspirin AdvReac Nausea Verified 12/26/18 21:19 cephalexin [From Keflex] AdvReac STOMACH Verified 12/26/18 21:19 UPSET codeine AdvReac Abdominal Verified 12/26/18 21:19 Pain Iodinated Contrast Media AdvReac Hives AND Verified 12/26/18 21:19 BREATHING ISSUES All Systems Review: The remainder of the systems were reviewed and are negative Exam Vital Signs, Last 4 Hours Temp Pulse Resp BP Pulse Ox 12/27/18 06:28 98.1 F 59 17 131/87 100 General: Present: Conversant, No Apparent Distress HEENT: Present: Atraumatic, Normocephaly, Trachea midline Neck: Absent: JVD, Left Carotid bruit, Right Carotid bruit, Midline deformity, Tracheal deviation Cardiac: Present: Reg Rate and Rhythm, Normal S1 and S2 Lungs: Present: Normal Breath Sounds, No Wheeze, Rales, Rhonchi Neuro: Present: Alert and responsive, No focal deficits noted, Cranial nerves grossly intact Abdomen: Present: Soft, Non-tender, Other (Obese abdomen and obese lower extremities) Vascular: Present: Pulse, normal (Patient has palpable femoral and popliteal and her Burns pedis pulses bilaterally.), Color/Temperature (Patient's left foot is cool to cold. The right foot is warm and pink.). Absent: Bruit (There are no femoral bruits.), Surgical incisions Consult Discharge Plan - Plan Referrals: Addy Fraire MD [Primary Care Provider] -
[2018-12-27] MEDS: predniSONE 5 MG TABLET PO SCH (09:42)
[2018-12-27] MEDS: Baclofen 10 MG TABLET PO SCH ×3 (09:42→20:00)
[2018-12-27] MEDS: Cholecalciferol (D-3) 1,000 UNIT (25MCG) TABLET PO SCH (09:42)
[2018-12-27] MEDS: Gabapentin 300 MG CAPSULE PO SCH ×3 (09:42→20:00)
[2018-12-27] MEDS: Cyanocobalamin (B-12) 1,000 MCG TABLET PO SCH (09:42)
[2018-12-27] MEDS: ARMODAFINIL 200 MG PO SCH (09:43)
[2018-12-27] MEDS: *HR* OxyCODONE/APAP 7.5/325 TABLET PO PRN ×2 (09:48→19:57)
[2018-12-27] MEDS: Fluticasone Propionate Nasal 50 MCG/SPRAY BOTTLE NS SCH ×2 (10:39→20:01)
--- NOTE | 2018-12-27 10:51 | Neurology Progress Note ---
<Mike Bey - Last Filed: 12/27/18 10:47> Date of Encounter: 12/27/18 Time of Encounter: 10:47 Assessment and Plan (1) Sciatica Current Visit: Yes Status: Acute Clinically, patient continues to be stable overnight without any further ne urological impairments. She continues to have left leg radicular symptoms including a sharp shooting pain radiating from the left back down the left buttock and into the posterior left thigh and gastroc muscle. Weakness in the left anterior tibialis and dorsiflexion and plantarflexion of the left foot is persistent. Given CT of the lumbar spine by findings indicated a severe degree of degenerative disc disease at L3-L4 and L5-S1 it is not unreasonable to think that her symptoms are mostly the results of sciatica. Initially, we were recommending CT myelogram were more thorough evaluation however, the patient has declined due to allergies to IVP dye allergy and is refusing even if receiving pretreatment for IVP dye allergy. At this juncture she is agreeable to pain management consultation; maybe she would benefit from spine stimulator or some other intervention. The plan of care has been relayed to the IM team physician Qualifiers: Laterality: left Qualified Code(s): M54.32 - Sciatica, left side (2) Ambulatory dysfunction Current Visit: Yes Status: Acute Subjective Principal diagnosis: Left leg pain; sciatica Interval history: Interpreted, patient seen and examined at bedside today. She continues to report left leg pain and inability to bear weight due to some pain. She has not had any improvement with her current pain management regimen of opiates and muscle relaxants. This morning she is refusing further evaluation with CT myelogram even with pretreatment for IVP dye allergy. She is stating that previously she is still had difficulty breathing even after receiving pretr eatment for IVP dye allergy. I discussed with the patient that we would not be able to fully determine the cause of her discomfort without the CT myelogram however, she continues to decline. She is opting for pain management consultation for further evaluation. Clinically, she is stable without any further neurological deficits, saddle anesthesia, fecal or urinary incontinence and she denies any sensory level. Objective - Constitutional Vitals: Temp Pulse Resp BP Pulse Ox 98.1 F 59 17 131/87 100 12/27/18 06:28 12/27/18 06:28 12/27/18 06:28 12/27/18 06:28 12/27/18 06:28 Exam: Examination: General Examination: *CONSTITUTIONAL: Alert and oriented x3, no acute distress *GENERAL APPEARANCE OF PATIENT appears healthy and well groomed *EYES: pupils equal, round, reactive to light and accommodation, conjunctiva clear without masses or ulcerations, fundi normal. *CARDIOVASCULAR: no peripheral edema, distal temperature normal, dorsalis pedis pulses normal. Refer to vital signs * MUSCULOSKELETAL: *GAIT AND STATION: Deferred *ASSESSMENT OF MUSCLE STRENGTH IN THE UPPER AND LOWER EXTREMITIES bilateral deltoid, bicep, tricep, medical reception specialist strength 4/[address] weakness. Right hip flexors ,anterior tibialis, dorsoflexion of the foot 4/[address] weakness. The left hip flexor is 4/5 however the left anterior ti bialis is 3/5 and she is having difficulty with plantar flexion and dorsiflexion of the left foot 3/5 *MUSCLE TONE IN THE UPPER AND LOWER EXTREMITIES normal. No abnormal movements, fasciculations or atrophy identified. Neurological: *ORIENTATION to person, situation, time and place *LANGUAGE AND FUNCTION no significant aphasia or dysarthia was noted. *ATTENTION AND CONCENTRATION are normal *LANGUAGE FUNCTION no significant aphasia or dysarthia was noted. *FUND OF KNOWLEDGE aware of current events, past history, vocabulary *MENTAL attention span and concentration normal. *CN II optic fundi were normal, no papilledema noted. *CN III,IV, PERRLA extraocular eye movements were full, no nystagmus and no ptosis noted. *CN V shows normal sensation and jaw opens symmetrically. *CN VII shows normal facial movement symmetrically, upper and lower bilaterally. *CN VIII shows no significant hearing loss on exam *CN IX-X palate elevated symmetrically *CN XI normal strength in the sternocleidomastoid muscles, symmetrical shoulder shrugging. *CN XII tongue protruded in the midline, with normal strength and movement. *SENSORY EXAMINATION light touch intact *REFLEXES: deep tendon reflexes were normal and symmetrical , grade 1/4 diffusely, no pathological reflexes were noted. *CEREBELLAR TESTING normal finger to nose *PAIN LEVEL 9/10 Results - Laboratory Findings CBC and BMP: 12/27/18 05:17 12/27/18 05:17 Abnormal lab findings: Abnormal lab results RBC 3.46 M/mcL (3.82-4.97) L 12/27/18 05:17 Hgb 11.2 g/dL (11.5-15.4) L 12/27/18 05:17 Hct 35.1 % (35.3-44.9) L 12/27/18 05:17 MCV 101.4 fL (83.0-100.0) H 12/27/18 05:17 MCHC 31.5 g/dL (31.6-35.5) L 12/26/18 19:25 Heparin Anti-Xa, Unfract 1.08 IU/mL (0.30-0.70) H* 12/27/18 05:17 Chloride 111 mEq/L (98-107) H 12/26/18 05:17 BUN 30 mg/dL (8-23) H 12/27/18 05:17 Creatinine 1.23 mg/dL (0.60-1.20) H 12/26/18 05:17 Est GFR ( Amer) 52 (> 60) L 12/26/18 05:17 Est GFR (Non-Af Amer) 57 (> 60) L 12/27/18 05:17 BUN/Creatinine Ratio 31 (6-26) H 12/27/18 05:17 Consult Discharge Plan - Plan Referrals: Addy Fraire MD [Primary Care Provider] - <Don Nguyễn - Last Filed: 12/27/18 16:33> Date of Encounter: 12/27/18 Assessment and Plan (1) Sciatica Current Visit: Yes Status: Acute I have personally performed a [id number] assessment of the patient and have reviewed the PA/PODIATRIC FOOT AND ANKLE SPECIALIST note. My impressions are as follows: I agree with the assessment and plan as stated above by the WALLPAPER INSPECTOR. I am concerned that without a contrasted CT of the lumbar spine, we are not adequately able to rule out other causes of radiculopathy such as bony metastasis or perhaps other inflammatory processes lesions that can cause mass effect. Otherwise, this would primarily become an issue pain management. We will reassess her tomorrow. 25 minutes was spent with this patient today of which greater than 50% of that time was spent in [id number] contact consisting of counciling and coordinating care. Qualifiers: Laterality: left Qualified Code(s): M54.32 - Sciatica, left side (2) Ambulatory dysfunction Current Visit: Yes Status: Acute Subjective Interval history: Chart reviewed, patient seen and examined independently. Case was discussed with the WALLPAPER INSPECTOR. I agree with his documentation of the history of present illness as stated above. Patient seems to be in a quandary about how to proceed with her care. Unfortunately she is not a candidate for an MRI. She does not wish to have a CT myelogram. Unfortunately, it would be difficult to make a precise diagnosis without at least one of these tests. Her symptoms seem to be primarily radicular. However we will are not available at this time to know specifically what is causing the radiculitis. Objective - Constitutional Vitals: Temp Pulse Resp BP Pulse Ox 98.5 F 77 17 101/65 94 12/27/18 14:34 12/27/18 14:34 12/27/18 14:34 12/27/18 14:34 12/27/18 14:34 Exam: I have personally performed a [id number] assessment of the patient and have reviewed the PA/PODIATRIC FOOT AND ANKLE SPECIALIST note. My impressions are as follows: Patient was seen and examined independently. I agree with the neurologic examination is documented above. Results - Laboratory Findings CBC and BMP: 12/27/18 05:17 12/27/18 05:17 Abnormal lab findings: Abnormal lab results RBC 3.46 M/mcL (3.82-4.97) L 12/27/18 05:17 Hgb 11.2 g/dL (11.5-15.4) L 12/27/18 05:17 Hct 35.1 % (35.3-44.9) L 12/27/18 05:17 MCV 101.4 fL (83.0-100.0) H 12/27/18 05:17 MCHC 31.5 g/dL (31.6-35.5) L 12/26/18 19:25 Heparin Anti-Xa, Unfract 0.83 IU/mL (0.30-0.70) H 12/27/18 13:31 Chloride 111 mEq/L (98-107) H 12/26/18 05:17 BUN 30 mg/dL (8-23) H 12/27/18 05:17 Creatinine 1.23 mg/dL (0.60-1.20) H 12/26/18 05:17 Est GFR ( Amer) 52 (> 60) L 12/26/18 05:17 Est GFR (Non-Af Amer) 57 (> 60) L 12/27/18 05:17 BUN/Creatinine Ratio 31 (6-26) H 12/27/18 05:17
--- NOTE | 2018-12-27 15:21 | Internal Med Progress Note ---
Hospitalist Progress Note - Encounter Date of Encounter: 12/27/18 Time of Encounter: 15:18 - Subjective Interval History: Patient seen and examined. Patient was found to have b/l acute DVT in lower extremities. Patient notes she takes her eliquis every day. She says her pain is about the same. She denies chest pain. - Exam Vitals: Temp Pulse Resp BP Pulse Ox 98.5 F 77 17 101/65 94 12/27/18 14:34 12/27/18 14:34 12/27/18 14:34 12/27/18 14:34 12/27/18 14:34 Exam: GENERAL APPEARANCE: Well developed, well nourished, alert and cooperative, and appears to be in no acute distress. HEENT: Normocephalic/atraumatic, PERRLA. NECK: Supple, nontender without lymphadenopathy. CARDIOVASCULAR: Normal S1, S2; regular rate and rhythm; no murmurs. RESPIRATORY: Clear to auscultation bilaterally; no rales, rhonchi or wheezing. ABDOMEN: Soft, nondistended, nontender; bowel sounds present. MUSKULOSKELETAL: No limitations in range of motion. EXTREMITIES: No edema, clubbing. NEUROLOGICAL: Lower extremity weakness bilaterlally; no dysarthira; no numbness SKIN: Skin normal color, texture and turgor with no lesions or eruptions. PSYCHIATRIC: Judgment and reasoning; no hallucinations; normal affect. - Assessment and Plan (1) PAD (peripheral artery disease) Current Visit: Yes Status: Acute Assessment and Plan: Acute suspected PAD. LLE cool compared to RLE. KELLEY ordered. Hx of previous DVT Found to have b/l acute LE dvts while on eliquis Plan: Vascular on board Switch eliquis to heparin GTT Arterial duplex pending (2) Unable to ambulate Current Visit: Yes Status: Acute Assessment and Plan: Baseline, pt can ambulate History of MS on outpatient treatment with interferon weekly No acute abnormalities on CT Unable to obtain MRI due to pacemaker Neuro wanted CT myelogram but patient refusing due to history of contrast allergy even with pretreatment Plan: neuro has no further recommendations (3) Sciatica Current Visit: Yes Status: Acute Assessment and Plan: Acute pain from lower back down the left leg to the calf. No previous dx of sciatica, however current sx suggest sciatica. Left leg is cool compared to right. KELLEY ordered. Falls/safety precautions and up with assist only. Pressure reduction mattress ordered. Plan: Neurology recommending pain management as OP (4) Afib Current Visit: Yes Status: Chronic Assessment and Plan: Hx of chronic paroxysmal atrial fibrillation Plan: Telemetry Eliquis switched to heparin GTT (5) Diastolic CHF, chronic Current Visit: Yes Status: Chronic Assessment and Plan: Hx of chronic diastolic CHF. Currently stable. 1.5L daily fluid restriction. Monitor I&O and daily weight. Continuous cardiac telemetry. (6) Multiple sclerosis Current Visit: Yes Status: Chronic Assessment and Plan: See above (7) CAD (coronary artery disease) Current Visit: Yes Status: Chronic Assessment and Plan: Hx of chronic CAD. Continuous cardiac telemetry. Continue pts. HLD medications. Monitor HTN. Heparin GTT (8) COPD (chronic obstructive pulmonary disease) Current Visit: Yes Status: Chronic Assessment and Plan: Hx of chronic COPD. Stable. Supplemental O2 with titration and SPO2 monitoring. Will add DuoNebs PRN if pt. becomes symptomatic. (9) History of DVT (deep vein thrombosis) Current Visit: Yes Status: Resolved Assessment and Plan: Hx of previous DVT Now with new DVTs on dopplers despite being on eliquis Plan: Vascular on board (10) DVT prophylaxis Current Visit: Yes Status: Acute Assessment and Plan: Heparin - Time Spent with Patient Total time spent is greater than 50% in coordination of care (as documented) at patient's floor/unit and/or counseling patient: 35 minutes Plan of Care Discussed with: patient Internal Medicine: Result - Labs CBC & Chem 7: 12/27/18 05:17 12/27/18 05:17 Labs: Short CBC 12/26/18 12/27/18 Range/Units 19:25 05:17 WBC 5.4 5.5 (4.3-11.1) K/mcL Hgb 11.4 L 11.2 L (11.5-15.4) g/dL Hct 36.2 35.1 L (35.3-44.9) % Plt Count 169 156 (140-400) K/mcL BMP 12/27/18 05:17 Sodium 138 Potassium 4.3 Chloride 107 Carbon Dioxide 25 BUN 30 H Creatinine 0.97 Glucose 93 Calcium 9.1 - ABG Interpretation ABG results: PT/INR, D-dimer PT 11.8 Seconds (9.4-12.1) 12/26/18 19:25 Consult Discharge Plan - Plan Referrals: Addy Fraire MD [Primary Care Provider] - (3) Sciatica Qualifiers: Laterality: left Qualified Code(s): M54.32 - Sciatica, left side (4) Afib Qualifiers: Atrial fibrillation type: paroxysmal Qualified Code(s): I48.0 - Paroxysmal atrial fibrillation (7) CAD (coronary artery disease) Qualifiers: Coronary Disease-Associated Artery/Lesion type: [place] artery [place] vs. transplanted heart: [place] heart Associated angina: without angina Qualified Code(s): I25.10 - Atherosclerotic heart disease of [place] coronary artery without angina pectoris (8) COPD (chronic obstructive pulmonary disease) Qualifiers: COPD type: chronic bronchitis Chronic bronchitis type: simple Qualified Code(s): J41.0 - Simple chronic bronchitis
[2018-12-27] MEDS: predniSONE 20 MG TABLET PO SCH (19:58)
[2018-12-27] MEDS: Melatonin 3 MG TABLET PO PRN (19:58)
[2018-12-27] MEDS: ARIPiprazole 5 MG TABLET PO SCH (20:01)
[2018-12-27] MEDS: Heparin 25,000 UNIT/250 ML D5W 25,000 UNIT/250 ML IV.SOLN IVC SCH (23:30)
[2018-12-28] MEDS: predniSONE 20 MG TABLET PO SCH ×2 (02:24→10:15)
[2018-12-28 06:38] LABS: Hematocrit 37.1 % (35.3-44.9); Mean Corpuscular HGB Conc 32.3 g/dL (31.6-35.5); Mean Corpuscular Hemoglobin 32.3 pg (28.0-33.3); Platelet Count 168 K/mcL (140-400); Red Blood Count 3.71 M/mcL (3.82-4.97); Red Cell Distribution Width 13.2 % (11.5-14.5); White Blood Count 4.7 K/mcL (4.3-11.1)
[2018-12-28 06:57] LABS: BUN/Creatinine Ratio 32 (6-26); Blood Urea Nitrogen 31 mg/dL (8-23); Calcium 9.1 mg/dL (8.6-10.3); Carbon Dioxide 25 mEq/L (23-29); Chloride 107 mEq/L (98-107); Glucose 149 mg/dL (70-105); Osmolality,Calculated 291 (280-300); Potassium 4.5 mEq/L (3.5-5.1); Sodium 136 mEq/L (136-145); eGFR For African Americans > 60 (> 60); eGFR For Non-African Americans 58 (> 60)
[2018-12-28] MEDS ORDERED: Isovue-370 500 ML BOTTLE IVP ONE ×2 (09:00)
[2018-12-28] MEDS: Baclofen 10 MG TABLET PO SCH ×3 (09:11→21:04)
[2018-12-28] MEDS: Cholecalciferol (D-3) 1,000 UNIT (25MCG) TABLET PO SCH (09:11)
[2018-12-28] MEDS: *HR* OxyCODONE/APAP 7.5/325 TABLET PO PRN ×2 (09:11→21:12)
[2018-12-28] MEDS: Gabapentin 300 MG CAPSULE PO SCH ×3 (09:11→21:03)
[2018-12-28] MEDS: Cyanocobalamin (B-12) 1,000 MCG TABLET PO SCH (09:11)
[2018-12-28] MEDS: predniSONE 5 MG TABLET PO SCH (09:12)
[2018-12-28] MEDS: ARMODAFINIL 200 MG PO SCH (09:13)
--- NOTE | 2018-12-28 10:05 | Neurology Progress Note ---
<Mike Bey J - Last Filed: 12/28/18 10:01> Date of Encounter: 12/28/18 Time of Encounter: 10:02 Assessment and Plan (1) Sciatica Current Visit: Yes Status: Acute Clinically, the patient remains stable without any further deficits developing during this stay and the neurological exam reveals no acute deficits; she does still have mild left leg weakness and difficulty with plantar flexion of the left foot. She reports that the low back pain and left leg pain have improved since admission and today she is able to ambulate throughout the room unassisted. I explained to the patient again that we are unable to adequately rule out the exact cause of radiculopathy such as bony metastasis or some sort of inflammatory lesion without a CT myelogram of the lumbar spine. She verbalizes understanding but notes that she has had 2 severe reactions to IVP dye in the past even with pretreatment does not wish to pursue CT myelogram imaging. Unfortunately, we are unable to get an MRI due to an incompatible pacemaker. At this point we are recommending pain management consultation to see if there would be an intervention to help alleviate her discomfort. We are still recommending PT/OT consultation to evaluate patient's safety to discharge home for independent living given her reported pain with ambulation. Neurology will sign off at this time. Please call should any urgent needs arise. Thank you for consulting [facility]. Qualifiers: Laterality: left Qualified Code(s): M54.32 - Sciatica, left side (2) Ambulatory dysfunction Current Visit: Yes Status: Acute Subjective Principal diagnosis: low back pain, Left leg pain; sciatica Interval history: The chart was reviewed, the patient seen and examined at bedside today. She reports that her low back pain and left leg pain has improved since the administration of steroids. She is also reporting that she is able to ambulate with less discomfort than she was experiencing on admission. No other neurological problems reported and no acute events overnight. She is refusing a CT myelogram due to allergies IVP dye. She denies any further questions in regards to plan of care for low back and leg pain. She is agreeable to pain management consultation. Objective - Constitutional Vitals: Temp Pulse Resp BP Pulse Ox 98.0 F 61 15 144/84 95 12/28/18 07:11 12/28/18 07:11 12/28/18 07:11 12/28/18 07:11 12/28/18 07:11 Exam: Examination: General Examination: *CONSTITUTIONAL: Alert and oriented x3, no acute distress, resting comfortably in bed *GENERAL APPEARANCE OF PATIENT appears healthy and well groomed *EYES: pupils equal, round, reactive to light and accommodation, conjunctiva clear without masses or ulcerations, fundi normal. *CARDIOVASCULAR: no peripheral edema, distal temperature normal, dorsalis pedis pulses normal. Refer to vital signs * MUSCULOSKELETAL: *GAIT AND STATION: She was able to ambulate throughout the room today without assistance but does note some moderate discomfort to the left leg during ambulation. *ASSESSMENT OF MUSCLE STRENGTH IN THE UPPER AND LOWER EXTREMITIES bi lateral deltoid, bicep, tricep, tanner rotary drum continuous process strength 4/[address] weakness. Right hip flexors ,anterior tibialis, dorsoflexion of the foot 4/[address] weakness. The left hip flexor, left anterior tibialis is 4/5 and she continues to have difficulty with plantar flexion and dorsiflexion of the left foot 3/5 *MUSCLE TONE IN THE UPPER AND LOWER EXTREMITIES normal. No abnormal movements, fasciculations or atrophy identified. Neurological: *ORIENTATION to person, situation, time and place *LANGUAGE AND FUNCTION no significant aphasia or dysarthia was noted. *ATTENTION AND CONCENTRATION are normal *LANGUAGE FUNCTION no significant aphasia or dysarthia was noted. *FUND OF KNOWLEDGE aware of current events, past history, vocabulary *MENTAL attention span and concentration normal. *CN II optic fundi were normal, no papilledema noted. *CN III,IV, PERRLA extraocular eye movements were full, no nystagmus and no ptosis noted. *CN V shows normal sensation and jaw opens symmetrically. *CN VII shows normal facial movement symmetrically, upper and lower bilaterally. *CN VIII shows no significant hearing loss on exam *CN IX-X palate elevated symmetrically *CN XI normal strength in the sternocleidomastoid muscles, symmetrical shoulder shrugging. *CN XII tongue protruded in the midline, with normal strength and movement. *SENSORY EXAMINATION light touch intact *REFLEXES: deep tendon reflexes were normal and symmetrical , grade 1/4 diffusely, no pathological reflexes were noted. *CEREBELLAR TESTING normal finger to nose *PAIN LEVEL 4/10 low back and left leg pain Results - Laboratory Findings CBC and BMP: 12/28/18 06:29 12/28/18 06:29 Abnormal lab findings: Abnormal lab results RBC 3.71 M/mcL (3.82-4.97) L 12/28/18 06:29 Hgb 11.2 g/dL (11.5-15.4) L 12/27/18 05:17 Hct 35.1 % (35.3-44.9) L 12/27/18 05:17 MCV 101.4 fL (83.0-100.0) H 12/27/18 05:17 MCHC 31.5 g/dL (31.6-35.5) L 12/26/18 19:25 Heparin Anti-Xa, Unfract 0.83 IU/mL (0.30-0.70) H 12/27/18 13:31 Chloride 111 mEq/L (98-107) H 12/26/18 05:17 BUN 31 mg/dL (8-23) H 12/28/18 06:29 Creatinine 1.23 mg/dL (0.60-1.20) H 12/26/18 05:17 Est GFR ( Amer) 52 (> 60) L 12/26/18 05:17 Est GFR (Non-Af Amer) 58 (> 60) L 12/28/18 06:29 BUN/Creatinine Ratio 32 (6-26) H 12/28/18 06:29 Glucose 149 mg/dL (70-105) H 12/28/18 06:29 Consult Discharge Plan - Plan Referrals: Addy Fraire MD [Primary Care Provider] - <Don Nguyễn - Last Filed: 12/28/18 14:04> Date of Encounter: 12/28/18 Assessment and Plan (1) Sciatica Current Visit: Yes Status: Acute I have personally performed a [id number] assessment of the patient and have reviewed the PA/PERSONAL LINES ADVISOR note. My impressions are as follows: Chart was reviewed, patient was seen and examined independently. The case was discussed with the CODING COMPLIANCE AUDITOR. I concur with his assessment and plan as outlined above. Patient declines a CT myelogram with contrast understanding the potential risks with not knowing specifically what is causing her left-sided back pain which could be neoplasm or other life-threatening etiologies. We will reevaluate her at your request. Qualifiers: Laterality: left Qualified Code(s): M54.32 - Sciatica, left side (2) Ambulatory dysfunction Current Visit: Yes Status: Acute Subjective Interval history: Chart was reviewed, patient was seen and examined independently. Case was discussed with the CODING COMPLIANCE AUDITOR. I concur with his assessment as stated above. Objective - Constitutional Vitals: Temp Pulse Resp BP Pulse Ox 97.9 F 62 16 143/87 91 12/28/18 10:04 12/28/18 10:04 12/28/18 10:04 12/28/18 10:04 12/28/18 10:04 Exam: I have personally performed a [id number] assessment of the patient and have reviewed the PA/PERSONAL LINES ADVISOR note. My impressions are as follows: I agree with the neurologic examination as documented above. Results - Laboratory Findings CBC and BMP: 12/28/18 06:29 12/28/18 06:29 Abnormal lab findings: Abnormal lab results RBC 3.71 M/mcL (3.82-4.97) L 12/28/18 06:29 Hgb 11.2 g/dL (11.5-15.4) L 12/27/18 05:17 Hct 35.1 % (35.3-44.9) L 12/27/18 05:17 MCV 101.4 fL (83.0-100.0) H 12/27/18 05:17 MCHC 31.5 g/dL (31.6-35.5) L 12/26/18 19:25 Heparin Anti-Xa, Unfract 0.83 IU/mL (0.30-0.70) H 12/27/18 13:31 Chloride 111 mEq/L (98-107) H 12/26/18 05:17 BUN 31 mg/dL (8-23) H 12/28/18 06:29 Creatinine 1.23 mg/dL (0.60-1.20) H 12/26/18 05:17 Est GFR ( Amer) 52 (> 60) L 12/26/18 05:17 Est GFR (Non-Af Amer) 58 (> 60) L 12/28/18 06:29 BUN/Creatinine Ratio 32 (6-26) H 12/28/18 06:29 Glucose 149 mg/dL (70-105) H 12/28/18 06:29
--- NOTE | 2018-12-28 10:11 | Internal Med Progress Note ---
Hospitalist Progress Note - Encounter Date of Encounter: 12/28/18 Time of Encounter: 10:08 - Subjective Interval History: I have seen and evaluated the patient at bedside. Patient reported feeling a bit stronger today and was able to ambulate to the bathroom. denies chest pain, shortness of breath, nausea or vomiting - Exam Vitals: Temp Pulse Resp BP Pulse Ox 97.9 F 62 16 143/87 91 12/28/18 10:04 12/28/18 10:04 12/28/18 10:04 12/28/18 10:04 12/28/18 10:04 Exam: Vitals: reviewed General: Alert and oriented x4. In mild distress due to lower back pain. Cardiovascular: Irregularly irregular, normal S1 & S2, no rubs, murmurs or gallops. Lungs: CTA b/l, no wheezes or crackles. Abdomen: Obese, soft, non-tender, no rigidity. Extremities: No deformity, no edema or tenderness, strength 5/5 in the lower ext b/l. Neurological: No focal neurological abnormalities. Rest of the physical exam is non contributory - Assessment and Plan (1) Unable to ambulate Current Visit: Yes Status: Acute Assessment and Plan: patient with sciatic type pain. and unable to ambulate. CT/CT lumbar spine wo con IMPRESSION: 1. No acute lumbar spine abnormality 2. Chronic bilateral L5 pars defects and grade 1 anterolisthesis of L5 on S1. 3. Multilevel degenerative disc disease most pronounced at L3-4 and L5-S1 to a severe degree. Plan Spine surgery consulted c/w pain management (2) PAD (peripheral artery disease) Current Visit: Yes Status: Acute Assessment and Plan: LE Arterial Duplex: Impressions: Findings: Right lower extremity has minimal plaque. Findings: Left lower extremity has nonstenotic plaque. no vascular intervention warranted. (3) Sciatica Current Visit: Yes Status: Acute Assessment and Plan: plan of care as per problem #1 (4) Afib Current Visit: Yes Status: Chronic Assessment and Plan: Hx of chronic paroxysmal atrial fibrillation Plan: Continue telemetry monitoring. On an oral anticoagulant due to high chadsvasc score. (5) Diastolic CHF, chronic Current Visit: Yes Status: Chronic Assessment and Plan: Patient is euvolemic. continue with fluids restrictive strategies to 1.5 litters a day. (6) Multiple sclerosis Current Visit: Yes Status: Chronic Assessment and Plan: On prednisone 7.5mg?Po daily. On weekly interferon injection as outpatient. patient unable to have MRI of the lower back done due to having a pacemaker patient refused CT myelogram due to concern of previous anaphylactic reaction after receiving IV contrast. (7) CAD (coronary artery disease) Current Visit: Yes Status: Chronic Assessment and Plan: On atorvastatin 20 mg by mouth at bedtime. (8) COPD (chronic obstructive pulmonary disease) Current Visit: Yes Status: Chronic Assessment and Plan: Patient not on acute exacerbation. Chest is clear to auscultation. Continue br onchodilators. Incentive spirometry. (9) History of DVT (deep vein thrombosis) Current Visit: Yes Status: Resolved Assessment and Plan: Hx of previous DVT Now with new DVTs on dopplers despite being on eliquis Plan discussed with vascular surgery regarding usp anticoagulation. they recommended to dc heparin drip. and to start patient on xarelto 20mg/PO daily. no vascular intervention warranted. DVT Prophylaxis: patient with acute bilateral popliteal DVT. On an oral anticoagulant. - Summary of Assessment and Plan Summary of Assessment and Plan: Patient to remain in the hospital due to lower back pain. - Time Spent with Patient Total time spent is greater than 50% in coordination of care (as documented) at patient's floor/unit and/or counseling patient: Greater than 35 minutes (40) Internal Medicine: Result - Labs CBC & Chem 7: 12/28/18 06:29 12/28/18 06:29 Labs: Short CBC 12/28/18 Range/Units 06:29 WBC 4.7 (4.3-11.1) K/mcL Hgb 12.0 (11.5-15.4) g/dL Hct 37.1 (35.3-44.9) % Plt Count 168 (140-400) K/mcL BMP 12/28/18 06:29 Sodium 136 Potassium 4.5 Chloride 107 Carbon Dioxide 25 BUN 31 H Creatinine 0.96 Glucose 149 H Calcium 9.1 - ABG Interpretation ABG results: PT/INR, D-dimer PT 11.8 Seconds (9.4-12.1) 12/26/18 19:25 Consult Discharge Plan - Plan Referrals: Addy Fraire MD [Primary Care Provider] - (3) Sciatica Qualifiers: Qualified Code(s): M54.32 - Sciatica, left side (4) Afib Qualifiers: Qualified Code(s): I48.0 - Paroxysmal atrial fibrillation (7) CAD (coronary artery disease) Qualifiers: Qualified Code(s): I25.10 - Atherosclerotic heart disease of [place] coronary artery without angina pectoris (8) COPD (chronic obstructive pulmonary disease) Qualifiers: Qualified Code(s): J41.0 - Simple chronic bronchitis
[2018-12-28] MEDS: Fluticasone Propionate Nasal 50 MCG/SPRAY BOTTLE NS SCH ×2 (10:15→21:06)
[2018-12-28] MEDS: *HR* Rivaroxaban 15 MG TABLET PO SCH ×2 (13:27→21:04)
[2018-12-28] MEDS ORDERED: *HR* Rivaroxaban 10 MG TABLET PO SCH (17:00)
--- NOTE | 2018-12-28 17:14 | Vascular/[facility] Progress Note ---
Date of Encounter: 12/28/18 Time of Encounter: 12:30 - Assessment and plan (1) Multiple sclerosis Current Visit: Yes Status: Chronic Patient has multiple sclerosis. Patient's left lower extremity pain may be in relation to this. Neurology workup is in progress. (2) Morbid obesity with BMI of 40.0-44.9, adult Current Visit: No Status: Chronic Patient is morbidly obese. (3) DVT (deep venous thrombosis) Current Visit: Yes Status: Acute Patient has incidental finding of bilateral popliteal vein DVT. Patient does not have any obvious etiology for this. This is an unusual finding in light of the fact that the patient states that she has been taking her anticoagulation medicine. Patient has been converted at least temporarily to intravenous heparin. I believe the patient should be converted to an alternative oral agent. Patient may be discharged at any time from a vascular surgery perspective. We will re main available as needed for consultation. Qualifiers: DVT location: lower extremity Affected thrombotic vein of extremity: popliteal Chronicity: acute Laterality: bilateral Qualified Code(s): I82.433 - Acute embolism and thrombosis of popliteal vein, bilateral - Subjective Interval history: No new complaints. Patient states she was able to get up out of bed today and felt better than when she had when she first came into the hospital. I reviewed with her the duplex scan report. This shows no significant plaque formation. I do not recommend further vascular intervention from an arterial standpoint. Vital Signs, Last 4 Hours Temp Pulse Resp BP Pulse Ox 12/28/18 14:15 98.3 F 67 16 105/71 93 - Physical Examination General: Present: Conversant, No Apparent Distress HEENT: Present: Atraumatic Vascular: Present: Pulse, normal, Color/Temperature (Feet are equal in color and temperature. They're warm and pink.) Results 12/28/18 06:29 12/28/18 06:29 Lab Results, Last 24 hours 12/28/18 12/28/18 06:29 06:29 WBC 4.7 Hgb 12.0 Hct 37.1 Plt Count 168 Sodium 136 Potassium 4.5 Chloride 107 Carbon Dioxide 25 BUN 31 H Creatinine 0.96 Glucose 149 H Calcium 9.1 - Imaging / Other Tests Non Invasive Vascular Testing: image reviewed (Patient has no significant atherosclerotic occlusive disease of the lower extremity arterial system. No further workup is necessary. Patient does not need to follow up in the vascular surgery clinic as an outpatient.) Consult Discharge Plan - Plan Referrals: Addy Fraire MD [Primary Care Provider] -
[2018-12-28] MEDS: ARIPiprazole 5 MG TABLET PO SCH (21:03)
[2018-12-28] MEDS: Melatonin 3 MG TABLET PO PRN (21:12)
[2018-12-29] MEDS: *HR* HYDROcodone/Acet 5/325 mg TABLET PO PRN (03:39)
--- NOTE | 2018-12-29 07:05 | Spine Progress Note ---
Date of Encounter: 12/29/18 Time of Encounter: 07:02 - Assessment and Plan (1) Spondylolisthesis at L5-S1 level Current Visit: Yes Status: Chronic (2) Lumbar stenosis without neurogenic claudication Current Visit: Yes Status: Chronic (3) Lumbar radiculopathy Current Visit: Yes Status: Chronic On exam she is awake and alert in mild distress secondary to left leg pain. She is neurovascularly intact with regard to her bilateral lower extremities. She has a negative straight leg raise. Her hips move symmetrically. There is no clubbing cyanosis or edema. She fires all upper extremity motor groups. CT scan lumbar spine reveals multilevel degenerative changes. There is disc space height loss at L3-4. There is a grade 1 spondylolisthesis at L5-S1 with a spondylolysis of L5. There is moderate stenosis at L3-4 and L4-5 and foraminal stenosis at multiple levels. Impression: 1) lumbar stenosis 2) lumbar radiculopathy 3) spondylolisthesis L5-S1 Plan: The patient does not require acute surgical intervention. Her multiple significant comorbidities would likely preclude this anyhow. I suggest referral to pain management doctors Garland Foster Porter, or Abdirahman for consideration of lumbar epidural steroid injections or other interventional treatments. This can be done as a consultation with pain management or direct referral next week on an outpatient basis. She may require rehabilitation secondary to her ambulatory status but the patient is adamantly against this and our discussion. Subjective Principal diagnosis: Lumbar stenosis, lumbar radiculopathy, spondylolisthesis Interval history: Ms. Roberts is a 68 year old female with a PMH of arthritis, A. fib, CHF, COPD, CAD, DVT, GERD, HLD, HTN, migraines, previous [place], osteoporosis, RA, chronic kidney disease and reported MS diagnosed in 1984. She presents with concerns for low back pain and left leg pain getting progressively worse over the last 2 weeks. She notes that several days ago she began having difficulty ambulating due to back and leg pain. The pain is in the left lower extremity. She can only ambulate very short distances secondary to pain in the left leg. She denies bowel bladder symptomatology. We are asked to see regarding abnormal fin dings on CT scan of the lumbar spine and treatment options. Objective Vital signs: Vital Signs Temp Pulse Resp BP Pulse Ox 12/29/18 03:18 97.9 F 62 16 95/60 96 12/29/18 00:13 97.6 F 60 15 99/64 93 12/28/18 19:38 98.1 F 74 15 121/74 94 12/28/18 14:15 98.3 F 67 16 105/71 93 12/28/18 10:04 97.9 F 62 16 143/87 91 12/28/18 07:11 98.0 F 61 15 144/84 95 Intake and Output 12/28/18 12/28/18 12/29/18 15:59 23:59 07:59 Intake Total 820 / 872.4 480 / 480 Output Total 300 / 1200 600 / 600 Balance 520 / -327.6 -120 / -120 Intake: Oral 820 / 820 480 / 480 Output: Urine 300 / 1200 600 / 600 Other: Meal Lunch Percent of Meal Consumed 100% Stool Size Small Small Stool Consistency formed formed Stool Color Brown Brown # Voids 1 # Bowel Movements 1 1 - Labs CBC & BMP: 12/28/18 06:29 12/28/18 06:29 Labs: Abnormal lab results RBC 3.71 M/mcL (3.82-4.97) L 12/28/18 06:29 Hgb 11.2 g/dL (11.5-15.4) L 12/27/18 05:17 Hct 35.1 % (35.3-44.9) L 12/27/18 05:17 MCV 101.4 fL (83.0-100.0) H 12/27/18 05:17 MCHC 31.5 g/dL (31.6-35.5) L 12/26/18 19:25 Heparin Anti-Xa, Unfract 0.83 IU/mL (0.30-0.70) H 12/27/18 13:31 Chloride 111 mEq/L (98-107) H 12/26/18 05:17 BUN 31 mg/dL (8-23) H 12/28/18 06:29 Creatinine 1.23 mg/dL (0.60-1.20) H 12/26/18 05:17 Est GFR ( Amer) 52 (> 60) L 12/26/18 05:17 Est GFR (Non-Af Amer) 58 (> 60) L 12/28/18 06:29 BUN/Creatinine Ratio 32 (6-26) H 12/28/18 06:29 Glucose 149 mg/dL (70-105) H 12/28/18 06:29 Consult Discharge Plan - Plan Referrals: Addy Fraire MD [Primary Care Provider] -
[2018-12-29 07:09] VITALS: BP 104/69
--- NOTE | 2018-12-29 09:11 | Discharge Summary ---
Date of Encounter: 12/29/18 Time of Encounter: 09:09 - Discharge Diagnosis (1) Unable to ambulate Priority: Primary Status: Acute (2) PAD (peripheral artery disease) Priority: Secondary Status: Acute (3) Sciatica Priority: Secondary Status: Chronic Qualifiers: Laterality: left Qualified Code(s): M54.32 - Sciatica, left side (4) Afib Priority: Secondary Status: Chronic Qualifiers: Atrial fibrillation type: paroxysmal Qualified Code(s): I48.0 - Paroxysmal atrial fibrillation (5) Diastolic CHF, chronic Priority: Secondary Status: Chronic (6) Multiple sclerosis Priority: Secondary Status: Chronic (7) CAD (coronary artery disease) Priority: Secondary Status: Chronic Qualifiers: Coronary Disease-Associated Artery/Lesion type: [place] artery [place] vs. transplanted heart: [place] heart Associated angina: without angina Qualified Code(s): I25.10 - Atherosclerotic heart disease of [place] coronary artery without angina pectoris (8) COPD (chronic obstructive pulmonary disease) Priority: Secondary Status: Chronic Qualifiers: COPD type: chronic bronchitis Chronic bronchitis type: simple Qualified Code(s): J41.0 - Simple chronic bronchitis (9) History of DVT (deep vein thrombosis) Priority: Secondary Status: Resolved (10) Pacemaker Priority: Secondary Status: Chronic (11) Hypertension Priority: Secondary Status: Chronic Qualifiers: Hypertension type: essential hypertension Qualified Code(s): I10 - Essential (primary) hypertension (12) Acute kidney injury Priority: Primary Status: Resolved (13) Status post cervical spinal fusion Priority: Secondary Status: Chronic (14) DVT (deep venous thrombosis) Priority: Primary Status: Acute Qualifiers: DVT location: lower extremity Affected thrombotic vein of extremity: popliteal Chronicity: acute Laterality: bilateral Qualified Code(s): I82.433 - Acute embolism and thrombosis of popliteal vein, bilateral (15) Spondylolisthesis at L5-S1 level Priority: Secondary Status: Chronic (16) Lumbar stenosis without neurogenic claudication Priority: Secondary Status: Chronic (17) Lumbar radiculopathy Priority: Secondary Status: Chronic Hospital course: Ms. Roberts is a 68 year old female PMH of arthritis, A. fib, CHF, COPD, CAD, DVT, GERD, HLD, HTN, migraines, previous CT, osteoporosis, RA, chronic kidney disease and reported MS diagnosed in 1984. She presents with concerns for low back pain and left leg pain getting progressively worse over the last 2 weeks. She notes that several days ago she began having difficulty ambulating due to back and leg pain. The pain is in the left lower extremity. She can only ambulate very short distances secondary to pain in the left leg. She denies bowel bladder symptomatology. CT/CT lumbar spine wo con IMPRESSION: 1. No acute lumbar spine abnormality 2. Chronic bilateral L5 pars defects and grade 1 anterolisthesis of L5 on S1. 3. Multilevel degenerative disc disease most pronounced at L3-4 and L5-S1 to a severe degree. Neurology was consulted for concern for possible MS as part of the cause of patient's symptoms, they recommended CT meyolgram, patient refused study due to severe allergic reaction to IV dye, unable to obtain an MRI as patient has a pacemaker. Spine surgery was consulted and recommended against surgical intervention and recommended pain management consult. Patient refused to be seen by a pain specialist and requested to be transferred to [facility] for a second opinion. [facility] transfer center has been called, accepting group hospitalist service acute care surgeon, Med 1. Patient hemodynamically stable to be transferred. During this admission patient was also found to have LLE to be colder than the right. A venous dupplex and KELLEY were done. LE Venous Duplex: Impressions: Lower extremity abnormal deep exam: Bilateral popliteal vein demonstrates acute thrombosis. LE Arterial Duplex: Impressions: Findings: Right lower extremity has minimal plaque. Findings: Left lower extremity has nonstenotic plaque. Patient was on eliquis due to Hx of DVT and reported being compliant with her medications. Vascular surgery was consulted and recommended to change to xarelto and no surgical intervention was recommended. - Time Spent with Patient Total time spent providing and/or coordinating discharge services: Time spent: Greater than 30 minutes (35) - Discharge Medications Prescriptions: New Rivaroxaban [Xarelto] 15 mg PO BID 21 Days #42 tablet Rivaroxaban [Xarelto] 20 mg PO DAILY 30 Days #30 tablet Continued Albuterol Sulfate [Proventil Inhaler] 2 puff IH Q4H PRN PRN Reason: Shortness Of Breath Pramipexole [Mirapex] 0.5 mg PO DAILY #30 tablet Nitroglycerin [Nitrostat] 0.4 mg SL Q5M PRN PRN Reason: Chest Pain Oxycodone HCl/Acetaminophen [Percocet 7.5-325 mg Tablet] 1 tab PO BID PRN PRN Reason: Pain Tizanidine HCl 4 mg PO Q8H PRN PRN Reason: Muscle Spasm Pantoprazole Sodium [Protonix] 40 mg PO DAILY Cyanocobalamin (B-12) [Vitamin B12] 1,000 mcg PO DAILY #20 tablet Armodafinil 200 mg PO DAILY Cholecalciferol (D-3) [Vitamin D] 1,000 unit PO DAILY Atorvastatin Calcium [Lipitor] 20 mg PO HS Fluticasone Propionate Nasal [Flonase] 2 spray NS BID Venlafaxine [Effexor] 75 mg PO DAILY Baclofen 10 mg PO TID #0 Melatonin 3 mg PO HS #30 tablet ARIPiprazole [Abilify] 5 mg PO HS Gabapentin [Neurontin] 300 mg PO HS predniSONE [PredniSONE] 5 mg PO DAILY Discontinued Apixaban [Eliquis] 5 mg PO BID #60 tablet Home Medications: Albuterol Sulfate [Proventil Inhaler] 2 puff IH Q4H PRN 11/04/15 [History] Pramipexole [Mirapex] 0.5 mg PO DAILY #30 tablet 11/12/15 [Rx] Nitroglycerin [Nitrostat] 0.4 mg SL Q5M PRN 03/11/17 [History] Oxycodone HCl/Acetaminophen [Percocet 7.5-325 mg Tablet] 1 tab PO BID PRN 03/11/17 [History] Tizanidine HCl 4 mg PO Q8H PRN 04/20/17 [History] Pantoprazole Sodium [Protonix] 40 mg PO DAILY 10/01/17 [History] Cyanocobalamin (B-12) [Vitamin B12] 1,000 mcg PO DAILY #20 tablet 10/03/17 [Rx] Armodafinil 200 mg PO DAILY 04/11/18 [History] Cholecalciferol (D-3) [Vitamin D] 1,000 unit PO DAILY 04/11/18 [History] Atorvastatin Calcium [Lipitor] 20 mg PO HS 05/22/18 [History] Fluticasone Propionate Nasal [Flonase] 2 spray NS BID 06/24/18 [History] Venlafaxine [Effexor] 75 mg PO DAILY 06/24/18 [History] Baclofen 10 mg PO TID #0 06/27/18 [Rx] Melatonin 3 mg PO HS #30 tablet 06/27/18 [Rx] ARIPiprazole [Abilify] 5 mg PO HS 07/12/18 [History] Gabapentin [Neurontin] 300 mg PO HS 12/26/18 [History] predniSONE [PredniSONE] 5 mg PO DAILY 12/26/18 [History] Rivaroxaban [Xarelto] 15 mg PO BID 21 Days #42 tablet 12/29/18 [Rx] Rivaroxaban [Xarelto] 20 mg PO DAILY 30 Days #30 tablet 12/29/18 [Rx] Allergies/Adverse Reactions: Allergy/AdvReac Type Severity Reaction Status Date / Time mannitol [From Reclast] Allergy Hives Verified 12/26/18 21:19 zoledronic acid Allergy Hives Verified 12/26/18 21:19 [From Reclast] adhesive tape AdvReac Rash Verified 12/26/18 21:19 aspirin AdvReac Nausea Verified 12/26/18 21:19 cephalexin [From Keflex] AdvReac STOMACH Verified 12/26/18 21:19 UPSET codeine AdvReac Abdominal Verified 12/26/18 21:19 Pain Iodinated Contrast Media AdvReac Hives AND Verified 12/26/18 21:19 BREATHING ISSUES Date of admission: 12/25/18 23:07 Primary care physician: Addy Fraire MD Consults: 12/26/18 00:49 Consult to Pastoral Services [CONS] Routine Comment: 12/26/18 01:26 Consult to Occupational Therapy [CONS] Routine Comment: Evaluate, develop and implement POC Reason for Consult: Patient has hx of MS and degenerative disc disease. Patient has experienced worsening bilateral LE weakness to the point where she cannot ambulate. Please assess patient for ambulation strength, safety, stability, and possible home assistive/rehabilitation needs for post-discharge planning. Does patient have active BEDREST order?: Yes Is patient medically & hemodynamically stable?: Yes Patient assessed for mobility or mobilized this visit?: No Consult to Fingerprint Classifier [CONS] Routine Reason for SW Consult: Please assess patient for possible home needs for post-discharge planning. 12/26/18 01:31 Consult to Physical Therapy [CONS] Routine Comment: Evaluate, develop and implement POC Reason for Consult: Patient has hx of MS and degenerative disc disease. Patient has experienced worsening bilateral LE weakness to the point where she cannot ambulate. Please assess patient for ambulation strength, safety, stability, and possible home assistive/r ehabilitation needs for post-discharge planning. Does patient have active BEDREST order?: Yes Is patient medically & hemodynamically stable?: Yes Patient assessed for mobility or mobilized this visit?: No 12/26/18 01:36 Consult to Neurology [CONS] Routine Consulting Provider: [facility] Reason for Consult: Patient has a hx of MS she is treated for. Over the past two weeks, pts. BLEs have become progressively weaker to the point where she cannot ambulate safely. Call Completed: No 12/26/18 08:28 Consult to Nurse Navigator [CONS] Routine Comment: CHF 12/26/18 18:49 Consult to Vascular Surgery [CONS] Routine Consulting Provider: [facility] Reason for Consult: b/l LE DVTs unable to do KELLEY; assess circulation Call Completed: Yes 12/28/18 10:38 Consult to Orthopedic Surgery [CONS] Routine Consulting Provider: Orthopedic and Sports Medicine Reason for Consult: Multilevel degenerative disc disease most pronounced at L3-4 and L5-S1 to a severe degree. unable to ambulate Call Completed: Yes 12/29/18 07:41 Consult to Pain Management [CONS] Routine Consulting Provider: [facility] Reason for Consult: spinal stenosis Call Completed: Yes - Constitutional Vitals: Temp Pulse Resp BP Pulse Ox 97.6 F 60 18 104/69 96 12/29/18 07:04 12/29/18 07:04 12/29/18 07:04 12/29/18 07:04 12/29/18 07:04 General appearance: Present: cooperative, mild distress (LE pain and weakness), A&O X 3, pleasant, obese, answers questions appropriately Exam: Vitals: reviewed General: Alert and oriented x4. In mild distress due to lower back pain. Cardiovascular: Irregularly irregular, normal S1 & S2, no rubs, murmurs or gallops. Lungs: CTA b/l, no wheezes or crackles. Abdomen: Obese, soft, non-tender, no rigidity. NABS in all 4 quadrants. Extremities: No deformity, no edema or tenderness, strength 5/5 in the lower ext b/l. Neurological: No focal neurological abnormalities. Rest of the physical exam is non contributory - Patient Status Disposition: Transfer Critical Access Hosp Condition: Good Functional capacity at discharge: uses cane/walker Overall status at discharge: patient is progressing back to baseline - Discharge Instructions Follow Up With: Addy Fraire MD [Primary Care Provider] - - Diet and Activity Activity: as per physical therapy Diet: advance to your usual diet
[2018-12-29] MEDS: Cyanocobalamin (B-12) 1,000 MCG TABLET PO SCH (10:22)
[2018-12-29] MEDS: predniSONE 5 MG TABLET PO SCH (10:22)
[2018-12-29] MEDS: *HR* Rivaroxaban 15 MG TABLET PO SCH (10:22)
[2018-12-29] MEDS: Gabapentin 300 MG CAPSULE PO SCH (10:22)
[2018-12-29] MEDS: Cholecalciferol (D-3) 1,000 UNIT (25MCG) TABLET PO SCH (10:23)
[2018-12-29] MEDS: Fluticasone Propionate Nasal 50 MCG/SPRAY BOTTLE NS SCH (10:23)
[2018-12-29] MEDS: Baclofen 10 MG TABLET PO SCH (10:24)
[2018-12-29] MEDS: ARMODAFINIL 200 MG PO SCH (10:24)
[2018-12-29] MEDS: *HR* OxyCODONE/APAP 7.5/325 TABLET PO PRN (10:32)
== END 2018-12-29 12:57 | disposition critical access hospital (66) ==
LOC: EMEROOARM 18:05 → 3ANU 18:05 → SUATTDRO 23:07 → 3ANU 23:43
PROVIDERS: ADMIT Internal Medicine; ATTEND Internal Medicine

== ENCOUNTER 2019-08-04 03:00 | Inpatient (IN) ==
[2019-08-04] MEDS ORDERED: Ondansetron 4 MG/2 ML VIAL IVP ONE (03:41)
[2019-08-04] MEDS ORDERED: Morphine Sulfate 2 MG/ML SYRINGE IVP ONE (03:41)
[2019-08-04 04:22] LABS: Basophils % 0.5 %; Eosinophils # 0.1 K/mcL (0.0-0.6); Eosinophils % 1.9 %; Hematocrit 29.6 % (35.3-44.9); Hemoglobin 8.4 g/dL (11.5-15.4); Immature Granulocytes % 0.1 % (0-4); Lymphocytes % 13.8 %; Mean Corpuscular HGB Conc 28.4 g/dL (31.6-35.5); Mean Corpuscular Hemoglobin 24.4 pg (28.0-33.3); Mean Platelet Volume 10.8 fL (9.4-12.4); Monocytes # 0.6 K/mcL (0.0-1.3); Monocytes % 8.5 %; Neutrophils # 5.6 K/mcL (1.6-8.9); Platelet Count 186 K/mcL (140-400); Red Blood Count 3.44 M/mcL (3.82-4.97); Segmented Neutrophils % 75.2 %; White Blood Count 7.4 K/mcL (4.3-11.1)
[2019-08-04 04:25] LABS: INR 1.1
[2019-08-04 04:59] LABS: Anisocytosis 2+ (Not Present); Hypochromasia Present (Not Present); Platelet Estimate Normal (Normal)
[2019-08-04] MEDS ORDERED: Piperacillin/Tazobactam 3.375 GM in 0.9 % Sodium Chloride Mini Bag 100 ML IVPB ONE (05:01)
[2019-08-04 06:25] LABS: Alanine Aminotransferase 14 Units/L (7-52); Albumin 3.9 g/dL (3.5-5.7); Albumin/Globulin Ratio 1.3 (1.1-2.2); Alkaline Phosphatase 137 Units/L (34-104); Aspartate Amino Transferase 19 Units/L (13-39); BUN/Creatinine Ratio 19 (6-26); Bilirubin,Total 0.4 mg/dL (0.3-1.0); Blood Urea Nitrogen 17 mg/dL (8-23); Calcium 8.9 mg/dL (8.6-10.3); Carbon Dioxide 27 mEq/L (23-29); Chloride 107 mEq/L (98-107); Glucose 103 mg/dL (70-105); Osmolality,Calculated 290 (280-300); Potassium 4.4 mEq/L (3.5-5.1); Sodium 139 mEq/L (136-145); Total Protein 6.9 g/dL (6.4-8.9); eGFR For African Americans > 60 (> 60); eGFR For Non-African Americans > 60 (> 60)
[2019-08-04] MEDS ORDERED: Pantoprazole 40 MG VIAL IVP ONE (06:38)
[2019-08-04 06:41] LABS: Lipase < 3 Units/L (11-82)
[2019-08-04 07:09] LABS: Bilirubin,Urine Negative (Negative); Blood,Urine Negative (Negative); Clarity,Urine Clear (Clear); Color,Urine Yellow (Yellow); Glucose,Urine (UA) Normal (Normal); Ketones,Urine Negative (Negative); Leukocyte Esterase,Urine Small (Negative); Nitrite,Urine Negative (Negative); PH,Urine 5.5 pH Units (5.0-8.0); Protein,Urine 30 mg/dL (Neg-Trace); Specific Gravity,Urine 1.023 (1.010-1.025); Urobilinogen,Urine Normal (Normal)
[2019-08-04 07:12] LABS: Bacteria,Urine None Seen per hpf (None-Few); Hyaline Casts,Urine None Seen per lpf (None-Few); RBC,Urine 0-3 per hpf (0-3); Squamous Epithelial Cell,Urine Many per lpf (None-Few)
[2019-08-04] MEDS ORDERED: Naloxone 0.4 MG/ML INJ IVP PRN (07:44)
[2019-08-04] MEDS ORDERED: Ipratropium/Albuterol Neb 3 ML IH PRN (07:49)
[2019-08-04] MEDS ORDERED: Vancomycin 500 MG in 0.9 % Sodium Chloride Mini Bag 100 ML IVPB ONE (08:17)
[2019-08-04] MEDS ORDERED: Acetaminophen 325 MG TABLET PO PRN (11:22)
[2019-08-04] MEDS ORDERED: Nitroglycerin 0.4 MG TAB.SUBL SL PRN (11:23)
[2019-08-04] MEDS: predniSONE 5 MG TABLET PO SCH (12:19)
[2019-08-04] MEDS: Acetaminophen 325 MG TABLET PO PRN ×2 (12:36→19:56)
[2019-08-04] MEDS: (Armodafinil [Armodafinil] 250 MG) PO SCH (12:51)
[2019-08-04] MEDS: Piperacillin/Tazobactam 3.375 GM in 0.9 % Sodium Chloride Mini Bag 100 ML IVPB SCH ×2 (14:08→22:24)
[2019-08-04] MEDS: Pantoprazole 40 MG VIAL IVP SCH (19:43)
[2019-08-04] MEDS: Vancomycin 1,500 MG/265 ML IV.SOLN IVPB SCH (19:51)
[2019-08-04] MEDS ORDERED: *HR* OxyCODONE/APAP 7.5/325 TABLET PO ONE (21:35)
[2019-08-04] MEDS: Gabapentin 300 MG CAPSULE PO SCH (21:49)
[2019-08-04] MEDS: Loratadine 10 MG TABLET PO SCH (21:49)
[2019-08-04] MEDS: ARIPiprazole 5 MG TABLET PO SCH (21:49)
[2019-08-04] MEDS: Melatonin 3 MG TABLET PO SCH (21:50)
[2019-08-04] MEDS: Fluticasone Propionate Nasal 50 MCG/SPRAY BOTTLE NS SCH (22:25)
[2019-08-05] MEDS ORDERED: *HR* Metoprolol 5 MG/5 ML VIAL IVP ONE (05:13)
[2019-08-05] MEDS: Pantoprazole 40 MG VIAL IVP SCH ×2 (05:36→17:14)
[2019-08-05] MEDS: Piperacillin/Tazobactam 3.375 GM in 0.9 % Sodium Chloride Mini Bag 100 ML IVPB SCH (06:31)
[2019-08-05] MEDS: Gabapentin 300 MG CAPSULE PO SCH ×2 (08:49→21:52)
[2019-08-05] MEDS: Vancomycin 1,500 MG/265 ML IV.SOLN IVPB SCH (08:50)
[2019-08-05] MEDS: Fluticasone Propionate Nasal 50 MCG/SPRAY BOTTLE NS SCH ×2 (08:51→21:55)
[2019-08-05] MEDS: (Armodafinil [Armodafinil] 250 MG) PO SCH (08:52)
[2019-08-05] MEDS ORDERED: PRAMIPEXOLE DI HCL PO SCH (09:00)
[2019-08-05 09:03] LABS: Hemoglobin 7.7 g/dL (11.5-15.4)
[2019-08-05 09:04] LABS: Basophils % 0.5 %; Eosinophils # 0.1 K/mcL (0.0-0.6); Eosinophils % 2.1 %; Hematocrit 28.8 % (35.3-44.9); Immature Granulocytes % 0.7 % (0-4); Lymphocytes # 0.8 K/mcL (0.6-4.6); Lymphocytes % 17.6 %; Mean Corpuscular HGB Conc 26.7 g/dL (31.6-35.5); Mean Corpuscular Volume 89.7 fL (83.0-100.0); Mean Platelet Volume 10.5 fL (9.4-12.4); Monocytes # 0.4 K/mcL (0.0-1.3); Monocytes % 9.1 %; Neutrophils # 3.1 K/mcL (1.6-8.9); Platelet Count 190 K/mcL (140-400); Red Blood Count 3.21 M/mcL (3.82-4.97); Red Cell Distribution Width 18.7 % (11.5-14.5); White Blood Count 4.4 K/mcL (4.3-11.1)
[2019-08-05 09:09] LABS: Anisocytosis 1+ (Not Present); Hypochromasia Present (Not Present); Platelet Estimate Normal (Normal)
[2019-08-05 09:10] LABS: Calcium 8.5 mg/dL (8.6-10.3); Potassium 4.8 mEq/L (3.5-5.1)
[2019-08-05] MEDS: *HR* OxyCODONE/APAP 5/325 TABLET PO PRN ×3 (11:36→23:21)
[2019-08-05 14:42] LABS: Hematocrit 29.3 % (35.3-44.9); Hemoglobin 7.9 g/dL (11.5-15.4)
[2019-08-05] MEDS: Azithromycin 500 MG in 0.9 % Sodium Chloride 250 ML IVPB SCH (14:59)
[2019-08-05] MEDS: cefTRIAXone 1,000 MG in Water for inj. (sterile) 10 ML IVP SCH (14:59)
[2019-08-05] MEDS ORDERED: 0.9 % Sodium Chloride 250 ML ONE (15:26)
[2019-08-05] MEDS: Ondansetron 4 MG/2 ML VIAL IVP PRN (15:42)
[2019-08-05 20:33] LABS: Hematocrit 32.3 % (35.3-44.9)
[2019-08-05] MEDS: Melatonin 3 MG TABLET PO SCH (21:51)
[2019-08-05] MEDS: ARIPiprazole 5 MG TABLET PO SCH (21:51)
[2019-08-05] MEDS: Acetaminophen 325 MG TABLET PO PRN (21:51)
[2019-08-05] MEDS: Loratadine 10 MG TABLET PO SCH (21:52)
[2019-08-05] MEDS ORDERED: Furosemide 20 MG/2 ML VIAL IVP ONE (22:40)
[2019-08-06] MEDS: Acetaminophen 325 MG TABLET PO PRN (04:51)
[2019-08-06] MEDS: Pantoprazole 40 MG VIAL IVP SCH ×2 (04:52→17:27)
[2019-08-06 05:21] LABS: Basophils % 0.3 %; Eosinophils % 0.3 %; Hematocrit 30.1 % (35.3-44.9); Hemoglobin 8.3 g/dL (11.5-15.4); Immature Granulocytes % 0.9 % (0-4); Lymphocytes # 0.6 K/mcL (0.6-4.6); Lymphocytes % 10.3 %; Mean Corpuscular HGB Conc 27.6 g/dL (31.6-35.5); Mean Corpuscular Hemoglobin 24.7 pg (28.0-33.3); Mean Corpuscular Volume 89.6 fL (83.0-100.0); Mean Platelet Volume 9.7 fL (9.4-12.4); Monocytes # 0.5 K/mcL (0.0-1.3); Monocytes % 8.4 %; Neutrophils # 4.6 K/mcL (1.6-8.9); Platelet Count 180 K/mcL (140-400); Red Blood Count 3.36 M/mcL (3.82-4.97); Red Cell Distribution Width 18.2 % (11.5-14.5); Segmented Neutrophils % 79.8 %; White Blood Count 5.8 K/mcL (4.3-11.1)
[2019-08-06 05:39] LABS: BUN/Creatinine Ratio 21 (6-26); Blood Urea Nitrogen 21 mg/dL (8-23); Calcium 8.7 mg/dL (8.6-10.3); Carbon Dioxide 30 mEq/L (23-29); Chloride 102 mEq/L (98-107); Glucose 105 mg/dL (70-105); Osmolality,Calculated 289 (280-300); Potassium 4.5 mEq/L (3.5-5.1); Sodium 138 mEq/L (136-145); eGFR For African Americans > 60 (> 60); eGFR For Non-African Americans 56 (> 60)
[2019-08-06 05:41] LABS: Anisocytosis 1+ (Not Present); Hypochromasia Present (Not Present); Polychromasia 2+ (Not Present)
[2019-08-06] MEDS: cefTRIAXone 1,000 MG in Water for inj. (sterile) 10 ML IVP SCH (08:44)
[2019-08-06] MEDS: *HR* OxyCODONE/APAP 5/325 TABLET PO PRN ×2 (08:45→17:27)
[2019-08-06] MEDS: Gabapentin 300 MG CAPSULE PO SCH ×2 (08:45→21:35)
[2019-08-06] MEDS: (Armodafinil [Armodafinil] 250 MG) PO SCH (08:46)
[2019-08-06] MEDS: Fluticasone Propionate Nasal 50 MCG/SPRAY BOTTLE NS SCH ×2 (08:46→21:34)
[2019-08-06] MEDS ORDERED: Perflutren Lipid Microsphere 1.3 ML in 0.9 % Sodium Chloride 8.7 ML IVP ONE (13:08)
[2019-08-06] MEDS: Azithromycin 500 MG in 0.9 % Sodium Chloride 250 ML IVPB SCH (15:01)
[2019-08-06 15:12] LABS: Hemoglobin 8.7 g/dL (11.5-15.4)
[2019-08-06] MEDS: Melatonin 3 MG TABLET PO SCH (21:35)
[2019-08-06] MEDS: ARIPiprazole 5 MG TABLET PO SCH (21:35)
[2019-08-06] MEDS: Loratadine 10 MG TABLET PO SCH (21:35)
[2019-08-06] MEDS: Ondansetron 4 MG/2 ML VIAL IVP PRN (23:00)
[2019-08-07 02:07] LABS: Mean Corpuscular Hemoglobin 25.1 pg (28.0-33.3); Red Cell Distribution Width 18.3 % (11.5-14.5)
[2019-08-07 02:08] LABS: Hematocrit 30.2 % (35.3-44.9); Hemoglobin 8.5 g/dL (11.5-15.4); Mean Corpuscular HGB Conc 28.1 g/dL (31.6-35.5); Mean Corpuscular Volume 89.3 fL (83.0-100.0); Mean Platelet Volume 10.4 fL (9.4-12.4); Platelet Count 191 K/mcL (140-400); Red Blood Count 3.38 M/mcL (3.82-4.97); White Blood Count 6.1 K/mcL (4.3-11.1)
[2019-08-07 02:33] LABS: BUN/Creatinine Ratio 20 (6-26); Blood Urea Nitrogen 16 mg/dL (8-23); Calcium 8.9 mg/dL (8.6-10.3); Carbon Dioxide 29 mEq/L (23-29); Chloride 101 mEq/L (98-107); Glucose 106 mg/dL (70-105); Osmolality,Calculated 288 (280-300); Potassium 4.3 mEq/L (3.5-5.1); Sodium 138 mEq/L (136-145); eGFR For African Americans > 60 (> 60); eGFR For Non-African Americans > 60 (> 60)
[2019-08-07] MEDS: *HR* OxyCODONE/APAP 5/325 TABLET PO PRN ×2 (04:43→16:13)
[2019-08-07] MEDS: Pantoprazole 40 MG VIAL IVP SCH (04:44)
[2019-08-07] MEDS: Fluticasone Propionate Nasal 50 MCG/SPRAY BOTTLE NS SCH ×2 (07:37→20:43)
[2019-08-07] MEDS: cefTRIAXone 1,000 MG in Water for inj. (sterile) 10 ML IVP SCH (07:38)
[2019-08-07] MEDS: (Armodafinil [Armodafinil] 250 MG) PO SCH (07:41)
[2019-08-07] MEDS: Gabapentin 300 MG CAPSULE PO SCH ×2 (07:41→20:43)
[2019-08-07] MEDS ORDERED: *HR* Propofol 200 MG/20 ML VIAL IVP ONE (08:46)
[2019-08-07] MEDS ORDERED: Lidocaine -MPF 2% 2 ML VIAL ONE (08:46)
[2019-08-07] MEDS ORDERED: *HR* Midazolam HCl 5 MG/5 ML VIAL IVP ONE (09:32)
[2019-08-07] MEDS ORDERED: *HR* FentaNYL (PF) 100 MCG/2 ML VIAL ONE (09:32)
[2019-08-07] MEDS ORDERED: Tetracaine/Benzocaine/Butamben 1 SPRAY AEROSOL MM ONE (09:49)
[2019-08-07] MEDS ORDERED: Simethicone 40 MG/0.6 ML MLS IR ONE (09:49)
[2019-08-07] MEDS ORDERED: 0.9 % Sodium Chloride 1,000 ML IVC SCH (10:00)
[2019-08-07] MEDS: predniSONE 5 MG TABLET PO SCH (11:48)
[2019-08-07] MEDS: Azithromycin 500 MG in 0.9 % Sodium Chloride 250 ML IVPB SCH (11:50)
[2019-08-07] MEDS ORDERED: tiZANidine 4 MG TABLET PO PRN (16:21)
[2019-08-07] MEDS: *HR* Rivaroxaban 10 MG TABLET PO SCH (16:43)
[2019-08-07] MEDS: Baclofen 10 MG TABLET PO SCH (17:42)
[2019-08-07] MEDS: Acetaminophen 325 MG TABLET PO PRN (20:42)
[2019-08-07] MEDS: Loratadine 10 MG TABLET PO SCH (20:43)
[2019-08-07] MEDS: ARIPiprazole 5 MG TABLET PO SCH (20:43)
[2019-08-07] MEDS: Melatonin 3 MG TABLET PO SCH (20:43)
[2019-08-08] MEDS: *HR* OxyCODONE/APAP 5/325 TABLET PO PRN ×2 (04:36→16:30)
[2019-08-08] MEDS: Fluticasone Propionate Nasal 50 MCG/SPRAY BOTTLE NS SCH ×2 (07:23→22:00)
[2019-08-08] MEDS: cefTRIAXone 1,000 MG in Water for inj. (sterile) 10 ML IVP SCH (07:24)
[2019-08-08] MEDS: Gabapentin 300 MG CAPSULE PO SCH ×2 (07:25→21:57)
[2019-08-08] MEDS: (Armodafinil [Armodafinil] 250 MG) PO SCH (07:25)
[2019-08-08] MEDS: Baclofen 10 MG TABLET PO SCH ×2 (07:25→17:36)
[2019-08-08] MEDS ORDERED: *HR* Rivaroxaban 10 MG TABLET PO SCH (09:00)
[2019-08-08] MEDS ORDERED: (Armodafinil [Armodafinil] 250 MG) PO SCH (09:00)
[2019-08-08 09:25] LABS: Hematocrit 29.4 % (35.3-44.9); Hemoglobin 8.2 g/dL (11.5-15.4); Mean Corpuscular HGB Conc 27.9 g/dL (31.6-35.5); Mean Corpuscular Volume 89.6 fL (83.0-100.0); Platelet Count 109 K/mcL (140-400); Red Blood Count 3.28 M/mcL (3.82-4.97); Red Cell Distribution Width 19.2 % (11.5-14.5); White Blood Count 4.6 K/mcL (4.3-11.1)
[2019-08-08] MEDS: Furosemide 40 MG/4 ML VIAL IVP SCH ×2 (10:54→17:10)
[2019-08-08 11:17] LABS: BUN/Creatinine Ratio 20 (6-26); Blood Urea Nitrogen 17 mg/dL (8-23); Calcium 8.5 mg/dL (8.6-10.3); Carbon Dioxide 31 mEq/L (23-29); Chloride 102 mEq/L (98-107); Glucose 102 mg/dL (70-105); Osmolality,Calculated 292 (280-300); Sodium 140 mEq/L (136-145); eGFR For African Americans > 60 (> 60); eGFR For Non-African Americans > 60 (> 60)
[2019-08-08] MEDS: Ondansetron 4 MG/2 ML VIAL IVP PRN (11:41)
[2019-08-08] MEDS ORDERED: MethylPREDNISolone 40 MG/ML VIAL IVP SCH (11:59)
[2019-08-08 12:01] LABS: ABG Base Excess 8 mEq/L (-2 to 3); ABG HCO3 36 mEq/L (21-27); ABG Oxygen Saturation 91 % (95-98); ABG PCO2 74 mmHg (35-45); ABG PO2 71 mmHg (85-104); ABG TCO2 39 mEq/L (20-26)
[2019-08-08] MEDS: Azithromycin 250 MG TABLET PO SCH (12:10)
[2019-08-08] MEDS: Ipratropium/Albuterol Neb 3 ML IH SCH ×4 (12:23→23:41)
[2019-08-08] MEDS: Budesonide/Formoterol 160/4.5 1 PUFF INH IH SCH ×2 (12:24→20:26)
[2019-08-08] MEDS: *HR* Rivaroxaban 10 MG TABLET PO SCH (16:28)
[2019-08-08] MEDS: Loratadine 10 MG TABLET PO SCH (21:57)
[2019-08-08] MEDS: MethylPREDNISolone 40 MG/ML VIAL IVP SCH (21:58)
[2019-08-08] MEDS: Melatonin 3 MG TABLET PO SCH (21:58)
[2019-08-08] MEDS: ARIPiprazole 5 MG TABLET PO SCH (21:58)
[2019-08-09] MEDS: Ipratropium/Albuterol Neb 3 ML IH SCH ×5 (03:17→20:29)
[2019-08-09] MEDS: MethylPREDNISolone 40 MG/ML VIAL IVP SCH (03:46)
[2019-08-09 05:38] LABS: Basophils % 0.5 %; Immature Granulocytes % 0.2 % (0-4)
[2019-08-09 05:39] LABS: Hematocrit 30.6 % (35.3-44.9); Hemoglobin 8.7 g/dL (11.5-15.4); Lymphocytes # 0.3 K/mcL (0.6-4.6); Lymphocytes % 7.1 %; Mean Corpuscular HGB Conc 28.4 g/dL (31.6-35.5); Mean Corpuscular Hemoglobin 25.5 pg (28.0-33.3); Mean Corpuscular Volume 89.7 fL (83.0-100.0); Mean Platelet Volume 10.6 fL (9.4-12.4); Monocytes # 0.1 K/mcL (0.0-1.3); Neutrophils # 3.7 K/mcL (1.6-8.9); Platelet Count 225 K/mcL (140-400); Red Blood Count 3.41 M/mcL (3.82-4.97); Red Cell Distribution Width 19.6 % (11.5-14.5); Segmented Neutrophils % 90.2 %; White Blood Count 4.1 K/mcL (4.3-11.1)
[2019-08-09 05:54] LABS: BUN/Creatinine Ratio 24 (6-26); Blood Urea Nitrogen 24 mg/dL (8-23); Calcium 8.6 mg/dL (8.6-10.3); Carbon Dioxide 34 mEq/L (23-29); Chloride 99 mEq/L (98-107); Glucose 211 mg/dL (70-105); Osmolality,Calculated 296 (280-300); Sodium 138 mEq/L (136-145); eGFR For African Americans > 60 (> 60); eGFR For Non-African Americans 54 (> 60)
[2019-08-09 06:15] LABS: Anisocytosis 2+ (Not Present)
[2019-08-09 06:16] LABS: Hypochromasia Present (Not Present); Macrocytosis Present (Not Present); Microcytosis Present (Not Present)
[2019-08-09 06:17] LABS: Platelet Estimate Normal (Normal)
[2019-08-09] MEDS: Budesonide/Formoterol 160/4.5 1 PUFF INH IH SCH ×2 (07:19→20:31)
[2019-08-09 09:31] LABS: VBG HCO3 36 mEq/L (21-27); VBG PCO2 55 mmHg (41-51); VBG PH 7.42 pH Units (7.32-7.42); VBG PO2 107 mmHg (25-50)
[2019-08-09] MEDS: Baclofen 10 MG TABLET PO SCH ×3 (09:31→17:25)
[2019-08-09] MEDS: Gabapentin 300 MG CAPSULE PO SCH ×2 (09:32→22:15)
[2019-08-09] MEDS: cefTRIAXone 1,000 MG in Water for inj. (sterile) 10 ML IVP SCH (09:32)
[2019-08-09] MEDS: Fluticasone Propionate Nasal 50 MCG/SPRAY BOTTLE NS SCH ×2 (09:32→22:16)
[2019-08-09] MEDS: Furosemide 40 MG/4 ML VIAL IVP SCH ×2 (09:32→17:25)
[2019-08-09] MEDS: (Armodafinil [Armodafinil] 250 MG) PO SCH (09:33)
[2019-08-09] MEDS: Azithromycin 250 MG TABLET PO SCH (14:23)
[2019-08-09] MEDS: *HR* OxyCODONE/APAP 5/325 TABLET PO PRN ×2 (14:25→22:15)
[2019-08-09] MEDS: *HR* Rivaroxaban 10 MG TABLET PO SCH (17:25)
[2019-08-09] MEDS: Melatonin 3 MG TABLET PO SCH (22:15)
[2019-08-09] MEDS: ARIPiprazole 5 MG TABLET PO SCH (22:15)
[2019-08-09] MEDS: Loratadine 10 MG TABLET PO SCH (22:15)
[2019-08-10] MEDS: Ipratropium/Albuterol Neb 3 ML IH SCH ×6 (00:04→19:42)
[2019-08-10 06:08] LABS: VBG HCO3 40 mEq/L (21-27); VBG PCO2 71 mmHg (41-51); VBG PH 7.36 pH Units (7.32-7.42); VBG PO2 68 mmHg (25-50)
[2019-08-10 06:26] LABS: Calcium 8.6 mg/dL (8.6-10.3); Potassium 3.5 mEq/L (3.5-5.1)
[2019-08-10] MEDS: Budesonide/Formoterol 160/4.5 1 PUFF INH IH SCH ×2 (07:36→19:42)
[2019-08-10] MEDS: Furosemide 40 MG/4 ML VIAL IVP SCH (09:38)
[2019-08-10] MEDS: cefTRIAXone 1,000 MG in Water for inj. (sterile) 10 ML IVP SCH (09:38)
[2019-08-10] MEDS: predniSONE 20 MG TABLET PO SCH (09:39)
[2019-08-10] MEDS: Fluticasone Propionate Nasal 50 MCG/SPRAY BOTTLE NS SCH ×2 (09:42→21:43)
[2019-08-10] MEDS: *HR* Rivaroxaban 10 MG TABLET PO SCH (16:29)
[2019-08-10] MEDS: Loratadine 10 MG TABLET PO SCH (21:43)
[2019-08-10] MEDS: ARIPiprazole 5 MG TABLET PO SCH (21:43)
[2019-08-11] MEDS: Ipratropium/Albuterol Neb 3 ML IH SCH ×7 (00:03→23:39)
[2019-08-11 06:33] LABS: Basophils % 0.5 %; Eosinophils # 0.1 K/mcL (0.0-0.6); Eosinophils % 1.2 %; Hematocrit 38.1 % (35.3-44.9); Immature Granulocytes % 0.3 % (0-4); Lymphocytes # 1.4 K/mcL (0.6-4.6); Lymphocytes % 19.6 %; Mean Corpuscular HGB Conc 29.7 g/dL (31.6-35.5); Mean Corpuscular Hemoglobin 25.7 pg (28.0-33.3); Mean Corpuscular Volume 86.6 fL (83.0-100.0); Mean Platelet Volume 10.1 fL (9.4-12.4); Monocytes # 0.6 K/mcL (0.0-1.3); Monocytes % 8.4 %; Neutrophils # 5.1 K/mcL (1.6-8.9); Platelet Count 331 K/mcL (140-400); Red Cell Distribution Width 20.3 % (11.5-14.5)
[2019-08-11 06:34] LABS: Hemoglobin 11.3 g/dL (11.5-15.4); White Blood Count 7.3 K/mcL (4.3-11.1)
[2019-08-11 06:47] LABS: BUN/Creatinine Ratio 27 (6-26); Blood Urea Nitrogen 24 mg/dL (8-23); Calcium 9.2 mg/dL (8.6-10.3); Carbon Dioxide 38 mEq/L (23-29); Chloride 95 mEq/L (98-107); Glucose 110 mg/dL (70-105); Osmolality,Calculated 297 (280-300); Potassium 3.3 mEq/L (3.5-5.1); Sodium 141 mEq/L (136-145); eGFR For African Americans > 60 (> 60); eGFR For Non-African Americans > 60 (> 60)
[2019-08-11] MEDS: Budesonide/Formoterol 160/4.5 1 PUFF INH IH SCH ×2 (07:51→19:49)
[2019-08-11] MEDS: predniSONE 20 MG TABLET PO SCH (09:26)
[2019-08-11] MEDS: Baclofen 10 MG TABLET PO SCH ×2 (09:27→20:21)
[2019-08-11] MEDS: cefTRIAXone 1,000 MG in Water for inj. (sterile) 10 ML IVP SCH ×2 (09:27→18:46)
[2019-08-11] MEDS: Furosemide 40 MG/4 ML VIAL IVP SCH ×2 (09:27→18:46)
[2019-08-11] MEDS: Fluticasone Propionate Nasal 50 MCG/SPRAY BOTTLE NS SCH ×2 (09:31→20:22)
[2019-08-11 10:51] LABS: ABG Base Excess 14 mEq/L (-2 to 3); ABG HCO3 39 mEq/L (21-27); ABG Oxygen Saturation 92 % (95-98); ABG PCO2 45 mmHg (35-45); ABG PH 7.54 pH Units (7.32-7.45); ABG PO2 56 mmHg (85-104); ABG TCO2 40 mEq/L (20-26)
[2019-08-11] MEDS ORDERED: Ondansetron ODT 4 MG TAB.RAPDIS SL PRN (11:30)
[2019-08-11] MEDS: Cefdinir 300 MG CAPSULE PO SCH ×2 (12:12→20:21)
[2019-08-11] MEDS: Furosemide 40 MG TABLET PO SCH (12:12)
[2019-08-11] MEDS: *HR* Rivaroxaban 10 MG TABLET PO SCH (17:40)
[2019-08-11] MEDS: Acetaminophen 325 MG TABLET PO PRN (17:44)
[2019-08-11] MEDS: Loratadine 10 MG TABLET PO SCH (20:20)
[2019-08-11] MEDS: ARIPiprazole 5 MG TABLET PO SCH (20:21)
[2019-08-11] MEDS ORDERED: Melatonin 3 MG TABLET PO PRN (21:00)
[2019-08-12] MEDS: Ipratropium/Albuterol Neb 3 ML IH SCH ×3 (03:54→11:00)
[2019-08-12 06:26] VITALS: BP 137/81
[2019-08-12] MEDS: Furosemide 40 MG TABLET PO SCH (07:12)
[2019-08-12] MEDS: Baclofen 10 MG TABLET PO SCH (07:12)
[2019-08-12] MEDS: predniSONE 20 MG TABLET PO SCH (07:12)
[2019-08-12] MEDS: Cefdinir 300 MG CAPSULE PO SCH (07:12)
[2019-08-12] MEDS: Fluticasone Propionate Nasal 50 MCG/SPRAY BOTTLE NS SCH (07:13)
[2019-08-12] MEDS: Budesonide/Formoterol 160/4.5 1 PUFF INH IH SCH (07:45)
[2019-08-12 08:50] LABS: Calcium 9.1 mg/dL (8.6-10.3)
== END 2019-08-12 12:33 | disposition home health service (06) | DRG 368 ==
LOC: EMEROOARM 03:00 → 2NENU 03:00 → 3ANU 19:32 → SUATTDRO 08-06 14:37
PROVIDERS: ADMIT Family Medicine; ATTEND Internal Medicine

== ENCOUNTER 2020-02-25 16:06 | Inpatient (IN) ==
[2020-02-25] MEDS ORDERED: 0.9 % Sodium Chloride 1,000 ML IVC ONE (16:13)
[2020-02-25] MEDS ORDERED: Pantoprazole 80 MG in 0.9 % Sodium Chloride 50 ML IVPB STA (16:18)
[2020-02-25 17:34] LABS: Hematocrit 21.7 % (35.3-44.9); Hemoglobin 6.2 g/dL (11.5-15.4); Immature Granulocytes % 0.5 % (0-4); Lymphocytes # 0.3 K/mcL (0.6-4.6); Lymphocytes % 4.1 %; Mean Corpuscular HGB Conc 28.6 g/dL (31.6-35.5); Mean Corpuscular Hemoglobin 25.1 pg (28.0-33.3); Mean Corpuscular Volume 87.9 fL (83.0-100.0); Mean Platelet Volume 11.4 fL (9.4-12.4); Monocytes # 0.1 K/mcL (0.0-1.3); Monocytes % 1.1 %; Neutrophils # 6.2 K/mcL (1.6-8.9); Nucleated Red Blood Cells 0.5 /100 WBC (0); Platelet Count 256 K/mcL (140-400); Red Blood Count 2.47 M/mcL (3.82-4.97); Red Cell Distribution Width 18.2 % (11.5-14.5); Segmented Neutrophils % 94.3 %; White Blood Count 6.6 K/mcL (4.3-11.1)
[2020-02-25 17:36] LABS: INR 1.3; Prothrombin Time 14.5 Seconds (9.4-12.1)
[2020-02-25 17:39] LABS: Adenovirus Not Detected (Not Detect); Bordetella Pertussis Not Detected (Not Detect); Chlamydophila pneumoniae Not Detected (Not Detect); Coronavirus 229E Not Detected (Not Detect); Coronavirus HKU1 Not Detected (Not Detect); Coronavirus NL63 Not Detected (Not Detect); Coronavirus OC43 Not Detected (Not Detect); Human Metapneumovirus Not Detected (Not Detect); Human Rhinovirus/Enterovirus Not Detected (Not Detect); Influenza A Subtype 2009 H1 Not Detected (Not Detect); Influenza B Not Detected (Not Detect); Mycoplasma pneumoniae Not Detected (Not Detect); Parainfluenza Virus 1 Not Detected (Not Detect); Parainfluenza Virus 2 Not Detected (Not Detect); Parainfluenza Virus 3 Not Detected (Not Detect); Parainfluenza Virus 4 Not Detected (Not Detect); Respiratory Syncytial Virus Not Detected (Not Detect); SARS-CoV-2 Not Detected (Not Detect)
[2020-02-25] MEDS ORDERED: Pantoprazole 40 MG in 0.9 % Sodium Chloride Mini Bag 100 ML IVC SCH (18:00)
[2020-02-25 18:19] LABS: Alanine Aminotransferase 45 Units/L (7-52); Albumin/Globulin Ratio 1.4 (1.1-2.2); Alkaline Phosphatase 125 Units/L (34-104); Aspartate Amino Transferase 37 Units/L (13-39); BUN/Creatinine Ratio 28 (6-26); Bilirubin,Total 0.3 mg/dL (0.3-1.0); Blood Urea Nitrogen 29 mg/dL (8-23); Calcium 8.8 mg/dL (8.6-10.3); Carbon Dioxide 21 mEq/L (23-29); Chloride 110 mEq/L (98-107); Globulin 2.8 g/dL (2.4-3.5); Glucose 140 mg/dL (70-105); Lipase < 3 Units/L (11-82); Osmolality,Calculated 300 (280-300); Potassium 4.3 mEq/L (3.5-5.1); Sodium 141 mEq/L (136-145); Total Protein 6.8 g/dL (6.4-8.9); Troponin I < 0.03 ng/mL (< 0.04); eGFR For African Americans > 60 (> 60); eGFR For Non-African Americans 52 (> 60)
[2020-02-25] MEDS ORDERED: 0.9 % Sodium Chloride 250 ML ONE (18:39)
[2020-02-25] MEDS ORDERED: cloNIDine HCL 0.1 MG TABLET PO ONE (19:02)
[2020-02-25] MEDS ORDERED: *HR* FentaNYL (PF) 100 MCG/2 ML VIAL IVP ONE (19:02)
[2020-02-25] MEDS ORDERED: Acetaminophen 325 MG TABLET PO PRN (20:03)
[2020-02-25] MEDS ORDERED: Naloxone 0.4 MG/ML INJ IVP PRN (20:03)
[2020-02-25] MEDS ORDERED: Ondansetron 4 MG/2 ML VIAL IVP PRN (20:03)
[2020-02-25 23:35] LABS: Hematocrit 23.2 % (35.3-44.9); Hemoglobin 6.8 g/dL (11.5-15.4); Mean Corpuscular HGB Conc 29.3 g/dL (31.6-35.5); Mean Corpuscular Hemoglobin 25.7 pg (28.0-33.3); Mean Corpuscular Volume 87.5 fL (83.0-100.0); Mean Platelet Volume 10.9 fL (9.4-12.4); Platelet Count 221 K/mcL (140-400); Red Blood Count 2.65 M/mcL (3.82-4.97); Red Cell Distribution Width 17.6 % (11.5-14.5); White Blood Count 7.2 K/mcL (4.3-11.1)
[2020-02-25] MEDS ORDERED: 0.9 % Sodium Chloride 250 ML IVC SCH (23:45)
[2020-02-26] MEDS: Pantoprazole 40 MG VIAL IVP SCH ×2 (05:09→17:27)
[2020-02-26] MEDS ORDERED: Pantoprazole 40 MG VIAL IVP SCH (06:00)
[2020-02-26 08:11] LABS: Hematocrit 25.9 % (35.3-44.9); Hemoglobin 7.8 g/dL (11.5-15.4)
[2020-02-26 10:38] LABS: Hemoglobin 7.9 g/dL (11.5-15.4)
[2020-02-26 11:55] LABS: Bilirubin,Urine Negative (Negative); Blood,Urine Negative (Negative); Clarity,Urine Clear (Clear); Color,Urine Light-Yellow (Yellow); Glucose,Urine (UA) Normal (Normal); Ketones,Urine Negative (Negative); Leukocyte Esterase,Urine Small (Negative); Nitrite,Urine Negative (Negative); Protein,Urine Negative (Neg-Trace); RBC,Urine 0-3 per hpf (0-3); Specific Gravity,Urine 1.021 (1.010-1.025); Squamous Epithelial Cell,Urine Few per hpf (None-Few); Urobilinogen,Urine Normal (Normal)
[2020-02-26 14:44] LABS: Hemoglobin 7.8 g/dL (11.5-15.4)
[2020-02-26] MEDS: cefTRIAXone 1,000 MG in Water for inj. (sterile) 10 ML IVP SCH (16:05)
[2020-02-26] MEDS ORDERED: SODIUM CHLORIDE/NAHCO3/KCL/PEG 4,000 ML SOLN.RECON PO ONE (17:00)
[2020-02-26] MEDS: ARIPiprazole 5 MG TABLET PO SCH (20:10)
[2020-02-26] MEDS: Fluticasone Propionate Nasal 50 MCG/SPRAY BOTTLE NS SCH (20:10)
[2020-02-26 21:27] LABS: Hematocrit 27.2 % (35.3-44.9); Hemoglobin 8.2 g/dL (11.5-15.4)
[2020-02-27] MEDS: Pantoprazole 40 MG VIAL IVP SCH ×2 (05:30→20:13)
[2020-02-27 05:32] LABS: Hematocrit 26.9 % (35.3-44.9); Immature Granulocytes % 0.2 % (0-4); Lymphocytes # 1.6 K/mcL (0.6-4.6); Lymphocytes % 24.5 %; Mean Corpuscular HGB Conc 29.7 g/dL (31.6-35.5); Mean Corpuscular Volume 87.3 fL (83.0-100.0); Mean Platelet Volume 10.8 fL (9.4-12.4); Monocytes # 0.7 K/mcL (0.0-1.3); Monocytes % 10.4 %; Neutrophils # 4.1 K/mcL (1.6-8.9); Nucleated Red Blood Cells 0.3 /100 WBC (0); Platelet Count 202 K/mcL (140-400); Red Blood Count 3.08 M/mcL (3.82-4.97); Red Cell Distribution Width 17.6 % (11.5-14.5); Segmented Neutrophils % 64.9 %; White Blood Count 6.4 K/mcL (4.3-11.1)
[2020-02-27 05:44] LABS: BUN/Creatinine Ratio 28 (6-26); Blood Urea Nitrogen 25 mg/dL (8-23); Carbon Dioxide 25 mEq/L (23-29); Chloride 107 mEq/L (98-107); Glucose 91 mg/dL (70-105); Osmolality,Calculated 294 (280-300); Potassium 3.8 mEq/L (3.5-5.1); Sodium 140 mEq/L (136-145); eGFR For African Americans > 60 (> 60); eGFR For Non-African Americans > 60 (> 60)
[2020-02-27] MEDS: Fluticasone Propionate Nasal 50 MCG/SPRAY BOTTLE NS SCH ×2 (07:56→20:13)
[2020-02-27] MEDS: cefTRIAXone 1,000 MG in Water for inj. (sterile) 10 ML IVP SCH (15:55)
[2020-02-27] MEDS ORDERED: SODIUM CHLORIDE/NAHCO3/KCL/PEG 4,000 ML SOLN.RECON PO ONE (17:00)
[2020-02-27] MEDS: ARIPiprazole 5 MG TABLET PO SCH (20:13)
[2020-02-28 04:57] LABS: Eosinophils # 0.1 K/mcL (0.0-0.6); Hemoglobin 8.5 g/dL (11.5-15.4); Immature Granulocytes % 0.2 % (0-4); Lymphocytes # 1.2 K/mcL (0.6-4.6); Lymphocytes % 18.8 %; Mean Corpuscular HGB Conc 29.3 g/dL (31.6-35.5); Mean Corpuscular Hemoglobin 24.9 pg (28.0-33.3); Mean Platelet Volume 10.9 fL (9.4-12.4); Monocytes # 0.6 K/mcL (0.0-1.3); Monocytes % 8.9 %; Neutrophils # 4.4 K/mcL (1.6-8.9); Platelet Count 206 K/mcL (140-400); Red Blood Count 3.41 M/mcL (3.82-4.97); Red Cell Distribution Width 17.2 % (11.5-14.5); Segmented Neutrophils % 71.1 %; White Blood Count 6.2 K/mcL (4.3-11.1)
[2020-02-28 05:14] LABS: BUN/Creatinine Ratio 20 (6-26); Blood Urea Nitrogen 18 mg/dL (8-23); Calcium 8.1 mg/dL (8.6-10.3); Carbon Dioxide 27 mEq/L (23-29); Chloride 104 mEq/L (98-107); Glucose 99 mg/dL (70-105); Magnesium 1.7 mg/dL (1.6-2.6); Osmolality,Calculated 290 (280-300); Potassium 3.5 mEq/L (3.5-5.1); Sodium 139 mEq/L (136-145); eGFR For African Americans > 60 (> 60); eGFR For Non-African Americans > 60 (> 60)
[2020-02-28] MEDS: Pantoprazole 40 MG VIAL IVP SCH (06:45)
[2020-02-28] MEDS: Fluticasone Propionate Nasal 50 MCG/SPRAY BOTTLE NS SCH (09:23)
[2020-02-28] MEDS ORDERED: *HR* Propofol 200 MG/20 ML VIAL IVP ONE (13:07)
[2020-02-28] MEDS ORDERED: Lidocaine -MPF 2% 2 ML VIAL ONE (13:07)
[2020-02-28 14:37] VITALS: BP 115/72
== END 2020-02-28 18:09 | disposition home health service (06) | DRG 378 ==
LOC: 3ANU 16:06 → EMEROOARM 16:06 → SUATTDRO 19:29 → 3ANU 20:26 → SUATTDRO 02-27 18:01
PROVIDERS: ADMIT Family Medicine; ATTEND Family Medicine
PROC: ENDOCBX (2020-02-28 13:35)

== ENCOUNTER 2021-05-15 20:29 | Inpatient (IN) ==
[2021-05-15] MEDS ORDERED: Ipratropium/Albuterol Neb 3 ML IH ONE (22:55)
[2021-05-15 23:56] LABS: Basophils % 0.6 %; Eosinophils % 0.4 %; Hematocrit 41.2 % (35.3-44.9); Hemoglobin 13.8 g/dL (11.5-15.4); Immature Granulocytes % 0.1 % (0-4); Lymphocytes # 0.9 K/mcL (0.6-4.6); Lymphocytes % 13.3 %; Mean Corpuscular HGB Conc 33.5 g/dL (31.6-35.5); Mean Corpuscular Hemoglobin 34.7 pg (28.0-33.3); Mean Corpuscular Volume 103.5 fL (83.0-100.0); Mean Platelet Volume 10.6 fL (9.4-12.4); Monocytes # 0.5 K/mcL (0.0-1.3); Monocytes % 7.3 %; Neutrophils # 5.5 K/mcL (1.6-8.9); Platelet Count 167 K/mcL (140-400); Red Blood Count 3.98 M/mcL (3.82-4.97); Segmented Neutrophils % 78.3 %; White Blood Count 7.1 K/mcL (4.3-11.1)
[2021-05-16] LABS: VBG HCO3 25 mEq/L (21-27); VBG PCO2 48 mmHg (41-51); VBG PH 7.32 pH Units (7.32-7.42); VBG PO2 61 mmHg (25-50)
[2021-05-16 00:14] LABS: Influenza A PCR Negative (Negative); Influenza B PCR Negative (Negative); Resp. Syncytial Virus PCR Negative (Negative)
[2021-05-16 00:19] LABS: SARS-CoV-2 by PCR (In House) Positive (Negative)
[2021-05-16 00:27] LABS: Calcium 9.6 mg/dL (8.6-10.3); Potassium 5.3 mEq/L (3.5-5.1)
[2021-05-16 00:46] LABS: Troponin I 0.08 ng/mL (< 0.04)
[2021-05-16] MEDS ORDERED: Aspirin 325 MG TABLET PO ONE (01:12)
[2021-05-16] MEDS ORDERED: Ondansetron 4 MG/2 ML VIAL IVP PRN (02:31)
[2021-05-16] MEDS ORDERED: Naloxone 0.4 MG/ML INJ IVP PRN (02:31)
[2021-05-16] MEDS ORDERED: Perflutren Lipid Microsphere 1.3 ML in 0.9 % Sodium Chloride 8.7 ML IVP PRN (02:33)
[2021-05-16] MEDS: *HR* OxyCODONE/APAP 7.5/325 TABLET PO PRN ×3 (05:23→23:08)
[2021-05-16] MEDS ORDERED: Benzonatate 100 MG CAPSULE PO PRN (06:28)
[2021-05-16] MEDS ORDERED: GuaiFENesin Liq 200 MG/10 ML UDC PO PRN (06:28)
[2021-05-16] MEDS ORDERED: 0.9 % Sodium Chloride 1,000 ML IVC ONE (06:52)
[2021-05-16 07:11] LABS: Troponin I 0.07 ng/mL (< 0.04)
[2021-05-16 07:13] LABS: Basophils % 0.7 %; Eosinophils # 0.1 K/mcL (0.0-0.6); Eosinophils % 1.1 %; Hematocrit 42.3 % (35.3-44.9); Hemoglobin 13.4 g/dL (11.5-15.4); Immature Granulocytes % 0.2 % (0-4); Lymphocytes # 1.3 K/mcL (0.6-4.6); Lymphocytes % 22.5 %; Mean Corpuscular HGB Conc 31.7 g/dL (31.6-35.5); Mean Corpuscular Hemoglobin 33.4 pg (28.0-33.3); Mean Corpuscular Volume 105.5 fL (83.0-100.0); Mean Platelet Volume 11.2 fL (9.4-12.4); Monocytes # 0.7 K/mcL (0.0-1.3); Monocytes % 12.3 %; Neutrophils # 3.6 K/mcL (1.6-8.9); Platelet Count 134 K/mcL (140-400); Red Blood Count 4.01 M/mcL (3.82-4.97); Red Cell Distribution Width 13.2 % (11.5-14.5); Segmented Neutrophils % 63.2 %; White Blood Count 5.7 K/mcL (4.3-11.1)
[2021-05-16 07:32] LABS: Albumin 4.4 g/dL (3.5-5.7); Albumin/Globulin Ratio 1.5 (1.1-2.2); Bilirubin,Total 0.4 mg/dL (0.3-1.0); Calcium 9.7 mg/dL (8.6-10.3); Magnesium 2.2 mg/dL (1.6-2.6); Phosphorous 4.2 mg/dL (2.7-4.5); Potassium 5.3 mEq/L (3.5-5.1); Total Protein 7.4 g/dL (6.4-8.9)
[2021-05-16 08:28] LABS: INR 1.7; Prothrombin Time 18.9 Seconds (9.4-12.1)
[2021-05-16] MEDS: Ipratropium 1 PUFF INHALER IH SCH ×4 (08:58→20:29)
[2021-05-16] MEDS ORDERED: SODIUM ZIRCONIUM CYCLOSILICATE 5 GM POWD.PACK PO SCH (09:00)
[2021-05-16] MEDS ORDERED: *HR* Rivaroxaban 10 MG TABLET PO SCH (09:00)
[2021-05-16] MEDS: Acetaminophen 325 MG TABLET PO PRN (11:08)
[2021-05-16] MEDS: Melatonin 3 MG TABLET PO PRN (23:06)
[2021-05-16] MEDS: Baclofen 10 MG TABLET PO SCH (23:06)
[2021-05-16] MEDS: Fluticasone Propionate Nasal 50 MCG/SPRAY BOTTLE NS SCH (23:33)
[2021-05-17] MEDS: Ipratropium 1 PUFF INHALER IH SCH ×7 (00:17→23:43)
[2021-05-17] MEDS: Acetaminophen 325 MG TABLET PO PRN ×2 (01:55→16:49)
[2021-05-17] MEDS: Fluticasone Propionate Nasal 50 MCG/SPRAY BOTTLE NS SCH (03:31)
[2021-05-17 07:03] LABS: Albumin/Globulin Ratio 1.5 (1.1-2.2); Bilirubin,Total 0.4 mg/dL (0.3-1.0); Calcium 8.9 mg/dL (8.6-10.3); Globulin 2.6 g/dL (2.4-3.5); Potassium 4.5 mEq/L (3.5-5.1); Total Protein 6.6 g/dL (6.4-8.9)
[2021-05-17 07:14] LABS: Basophils % 0.2 %; Eosinophils % 0.2 %; Hematocrit 37.2 % (35.3-44.9); Hemoglobin 12.2 g/dL (11.5-15.4); Immature Granulocytes % 0.2 % (0-4); Lymphocytes # 0.8 K/mcL (0.6-4.6); Lymphocytes % 17.5 %; Mean Corpuscular HGB Conc 32.8 g/dL (31.6-35.5); Mean Corpuscular Hemoglobin 34.4 pg (28.0-33.3); Mean Corpuscular Volume 104.8 fL (83.0-100.0); Mean Platelet Volume 10.7 fL (9.4-12.4); Monocytes # 0.5 K/mcL (0.0-1.3); Neutrophils # 3.2 K/mcL (1.6-8.9); Platelet Count 152 K/mcL (140-400); Red Blood Count 3.55 M/mcL (3.82-4.97); Red Cell Distribution Width 13.1 % (11.5-14.5); Segmented Neutrophils % 70.9 %; White Blood Count 4.6 K/mcL (4.3-11.1)
[2021-05-17] MEDS: Cholecalciferol (D-3) 1,000 UNIT (25MCG) TABLET PO SCH (10:13)
[2021-05-17] MEDS: Cyanocobalamin (B-12) 1,000 MCG TABLET PO SCH (10:13)
[2021-05-17] MEDS: Baclofen 10 MG TABLET PO SCH ×2 (10:13→21:10)
[2021-05-17] MEDS: Loratadine 10 MG TABLET PO SCH (10:15)
[2021-05-17] MEDS: ARMODAFINIL 250 MG PO SCH (10:16)
[2021-05-17] MEDS: *HR* OxyCODONE/APAP 7.5/325 TABLET PO PRN ×2 (14:02→23:46)
[2021-05-17] MEDS: *HR* Rivaroxaban 15 MG TABLET PO SCH (16:55)
[2021-05-18] MEDS: Melatonin 3 MG TABLET PO PRN ×2 (00:03→20:21)
[2021-05-18] MEDS: Fluticasone Propionate Nasal 50 MCG/SPRAY BOTTLE NS SCH ×3 (01:01→20:21)
[2021-05-18 01:38] LABS: Calcium 8.8 mg/dL (8.6-10.3); Magnesium 2.2 mg/dL (1.6-2.6); Phosphorous 3.5 mg/dL (2.7-4.5); Potassium 4.5 mEq/L (3.5-5.1)
[2021-05-18] MEDS: Ipratropium 1 PUFF INHALER IH SCH ×6 (03:38→23:27)
[2021-05-18] MEDS: Cyanocobalamin (B-12) 1,000 MCG TABLET PO SCH (09:51)
[2021-05-18] MEDS: Loratadine 10 MG TABLET PO SCH (09:51)
[2021-05-18] MEDS: Cholecalciferol (D-3) 1,000 UNIT (25MCG) TABLET PO SCH (09:51)
[2021-05-18] MEDS: Baclofen 10 MG TABLET PO SCH ×2 (09:52→20:20)
[2021-05-18] MEDS: ARMODAFINIL 250 MG PO SCH (09:53)
[2021-05-18] MEDS: Acetaminophen 325 MG TABLET PO PRN ×2 (10:04→20:20)
[2021-05-18] MEDS ORDERED: 0.9 % Sodium Chloride 500 ML IVC SCH (12:30)
[2021-05-18] MEDS: *HR* OxyCODONE/APAP 7.5/325 TABLET PO PRN ×2 (15:49→23:43)
[2021-05-18] MEDS: *HR* Rivaroxaban 15 MG TABLET PO SCH (17:15)
[2021-05-19] MEDS: Ipratropium 1 PUFF INHALER IH SCH ×4 (03:50→15:50)
[2021-05-19 04:47] VITALS: PULSE 60
[2021-05-19] MEDS: Acetaminophen 325 MG TABLET PO PRN (05:22)
[2021-05-19 07:21] LABS: Phosphorous 2.6 mg/dL (2.7-4.5); Potassium 4.2 mEq/L (3.5-5.1)
[2021-05-19 07:38] VITALS: BP 134/74; TEMP 97.7
[2021-05-19] MEDS: Fluticasone Propionate Nasal 50 MCG/SPRAY BOTTLE NS SCH (09:58)
[2021-05-19] MEDS: Loratadine 10 MG TABLET PO SCH (09:59)
[2021-05-19] MEDS: Cholecalciferol (D-3) 1,000 UNIT (25MCG) TABLET PO SCH (09:59)
[2021-05-19] MEDS: Cyanocobalamin (B-12) 1,000 MCG TABLET PO SCH (09:59)
[2021-05-19] MEDS: ARMODAFINIL 250 MG PO SCH (10:00)
[2021-05-19] MEDS: Baclofen 10 MG TABLET PO SCH (10:00)
[2021-05-19] MEDS ORDERED: *HR* Rivaroxaban 10 MG TABLET PO SCH (17:00)
[2021-05-19 17:38] VITALS: O2SAT 94
== END 2021-05-19 18:42 | disposition home or self-care (01) | DRG 177 ==
LOC: 3ANU 20:29 → EMEROOARM 20:29 → SUATTDRO 05-16 01:23 → 3ANU 05-16 01:59 → SUATTDRO 05-18 13:59
PROVIDERS: ADMIT Internal Medicine; ATTEND Internal Medicine

== ENCOUNTER 2021-07-29 21:38 | Inpatient (IN) ==
[2021-07-29] MEDS ORDERED: *HR* OxyCODONE Immed Rel 5 MG TABLET PO ONE (22:12)
[2021-07-29 22:37] LABS: Basophils # 0.1 K/mcL (0.0-0.2); Basophils % 0.9 %; Eosinophils # 0.1 K/mcL (0.0-0.6); Hematocrit 41.5 % (35.3-44.9); Hemoglobin 13.7 g/dL (11.5-15.4); Lymphocytes # 1.4 K/mcL (0.6-4.6); Lymphocytes % 23.2 %; Mean Corpuscular Hemoglobin 33.2 pg (28.0-33.3); Mean Corpuscular Volume 100.5 fL (83.0-100.0); Mean Platelet Volume 10.3 fL (9.4-12.4); Monocytes # 0.9 K/mcL (0.0-1.3); Neutrophils # 3.5 K/mcL (1.6-8.9); Platelet Count 180 K/mcL (140-400); Red Blood Count 4.13 M/mcL (3.82-4.97); Red Cell Distribution Width 12.1 % (11.5-14.5); Segmented Neutrophils % 58.9 %; White Blood Count 5.9 K/mcL (4.3-11.1)
[2021-07-29 23:04] LABS: BUN/Creatinine Ratio 25 (6-26); Blood Urea Nitrogen 26 mg/dL (8-23); Calcium 9.4 mg/dL (8.6-10.3); Carbon Dioxide 22 mEq/L (23-29); Chloride 107 mEq/L (98-107); Glucose 81 mg/dL (70-105); Osmolality,Calculated 294 (280-300); Potassium 4.2 mEq/L (3.5-5.1); Sodium 140 mEq/L (136-145); Troponin I < 0.03 ng/mL (< 0.04); eGFR For African Americans > 60 (> 60); eGFR For Non-African Americans 53 (> 60)
[2021-07-30 00:22] LABS: Influenza A PCR Negative (Negative); Influenza B PCR Negative (Negative); Resp. Syncytial Virus PCR Negative (Negative); SARS-CoV-2 by PCR (In House) Negative (Negative)
[2021-07-30] MEDS ORDERED: Furosemide 20 MG/2 ML VIAL IVP ONE (01:42)
[2021-07-30] MEDS ORDERED: Naloxone 0.4 MG/ML INJ IVP PRN (03:08)
[2021-07-30] MEDS ORDERED: Benzonatate 100 MG CAPSULE PO PRN (03:59)
[2021-07-30 04:38] LABS: Basophils % 0.7 %; Eosinophils # 0.1 K/mcL (0.0-0.6); Eosinophils % 2.1 %; Hematocrit 43.4 % (35.3-44.9); Immature Granulocytes % 0.2 % (0-4); Lymphocytes # 1.6 K/mcL (0.6-4.6); Lymphocytes % 27.6 %; Mean Corpuscular HGB Conc 32.3 g/dL (31.6-35.5); Mean Corpuscular Hemoglobin 33.4 pg (28.0-33.3); Mean Corpuscular Volume 103.6 fL (83.0-100.0); Mean Platelet Volume 10.2 fL (9.4-12.4); Monocytes # 0.7 K/mcL (0.0-1.3); Monocytes % 12.5 %; Neutrophils # 3.2 K/mcL (1.6-8.9); Platelet Count 176 K/mcL (140-400); Red Blood Count 4.19 M/mcL (3.82-4.97); Red Cell Distribution Width 12.3 % (11.5-14.5); Segmented Neutrophils % 56.9 %; White Blood Count 5.6 K/mcL (4.3-11.1)
[2021-07-30 04:47] LABS: Prothrombin Time 22.4 Seconds (9.4-12.1)
[2021-07-30 04:57] LABS: Alanine Aminotransferase 25 Units/L (7-52); Albumin 4.1 g/dL (3.5-5.7); Albumin/Globulin Ratio 1.3 (1.1-2.2); Alkaline Phosphatase 95 Units/L (34-104); Aspartate Amino Transferase 28 Units/L (13-39); BUN/Creatinine Ratio 26 (6-26); Bilirubin,Direct 0.1 mg/dL (0.0-0.2); Bilirubin,Indirect 0.3 mg/dL (0.0-1.0); Bilirubin,Total 0.4 mg/dL (0.3-1.0); Blood Urea Nitrogen 27 mg/dL (8-23); Calcium 9.4 mg/dL (8.6-10.3); Carbon Dioxide 23 mEq/L (23-29); Chloride 105 mEq/L (98-107); Chol/HDL Ratio 2.4 (0-4.9); Cholesterol 139 mg/dL (< 200); Globulin 3.1 g/dL (2.4-3.5); Glucose 99 mg/dL (70-105); HDL Cholesterol 58 mg/dL (40-59); LDL Cholesterol,Calculated 65 mg/dL (< 100); Magnesium 1.9 mg/dL (1.6-2.6); Osmolality,Calculated 293 (280-300); Sodium 139 mEq/L (136-145); Total Protein 7.2 g/dL (6.4-8.9); Triglycerides 82 mg/dL (< 150); eGFR For African Americans > 60 (> 60); eGFR For Non-African Americans 52 (> 60)
[2021-07-30 04:59] LABS: VBG HCO3 24 mEq/L (21-27); VBG PCO2 42 mmHg (41-51); VBG PH 7.38 pH Units (7.32-7.42); VBG PO2 104 mmHg (25-50)
[2021-07-30 05:10] LABS: Thyroid Stimulating Hormone 0.881 mcIU/mL (0.340-5.600)
[2021-07-30] MEDS: *HR* OxyCODONE/APAP 7.5/325 TABLET PO PRN ×2 (05:19→14:16)
[2021-07-30 07:31] LABS: Lipase 22 Units/L (11-82)
[2021-07-30] MEDS: Fluticasone Propionate Nasal 50 MCG/SPRAY BOTTLE NS SCH ×2 (09:41→22:05)
[2021-07-30] MEDS: Cholecalciferol (D-3) 1,000 UNIT (25MCG) TABLET PO SCH (09:43)
[2021-07-30] MEDS: Loratadine 10 MG TABLET PO SCH (09:43)
[2021-07-30] MEDS: tiZANidine 4 MG TABLET PO SCH ×2 (09:43→22:04)
[2021-07-30] MEDS: Cyanocobalamin (B-12) 1,000 MCG TABLET PO SCH (09:43)
[2021-07-30] MEDS: Baclofen 10 MG TABLET PO SCH ×2 (09:43→22:04)
[2021-07-30] MEDS: *HR* Rivaroxaban 10 MG TABLET PO SCH (09:43)
[2021-07-30] MEDS: ARMODAFINIL 250 MG PO SCH (09:44)
[2021-07-30] MEDS: predniSONE 5 MG TABLET PO SCH (09:51)
[2021-07-30 10:41] LABS: Bilirubin,Urine Negative (Negative); Blood,Urine Negative (Negative); Clarity,Urine Clear (Clear); Color,Urine Light-Yellow (Yellow); Glucose,Urine (UA) >=1000 mg/dL (Normal); Hyaline Casts,Urine Moderate per lpf (None Seen); Ketones,Urine Negative (Negative); Leukocyte Esterase,Urine Small (Negative); Nitrite,Urine Negative (Negative); Protein,Urine Negative (Neg-Trace); RBC,Urine 0-3 per hpf (0-3); Renal Epithelial Cells,Urine Few per hpf (None-Few); Specific Gravity,Urine 1.012 (1.010-1.025); Squamous Epithelial Cell,Urine Few per hpf (None-Few); Transitional Epi Cells,Urine Few per hpf (None-Few); Urobilinogen,Urine Normal (Normal)
[2021-07-30] MEDS ORDERED: 0.9 % Sodium Chloride 500 ML IVC ONE (11:49)
[2021-07-30] MEDS: Ondansetron 4 MG/2 ML VIAL IVP PRN (14:14)
[2021-07-31] MEDS: *HR* OxyCODONE/APAP 7.5/325 TABLET PO PRN ×2 (02:14→09:30)
[2021-07-31] MEDS: Cholecalciferol (D-3) 1,000 UNIT (25MCG) TABLET PO SCH (09:30)
[2021-07-31] MEDS: Loratadine 10 MG TABLET PO SCH (09:30)
[2021-07-31] MEDS: Baclofen 10 MG TABLET PO SCH (09:30)
[2021-07-31] MEDS: Cyanocobalamin (B-12) 1,000 MCG TABLET PO SCH (09:30)
[2021-07-31] MEDS: tiZANidine 4 MG TABLET PO SCH (09:30)
[2021-07-31] MEDS: ARMODAFINIL 250 MG PO SCH (09:32)
[2021-07-31] MEDS: *HR* Rivaroxaban 10 MG TABLET PO SCH (09:32)
[2021-07-31] MEDS: Fluticasone Propionate Nasal 50 MCG/SPRAY BOTTLE NS SCH ×2 (09:37→21:07)
[2021-07-31] MEDS ORDERED: 0.9 % Sodium Chloride 500 ML IVC ONE (11:06)
[2021-07-31 14:40] LABS: Hematocrit 38.9 % (35.3-44.9); Mean Corpuscular HGB Conc 30.6 g/dL (31.6-35.5); Mean Corpuscular Hemoglobin 33.2 pg (28.0-33.3); Mean Corpuscular Volume 108.7 fL (83.0-100.0); Platelet Count 139 K/mcL (140-400); Red Blood Count 3.58 M/mcL (3.82-4.97); Red Cell Distribution Width 12.3 % (11.5-14.5); White Blood Count 4.9 K/mcL (4.3-11.1)
[2021-07-31 14:47] LABS: Hemoglobin 11.9 g/dL (11.5-15.4)
[2021-07-31 15:03] LABS: Calcium 8.7 mg/dL (8.6-10.3); Potassium 4.5 mEq/L (3.5-5.1)
[2021-08-01] MEDS: Acetaminophen 325 MG TABLET PO PRN ×2 (05:46→15:34)
[2021-08-01 07:06] LABS: Hematocrit 40.5 % (35.3-44.9); Hemoglobin 12.5 g/dL (11.5-15.4); Mean Corpuscular HGB Conc 30.9 g/dL (31.6-35.5); Mean Corpuscular Hemoglobin 33.2 pg (28.0-33.3); Mean Corpuscular Volume 107.4 fL (83.0-100.0); Mean Platelet Volume 10.6 fL (9.4-12.4); Platelet Count 158 K/mcL (140-400); Red Blood Count 3.77 M/mcL (3.82-4.97); Red Cell Distribution Width 12.1 % (11.5-14.5); White Blood Count 6.2 K/mcL (4.3-11.1)
[2021-08-01 07:59] LABS: BUN/Creatinine Ratio 23 (6-26); Blood Urea Nitrogen 22 mg/dL (8-23); Calcium 8.8 mg/dL (8.6-10.3); Carbon Dioxide 29 mEq/L (23-29); Chloride 107 mEq/L (98-107); Glucose 94 mg/dL (70-105); Osmolality,Calculated 291 (280-300); Potassium 4.5 mEq/L (3.5-5.1); Sodium 139 mEq/L (136-145); eGFR For African Americans > 60 (> 60); eGFR For Non-African Americans 57 (> 60)
[2021-08-01] MEDS: *HR* Rivaroxaban 10 MG TABLET PO SCH (08:45)
[2021-08-01] MEDS: Cholecalciferol (D-3) 1,000 UNIT (25MCG) TABLET PO SCH (08:45)
[2021-08-01] MEDS: Loratadine 10 MG TABLET PO SCH (08:45)
[2021-08-01] MEDS: Cyanocobalamin (B-12) 1,000 MCG TABLET PO SCH (08:45)
[2021-08-01] MEDS: Fluticasone Propionate Nasal 50 MCG/SPRAY BOTTLE NS SCH ×2 (08:46→21:17)
[2021-08-01] MEDS: predniSONE 5 MG TABLET PO SCH (08:53)
[2021-08-01] MEDS: ARMODAFINIL 250 MG PO SCH (08:54)
[2021-08-01] MEDS: *HR* HYDROcodone/Acet 5/325 mg TABLET PO PRN ×2 (12:29→21:14)
[2021-08-01] MEDS: Ondansetron 4 MG/2 ML VIAL IVP PRN (12:43)
[2021-08-02] MEDS: *HR* HYDROcodone/Acet 5/325 mg TABLET PO PRN ×3 (06:43→23:34)
[2021-08-02] MEDS: Fluticasone Propionate Nasal 50 MCG/SPRAY BOTTLE NS SCH ×2 (10:22→21:59)
[2021-08-02] MEDS: Loratadine 10 MG TABLET PO SCH (10:22)
[2021-08-02] MEDS: *HR* Rivaroxaban 10 MG TABLET PO SCH (10:22)
[2021-08-02] MEDS: Cholecalciferol (D-3) 1,000 UNIT (25MCG) TABLET PO SCH (10:22)
[2021-08-02] MEDS: Cyanocobalamin (B-12) 1,000 MCG TABLET PO SCH (10:22)
[2021-08-02] MEDS: ARMODAFINIL 250 MG PO SCH (10:23)
[2021-08-02] MEDS ORDERED: Morphine Sulfate 2 MG/ML SYRINGE IVP ONE (21:17)
[2021-08-03] MEDS: Acetaminophen 325 MG TABLET PO PRN ×2 (05:12→19:53)
[2021-08-03] MEDS: Fluticasone Propionate Nasal 50 MCG/SPRAY BOTTLE NS SCH ×2 (08:40→19:50)
[2021-08-03] MEDS: Loratadine 10 MG TABLET PO SCH (08:41)
[2021-08-03] MEDS: ARMODAFINIL 250 MG PO SCH (08:41)
[2021-08-03] MEDS: *HR* HYDROcodone/Acet 5/325 mg TABLET PO PRN ×2 (08:41→16:48)
[2021-08-03] MEDS: *HR* Rivaroxaban 10 MG TABLET PO SCH (08:41)
[2021-08-03] MEDS: Cholecalciferol (D-3) 1,000 UNIT (25MCG) TABLET PO SCH (08:41)
[2021-08-03] MEDS: Cyanocobalamin (B-12) 1,000 MCG TABLET PO SCH (08:41)
[2021-08-03] MEDS: Ondansetron 4 MG/2 ML VIAL IVP PRN ×2 (08:45→16:48)
[2021-08-03] MEDS ORDERED: *HR* Metoprolol 5 MG/5 ML VIAL IVP ONE (14:21)
[2021-08-03] MEDS: carvediloL 6.25 MG TABLET PO SCH (19:50)
[2021-08-04] MEDS: *HR* HYDROcodone/Acet 5/325 mg TABLET PO PRN ×2 (00:52→09:02)
[2021-08-04] MEDS: Acetaminophen 325 MG TABLET PO PRN ×2 (05:40→20:18)
[2021-08-04] MEDS ORDERED: Perflutren Lipid Microsphere 1.3 ML in 0.9 % Sodium Chloride 8.7 ML IVP PRN (08:19)
[2021-08-04] MEDS: Ondansetron 4 MG/2 ML VIAL IVP PRN ×2 (08:44→23:14)
[2021-08-04] MEDS: Loratadine 10 MG TABLET PO SCH (08:45)
[2021-08-04] MEDS: Cholecalciferol (D-3) 1,000 UNIT (25MCG) TABLET PO SCH (08:45)
[2021-08-04] MEDS: *HR* Rivaroxaban 10 MG TABLET PO SCH (08:45)
[2021-08-04] MEDS: Fluticasone Propionate Nasal 50 MCG/SPRAY BOTTLE NS SCH ×2 (08:46→20:20)
[2021-08-04] MEDS: carvediloL 6.25 MG TABLET PO SCH (08:46)
[2021-08-04] MEDS: Cyanocobalamin (B-12) 1,000 MCG TABLET PO SCH (08:46)
[2021-08-04] MEDS: ARMODAFINIL 250 MG PO SCH (08:47)
[2021-08-04] MEDS: predniSONE 5 MG TABLET PO SCH (09:02)
[2021-08-04] MEDS ORDERED: 0.9 % Sodium Chloride 500 ML IVC ONE (12:27)
[2021-08-04] MEDS ORDERED: *HR* Metoprolol 5 MG/5 ML VIAL IVP ONE (12:27)
[2021-08-04 14:55] LABS: Hemoglobin 12.8 g/dL (11.5-15.4); Mean Corpuscular HGB Conc 31.2 g/dL (31.6-35.5); Mean Corpuscular Volume 105.7 fL (83.0-100.0); Mean Platelet Volume 10.6 fL (9.4-12.4); Platelet Count 156 K/mcL (140-400); Red Blood Count 3.88 M/mcL (3.82-4.97); Red Cell Distribution Width 12.2 % (11.5-14.5)
[2021-08-04 15:15] LABS: BUN/Creatinine Ratio 15 (6-26); Blood Urea Nitrogen 15 mg/dL (8-23); Calcium 8.7 mg/dL (8.6-10.3); Carbon Dioxide 28 mEq/L (23-29); Chloride 107 mEq/L (98-107); Glucose 165 mg/dL (70-105); Osmolality,Calculated 295 (280-300); Potassium 4.2 mEq/L (3.5-5.1); Sodium 140 mEq/L (136-145); eGFR For African Americans > 60 (> 60); eGFR For Non-African Americans 54 (> 60)
[2021-08-04] MEDS ORDERED: Amiodarone Premix 360 MG/200 ML BAG IVC ONE (17:45)
[2021-08-04] MEDS ORDERED: Amiodarone Premix 150 MG/100 ML BAG IVPB ONE (17:45)
[2021-08-04 18:43] LABS: BUN/Creatinine Ratio 13 (6-26); Blood Urea Nitrogen 14 mg/dL (8-23); Calcium 8.9 mg/dL (8.6-10.3); Carbon Dioxide 29 mEq/L (23-29); Chloride 106 mEq/L (98-107); Glucose 142 mg/dL (70-105); Magnesium 1.6 mg/dL (1.6-2.6); Osmolality,Calculated 291 (280-300); Potassium 4.5 mEq/L (3.5-5.1); Sodium 139 mEq/L (136-145); eGFR For African Americans > 60 (> 60); eGFR For Non-African Americans 52 (> 60)
[2021-08-04] MEDS ORDERED: Ibuprofen 400 MG TABLET PO PRN (21:41)
[2021-08-04] MEDS: Melatonin 3 MG TABLET PO PRN (21:55)
[2021-08-05] MEDS: Amiodarone Premix 360 MG/200 ML BAG IVC SCH ×2 (01:47→12:47)
[2021-08-05] MEDS: Acetaminophen 325 MG TABLET PO PRN (03:58)
[2021-08-05 05:46] LABS: BUN/Creatinine Ratio 16 (6-26); Blood Urea Nitrogen 17 mg/dL (8-23); Calcium 8.9 mg/dL (8.6-10.3); Carbon Dioxide 28 mEq/L (23-29); Chloride 105 mEq/L (98-107); Glucose 93 mg/dL (70-105); Magnesium 1.7 mg/dL (1.6-2.6); Osmolality,Calculated 289 (280-300); Potassium 4.3 mEq/L (3.5-5.1); Sodium 139 mEq/L (136-145); eGFR For African Americans > 60 (> 60); eGFR For Non-African Americans 50 (> 60)
[2021-08-05] MEDS: Cholecalciferol (D-3) 1,000 UNIT (25MCG) TABLET PO SCH (07:44)
[2021-08-05] MEDS: Cyanocobalamin (B-12) 1,000 MCG TABLET PO SCH (07:44)
[2021-08-05] MEDS: *HR* Rivaroxaban 10 MG TABLET PO SCH (07:44)
[2021-08-05] MEDS: Loratadine 10 MG TABLET PO SCH (07:44)
[2021-08-05] MEDS: ARMODAFINIL 250 MG PO SCH (07:45)
[2021-08-05] MEDS: Fluticasone Propionate Nasal 50 MCG/SPRAY BOTTLE NS SCH ×2 (07:56→20:30)
[2021-08-05] MEDS: *HR* HYDROcodone/Acet 5/325 mg TABLET PO PRN ×2 (07:59→16:12)
[2021-08-05] MEDS: Nystatin POWDER 30 GM BOTTLE TP SCH ×2 (10:53→20:30)
[2021-08-06] MEDS: *HR* HYDROcodone/Acet 5/325 mg TABLET PO PRN ×2 (00:14→17:53)
[2021-08-06] MEDS: Melatonin 3 MG TABLET PO PRN (00:14)
[2021-08-06] MEDS: Amiodarone Premix 360 MG/200 ML BAG IVC SCH (00:56)
[2021-08-06 04:19] LABS: Hematocrit 38.5 % (35.3-44.9); Hemoglobin 12.5 g/dL (11.5-15.4); Mean Corpuscular HGB Conc 32.5 g/dL (31.6-35.5); Mean Corpuscular Hemoglobin 33.7 pg (28.0-33.3); Mean Corpuscular Volume 103.8 fL (83.0-100.0); Mean Platelet Volume 10.3 fL (9.4-12.4); Platelet Count 143 K/mcL (140-400); Red Blood Count 3.71 M/mcL (3.82-4.97); Red Cell Distribution Width 12.2 % (11.5-14.5); White Blood Count 6.3 K/mcL (4.3-11.1)
[2021-08-06 04:34] LABS: BUN/Creatinine Ratio 17 (6-26); Blood Urea Nitrogen 16 mg/dL (8-23); Calcium 8.8 mg/dL (8.6-10.3); Carbon Dioxide 30 mEq/L (23-29); Chloride 103 mEq/L (98-107); Glucose 104 mg/dL (70-105); Magnesium 1.5 mg/dL (1.6-2.6); Osmolality,Calculated 287 (280-300); Phosphorous 3.3 mg/dL (2.7-4.5); Potassium 4.6 mEq/L (3.5-5.1); Sodium 138 mEq/L (136-145); eGFR For African Americans > 60 (> 60); eGFR For Non-African Americans 59 (> 60)
[2021-08-06] MEDS: Acetaminophen 325 MG TABLET PO PRN (05:20)
[2021-08-06] MEDS ORDERED: *HR* LORazepam 0.5 MG TABLET PO ONE (08:32)
[2021-08-06] MEDS: Loratadine 10 MG TABLET PO SCH (09:15)
[2021-08-06] MEDS: Fluticasone Propionate Nasal 50 MCG/SPRAY BOTTLE NS SCH ×2 (09:15→19:40)
[2021-08-06] MEDS: Nystatin POWDER 30 GM BOTTLE TP SCH ×2 (09:16→19:41)
[2021-08-06] MEDS: predniSONE 5 MG TABLET PO SCH (09:16)
[2021-08-06] MEDS: *HR* Rivaroxaban 10 MG TABLET PO SCH (09:16)
[2021-08-06] MEDS: Cyanocobalamin (B-12) 1,000 MCG TABLET PO SCH (09:16)
[2021-08-06] MEDS: Cholecalciferol (D-3) 1,000 UNIT (25MCG) TABLET PO SCH (09:16)
[2021-08-06] MEDS: ARMODAFINIL 250 MG PO SCH (09:16)
[2021-08-06] MEDS ORDERED: Lidocaine Viscous Oral Soln 15 ML SOLUTION MM PRN (09:31)
[2021-08-06] MEDS ORDERED: 0.9 % Sodium Chloride 500 ML IVC ONE (09:31)
[2021-08-06] MEDS ORDERED: Ondansetron 4 MG/2 ML VIAL IVP PRN (09:52)
[2021-08-06] MEDS ORDERED: *HR* OxyCODONE Immed Rel 5 MG TABLET PO PRN (09:52)
[2021-08-06] MEDS ORDERED: Promethazine 6.25 MG in Water for inj. (sterile) 20 ML IVPB PRN (09:52)
[2021-08-06] MEDS ORDERED: *HR* HYDROmorphone PF 0.5 MG/0.5 ML SYRINGE IVP PRN (09:52)
[2021-08-06 13:32] LABS: INR 2.1
[2021-08-06] MEDS: Ondansetron 4 MG/2 ML VIAL IVP PRN (17:54)
[2021-08-07] MEDS: *HR* HYDROcodone/Acet 5/325 mg TABLET PO PRN ×3 (02:00→23:02)
[2021-08-07 05:16] LABS: BUN/Creatinine Ratio 19 (6-26); Blood Urea Nitrogen 19 mg/dL (8-23); Calcium 8.6 mg/dL (8.6-10.3); Carbon Dioxide 29 mEq/L (23-29); Chloride 102 mEq/L (98-107); Glucose 117 mg/dL (70-105); Magnesium 2.2 mg/dL (1.6-2.6); Osmolality,Calculated 285 (280-300); Phosphorous 3.9 mg/dL (2.7-4.5); Potassium 4.6 mEq/L (3.5-5.1); Sodium 136 mEq/L (136-145); eGFR For African Americans > 60 (> 60); eGFR For Non-African Americans 55 (> 60)
[2021-08-07] MEDS: ARMODAFINIL 250 MG PO SCH (08:32)
[2021-08-07] MEDS: Fluticasone Propionate Nasal 50 MCG/SPRAY BOTTLE NS SCH ×2 (08:37→22:54)
[2021-08-07] MEDS: *HR* Rivaroxaban 10 MG TABLET PO SCH (08:40)
[2021-08-07] MEDS: Loratadine 10 MG TABLET PO SCH (08:40)
[2021-08-07] MEDS: Cholecalciferol (D-3) 1,000 UNIT (25MCG) TABLET PO SCH (08:40)
[2021-08-07] MEDS: Cyanocobalamin (B-12) 1,000 MCG TABLET PO SCH (08:40)
[2021-08-07] MEDS: Nystatin POWDER 30 GM BOTTLE TP SCH ×2 (08:41→22:54)
[2021-08-08] MEDS: Cyanocobalamin (B-12) 1,000 MCG TABLET PO SCH (08:32)
[2021-08-08] MEDS: *HR* Rivaroxaban 10 MG TABLET PO SCH (08:32)
[2021-08-08] MEDS: *HR* HYDROcodone/Acet 5/325 mg TABLET PO PRN (08:32)
[2021-08-08] MEDS: Nystatin POWDER 30 GM BOTTLE TP SCH (08:33)
[2021-08-08] MEDS: Cholecalciferol (D-3) 1,000 UNIT (25MCG) TABLET PO SCH (08:33)
[2021-08-08] MEDS: Fluticasone Propionate Nasal 50 MCG/SPRAY BOTTLE NS SCH (08:33)
[2021-08-08] MEDS: ARMODAFINIL 250 MG PO SCH (08:33)
[2021-08-08] MEDS: Loratadine 10 MG TABLET PO SCH (08:33)
[2021-08-08] MEDS: predniSONE 5 MG TABLET PO SCH (08:35)
[2021-08-08 13:41] VITALS: BP 133/78; PULSE 67; TEMP 97.5; O2SAT 94
== END 2021-08-08 16:31 | disposition home health service (06) | DRG 308 ==
LOC: EMEROOARM 21:38 → 3BNU 21:38 → SUATTDRO 07-30 02:37 → 3BNU 07-30 03:07 → 2NNU 08-04 18:44 → 2ANU 08-07 22:03
PROVIDERS: ADMIT Internal Medicine; ATTEND Nurse Practitioner

== ENCOUNTER 2021-12-07 16:55 | Inpatient (IN) ==
[2021-12-07 18:33] LABS: BUN/Creatinine Ratio 28 (6-26); Blood Urea Nitrogen 27 mg/dL (8-23); Calcium 9.1 mg/dL (8.6-10.3); Carbon Dioxide 22 mEq/L (23-29); Chloride 105 mEq/L (98-107); Glucose 105 mg/dL (70-105); Osmolality,Calculated 289 (280-300); Potassium 4.8 mEq/L (3.5-5.1); Sodium 137 mEq/L (136-145); Troponin I < 0.03 ng/mL (< 0.04)
[2021-12-07 18:44] LABS: Basophils % 0.5 %; Eosinophils # 0.1 K/mcL (0.0-0.6); Eosinophils % 1.2 %; Hematocrit 31.9 % (35.3-44.9); Hemoglobin 9.3 g/dL (11.5-15.4); Immature Granulocytes % 0.2 % (0-4); Lymphocytes # 0.8 K/mcL (0.6-4.6); Lymphocytes % 10.3 %; Mean Corpuscular HGB Conc 29.2 g/dL (31.6-35.5); Mean Corpuscular Hemoglobin 26.9 pg (28.0-33.3); Mean Corpuscular Volume 92.2 fL (83.0-100.0); Mean Platelet Volume 10.1 fL (9.4-12.4); Monocytes # 0.5 K/mcL (0.0-1.3); Monocytes % 5.6 %; Neutrophils # 6.6 K/mcL (1.6-8.9); Platelet Count 234 K/mcL (140-400); Red Blood Count 3.46 M/mcL (3.82-4.97); Red Cell Distribution Width 15.9 % (11.5-14.5); Segmented Neutrophils % 82.2 %; White Blood Count 8.1 K/mcL (4.3-11.1)
[2021-12-07] MEDS ORDERED: Ipratropium/Albuterol Neb 3 ML IH ONE (21:21)
[2021-12-07] MEDS ORDERED: Furosemide 40 MG/4 ML VIAL IVP ONE (21:21)
[2021-12-07] MEDS ORDERED: methylPREDNISolone 125 MG/2 ML VIAL IVP ONE (21:21)
[2021-12-07 21:57] LABS: Bilirubin,Urine Negative (Negative); Blood,Urine Negative (Negative); Clarity,Urine Clear (Clear); Color,Urine Light-Yellow (Yellow); Glucose,Urine (UA) >=1000 mg/dL (Normal); Ketones,Urine Negative (Negative); Leukocyte Esterase,Urine Small (Negative); Mucus,Urine Few per lpf (None-Few); Nitrite,Urine Negative (Negative); Protein,Urine Negative (Neg-Trace); RBC,Urine 0-3 per hpf (0-3); Specific Gravity,Urine 1.021 (1.010-1.025); Squamous Epithelial Cell,Urine Few per hpf (None-Few); Urobilinogen,Urine Normal (Normal)
[2021-12-08] MEDS ORDERED: *HR* OxyCODONE/APAP 7.5/325 TABLET PO ONE (00:10)
[2021-12-08] MEDS ORDERED: cefTRIAXone 2,000 MG in 0.9 % Sodium Chloride 20 ML IVP ONE (01:18)
[2021-12-08] MEDS ORDERED: Naloxone 0.4 MG/ML INJ IVP PRN (01:22)
[2021-12-08] MEDS ORDERED: Ondansetron 4 MG/2 ML VIAL IVP PRN (01:22)
[2021-12-08] MEDS ORDERED: Ipratropium/Albuterol Neb 3 ML IH PRN (01:29)
[2021-12-08 02:35] LABS: Influenza A PCR Negative (Negative); Influenza B PCR Negative (Negative); Resp. Syncytial Virus PCR Negative (Negative)
[2021-12-08 03:17] LABS: SARS-CoV-2 by PCR (In House) Negative (Negative)
[2021-12-08 03:52] LABS: Basophils % 0.1 %; Hematocrit 31.5 % (35.3-44.9); Hemoglobin 9.1 g/dL (11.5-15.4); Immature Granulocytes % 0.3 % (0-4); Lymphocytes # 0.4 K/mcL (0.6-4.6); Lymphocytes % 4.7 %; Mean Corpuscular HGB Conc 28.9 g/dL (31.6-35.5); Mean Corpuscular Volume 93.5 fL (83.0-100.0); Mean Platelet Volume 10.8 fL (9.4-12.4); Monocytes # 0.1 K/mcL (0.0-1.3); Monocytes % 0.9 %; Neutrophils # 7.3 K/mcL (1.6-8.9); Platelet Count 194 K/mcL (140-400); Red Blood Count 3.37 M/mcL (3.82-4.97); White Blood Count 7.8 K/mcL (4.3-11.1)
[2021-12-08 03:58] LABS: INR 1.1; Prothrombin Time 11.8 Seconds (9.4-12.1)
[2021-12-08 04:19] LABS: Alanine Aminotransferase 21 Units/L (7-52); Albumin 4.2 g/dL (3.5-5.7); Albumin/Globulin Ratio 1.3 (1.1-2.2); Alkaline Phosphatase 90 Units/L (34-104); Aspartate Amino Transferase 20 Units/L (13-39); BUN/Creatinine Ratio 30 (6-26); Bilirubin,Direct 0.1 mg/dL (0.0-0.2); Bilirubin,Indirect 0.1 mg/dL (0.0-1.0); Bilirubin,Total 0.2 mg/dL (0.3-1.0); Blood Urea Nitrogen 37 mg/dL (8-23); Calcium 9.1 mg/dL (8.6-10.3); Carbon Dioxide 22 mEq/L (23-29); Chloride 105 mEq/L (98-107); Globulin 3.3 g/dL (2.4-3.5); Glucose 142 mg/dL (70-105); Osmolality,Calculated 303 (280-300); Potassium 4.3 mEq/L (3.5-5.1); Sodium 141 mEq/L (136-145); Total Protein 7.5 g/dL (6.4-8.9)
[2021-12-08 04:27] LABS: Troponin I < 0.03 ng/mL (< 0.04)
[2021-12-08 04:41] LABS: Thyroid Stimulating Hormone 0.372 mcIU/mL (0.340-5.600)
[2021-12-08] MEDS: Acetaminophen 325 MG TABLET PO PRN ×2 (05:01→11:04)
[2021-12-08] MEDS: methylPREDNISolone 125 MG/2 ML VIAL IVP SCH ×2 (05:50→18:00)
[2021-12-08 06:04] LABS: Adenovirus Not Detected (Not Detect); Bordetella Pertussis Not Detected (Not Detect); Chlamydophila pneumoniae Not Detected (Not Detect); Coronavirus 229E Not Detected (Not Detect); Coronavirus HKU1 Not Detected (Not Detect); Coronavirus NL63 Not Detected (Not Detect); Coronavirus OC43 Not Detected (Not Detect); Human Metapneumovirus Not Detected (Not Detect); Human Rhinovirus/Enterovirus Not Detected (Not Detect); Influenza A Subtype 2009 H1 Not Detected (Not Detect); Influenza B Not Detected (Not Detect); Mycoplasma pneumoniae Not Detected (Not Detect); Parainfluenza Virus 1 Not Detected (Not Detect); Parainfluenza Virus 2 Not Detected (Not Detect); Parainfluenza Virus 3 Not Detected (Not Detect); Parainfluenza Virus 4 Not Detected (Not Detect); Respiratory Syncytial Virus Not Detected (Not Detect); SARS-CoV-2 Not Detected (Not Detect)
[2021-12-08] MEDS ORDERED: Furosemide 40 MG/4 ML VIAL IVP SCH (09:00)
[2021-12-08] MEDS: *HR* OxyCODONE/APAP 7.5/325 TABLET PO PRN ×2 (14:30→22:50)
[2021-12-08] MEDS: *HR* Rivaroxaban 10 MG TABLET PO SCH (17:59)
[2021-12-08] MEDS ORDERED: cefTRIAXone 1,000 MG in 0.9 % Sodium Chloride Mini Bag 100 ML IVPB SCH (18:00)
[2021-12-08] MEDS: Furosemide 20 MG/2 ML VIAL IVP SCH (21:17)
[2021-12-09 05:11] LABS: Hemoglobin 9.6 g/dL (11.5-15.4)
[2021-12-09 05:13] LABS: Basophils % 0.1 %; Hematocrit 33.5 % (35.3-44.9); Immature Granulocytes % 0.3 % (0-4); Lymphocytes # 0.4 K/mcL (0.6-4.6); Lymphocytes % 4.5 %; Mean Corpuscular HGB Conc 28.7 g/dL (31.6-35.5); Mean Corpuscular Hemoglobin 27.2 pg (28.0-33.3); Mean Corpuscular Volume 94.9 fL (83.0-100.0); Mean Platelet Volume 10.5 fL (9.4-12.4); Monocytes # 0.3 K/mcL (0.0-1.3); Monocytes % 2.8 %; Neutrophils # 8.2 K/mcL (1.6-8.9); Platelet Count 222 K/mcL (140-400); Red Blood Count 3.53 M/mcL (3.82-4.97); Red Cell Distribution Width 16.2 % (11.5-14.5); Segmented Neutrophils % 92.3 %; White Blood Count 8.9 K/mcL (4.3-11.1)
[2021-12-09 05:27] LABS: Calcium 9.6 mg/dL (8.6-10.3); Magnesium 2.3 mg/dL (1.6-2.6); Phosphorous 4.3 mg/dL (2.7-4.5)
[2021-12-09] MEDS: methylPREDNISolone 125 MG/2 ML VIAL IVP SCH ×2 (06:20→18:07)
[2021-12-09] MEDS: Sennosides/Docusate Sodium TABLET PO SCH ×2 (07:59→22:04)
[2021-12-09] MEDS: Cholecalciferol (D-3) 1,000 UNIT (25MCG) TABLET PO SCH (08:00)
[2021-12-09] MEDS: tiZANidine 4 MG TABLET PO SCH ×3 (08:00→22:03)
[2021-12-09] MEDS: Cyanocobalamin (B-12) 1,000 MCG TABLET PO SCH (08:00)
[2021-12-09] MEDS: Furosemide 20 MG/2 ML VIAL IVP SCH ×2 (08:01→22:04)
[2021-12-09] MEDS ORDERED: Furosemide 20 MG TABLET PO SCH (09:00)
[2021-12-09] MEDS: Fluticasone Propionate Nasal 50 MCG/SPRAY BOTTLE NS SCH ×2 (10:22→22:05)
[2021-12-09] MEDS: *HR* OxyCODONE/APAP 7.5/325 TABLET PO PRN ×2 (12:46→22:02)
[2021-12-09] MEDS: *HR* Rivaroxaban 10 MG TABLET PO SCH (16:22)
[2021-12-10] MEDS: methylPREDNISolone 125 MG/2 ML VIAL IVP SCH (06:05)
[2021-12-10] MEDS: Fluticasone Propionate Nasal 50 MCG/SPRAY BOTTLE NS SCH ×2 (08:37→21:08)
[2021-12-10] MEDS: Furosemide 20 MG/2 ML VIAL IVP SCH ×2 (08:38→21:07)
[2021-12-10] MEDS: Sennosides/Docusate Sodium TABLET PO SCH ×2 (08:39→21:05)
[2021-12-10] MEDS: Cholecalciferol (D-3) 1,000 UNIT (25MCG) TABLET PO SCH (08:39)
[2021-12-10] MEDS: tiZANidine 4 MG TABLET PO SCH ×3 (08:40→21:05)
[2021-12-10] MEDS: Cyanocobalamin (B-12) 1,000 MCG TABLET PO SCH (08:41)
[2021-12-10] MEDS: Azithromycin 250 MG TABLET PO SCH (08:41)
[2021-12-10] MEDS: *HR* OxyCODONE/APAP 7.5/325 TABLET PO PRN ×2 (09:03→18:41)
[2021-12-10 14:51] LABS: Hemoglobin 9.3 g/dL (11.5-15.4)
[2021-12-10] MEDS: *HR* Rivaroxaban 10 MG TABLET PO SCH (17:56)
[2021-12-11 03:00] LABS: Basophils % 0.1 %; Hematocrit 31.8 % (35.3-44.9); Immature Granulocytes % 0.2 % (0-4); Mean Corpuscular Volume 91.1 fL (83.0-100.0); Red Blood Count 3.49 M/mcL (3.82-4.97); Segmented Neutrophils % 70.6 %
[2021-12-11 03:01] LABS: Eosinophils % 0.1 %; Hemoglobin 9.4 g/dL (11.5-15.4); Lymphocytes # 1.8 K/mcL (0.6-4.6); Lymphocytes % 17.9 %; Mean Corpuscular HGB Conc 29.6 g/dL (31.6-35.5); Mean Corpuscular Hemoglobin 26.9 pg (28.0-33.3); Mean Platelet Volume 10.1 fL (9.4-12.4); Monocytes # 1.1 K/mcL (0.0-1.3); Monocytes % 11.1 %; Nucleated Red Blood Cells 0.2 /100 WBC (0); Platelet Count 240 K/mcL (140-400); Red Cell Distribution Width 16.4 % (11.5-14.5); White Blood Count 9.9 K/mcL (4.3-11.1)
[2021-12-11 03:15] LABS: Magnesium 2.2 mg/dL (1.6-2.6); Phosphorous 5.1 mg/dL (2.7-4.5); Potassium 3.6 mEq/L (3.5-5.1)
[2021-12-11] MEDS: Cyanocobalamin (B-12) 1,000 MCG TABLET PO SCH (09:25)
[2021-12-11] MEDS: Cholecalciferol (D-3) 1,000 UNIT (25MCG) TABLET PO SCH (09:25)
[2021-12-11] MEDS: Azithromycin 250 MG TABLET PO SCH (09:25)
[2021-12-11] MEDS: *HR* OxyCODONE/APAP 7.5/325 TABLET PO PRN ×2 (09:25→17:08)
[2021-12-11] MEDS: tiZANidine 4 MG TABLET PO SCH ×3 (09:26→20:25)
[2021-12-11] MEDS: predniSONE 20 MG TABLET PO SCH (09:26)
[2021-12-11] MEDS: Fluticasone Propionate Nasal 50 MCG/SPRAY BOTTLE NS SCH ×2 (09:27→20:24)
[2021-12-11] MEDS: Sennosides/Docusate Sodium TABLET PO SCH ×2 (09:27→20:25)
[2021-12-11] MEDS: *HR* Rivaroxaban 10 MG TABLET PO SCH (17:06)
[2021-12-12] MEDS: *HR* OxyCODONE/APAP 7.5/325 TABLET PO PRN ×2 (01:10→10:22)
[2021-12-12] MEDS: tiZANidine 4 MG TABLET PO SCH ×2 (08:10→17:00)
[2021-12-12] MEDS: predniSONE 20 MG TABLET PO SCH (08:10)
[2021-12-12] MEDS: Cyanocobalamin (B-12) 1,000 MCG TABLET PO SCH (08:11)
[2021-12-12] MEDS: Azithromycin 250 MG TABLET PO SCH (08:11)
[2021-12-12] MEDS: Cholecalciferol (D-3) 1,000 UNIT (25MCG) TABLET PO SCH (08:11)
[2021-12-12] MEDS: Sennosides/Docusate Sodium TABLET PO SCH (08:11)
[2021-12-12] MEDS: Fluticasone Propionate Nasal 50 MCG/SPRAY BOTTLE NS SCH (08:12)
[2021-12-12] MEDS ORDERED: Furosemide 20 MG TABLET PO SCH (09:00)
[2021-12-12 11:50] VITALS: BP 98/69; PULSE 68; TEMP 98.2; O2SAT 95
== END 2021-12-12 16:55 | DRG 291 ==
LOC: 3BNU 16:55 → EMEROOARM 16:55 → SUATTDRO 12-08 01:20 → 3BNU 12-08 02:31
PROVIDERS: ADMIT Student in an Organized Health Care Education/Training Program; ATTEND Internal Medicine